=== PATIENT | female | born 1945 | race Two or more races ===

== ENCOUNTER 2024-02-01 03:30 | Inpatient (IN) | payer OTHER, MEDICARE ==
[~2024-02-01] VITALS: Ht 147.3 cm; Wt 84.2 kg
[~2024-02-01 03:30] MED LIST: ALBU108A5 INH; ALLO300T2 PO; AMLO1TAB22 PO; APIX5TAB PO; ASPI-543 PO; ATOR40TA52 PO; CALC750C98 PO; CEPH250C PO; CETI-195 PO; CHOL20007 PO; ERY05OO OP; FURO40TA4 PO; FUROPOW8 XX; LISI10TA34 PO; LISI20TA56 PO; METO25TA93 PO; MOME1AER3 INH; MOME1AER8 INH; MORP15TA PO; ONDA-155 PO; OXYC325T14 PO; PERCOT PO; POTA-228 PO; POTA-264 PO
[2024-02-01 03:45] VITALS: PULSE 91; RESP 22; O2SAT 97
[2024-02-01 04:12] LABS: Basophils # (auto) 0 10 ^3/uL (0-0.2); Basophils % (auto) 0.3 % (0.0-2.0); Eosinophils # (auto) 0.1 10 ^3/uL (0-0.8); Hematocrit 40.1 % (36.0-46.0); Hemoglobin 13.3 g/dL (12.2-16.2); Lymphocytes # (auto) 0.7 10 ^3/uL (0.4-5.4); Lymphocytes % (auto) 6.7 % (10.0-50.0); Mean Corpuscular Hgb Conc. 33.2 g/dL (32.0-36.0); Mean Corpuscular Volume 93.5 fL (80.0-100.0); Monocytes # (auto) 0.4 10 ^3/uL (0-1.3); Monocytes % (auto) 3.8 % (0.0-12.0); Neutrophils # (auto) 8.9 10 ^3/uL (1.6-8.6); Neutrophils % (auto) 88.2 % (37.0-80.0); Platelet Count (auto) 225 10^3/uL (140-450); Red Blood Cells 4.29 10^6/uL (4.0-5.20); Red Cell Distribution Width 21.2 % (11.8-14.3); White Blood Cell 10.1 10^3/uL (4.4-10.8)
[2024-02-01 04:48] LABS: Chloride 110 mmol/L (98-107); Potassium 4.2 mmol/L (3.5-5.1); Sodium 140 mmol/L (136-145)
[2024-02-01 04:49] LABS: Anion Gap 9 (5-15); Carbon Dioxide 21 mmol/L (20-31)
[2024-02-01 04:50] LABS: Calcium 10.2 mg/dL (8.7-10.4)
[2024-02-01] MEDS: FUROSEMIDE 40 MG/4 ML VIAL IV ONE (04:50)
[2024-02-01 04:55] LABS: BUN/Creatinine Ratio 17.9 (10.0-20.0); Blood Urea Nitrogen 15 mg/dL (9-23); Glucose 129 mg/dL (74-106)
[2024-02-01 04:55] LABS: Urine Bacteria FEW /hpf (None Seen); Urine Blood TRACE /uL (Negative); Urine Clarity Clear (Clear); Urine Color Yellow (Yellow); Urine Mucus FEW (None Seen); Urine Protein, UAD TRACE (Negative); Urine Urobilinogen Normal (Negative); Urine WBC <1 /hpf (0 - 5)
[2024-02-01] MEDS ORDERED: NITROGLYCERIN 0.4 MG SL TAB SL PRN (05:30)
[2024-02-01] MEDS: MORPHINE SULFATE 4 MG/ML SYR/VIAL IV ONE (06:11)
[2024-02-01] MEDS: ONDANSETRON HCL 4 MG/2 ML VIAL IV ONE (06:12)
[2024-02-01] MEDS: FUROSEMIDE 20 MG/2 ML VIAL IV SCH (06:21)
[2024-02-01 07:25] VITALS: PULSE 91; RESP 22; O2SAT 97
[2024-02-01 08:08] LABS: COVID19 ANTIGEN SOFIA FIA NEGATIVE (NEGATIVE); Rapid Influenza A Negative (Negative); Rapid Influenza B Negative (Negative)
[2024-02-01] MEDS: HYDROcodone-ACET 10/325MG TAB PO PRN (08:44)
[2024-02-01] MEDS: LISINOPRIL 20 MG TAB PO SCH (10:34)
[2024-02-01] MEDS: ASPirin 81 mg TAB PO SCH (10:34)
[2024-02-01] MEDS: ALLOPURINOL 100 MG TAB PO SCH (10:34)
[2024-02-01] MEDS: APIXABAN 5 MG TAB PO SCH (10:34)
[2024-02-01] MEDS: amLODIPine BESYLATE 5 MG TAB PO SCH (10:35)
[2024-02-01] MEDS: MORPHINE SULFATE INJ 2 MG/ml SYRG IV PRN (10:37)
[2024-02-01] MEDS: METOPROLOL SUCCINATE XL 50 MG TAB PO SCH (12:57)
[2024-02-01] MEDS: OXYCODONE W/ ACETAMINOPHEN 5/325MG TABLET PO PRN (13:24)
[2024-02-01] MEDS: CLINDAMYCIN HCL 150 MG CAP PO SCH (14:22)
[2024-02-01 15:09] LABS: INR 1.33 (0.9-1.15); Partial Thromboplastin Time 33.1 SEC (24.5-34.5); Prothrombin Time 13.8 sec (9.3-11.8)
[2024-02-01 15:27] VITALS: BP 115/72; PULSE 94; RESP 19; TEMP 98.4; O2SAT 96
[2024-02-01 15:54] VITALS: PULSE 94; RESP 19
[2024-02-01 16:35] LABS: Magnesium 1.6 mg/dL (1.6-2.6)
[2024-02-01 20:30] VITALS: PULSE 86; RESP 16; O2SAT 93
[2024-02-01 21:00] VITALS: BP 106/54; PULSE 101; RESP 16; TEMP 98; O2SAT 93
[2024-02-01] MEDS: ATORVASTATIN 20 MG TAB PO SCH (22:35)
[2024-02-02] VITALS (8 sets, daily range): BP systolic 101–113; BP diastolic 50–70; PULSE 76–86; RESP 16–18; TEMP 98–98.7; O2SAT 92–97
[2024-02-02 06:51] LABS: Chloride 104 mmol/L (98-107); Potassium 3.3 mmol/L (3.5-5.1); Sodium 140 mmol/L (136-145)
[2024-02-02 06:52] LABS: Anion Gap 6 (5-15); Calcium 9.2 mg/dL (8.7-10.4); Carbon Dioxide 30 mmol/L (20-31)
[2024-02-02 06:57] LABS: BUN/Creatinine Ratio 11.9 (10.0-20.0); Blood Urea Nitrogen 10 mg/dL (9-23); Glucose 134 mg/dL (74-106)
[2024-02-02 06:58] LABS: Magnesium 1.2 mg/dL (1.6-2.6)
[2024-02-02] MEDS: EMPAGLIFLOZIN 10 MG TAB PO SCH (09:06)
[2024-02-02] MEDS: FLORASTOR (S. BOULARDII) 250 MG CAP PO SCH (09:07)
[2024-02-02] MEDS ORDERED: SENN-36 PO (09:27)
[2024-02-02] MEDS ORDERED: MOME1AER3 INH (09:27)
[2024-02-02] MEDS ORDERED: PERCOT PO (09:27)
[2024-02-02] MEDS: MAGNESIUM SULFATE 1GM/100ML 100 ML IV SCH (12:00)
[2024-02-02] MEDS: POTASSIUM CHL 20 Meq TABLET PO ONE (14:02)
[2024-02-02] MEDS: ONDANSETRON HCL 4 MG/2 ML VIAL IV PRN (14:57)
[2024-02-02] MEDS: MORPHINE SULFATE INJ 2 MG/ml SYRG IV PRN (16:01)
[2024-02-03] VITALS (12 sets, daily range): BP systolic 106–144; BP diastolic 53–71; PULSE 17–89; RESP 16–92; TEMP 97.7–98.8; O2SAT 92–97
[2024-02-03 07:57] LABS: Chloride 100 mmol/L (98-107); Potassium 3.5 mmol/L (3.5-5.1); Sodium 140 mmol/L (136-145)
[2024-02-03 07:58] LABS: Anion Gap 6 (5-15); Carbon Dioxide 34 mmol/L (20-31)
[2024-02-03 07:59] LABS: Calcium 9.5 mg/dL (8.7-10.4)
[2024-02-03 08:03] LABS: Glucose 109 mg/dL (74-106)
[2024-02-03 08:04] LABS: BUN/Creatinine Ratio 10.6 (10.0-20.0); Blood Urea Nitrogen 9 mg/dL (9-23); Magnesium 1.6 mg/dL (1.6-2.6)
[2024-02-03] MEDS: SPIRONOLACTONE 25 MG TAB PO SCH (09:53)
[2024-02-03] MEDS: LISINOPRIL 5 MG TAB PO SCH (09:56)
[2024-02-03] MEDS: POTASSIUM CHL 20 Meq TABLET PO ONE (10:06)
[2024-02-03] MEDS: MAGNESIUM SULFATE 1GM/100ML 100 ML IV ONE (10:07)
[2024-02-03] MEDS: BUDESONIDE (INHALATION) 0.5 MG/2 ML NEB NEB SCH (19:54)
[2024-02-03] MEDS: IPRATROPIUM BROM 0.5 MG/2.5ML INH SOL NEB SCH (19:54)
[2024-02-03] MEDS: ALBUTEROL SULF 2.5 MG/0.5ML(0.5%) NEB SOLN NEB SCH (19:54)
[2024-02-04] VITALS (14 sets, daily range): BP systolic 104–128; BP diastolic 62–69; PULSE 60–93; RESP 16–20; TEMP 97.8–98.2; O2SAT 94–97
[2024-02-04 08:06] LABS: Anion Gap 5 (5-15); Carbon Dioxide 34 mmol/L (20-31); Chloride 99 mmol/L (98-107); Potassium 3.9 mmol/L (3.5-5.1); Sodium 138 mmol/L (136-145)
[2024-02-04 08:07] LABS: Calcium 9.8 mg/dL (8.7-10.4)
[2024-02-04 08:12] LABS: BUN/Creatinine Ratio 11.2 (10.0-20.0); Blood Urea Nitrogen 10 mg/dL (9-23); Glucose 113 mg/dL (74-106)
[2024-02-04 08:36] LABS: Magnesium 1.8 mg/dL (1.6-2.6)
[2024-02-04] MEDS: MAGNESIUM OXIDE 400 MG TAB PO SCH (10:03)
[2024-02-04] MEDS: MAGNESIUM SULFATE 1GM/100ML 100 ML IV ONE (13:34)
[2024-02-05] VITALS (14 sets, daily range): BP systolic 115–128; BP diastolic 60–72; PULSE 60–81; RESP 16–20; TEMP 97.7–98.9; O2SAT 93–96
[2024-02-05] MEDS: LISINOPRIL 5 MG TAB PO SCH (10:00)
[2024-02-05] MEDS: PANTOPRAZOLE 40 MG/10 ML VIAL INJ IV SCH (10:24)
[2024-02-05] MEDS: DOXYCYCLINE 100MG/250ML 250 ML IV SCH (12:58)
[2024-02-06] VITALS (17 sets, daily range): BP systolic 106–140; BP diastolic 55–75; PULSE 56–87; RESP 14–20; TEMP 97.4–98.4; O2SAT 91–100
[2024-02-06 12:29] LABS: Chloride 96 mmol/L (98-107); Potassium 4.2 mmol/L (3.5-5.1); Sodium 136 mmol/L (136-145)
[2024-02-06 12:30] LABS: Anion Gap 5 (5-15); Calcium 10.1 mg/dL (8.7-10.4); Carbon Dioxide 35 mmol/L (20-31)
[2024-02-06 12:35] LABS: BUN/Creatinine Ratio 14.4 (10.0-20.0); Blood Urea Nitrogen 15 mg/dL (9-23); Glucose 107 mg/dL (74-106)
[2024-02-06] MEDS: DOXYCYCLINE 100 MG TAB/CAP PO SCH (22:01)
[2024-02-07] VITALS (13 sets, daily range): BP systolic 99–144; BP diastolic 51–77; PULSE 57–95; RESP 16–20; TEMP 97.3–98.3; O2SAT 92–100
[2024-02-07] MEDS: CARISOPRODOL 350 MG TAB PO PRN (02:52)
[2024-02-07 07:35] LABS: Anion Gap 6 (5-15); Carbon Dioxide 34 mmol/L (20-31); Chloride 97 mmol/L (98-107); Sodium 137 mmol/L (136-145)
[2024-02-07 07:36] LABS: Calcium 9.9 mg/dL (8.7-10.4)
[2024-02-07 07:38] LABS: Basophils # (auto) 0.1 10 ^3/uL (0-0.2); Basophils % (auto) 0.8 % (0.0-2.0); Eosinophils # (auto) 0.7 10 ^3/uL (0-0.8); Eosinophils % (auto) 8.2 % (0.0-7.0); Hematocrit 42.6 % (36.0-46.0); Hemoglobin 14.2 g/dL (12.2-16.2); Lymphocytes # (auto) 1.8 10 ^3/uL (0.4-5.4); Lymphocytes % (auto) 20.7 % (10.0-50.0); Mean Corpuscular Hemoglobin 30.8 pg (28.0-32.0); Mean Corpuscular Hgb Conc. 33.3 g/dL (32.0-36.0); Mean Corpuscular Volume 92.7 fL (80.0-100.0); Monocytes # (auto) 0.8 10 ^3/uL (0-1.3); Neutrophils # (auto) 5.4 10 ^3/uL (1.6-8.6); Neutrophils % (auto) 61.3 % (37.0-80.0); Nucleated Red Blood Cells % 0.1 %; Platelet Count (auto) 249 10^3/uL (140-450); Red Blood Cells 4.59 10^6/uL (4.0-5.20); Red Cell Distribution Width 20.8 % (11.8-14.3); White Blood Cell 8.8 10^3/uL (4.4-10.8)
[2024-02-07 07:41] LABS: Blood Urea Nitrogen 23 mg/dL (9-23); Glucose 106 mg/dL (74-106)
[2024-02-07] MEDS: DOCUSATE SOD 100 MG CAP PO SCH (21:54)
[2024-02-08] VITALS (17 sets, daily range): BP systolic 106–145; BP diastolic 53–98; PULSE 63–87; RESP 16–96; TEMP 97.5–98.7; O2SAT 95–100
[2024-02-09] VITALS (14 sets, daily range): BP systolic 104–119; BP diastolic 55–71; PULSE 56–77; RESP 14–20; TEMP 97.6–98.7; O2SAT 92–99
[2024-02-09] MEDS: FUROSEMIDE 20 MG TAB PO SCH (08:50)
[2024-02-09] MEDS: ACETAMINOPHEN 325 MG TAB PO PRN (20:07)
[2024-02-10] VITALS (17 sets, daily range): BP systolic 103–131; BP diastolic 49–82; PULSE 59–89; RESP 16–22; TEMP 97.3–98.2; O2SAT 91–99
[2024-02-10] MEDS ORDERED: DOXY100C79 PO (09:47)
[2024-02-10] MEDS: FUROSEMIDE 20 MG/2 ML VIAL IV SCH (10:47)
[2024-02-11] VITALS (15 sets, daily range): BP systolic 112–132; BP diastolic 66–82; PULSE 70–93; RESP 16–19; TEMP 36.4; O2SAT 71–98
== END 2024-02-11 20:50 | disposition home health service (06) | DRG 602 ==
LOC: EDBD 03:30 → ER 03:30 → TELE 05:45 → TELE-CENTR 15:45 → CENTRAL 02-06 20:21
PROVIDERS: ADMIT Nurse Practitioner; ATTEND Nurse Practitioner Acute Care
DX: L03.115 Cellulitis of right lower limb (principal); I50.43 Acute on chronic combined systolic (congestive) and diastolic (congestive) heart failure; I13.0 Hypertensive heart and chronic kidney disease with heart failure and stage 1 through stage 4 chronic kidney disease, or unspecified chronic kidney disease; D68.9 Coagulation defect, unspecified; I31.39 Other pericardial effusion (noninflammatory); Z20.822 Contact with and (suspected) exposure to COVID-19; L03.116 Cellulitis of left lower limb; I48.91 Unspecified atrial fibrillation; N18.9 Chronic kidney disease, unspecified; E66.01 Morbid (severe) obesity due to excess calories; J44.89 Other specified chronic obstructive pulmonary disease; E78.5 Hyperlipidemia, unspecified; Z99.81 Dependence on supplemental oxygen; M16.11 Unilateral primary osteoarthritis, right hip; M17.11 Unilateral primary osteoarthritis, right knee; F03.90 Unspecified dementia, unspecified severity, without behavioral disturbance, psychotic disturbance, mood disturbance, and anxiety; I45.10 Unspecified right bundle-branch block; I89.0 Lymphedema, not elsewhere classified; K59.00 Constipation, unspecified; R32 Unspecified urinary incontinence; F41.9 Anxiety disorder, unspecified; G89.29 Other chronic pain; Z90.49 Acquired absence of other specified parts of digestive tract; Z87.891 Personal history of nicotine dependence; Z85.3 Personal history of malignant neoplasm of breast; Z90.13 Acquired absence of bilateral breasts and nipples; Z85.840 Personal history of malignant neoplasm of eye; Z88.8 Allergy status to other drugs, medicaments and biological substances; Z91.09 Other allergy status, other than to drugs and biological substances; Z79.899 Other long term (current) drug therapy; Z79.1 Long term (current) use of non-steroidal anti-inflammatories (NSAID); Z90.711 Acquired absence of uterus with remaining cervical stump; Z91.048 Other nonmedicinal substance allergy status; Z80.0 Family history of malignant neoplasm of digestive organs; Z83.3 Family history of diabetes mellitus; Z79.01 Long term (current) use of anticoagulants
CPT/HCPCS: 36415; 71045; 73502; 73562; 80048; 80061; 81001; 83036; 83605; 83735; 83880; 84443; 84484; 85025; 85379; 85610; 85730; 87040; 87426; 87804; 93005; 93306; 93970; 94640; 97110; 97116; 97163; 97530; 99291; G0378; J2405; J2470; J3490

== ENCOUNTER 2024-04-04 17:44 | Inpatient (IN) | payer OTHER, MEDICARE ==
[~2024-04-04] VITALS: Ht 147.3 cm; Wt 79.3 kg
[~2024-04-04 17:44] MED LIST changes: -CEPH250C PO; +DOXY100C79 PO; -ERY05OO OP; +FURO20TA3 PO; -FUROPOW8 XX; -LISI10TA34 PO; -MOME1AER8 INH; -PERCOT PO; -POTA-264 PO; +SENN-36 PO
--- NOTE | 2024-04-04 18:18 | ECG ---
[facility] Test Date: 2024-04-04 Test Time: 18:05:10 Pat Name: SHILA LERNER Department: ER Room: 0277T Gender: F Manager Java: SALLY : 1945 Requested By: MISTY ONEILL Order Number: [id number] Reading MD: Eriberto Julio Measurements Intervals [place] Rate: 97 P: 0 ID: [id number] QRS: -7 QRSD: 154 T: 180 QT: 353 QTc: 449 Interpretive Statements Atrial fibrillation Right bundle branch block Electronically Signed On 04-07-2024 10:24:20 PST by Eriberto Julio Please click the below link to view image of tracing.
--- NOTE | 2024-04-04 18:24 | ED.PDOC ---
SOB-HPI HPI Comments 79 year old female presents to the ED with chief complaint of SOB. Patient reports she was seen in [facility] on 02/01/24 for SOB and leg swelling where she was diagnosed with an infection to her bilateral legs, being given antibiotics until discharged on 02/10/24. Patient relays that her SOB, leg swelling, and discoloration were resolving with the antibiotics, however, a week ago she begun to experience her symptoms yet again. Patient notes that she has been on 5L of O2 for relief, however, her machine is running out of battery now and needs to be placed on O2. Patient denies any cough, fever, chills, chest pain, dizziness, or headache. Chief Complaint: Shortness of Breath Time Seen by MD: 18:09 Primary Care Provider: DR SRAVANTHI OLIVAREZ Reviewed notes: Nurses Notes, Senior Physical Therapist Notes, Medications, Allergies Information Source: Patient, Emergency Med Personnel Mode of Arrival: EMS Severity: Moderate Timing: Weeks Duration: Since onset Context: At Rest PE Risk Factors: None History of: COPD, CHF Prehospital treatment: Oxygen Modifying Factors: Nothing Associated Signs and Symptoms: Leg Swelling Past Medical History PAST MEDICAL HISTORY: AFIB, Asthma, Cancer, CHF, CKF, Dementia, HTN Surgical History: Appendectomy, Cholecystectomy, Hysterectomy, Tonsillectomy 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 Hx Family History Family History: No family hx of Cancer, No family hx of DM, No family hx of HTN, No family hx ofKidney waqas, No family hx of Liver waqas, No family hx of Lung waqas, No family hx of Stroke, Family hx of heart waqas Social History Smoker: Non-Smoker, Quit Greater Than 1 Year Alcohol: Denies ETOH Use Drugs: Denies Drug Use Lives In: Home Constitutional: denies: chills, diaphoresis, fatigue, fever, malaise, sweats, weakness, others EENTM: denies: blurred vision, double vision, ear bleeding, ear discharge, ear drainage, ear pain, ear ringing, eye pain, eye redness, hearing loss, mouth pain, mouth swelling, nasal discharge, nose bleeding, nose congestion, nose pain, photophobia, tearing, throat pain, throat swelling, voice changes, others Respiratory: reports: shortness of breath; denies: cough, hemoptysis, orthopnea, SOB at rest, SOB with excertion, stridor, wheezing, others Cardiovascular: reports: edema; denies: chest pain, dizzy spells, diaphoresis, Dyspnea on exertion, irregular heart beat, left arm pain, lightheadedness, palpitations, PND, syncope, others Gastrointestinal: denies: abdomen distended, abdominal pain, blood streaked bowels, constipated, diarrhea, dysphagia, difficulty swallowing, hematemesis, melena, nausea, poor appetite, poor fluid intake, rectal bleeding, rectal pain, vomiting, others Genitourinary: denies: abnormal vagina bleeding, burning, dyspareunia, dysuria, flank pain, frequency, hematuria, incontinence, pain, , vagina discharge, urgency, others Neurological: denies: dizziness, fainting, headache, left sided numbness, left sided weakness, numbness, paresthesia, pre-existing deficit, right sided numbness, right sided weakness, seizure, speech problems, tingling, tremors, weakness, others Integumetry: reports: others (Redness to legs); denies: bruises, change in color, change in hair/nails, dryness, laceration, lesions, lumps, rash, wounds Allergic/Immunocompromised: denies: Difficulty Healing, Frequent Infections, Hives, Itching, others Hematologic/Lymphatic: denies: anemia, blood clots, easy bleeding, easy bruising, swollen glands, others Endocrine: denies: excessive hunger, excessive sweating, excessive thirst, excessive urination, flushing, intolerance to cold, intolerance to heat, unexplained weight gain, unexplained weight loss, others Psychiatric: denies: anxiety, bipolar disorder, depression, hopeless, panic disorder, schizophrenia, sleepless, suicidal, others All Other Systems: Reviewed and Negative Physical Exam General Appearance: Moderate Distress, Obese HEENT: Normal ENT Inspection, Pharynx Normal, TMs Normal Neck: Full Range of Motion, Non-Tender, Normal, Normal Inspection Respiratory: Chest Non-Tender, Lungs Clear, No Accessory Muscle Use, No Respiratory Distress, Normal Breath Sounds Cardiovascular: No Edema, No JVD, No Murmur, No Gallop, Normal Peripheral Pulses, Regular Rate/Rhythm Breast Exam: Deferred Gastrointestinal: No Organomegaly, Non Tender, No Pulsatile Mass, Normal Bowel Sounds, Soft Genitalia: Deferred Pelvic: Deferred Rectal: Deferred Extremities: No calf tenderness, Normal capillary refill, Pedal edema Musculoskeletal : Apperance: Normal Neurologic: Alert, 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 Was a procedure done?: No Differential Dx Differential Diagnosis: Asthma, Bronchitis, Cardiogenic Shock, CHF, COPD, Myocardial infarction X-Ray, Labs, Meds, VS Vital Signs Date Time Temp Pulse Resp B/P (MAP) Pulse Ox O2 Delivery O2 Flow Rate FiO2 04/04/24 20:32 100 Nasal Cannula* 5 40 04/04/24 20:26 120/61 04/04/24 20:00 76 14 120/61 (80) 100 04/04/24 20:00 76 04/04/24 19:30 14 100 Nasal Cannula* 5 40 04/04/24 19:04 68 04/04/24 18:24 98 04/04/24 18:05 97 04/04/24 17:58 97.3 72 15 116/74 (88) 96 Lab Test 04/04/24 19:44 04/04/24 18:38 Range/Units Troponin I High Sensitivity 6 6 </=34 ng/L White Blood Count 10.3 4.4-10.8 10^3/uL Red Blood Count 4.41 4.0-5.20 10^6/uL Hemoglobin 14.1 12.2-16.2 g/dL Hematocrit 42.6 36.0-46.0 % Mean Corpuscular Volume 96.4 80.0-100.0 fL Mean Corpuscular Hemoglobin 31.9 28.0-32.0 pg Mean Corpuscular Hemoglobin Concent 33.0 32.0-36.0 g/dL Red Cell Distribution Width 19.7 H 11.8-14.3 % Platelet Count 255 140-450 10^3/uL Mean Platelet Volume 8.3 6.9-10.8 fL Neutrophils (%) (Auto) 78.3 37.0-80.0 % Lymphocytes (%) (Auto) 14.4 10.0-50.0 % Monocytes (%) (Auto) 5.3 0.0-12.0 % Eosinophils (%) (Auto) 1.6 0.0-7.0 % Basophils (%) (Auto) 0.4 0.0-2.0 % Neutrophils # (Auto) 8.1 1.6-8.6 10 ^3/uL Lymphocytes # (Auto) 1.5 0.4-5.4 10 ^3/uL Monocytes # (Auto) 0.5 0-1.3 10 ^3/uL Eosinophils # (Auto) 0.2 0-0.8 10 ^3/uL Basophils # (Auto) 0 0-0.2 10 ^3/uL Nucleated Red Blood Cells 0.1 % Sodium Level 143 136-145 mmol/L Potassium Level 4.1 3.5-5.1 mmol/L Chloride Level 111 H 98-107 mmol/L Carbon Dioxide Level 22 20-31 mmol/L Anion Gap 10 5-15 Blood Urea Nitrogen 14 9-23 mg/dL Creatinine 0.85 0.550-1.02 mg/dL Glomerular Filtration Rate Calc 70 >90 mL/min BUN/Creatinine Ratio 16.5 10.0-20.0 Serum Glucose 122 H 74-106 mg/dL Calcium Level 10.5 H 8.7-10.4 mg/dL B-Type Natriuretic Peptide 855.70 0-100 pg/mL Current Medications Medications (Trade) Dose Ordered Sig/Leonard Route Start Time Stop Time Status Last Admin Furosemide (Lasix Injection) 60 mg ONCE ONCE IV 04/04/24 18:30 04/04/24 18:31 DC 04/04/24 20:26 The chest x-ray shows:IMPRESSION: 1. Mild cardiomegaly otherwise no active cardiopulmonary disease. The patient was given Lasix 60 mg IV push The BNP is 855 The patient's CBC is within normal limits The chemistry panel is within normal limits The troponin level x2 is negative At this time, the patient was being admitted to the hospitalist A cardiology consult will be obtained. Images Reviewed?: Images reviewed and evaluated by me Time of 1ST Reevaluation: 21:02 Reevaluation 1ST: Unchanged Patient Education/Counseling: Diagnosis, Treatment, Prognosis Family Education/Counseling: Diagnosis, Treatment, Prognosis Departure 1 Departure Time of Disposition: 21:02 Impression: Primary Impression: Acute on chronic diastolic heart failure Disposition: 09 ADMITTED INPATIENT Admit to: [facility] Condition: Fair Critical Care Note Critical Care Time?: Yes (35 min-critical care time only) Stability Stability form required: Yes Unstable for transfer: Telemetry monitoring (Telemetry monitoring required), ED Physician Assesment (Clinical assesment) Heart Score Heart Score: Heart Score Response (Comments) Value History N/A 0 EKG N/A 0 Age N/A 0 Risk Factors N/A 0 Troponin N/A 0 Total 0 I personally scribed for MISTY ONEILL MD ([email or web address]) on 04/04/24 at 18:24. Electronically submitted by Herminio Wells ([email or web address]). MISTY ONEILL MD Apr 04, 2024 18:24
--- NOTE | 2024-04-04 19:02 | DVH ---
CHEST RADIOGRAPH Indication: sob Technique: Single frontal view of the chest was obtained Comparison: XY CHEST XRAY 1 VIEW on DOS: 02/02/24, XY CHEST PORTABLE on DOS: 02/01/24 Findings/ IMPRESSION: 1. Mild cardiomegaly otherwise no active cardiopulmonary disease.
[2024-04-04 19:07] LABS: Potassium 4.1 mmol/L (3.5-5.1); Sodium 143 mmol/L (136-145)
[2024-04-04 19:08] LABS: Anion Gap 10 (5-15); Carbon Dioxide 22 mmol/L (20-31)
[2024-04-04 19:13] LABS: BUN/Creatinine Ratio 16.5 (10.0-20.0); Blood Urea Nitrogen 14 mg/dL (9-23)
[2024-04-04 19:30] VITALS: RESP 14; O2SAT 100
[2024-04-04 19:45] LABS: Calcium 10.5 mg/dL (8.7-10.4); Chloride 111 mmol/L (98-107); Glucose 122 mg/dL (74-106)
[2024-04-04 19:46] LABS: Basophils # (auto) 0 10 ^3/uL (0-0.2); Basophils % (auto) 0.4 % (0.0-2.0); Eosinophils # (auto) 0.2 10 ^3/uL (0-0.8); Eosinophils % (auto) 1.6 % (0.0-7.0); Hematocrit 42.6 % (36.0-46.0); Hemoglobin 14.1 g/dL (12.2-16.2); Lymphocytes # (auto) 1.5 10 ^3/uL (0.4-5.4); Lymphocytes % (auto) 14.4 % (10.0-50.0); Mean Corpuscular Hemoglobin 31.9 pg (28.0-32.0); Mean Corpuscular Volume 96.4 fL (80.0-100.0); Monocytes # (auto) 0.5 10 ^3/uL (0-1.3); Monocytes % (auto) 5.3 % (0.0-12.0); Neutrophils # (auto) 8.1 10 ^3/uL (1.6-8.6); Neutrophils % (auto) 78.3 % (37.0-80.0); Nucleated Red Blood Cells % 0.1 %; Platelet Count (auto) 255 10^3/uL (140-450); Red Blood Cells 4.41 10^6/uL (4.0-5.20); Red Cell Distribution Width 19.7 % (11.8-14.3); White Blood Cell 10.3 10^3/uL (4.4-10.8)
[2024-04-04] MEDS ORDERED: MORPHINE SULFATE INJ 2 MG/ml SYRG IV PRN (20:00)
[2024-04-04] MEDS ORDERED: NITROGLYCERIN 0.4 MG SL TAB SL PRN (20:00)
[2024-04-04] MEDS: FUROSEMIDE 100 MG/10ML VIAL IV ONE (20:26)
[2024-04-04] MEDS ORDERED: ALBUTEROL SULF 2.5 MG/0.5ML(0.5%) NEB SOLN NEB PRN (20:30)
[2024-04-04] MEDS ORDERED: ONDANSETRON HCL 4 MG/2 ML VIAL IV PRN (20:30)
[2024-04-04] MEDS ORDERED: ACETAMINOPHEN 325 MG TAB PO PRN (20:30)
[2024-04-04] MEDS: APIXABAN 5 MG TAB PO SCH (22:23)
[2024-04-04] MEDS: ATORVASTATIN 20 MG TAB PO SCH (22:25)
[2024-04-04 22:51] VITALS: BP 115/56; PULSE 73; RESP 17; TEMP 97.3; O2SAT 100
[2024-04-04 23:30] VITALS: BP 131/76; PULSE 79; RESP 18; TEMP 97.9; O2SAT 97
[2024-04-04] MEDS: HYDROcodone-ACET 7.5/325MG TAB PO PRN (23:48)
[2024-04-04 23:51] VITALS: BP 131/76; PULSE 79; RESP 17; TEMP 97.9; O2SAT 97
[2024-04-05] VITALS (9 sets, daily range): BP systolic 113–129; BP diastolic 65–76; PULSE 67–95; RESP 17–20; TEMP 97.5–99; O2SAT 94–96
--- NOTE | 2024-04-05 05:00 | DVHHP2 ---
History of Present Illness Reason for Visit: Shortness of breath History of Present Illness 79-year-old female presents for evaluation of shortness for breath. Patient reports a one-week history of worsening shortness for breath with bilateral lower extremity swelling. She reports mild chest pressure. Denies cough or fever. No other acute complaint reported. Past Medical History Cancer, asthma, AFib, chronic kidney disease, CHF, hypertension Past Surgical History Cholecystectomy, appendectomy, hysterectomy and tonsillectomy Family History Noncontributory Smoke: No ALCOHOL: none Drugs: None Lives: with Family Review of Systems Review of Systems Review of systems are currently negative otherwise addressed in HPI. Allergies: Coded Allergies: Diphenhydramine (Verified Allergy, Unknown, 09/21/22) Uncoded Allergies: TAPE (Allergy, Unknown, 09/21/22) Medications Current Medications Medications Dose Ordered Sig/Leonard Route Start Time Stop Time Status Last Admin Dose Admin Nitroglycerin 0.4 mg Q5MINP PRN SL 04/04/24 20:00 Morphine Sulfate 2 mg Q30M PRN IV 04/04/24 20:00 Atorvastatin Calcium 40 mg HS PO 04/04/24 22:00 04/04/24 22:25 40 MG Albuterol 2.5 mg Q6HPRN PRN NEB 04/04/24 20:30 Apixaban 5 mg BID PO 04/04/24 22:00 04/04/24 22:23 5 MG Metoprolol Succinate 25 mg DAILY PO 04/05/24 10:00 Aspirin 81 mg DAILY PO 04/05/24 10:00 Amlodipine Besylate 5 mg DAILY PO 04/05/24 10:00 Lisinopril 20 mg DAILY PO 04/05/24 10:00 Furosemide 20 mg BIDD IV 04/05/24 06:00 Ondansetron HCl 4 mg Q4HP PRN IV 04/04/24 20:30 Acetaminophen 650 mg Q6HP PRN PO 04/04/24 20:30 Acetaminophen/ Hydrocodone Bitart 1 tab Q8HP PRN PO 04/04/24 22:40 04/04/24 23:48 1 TAB Exam Vital Signs Vital Signs Date Time Temp Pulse Resp B/P (MAP) Pulse Ox O2 Delivery O2 Flow Rate FiO2 04/05/24 03:28 97.8 67 17 113/68 (83) 96 97.8 04/04/24 23:51 Nasal Cannula* 5 40 Exam Gen: 79-year-old female in mild distress Skin: Warm, dry, normal color and texture, no rash. HEENT: Normocephalic atraumatic, mucous membranes moist and pink. Neck: Cervical and supraclavicular nodes normal without enlargement, trachea is midline, thyroid gland is normal without masses. Pulmonary: Clear to auscultation and percussion bilaterally. Cardiac: Regular rate and rhythm. No murmur Abdomen: Soft, nontender, nondistended, bowel sounds present all 4 quadrants, no guarding, no rigidity, no organomegaly. Extremities: No cyanosis, clubbing, plus two bilateral pedal edema Neuro: Cranial nerves II through XII grossly intact, normal affect and speech, no focal motor deficits. Labs/Xrays ORDERING PHYSICIAN: ROLANDO DEJESUS PROCEDURE(s): ECIDC - ECHO 2D MODE CARDIAC DOP REASON: ef ORDER NUMBER(s): [id number], ACCESSION NUMBER(s): [id number] APPROVED REPORT EXAM: LIMITED Two-dimensional and M-mode echocardiogram with Doppler and color Doppler. Blood Pressure: 123/83 mmHg INDICATION EF RISK FACTORS Obesity: Height: 4'10", Weight: 300 DIMENSIONS LVDd 5.0 (3.8-5.7cm) LA (2D) (1.9-4.0cm) Aortic Root 3.2 (2.0- 3.7cm) LVDs 3.5 (2.5-4.0cm) LA (MM) (1.9-4.0cm) Aortic Cusp Exc 1.2 (1.5- 2.0cm) EF (%) 55.0 (55-70%) Rt. Atrium (1.9-4.0cm) Asc. Aorta cm IVSd 1.1 (0.7-1.1cm) RV (D) (1.8-2.4cm) PWd 1.3 (0.7-1.1cm) Mitral Valve Mitral Mitral Stenosis E/A ratio 0.0 2D MVA cm2 Aortic Valve Aortic Valve Aortic Stenosis LVOT Diameter 1.9 (1.8-2.4cm) Doppler ZAID cm2 Pulmonic Valve V2 1.12m/s Tricuspid Valve TR Velocity 3.21m/s RVSP 56mmHg Other Information Quality : Technically Limited Rhythm : Technically limited study due to body habitus and patient position. Conclusion Normal left ventricular size and dimension. Mildly reduced left ventricular systolic function in global fashion and 45-50% %. Patient is in atrial fibrillation. Normal right ventricular size and dimension. Normal right ventricular systolic function. Normal biatrial size and dimension. The aortic valve is thickened and sclerotic Normal mitral valve structure and function. Normal tricuspid valve structure and function. Normal tricuspid valve structure and function. There is mild pulmonary valve regurgitation. There is a small pericardial effusion SIGNED BY: THELMA ALLEN MD SIGNED DATE/TIME: 02/01/24 1531ORDERING PHYSICIAN: MISTY ONEILL MD PROCEDURE(s): CXRP - CHEST PORTABLE REASON: sob ORDER NUMBER(s): [id number], ACCESSION NUMBER(s): [id number] CHEST RADIOGRAPH Indication: sob Technique: Single frontal view of the chest was obtained Comparison: XY CHEST XRAY 1 VIEW on DOS: 02/02/24, XY CHEST PORTABLE on DOS: 02/01/24 Findings/ IMPRESSION: 1. Mild cardiomegaly otherwise no active cardiopulmonary disease. Labs Test 04/04/24 19:44 04/04/24 18:38 Range/Units Troponin I High Sensitivity 6 </=34 ng/L White Blood Count 10.3 4.4-10.8 10^3/uL Red Blood Count 4.41 4.0-5.20 10^6/uL Hemoglobin 14.1 12.2-16.2 g/dL Hematocrit 42.6 36.0-46.0 % Mean Corpuscular Volume 96.4 80.0-100.0 fL Mean Corpuscular Hemoglobin 31.9 28.0-32.0 pg Mean Corpuscular Hemoglobin Concent 33.0 32.0-36.0 g/dL Red Cell Distribution Width 19.7 H 11.8-14.3 % Platelet Count 255 140-450 10^3/uL Mean Platelet Volume 8.3 6.9-10.8 fL Neutrophils (%) (Auto) 78.3 37.0-80.0 % Lymphocytes (%) (Auto) 14.4 10.0-50.0 % Monocytes (%) (Auto) 5.3 0.0-12.0 % Eosinophils (%) (Auto) 1.6 0.0-7.0 % Basophils (%) (Auto) 0.4 0.0-2.0 % Neutrophils # (Auto) 8.1 1.6-8.6 10 ^3/uL Lymphocytes # (Auto) 1.5 0.4-5.4 10 ^3/uL Monocytes # (Auto) 0.5 0-1.3 10 ^3/uL Eosinophils # (Auto) 0.2 0-0.8 10 ^3/uL Basophils # (Auto) 0 0-0.2 10 ^3/uL Nucleated Red Blood Cells 0.1 % Sodium Level 143 136-145 mmol/L Potassium Level 4.1 3.5-5.1 mmol/L Chloride Level 111 H 98-107 mmol/L Carbon Dioxide Level 22 20-31 mmol/L Anion Gap 10 5-15 Blood Urea Nitrogen 14 9-23 mg/dL Creatinine 0.85 0.550-1.02 mg/dL Glomerular Filtration Rate Calc 70 >90 mL/min BUN/Creatinine Ratio 16.5 10.0-20.0 Serum Glucose 122 H 74-106 mg/dL Calcium Level 10.5 H 8.7-10.4 mg/dL B-Type Natriuretic Peptide 855.70 0-100 pg/mL Assessment/Plan Assessment/Plan Assessment Acute on chronic congestive heart failure Hypertension Asthma Plan Admit the patient to telemetry to the hospitalist MANUEL Bailey Resume home medications Med nebs Continue treatment per orders. Plan discussed with: Patient My Orders Orders - ROLANDO DEJESUS AGACN Procedure Category Date Status Time Admit ADMIT 04/04/24 Transmitted 20:00 Nitroglycerin PHA 04/04/24 In Process Sublingual (Ntrostat 20:00 Morphine Sulfate PHA 04/04/24 In Process Injection 20:00 Stat Ekg For Chest DEBRA 04/04/24 In Process Pain 20:00 Notify Of Changes DEBRA 04/04/24 In Process From Base 20:00 Inspector [place] For DEBRA 04/04/24 In Process 24 Hours 20:00 Emergency Dysrhythmia DEBRA 04/04/24 In Process Protocol 20:00 Rhythm Strips Once DEBRA 04/04/24 In Process Every Shift 20:00 Oxygen By Nasal RT 04/04/24 Transmitted Cannula 20:00 Atorvastatin (Lipitor) PHA 04/04/24 In Process 22:00 Albuterol Medneb PHA 04/04/24 In Process (Ventolin Medneb) 20:30 Apixaban (Eliquis) PHA 04/04/24 In Process 22:00 Metoprolol Xl PHA 04/05/24 In Process Succinate (Toprol Xl) 10:00 Aspirin Tablet PHA 04/05/24 In Process 10:00 Amlodipine Tablet PHA 04/05/24 In Process (Norvasc Tablet) 10:00 Lisinopril Tablet PHA 04/05/24 In Process (Zestril Tablet) 10:00 Furosemide Injection PHA 04/05/24 In Process (Lasix Injection) 06:00 Basic Metabolic Panel LAB 04/05/24 Logged 04:00 Ondansetron Hcl PHA 04/04/24 In Process (Zofran) 20:30 Cardiac DIET 04/05/24 Transmitted Diet-2gna,Lofat,Lochol Breakfast Condition: Fair DEBRA 04/04/24 In Process 20:25 Acetaminophen Tablet PHA 04/04/24 In Process (Tylenol Tablet) 20:30 Bedrest With Bathroom DEBRA 04/04/24 In Process Privileg 20:25 Hydrocodone-Acet PHA 04/04/24 In Process 7.5/325mg Tab ([place] 22:40 Date of Service: Apr 04, 2024 Billing Provider: ROLANDO DEJESUS Common Visit Codes: [id number] INP/OBS CARE (HIGH) ROLANDO DEJESUS Apr 05, 2024 05:00
[2024-04-05] MEDS: FUROSEMIDE 20 MG/2 ML VIAL IV SCH (05:47)
[2024-04-05 08:50] LABS: Chloride 106 mmol/L (98-107); Potassium 3.9 mmol/L (3.5-5.1); Sodium 140 mmol/L (136-145)
[2024-04-05 08:51] LABS: Anion Gap 9 (5-15); Carbon Dioxide 25 mmol/L (20-31)
[2024-04-05 08:56] LABS: Blood Urea Nitrogen 12 mg/dL (9-23)
[2024-04-05 09:06] LABS: Calcium 10.4 mg/dL (8.7-10.4); Glucose 118 mg/dL (74-106)
[2024-04-05] MEDS: ASPirin 81 mg TAB PO SCH (11:31)
[2024-04-05] MEDS: METOPROLOL SUCCINATE XL 50 MG TAB PO SCH (11:31)
[2024-04-05] MEDS: amLODIPine BESYLATE 5 MG TAB PO SCH (11:32)
[2024-04-05] MEDS: LISINOPRIL 20 MG TAB PO SCH (11:32)
[2024-04-05] MEDS: OXYCODONE W/ ACETAMINOPHEN 5/325MG TABLET PO PRN (14:47)
--- NOTE | 2024-04-05 16:22 | DVHPN2 ---
Subjective Patient continues to report having chronic pain to her lower extremities and lower back. Also reports that her swelling to her lower extremities has slightly improved since yesterday. Reviewed: Care Plan, H&P, Labs, Medications Changes from previous H/P or p: No Changes General: Per HPI Objective Vitals Vital Signs Date Time Temp Pulse Resp B/P (MAP) Pulse Ox O2 Delivery O2 Flow Rate FiO2 04/05/24 13:00 98.6 68 20 129/76 (93) 94 98.6 04/05/24 10:00 Nasal Cannula 4.0 04/05/24 10:00 36 Intake/Output Intake and Output 04/05/24 07:00 Intake Total 100 ml Output Total 3800 ml Balance -3700 ml Intake Oral 100 ml Output Urine Total 3800 ml General Appearance: Alert, Oriented X3, Cooperative, No acute distress, mild distress HEENT: Atraumatic, PERRLA Lungs: Clear to auscultation, Normal air movement Cardiovascular: Normal S1, Normal S2, Other (Atrial fibrillation) Genitourinary: No Apparent Abnormalities (H[place] catheterization) Musculoskeletal: Normal sensory function, Normal motor function Extremities: Other (Plus three pitting edema to lower extremity) Psych/Mental Status: Mental status NL, Mood NL Medications Current Medications Medications Dose Ordered Sig/Leonard Route Start Time Stop Time Status Last Admin Dose Admin Nitroglycerin 0.4 mg Q5MINP PRN SL 04/04/24 20:00 Morphine Sulfate 2 mg Q30M PRN IV 04/04/24 20:00 Atorvastatin Calcium 40 mg HS PO 04/04/24 22:00 04/04/24 22:25 40 MG Albuterol 2.5 mg Q6HPRN PRN NEB 04/04/24 20:30 Apixaban 5 mg BID PO 04/04/24 22:00 04/05/24 11:33 5 MG Metoprolol Succinate 25 mg DAILY PO 04/05/24 10:00 04/05/24 11:31 25 MG Aspirin 81 mg DAILY PO 04/05/24 10:00 04/05/24 11:31 81 MG Amlodipine Besylate 5 mg DAILY PO 04/05/24 10:00 04/05/24 11:32 5 MG Lisinopril 20 mg DAILY PO 04/05/24 10:00 04/05/24 11:32 20 MG Furosemide 20 mg BIDD IV 04/05/24 06:00 04/05/24 05:47 20 MG Ondansetron HCl 4 mg Q4HP PRN IV 04/04/24 20:30 Acetaminophen 650 mg Q6HP PRN PO 04/04/24 20:30 Oxycodone/ Acetaminophen 2 tab Q6HP PRN PO 04/05/24 14:15 04/05/24 14:47 2 TAB Empaglifozin 10 mg DAILY PO 04/06/24 10:00 Laboratory Results Laboratory Tests 04/04/24 18:38 04/05/24 07:59 Chemistry Test 04/04/24 18:38 04/05/24 07:59 Calcium Level 10.5 mg/dL (8.7-10.4) H 10.4 mg/dL (8.7-10.4) Cardiac Markers Test 04/04/24 18:38 B-Type Natriuretic Peptide 855.70 pg/mL (0-100) Labs and/or images reviewed: Labs reviewed by me, Image(s) reviewed by me Assessment/Plan Assessment/Plan Impression: -acute on chronic systolic heart failure -acute hypoxic respiratory failure secondary to pulmonary vascular congestion -atrial fibrillation -morbid obesity -chronic pain management -primary hypertension -COPD -asthma -deconditioning -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 Change Nice to Percocet -bronchodilators p.r.n. -repeat labs in a.m. Total time spent with patient discussing and formulating plan of care: 35 minutes. This medical document was created using an electronic medical record system with [employer] dictation system. Although this document has been carefully reviewed, there may still be some phonetic and typographical errors. These areas are purely typographical due to imperfections of the software programs, and do not reflect any compromise in the patient's medical care. Plan discussed with: Patient, Spouse, Other (RN) My Orders Orders - KLAUS ZAMORANO NP Procedure Category Date Status Time Oxycodone W/ Acet PHA 04/05/24 In Process 5/325mg Tab (Percocet 14:15 Empagliflozin PHA 04/06/24 In Process (Jardiance) 10:00 Date of Service: Apr 05, 2024 Billing Provider: KLAUS ZAMORANO NP Common Visit Codes: [id number] INP/OBS CARE(HIGH) KLAUS ZAMORANO NP Apr 05, 2024 16:22
[2024-04-06] VITALS (7 sets, daily range): BP systolic 108–131; BP diastolic 59–69; PULSE 59–95; RESP 18; TEMP 97.5–99; O2SAT 94–97
[2024-04-06] MEDS: EMPAGLIFLOZIN 10 MG TAB PO SCH (10:13)
--- NOTE | 2024-04-06 15:02 | DVHPN2 ---
Subjective Reports that her swelling has improved with her legs. Reviewed: Care Plan, H&P, Labs, Medications Changes from previous H/P or p: No Changes General: Per HPI Objective Vitals Vital Signs Date Time Temp Pulse Resp B/P (MAP) Pulse Ox O2 Delivery O2 Flow Rate FiO2 04/06/24 10:15 95 122/62 04/06/24 08:15 18 97 Nasal Cannula* 5 40 04/05/24 17:00 99.0 99.0 Intake/Output Intake and Output 04/06/24 07:00 Intake Total 1150 ml Output Total 3150 ml Balance -2000 ml Intake Oral 1150 ml Output Urine Total 3150 ml General Appearance: Alert, Oriented X3, Cooperative, No acute distress, mild distress HEENT: Atraumatic, PERRLA Lungs: Clear to auscultation, Normal air movement Cardiovascular: Normal S1, Normal S2, Other (Atrial fibrillation) Genitourinary: No Apparent Abnormalities (Hutchinson catheterization) Musculoskeletal: Normal sensory function, Normal motor function Extremities: Other (Plus three pitting edema to lower extremity) Psych/Mental Status: Mental status NL, Mood NL Medications Current Medications Medications Dose Ordered Sig/Leonard Route Start Time Stop Time Status Last Admin Dose Admin Nitroglycerin 0.4 mg Q5MINP PRN SL 04/04/24 20:00 Morphine Sulfate 2 mg Q30M PRN IV 04/04/24 20:00 Atorvastatin Calcium 40 mg HS PO 04/04/24 22:00 04/05/24 20:54 40 MG Albuterol 2.5 mg Q6HPRN PRN NEB 04/04/24 20:30 Cancel Apixaban 5 mg BID PO 04/04/24 22:00 04/06/24 10:13 5 MG Metoprolol Succinate 25 mg DAILY PO 04/05/24 10:00 04/06/24 10:15 25 MG Aspirin 81 mg DAILY PO 04/05/24 10:00 04/06/24 10:13 81 MG Amlodipine Besylate 5 mg DAILY PO 04/05/24 10:00 04/06/24 10:13 5 MG Lisinopril 20 mg DAILY PO 04/05/24 10:00 04/06/24 10:12 20 MG Furosemide 20 mg BIDD IV 04/05/24 06:00 04/06/24 05:41 20 MG Ondansetron HCl 4 mg Q4HP PRN IV 04/04/24 20:30 Acetaminophen 650 mg Q6HP PRN PO 04/04/24 20:30 Oxycodone/ Acetaminophen 2 tab Q6HP PRN PO 04/05/24 14:15 04/06/24 10:12 2 TAB Empaglifozin 10 mg DAILY PO 04/06/24 10:00 04/06/24 10:13 10 MG Laboratory Results Laboratory Tests 04/04/24 18:38 04/05/24 07:59 Labs and/or images reviewed: Labs reviewed by me, Image(s) reviewed by me Assessment/Plan Assessment/Plan Impression: -acute on chronic systolic heart failure -acute hypoxic respiratory failure secondary to pulmonary vascular congestion -atrial fibrillation -morbid obesity -chronic pain management -primary hypertension -COPD -asthma -deconditioning -degenerative joint disease of right hip and knee Plan: Events: Patient reports that her respiratory status improved. Patient also has improved bilateral lower extremity swelling biliary -continue IV diuresis -continue goal-directed medical therapy for heart failure -continue anticoagulation with Eliquis -pain management. Change [place] to Percocet -bronchodilators p.r.n. -repeat labs and chest x-ray in a.m. Total time spent with patient discussing and formulating plan of care: 35 minutes. This medical document was created using an electronic medical record system with [email or web address] dictation system. Although this document has been carefully reviewed, there may still be some phonetic and typographical errors. These areas are purely typographical due to imperfections of the software programs, and do not reflect any compromise in the patient's medical care. Plan discussed with: Patient, Other (RN) My Orders Orders - KLAUS ZAMORANO NP Procedure Category Date Status Time Empagliflozin PHA 04/06/24 In Process (Jardiance) 10:00 Basic Metabolic Panel LAB 04/07/24 Verified 04:00 Magnesium LAB 04/07/24 Verified 04:00 Chest Portable XY 04/07/24 Verified 04:00 Pt Request For Service PT 04/06/24 Verified 14:59 Date of Service: Apr 06, 2024 Billing Provider: KLAUS ZAMORANO NP Common Visit Codes: [id number] INP/OBS CARE(HIGH) KLAUS ZAMORANO NP Apr 06, 2024 15:02
[2024-04-07] VITALS (9 sets, daily range): BP systolic 103–135; BP diastolic 56–69; PULSE 56–74; RESP 14–19; TEMP 97.5–98.4; O2SAT 94–97
--- NOTE | 2024-04-07 06:44 | DVH ---
CHEST RADIOGRAPH Indication: chf Technique: Single frontal view of the chest was obtained Comparison: XY CHEST PORTABLE on DOS: 04/04/24 FINDINGS: Lines and Tubes: None Lungs: No focal consolidation. Pleura: No effusion. No pneumothorax. Cardiomediastinal contours: Cardiomegaly. Bones: No acute osseous abnormality. IMPRESSION: 1. Cardiomegaly. No focal airspace disease.
[2024-04-07 06:47] LABS: Anion Gap 8 (5-15); Chloride 100 mmol/L (98-107); Sodium 140 mmol/L (136-145)
[2024-04-07 06:48] LABS: Calcium 9.7 mg/dL (8.7-10.4)
[2024-04-07 06:53] LABS: BUN/Creatinine Ratio 17.6 (10.0-20.0); Blood Urea Nitrogen 15 mg/dL (9-23); Carbon Dioxide 32 mmol/L (20-31); Glucose 100 mg/dL (74-106); Magnesium 1.2 mg/dL (1.6-2.6); Potassium 3.1 mmol/L (3.5-5.1)
--- NOTE | 2024-04-07 11:24 | DVHPN2 ---
Subjective Reports that her swelling has improved with her legs. Reviewed: Care Plan, H&P, Labs, Medications Changes from previous H/P or p: No Changes General: Per HPI Objective Vitals Vital Signs Date Time Temp Pulse Resp B/P (MAP) Pulse Ox O2 Delivery O2 Flow Rate FiO2 04/07/24 09:00 97.5 63 14 118/60 (79) 97 97.5 04/06/24 20:00 Nasal Cannula* 5 40 Intake/Output Intake and Output 04/07/24 07:00 Intake Total 1840 ml Output Total 3675 ml Balance -1835 ml Intake Oral 1840 ml Output Urine Total 3675 ml # Bowel Movements 1 General Appearance: Alert, Oriented X3, Cooperative, No acute distress, mild distress HEENT: Atraumatic, PERRLA Lungs: Clear to auscultation, Normal air movement Cardiovascular: Normal S1, Normal S2, Other (Atrial fibrillation) Genitourinary: No Apparent Abnormalities (Hutchinson catheterization) Musculoskeletal: Normal sensory function, Normal motor function Extremities: Other (Plus three pitting edema to lower extremity) Psych/Mental Status: Mental status NL, Mood NL Medications Current Medications Medications Dose Ordered Sig/Leonard Route Start Time Stop Time Status Last Admin Dose Admin Nitroglycerin 0.4 mg Q5MINP PRN SL 04/04/24 20:00 Morphine Sulfate 2 mg Q30M PRN IV 04/04/24 20:00 Atorvastatin Calcium 40 mg HS PO 04/04/24 22:00 04/06/24 21:27 40 MG Albuterol 2.5 mg Q6HPRN PRN NEB 04/04/24 20:30 Cancel Apixaban 5 mg BID PO 04/04/24 22:00 04/06/24 21:27 5 MG Metoprolol Succinate 25 mg DAILY PO 04/05/24 10:00 04/06/24 10:15 25 MG Aspirin 81 mg DAILY PO 04/05/24 10:00 04/06/24 10:13 81 MG Amlodipine Besylate 5 mg DAILY PO 04/05/24 10:00 04/06/24 10:13 5 MG Lisinopril 20 mg DAILY PO 04/05/24 10:00 04/06/24 10:12 20 MG Furosemide 20 mg BIDD IV 04/05/24 06:00 04/07/24 06:11 20 MG Ondansetron HCl 4 mg Q4HP PRN IV 04/04/24 20:30 Acetaminophen 650 mg Q6HP PRN PO 04/04/24 20:30 Oxycodone/ Acetaminophen 2 tab Q6HP PRN PO 04/05/24 14:15 04/07/24 06:06 2 TAB Empaglifozin 10 mg DAILY PO 04/06/24 10:00 04/06/24 10:13 10 MG Magnesium Sulfate/ Dextrose 100 ml @ 100 mls/hr Q1HR IV 04/07/24 10:00 04/07/24 11:59 Laboratory Results Laboratory Tests 04/04/24 18:38 04/07/24 06:05 Chemistry Test 04/07/24 06:05 Calcium Level 9.7 mg/dL (8.7-10.4) Magnesium Level 1.2 mg/dL (1.6-2.6) L Labs and/or images reviewed: Labs reviewed by me, Image(s) reviewed by me Assessment/Plan Assessment/Plan Impression: -acute on chronic systolic heart failure -acute hypoxic respiratory failure secondary to pulmonary vascular congestion -atrial fibrillation -morbid obesity -chronic pain management -primary hypertension -COPD -asthma -deconditioning -degenerative joint disease of right hip and knee -hypomagnesemia -hypokalemia Plan: Events: Electrolyte replacement -PT consultation -continue IV diuresis -continue goal-directed medical therapy for heart failure -continue anticoagulation with Eliquis -pain management. Change [place] to Percocet -bronchodilators p.r.n. -assess for discharge planning in am with home health services and physical therapy Total time spent with patient discussing and formulating plan of care: 35 minutes. This medical document was created using an electronic medical record system with [employer] dictation system. Although this document has been carefully reviewed, there may still be some phonetic and typographical errors. These areas are purely typographical due to imperfections of the software programs, and do not reflect any compromise in the patient's medical care. 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
[2024-04-07] MEDS: POTASSIUM EFFERVESENT TAB 25 MEQ PO ONE (11:31)
[2024-04-07] MEDS: MAGNESIUM SULFATE 1GM/100ML 100 ML IV SCH (12:12)
[2024-04-08] VITALS (7 sets, daily range): BP systolic 107–132; BP diastolic 53–78; PULSE 18–131; RESP 14–18; TEMP 97.8–98.3; O2SAT 95–98
--- NOTE | 2024-04-08 12:52 | DVHPN2 ---
Reviewed: Care Plan, H&P, Labs, Medications Changes from previous H/P or p: No Changes General: Per HPI Objective Vitals Vital Signs Date Time Temp Pulse Resp B/P (MAP) Pulse Ox O2 Delivery O2 Flow Rate FiO2 04/08/24 08:59 25 132/78 04/08/24 08:32 97.8 18 98 97.8 04/08/24 08:00 Nasal Cannula* 5 40 Intake/Output Intake and Output 04/08/24 07:00 Intake Total 1287 ml Output Total 2250 ml Balance -963 ml Intake Oral 1087 ml IV Total 200 ml Output Urine Total 2250 ml # Bowel Movements 2 General Appearance: Alert, Oriented X3, Cooperative, No acute distress, mild distress HEENT: Atraumatic, PERRLA Lungs: Clear to auscultation, Normal air movement Cardiovascular: Normal S1, Normal S2, Other (Atrial fibrillation) Genitourinary: No Apparent Abnormalities (Hutchinson catheterization) Musculoskeletal: Normal sensory function, Normal motor function Extremities: Other (Plus three pitting edema to lower extremity) Psych/Mental Status: Mental status NL, Mood NL Medications Current Medications Medications Dose Ordered Sig/Leonard Route Start Time Stop Time Status Last Admin Dose Admin Nitroglycerin 0.4 mg Q5MINP PRN SL 04/04/24 20:00 Morphine Sulfate 2 mg Q30M PRN IV 04/04/24 20:00 Atorvastatin Calcium 40 mg HS PO 04/04/24 22:00 04/07/24 22:26 40 MG Albuterol 2.5 mg Q6HPRN PRN NEB 04/04/24 20:30 Cancel Apixaban 5 mg BID PO 04/04/24 22:00 04/08/24 08:57 5 MG Metoprolol Succinate 25 mg DAILY PO 04/05/24 10:00 04/08/24 08:59 25 MG Aspirin 81 mg DAILY PO 04/05/24 10:00 04/08/24 08:58 81 MG Amlodipine Besylate 5 mg DAILY PO 04/05/24 10:00 04/08/24 08:58 5 MG Lisinopril 20 mg DAILY PO 04/05/24 10:00 04/08/24 08:57 20 MG Furosemide 20 mg BIDD IV 04/05/24 06:00 04/07/24 18:23 20 MG Ondansetron HCl 4 mg Q4HP PRN IV 04/04/24 20:30 Acetaminophen 650 mg Q6HP PRN PO 04/04/24 20:30 Oxycodone/ Acetaminophen 2 tab Q6HP PRN PO 04/05/24 14:15 04/08/24 08:57 2 TAB Empaglifozin 10 mg DAILY PO 04/06/24 10:00 04/08/24 08:58 10 MG Laboratory Results Laboratory Tests 04/04/24 18:38 04/07/24 06:05 Labs and/or images reviewed: Labs reviewed by me, Image(s) reviewed by me Assessment/Plan Assessment/Plan 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
[2024-04-08] MEDS: POTASSIUM CHL 20 Meq TABLET PO ONE (13:45)
[2024-04-09] VITALS (10 sets, daily range): BP systolic 102–132; BP diastolic 52–89; PULSE 58–81; RESP 17–18; TEMP 97.4–98; O2SAT 95–99
[2024-04-09 09:48] LABS: Basophils # (auto) 0.1 10 ^3/uL (0-0.2); Basophils % (auto) 0.6 % (0.0-2.0); Eosinophils # (auto) 0.5 10 ^3/uL (0-0.8); Eosinophils % (auto) 5.9 % (0.0-7.0); Hematocrit 47.9 % (36.0-46.0); Hemoglobin 15.6 g/dL (12.2-16.2); Lymphocytes # (auto) 1.5 10 ^3/uL (0.4-5.4); Lymphocytes % (auto) 16.3 % (10.0-50.0); Mean Corpuscular Hemoglobin 32.1 pg (28.0-32.0); Mean Corpuscular Hgb Conc. 32.5 g/dL (32.0-36.0); Mean Corpuscular Volume 98.6 fL (80.0-100.0); Monocytes # (auto) 0.5 10 ^3/uL (0-1.3); Monocytes % (auto) 4.9 % (0.0-12.0); Neutrophils # (auto) 6.6 10 ^3/uL (1.6-8.6); Neutrophils % (auto) 72.3 % (37.0-80.0); Nucleated Red Blood Cells % 0.1 %; Platelet Count (auto) 213 10^3/uL (140-450); Red Blood Cells 4.85 10^6/uL (4.0-5.20); Red Cell Distribution Width 19.8 % (11.8-14.3); White Blood Cell 9.2 10^3/uL (4.4-10.8)
[2024-04-09 09:59] LABS: Alanine Aminotransferase 15 U/L (7-40); Alkaline Phosphatase 93 U/L (46-116); Anion Gap 9 (5-15); Aspartate Aminotransferase 29 U/L (13-40); Blood Urea Nitrogen 15 mg/dL (9-23); Calcium 10.1 mg/dL (8.7-10.4); Carbon Dioxide 30 mmol/L (20-31); Chloride 100 mmol/L (98-107); Potassium 3.8 mmol/L (3.5-5.1); Sodium 139 mmol/L (136-145)
[2024-04-09 10:00] LABS: BUN/Creatinine Ratio 16.1 (10.0-20.0); Bilirubin, Total 0.9 mg/dL (0.2-1.0); Total Protein 7.2 g/dL (5.7-8.2)
[2024-04-09 10:09] LABS: Glucose 156 mg/dL (74-106)
--- NOTE | 2024-04-09 12:53 | DVHPN2 ---
Reviewed: Care Plan, H&P, Labs, Medications Changes from previous H/P or p: No Changes General: Per HPI Objective Vitals Vital Signs Date Time Temp Pulse Resp B/P (MAP) Pulse Ox O2 Delivery O2 Flow Rate FiO2 04/09/24 09:00 116/81 04/09/24 08:59 66 04/09/24 08:57 97.9 18 96 97.9 04/09/24 07:36 Nasal Cannula* 5 40 Intake/Output Intake and Output 04/09/24 07:00 Intake Total 854 ml Output Total 400 ml Balance 454 ml Intake Oral 854 ml Output Urine Total 400 ml # Voids 1 General Appearance: Alert, Oriented X3, Cooperative, No acute distress, mild distress HEENT: Atraumatic, PERRLA Lungs: Clear to auscultation, Normal air movement Cardiovascular: Normal S1, Normal S2, Other (Atrial fibrillation) Genitourinary: No Apparent Abnormalities (Hutchinson catheterization) Musculoskeletal: Normal sensory function, Normal motor function Extremities: Other (Plus three pitting edema to lower extremity) Psych/Mental Status: Mental status NL, Mood NL Medications Current Medications Medications Dose Ordered Sig/Leonard Route Start Time Stop Time Status Last Admin Dose Admin Nitroglycerin 0.4 mg Q5MINP PRN SL 04/04/24 20:00 Morphine Sulfate 2 mg Q30M PRN IV 04/04/24 20:00 Atorvastatin Calcium 40 mg HS PO 04/04/24 22:00 04/08/24 21:19 40 MG Albuterol 2.5 mg Q6HPRN PRN NEB 04/04/24 20:30 Cancel Apixaban 5 mg BID PO 04/04/24 22:00 04/09/24 09:00 5 MG Metoprolol Succinate 25 mg DAILY PO 04/05/24 10:00 04/09/24 08:59 25 MG Aspirin 81 mg DAILY PO 04/05/24 10:00 04/09/24 08:59 81 MG Amlodipine Besylate 5 mg DAILY PO 04/05/24 10:00 04/09/24 08:59 5 MG Lisinopril 20 mg DAILY PO 04/05/24 10:00 04/09/24 09:00 20 MG Furosemide 20 mg BIDD IV 04/05/24 06:00 04/08/24 17:18 20 MG Ondansetron HCl 4 mg Q4HP PRN IV 04/04/24 20:30 Acetaminophen 650 mg Q6HP PRN PO 04/04/24 20:30 Oxycodone/ Acetaminophen 2 tab Q6HP PRN PO 04/05/24 14:15 04/09/24 10:41 2 TAB Empaglifozin 10 mg DAILY PO 04/06/24 10:00 04/09/24 09:00 10 MG Laboratory Results Laboratory Tests 04/09/24 08:40 Chemistry Test 04/09/24 08:40 Albumin 4.0 g/dL (3.2-4.8) Calcium Level 10.1 mg/dL (8.7-10.4) Total Protein 7.2 g/dL (5.7-8.2) LFT Test 04/09/24 08:40 Alanine Aminotransferase (ALT) 15 U/L (7-40) Alkaline Phosphatase 93 U/L (46-116) Aspartate Amino Transferase (AST) 29 U/L (13-40) Total Bilirubin 0.9 mg/dL (0.2-1.0) Labs and/or images reviewed: Labs reviewed by me, Image(s) reviewed by me Assessment/Plan Assessment/Plan 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
[2024-04-09] MEDS: SODIUM CHLORIDE 0.9% 1,000 ML IV SCH (13:00)
[2024-04-10 01:00] VITALS: BP 113/70; PULSE 63; RESP 18; TEMP 97.5; O2SAT 97
[2024-04-10 05:00] VITALS: BP 111/61; PULSE 58; RESP 17; TEMP 98.3; O2SAT 98
[2024-04-10 08:00] VITALS: PULSE 68
[2024-04-10 09:00] VITALS: BP 116/71; PULSE 61; RESP 22; TEMP 98.1; O2SAT 97
[2024-04-10] MEDS ORDERED: EMPA1TAB PO (10:27)
[2024-04-10] MEDS ORDERED: OXYC325T14 PO (10:27)
--- NOTE | 2024-04-10 10:34 | DVHDS2 ---
Discharge Summary Date of Admission Apr 04, 2024 at 20:00 Date of Discharge: Apr 10, 2024 Admitting Diagnosis Acute on chronic decompensated diastolic heart failure Labs/Diagnostic Data: Laboratory Results Test 04/09/24 08:40 04/07/24 06:05 04/04/24 19:44 04/04/24 18:38 White Blood Count 9.2 10^3/uL (4.4-10.8) Red Blood Count 4.85 10^6/uL (4.0-5.20) Hemoglobin 15.6 g/dL (12.2-16.2) Hematocrit 47.9 % (36.0-46.0) Mean Corpuscular Volume 98.6 fL (80.0-100.0) Mean Corpuscular Hemoglobin 32.1 pg (28.0-32.0) Mean Corpuscular Hemoglobin Concent 32.5 g/dL (32.0-36.0) Red Cell Distribution Width 19.8 % (11.8-14.3) Platelet Count 213 10^3/uL (140-450) Mean Platelet Volume 8.7 fL (6.9-10.8) Neutrophils (%) (Auto) 72.3 % (37.0-80.0) Lymphocytes (%) (Auto) 16.3 % (10.0-50.0) Monocytes (%) (Auto) 4.9 % (0.0-12.0) Eosinophils (%) (Auto) 5.9 % (0.0-7.0) Basophils (%) (Auto) 0.6 % (0.0-2.0) Neutrophils # (Auto) 6.6 10 ^3/uL (1.6-8.6) Lymphocytes # (Auto) 1.5 10 ^3/uL (0.4-5.4) Monocytes # (Auto) 0.5 10 ^3/uL (0-1.3) Eosinophils # (Auto) 0.5 10 ^3/uL (0-0.8) Basophils # (Auto) 0.1 10 ^3/uL (0-0.2) Nucleated Red Blood Cells 0.1 % Sodium Level 139 mmol/L (136-145) Potassium Level 3.8 mmol/L (3.5-5.1) Chloride Level 100 mmol/L (98-107) Carbon Dioxide Level 30 mmol/L (20-31) Anion Gap 9 (5-15) Blood Urea Nitrogen 15 mg/dL (9-23) Creatinine 0.93 mg/dL (0.550-1.02) Glomerular Filtration Rate Calc 63 mL/min (>90) BUN/Creatinine Ratio 16.1 (10.0-20.0) Serum Glucose 156 mg/dL (74-106) Calcium Level 10.1 mg/dL (8.7-10.4) Total Bilirubin 0.9 mg/dL (0.2-1.0) Aspartate Amino Transferase (AST) 29 U/L (13-40) Alanine Aminotransferase (ALT) 15 U/L (7-40) Alkaline Phosphatase 93 U/L (46-116) Total Protein 7.2 g/dL (5.7-8.2) Albumin 4.0 g/dL (3.2-4.8) Magnesium Level 1.2 mg/dL (1.6-2.6) Troponin I High Sensitivity 6 ng/L (</=34) B-Type Natriuretic Peptide 855.70 pg/mL (0-100) Other Laboratory Tests 04/09/24 08:40 Brief Hx & Hospital Course: History of Present Illness 79-year-old female presents for evaluation of shortness for breath. Patient reports a one-week history of worsening shortness for breath with bilateral lower extremity swelling. She reports mild chest pressure. Denies cough or fever. No other acute complaint reported. Course of hospitalization: Patient was given IV Lasix with improvement with her lower extremities. Reviewing the patient's goal-directed medical therapy for heart failure, patient had Jardiance 10 mg p.o. daily added to her regimen. The patient's swelling has improved. She has been ambulating with physical therapy. Patient will have her Hutchinson catheter removed today and we will be discharged home back with home health services. Patient did have physical therapy evaluation which will be referred to home health services to be continued as an outpatient. The patient was agreeable with discharge plan. All questions answered. Physical examination General: Alert and Oriented x3. No acute distress. Well-nourished. Obese Eyes: EOMI. Anicteric. HENT: Moist mucous membranes. Lungs: Clear to auscultation bilaterally. No accessory muscle use. Cardiovascular: Regular rate and rhythm. No murmur. No JVD. Abdomen: Soft, non-tender and non-distended. No palpable masses. Extremities: No edema. Non-tender. Skin: No rashes or lesions. Warm. Neurologic: No focal neurological deficits. CN II-XII grossly intact, but not individually tested. Psychiatric: Cooperative. Appropriate mood and affect. Total time spent with patient discussing and formulating plan of care: 35 minutes. This medical document was created using an electronic medical record system with [employer] dictation system. Although this document has been carefully reviewed, there may still be some phonetic and typographical errors. These areas are purely typographical due to imperfections of the software programs, and do not reflect any compromise in the patient's medical care. Condition at Discharge: Poor Final Diagnosis/Problems List Acute on chronic decompensated diastolic HF Secondary Diagnosis: -acute on chronic systolic heart failure -acute hypoxic respiratory failure secondary to pulmonary vascular congestion -atrial fibrillation -morbid obesity -chronic pain management -primary hypertension -COPD -asthma -deconditioning -degenerative joint disease of right hip and knee -hypomagnesemia -hypokalemia Discharge Disposition: Home with Health Services Discharge Instruct/Medications Diet: Consistent carbohydrate, Cardiac 2g Na,low cholest Activity: No Restrictions, As Tolerated Follow Up/Referral: PCP in 1-2 weeks Medications: Lasix 40mg po daily Jardiace 10mg po daily Continue pain management per outpatient referral 36 Discharge Statement: "Patient was advised to return to the ER or call 911 if any headaches, dizziness, shortness of breath, chest pain, abdominal pain, bleeding, fevers, or worsening of medical condition. Patient was counseled about treatment plan, medications, possible side effects, patientverbalized understanding. All questions were answered to the best of my ability. This discharge took greater then 30 minutes in planning, reviewing documentation, counseling the patient, and discussing with other team members." ASSESSMENT ASSESSMENT Assessment Acute on chronic decompensated diastolic HF Date of Service: Apr 10, 2024 Billing Provider: KLAUS ZAMORANO NP Common Visit Codes: [id number] DISCH DAY >30min KLAUS ZAMORANO NP Apr 10, 2024 10:34
[2024-04-10 13:00] VITALS: BP 115/64; PULSE 71; RESP 18; TEMP 97.8; O2SAT 95
== END 2024-04-10 19:34 | disposition home health service (06) | DRG 291 ==
LOC: ER 17:44 → TELE 20:00 → TELE-WESTW 22:57
PROVIDERS: ADMIT Nurse Practitioner; ATTEND Nurse Practitioner Acute Care
DX: I13.0 Hypertensive heart and chronic kidney disease with heart failure and stage 1 through stage 4 chronic kidney disease, or unspecified chronic kidney disease (principal); I50.43 Acute on chronic combined systolic (congestive) and diastolic (congestive) heart failure; J96.01 Acute respiratory failure with hypoxia; F03.90 Unspecified dementia, unspecified severity, without behavioral disturbance, psychotic disturbance, mood disturbance, and anxiety; E66.01 Morbid (severe) obesity due to excess calories; M16.11 Unilateral primary osteoarthritis, right hip; M17.11 Unilateral primary osteoarthritis, right knee; E83.42 Hypomagnesemia; E87.6 Hypokalemia; N18.9 Chronic kidney disease, unspecified; J44.89 Other specified chronic obstructive pulmonary disease; I48.91 Unspecified atrial fibrillation; Z90.710 Acquired absence of both cervix and uterus; Z90.49 Acquired absence of other specified parts of digestive tract; Z91.048 Other nonmedicinal substance allergy status; Z79.84 Long term (current) use of oral hypoglycemic drugs; Z68.38 Body mass index [BMI] 38.0-38.9, adult
CPT/HCPCS: 36415; 71045; 80048; 80053; 83735; 83880; 84484; 85025; 93005; 97110; 97116; 97163; 97530; 99291; G0378

== ENCOUNTER 2024-05-09 16:20 | Inpatient (IN) | payer OTHER, MEDICARE ==
[~2024-05-09] VITALS: Ht 149.9 cm; Wt 80.2 kg
[~2024-05-09 16:20] MED LIST changes: -DOXY100C79 PO; +EMPA1TAB PO; -FURO40TA4 PO
--- NOTE | 2024-05-09 16:26 | ED.PDOC ---
SOB-HPI HPI Comments 79 year old female BECKY presents to the ED with chief complaint of SOB. Patient reports that she has been experiencing SOB with associated cough, body aches, chills, and bilateral leg swelling for the past few weeks. Patient relays that she was admitted to the ED last year in March, however, 4-5 days after her discharge on 04/10/24, she started to experience her symptoms. EMS states patient is normally on 4L of O2 via NC due to COPD and has history of CHF and A- Fib. Patient denies any chest pain, fever, dizziness, headache, N/V, or nasal congestion. Time Seen by MD: 16:22 Primary Care Provider: RICCO Reviewed notes: Nurses Notes, Box Office Agent Notes, Medications, Allergies Information Source: Patient, Emergency Med Personnel Mode of Arrival: EMS Severity: Moderate Timing: Weeks Duration: Since onset Context: At Rest PE Risk Factors: None History of: COPD, CHF Prehospital treatment: Oxygen Modifying Factors: Nothing Associated Signs and Symptoms: Cough If cough with SOB: Non-Productive Past Medical History PAST MEDICAL HISTORY: AFIB, Asthma, Cancer, CHF, CKF, Dementia, HTN Surgical History: Appendectomy, Cholecystectomy, Hysterectomy, Tonsillectomy OFFBEARER SEWER PIPE History: Denies all OFFBEARER SEWER PIPE Hx Family History Family History: No family hx of Cancer, No family hx of DM, No family hx of HTN, No family hx ofKidney waqas, No family hx of Liver waqas, No family hx of Lung waqas, No family hx of Stroke, Family hx of heart waqas Social History Smoker: Non-Smoker, Quit Greater Than 1 Year Alcohol: Denies ETOH Use Drugs: Denies Drug Use Lives In: Home Constitutional: reports: chills, others (Body aches); denies: diaphoresis, fatigue, fever, malaise, sweats, weakness EENTM: denies: blurred vision, double vision, ear bleeding, ear discharge, ear drainage, ear pain, ear ringing, eye pain, eye redness, hearing loss, mouth pain, mouth swelling, nasal discharge, nose bleeding, nose congestion, nose j carlos n, photophobia, tearing, throat pain, throat swelling, voice changes, others Respiratory: reports: cough, shortness of breath; denies: hemoptysis, orthopnea, SOB at rest, SOB with excertion, stridor, wheezing, others Cardiovascular: reports: edema; denies: chest pain, dizzy spells, diaphoresis, Dyspnea on exertion, irregular heart beat, left arm pain, lightheadedness, palpitations, PND, syncope, others Gastrointestinal: denies: abdomen distended, abdominal pain, blood streaked bowels, constipated, diarrhea, dysphagia, difficulty swallowing, hematemesis, melena, nausea, poor appetite, poor fluid intake, rectal bleeding, rectal pain, vomiting, others Genitourinary: denies: abnormal vagina bleeding, burning, dyspareunia, dysuria, flank pain, frequency, hematuria, incontinence, pain, , vagina discharge, urgency, others Neurological: denies: dizziness, fainting, headache, left sided numbness, left sided weakness, numbness, paresthesia, pre-existing deficit, right sided numbness, right sided weakness, seizure, speech problems, tingling, tremors, weakness, others Musculoskeletal: denies: back pain, gout, joint pain, joint swelling, muscle pain, muscle stiffness, neck pain, others Integumetry: denies: bruises, change in color, change in hair/nails, dryness, laceration, lesions, lumps, rash, wounds, others Allergic/Immunocompromised: denies: Difficulty Healing, Frequent Infections, Hives, Itching, others Hematologic/Lymphatic: denies: anemia, blood clots, easy bleeding, easy bruising, swollen glands, others Endocrine: denies: excessive hunger, excessive sweating, excessive thirst, excessive urination, flushing, intolerance to cold, intolerance to heat, unexplained weight gain, unexplained weight loss, others Psychiatric: denies: anxiety, bipolar disorder, depression, hopeless, panic disorder, schizophrenia, sleepless, suicidal, others All Other Systems: Reviewed and Negative Physical Exam General Appearance: Moderate Distress, Normal HEENT: Normal ENT Inspection, PERRL/EOMI Neck: Full Range of Motion, Non-Tender, Normal, Normal Inspection Respiratory: Accessory Muscle Use, Chest Non-Tender, Wheezing Cardiovascular: No Edema, No JVD, No Murmur, No Gallop, Normal Peripheral Pulses, Regular Rate/Rhythm Breast Exam: Deferred Gastrointestinal: No Organomegaly, Non Tender, No Pulsatile Mass, Normal Bowel Sounds, Soft Genitalia: Deferred Pelvic: Deferred Rectal: Deferred Extremities: No calf tenderness, Normal capillary refill, Normal inspection, Normal range of motion, Non-tender, No pedal edema Musculoskeletal : Apperance: Normal Neurologic: Alert, memorial adviser II-XII nml as Tested, No Motor Deficits, Normal Affect, Normal Mood, No Sensory Deficits Cerebellar Function: NOT DONE Reflexes: NOT DONE Skin: Dry, Normal Color, Warm Peripheral Pulses: 3+ Radial (R), 3+ Radial (L) Lymphatic: No Adenopathy Was a procedure done? Was a procedure done?: No Differential Dx Differential Diagnosis: Anxiety, Asthma, Bronchitis, CHF, COPD, Pneumonia X-Ray, Labs, Meds, VS Patient alert. Complaining of shortness a breath. She does not have leg swelling per se. Vitals stable. Answering questions. Using accessory muscles. Possible pneumonia. Was given Rocephin. Was given azithromycin. Was given Lasix. Reviewed her previous visit. Explained to the patient. Continue cardiac monitoring. EKG reviewed does show premature ventricular contraction. Time of 1ST Reevaluation: 17:22 Reevaluation 1ST: Unchanged Patient Education/Counseling: Diagnosis, Treatment Family Education/Counseling: No Family Present Additional Information I reviewed the following notes from patient's past medical encounters: 04/04/24 for CHF exacerbation The following tests were ordered, and results were reviewed by me: Chest XR Additional Information was gathered from interviewing the following independent historians: EMS I reviewed and agreed with the following test results read by other providers: Chest XR I discussed treatment and results with medical personnel. Departure 1 Departure Time of Disposition: 16:29 Impression: Primary Impression: CHF (congestive heart failure) Qualified Codes: I50.43 - Acute on chronic combined systolic (congestive) and diastolic (congestive) heart failure Additional Impression: Atrial fibrillation Qualified Codes: I48.0 - Paroxysmal atrial fibrillation Disposition: ADMITTED INPATIENT Admit to: Med Surg Condition: Guarded Critical Care Note Critical Care Time?: Yes (45 min-critical care time only) Stability Stability form required: No Heart Score Heart Score: Heart Score Response (Comments) Value History N/A 0 EKG N/A 0 Age N/A 0 Risk Factors N/A 0 Troponin N/A 0 Total 0 I personally scribed for JONAH AREVALO MD ([email or web address]) on 05/09/24 at 16:26. Electronically submitted by Herminio Wells ([email or web address]). JONAH AREVALO MD May 09, 2024 16:26
[2024-05-09] MEDS: AZITHROMYCIN 500MG/ 250ML 250 ML IV ONE (16:30)
--- NOTE | 2024-05-09 16:46 | DVH ---
CHEST RADIOGRAPH Indication: sob Technique: Single frontal view of the chest was obtained Comparison: XY CHEST PORTABLE on DOS: 04/07/24, XY CHEST PORTABLE on DOS: 04/04/24, XY CHEST XRAY 1 V IEW on DOS: 02/02/24 FINDINGS: Lines and Tubes: None Lungs: No focal consolidation. Pleura: No effusion. No pneumothorax. Cardiomediastinal contours: Stable cardiomegaly Bones: No acute osseous abnormality. IMPRESSION: 1. Stable cardiomegaly. 2. No acute cardiopulmonary disease.
--- NOTE | 2024-05-09 17:08 | ECG ---
[facility] Test Date: 2024-05-09 Test Time: 16:31:43 Pat Name: SHILA LERNER Department: ER Room: 0292 Gender: F Senior Controller: VENTURA : 1945 Requested By: JONAH AREVALO Order Number: [id number] Reading MD: Eriberto Julio Measurements Intervals Cotton Rate: 98 P: 0 AZ: 0 QRS: -23 QRSD: 162 T: -73 QT: 385 QTc: 492 Interpretive Statements Atrial fibrillation Multiple ventricular premature complexes Right bundle branch block Abnormal T, consider ischemia, lateral leads Electronically Signed On 05-11-2024 16:39:58 PST by Eriberto Julio Please click the below link to view image of tracing.
[2024-05-09] MEDS: cefTRIAXone 1GM/50ML D5W 50 ML IV ONE (17:18)
[2024-05-09] MEDS: methylPREDNISolone SOD SUCC 125 MG/2 ML VL IV ONE (17:18)
[2024-05-09] MEDS: FUROSEMIDE 40 MG/4 ML VIAL IV ONE (17:24)
[2024-05-09 17:29] LABS: Basophils # (auto) 0 10 ^3/uL (0-0.2); Basophils % (auto) 0.3 % (0.0-2.0); Eosinophils # (auto) 0.4 10 ^3/uL (0-0.8); Eosinophils % (auto) 4.8 % (0.0-7.0); Hemoglobin 13.6 g/dL (12.2-16.2); Lymphocytes # (auto) 1.2 10 ^3/uL (0.4-5.4); Lymphocytes % (auto) 16.1 % (10.0-50.0); Mean Corpuscular Hgb Conc. 33.2 g/dL (32.0-36.0); Mean Corpuscular Volume 99.4 fL (80.0-100.0); Monocytes # (auto) 0.4 10 ^3/uL (0-1.3); Neutrophils # (auto) 5.4 10 ^3/uL (1.6-8.6); Neutrophils % (auto) 72.8 % (37.0-80.0); Platelet Count (auto) 235 10^3/uL (140-450); Red Blood Cells 4.13 10^6/uL (4.0-5.20); Red Cell Distribution Width 18.9 % (11.8-14.3); White Blood Cell 7.4 10^3/uL (4.4-10.8)
[2024-05-09 17:44] LABS: Potassium 3.6 mmol/L (3.5-5.1)
[2024-05-09 17:45] LABS: Anion Gap 8 (5-15); Calcium 10.3 mg/dL (8.7-10.4); Carbon Dioxide 29 mmol/L (20-31)
[2024-05-09 17:50] LABS: BUN/Creatinine Ratio 16.3 (10.0-20.0); Blood Urea Nitrogen 13 mg/dL (9-23); Glucose 99 mg/dL (74-106)
[2024-05-09 18:31] LABS: Chloride 108 mmol/L (98-107); Sodium 145 mmol/L (136-145)
[2024-05-09] MEDS: OXYCODONE W/ ACETAMINOPHEN 5/325MG TABLET PO ONE ×2 (20:28→21:43)
[2024-05-09] MEDS ORDERED: ACETAMINOPHEN 325 MG TAB PO PRN (21:15)
[2024-05-09 21:21] LABS: Urine Bacteria None Seen /hpf (None Seen)
[2024-05-09] MEDS: APIXABAN 5 MG TAB PO SCH (21:46)
[2024-05-09] MEDS: ATORVASTATIN 20 MG TAB PO SCH (21:46)
[2024-05-09 21:58] LABS: Urine Blood Negative /uL (Negative); Urine Clarity Clear (Clear); Urine Color Colorless (Yellow); Urine Hyaline Cast FEW /lpf (0 - 2); Urine Protein, UAD Negative (Negative); Urine Specific Gravity 1.006 (1.001-1.035); Urine Squamous Epithelial Cell None Seen /hpf (<5); Urine Urobilinogen Normal (Negative); Urine WBC < 1 /HPF (0-5)
--- NOTE | 2024-05-09 22:18 | DVHHP2 ---
History of Present Illness Reason for Visit: Shortness of breath History of Present Illness 79-year-old female with a history of COPD and congestive heart failure presents with worsening shortness for breath. Patient is currently using 4 L of nasal cannula oxygen at home. She reports chest pressure with bilateral lower extrem ity edema. Denies cough or fever. Denies any other acute complaints at the moment. Past Medical History Asthma, AFib, congestive heart failure, chronic kidney disease and hypertension Past Surgical History Cholecystectomy, hysterectomy, tonsillectomy and appendectomy Family History Noncontributory Smoke: No ALCOHOL: none Drugs: None Lives: with Family Review of Systems Review of Systems Review of systems are currently negative otherwise addressed in HPI. Allergies: Coded Allergies: Diphenhydramine (Verified Allergy, Unknown, 09/21/22) Uncoded Allergies: TAPE (Allergy, Unknown, 09/21/22) Medications Current Medications Medications Dose Ordered Sig/Leonard Route Start Time Stop Time Status Last Admin Dose Admin Apixaban 5 mg BID PO 05/09/24 22:00 05/09/24 21:46 5 MG Allopurinol 300 mg DAILY PO 05/10/24 10:00 Aspirin 81 mg DAILY PO 05/10/24 10:00 Atorvastatin Calcium 40 mg HS PO 05/09/24 22:00 05/09/24 21:46 40 MG Furosemide 20 mg DAILY IV 05/10/24 10:00 Empaglifozin 10 mg DAILY PO 05/10/24 10:00 Lisinopril 20 mg DAILY PO 05/10/24 10:00 Metoprolol Succinate 25 mg DAILY PO 05/10/24 10:00 Ondansetron HCl 4 mg Q4HP PRN IV 05/09/24 21:15 Acetaminophen 650 mg Q6HP PRN PO 05/09/24 21:15 Oxycodone/ Acetaminophen 2 tab Q6HP PRN PO 05/10/24 04:00 UNV Exam Vital Signs Vital Signs Date Time Temp Pulse Resp B/P (MAP) Pulse Ox O2 Delivery O2 Flow Rate FiO2 05/09/24 22:11 97 18 132/83 (99) 96 05/09/24 19:30 98.7 98.7 05/09/24 19:25 Nasal Cannula* 4 36 Exam Gen: 79-year-old female in mild distress Skin: Warm, dry, normal color and texture, no rash. HEENT: Normocephalic atraumatic, mucous membranes moist and pink. Neck: Cervical and supraclavicular nodes normal without enlargement, trachea is midline, thyroid gland is normal without masses. Pulmonary: Clear to auscultation and percussion bilaterally. Cardiac: Regular rate and rhythm. No murmur Abdomen: Soft, nontender, nondistended, bowel sounds present all 4 quadrants, no guarding, no rigidity, no organomegaly. Extremities: No cyanosis, clubbing, bilateral lower extremity edema Neuro: Cranial nerves II through XII grossly intact, normal affect and speech, no focal motor deficits. Labs/Xrays ORDERING PHYSICIAN: ROLANDO DEJESUS PROCEDURE(s): ECIDC - ECHO 2D MODE CARDIAC DOP REASON: ef ORDER NUMBER(s): [id number], ACCESSION NUMBER(s): [id number] APPROVED REPORT EXAM: LIMITED Two-dimensional and M-mode echocardiogram with Doppler and color Doppler. Blood Pressure: 123/83 mmHg INDICATION EF RISK FACTORS Obesity: Height: 4'10", Weight: 300 DIMENSIONS LVDd 5.0 (3.8-5.7cm) LA (2D) (1.9-4.0cm) Aortic Root 3.2 (2.0- 3.7cm) LVDs 3.5 (2.5-4.0cm) LA (MM) (1.9-4.0cm) Aortic Cusp Exc 1.2 (1.5- 2.0cm) EF (%) 55.0 (55-70%) Rt. Atrium (1.9-4.0cm) Asc. Aorta cm IVSd 1.1 (0.7-1.1cm) RV (D) (1.8-2.4cm) PWd 1.3 (0.7-1.1cm) Mitral Valve Mitral Mitral Stenosis E/A ratio 0.0 2D MVA cm2 Aortic Valve Aortic Valve Aortic Stenosis LVOT Diameter 1.9 (1.8-2.4cm) Doppler ZAID cm2 Pulmonic Valve V2 1.12m/s Tricuspid Valve TR Velocity 3.21m/s RVSP 56mmHg Other Information Quality : Technically Limited Rhythm : Technically limited study due to body habitus and patient position. Conclusion Normal left ventricular size and dimension. Mildly reduced left ventricular systolic function in global fashion and 45-50% %. Patient is in atrial fibrillation. Normal right ventricular size and dimension. Normal right ventricular systolic function. Normal biatrial size and dimension. The aortic valve is thickened and sclerotic Normal mitral valve structure and function. Normal tricuspid valve structure and function. Normal tricuspid valve structure and function. There is mild pulmonary valve regurgitation. There is a small pericardial effusion SIGNED BY: THELMA ALLEN MD SIGNED DATE/TIME: 02/01/24 1531 ORDERING PHYSICIAN: JONAH AREVALO MD PROCEDURE(s): CXRP - CHEST PORTABLE REASON: sob ORDER NUMBER(s): [id number], ACCESSION NUMBER(s): [id number] CHEST RADIOGRAPH Indication: sob Technique: Single frontal view of the chest was obtained Comparison: XY CHEST PORTABLE on DOS: 04/07/24, XY CHEST PORTABLE on DOS: 04/04/24, XY CHEST XRAY 1 VIEW on DOS: 02/02/24 FINDINGS: Lines and Tubes: None Lungs: No focal consolidation. Pleura: No effusion. No pneumothorax. Cardiomediastinal contours: Stable cardiomegaly Bones: No acute osseous abnormality. IMPRESSION: 1. Stable cardiomegaly. 2. No acute cardiopulmonary disease. Labs Test 05/09/24 21:01 05/09/24 17:05 Range/Units Urine Color Colorless Yellow Urine Clarity Clear Clear Urine pH 5.0 5.0-9.0 Urine Specific [place] 1.006 1.001-1.035 Urine Protein Negative Negative Urine Ketones Negative Negative Urine Blood Negative Negative /uL Urine Nitrite Negative Negative Urine Bilirubin Negative Negative Urine Urobilinogen Normal Negative mg/dL Urine Leukocyte Esterase Negative Negative /uL Urine RBC 1 0 - 4 /hpf Urine Microscopic WBC < 1 0-5 /HPF Urine Squamous Epithelial Cells None seen <5 /hpf Urine Bacteria None seen None Seen /hpf Urine Hyaline Casts Few 0 - 2 /lpf Urine Glucose 2+ H Normal mg/dL White Blood Count 7.4 4.4-10.8 10^3/uL Red Blood Count 4.13 4.0-5.20 10^6/uL Hemoglobin 13.6 12.2-16.2 g/dL Hematocrit 41.0 36.0-46.0 % Mean Corpuscular Volume 99.4 80.0-100.0 fL Mean Corpuscular Hemoglobin 33.0 H 28.0-32.0 pg Mean Corpuscular Hemoglobin Concent 33.2 32.0-36.0 g/dL Red Cell Distribution Width 18.9 H 11.8-14.3 % Platelet Count 235 140-450 10^3/uL Mean Platelet Volume 7.8 6.9-10.8 fL Neutrophils (%) (Auto) 72.8 37.0-80.0 % Lymphocytes (%) (Auto) 16.1 10.0-50.0 % Monocytes (%) (Auto) 6.0 0.0-12.0 % Eosinophils (%) (Auto) 4.8 0.0-7.0 % Basophils (%) (Auto) 0.3 0.0-2.0 % Neutrophils # (Auto) 5.4 1.6-8.6 10 ^3/uL Lymphocytes # (Auto) 1.2 0.4-5.4 10 ^3/uL Monocytes # (Auto) 0.4 0-1.3 10 ^3/uL Eosinophils # (Auto) 0.4 0-0.8 10 ^3/uL Basophils # (Auto) 0 0-0.2 10 ^3/uL Nucleated Red Blood Cells 0.0 % Sodium Level 145 136-145 mmol/L Potassium Level 3.6 3.5-5.1 mmol/L Chloride Level 108 H 98-107 mmol/L Carbon Dioxide Level 29 20-31 mmol/L Anion Gap 8 5-15 Blood Urea Nitrogen 13 9-23 mg/dL Creatinine 0.80 0.550-1.02 mg/dL Glomerular Filtration Rate Calc 75 >90 mL/min BUN/Creatinine Ratio 16.3 10.0-20.0 Serum Glucose 99 74-106 mg/dL Calcium Level 10.3 8.7-10.4 mg/dL Troponin I High Sensitivity 9 </=34 ng/L B-Type Natriuretic Peptide 1029.49 0-100 pg/mL Assessment/Plan Assessment/Plan Assessment Acute on chronic respiratory failure Acute on chronic congestive heart failure Chronic kidney disease COPD Morbid obesity Plan Admit the patient to [facility] to the hospitalist IV Lasix Resume home medications Physical therapy eval Social service consult Continue treatment per orders. Plan discussed with: Patient My Orders Orders - ROLANDO DEJESUS Procedure Category Date Status Time Apixaban (Eliquis) PHA 05/09/24 In Process 22:00 Allopurinol Tablet PHA 05/10/24 In Process (Zyloprim Tablet) 10:00 Aspirin Tablet PHA 05/10/24 In Process 10:00 Atorvastatin (Lipitor) PHA 05/09/24 In Process 22:00 Furosemide Injection PHA 05/10/24 In Process (Lasix Injection) 10:00 Empagliflozin PHA 05/10/24 In Process (Jardiance) 10:00 Lisinopril Tablet PHA 05/10/24 In Process (Zestril Tablet) 10:00 Metoprolol Xl PHA 05/10/24 In Process Succinate (Toprol Xl) 10:00 Basic Metabolic Panel LAB 05/10/24 Verified 04:00 Admit ADMIT 05/09/24 Transmitted 21:15 Ondansetron Hcl PHA 05/09/24 In Process (Zofran) 21:15 Cardiac DIET 05/10/24 Transmitted Diet-2gna,Lofat,Lochol Breakfast Condition: Stable DEBRA 05/09/24 In Process 21:15 Acetaminophen Tablet PHA 05/09/24 In Process (Tylenol Tablet) 21:15 Bedrest With Bathroom DEBRA 05/09/24 In Process Privileg 21:15 Oxycodone W/ Acet PHA 05/10/24 Logged 5/325mg Tab (Percocet 04:00 Pt Request For Service PT 05/09/24 Verified 22:12 * Vault Service Mechanic CONS 05/09/24 Verified Consult Date of Service: May 09, 2024 Billing Provider: ROLANDO DEJESUS Common Visit Codes: [id number] INP/OBS CARE (HIGH) ROLANDO DEJESUS May 09, 2024 22:18
[2024-05-10] VITALS (10 sets, daily range): BP systolic 119–141; BP diastolic 61–89; PULSE 64–113; RESP 17–20; TEMP 97.8–98.8; O2SAT 95–99
[2024-05-10] MEDS: OXYCODONE W/ ACETAMINOPHEN 5/325MG TABLET PO PRN ×2 (04:16→20:51)
[2024-05-10 07:50] LABS: Anion Gap 9 (5-15); Carbon Dioxide 29 mmol/L (20-31); Chloride 105 mmol/L (98-107); Sodium 143 mmol/L (136-145)
[2024-05-10 07:51] LABS: Calcium 10.2 mg/dL (8.7-10.4)
[2024-05-10 07:56] LABS: BUN/Creatinine Ratio 14.4 (10.0-20.0); Blood Urea Nitrogen 14 mg/dL (9-23); Glucose 183 mg/dL (74-106); Potassium 3.3 mmol/L (3.5-5.1)
[2024-05-10] MEDS: METOPROLOL SUCCINATE XL 50 MG TAB PO SCH (09:10)
[2024-05-10] MEDS: FUROSEMIDE 20 MG/2 ML VIAL IV SCH (09:10)
[2024-05-10] MEDS: ASPirin 81 mg TAB PO SCH (09:11)
[2024-05-10] MEDS: EMPAGLIFLOZIN 10 MG TAB PO SCH (09:11)
[2024-05-10] MEDS: LISINOPRIL 20 MG TAB PO SCH (09:11)
[2024-05-10] MEDS: ALLOPURINOL 100 MG TAB PO SCH (09:11)
[2024-05-10] MEDS: POTASSIUM CHL 20 Meq TABLET PO ONE ×2 (10:23→16:04)
[2024-05-10] MEDS: methylPREDNISolone SOD SUCC 40 MG/ML VL IV ONE (13:47)
[2024-05-10 15:42] LABS: Free T3 3.07 pg/mL (2.3-4.2); Free T4 (Free Thyroxine) 1.18 ng/dL (0.89-1.76)
[2024-05-10] MEDS: MAGNESIUM SULFATE 1GM/100ML 100 ML IV SCH (16:05)
[2024-05-10] MEDS ORDERED: VANCOMYCIN PER PHARMACY 0 MG IV SCH (16:15)
[2024-05-10 16:51] LABS: Base Excess 2.9 mmol/L (-2.0-3.0)
--- NOTE | 2024-05-10 16:53 | DVHPNRES ---
Progress Note Date Seen: May 10, 2024 Resident Creating Document: JHCHEN SOLANO RESIDENT Medical Necessity Reason Pt with a Central, PICC or Fol: Yes The following are medically ne: Hutchinson Catheter Subjective Review of Systems Patient is a 79-year-old female with a past medical history as described below came to the ED with a chief complaint of worsening shortness of breath and cough. Patient reports that around [place] she had diarrhea and flu-like symptoms cough, congestion, malaise following which she started to have shortness of breath and worsening cough. The cough was associated with yellowish white expectoration but the patient denied fever or chills. Patient reported to be using home oxygen at 4 liter/minute. Past medical history: Cancer, asthma, AFib, chronic kidney disease, CHF, hypertension Past Surgical History:Cholecystectomy, appendectomy, hysterectomy and tonsillectomy Social history patient lives with the denies smoking, alcohol, drug use Medications: Apixaban 5 mg b.i.d., atorvastatin 40 mg, metoprolol succinate 25 mg, Jardiance 10 mg, furosemide 20 mg, lisinopril 20 mg Review of systems Patient reports mild shortness of breath while on oxygen at 4 liters/minute reports nose is dry. Reports pain in her right hip. Patient has a Hutchinson's catheter Objective vital signs Vital Sign Date Time Temp Pulse Resp B/P (MAP) Pulse Ox O2 Delivery O2 Flow Rate FiO2 05/10/24 09:11 121/61 05/10/24 09:10 75 05/10/24 09:00 97.8 17 96 97.8 05/10/24 08:15 Nasal Cannula* 4 36 Total Intake and Output 05/09/24 05/09/24 05/10/24 15:00 23:00 07:00 Intake Total 100 ml Output Total 1600 ml 601 ml Balance -1600 ml -501 ml medications Current Medications Medications Dose Ordered Sig/Leonard Route Start Time Stop Time Status Last Admin Dose Admin Apixaban 5 mg BID PO 05/09/24 22:00 05/10/24 09:11 5 MG Allopurinol 300 mg DAILY PO 05/10/24 10:00 05/10/24 09:11 300 MG Aspirin 81 mg DAILY PO 05/10/24 10:00 05/10/24 09:11 81 MG Atorvastatin Calcium 40 mg HS PO 05/09/24 22:00 05/09/24 21:46 40 MG Furosemide 20 mg DAILY IV 05/10/24 10:00 05/10/24 09:10 20 MG Empaglifozin 10 mg DAILY PO 05/10/24 10:00 05/10/24 09:11 10 MG Lisinopril 20 mg DAILY PO 05/10/24 10:00 05/10/24 09:11 20 MG Metoprolol Succinate 25 mg DAILY PO 05/10/24 10:00 05/10/24 09:10 25 MG Ondansetron HCl 4 mg Q4HP PRN IV 05/09/24 21:15 Acetaminophen 650 mg Q6HP PRN PO 05/09/24 21:15 Oxycodone/ Acetaminophen 2 tab Q6HP PRN PO 05/10/24 04:00 05/10/24 10:23 2 TAB Methylprednisolone Sodium Succinate 40 mg BID IV 05/10/24 22:00 Examination Physical Examination Constitutional: Patient is alert and oriented to time, place and person and his breathing comfortably with a respiratory rate less than 22 per minute. Gen - no pallor, no icterus, no cyanosis, no clubbing, no LAD, no putting edema . Skin - Patients skin is warm and dry.. HEENT - normocephalic, atraumatic, moist mucous membranes. Neck - full ROM, no LAD, no JVD Pulmonary - B/L decreased breath sounds but no wheezing or crackles cardiovascular - normal S1,S2 heard. no murmurs heard. GI - soft abdomen without tenderness to palpation. no hepatospleenomegaly. Bowel sounds normoactive Neurological - Bilateral upper extremity strength 5/5, right lower extremity strength 3/5, left lower extremity strength 4/5, no facial droop, normal speech, no tremor, no sensory deficiets. laboratory and microbiology Laboratory Tests 05/10/24 06:38 05/09/24 17:05 Test 05/10/24 06:38 Range/Units Serum Glucose 183 H 74-106 mg/dL Microbiology Date/Time Source Procedure Growth Status 05/09/24 17:05 Blood Blood Culture - Preliminary Resulted Problem List/Assessment/Plan Problem List/Assessment/Plan Assessment Acute on chronic hypoxic respiratory failure Acute Respiratory alkalosis Acute COPD exacerbation with suspected pneumonia ?Pneumonia likely due to ?Gram+/- ?Atypical bacteria Bacteremia with preliminary blood cultures showing gram positive cocci in clusters Hypertensive heart disease with heart failure Heart failure with mildly reduced ejection fraction Chronic pain ?Right Hip osteoarthritis Plan - Covid and influenza negative - On 4L O2 via nasal cannula - IV steroids - Duonebs q8hr - IV ceftriaxone - IV vancomycin for bacteremia - continued on home medications for HTN and HF - continue on home dose of percoset DVT prophylaxis: enoxaparin PUD prophylaxis: protonix Goals of care discusses with the patient for over 29 mins. Full code Plan discussed with Plan discussed with: Patient My Orders My Orders Orders - CHEN MANCERA Procedure Category Date Status Time Methylprednisolone PHA 05/10/24 In Process Sod Succ (Solu Medrol 22:00 Date of Service: May 10, 2024 Billing Provider: DEN HUNTER MD Common Visit Codes: [id number] INP/OBS CARE(HIGH) CHEN MANCERA RESIDENT May 10, 2024 16:53 DEN HUNTER MD May 10, 2024 23:11
[2024-05-10] MEDS: MAGNESIUM SULFATE 1GM/100ML 100 ML IV ONE (17:55)
[2024-05-10] MEDS: VANCOMYCIN 1GM/250ML KIT 250 ML IV ONE (18:36)
[2024-05-10 18:48] LABS: COVID19 ANTIGEN SOFIA FIA NEGATIVE (NEGATIVE); Rapid Influenza A Negative (Negative); Rapid Influenza B Negative (Negative)
[2024-05-10] MEDS: methylPREDNISolone SOD SUCC 40 MG/ML VL IV SCH (20:50)
[2024-05-10] MEDS: IPRATROPIUM BROM 0.5 MG/2.5ML INH SOL NEB SCH (23:07)
[2024-05-10] MEDS: LEVALBUTEROL HCL 1.25 MG/3 ML NEB NEB SCH (23:08)
[2024-05-11] VITALS (14 sets, daily range): BP systolic 120–149; BP diastolic 66–92; PULSE 61–98; RESP 18–20; TEMP 97.9–98.4; O2SAT 94–99
[2024-05-11] MEDS: PANTOPRAZOLE 40 MG TAB PO SCH (06:10)
[2024-05-11 06:57] LABS: Basophils # (auto) 0 10 ^3/uL (0-0.2); Basophils % (auto) 0.1 % (0.0-2.0); Eosinophils # (auto) 0 10 ^3/uL (0-0.8); Hemoglobin 13.8 g/dL (12.2-16.2); Lymphocytes # (auto) 0.5 10 ^3/uL (0.4-5.4); Lymphocytes % (auto) 5.8 % (10.0-50.0); Mean Corpuscular Hemoglobin 33.3 pg (28.0-32.0); Mean Corpuscular Hgb Conc. 33.7 g/dL (32.0-36.0); Monocytes # (auto) 0.2 10 ^3/uL (0-1.3); Monocytes % (auto) 2.7 % (0.0-12.0); Neutrophils # (auto) 8.2 10 ^3/uL (1.6-8.6); Neutrophils % (auto) 91.4 % (37.0-80.0); Nucleated Red Blood Cells % 0.1 %; Platelet Count (auto) 240 10^3/uL (140-450); Red Blood Cells 4.14 10^6/uL (4.0-5.20); Red Cell Distribution Width 18.6 % (11.8-14.3)
[2024-05-11 07:15] LABS: Alanine Aminotransferase 15 U/L (7-40); Albumin 4.3 g/dL (3.2-4.8); Alkaline Phosphatase 88 U/L (46-116); Anion Gap 10 (5-15); Aspartate Aminotransferase 19 U/L (13-40); Bilirubin, Total 0.8 mg/dL (0.2-1.0); Blood Urea Nitrogen 20 mg/dL (9-23); Carbon Dioxide 26 mmol/L (20-31); Chloride 106 mmol/L (98-107); Potassium 4.1 mmol/L (3.5-5.1); Sodium 142 mmol/L (136-145); Total Protein 6.7 g/dL (5.7-8.2)
[2024-05-11 07:18] LABS: Glucose 179 mg/dL (74-106)
[2024-05-11] MEDS: cefTRIAXone 1GM/50ML D5W 50 ML IV SCH (09:15)
[2024-05-11] MEDS ORDERED: ENOXAPARIN SOD 40 MG/0.4 ML SYRINGE SC SCH (10:00)
[2024-05-11] MEDS: VANCOMYCIN 1GM/250ML KIT 250 ML IV SCH (16:01)
--- NOTE | 2024-05-11 18:45 | DVHPNRES ---
Progress Note Date Seen: May 11, 2024 Resident Creating Document: JHCHEN SOLANO RESIDENT Medical Necessity Reason Pt with a Central, PICC or Fol: Yes The following are medically ne: Hutchinson Catheter Subjective Review of Systems Patient reports that her respiratory distress has improved since yesterday. Reports that her right hip pain has also improved Objective vital signs Vital Sign Date Time Temp Pulse Resp B/P (MAP) Pulse Ox O2 Delivery O2 Flow Rate FiO2 05/11/24 16:39 98.3 84 20 149/81 (103) 96 98.3 05/11/24 15:00 Nasal Cannula 4.0 05/11/24 15:00 36 Total Intake and Output 05/10/24 05/10/24 05/11/24 15:00 23:00 07:00 Intake Total 420 ml 800 ml Output Total 1251 ml 650 ml Balance -831 ml 150 ml medications Current Medications Medications Dose Ordered Sig/Leonard Route Start Time Stop Time Status Last Admin Dose Admin Apixaban 5 mg BID PO 05/09/24 22:00 05/11/24 10:04 5 MG Allopurinol 300 mg DAILY PO 05/10/24 10:00 05/11/24 10:03 300 MG Aspirin 81 mg DAILY PO 05/10/24 10:00 05/11/24 10:03 81 MG Atorvastatin Calcium 40 mg HS PO 05/09/24 22:00 05/10/24 20:51 40 MG Furosemide 20 mg DAILY IV 05/10/24 10:00 05/11/24 10:04 20 MG Empaglifozin 10 mg DAILY PO 05/10/24 10:00 05/11/24 10:05 10 MG Lisinopril 20 mg DAILY PO 05/10/24 10:00 05/11/24 10:04 20 MG Metoprolol Succinate 25 mg DAILY PO 05/10/24 10:00 05/11/24 10:03 25 MG Ondansetron HCl 4 mg Q4HP PRN IV 05/09/24 21:15 Acetaminophen 650 mg Q6HP PRN PO 05/09/24 21:15 Methylprednisolone Sodium Succinate 40 mg BID IV 05/10/24 22:00 05/11/24 10:05 40 MG Vancomycin HCl 0 ml @ 0 mls/hr UD IV 05/10/24 16:15 Oxycodone/ Acetaminophen 2 tab Q4HP PRN PO 05/10/24 16:45 05/11/24 18:24 2 TAB Amlodipine Besylate 5 mg DAILY PO 05/11/24 22:00 Ceftriaxone Sodium 50 ml @ 100 mls/hr DAILY@09 IV 05/11/24 09:00 05/11/24 09:59 100 MLS/HR Levalbuterol HCl 1.25 mg Q8HR NEB 05/10/24 22:00 05/11/24 15:00 1.25 MG Ipratropium [place] 0.5 mg Q8HR NEB 05/10/24 22:00 05/11/24 15:00 0.5 MG Pantoprazole Sodium 40 mg DAILY@0600 PO 05/11/24 06:00 05/11/24 06:10 40 MG Vancomycin HCl 250 ml @ 250 mls/hr Q18H IV 05/11/24 15:00 05/11/24 16:01 250 MLS/HR Examination Constitutional: Patient is alert and oriented to time, place and person and his breathing comfortably with a respiratory rate less than 20 per minute. Gen - no pallor, no icterus, no cyanosis, no clubbing, no LAD, no pitting edema . Skin - Patients skin is warm and dry.. HEENT - normocephalic, atraumatic, moist mucous membranes. Neck - full ROM, no LAD, no JVD Pulmonary - B/L equal air entry with a improved breath sounds since yesterday, no crackles or wheezing cardiovascular - normal S1,S2 heard. no murmurs heard. GI - soft abdomen without tenderness to palpation. no hepatospleenomegaly. Bowel sounds normoactive Neurological - Bilateral upper extremity strength 5/5, right lower extremity strength 3/5, left lower extremity strength 4/5, no facial droop, normal speech, no tremor, no sensory deficiets. laboratory and microbiology Laboratory Tests 05/11/24 06:06 Test 05/11/24 06:06 Range/Units Serum Glucose 179 H 74-106 mg/dL Microbiology Date/Time Source Procedure Growth Status 05/10/24 16:42 Nose MRSA Screen - Final Complete 05/09/24 17:05 Blood Blood Culture - Preliminary Resulted Problem List/Assessment/Plan Problem List/Assessment/Plan Assessment Acute on chronic hypoxic respiratory failure Acute Respiratory alkalosis Acute COPD exacerbation with suspected pneumonia ?Pneumonia likely due to ?Gram+/- ?Atypical bacteria Bacteremia with preliminary blood cultures showing gram positive cocci in clusters Hypertensive heart disease with heart failure Heart failure with mildly reduced ejection fraction Chronic pain ?Right Hip osteoarthritis Paroxysmal atrial fibrillation H/o gout Plan - Covid and influenza negative - On 4L O2 via nasal cannula - IV steroids - Duonebs q8hr - IV ceftriaxone - IV vancomycin for bacteremia - continued on home medications for HTN and HF - continue on home dose of percoset - on Eliquis 5 mg b.i.d. DVT prophylaxis: enoxaparin PUD prophylaxis: protonix Goals of care discusses with the patient for over 23 mins. Full code Plan discussed with Plan discussed with: Patient My Orders My Orders Orders - CHEN MANCERA Procedure Category Date Status Time Amlodipine Tablet PHA 05/11/24 In Process (Norvasc Tablet) 22:00 Ceftriaxone 1gm/50ml PHA 05/11/24 In Process D5w (Rocephin) 09:00 Levalbuterol Hcl PHA 05/10/24 In Process (Xopenex Medneb) 22:00 Ipratropium Medneb PHA 05/10/24 In Process (Atrovent Medneb) 22:00 Pantoprazole Tablet PHA 05/11/24 In Process (Protonix Tablet) 06:00 Vancomycin Per DEBRA 05/13/24 In Process Pharmacy Protoc 03:00 Vancomycin,Trough LAB 05/13/24 Verified 02:00 Creatinine LAB 05/12/24 Verified 05:00 Vancomycin 1gm/250ml PHA 05/11/24 In Process Kit 15:00 Date of Service: May 11, 2024 Billing Provider: DEN HUNTER MD Common Visit Codes: [id number] INP/OBS CARE(HIGH) CHEN MANCERA RESIDENT May 11, 2024 18:45 DEN HUNTER MD May 12, 2024 07:27
[2024-05-11] MEDS: amLODIPine BESYLATE 5 MG TAB PO SCH (22:41)
[2024-05-12] VITALS (13 sets, daily range): BP systolic 113–137; BP diastolic 70–83; PULSE 56–91; RESP 16–18; TEMP 97.9–98.8; O2SAT 92–98
[2024-05-12 07:29] LABS: Basophils # (auto) 0 10 ^3/uL (0-0.2); Basophils % (auto) 0.1 % (0.0-2.0); Eosinophils # (auto) 0 10 ^3/uL (0-0.8); Eosinophils % (auto) 0.1 % (0.0-7.0); Hematocrit 41.2 % (36.0-46.0); Hemoglobin 13.6 g/dL (12.2-16.2); Lymphocytes # (auto) 0.5 10 ^3/uL (0.4-5.4); Lymphocytes % (auto) 5.2 % (10.0-50.0); Mean Corpuscular Hgb Conc. 32.9 g/dL (32.0-36.0); Mean Corpuscular Volume 100.2 fL (80.0-100.0); Monocytes # (auto) 0.3 10 ^3/uL (0-1.3); Monocytes % (auto) 2.5 % (0.0-12.0); Neutrophils # (auto) 9.4 10 ^3/uL (1.6-8.6); Neutrophils % (auto) 92.1 % (37.0-80.0); Platelet Count (auto) 232 10^3/uL (140-450); Red Blood Cells 4.11 10^6/uL (4.0-5.20); White Blood Cell 10.2 10^3/uL (4.4-10.8)
[2024-05-12 07:44] LABS: Anion Gap 9 (5-15); Calcium 9.7 mg/dL (8.7-10.4); Carbon Dioxide 27 mmol/L (20-31); Chloride 103 mmol/L (98-107); Potassium 3.6 mmol/L (3.5-5.1); Sodium 139 mmol/L (136-145)
[2024-05-12 07:51] LABS: BUN/Creatinine Ratio 22.4 (10.0-20.0); Blood Urea Nitrogen 19 mg/dL (9-23); Glucose 172 mg/dL (74-106)
--- NOTE | 2024-05-12 14:14 | DVHPNRES ---
Progress Note Date Seen: May 12, 2024 Resident Creating Document: CHEN MANCERA RESIDENT Medical Necessity Reason Pt with a Central, PICC or Fol: Yes The following are medically ne: Hutchinson Catheter Subjective Review of Systems Patient reports that her respiratory distress has improved since yesterday. Reports that her right hip pain has also improved Objective vital signs Vital Sign Date Time Temp Pulse Resp B/P (MAP) Pulse Ox O2 Delivery O2 Flow Rate FiO2 05/12/24 12:05 98.3 90 17 113/80 (91) 92 98.3 05/12/24 10:00 Nasal Cannula 4.0 05/12/24 10:00 36 Total Intake and Output 05/11/24 05/11/24 05/12/24 15:00 23:00 07:00 Intake Total 50 ml 1010 ml 920 ml Output Total 1100 ml 1000 ml Balance 50 ml -90 ml -80 ml medications Current Medications Medications Dose Ordered Sig/Leonard Route Start Time Stop Time Status Last Admin Dose Admin Apixaban 5 mg BID PO 05/09/24 22:00 05/12/24 09:24 5 MG Allopurinol 300 mg DAILY PO 05/10/24 10:00 05/12/24 09:24 300 MG Aspirin 81 mg DAILY PO 05/10/24 10:00 05/12/24 09:24 81 MG Atorvastatin Calcium 40 mg HS PO 05/09/24 22:00 05/11/24 22:40 40 MG Furosemide 20 mg DAILY IV 05/10/24 10:00 05/12/24 09:47 20 MG Empaglifozin 10 mg DAILY PO 05/10/24 10:00 05/12/24 09:25 10 MG Lisinopril 20 mg DAILY PO 05/10/24 10:00 05/12/24 09:28 20 MG Metoprolol Succinate 25 mg DAILY PO 05/10/24 10:00 05/12/24 09:27 25 MG Ondansetron HCl 4 mg Q4HP PRN IV 05/09/24 21:15 Acetaminophen 650 mg Q6HP PRN PO 05/09/24 21:15 Methylprednisolone Sodium Succinate 40 mg BID IV 05/10/24 22:00 05/12/24 09:47 40 MG Vancomycin HCl 0 ml @ 0 mls/hr UD IV 05/10/24 16:15 Amlodipine Besylate 5 mg DAILY PO 05/11/24 22:00 05/12/24 09:25 5 MG Ceftriaxone Sodium 50 ml @ 100 mls/hr DAILY@09 IV 05/11/24 09:00 05/11/24 09:59 100 MLS/HR Levalbuterol HCl 1.25 mg Q8HR NEB 05/10/24 22:00 05/11/24 15:00 1.25 MG Ipratropium [place] 0.5 mg Q8HR NEB 05/10/24 22:00 05/11/24 15:00 0.5 MG Pantoprazole Sodium 40 mg DAILY@0600 PO 05/11/24 06:00 05/12/24 06:04 40 MG Vancomycin HCl 250 ml @ 250 mls/hr Q18H IV 05/11/24 15:00 05/12/24 09:23 250 MLS/HR Oxycodone/ Acetaminophen 2 tab Q4HR PO 05/12/24 14:00 Examination Constitutional: Patient is alert and oriented to time, place and person and his breathing comfortably with a respiratory rate less than 20 per minute. Gen - no pallor, no icterus, no cyanosis, no clubbing, no LAD, no pitting edema . Skin - Patients skin is warm and dry.. HEENT - normocephalic, atraumatic, moist mucous membranes. Neck - full ROM, no LAD, no JVD Pulmonary - B/L equal air entry with a improved breath sounds since yesterday, no crackles or wheezing cardiovascular - normal S1,S2 heard. no murmurs heard. GI - soft abdomen without tenderness to palpation. no hepatospleenomegaly. Bowel sounds normoactive Neurological - Bilateral upper extremity strength 5/5, right lower extremity strength 3/5, left lower extremity strength 4/5, no facial droop, normal speech, no tremor, no sensory deficiets. laboratory and microbiology Laboratory Tests 05/12/24 06:03 Test 05/12/24 06:03 Range/Units Serum Glucose 172 H 74-106 mg/dL Microbiology Date/Time Source Procedure Growth Status 05/10/24 16:42 Nose MRSA Screen - Final Complete 05/09/24 17:05 Blood Blood Culture - Preliminary Resulted Problem List/Assessment/Plan Problem List/Assessment/Plan Assessment Acute on chronic hypoxic respiratory failure Acute Respiratory alkalosis Acute COPD exacerbation with suspected pneumonia ?Pneumonia likely due to ?Gram+/- ?Atypical bacteria Bacteremia with preliminary blood cultures showing gram positive cocci in clusters Hypertensive heart disease with heart failure Heart failure with mildly reduced ejection fraction Chronic pain ?Right Hip osteoarthritis Paroxysmal atrial fibrillation H/o gout Plan - Covid and influenza negative - On 3L O2 via nasal cannula - IV steroids - Duonebs q8hr - IV ceftriaxone - IV vancomycin for bacteremia - continued on home medications for HTN and HF - continue on home dose of percoset - on Eliquis 5 mg b.i.d. DVT prophylaxis: enoxaparin PUD prophylaxis: protonix Goals of care discusses with the patient for over 23 mins. Full code Plan discussed with Plan discussed with: Patient My Orders My Orders Orders - CHEN MANCERA Procedure Category Date Status Time Vancomycin Per DEBRA 05/13/24 In Process Pharmacy Protoc 03:00 Vancomycin,Trough LAB 05/13/24 Verified 02:00 Vancomycin 1gm/250ml PHA 05/11/24 In Process Kit 15:00 Oxycodone W/ Acet PHA 05/12/24 In Process 5/325mg Tab (Percocet 14:00 Date of Service: May 12, 2024 Billing Provider: DEN HUNTER MD Common Visit Codes: [id number] INP/OBS CARE(HIGH) CHEN MANCERA RESIDENT May 12, 2024 14:14 DEN HUNTER MD May 12, 2024 23:53
[2024-05-12] MEDS: OXYCODONE W/ ACETAMINOPHEN 5/325MG TABLET PO SCH (14:22)
[2024-05-12] MEDS: cefTRIAXone 1GM/50ML D5W 50 ML IV ONE (15:37)
[2024-05-13] VITALS (13 sets, daily range): BP systolic 122–140; BP diastolic 68–86; PULSE 59–93; RESP 16–20; TEMP 97.6–98.8; O2SAT 93–100
[2024-05-13 02:24] LABS: Basophils # (auto) 0 10 ^3/uL (0-0.2); Eosinophils # (auto) 0 10 ^3/uL (0-0.8); Hematocrit 44.3 % (36.0-46.0); Hemoglobin 14.5 g/dL (12.2-16.2); Lymphocytes # (auto) 0.4 10 ^3/uL (0.4-5.4); Lymphocytes % (auto) 3.9 % (10.0-50.0); Mean Corpuscular Hemoglobin 32.2 pg (28.0-32.0); Mean Corpuscular Hgb Conc. 32.8 g/dL (32.0-36.0); Mean Corpuscular Volume 98.3 fL (80.0-100.0); Monocytes # (auto) 0.3 10 ^3/uL (0-1.3); Monocytes % (auto) 3.2 % (0.0-12.0); Neutrophils # (auto) 8.7 10 ^3/uL (1.6-8.6); Neutrophils % (auto) 92.9 % (37.0-80.0); Platelet Count (auto) 242 10^3/uL (140-450); Red Blood Cells 4.51 10^6/uL (4.0-5.20); Red Cell Distribution Width 18.1 % (11.8-14.3); White Blood Cell 9.3 10^3/uL (4.4-10.8)
[2024-05-13 02:31] LABS: Chloride 100 mmol/L (98-107); Sodium 138 mmol/L (136-145)
[2024-05-13 02:32] LABS: Anion Gap 6 (5-15)
[2024-05-13 02:33] LABS: Calcium 10.1 mg/dL (8.7-10.4)
[2024-05-13 02:34] LABS: Carbon Dioxide 32 mmol/L (20-31); Potassium 3.3 mmol/L (3.5-5.1)
[2024-05-13 02:37] LABS: BUN/Creatinine Ratio 27.5 (10.0-20.0); Blood Urea Nitrogen 22 mg/dL (9-23)
[2024-05-13 02:42] LABS: Glucose 125 mg/dL (74-106)
[2024-05-13] MEDS: OXYCODONE W/ ACETAMINOPHEN 5/325MG TABLET PO PRN (20:24)
[2024-05-13] MEDS: oxyCODONE ER 20 MG TAB PO SCH (21:43)
--- NOTE | 2024-05-13 23:20 | DVHPN2 ---
Subjective The patient seen and examined at bedside. The patient said she is not feeling well. She is very tired. Reviewed: Care Plan, H&P, Labs, Medications, Previous Orders, Radiology Changes from previous H/P or p: No Changes Objective Vitals Vital Signs Date Time Temp Pulse Resp B/P (MAP) Pulse Ox O2 Delivery O2 Flow Rate FiO2 05/13/24 22:17 62 16 100 05/13/24 17:09 98.1 122/74 (90) 98.1 05/13/24 10:07 Nasal Cannula* 4 36 Intake/Output Intake and Output 05/13/24 07:00 Intake Total 2143 ml Output Total 3150 ml Balance -1007 ml Intake Oral 1893 ml IV Total 250 ml Output Urine Total 3150 ml General Appearance: Alert, No acute distress HEENT: Atraumatic, PERRLA, EOMI, Mucous membr. moist/pink Neck: Supple Lungs: Clear to auscultation, Normal air movement Cardiovascular: Regular rate, Normal S1, Normal S2, No murmurs, Gallops, Rubs Abdomen: Normal bowel sounds, Soft, No tenderness Neuro: Cranial nerves 3-12 NL Psych/Mental Status: Mental status NL Medications Current Medications Medications Dose Ordered Sig/Leonard Route Start Time Stop Time Status Last Admin Dose Admin Apixaban 5 mg BID PO 05/09/24 22:00 05/13/24 21:40 5 MG Allopurinol 300 mg DAILY PO 05/10/24 10:00 05/13/24 10:24 300 MG Aspirin 81 mg DAILY PO 05/10/24 10:00 05/13/24 10:23 81 MG Atorvastatin Calcium 40 mg HS PO 05/09/24 22:00 05/13/24 21:40 40 MG Furosemide 20 mg DAILY IV 05/10/24 10:00 05/13/24 10:23 20 MG Empaglifozin 10 mg DAILY PO 05/10/24 10:00 05/13/24 10:24 10 MG Lisinopril 20 mg DAILY PO 05/10/24 10:00 05/13/24 10:25 20 MG Metoprolol Succinate 25 mg DAILY PO 05/10/24 10:00 05/13/24 10:26 25 MG Ondansetron HCl 4 mg Q4HP PRN IV 05/09/24 21:15 Acetaminophen 650 mg Q6HP PRN PO 05/09/24 21:15 Methylprednisolone Sodium Succinate 40 mg BID IV 05/10/24 22:00 05/13/24 10:23 40 MG Vancomycin HCl 0 ml @ 0 mls/hr UD IV 05/10/24 16:15 Amlodipine Besylate 5 mg DAILY PO 05/11/24 22:00 05/13/24 10:25 5 MG Ceftriaxone Sodium 50 ml @ 100 mls/hr DAILY@09 IV 05/11/24 09:00 05/13/24 10:17 100 MLS/HR Levalbuterol HCl 1.25 mg Q8HR NEB 05/10/24 22:00 05/13/24 22:07 1.25 MG Ipratropium [place] 0.5 mg Q8HR NEB 05/10/24 22:00 05/13/24 22:07 0.5 MG Pantoprazole Sodium 40 mg DAILY@0600 PO 05/11/24 06:00 05/13/24 06:46 40 MG Vancomycin HCl 250 ml @ 250 mls/hr Q18H IV 05/11/24 15:00 05/13/24 21:53 250 MLS/HR Oxycodone/ Acetaminophen 1 tab Q4HP PRN PO 05/13/24 23:00 05/13/24 20:24 1 TAB Oxycodone HCl 20 mg Q12HR PO 05/13/24 22:00 05/13/24 21:43 20 MG Laboratory Results Laboratory Tests 05/13/24 02:05 Chemistry Test 05/13/24 02:05 Calcium Level 10.1 mg/dL (8.7-10.4) Urinalysis Test 05/09/24 21:01 Urine Color Colorless (Yellow) Urine Clarity Clear (Clear) Urine pH 5.0 (5.0-9.0) Urine Specific [place] 1.006 (1.001-1.035) Urine Protein Negative (Negative) Urine Ketones Negative (Negative) Urine Blood Negative /uL (Negative) Urine Nitrite Negative (Negative) Urine Bilirubin Negative (Negative) Urine Urobilinogen Normal mg/dL (Negative) Urine Leukocyte Esterase Negative /uL (Negative) Urine RBC 1 /hpf (0 - 4) Urine Microscopic WBC < 1 /HPF (0-5) Urine Squamous Epithelial Cells None seen /hpf (<5) Urine Bacteria None seen /hpf (None Seen) Urine Hyaline Casts Few /lpf (0 - 2) Urine Glucose 2+ mg/dL (Normal) H Microbiology Microbiology Date/Time Source Procedure Growth Status 05/10/24 16:42 Nose MRSA Screen - Final Complete 05/09/24 17:05 Blood Blood Culture - Final Staphylococcus epidermidis Complete Labs and/or images reviewed: Labs reviewed by me Assessment/Plan Assessment/Plan Acute on chronic hypoxic respiratory failure Acute Respiratory alkalosis Acute COPD exacerbation with suspected pneumonia ?Pneumonia likely due to ?Gram+/- ?Atypical bacteria Bacteremia with Staph. epidermitis Hypertensive heart disease with heart failure Heart failure with mildly reduced ejection fraction Chronic pain ?Right Hip osteoarthritis Paroxysmal atrial fibrillation H/o gout Plan - Covid and influenza negative - On 3L O2 via nasal cannula, will try to wean off - Continue IV steroids solu-medrol - Duonebs q8hr - Continue IV ceftriaxone - Continue IV vancomycin for bacteremia - continued on home medications for HTN and HF - continue on home dose of percoset - on Eliquis 5 mg b.i.d. -Discharge planning. DVT prophylaxis: enoxaparin PUD prophylaxis: protonix Plan discussed with: Patient My Orders Orders - DEN HUNTER MD Procedure Category Date Status Time Oxycodone W/ Acet PHA 05/13/24 In Process 5/325mg Tab (Percocet 23:00 Oxycodone Er Tablet PHA 05/13/24 In Process (Oxycontin Er Tablet 22:00 Date of Service: May 13, 2024 Billing Provider: DEN HUNTER MD Common Visit Codes: [id number] INP/OBS CARE(HIGH) DEN HUNTER MD May 13, 2024 23:20
[2024-05-14] VITALS (15 sets, daily range): BP systolic 111–141; BP diastolic 72–89; PULSE 60–104; RESP 15–20; TEMP 97.6–98; O2SAT 91–98
[2024-05-14 08:36] LABS: Basophils # (auto) 0 10 ^3/uL (0-0.2); Eosinophils # (auto) 0 10 ^3/uL (0-0.8); Hematocrit 45.3 % (36.0-46.0); Lymphocytes # (auto) 0.7 10 ^3/uL (0.4-5.4); Lymphocytes % (auto) 5.5 % (10.0-50.0); Mean Corpuscular Hemoglobin 32.4 pg (28.0-32.0); Mean Corpuscular Hgb Conc. 33.1 g/dL (32.0-36.0); Mean Corpuscular Volume 97.8 fL (80.0-100.0); Monocytes # (auto) 0.9 10 ^3/uL (0-1.3); Neutrophils # (auto) 11.3 10 ^3/uL (1.6-8.6); Neutrophils % (auto) 87.5 % (37.0-80.0); Nucleated Red Blood Cells % 0.1 %; Platelet Count (auto) 242 10^3/uL (140-450); Red Blood Cells 4.63 10^6/uL (4.0-5.20); Red Cell Distribution Width 17.1 % (11.8-14.3); White Blood Cell 12.9 10^3/uL (4.4-10.8)
[2024-05-14 08:38] LABS: Sodium 138 mmol/L (136-145)
[2024-05-14 08:39] LABS: Anion Gap 9 (5-15); Calcium 9.9 mg/dL (8.7-10.4)
[2024-05-14 08:43] LABS: Carbon Dioxide 32 mmol/L (20-31); Chloride 97 mmol/L (98-107); Potassium 3.5 mmol/L (3.5-5.1)
[2024-05-14 08:44] LABS: BUN/Creatinine Ratio 31.4 (10.0-20.0)
[2024-05-14 08:45] LABS: Magnesium 2.1 mg/dL (1.6-2.6)
[2024-05-14 08:46] LABS: Blood Urea Nitrogen 27 mg/dL (9-23); Glucose 132 mg/dL (74-106)
[2024-05-14] MEDS: POTASSIUM CHL 20 Meq TABLET PO ONE (10:08)
[2024-05-14] MEDS ORDERED: OXYCODONE W/ ACETAMINOPHEN 5/325MG TABLET PO PRN (12:45)
--- NOTE | 2024-05-14 16:05 | DVHPNRES ---
Progress Note Date Seen: May 14, 2024 Resident Creating Document: JHCHEN SOLANO RESIDENT Medical Necessity Reason Pt with a Central, PICC or Fol: Yes The following are medically ne: Hutchinson Catheter Subjective Review of Systems Patient seen and examined at bedside Reports that she had a episode of difficulty breathing in the night following which she was given a breathing treatment which helped her. Pain in the right hip has improved significantly Objective vital signs Vital Sign Date Time Temp Pulse Resp B/P (MAP) Pulse Ox O2 Delivery O2 Flow Rate FiO2 05/14/24 14:25 104 18 98 05/14/24 13:00 98.0 134/84 (101) 98.0 05/14/24 10:00 Nasal Cannula 4.0 05/14/24 10:00 36 Total Intake and Output 05/13/24 05/13/24 05/14/24 15:00 23:00 07:00 Intake Total 900 ml 600 ml Output Total 1000 ml 1851 ml Balance -100 ml -1251 ml medications Current Medications Medications Dose Ordered Sig/Leonard Route Start Time Stop Time Status Last Admin Dose Admin Apixaban 5 mg BID PO 05/09/24 22:00 05/14/24 10:09 5 MG Allopurinol 300 mg DAILY PO 05/10/24 10:00 05/14/24 10:11 300 MG Aspirin 81 mg DAILY PO 05/10/24 10:00 05/14/24 10:08 81 MG Atorvastatin Calcium 40 mg HS PO 05/09/24 22:00 05/13/24 21:40 40 MG Furosemide 20 mg DAILY IV 05/10/24 10:00 05/14/24 10:14 20 MG Empaglifozin 10 mg DAILY PO 05/10/24 10:00 05/14/24 10:33 10 MG Lisinopril 20 mg DAILY PO 05/10/24 10:00 05/14/24 10:11 20 MG Metoprolol Succinate 25 mg DAILY PO 05/10/24 10:00 05/14/24 10:10 25 MG Ondansetron HCl 4 mg Q4HP PRN IV 05/09/24 21:15 Acetaminophen 650 mg Q6HP PRN PO 05/09/24 21:15 Methylprednisolone Sodium Succinate 40 mg BID IV 05/10/24 22:00 05/14/24 10:13 40 MG Vancomycin HCl 0 ml @ 0 mls/hr UD IV 05/10/24 16:15 Amlodipine Besylate 5 mg DAILY PO 05/11/24 22:00 05/14/24 10:09 5 MG Ceftriaxone Sodium 50 ml @ 100 mls/hr DAILY@09 IV 05/11/24 09:00 05/14/24 10:09 100 MLS/HR Levalbuterol HCl 1.25 mg Q8HR NEB 05/10/24 22:00 05/14/24 14:15 1.25 MG Ipratropium [place] 0.5 mg Q8HR NEB 05/10/24 22:00 05/14/24 14:15 0.5 MG Pantoprazole Sodium 40 mg DAILY@0600 PO 05/11/24 06:00 05/14/24 05:54 40 MG Vancomycin HCl 250 ml @ 250 mls/hr Q18H IV 05/11/24 15:00 05/13/24 21:53 250 MLS/HR Oxycodone/ Acetaminophen 1 tab Q4HP PRN PO 05/13/24 23:00 05/14/24 07:30 1 TAB Oxycodone HCl 20 mg Q12HR PO 05/13/24 22:00 05/14/24 10:13 20 MG Potassium Chloride 20 meq DAILY PO 05/15/24 10:00 Examination Constitutional: Patient is alert and oriented to time, place and person and his breathing comfortably with a respiratory rate less than 20 per minute. Gen - no pallor, no icterus, no cyanosis, no clubbing, no LAD, no pitting edema . Skin - Patients skin is warm and dry.. HEENT - normocephalic, atraumatic, moist mucous membranes. Neck - full ROM, no LAD, no JVD Pulmonary - B/L equal air entry with a improved breath sounds since yesterday, no crackles or wheezing cardiovascular - normal S1,S2 heard. no murmurs heard. GI - soft abdomen without tenderness to palpation. no hepatospleenomegaly. Bowel sounds normoactive Neurological - Bilateral upper extremity strength 5/5, right lower extremity strength 3/5, left lower extremity strength 4/5, no facial droop, normal speech, no tremor, no sensory deficiets. laboratory and microbiology Laboratory Tests 05/14/24 06:16 Test 05/14/24 06:16 Range/Units Serum Glucose 132 H 74-106 mg/dL Microbiology Date/Time Source Procedure Growth Status 05/10/24 16:42 Nose MRSA Screen - Final Complete 05/09/24 17:05 Blood Blood Culture - Final Staphylococcus epidermidis Complete Problem List/Assessment/Plan Problem List/Assessment/Plan Assessment Acute on chronic hypoxic respiratory failure Acute Respiratory alkalosis Acute COPD exacerbation with suspected pneumonia ?Pneumonia likely due to ?Gram+/- ?Atypical bacteria Bacteremia with preliminary blood cultures showing gram positive cocci in clusters Hypertensive heart disease with heart failure Heart failure with mildly reduced ejection fraction Chronic pain ?Right Hip osteoarthritis Paroxysmal atrial fibrillation H/o gout Plan - Covid and influenza negative - On 3L O2 via nasal cannula - IV steroids - Duonebs q8hr - IV ceftriaxone - IV vancomycin for bacteremia - continued on home medications for HTN and HF - continue on home dose of percoset - on Eliquis 5 mg b.i.d. Patient's blood culture grew Staph epidermidis with sensitivities to multiple drugs. Repeat blood cultures ordered. On discharge patient can be sent with oral antibiotics as she does not have history of any prosthetic devices. DVT prophylaxis: enoxaparin PUD prophylaxis: protonix Goals of care discusses with the patient for over 23 mins. Full code Plan discussed with Plan discussed with: Patient My Orders My Orders Orders - CHEN MANCERA Procedure Category Date Status Time Potassium Er Tablet PHA 05/15/24 In Process (Klor-Con Tablet) 10:00 Date of Service: May 14, 2024 Billing Provider: DEN HUNTER MD Common Visit Codes: [id number] INP/OBS CARE(HIGH) CHEN MANCERA RESIDENT May 14, 2024 16:05 DEN HUNTER MD May 14, 2024 20:02
[2024-05-14] MEDS: ONDANSETRON HCL 4 MG/2 ML VIAL IV PRN (17:41)
[2024-05-15] VITALS (18 sets, daily range): BP systolic 122–143; BP diastolic 58–77; PULSE 57–82; RESP 1–20; TEMP 97.3–98.4; O2SAT 92–100
[2024-05-15 07:23] LABS: Basophils # (auto) 0 10 ^3/uL (0-0.2); Eosinophils # (auto) 0 10 ^3/uL (0-0.8); Hematocrit 42.1 % (36.0-46.0); Hemoglobin 14.1 g/dL (12.2-16.2); Lymphocytes # (auto) 0.4 10 ^3/uL (0.4-5.4); Lymphocytes % (auto) 3.4 % (10.0-50.0); Mean Corpuscular Hemoglobin 32.7 pg (28.0-32.0); Mean Corpuscular Hgb Conc. 33.5 g/dL (32.0-36.0); Mean Corpuscular Volume 97.5 fL (80.0-100.0); Monocytes # (auto) 0.6 10 ^3/uL (0-1.3); Monocytes % (auto) 4.6 % (0.0-12.0); Neutrophils # (auto) 11.9 10 ^3/uL (1.6-8.6); Nucleated Red Blood Cells % 0.1 %; Platelet Count (auto) 230 10^3/uL (140-450); Red Blood Cells 4.31 10^6/uL (4.0-5.20); Red Cell Distribution Width 16.9 % (11.8-14.3)
[2024-05-15 07:28] LABS: Calcium 9.5 mg/dL (8.7-10.4); Potassium 3.7 mmol/L (3.5-5.1); Sodium 138 mmol/L (136-145)
[2024-05-15 07:29] LABS: Anion Gap 6 (5-15); Carbon Dioxide 34 mmol/L (20-31); Chloride 98 mmol/L (98-107)
[2024-05-15 07:35] LABS: BUN/Creatinine Ratio 30.7 (10.0-20.0)
[2024-05-15 07:43] LABS: Blood Urea Nitrogen 27 mg/dL (9-23); Glucose 158 mg/dL (74-106)
[2024-05-15] MEDS: POTASSIUM CHL 20 Meq TABLET PO SCH (09:16)
[2024-05-15] MEDS ORDERED: IPRATROPIUM BROM 0.5 MG/2.5ML INH SOL ONE (13:01)
[2024-05-15] MEDS ORDERED: LEVALBUTEROL HCL 1.25 MG/3 ML NEB ONE (13:01)
--- NOTE | 2024-05-15 15:02 | DVHSR ---
APPROVED REPORT EXAM: LIMITED Two-dimensional and M-mode echocardiogram with Doppler and color Doppler. Blood Pressure: 122/60 mmHg INDICATION staph epi in blood, ? murmur RISK FACTORS Height: 50, Weight: 176 DIMENSIONS LVDd4.9 (3.8-5.7cm)LA (2D)5.6 (1.9-4.0cm)Aortic Root3.4 (2.0-3.7cm) LVDs3.5 (2.5-4.0cm)LA (MM) (1.9-4.0cm)Aortic Cusp Exc1.3 (1.5-2.0cm) EF (%) 55.0 (55-70%)Rt. Atrium5.6 (1.9-4.0cm)Asc. Aorta cm IVSd1.3 (0.7-1.1cm)RV (D) (1.8-2.4cm) PWd1.4 (0.7-1.1cm) Mitral Valve MitralMitral Stenosis E/A ratio0.02D MVAcm2 Aortic Valve Aortic ValveAortic Stenosis LVOT Diameter1.8 (1.8-2.4cm)Doppler AVAcm2 Tricuspid Valve TR Velocity2.46m/s [id number] LEFT VENTRICLE The left ventricle is of normal size. There is [id number] concentric left ventricular hypertro phy. Ejection fraction is estimated at 55%. There is no gross wall motion abnormalities but endocar dial definition is suboptimal. Diastolic function is not assessed. RIGHT VENTRICLE Not well visualized. ATRIA There is [id number] biatrial enlargement. Intra-atrial septum is not well visualized. MITRAL VALVE Not well visualized. There is no significant mitral regurgitation. PULMONIC VALVE Likely normal. TRICUSPID VALVE There is mild tricuspid regurgitation. PA systolic pressure is estimated at 40-45 mm Hg. AORTIC VALVE Trileaflet in morphology. Leaflets are mildly calcified. No evidence of significant stenosis or reg urgitation. GREAT VESSELS The aortic root is of normal size. Ascending aorta isn't visualized. PERICARDIAL EFFUSION There is avzt-[id number] pericardial effusion. IVC is of normal size and collapses normally with in spiration. Other Information Technically limited study due to body habitus and patient position. Conclusion The study is very technically limited. Normal left ventricular size and systolic function. Ejection fraction is estimated at 55%. The right ventricle is not well visualized. No evidence of hemodynamically significant valvular disease. Euybnquf-cx-pwfzrl biatrial enlargement. PA systolic pressure is estimated at 40-45 mm Hg. Small to moderate-sized pericardial effusion.
--- NOTE | 2024-05-15 15:21 | DVH ---
CHEST RADIOGRAPH Indication: COPD, pneumonia Technique: Single frontal view of the chest was obtained Comparison: XY CHEST PORTABLE on DOS: 05/09/24, XY CHEST PORTABLE on DOS: 04/07/24, XY CHEST PORTABLE on DOS: 04/04/24, XY CHEST XRAY 1 VIEW on DOS: 02/02/24, XY CHEST PORTABLE on DOS: 02/01/24 FINDINGS: Lines and Tubes: None Lungs: No focal consolidation. Pleura: No effusion. No pneumothorax. Cardiomediastinal contours: Cardiomegaly Bones: No acute osseous abnormality. IMPRESSION: No acute cardiopulmonary disease.
--- NOTE | 2024-05-15 19:52 | DVHPNRES ---
Progress Note Date Seen: May 15, 2024 Resident Creating Document: CHEN MANCERA RESIDENT Medical Necessity Reason Pt with a Central, PICC or Fol: Yes The following are medically ne: Hutchinson Catheter Subjective Review of Systems Patient seen and examined at bedside Reports that she is feeling better no difficulty breathing No chest pain, dizziness, palpitations. Objective vital signs Vital Sign Date Time Temp Pulse Resp B/P (MAP) Pulse Ox O2 Delivery O2 Flow Rate FiO2 05/15/24 17:00 98.4 60 18 122/75 (91) 95 98.4 05/15/24 14:38 Nasal Cannula* 3 32 Total Intake and Output 05/14/24 05/14/24 05/15/24 15:00 23:00 07:00 Intake Total 1150 ml 50 ml Output Total 1101 ml 750 ml Balance 49 ml -700 ml medications Current Medications Medications Dose Ordered Sig/Leonard Route Start Time Stop Time Status Last Admin Dose Admin Apixaban 5 mg BID PO 05/09/24 22:00 05/15/24 09:16 5 MG Allopurinol 300 mg DAILY PO 05/10/24 10:00 05/15/24 09:15 300 MG Aspirin 81 mg DAILY PO 05/10/24 10:00 05/15/24 09:14 81 MG Atorvastatin Calcium 40 mg HS PO 05/09/24 22:00 05/14/24 22:13 40 MG Empaglifozin 10 mg DAILY PO 05/10/24 10:00 05/15/24 09:17 10 MG Lisinopril 20 mg DAILY PO 05/10/24 10:00 05/15/24 09:17 20 MG Metoprolol Succinate 25 mg DAILY PO 05/10/24 10:00 05/15/24 09:18 25 MG Ondansetron HCl 4 mg Q4HP PRN IV 05/09/24 21:15 05/14/24 17:41 4 MG Acetaminophen 650 mg Q6HP PRN PO 05/09/24 21:15 Vancomycin HCl 0 ml @ 0 mls/hr UD IV 05/10/24 16:15 Amlodipine Besylate 5 mg DAILY PO 05/11/24 22:00 05/15/24 09:17 5 MG Ceftriaxone Sodium 50 ml @ 100 mls/hr DAILY@09 IV 05/11/24 09:00 05/15/24 09:14 100 MLS/HR Levalbuterol HCl 1.25 mg Q8HR NEB 05/10/24 22:00 05/15/24 14:31 1.25 MG Ipratropium [place] 0.5 mg Q8HR NEB 05/10/24 22:00 05/15/24 14:31 0.5 MG Pantoprazole Sodium 40 mg DAILY@0600 PO 05/11/24 06:00 05/15/24 06:05 40 MG Vancomycin HCl 250 ml @ 250 mls/hr Q18H IV 05/11/24 15:00 05/15/24 09:36 250 MLS/HR Oxycodone/ Acetaminophen 1 tab Q4HP PRN PO 05/13/24 23:00 05/15/24 09:19 1 TAB Oxycodone HCl 20 mg Q12HR PO 05/13/24 22:00 05/15/24 11:36 20 MG Potassium Chloride 20 meq DAILY PO 05/15/24 10:00 05/15/24 09:16 20 MEQ Furosemide 40 mg DAILY PO 05/16/24 10:00 Prednisone 40 mg DAILY PO 05/16/24 10:00 Examination Constitutional: Patient is alert and oriented to time, place and person and his breathing comfortably with a respiratory rate less than 20 per minute. Gen - no pallor, no icterus, no cyanosis, no clubbing, no LAD, no pitting edema . Skin - Patients skin is warm and dry.. HEENT - normocephalic, atraumatic, moist mucous membranes. Neck - full ROM, no LAD, no JVD Pulmonary - B/L equal air entry with a improved breath sounds since yesterday, no crackles or wheezing cardiovascular - normal S1,S2 heard. no murmurs heard. GI - soft abdomen without tenderness to palpation. no hepatospleenomegaly. Bowel sounds normoactive Neurological - Bilateral upper extremity strength 5/5, right lower extremity strength 3/5, left lower extremity strength 4/5, no facial droop, normal speech, no tremor, no sensory deficiets. laboratory and microbiology Laboratory Tests 05/15/24 06:34 Test 05/15/24 06:34 Range/Units Serum Glucose 158 H 74-106 mg/dL Microbiology Date/Time Source Procedure Growth Status 05/10/24 16:42 Nose MRSA Screen - Final Complete 05/09/24 17:05 Blood Blood Culture - Final Staphylococcus epidermidis Complete Problem List/Assessment/Plan Problem List/Assessment/Plan Assessment Acute on chronic hypoxic respiratory failure Acute Respiratory alkalosis Acute COPD exacerbation with suspected pneumonia ?Pneumonia likely due to ?Gram+/- ?Atypical bacteria Bacteremia with preliminary blood cultures showing gram positive cocci in clusters Hypertensive heart disease with heart failure Heart failure with mildly reduced ejection fraction Chronic pain ?Right Hip osteoarthritis Paroxysmal atrial fibrillation H/o gout Plan - Covid and influenza negative - On 3L O2 via nasal cannula - IV steroids - Duonebs q8hr - IV ceftriaxone - IV vancomycin for bacteremia - continued on home medications for HTN and HF - continue on home dose of percoset - on Eliquis 5 mg b.i.d. Patient's blood culture grew Staph epidermidis with sensitivities to multiple drugs. Repeat blood cultures pending Echo done which shows no hemodynamically significant valvular disease. DVT prophylaxis: enoxaparin PUD prophylaxis: protonix Goals of care discusses with the patient for over 21 mins. Full code Plan discussed with Plan discussed with: Patient My Orders My Orders Orders - CHEN MANCERA RESIDENT Procedure Category Date Status Time Echo 2d Mode Cardiac US 05/15/24 Resulted DOP 12:58 Chest Xray 1 View XY 05/15/24 Resulted 13:26 Furosemide Tablet PHA 05/16/24 In Process (Lasix Tablet) 10:00 Prednisone Tablet PHA 05/16/24 In Process 10:00 Complete Blood Count LAB 05/16/24 Verified 04:00 Creatinine LAB 05/16/24 Verified 04:00 Date of Service: May 15, 2024 Billing Provider: DEONDRE GLEZ MD Common Visit Codes: [id number] INP/OBS CARE(HIGH) CHEN MANCERA RESIDENT May 15, 2024 19:52 DEONDRE GLEZ MD May 16, 2024 08:59
[2024-05-16] VITALS (15 sets, daily range): BP systolic 113–141; BP diastolic 65–91; PULSE 66–95; RESP 12–18; TEMP 97.5–98.3; O2SAT 92–99
[2024-05-16 07:12] LABS: Anion Gap 7 (5-15); Basophils # (auto) 0 10 ^3/uL (0-0.2); Basophils % (auto) 0.1 % (0.0-2.0); Chloride 98 mmol/L (98-107); Eosinophils # (auto) 0 10 ^3/uL (0-0.8); Hematocrit 46.3 % (36.0-46.0); Hemoglobin 15.1 g/dL (12.2-16.2); Lymphocytes # (auto) 0.6 10 ^3/uL (0.4-5.4); Lymphocytes % (auto) 3.7 % (10.0-50.0); Mean Corpuscular Hgb Conc. 32.6 g/dL (32.0-36.0); Mean Corpuscular Volume 98.3 fL (80.0-100.0); Monocytes % (auto) 6.2 % (0.0-12.0); Neutrophils # (auto) 14.3 10 ^3/uL (1.6-8.6); Nucleated Red Blood Cells % 0.1 %; Platelet Count (auto) 262 10^3/uL (140-450); Potassium 4.1 mmol/L (3.5-5.1); Red Blood Cells 4.71 10^6/uL (4.0-5.20); White Blood Cell 15.9 10^3/uL (4.4-10.8)
[2024-05-16 07:13] LABS: Calcium 9.6 mg/dL (8.7-10.4)
[2024-05-16 07:16] LABS: Carbon Dioxide 31 mmol/L (20-31); Sodium 136 mmol/L (136-145)
[2024-05-16 07:18] LABS: BUN/Creatinine Ratio 29.6 (10.0-20.0)
[2024-05-16 07:20] LABS: Blood Urea Nitrogen 24 mg/dL (9-23); Glucose 136 mg/dL (74-106)
[2024-05-16] MEDS: predniSONE 20 MG TAB PO SCH (09:33)
[2024-05-16] MEDS: FUROSEMIDE 40 MG TAB PO SCH (09:35)
[2024-05-16] MEDS ORDERED: ONDA-155 PO (14:09)
[2024-05-16] MEDS ORDERED: AMLO1TAB22 PO (14:09)
[2024-05-16] MEDS ORDERED: EMPA1TAB PO (14:09)
[2024-05-16] MEDS ORDERED: PRED20TA2 PO ×2 (14:09→14:14)
[2024-05-16] MEDS ORDERED: CALC750C98 PO (14:09)
[2024-05-16] MEDS ORDERED: AUG875T PO (14:09)
[2024-05-16] MEDS ORDERED: ATOR40TA52 PO (14:09)
[2024-05-16] MEDS ORDERED: LISI20TA56 PO (14:09)
[2024-05-16] MEDS ORDERED: ASPI-543 PO (14:09)
[2024-05-16] MEDS ORDERED: METO25TA93 PO (14:09)
[2024-05-16] MEDS ORDERED: APIX5TAB PO (14:09)
[2024-05-16] MEDS ORDERED: UMEC1INH IN (14:13)
[2024-05-16] MEDS ORDERED: ALBU108A5 IN (14:13)
[2024-05-16] MEDS ORDERED: OXY20CRT PO (14:50)
--- NOTE | 2024-05-16 17:39 | DVHDSRES ---
Discharge Summary Date of Admission Resident Creating Document: CHEN MANCERA RESIDENT May 09, 2024 at 21:15 Date of Discharge: May 16, 2024 Admitting Diagnosis Acute on chronic respiratory failure Acute on chronic congestive heart failure Chronic kidney disease COPD Morbid obesity Wounds: none Labs/Diagnostic Data: Laboratory Results Test 05/16/24 06:33 05/14/24 06:16 05/13/24 02:05 05/12/24 06:03 White Blood Count 15.9 10^3/uL (4.4-10.8) Red Blood Count 4.71 10^6/uL (4.0-5.20) Hemoglobin 15.1 g/dL (12.2-16.2) Hematocrit 46.3 % (36.0-46.0) Mean Corpuscular Volume 98.3 fL (80.0-100.0) Mean Corpuscular Hemoglobin 32.0 pg (28.0-32.0) Mean Corpuscular Hemoglobin Concent 32.6 g/dL (32.0-36.0) Red Cell Distribution Width 17.0 % (11.8-14.3) Platelet Count 262 10^3/uL (140-450) Mean Platelet Volume 8.1 fL (6.9-10.8) Neutrophils (%) (Auto) 90.0 % (37.0-80.0) Lymphocytes (%) (Auto) 3.7 % (10.0-50.0) Monocytes (%) (Auto) 6.2 % (0.0-12.0) Eosinophils (%) (Auto) 0.0 % (0.0-7.0) Basophils (%) (Auto) 0.1 % (0.0-2.0) Neutrophils # (Auto) 14.3 10 ^3/uL (1.6-8.6) Lymphocytes # (Auto) 0.6 10 ^3/uL (0.4-5.4) Monocytes # (Auto) 1.0 10 ^3/uL (0-1.3) Eosinophils # (Auto) 0 10 ^3/uL (0-0.8) Basophils # (Auto) 0 10 ^3/uL (0-0.2) Nucleated Red Blood Cells 0.1 % Sodium Level 136 mmol/L (136-145) Potassium Level 4.1 mmol/L (3.5-5.1) Chloride Level 98 mmol/L (98-107) Carbon Dioxide Level 31 mmol/L (20-31) Anion Gap 7 (5-15) Blood Urea Nitrogen 24 mg/dL (9-23) Creatinine 0.81 mg/dL (0.550-1.02) Glomerular Filtration Rate Calc 74 mL/min (>90) BUN/Creatinine Ratio 29.6 (10.0-20.0) Serum Glucose 136 mg/dL (74-106) Calcium Level 9.6 mg/dL (8.7-10.4) Magnesium Level 2.1 mg/dL (1.6-2.6) Vancomycin Level Trough 14.6 ug/mL (5-10) Hemoglobin A1c 5.8 % A1C (<5.7) Test 05/11/24 06:06 05/10/24 16:43 05/10/24 16:42 05/10/24 06:38 Total Bilirubin 0.8 mg/dL (0.2-1.0) Aspartate Amino Transferase (AST) 19 U/L (13-40) Alanine Aminotransferase (ALT) 15 U/L (7-40) Alkaline Phosphatase 88 U/L (46-116) Total Protein 6.7 g/dL (5.7-8.2) Albumin 4.3 g/dL (3.2-4.8) Random Vancomycin Level 9.6 ug/mL (5-10) Blood Gas Specimen Type Arterial Blood Gas Sample Site Right radial Blood Gas Patient Temperature 37.0 Arterial Blood Date Drawn [id number] Arterial Blood pH 7.549 (7.350-7.450) Arterial Blood Partial Pressure CO2 28.4 mmHg (32.0-45.0) Arterial Blood Partial Pressure O2 88.1 mmHg (83.0-108.0) Arterial Blood HCO3 24.2 mmol/L (21.0-28.0) Arterial Blood Oxygen Saturation 96.9 % (94.0-98.0) Arterial Blood Base Excess 2.9 mmol/L (-2.0-3.0) Arterial Blood Oxyhemoglobin 95.5 % (94.0-98.0) Arterial Blood Carboxyhemoglobin 1.2 % (0.5-1.5) Arterial Blood Methemoglobin 0.2 % (0.0-1.5) [place] Test Yes Blood Gas Total Hemoglobin 14.30 g/dL (12.0-16.0) Blood Gas Liter Flow 4.00 Blood Gas Modality Nasal cannula FiO2 % 36.0 Blood Gas Critical Value Read Back Yes Influenza Type A Antigen Negative (Negative) Influenza Type B Antigen Negative (Negative) SARS-CoV-2 Antigen (Rapid) Negative (NEGATIVE) Vitamin B12 Level 414 pg/mL (211-911) Thyroid Stimulating Hormone (TSH) 0.18 uIU/mL (0.55-4.78) Free Thyroxine (T4) Calculated 1.18 ng/dL (0.89-1.76) Free Triiodothyronine (T3) pg/mL 3.07 pg/mL (2.3-4.2) Test 05/09/24 21:01 05/09/24 17:05 Urine Color Colorless (Yellow) Urine Clarity Clear (Clear) Urine pH 5.0 (5.0-9.0) Urine Specific [place] 1.006 (1.001-1.035) Urine Protein Negative (Negative) Urine Ketones Negative (Negative) Urine Blood Negative /uL (Negative) Urine Nitrite Negative (Negative) Urine Bilirubin Negative (Negative) Urine Urobilinogen Normal mg/dL (Negative) Urine Leukocyte Esterase Negative /uL (Negative) Urine RBC 1 /hpf (0 - 4) Urine Microscopic WBC < 1 /HPF (0-5) Urine Squamous Epithelial Cells None seen /hpf (<5) Urine Bacteria None seen /hpf (None Seen) Urine Hyaline Casts Few /lpf (0 - 2) Urine Glucose 2+ mg/dL (Normal) Troponin I High Sensitivity 9 ng/L (</=34) B-Type Natriuretic Peptide 1029.49 pg/mL (0-100) Other Laboratory Tests 05/16/24 06:33 Brief Hx & Hospital Course: Patient is a 79-year-old female with a past medical history as described below came to the ED with a chief complaint of worsening shortness of breath and cough. Patient reports that around [place] she had diarrhea and flu-like symptoms cough, congestion, malaise following which she started to have shortness of breath and worsening cough. The cough was associated with yellowish white expectoration but the patient denied fever or chills. Patient reported to be using home oxygen at 4 liter/minute. Past medical history: Cancer, asthma, AFib, chronic kidney disease, CHF, hypertension Past Surgical History:Cholecystectomy, appendectomy, hysterectomy and tonsillectomy Social history patient lives with the denies smoking, alcohol, drug use Medications: Apixaban 5 mg b.i.d., atorvastatin 40 mg, metoprolol succinate 25 mg, Jardiance 10 mg, furosemide 20 mg, lisinopril 20 mg Brief hospital course Patient with a history of COPD on home oxygen 3-4 liter/minute , was admitted to the hospital with a acute on chronic hypoxic respiratory failure with increased oxygen requirement up to 6 liters/minute. Patient was suspected to have COPD exacerbation due to pneumonia and was started on IV antibiotics. Blood cultures grew Staph epidermidis which was sensitive to multiple drugs and was started on vancomycin IV. Echocardiogram was done which did not show any evidence of hemodynamically significant valvular disease. Blood cultures were repeated which at 24 hours showed no growth. Patient's oxygen requirement decreased and she was saturating more than 90% at 3 L oxygen per minute. Patient has chronic pain due to the right hip osteoarthritis and she goes to pain management where she was being prescribed Percocet 10 mg Q 4 hours, last prescribed on 04/14 by pain management. Patient was started on a regimen of oxycodone 20 mg extended release b.i.d. in the hospital which helped her and the patient did not have episodes of increased pain. Patient was discharged to home in stable condition. Discharge plan Discharged to home and continued on health services for oxygen and physical therapy Medications: Augmentin 875 mg b.i.d. for 7 days, oxycodone 20 mg ER for 7 days, prednisone 40 mg p.o. daily, Incruse Ellipta 62.5 mcg inhaler Continued on home medications Follow up: Patient advised to follow up in the discharge clinic in 1 week Consults/Reason for consult None Operations or Procedures Echocardiogram Conclusion The study is very technically limited. Normal left ventricular size and systolic function. Ejection fraction is estimated at 55%. The right ventricle is not well visualized. No evidence of hemodynamically significant valvular disease. [id number] biatrial enlargement. PA systolic pressure is estimated at 40-45 mm Hg. Small to moderate-sized pericardial effusion. Condition at Discharge: Good Final Diagnosis/Problems List Acute on chronic hypoxic respiratory failure Acute Respiratory alkalosis Acute COPD exacerbation with suspected pneumonia ?Pneumonia likely due to ?Gram+/- ?Atypical bacteria Bacteremia with preliminary blood cultures showing gram positive cocci in clusters Hypertensive heart disease with heart failure Heart failure with mildly reduced ejection fraction Chronic pain ?Right Hip osteoarthritis Paroxysmal atrial fibrillation H/o gout Discharge Disposition: Home with Health Services Discharge Instruct/Medications Diet: Regular Activity: No Restrictions, As Tolerated Follow Up/Referral: Follow up in the discharge clinic in one week Medications: as per EMR Discharge Statement: "Patient was advised to return to the ER or call 911 if any headaches, dizziness, shortness of breath, chest pain, abdominal pain, bleeding, fevers, or worsening of medical condition. Patient was counseled about treatment plan, medications, possible side effects, patientverbalized understanding. All questions were answered to the best of my ability. This discharge took greater then 30 minutes in planning, reviewing documentation, counseling the patient, and discussing with other team members." ASSESSMENT ASSESSMENT Assessment Acute on chronic hypoxic respiratory failure Acute Respiratory alkalosis Acute COPD exacerbation with suspected pneumonia ?Pneumonia likely due to ?Gram+/- ?Atypical bacteria Bacteremia with preliminary blood cultures showing gram positive cocci in clusters Hypertensive heart disease with heart failure Heart failure with mildly reduced ejection fraction Chronic pain ?Right Hip osteoarthritis Paroxysmal atrial fibrillation H/o gout Date of Service: May 16, 2024 Billing Provider: DEONDRE GLEZ MD Common Visit Codes: [id number] DISCH DAY >30min CHEN MANCERA RESIDENT May 16, 2024 17:39 DEONDRE GLEZ MD May 17, 2024 16:42
[2024-05-17] VITALS (15 sets, daily range): BP systolic 120–134; BP diastolic 66–85; PULSE 58–88; RESP 16–20; TEMP 97.9–98.1; O2SAT 91–100
[2024-05-17 07:47] LABS: Basophils # (auto) 0 10 ^3/uL (0-0.2); Basophils % (auto) 0.1 % (0.0-2.0); Eosinophils # (auto) 0 10 ^3/uL (0-0.8); Eosinophils % (auto) 0.1 % (0.0-7.0); Hematocrit 44.6 % (36.0-46.0); Hemoglobin 14.8 g/dL (12.2-16.2); Lymphocytes # (auto) 1.2 10 ^3/uL (0.4-5.4); Lymphocytes % (auto) 7.5 % (10.0-50.0); Mean Corpuscular Hemoglobin 32.3 pg (28.0-32.0); Mean Corpuscular Hgb Conc. 33.1 g/dL (32.0-36.0); Mean Corpuscular Volume 97.6 fL (80.0-100.0); Monocytes # (auto) 1.3 10 ^3/uL (0-1.3); Monocytes % (auto) 8.1 % (0.0-12.0); Neutrophils # (auto) 13.3 10 ^3/uL (1.6-8.6); Neutrophils % (auto) 84.2 % (37.0-80.0); Platelet Count (auto) 256 10^3/uL (140-450); Red Blood Cells 4.57 10^6/uL (4.0-5.20); Red Cell Distribution Width 17.4 % (11.8-14.3); White Blood Cell 15.9 10^3/uL (4.4-10.8)
[2024-05-17] MEDS ORDERED: OXY20CRT PO (17:08)
[2024-05-17] MEDS ORDERED: NALO4SPR2 (18:40)
--- NOTE | 2024-05-17 23:26 | DVHPNRES ---
Progress Note Date Seen: May 17, 2024 Resident Creating Document: CHEN MANCERA RESIDENT Medical Necessity Reason Pt with a Central, PICC or Fol: Yes The following are medically ne: Hutchinson Catheter Subjective Review of Systems Patient seen and examined at bedside Reports that she is feeling better no difficulty breathing No chest pain, dizziness, palpitations. Objective vital signs Vital Sign Date Time Temp Pulse Resp B/P (MAP) Pulse Ox O2 Delivery O2 Flow Rate FiO2 05/17/24 22:41 88 20 99 05/17/24 22:33 Nasal Cannula* 3 32 05/17/24 21:00 98.1 120/84 (96) 98.1 Total Intake and Output 05/16/24 05/16/24 05/17/24 15:00 23:00 07:00 Intake Total 50 ml 400 ml 400 ml Output Total 2450 ml 1300 ml Balance 50 ml -2050 ml -900 ml medications Current Medications Medications Dose Ordered Sig/Leonard Route Start Time Stop Time Status Last Admin Dose Admin Apixaban 5 mg BID PO 05/09/24 22:00 05/17/24 21:47 5 MG Allopurinol 300 mg DAILY PO 05/10/24 10:00 05/17/24 10:22 300 MG Aspirin 81 mg DAILY PO 05/10/24 10:00 05/17/24 10:25 81 MG Atorvastatin Calcium 40 mg HS PO 05/09/24 22:00 05/17/24 21:47 40 MG Empaglifozin 10 mg DAILY PO 05/10/24 10:00 05/17/24 10:25 10 MG Lisinopril 20 mg DAILY PO 05/10/24 10:00 05/17/24 10:24 20 MG Metoprolol Succinate 25 mg DAILY PO 05/10/24 10:00 05/17/24 10:24 25 MG Ondansetron HCl 4 mg Q4HP PRN IV 05/09/24 21:15 05/16/24 21:29 4 MG Acetaminophen 650 mg Q6HP PRN PO 05/09/24 21:15 Amlodipine Besylate 5 mg DAILY PO 05/11/24 22:00 05/17/24 10:23 5 MG Levalbuterol HCl 1.25 mg Q8HR NEB 05/10/24 22:00 05/17/24 22:33 1.25 MG Ipratropium [place] 0.5 mg Q8HR NEB 05/10/24 22:00 05/17/24 22:33 0.5 MG Pantoprazole Sodium 40 mg DAILY@0600 PO 05/11/24 06:00 05/17/24 05:24 40 MG Oxycodone/ Acetaminophen 1 tab Q4HP PRN PO 05/13/24 23:00 05/17/24 18:40 1 TAB Oxycodone HCl 20 mg Q12HR PO 05/13/24 22:00 05/17/24 21:48 20 MG Furosemide 40 mg DAILY PO 05/16/24 10:00 05/17/24 10:23 40 MG Prednisone 40 mg DAILY PO 05/16/24 10:00 05/17/24 10:25 40 MG Examination Constitutional: Patient is alert and oriented to time, place and person and his breathing comfortably with a respiratory rate less than 20 per minute. Gen - no pallor, no icterus, no cyanosis, no clubbing, no LAD, no pitting edema . Skin - Patients skin is warm and dry.. HEENT - normocephalic, atraumatic, moist mucous membranes. Neck - full ROM, no LAD, no JVD Pulmonary - B/L equal air entry with a improved breath sounds since yesterday, no crackles or wheezing cardiovascular - normal S1,S2 heard. no murmurs heard. GI - soft abdomen without tenderness to palpation. no hepatospleenomegaly. Bowel sounds normoactive Neurological - Bilateral upper extremity strength 5/5, right lower extremity strength 3/5, left lower extremity strength 4/5, no facial droop, normal speech, no tremor, no sensory deficiets. laboratory and microbiology Laboratory Tests 05/17/24 07:00 05/16/24 06:33 Test 05/16/24 06:33 Range/Units Serum Glucose 136 H 74-106 mg/dL Microbiology Date/Time Source Procedure Growth Status 05/14/24 20:51 Blood Blood Culture - Preliminary NO GROWTH AFTER 72 HOURS OF INCUBATION. Resulted 05/10/24 16:42 Nose MRSA Screen - Final Complete Problem List/Assessment/Plan Problem List/Assessment/Plan Assessment Acute on chronic hypoxic respiratory failure Acute Respiratory alkalosis Acute COPD exacerbation with suspected pneumonia ?Pneumonia likely due to ?Gram+/- ?Atypical bacteria Bacteremia with preliminary blood cultures showing gram positive cocci in clusters Hypertensive heart disease with heart failure Heart failure with mildly reduced ejection fraction Chronic pain ?Right Hip osteoarthritis Paroxysmal atrial fibrillation H/o gout Plan - Covid and influenza negative - On 3L O2 via nasal cannula - IV steroids - Duonebs q8hr - IV ceftriaxone - IV vancomycin for bacteremia - continued on home medications for HTN and HF - continue on home dose of percoset - on Eliquis 5 mg b.i.d. Patient's blood culture grew Staph epidermidis with sensitivities to multiple drugs. Repeat blood cultures pending Echo done which shows no hemodynamically significant valvular disease. Patient was discharged yesterday but refused to go home as her pain medications were not delivered. Today pain medications delivered to bedside. IV medications discontinued. DVT prophylaxis: enoxaparin PUD prophylaxis: protonix Goals of care discusses with the patient for over 21 mins. Full code Plan discussed with Plan discussed with: Patient Date of Service: May 17, 2024 Billing Provider: DEONDRE GLEZ MD Common Visit Codes: [id number] INP/OBS CARE(HIGH) CHEN MANCERA RESIDENT May 17, 2024 23:26 DEONDRE GLEZ MD May 22, 2024 08:46
== END 2024-05-17 23:52 | disposition home health service (06) | DRG 177 ==
LOC: EDBD 16:20 → ER 16:22 → OVERFLOW 21:15 → WEST WING 05-10 00:52
PROVIDERS: ADMIT Student in an Organized Health Care Education/Training Program; ATTEND Student in an Organized Health Care Education/Training Program
DX: J15.69 Pneumonia due to other Gram-negative bacteria (principal); I50.43 Acute on chronic combined systolic (congestive) and diastolic (congestive) heart failure; J96.21 Acute and chronic respiratory failure with hypoxia; I13.0 Hypertensive heart and chronic kidney disease with heart failure and stage 1 through stage 4 chronic kidney disease, or unspecified chronic kidney disease; J44.1 Chronic obstructive pulmonary disease with (acute) exacerbation; J44.0 Chronic obstructive pulmonary disease with (acute) lower respiratory infection; E87.3 Alkalosis; R78.81 Bacteremia; E66.01 Morbid (severe) obesity due to excess calories; M16.11 Unilateral primary osteoarthritis, right hip; N18.9 Chronic kidney disease, unspecified; F03.90 Unspecified dementia, unspecified severity, without behavioral disturbance, psychotic disturbance, mood disturbance, and anxiety; I48.0 Paroxysmal atrial fibrillation; M10.9 Gout, unspecified; Z20.822 Contact with and (suspected) exposure to COVID-19; J15.9 Unspecified bacterial pneumonia; G89.29 Other chronic pain; Z90.49 Acquired absence of other specified parts of digestive tract; Z91.048 Other nonmedicinal substance allergy status; Z90.710 Acquired absence of both cervix and uterus; Z68.35 Body mass index [BMI] 35.0-35.9, adult; Z79.899 Other long term (current) drug therapy
CPT/HCPCS: 36415; 36600; 71045; 80048; 80053; 80202; 81001; 82565; 82607; 82805; 83036; 83735; 83880; 84439; 84443; 84481; 84484; 85025; 87040; 87077; 87081; 87186; 87426; 87804; 93005; 93306; 94640; 96365; 96375; 97110; 97116; 97163; 97530; 99291; G0378; J2405

== ENCOUNTER 2024-07-08 15:05 | Inpatient (IN) | payer MEDICARE, OTHER ==
[~2024-07-08] VITALS: Ht 147.3 cm; Wt 82.0 kg
[2024-07-08] MEDS: OXYCODONE W/ ACETAMINOPHEN 5/325MG TABLET PO PRN (00:05)
[~2024-07-08 15:05] MED LIST changes: +ALBU108A5 IN; -ALBU108A5 INH; -ALLO300T2 PO; +AUG875T PO; -CETI-195 PO; -FURO20TA3 PO; +NALO4SPR2; +OXY20CRT PO; +PRED20TA2 PO; +UMEC1INH IN
[2024-07-08 15:38] VITALS: PULSE 80; RESP 20; O2SAT 96
--- NOTE | 2024-07-08 15:39 | ED.PDOC ---
SOB-HPI HPI Comments 79-year-old female brought in my EMS presents with a chief complaint of SOB x worsening over the last 5 days with associated bilateral lower leg swelling and pain. Patient reports that she has been feeling increasingly SOB over the last 5 days. Patient is normally on 5L of home oxygen, but was placed on 6L/NC by EMS and is sating at 98%. Patient mentions that her legs have been swelling and has also been giving her "excruciating pain". Patient mentions that she has been complaint with her Lasix 20mg and Eliquis for her A-Fib. PMHx: CHF, A-Fib, HTN, Asthma, Breast Cancer, CKF, Dementia, chronic pain syndrome on oxycodone. PSHx: Splenectomy, Cholecystectomy, Appendectomy, Mastectomy, Hysterectomy, Ton sillectomy HPI: Poor Historian. REVIEW OF SYSTEMS: CONSTITUTIONAL: Denies acute: fever, diaphoresis, chills, generalized weakness. HEAD: Denies acute: headache, photophobia Eyes: Denies acute: Double vision, vision loss, eye pain, eye discharge. EARS: Denies acute: tinnitus, hearing loss, ear discharge, ear pain, THROAT: Denies acute: sore throat, swelling, difficulty swallowing , pain with swallowing, change in voice. NECK: Denies acute: neck pain, neck swelling, stiff neck. HEART: Denies acute : chest pain, palpitations, LUNGS: Denies acute: wheezing, cough, hemoptysis ABDOMEN: Denies acute: abdominal pain, Nausea, Vomiting, diarrhea, melena , hematemesis, hematochezia SKIN: Denies acute: rash, redness, lesions, itchiness. EXTREMITIES: Denies acute: calf pain, numbness, tingling, weakness, denies pain in extremity. Denies acute: Low back pain. Neuro: Denies acute: focal neurological deficit, motor or sensory focal neurological deficit, tremors, seizure like activity, confusion, dizziness, change in mental status, loss of bowel or bladder function, cauda equina like symptoms. : Denies acute: dysuria, hematuria, flank pain, increase in urinary frequency. PSYCH: Denies acute: hallucination, suicidal ideation, homicidal ideation. FEMALE: Denies acute: abnormal vaginal bleeding, foul odor, unusual discharge. PHYSICAL EXAM: General: no acute distress, awake and alert. Head: normocephalic, atraumatic. Neck: supple, trachea is midline, no swelling. Throat: Normal phonation. Eyes:, no erythema, no purulent discharge, no proptosis, no icterus. Heart: regular rate, regular rhythm, no significant murmur appreciated. Lungs: no apparent respiratory distress, Able to speak in full sentences. No wheezing, no rhonchi, no crackles. No stridors Clear to auscultation bilaterally. Abdomen: non tender to palpation, non distended, soft, no guarding, no rebound, + bowel sounds. obese Neuro: Awake, Alert, oriented to name, self, situation, follows commands GCS=15. Speech is normal. Skin: no petechia, no purpura, no cyanosis, non-pale, not jaundice. Lower extremities: --2/4 b/l - Pitting edema no deformity, no focal swelling, no calf TTP. Makes eye contact. moves all four extremities. Face: no apparent facial droop. ED COURSE: Chief Complaint: Shortness of Breath Time Seen by MD: 15:30 Primary Care Provider: RICCO Reviewed notes: Nurses Notes, Medications, Allergies Information Source: Patient, Emergency Med Personnel Mode of Arrival: EMS Past Medical History PAST MEDICAL HISTORY: AFIB, Asthma, Cancer, CHF, CKF, Dementia, HTN Surgical History: Appendectomy, Cholecystectomy, Hysterectomy, Tonsillectomy Surgical History (Other): Splenectomy, Mastectomy HOSE WRAPPER History: Denies all HOSE WRAPPER Hx Family History Family History: No family hx of Cancer, No family hx of DM, No family hx of HTN, No family hx ofKidney waqas, No family hx of Liver waqas, No family hx of Lung waqas, No family hx of Stroke, Family hx of heart waqas Social History Smoker: Quit Greater Than 1 Year Alcohol: Denies ETOH Use Drugs: Denies Drug Use Lives In: Home Was a procedure done? Was a procedure done?: No Differential Dx Differential Diagnosis: Other (DDx include ACS, unstable angina, anxiety, PE, pneumothroax, neoplasm, cardiac ischemia, COPD, asthma, CHF, pleural effusion, tobacco abuse, pneumonia, hypoxia, hypercapnia, anemia., infection/sepsis., pulmonary edema. Asthma, Cardiac tamponade, infection.) X-Ray, Labs, Meds, VS Vital Signs Date Time Temp Pulse Resp B/P (MAP) Pulse Ox O2 Delivery O2 Flow Rate FiO2 07/08/24 19:30 97.6 114 19 175/110 (131) 96 97.6 07/08/24 19:30 114 19 96 Nasal Cannula* 4 36 07/08/24 18:00 103 20 122/96 (105) 96 07/08/24 16:09 122/89 07/08/24 16:00 87 07/08/24 15:38 80 20 96 Nasal Cannula* 4 36 07/08/24 15:38 97.6 80 20 129/83 (98) 96 97.6 07/08/24 15:18 90 07/08/24 15:17 22 98 Nasal Cannula* 6 44 07/08/24 15:17 98 Nasal Cannula* 6 44 07/08/24 15:13 97.7 88 22 144/81 (102) 98 97.7 Lab Test 07/08/24 17:30 07/08/24 16:01 07/08/24 15:43 Range/Units Troponin I High Sensitivity 12 12 </=34 ng/L Urine Color Light-yellow Yellow Urine Clarity Clear Clear Urine pH 5.0 5.0-9.0 Urine Specific [place] 1.014 1.001-1.035 Urine Protein Negative Negative Urine Ketones Negative Negative Urine Blood Negative Negative /uL Urine Nitrite 1+ H Negative Urine Bilirubin Negative Negative Urine Urobilinogen Normal Negative mg/dL Urine Leukocyte Esterase Negative Negative /uL Urine RBC 2 0 - 4 /hpf Urine Microscopic WBC 1 0-5 /HPF Urine Squamous Epithelial Cells None seen <5 /hpf Urine Bacteria None seen None Seen /hpf Urine Yeast (Budding) Moderate None Seen /hpf Urine Glucose 4+ H Normal mg/dL White Blood Count 7.3 4.4-10.8 10^3/uL Red Blood Count 4.38 4.0-5.20 10^6/uL Hemoglobin 14.0 12.2-16.2 g/dL Hematocrit 43.1 36.0-46.0 % Mean Corpuscular Volume 98.3 80.0-100.0 fL Mean Corpuscular Hemoglobin 31.9 28.0-32.0 pg Mean Corpuscular Hemoglobin Concent 32.4 32.0-36.0 g/dL Red Cell Distribution Width 16.5 H 11.8-14.3 % Platelet Count 305 140-450 10^3/uL Mean Platelet Volume 7.9 6.9-10.8 fL Neutrophils (%) (Auto) 77.3 37.0-80.0 % Lymphocytes (%) (Auto) 13.6 10.0-50.0 % Monocytes (%) (Auto) 6.1 0.0-12.0 % Eosinophils (%) (Auto) 2.2 0.0-7.0 % Basophils (%) (Auto) 0.8 0.0-2.0 % Neutrophils # (Auto) 5.6 1.6-8.6 10 ^3/uL Lymphocytes # (Auto) 1.0 0.4-5.4 10 ^3/uL Monocytes # (Auto) 0.4 0-1.3 10 ^3/uL Eosinophils # (Auto) 0.2 0-0.8 10 ^3/uL Basophils # (Auto) 0.1 0-0.2 10 ^3/uL Nucleated Red Blood Cells 0.1 % Sodium Level 142 136-145 mmol/L Potassium Level 4.2 3.5-5.1 mmol/L Chloride Level 108 H 98-107 mmol/L Carbon Dioxide Level 24 20-31 mmol/L Anion Gap 10 5-15 Blood Urea Nitrogen 12 9-23 mg/dL Creatinine 0.78 0.550-1.02 mg/dL Glomerular Filtration Rate Calc 78 >90 mL/min BUN/Creatinine Ratio 15.4 10.0-20.0 Serum Glucose 115 H 74-106 mg/dL Lactic Acid Level 1.9 0.4-2.0 mmol/L Calcium Level 10.1 8.7-10.4 mg/dL Total Bilirubin 0.8 0.2-1.0 mg/dL Aspartate Amino Transferase (AST) 19 13-40 U/L Alanine Aminotransferase (ALT) 15 7-40 U/L Alkaline Phosphatase 97 46-116 U/L B-Type Natriuretic Peptide 948.91 0-100 pg/mL Total Protein 6.8 5.7-8.2 g/dL Albumin 4.3 3.2-4.8 g/dL Current Medications Medications (Trade) Dose Ordered Sig/Leonard Route Start Time Stop Time Status Last Admin Furosemide (Lasix Injection) 60 mg ONCE ONCE IV 07/08/24 16:00 07/08/24 16:01 DC 07/08/24 16:09 Acetaminophen/ Hydrocodone Bitart ([place]yl[place] 5/325MG Tab) 1 tab ONCE ONCE PO 07/08/24 16:15 07/08/24 16:16 DC 07/08/24 16:30 Fluconazole (Diflucan Tablet) 200 mg ONCE ONCE PO 07/08/24 17:45 07/08/24 17:49 DC 07/08/24 18:12 Ceftriaxone Sodium 50 ml @ 100 mls/hr ONCE ONCE IV 07/08/24 17:45 07/08/24 18:14 DC 07/08/24 18:12 Acetaminophen/ Hydrocodone Bitart (Bylas 5/325MG Tab) 1 tab ONCE ONCE PO 07/08/24 18:45 07/08/24 18:46 DC 07/08/24 18:43 PATIENT: SHILA LERNER LACCT: [id number]: [id number] : 1945 LOC: ER ROOM / BED: / AGE / SEX: 79 / F ADM STATUS: REG ER SERVICE 1534 ORDERING PHYSICIAN: ALEXX DAVILA DO PROCEDURE(s): CXRP - CHEST PORTABLE REASON: sob ORDER NUMBER(s): [id number], ACCESSION NUMBER(s): [id number] CHEST RADIOGRAPH Indication: sob Technique: Single frontal view of the chest was obtained COMPARISON: XY CHEST XRAY 1 VIEW on DOS: 05/15/24, XY CHEST PORTABLE on DOS: 05/09/24, XY CHEST PORTABLE on DOS: 04/07/24, XY CHEST PORTABLE on DOS: 04/04/24, XY CHEST XRAY 1 VIEW on DOS: 02/02/24 FINDINGS: Lines and Tubes: None Lungs: Congestion Pleura: No effusion. No pneumothorax. Cardiomediastinal contours: Cardiomegaly Bones: Unremarkable IMPRESSION: Vascular congestion ATED BY: MANINDER DIXON MD DICTATED DATE/TIME: 07/08/24 161 SIGNED BY: MANINDER DIXON MD SIGNED DATE/TIME: 07/08/24 161 PATIENT: SHILA LERNER ACCT: [id number]: [id number] : 1945 LOC: ER ROOM / BED: / AGE / SEX: 79 / F ADM STATUS: REG ER SERVICE 1534 ORDERING PHYSICIAN: ALEXX DAVILA DO PROCEDURE(s): BLDVT - BiLat Lower DVT REASON: swelling ORDER NUMBER(s): [id number], ACCESSION NUMBER(s): [id number] Bilateral lower extremity venous duplex Clinical History: swelling Comparison: US BILAT LOWER DVT on DOS: 02/01/24 Technique: Duplex Doppler evaluation of the deep venous systems of both lower extremities from the common femoral veins to the popliteal veins including color Doppler and spectral/pulsed waveform analysis was performed. Findings: RIGHT SIDE: The common femoral vein demonstrates appropriate compressibility and waveform variability. There is compressibility/patency of the great saphenous vein at the proximal thigh. The femoral vein demonstrates appropriate compressibility and waveform variability. The deep femoral vein demonstrates appropriate compressibility and waveform variability. The popliteal vein demonstrates appropriate compressibility and waveform variability. There is normal compressibility at the tibioperoneal trunk. LEFT SIDE: The common femoral vein demonstrates appropriate compressibility and waveform variability. There is compressibility/patency of the great saphenous vein at the proximal thigh. The femoral vein demonstrates appropriate compressibility and waveform variability. The deep femoral vein demonstrates appropriate compressibility and waveform variability. The popliteal vein demonstrates appropriate compressibility and waveform variability. There is normal compressibility at the tibioperoneal trunk. Impression: 1. No right or left femoropopliteal venous thrombosis. ATED BY: KENZIE MINAYA MD DICTATED DATE/TIME: 07/08/241908 SIGNED BY: KENZIE MINAYA MD SIGNED DATE/TIME: 07/08/241908 Time of 1ST Reevaluation: 16:00 Reevaluation 1ST: Unchanged Time of 2ND Reevaluation: 21:30 Reevaluation 2ND: Improved Patient Education/Counseling: Diagnosis, Treatment Family Education/Counseling: No Family Present Comments Patient presented with the above HPI.--respiratory----workup was initiated. patient was found with the above mentioned diagnosis. the following medications were ordered: please refer to order lists of meds and tests obtained by myself Dr. Davila. Patient ED course and VS have been stabilized. Patient has been reassessed in the ED and remained in a stable condition. Pertinent incidental findings were discussed with the patient and/or family. Patient/family voices understanding and is agreeable with plan. Patient has been observed in the ED adequate length of time to insure improvement/stability. Escalation of care considered: Consideration of escalation to observation or admission Patient was ADMITTED to the medicine team for further evaluation and treatment of their presentation. All the reports of any imaging studies that were ordered by myself were reviewed by myself. Departure 1 Departure Time of Disposition: 17:44 Impression: Primary Impression: Acute on chronic diastolic heart failure Additional Impression: Yeast UTI Disposition: ADMITTED INPATIENT Admit to: Tele Condition: Guarded Discharged With: Self Critical Care Note Critical Care Time?: Yes (35 min-critical care time only) I personally scribed for ALEXX DAVILA DO ([email or web address]) on 07/08/24 at 15:39. Electronically submitted by Yan Michael ([email or web address]). I personally scribed for ALEXX DAVILA DO ([email or web address]) on 07/08/24 at 21:23. Electronically submitted by Yan Michael ([email or web address]). ALEXX DAVILA DO Jul 08, 2024 15:39
[2024-07-08 16:04] LABS: Urine Bacteria None Seen /hpf (None Seen)
[2024-07-08 16:09] LABS: Basophils # (auto) 0.1 10 ^3/uL (0-0.2); Basophils % (auto) 0.8 % (0.0-2.0); Eosinophils # (auto) 0.2 10 ^3/uL (0-0.8); Eosinophils % (auto) 2.2 % (0.0-7.0); Hematocrit 43.1 % (36.0-46.0); Lymphocytes % (auto) 13.6 % (10.0-50.0); Mean Corpuscular Hemoglobin 31.9 pg (28.0-32.0); Mean Corpuscular Hgb Conc. 32.4 g/dL (32.0-36.0); Mean Corpuscular Volume 98.3 fL (80.0-100.0); Monocytes # (auto) 0.4 10 ^3/uL (0-1.3); Monocytes % (auto) 6.1 % (0.0-12.0); Neutrophils # (auto) 5.6 10 ^3/uL (1.6-8.6); Neutrophils % (auto) 77.3 % (37.0-80.0); Nucleated Red Blood Cells % 0.1 %; Platelet Count (auto) 305 10^3/uL (140-450); Red Blood Cells 4.38 10^6/uL (4.0-5.20); Red Cell Distribution Width 16.5 % (11.8-14.3); White Blood Cell 7.3 10^3/uL (4.4-10.8)
[2024-07-08] MEDS: FUROSEMIDE 100 MG/10ML VIAL IV ONE (16:09)
[2024-07-08 16:10] LABS: Urine Blood Negative /uL (Negative); Urine Budding Yeast MODERATE /hpf (None Seen); Urine Clarity Clear (Clear); Urine Color Light-Yellow (Yellow); Urine Protein, UAD Negative (Negative); Urine Specific Gravity 1.014 (1.001-1.035); Urine Squamous Epithelial Cell None Seen /hpf (<5); Urine Urobilinogen Normal (Negative); Urine WBC 1 /HPF (0-5)
--- NOTE | 2024-07-08 16:15 | DVH ---
CHEST RADIOGRAPH Indication: sob Technique: Single frontal view of the chest was obtained COMPARISON: XY CHEST XRAY 1 VIEW on DOS: 05/15/24, XY CHEST PORTABLE on DOS: 05/09/24, XY CHEST PORTABL E on DOS: 04/07/24, XY CHEST PORTABLE on DOS: 04/04/24, XY CHEST XRAY 1 VIEW on DOS: 02/02/24 FINDINGS: Lines and Tubes: None Lungs: Congestion Pleura: No effusion. No pneumothorax. Cardiomediastinal contours: Cardiomegaly Bones: Unremarkable IMPRESSION: Vascular congestion
[2024-07-08 16:27] LABS: Alanine Aminotransferase 15 U/L (7-40); Albumin 4.3 g/dL (3.2-4.8); Alkaline Phosphatase 97 U/L (46-116); Anion Gap 10 (5-15); Aspartate Aminotransferase 19 U/L (13-40); BUN/Creatinine Ratio 15.4 (10.0-20.0); Bilirubin, Total 0.8 mg/dL (0.2-1.0); Blood Urea Nitrogen 12 mg/dL (9-23); Calcium 10.1 mg/dL (8.7-10.4); Carbon Dioxide 24 mmol/L (20-31); Potassium 4.2 mmol/L (3.5-5.1); Sodium 142 mmol/L (136-145); Total Protein 6.8 g/dL (5.7-8.2)
[2024-07-08] MEDS: HYDROcodone-ACET 5/325MG TAB PO ONE ×2 (16:30→18:43)
[2024-07-08 16:38] LABS: Chloride 108 mmol/L (98-107); Glucose 115 mg/dL (74-106)
[2024-07-08] MEDS: cefTRIAXone 1GM/50ML D5W 50 ML IV ONE (18:12)
[2024-07-08] MEDS: FLUCONAZOLE 100 MG TAB PO ONE (18:12)
--- NOTE | 2024-07-08 19:11 | DVH ---
Bilateral lower extremity venous duplex Clinical History: swelling Comparison: US BILAT LOWER DVT on DOS: 02/01/24 Technique: Duplex Doppler evaluation of the deep venous systems of both lower extremities from the common femora l veins to the popliteal veins including color Doppler and spectral/pulsed waveform analysis was perf ormed. Findings: RIGHT SIDE: The common femoral vein demonstrates appropriate compressibility and waveform variability. There is compressibility/patency of the great saphenous vein at the proximal thigh. The femoral vein demonstrates appropriate compressibility and waveform variability. The deep femoral vein demonstrates appropriate compressibility and waveform variability. The popliteal vein demonstrates appropriate compressibility and waveform variability. There is normal compressibility at the tibioperoneal trunk. LEFT SIDE: The common femoral vein demonstrates appropriate compressibility and waveform variability. There is compressibility/patency of the great saphenous vein at the proximal thigh. The femoral vein demonstrates appropriate compressibility and waveform variability. The deep femoral vein demonstrates appropriate compressibility and waveform variability. The popliteal vein demonstrates appropriate compressibility and waveform variability. There is normal compressibility at the tibioperoneal trunk. Impression: 1. No right or left femoropopliteal venous thrombosis.
--- NOTE | 2024-07-08 19:14 | ECG ---
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
[2024-07-08 19:30] VITALS: PULSE 114; RESP 19; O2SAT 96
[2024-07-08] MEDS ORDERED: ALBUTEROL SULF 2.5 MG/0.5ML(0.5%) NEB SOLN NEB PRN (19:30)
[2024-07-08] MEDS ORDERED: ACETAMINOPHEN 325 MG TAB PO PRN (19:45)
[2024-07-08] MEDS ORDERED: MORPHINE SULFATE INJ 2 MG/ml SYRG IV PRN (19:45)
[2024-07-08] MEDS ORDERED: NITROGLYCERIN 0.4 MG SL TAB SL PRN (19:45)
--- NOTE | 2024-07-08 19:51 | DVHHP2 ---
History of Present Illness Reason for Visit: CHF exacerbation History of Present Illness This is a 79-year-old female with history of hypertension, CHF, AFib, CK F, asthma, chronic pain syndrome on oxycodone presents to ED via EMS with chief complaint of progressive shortness of breath associated with bilateral lower extremity swelling and pain x5 days. The patient is normally on 5 L home oxygen but was placed on 6 L nasal cannula by EMS as her SpO2 was less than 92%. Upon evaluation of patient, she states recent hospitalization at this facility. She states that she is compliant on taking her Lasix and Eliquis as ordered. The patient is concerned about her symptoms and would like to be further evaluated and treated. The patient will be admitted under hospitalist care to the telemetry unit for continuous monitoring. The patient denies fever, chills, headache, dizziness, palpitation, chest pain, nausea, vomiting, abdominal pain, diarrhea, constipation and other associated symptoms. The plan has been discussed with the patient and primary RN in which all questions concerns have been addressed. Cardiovascular: AFIB, CHF, HTN Pulmonary: Asthma [employer] SCRE[employer]ER: Dementia Past Medical History Chronic pain syndrome on oxycodone Past Surgical History: Appendectomy, Cholecystectomy, Hysterectomy, Tonsillectomy Past Surgical History Mastectomy Splenectomy Family History: None Smoke: No ALCOHOL: none Drugs: None Lives: with Family Domestic Violence: Neg Review of Systems Respiratory: Shortness of breath Cardiovascular: Edema (Bilateral lower extremity) Allergies: Coded Allergies: Diphenhydramine (Verified Allergy, Unknown, 09/21/22) Uncoded Allergies: TAPE (Allergy, Unknown, 09/21/22) Medications Current Medications Medications Dose Ordered Sig/Leonard Route Start Time Stop Time Status Last Admin Dose Admin Fluconazole 200 mg DAILY PO 07/09/24 10:00 Albuterol 2.5 mg Q2HPRN PRN NEB 07/08/24 19:30 Albuterol 2.5 mg Q4HR NEB 07/08/24 22:00 Ipratropium [place] 0.5 mg Q4HR NEB 07/08/24 22:00 Furosemide 20 mg DAILY IV 07/09/24 10:00 Ceftriaxone Sodium 50 ml @ 100 mls/hr DAILY@09 IV 07/09/24 09:00 Exam Vital Signs Vital Signs Date Time Temp Pulse Resp B/P (MAP) Pulse Ox O2 Delivery O2 Flow Rate FiO2 07/08/24 18:00 103 20 122/96 (105) 96 07/08/24 15:38 Nasal Cannula* 4 36 07/08/24 15:38 97.6 97.6 General Appearance: Alert, Oriented X3, Cooperative, mild distress HEENT: Atraumatic, PERRLA, Mucous membr. moist/pink Respiratory: Other (Crackles to bilateral lower lung [place]) Cardiovascular: Normal S1, Normal S2, No murmurs, Other (Atrial fibrillation) Abdominal: Normal bowel sounds, Soft, No tenderness, No hepatospenomegaly, No masses Extremities: No clubbing, No cyanosis, Normal pulses, No tenderness/swelling Neuro: Normal speech, Sensation intact, Cranial nerves 3-12 NL, Reflexes 2+ Psych/Mental Status: Mental status NL Labs/Xrays Labs Test 07/08/24 17:30 07/08/24 16:01 07/08/24 15:43 Range/Units Troponin I High Sensitivity 12 </=34 ng/L Urine Color Light-yellow Yellow Urine Clarity Clear Clear Urine pH 5.0 5.0-9.0 Urine Specific [place] 1.014 1.001-1.035 Urine Protein Negative Negative Urine Ketones Negative Negative Urine Blood Negative Negative /uL Urine Nitrite 1+ H Negative Urine Bilirubin Negative Negative Urine Urobilinogen Normal Negative mg/dL Urine Leukocyte Esterase Negative Negative /uL Urine RBC 2 0 - 4 /hpf Urine Microscopic WBC 1 0-5 /HPF Urine Squamous Epithelial Cells None seen <5 /hpf Urine Bacteria None seen None Seen /hpf Urine Yeast (Budding) Moderate None Seen /hpf Urine Glucose 4+ H Normal mg/dL White Blood Count 7.3 4.4-10.8 10^3/uL Red Blood Count 4.38 4.0-5.20 10^6/uL Hemoglobin 14.0 12.2-16.2 g/dL Hematocrit 43.1 36.0-46.0 % Mean Corpuscular Volume 98.3 80.0-100.0 fL Mean Corpuscular Hemoglobin 31.9 28.0-32.0 pg Mean Corpuscular Hemoglobin Concent 32.4 32.0-36.0 g/dL Red Cell Distribution Width 16.5 H 11.8-14.3 % Platelet Count 305 140-450 10^3/uL Mean Platelet Volume 7.9 6.9-10.8 fL Neutrophils (%) (Auto) 77.3 37.0-80.0 % Lymphocytes (%) (Auto) 13.6 10.0-50.0 % Monocytes (%) (Auto) 6.1 0.0-12.0 % Eosinophils (%) (Auto) 2.2 0.0-7.0 % Basophils (%) (Auto) 0.8 0.0-2.0 % Neutrophils # (Auto) 5.6 1.6-8.6 10 ^3/uL Lymphocytes # (Auto) 1.0 0.4-5.4 10 ^3/uL Monocytes # (Auto) 0.4 0-1.3 10 ^3/uL Eosinophils # (Auto) 0.2 0-0.8 10 ^3/uL Basophils # (Auto) 0.1 0-0.2 10 ^3/uL Nucleated Red Blood Cells 0.1 % Sodium Level 142 136-145 mmol/L Potassium Level 4.2 3.5-5.1 mmol/L Chloride Level 108 H 98-107 mmol/L Carbon Dioxide Level 24 20-31 mmol/L Anion Gap 10 5-15 Blood Urea Nitrogen 12 9-23 mg/dL Creatinine 0.78 0.550-1.02 mg/dL Glomerular Filtration Rate Calc 78 >90 mL/min BUN/Creatinine Ratio 15.4 10.0-20.0 Serum Glucose 115 H 74-106 mg/dL Lactic Acid Level 1.9 0.4-2.0 mmol/L Calcium Level 10.1 8.7-10.4 mg/dL Total Bilirubin 0.8 0.2-1.0 mg/dL Aspartate Amino Transferase (AST) 19 13-40 U/L Alanine Aminotransferase (ALT) 15 7-40 U/L Alkaline Phosphatase 97 46-116 U/L B-Type Natriuretic Peptide 948.91 0-100 pg/mL Total Protein 6.8 5.7-8.2 g/dL Albumin 4.3 3.2-4.8 g/dL ORDERING PHYSICIAN: ALEXX ADVILA DO PROCEDURE(s): BLDVT - BiLat Lower DVT REASON: swelling ORDER NUMBER(s): [id number], ACCESSION NUMBER(s): [id number] Bilateral lower extremity venous duplex Clinical History: swelling Comparison: US BILAT LOWER DVT on DOS: 02/01/24 Technique: Duplex Doppler evaluation of the deep venous systems of both lower extremities from the common femoral veins to the popliteal veins including color Doppler and spectral/pulsed waveform analysis was performed. Findings: RIGHT SIDE: The common femoral vein demonstrates appropriate compressibility and waveform variability. There is compressibility/patency of the great saphenous vein at the proximal thigh. The femoral vein demonstrates appropriate compressibility and waveform tang iability. The deep femoral vein demonstrates appropriate compressibility and waveform variability. The popliteal vein demonstrates appropriate compressibility and waveform variability. There is normal compressibility at the tibioperoneal trunk. LEFT SIDE: The common femoral vein demonstrates appropriate compressibility and waveform variability. There is compressibility/patency of the great saphenous vein at the proximal thigh. The femoral vein demonstrates appropriate compressibility and waveform va riability. The deep femoral vein demonstrates appropriate compressibility and waveform variability. The popliteal vein demonstrates appropriate compressibility and waveform variability. There is normal compressibility at the tibioperoneal trunk. Impression: 1. No right or left femoropopliteal venous thrombosis. ATED BY: KENZIE MINAYA MD DICTATED DATE/TIME: 07/08/241908 SIGNED BY: KENZIE MINAYA MD SIGNED DATE/TIME: 07/08/241908 CC: ORDERING PHYSICIAN: ALEXX DAVILA DO PROCEDURE(s): CXRP - CHEST PORTABLE REASON: sob ORDER NUMBER(s): [id number], ACCESSION NUMBER(s): [id number] CHEST RADIOGRAPH Indication: sob Technique: Single frontal view of the chest was obtained COMPARISON: XY CHEST XRAY 1 VIEW on DOS: 05/15/24, XY CHEST PORTABLE on DOS: 05/09/24, XY CHEST PORTABLE on DOS: 04/07/24, XY CHEST PORTABLE on DOS: 04/04/24, XY CHEST XRAY 1 VIEW on DOS: 02/02/24 FINDINGS: Lines and Tubes: None Lungs: Congestion Pleura: No effusion. No pneumothorax. Cardiomediastinal contours: Cardiomegaly Bones: Unremarkable IMPRESSION: Vascular congestion ATED BY: MANINDER DIXON MD DICTATED DATE/TIME: 07/08/24 1613 SIGNED BY: MANINDER DIXON MD SIGNED DATE/TIME: 07/08/24 4163 Assessment/Plan Assessment/Plan CHF exacerbation---patient presents to ED via EMS with chief complaint of shortness of breaths associated with bilateral lower extremity edema and pain x5 days Patient normally on 5 L home oxygen currently on 6 L nasal cannula Admit patient to telemetry unit for continuous monitor Reviewed CBC which is normal Troponin x2 is negative BNP 948.91 Lactic acid 1.9 Reviewed BMP which is normal Reviewed chest x-ray shows congestion Reviewed bilateral lower extremity Doppler study which is negative IV Lasix now and daily IV ceftriaxone now and daily BNP in a.m. Echocardiogram--pending We will consider to consult customs consultant if evaluation and recommendation are needed AFib Continue prescribed anti arrhythmics Continue to monitor Asthma Albuterol q.2h p.r.n. shortness of breath ABG as needed Chest x-ray in a.m. Yeast infection--urinalysis with moderate amount Fluconazole 200 mg now and daily Chronic pain syndrome Patient currently has pain management Hypertension Hydralazine 10 mg IV push q.6 p.r.n. SBP greater than 160 Continue to monitor Reconcile home meds Social consult: Please assist with home care needs as patient is unable to perform ADLs DVT prophylaxis PUD prophylaxis not indicated no history of GERD Labs in a.m. Discussed plan of care with the patient and spouse in which all questions concerns have been addressed Plan discussed with: Patient, Spouse My Orders Orders - BAHMAN GARZA [employer] LIAISON AND SPECIAL STAFF Procedure Category Date Status Time Fluconazole Tablet PHA 07/09/24 In Process (Diflucan Tablet) 10:00 Albuterol Medneb PHA 07/08/24 In Process (Ventolin Medneb) 19:30 Albuterol Medneb PHA 07/08/24 In Process (Ventolin Medneb) 22:00 Ipratropium Medneb PHA 07/08/24 In Process (Atrovent Medneb) 22:00 Furosemide Injection PHA 07/09/24 In Process (Lasix Injection) 10:00 Ceftriaxone 1gm/50ml PHA 07/09/24 In Process D5w (Rocephin) 09:00 * Accounting Administrative Assistant CONS 07/08/24 Verified Consult Admit ADMIT 07/08/24 Verified 19:39 2 Gm Sodium Diet DIET 07/09/24 Verified Breakfast Hydrocodone-Acet PHA 07/08/24 Verified 5/325mg Tab ([place] 19:45 Enoxaparin Sodium PHA 07/09/24 Verified (Lovenox) 10:00 Complete Blood Count LAB 07/09/24 Verified 04:00 Comprehensive LAB 07/09/24 Verified Metabolic Panel 04:00 Pt Request For Service PT 07/08/24 Verified 19:39 Echo 2d Mode Cardiac US 07/08/24 Verified DOP 19:39 Condition: Fair [facility] 07/08/24 Verified 19:39 Acetaminophen Tablet [facility] 07/08/24 Verified (Tylenol Tablet) 19:45 Bedrest With Bathroom [facility] 07/08/24 Verified Privileg 19:39 Morphine Sulfate [facility] 07/08/24 Verified Injection 19:45 Nitroglycerin [facility] 07/08/24 Verified Sublingual (Ntrostat 19:45 Morphine Sulfate [facility] 07/08/24 Verified Injection 19:45 Stat Ekg For Chest [facility] 07/08/24 Verified Pain 19:39 Notify Md Of Changes [facility] 07/08/24 Verified From Base 19:39 Retail Shift Supervisor For [facility] 07/08/24 Verified 24 Hours 19:39 Emergency Dysrhythmia [facility] 07/08/24 Verified Protocol 19:39 Rhythm Strips Once [facility] 07/08/24 Verified Every Shift 19:39 Oxygen By Nasal RT 07/08/24 Verified Cannula 19:39 Date of Service: Jul 08, 2024 Billing Provider: BAHMAN GARZA Common Visit Codes: [id number] INP/OBS CARE (HIGH) BAHMAN GARZA Jul 08, 2024 19:51
[2024-07-08] MEDS: MORPHINE SULFATE INJ 2 MG/ml SYRG IV PRN (20:05)
[2024-07-08] MEDS: ONDANSETRON HCL 4 MG/2 ML VIAL IV PRN (20:05)
[2024-07-08] MEDS ORDERED: APIXABAN 5 MG TAB PO SCH (22:00)
[2024-07-08] MEDS: oxyCODONE ER 20 MG TAB PO SCH (22:03)
[2024-07-08] MEDS: ALBUTEROL SULF 2.5 MG/0.5ML(0.5%) NEB SOLN NEB SCH (22:25)
[2024-07-08] MEDS: IPRATROPIUM BROM 0.5 MG/2.5ML INH SOL NEB SCH (22:25)
[2024-07-08 23:04] VITALS: BP 124/77; PULSE 114; RESP 16; TEMP 97.6; O2SAT 95
[2024-07-08] MEDS: HYDROcodone-ACET 5/325MG TAB PO PRN (23:26)
[2024-07-09] VITALS (17 sets, daily range): BP systolic 99–142; BP diastolic 51–80; PULSE 62–105; RESP 16–20; TEMP 97.4–98.3; O2SAT 93–97
[2024-07-09] MEDS ORDERED: MOME1AER8 INH (00:09)
[2024-07-09] MEDS ORDERED: FURO20TA4 PO (00:09)
[2024-07-09] MEDS ORDERED: CETI-195 PO (00:09)
[2024-07-09] MEDS ORDERED: ALLO300T2 PO (00:09)
[2024-07-09 07:18] LABS: Basophils # (auto) 0.1 10 ^3/uL (0-0.2); Basophils % (auto) 0.9 % (0.0-2.0); Eosinophils # (auto) 0.3 10 ^3/uL (0-0.8); Eosinophils % (auto) 3.9 % (0.0-7.0); Hematocrit 39.8 % (36.0-46.0); Hemoglobin 12.9 g/dL (12.2-16.2); Lymphocytes # (auto) 1.6 10 ^3/uL (0.4-5.4); Lymphocytes % (auto) 20.9 % (10.0-50.0); Mean Corpuscular Hgb Conc. 32.5 g/dL (32.0-36.0); Mean Corpuscular Volume 98.3 fL (80.0-100.0); Monocytes # (auto) 0.6 10 ^3/uL (0-1.3); Monocytes % (auto) 8.1 % (0.0-12.0); Neutrophils # (auto) 5.1 10 ^3/uL (1.6-8.6); Neutrophils % (auto) 66.2 % (37.0-80.0); Nucleated Red Blood Cells % 0.1 %; Platelet Count (auto) 280 10^3/uL (140-450); Red Blood Cells 4.05 10^6/uL (4.0-5.20); Red Cell Distribution Width 16.3 % (11.8-14.3); White Blood Cell 7.7 10^3/uL (4.4-10.8)
[2024-07-09 07:40] LABS: Alanine Aminotransferase 14 U/L (7-40); Alkaline Phosphatase 85 U/L (46-116); Anion Gap 12 (5-15); BUN/Creatinine Ratio 11.8 (10.0-20.0); Blood Urea Nitrogen 10 mg/dL (9-23); Calcium 9.6 mg/dL (8.7-10.4); Carbon Dioxide 28 mmol/L (20-31); Chloride 103 mmol/L (98-107); Sodium 143 mmol/L (136-145); Total Protein 6.4 g/dL (5.7-8.2)
[2024-07-09 07:42] LABS: Bilirubin, Total 0.6 mg/dL (0.2-1.0)
[2024-07-09 07:48] LABS: Aspartate Aminotransferase < 8 U/L (13-40); Glucose 114 mg/dL (74-106); Potassium 3.2 mmol/L (3.5-5.1)
[2024-07-09] MEDS ORDERED: POTASSIUM CHL 20MEQ/100ML 100 ML IV SCH (09:15)
[2024-07-09] MEDS: cefTRIAXone 1GM/50ML D5W 50 ML IV SCH (09:18)
[2024-07-09 09:38] LABS: Albumin 3.9 g/dL (3.2-4.8); Bilirubin, Direct 0.3 mg/dL (<0.3); Bilirubin, Total 0.6 mg/dL (0.2-1.0); Total Protein 6.4 g/dL (5.7-8.2)
[2024-07-09 09:49] LABS: INR 1.26 (0.9-1.15); Partial Thromboplastin Time 29.1 SEC (24.5-34.5); Prothrombin Time 13.1 sec (9.3-11.8)
[2024-07-09 09:51] LABS: Magnesium 1.5 mg/dL (1.6-2.6)
[2024-07-09] MEDS: ENOXAPARIN SOD 40 MG/0.4 ML SYRINGE SC SCH (10:00)
[2024-07-09] MEDS ORDERED: FUROSEMIDE 20 MG/2 ML VIAL IV SCH (10:00)
[2024-07-09] MEDS: CHOLECALCIFEROL (VITD3) 1,000UNIT=25mCg TAB PO SCH (10:11)
[2024-07-09] MEDS: EMPAGLIFLOZIN 10 MG TAB PO SCH (10:11)
[2024-07-09] MEDS: ATORVASTATIN 20 MG TAB PO SCH (10:12)
[2024-07-09] MEDS: ASPirin-EC 81 mg tab PO SCH (10:13)
[2024-07-09] MEDS: amLODIPine BESYLATE 5 MG TAB PO SCH (10:13)
[2024-07-09] MEDS: LISINOPRIL 20 MG TAB PO SCH (10:13)
[2024-07-09] MEDS: METOPROLOL SUCCINATE XL 50 MG TAB PO SCH (10:14)
[2024-07-09] MEDS: FUROSEMIDE 40 MG/4 ML VIAL IV SCH (10:14)
[2024-07-09] MEDS: FLUCONAZOLE 100 MG TAB PO SCH (10:14)
--- NOTE | 2024-07-09 10:15 | DVH ---
US CHEST ULTRASOUND, HISTORY: L effusion COMPARISON(S): None TECHNICAL DATA: Transverse and longitudinal images are obtained of the chest. FINDING: IMPRESSION(S): There is a no pleural effusion seen.
[2024-07-09] MEDS: POTASSIUM CHL 20MEQ/50ML 50 ML IV SCH (10:49)
[2024-07-09] MEDS: SODIUM CHL 0.9% 100 ML IV SCH (10:58)
--- NOTE | 2024-07-09 12:07 | DVHPNRES ---
Progress Note Date Seen: Jul 09, 2024 Resident Creating Document: DEQUAN RANDHAWA RESIDENT Medical Necessity Reason Pt with a Central, PICC or Fol: No Subjective Review of Systems Roel is 79-year-old female with past medical history of systolic congestive heart failure, now ejection fraction 55% 04/2024 , atrial fibrillation paroxysmal, COPD and asthma on 3 L home oxygen, CKD, right hip osteoarthritis on oxycodone, obesity who presented to the ER with a chief complaint of bilateral lower swelling and shortness of breaths starting 06/06. Patient reports that went out to a clinic appointment and had to sit on the chair for long hours, she does not take Lasix when she goes out of home. Later she felt like saw the and she felt short of breath, she increased her home oxygen to 5 L which did not help her and therefore she decided to come into the ER. She also reports chest pain which has been going on for the past many years, comes intermittently in his pressure-like, located in the left side but does not radiate. On arrival, patient was hypotensive, saturating 94 on 6 L oxygen, respiratory rate was 22. BNP elevated at 948. Troponins 12, 13. EKG shows sinus rhythm. Telemetry unremarkable. Chest x-ray shows bilateral congestion with cardiomegaly and possible left-sided infiltrate. Lower extremity Doppler was negative. Patient was started on IV Lasix 40 mg b.i.d. along with home medications. Last echocardiogram was 05/13 showed EF 55% with biatrial enlargement. Pulmonary artery systolic pressure 40-45. Moderate pericardial effusion. She was hospitalized at this facility on 05/16/2024 with pneumonia with a strep epi and was given IV vanc during hospital stay and p.o. Augmentin for [address]. PCP Dr. Deleon Past medical/surgical history: See above Social history: Quit smoking 30 years back, denies drinking or illicit drug use. Patient seen and examined at the bedside. Started Lasix 40 mg IV b.i.d. Objective vital signs Vital Sign Date Time Temp Pulse Resp B/P (MAP) Pulse Ox O2 Delivery O2 Flow Rate FiO2 07/09/24 11:28 74 16 122/65 07/09/24 08:58 97.4 94 97.4 07/09/24 06:08 Nasal Cannula* 4 36 Total Intake and Output 07/08/24 07/08/24 07/09/24 15:00 23:00 07:00 Intake Total 50 ml 100 ml Output Total 2100 ml 2050 ml Balance -2050 ml -1950 ml medications Current Medications Medications Dose Ordered Sig/Leonard Route Start Time Stop Time Status Last Admin Dose Admin Fluconazole 200 mg DAILY PO 07/09/24 10:00 07/09/24 10:14 200 MG Albuterol 2.5 mg Q2HPRN PRN NEB 07/08/24 19:30 Albuterol 2.5 mg Q4HR NEB 07/08/24 22:00 07/09/24 06:08 2.5 MG Ipratropium [place] 0.5 mg Q4HR NEB 07/08/24 22:00 07/09/24 06:08 0.5 MG Ceftriaxone Sodium 50 ml @ 100 mls/hr DAILY@09 IV 07/09/24 09:00 07/09/24 09:18 100 MLS/HR Acetaminophen/ Hydrocodone Bitart 1 tab Q4HP PRN PO 07/08/24 19:45 07/08/24 23:26 1 TAB Ondansetron HCl 4 mg Q4HP PRN IV 07/08/24 19:45 07/09/24 01:07 4 MG Acetaminophen 650 mg Q6HP PRN PO 07/08/24 19:45 Morphine Sulfate 2 mg Q4HPRN PRN IV 07/08/24 19:45 07/09/24 11:28 2 MG Nitroglycerin 0.4 mg Q5MINP PRN SL 07/08/24 19:45 Morphine Sulfate 2 mg Q30M PRN IV 07/08/24 19:45 Amlodipine Besylate 5 mg DAILY PO 07/09/24 10:00 07/09/24 10:13 5 MG Apixaban 5 mg BID PO 07/08/24 22:00 Hold Aspirin 81 mg DAILY PO 07/09/24 10:00 07/09/24 10:13 81 MG Empaglifozin 10 mg DAILY PO 07/09/24 10:00 07/09/24 10:11 10 MG Lisinopril 20 mg DAILY PO 07/09/24 10:00 07/09/24 10:13 20 MG Oxycodone HCl 20 mg BID PO 07/08/24 22:00 07/09/24 10:12 20 MG Atorvastatin Calcium 40 mg DAILY PO 07/09/24 10:00 07/09/24 10:12 40 MG Cholecalciferol 2,000 unit DAILY PO 07/09/24 10:00 07/09/24 10:11 2,000 UNIT Metoprolol Succinate 25 mg DAILY PO 07/09/24 10:00 07/09/24 10:14 25 MG Potassium Chloride 10 meq DAILY PO 07/09/24 13:14 Furosemide 40 mg BIDD IV 07/09/24 09:15 07/09/24 10:14 40 MG Potassium Chloride 50 ml @ 25 mls/hr Q2H IV 07/09/24 09:15 07/09/24 13:14 07/09/24 10:49 25 MLS/HR Sodium Chloride 100 ml @ 50 mls/hr Q2H IV 07/09/24 09:15 07/09/24 13:14 07/09/24 10:58 50 MLS/HR Allopurinol 300 mg DAILY PO 07/10/24 10:00 UNV Sennosides 8.6 mg HS PO 07/09/24 22:00 UNV Apixaban 5 mg BID PO 07/09/24 22:00 UNV Examination Patient lying in bed, in no acute distress General: Well-built, afebrile, palor, mucosae are moist Cardiovascular: Regular S1 and S2. No murmurs, gallops or rubs. No JVD elevation. 2+ pitting edema Respiratory: Saturating 94 on 4 L NC. Bibasilar crackles heard on auscultation. Abdomen: Soft, nontender, nondistended, normoactive bowel sounds, no rebound tenderness, no organomegaly, no masses Genitourinary: Deferred MSK/skin: Mobilizes 4 limbs. Skin is dry and warm. Patient has bilateral chronic status dermatitis changes along with bilateral 2+ pitting edema. Neurological: No motor, no sensitive deficits, normal speech. Pupils are isocoric and reactive. Psych/Mental Status: A/Ox3 laboratory and microbiology Laboratory Tests 07/09/24 06:41 Test 07/09/24 06:41 Range/Units Serum Glucose 114 H 74-106 mg/dL Labs and/or images reviewed: Labs reviewed by me, Image(s) reviewed by me Problem List/Assessment/Plan Problem List/Assessment/Plan Acute on chronic hypoxic respiratory failure Acute on chronic heart failure with preserved ejection fraction exacerbation- NYHA class 3 Paroxysmal atrial fibrillation Hypertensive heart disease without failure BNP elevated at 948 Chest x-ray shows pulmonary vascular congestion Continue Lasix 40 mg IV b.i.d. Continue aspirin 81 mg daily, amlodipine 5 mg daily, lisinopril 20 mg daily, metoprolol 25 mg daily, Jardiance 10 mg daily Continue apixaban 5 mg b.i.d. COPD-no exacerbation Continue nebulized treatments Acute cystitis UA showed 4+ glucose, 1+ nitrite and moderate yeast Continue IV ceftriaxone and fluconazole 200 mg starting 07/09 Urine bacterial culture ordered Chronic right hip pain secondary to osteoarthritis Continue home medication oxycodone Ruled out DVT lower extremity Lower extremity Doppler is unremarkable History of gout Continue allopurinol 300 mg daily Hypokalemia secondary to diuresis Hypomagnesemia Supplemented Morbid obesity Recommended physical therapy and lifestyle measures Plan discussed with patient in which all questions have been answered Goals of care discussed with patient for more than 27 minute, full code status Case discussed with Dr. Nair Plan discussed with: Patient My Orders My Orders Orders - DEQUAN RANDHAWA RESIDENT Procedure Category Date Status Time Furosemide Injection PHA 07/09/24 In Process (Lasix Injection) 09:15 Drug Screen LAB 07/09/24 Logged 09:02 Vitamin D, 25-Hydroxy LAB 07/09/24 In Process 09:02 Vitamin B12 LAB 07/09/24 In Process 09:02 Chest Ultrasound US 07/09/24 Resulted 09:04 Potassium Chl PHA 07/09/24 In Process 20meq/50ml (Potassium 09:15 Sodium Chl 0.9% PHA 07/09/24 In Process (Sodium Chloride) 09:15 Allopurinol Tablet PHA 07/09/24 Logged (Zyloprim Tablet) 11:45 Allopurinol Tablet PHA 07/10/24 Logged (Zyloprim Tablet) 10:00 Senna Pod Tablet PHA 07/09/24 Logged (Senokot Tablet) 22:00 Apixaban (Eliquis) PHA 07/09/24 Logged 22:00 Cardiac DIET 07/09/24 Transmitted Diet-2gna,Lofat,Lochol Lunch Strict I & O DEBRA 07/09/24 In Process 11:37 Pt Request For Service PT 07/09/24 Logged 11:37 Date of Service: Jul 09, 2024 Billing Provider: NAIR,PANCHO T DO Common Visit Codes: [id number] INP/OBS CARE(HIGH) DEQUAN RANDHAWA RESIDENT Jul 09, 2024 12:07 PANCHO NAIR DO Jul 10, 2024 07:03
[2024-07-09] MEDS: POTASSIUM CHL 10 Meq TABLET PO SCH (12:51)
[2024-07-09] MEDS: ALLOPURINOL 100 MG TAB PO ONE (13:12)
[2024-07-09] MEDS: APIXABAN 5 MG TAB PO ONE (13:13)
[2024-07-09] MEDS: MAGNESIUM SULFATE 1GM/100ML 100 ML IV SCH (17:56)
[2024-07-09] MEDS: IPRATROPIUM BROM 0.5 MG/2.5ML INH SOL NEB SCH (19:45)
[2024-07-09] MEDS: ALBUTEROL SULF 2.5 MG/0.5ML(0.5%) NEB SOLN NEB SCH (19:45)
[2024-07-09] MEDS: SENNA 8.6 MG TAB PO SCH (21:08)
[2024-07-09] MEDS: APIXABAN 5 MG TAB PO SCH (21:08)
[2024-07-10] VITALS (14 sets, daily range): BP systolic 103–125; BP diastolic 63–78; PULSE 66–94; RESP 14–19; TEMP 97.2–98.9; O2SAT 93–98
[2024-07-10 06:09] LABS: Basophils # (auto) 0.1 10 ^3/uL (0-0.2); Basophils % (auto) 0.7 % (0.0-2.0); Eosinophils # (auto) 0.5 10 ^3/uL (0-0.8); Eosinophils % (auto) 5.8 % (0.0-7.0); Hematocrit 41.8 % (36.0-46.0); Hemoglobin 13.9 g/dL (12.2-16.2); Lymphocytes # (auto) 1.8 10 ^3/uL (0.4-5.4); Lymphocytes % (auto) 22.6 % (10.0-50.0); Mean Corpuscular Hemoglobin 32.7 pg (28.0-32.0); Mean Corpuscular Hgb Conc. 33.3 g/dL (32.0-36.0); Mean Corpuscular Volume 98.1 fL (80.0-100.0); Monocytes # (auto) 0.7 10 ^3/uL (0-1.3); Monocytes % (auto) 8.3 % (0.0-12.0); Neutrophils % (auto) 62.6 % (37.0-80.0); Platelet Count (auto) 281 10^3/uL (140-450); Red Blood Cells 4.26 10^6/uL (4.0-5.20); White Blood Cell 7.9 10^3/uL (4.4-10.8)
[2024-07-10 06:14] LABS: Calcium 9.6 mg/dL (8.7-10.4); Chloride 99 mmol/L (98-107); Potassium 3.8 mmol/L (3.5-5.1); Sodium 142 mmol/L (136-145)
[2024-07-10 06:15] LABS: Anion Gap 8 (5-15)
[2024-07-10 06:20] LABS: BUN/Creatinine Ratio 12.8 (10.0-20.0); Blood Urea Nitrogen 12 mg/dL (9-23); Glucose 103 mg/dL (74-106); Magnesium 2.1 mg/dL (1.6-2.6)
[2024-07-10 06:40] LABS: Carbon Dioxide 35 mmol/L (20-31)
[2024-07-10] MEDS: ALLOPURINOL 100 MG TAB PO SCH (09:35)
[2024-07-10 10:45] LABS: T3 Total 1.1 ng/mL (0.60-1.81)
[2024-07-10 10:47] LABS: Free T4 (Free Thyroxine) 1.34 ng/dL (0.89-1.76)
[2024-07-10] MEDS: oxyCODONE ER 20 MG TAB PO SCH (11:52)
--- NOTE | 2024-07-10 13:59 | DVHPNRES ---
Progress Note Date Seen: Jul 10, 2024 Resident Creating Document: DEQUAN RANDHAWA RESIDENT Medical Necessity Reason Pt with a Central, PICC or Fol: No Subjective Review of Systems A 79-year-old female with past medical history of systolic congestive heart failure, now ejection fraction 55% 04/2024 , atrial fibrillation paroxysmal, COPD and asthma on 3 L home oxygen, CKD, right hip osteoarthritis on oxycodone, obesity who presented to the ER with a chief complaint of bilateral lower swelling and shortness of breaths starting 06/06. Patient reports that went out to a clinic appointment and had to sit on the chair for long hours, she does not take Lasix when she goes out of home. Later she felt like saw the and she felt short of breath, she increased her home oxygen to 5 L which did not help her and therefore she decided to come into the ER. She also reports chest pain which has been going on for the past many years, comes intermittently in his pressure- like, located in the left side but does not radiate. On arrival, patient was hypotensive, saturating 94 on 6 L oxygen, respiratory rate was 22. BNP elevated at 948. Troponins 12, 13. EKG shows sinus rhythm. Telemetry unremarkable. Chest x-ray shows bilateral congestion with cardiomegaly and possible left-sided infiltrate. Lower extremity Doppler was negative. Patient was started on IV Lasix 40 mg b.i.d. along with home medications. Last echocardiogram was 05/13 showed EF 55% with biatrial enlargement. Pulmonary artery systolic pressure 40-45. Moderate pericardial effusion. She was hospitalized at this facility on 05/16/2024 with pneumonia with a strep epi and was given IV vanc during hospital stay and p.o. Augmentin for [address]. PCP Dr. Deleon Past medical/surgical history: See above Social history: Quit smoking 30 years back, denies drinking or illicit drug use. 07/09 - Patient seen and examined at the bedside. Started Lasix 40 mg IV b.i.d. 07/10 - patient seen and examined at the bedside. Continue Lasix 40 mg IV b.i.d.. Objective vital signs Vital Sign Date Time Temp Pulse Resp B/P (MAP) Pulse Ox O2 Delivery O2 Flow Rate FiO2 07/10/24 12:55 98.7 66 18 103/68 (80) 95 98.7 07/10/24 10:07 Nasal Cannula* 4 36 Total Intake and Output 07/09/24 07/09/24 07/10/24 15:00 23:00 07:00 Intake Total 100 ml 1000 ml 300 ml Output Total 2000 ml 1350 ml Balance 100 ml -1000 ml -1050 ml medications Current Medications Medications Dose Ordered Sig/Leonard Route Start Time Stop Time Status Last Admin Dose Admin Fluconazole 200 mg DAILY PO 07/09/24 10:00 07/10/24 09:29 200 MG Albuterol 2.5 mg Q2HPRN PRN NEB 07/08/24 19:30 Ceftriaxone Sodium 50 ml @ 100 mls/hr DAILY@09 IV 07/09/24 09:00 07/10/24 09:28 100 MLS/HR Ondansetron HCl 4 mg Q4HP PRN IV 07/08/24 19:45 07/09/24 01:07 4 MG Acetaminophen 650 mg Q6HP PRN PO 07/08/24 19:45 Morphine Sulfate 2 mg Q4HPRN PRN IV 07/08/24 19:45 07/10/24 10:32 2 MG Nitroglycerin 0.4 mg Q5MINP PRN SL 07/08/24 19:45 Morphine Sulfate 2 mg Q30M PRN IV 07/08/24 19:45 Amlodipine Besylate 5 mg DAILY PO 07/09/24 10:00 07/10/24 09:31 5 MG Aspirin 81 mg DAILY PO 07/09/24 10:00 07/10/24 09:29 81 MG Empaglifozin 10 mg DAILY PO 07/09/24 10:00 07/10/24 09:30 10 MG Lisinopril 20 mg DAILY PO 07/09/24 10:00 07/10/24 09:33 20 MG Atorvastatin Calcium 40 mg DAILY PO 07/09/24 10:00 07/10/24 09:30 40 MG Cholecalciferol 2,000 unit DAILY PO 07/09/24 10:00 07/10/24 09:32 2,000 UNIT Metoprolol Succinate 25 mg DAILY PO 07/09/24 10:00 07/10/24 10:28 25 MG Potassium Chloride 10 meq DAILY PO 07/09/24 13:14 07/10/24 09:30 10 MEQ Furosemide 40 mg BIDD IV 07/09/24 09:15 07/10/24 09:38 40 MG Allopurinol 300 mg DAILY PO 07/10/24 10:00 07/10/24 09:35 300 MG Sennosides 8.6 mg HS PO 07/09/24 22:00 07/09/24 21:08 8.6 MG Apixaban 5 mg BID PO 07/09/24 22:00 07/10/24 09:29 5 MG Albuterol 2.5 mg BID NEB 07/09/24 22:00 07/10/24 10:05 2.5 MG Ipratropium [place] 0.5 mg BID NEB 07/09/24 22:00 07/10/24 10:05 0.5 MG Oxycodone HCl 20 mg Q12HR PO 07/10/24 10:00 07/10/24 11:52 20 MG Examination Patient lying in bed, in no acute distress General: Well-built, afebrile, mucosae are moist Cardiovascular: Regular S1 and S2. No murmurs, gallops or rubs. No JVD elevation. 2+ pitting edema Respiratory: Saturating 94 on 4 L NC. Bibasilar crackles heard on auscultation. Abdomen: Soft, nontender, nondistended, normoactive bowel sounds, no rebound tenderness, no organomegaly, no masses Genitourinary: Deferred MSK/skin: Mobilizes 4 limbs. Skin is dry and warm. Patient has bilateral chronic stasis dermatitis changes along with bilateral 2+ pitting edema. Neurological: No motor, no sensitive deficits, normal speech. Pupils are isocoric and reactive. Psych/Mental Status: A/Ox3 laboratory and microbiology Laboratory Tests 07/10/24 05:34 Test 07/10/24 05:34 Range/Units Serum Glucose 103 74-106 mg/dL Microbiology Date/Time Source Procedure Growth Status 07/09/24 03:20 Nose MRSA Screen - Final Complete Labs and/or images reviewed: Labs reviewed by me, Image(s) reviewed by me Problem List/Assessment/Plan Problem List/Assessment/Plan Acute on chronic hypoxic respiratory failure Acute on chronic heart failure with preserved ejection fraction exacerbation- NYHA class 3 Paroxysmal atrial fibrillation Hypertensive heart disease without failure BNP elevated at 948 Chest x-ray shows pulmonary vascular congestion Continue Lasix 40 mg IV b.i.d. Continue aspirin 81 mg daily, amlodipine 5 mg daily, lisinopril 20 mg daily, metoprolol 25 mg daily, Jardiance 10 mg daily Continue apixaban 5 mg b.i.d. COPD-no exacerbation Continue nebulized treatments Acute cystitis UA showed 4+ glucose, 1+ nitrite and moderate yeast Continue IV ceftriaxone and fluconazole 200 mg starting 07/09 Urine bacterial culture ordered Chronic right hip pain secondary to osteoarthritis Continue home medication oxycodone Ruled out DVT lower extremity Lower extremity Doppler is unremarkable History of gout Continue allopurinol 300 mg daily Hypokalemia secondary to diuresis Hypomagnesemia Supplemented Morbid obesity Recommended physical therapy and lifestyle measures Plan discussed with patient in which all questions have been answered Goals of care discussed with patient for 20 minutes, full code status Case discussed with Dr. Tejeda Plan discussed with: Patient, Other (Nurse) My Orders My Orders Orders - DEQUAN RANDHAWA Procedure Category Date Status Time Albuterol Medneb PHA 07/09/24 In Process (Ventolin Medneb) 22:00 Ipratropium Medneb PHA 07/09/24 In Process (Atrovent Medneb) 22:00 Urine Bacterial ANILA 07/09/24 Uncollected Culture 16:09 Oxycodone Er Tablet PHA 07/10/24 In Process (Oxycontin Er Tablet 10:00 * Cold Storage Worker CONS 07/10/24 Transmitted Consult Addendum Addendum Addendum I was physically present for the haywrad portions of the service provided to patient by THE RESIDENT. I have reviewed the documentation, discussed the case with resident and agree with the resident's documentation except as noted. Also the patient's clinical case was discussed with the patient's nurse. This medical document was created using an electronic medical record system with computerized dictation system. Although this document has been carefully reviewed, there might still be some phonetic and typographical errors. These areas are purely typographical due to imperfections of the software programs, and do not reflect any compromise in the patient's medical care. Late signature. Date of Service: Jul 10, 2024 Billing Provider: AGUILAR TEJEDA MD Common Visit Codes: [id number] INP/OBS CARE(HIGH) Secondary Visit Codes: [id number] CARE PLAN 30 MINUTES (20 minutes) DEQUAN RANDHAWA Jul 10, 2024 13:59 AGUILAR TEJEDA MD Jul 10, 2024 23:24
[2024-07-11] VITALS (12 sets, daily range): BP systolic 109–137; BP diastolic 61–91; PULSE 70–96; RESP 18–20; TEMP 97.7–99.5; O2SAT 92–97
[2024-07-11] MEDS: MORPHINE SULFATE 4 MG/ML SYR/VIAL IV ONE (01:40)
[2024-07-11 08:05] LABS: Anion Gap 10 (5-15); Potassium 3.5 mmol/L (3.5-5.1); Sodium 141 mmol/L (136-145)
[2024-07-11 08:07] LABS: Carbon Dioxide 37 mmol/L (20-31); Chloride 94 mmol/L (98-107)
[2024-07-11 08:11] LABS: BUN/Creatinine Ratio 14.3 (10.0-20.0); Blood Urea Nitrogen 13 mg/dL (9-23)
[2024-07-11 08:13] LABS: Glucose 111 mg/dL (74-106)
--- NOTE | 2024-07-11 18:13 | DVHPNRES ---
Progress Note Date Seen: Jul 11, 2024 Resident Creating Document: DEQUAN RANDHAWA RESIDENT Medical Necessity Reason Pt with a Central, PICC or Fol: No Subjective Review of Systems A 79-year-old female with past medical history of systolic congestive heart failure, now ejection fraction 55% 04/2024 , atrial fibrillation paroxysmal, COPD and asthma on 3 L home oxygen, CKD, right hip osteoarthritis on oxycodone, obesity who presented to the ER with a chief complaint of bilateral lower swelling and shortness of breaths starting 06/06. Patient reports that went out to a clinic appointment and had to sit on the chair for long hours, she does not take Lasix when she goes out of home. Later she felt like saw the and she felt short of breath, she increased her home oxygen to 5 L which did not help her and therefore she decided to come into the ER. She also reports chest pain which has been going on for the past many years, comes intermittently in his pressure- like, located in the left side but does not radiate. On arrival, patient was hypotensive, saturating 94 on 6 L oxygen, respiratory rate was 22. BNP elevated at 948. Troponins 12, 13. EKG shows sinus rhythm. Telemetry unremarkable. Chest x-ray shows bilateral congestion with cardiomegaly and possible left-sided infiltrate. Lower extremity Doppler was negative. Patient was started on IV Lasix 40 mg b.i.d. along with home medications. Last echocardiogram was 05/13 showed EF 55% with biatrial enlargement. Pulmonary artery systolic pressure 40-45. Moderate pericardial effusion. She was hospitalized at this facility on 05/16/2024 with pneumonia with a strep epi and was given IV vanc during hospital stay and p.o. Augmentin for [address] discharge. PCP Dr. Deleon Past medical/surgical history: See above Social history: Quit smoking 30 years back, denies drinking or illicit drug use. 07/09 - Patient seen and examined at the bedside. Started Lasix 40 mg IV b.i.d. 07/10 - patient seen and examined at the bedside. Continue Lasix 40 mg IV b.i.d.. 07/11 - patient reports feeling improved, lower extremity swelling is resolving. Objective vital signs Vital Sign Date Time Temp Pulse Resp B/P (MAP) Pulse Ox O2 Delivery O2 Flow Rate FiO2 07/11/24 17:37 111/72 07/11/24 16:26 98.6 75 18 93 98.6 07/11/24 10:00 Nasal Cannula 4.0 07/11/24 10:00 36 Total Intake and Output 07/10/24 07/10/24 07/11/24 15:00 23:00 07:00 Intake Total 50 ml 600 ml 400 ml Output Total 2800 ml 950 ml Balance 50 ml -2200 ml -550 ml medications Current Medications Medications Dose Ordered Sig/Leonard Route Start Time Stop Time Status Last Admin Dose Admin Fluconazole 200 mg DAILY PO 07/09/24 10:00 07/11/24 09:40 200 MG Albuterol 2.5 mg Q2HPRN PRN NEB 07/08/24 19:30 Ceftriaxone Sodium 50 ml @ 100 mls/hr DAILY@09 IV 07/09/24 09:00 07/11/24 09:42 100 MLS/HR Ondansetron HCl 4 mg Q4HP PRN IV 07/08/24 19:45 07/09/24 01:07 4 MG Acetaminophen 650 mg Q6HP PRN PO 07/08/24 19:45 Morphine Sulfate 2 mg Q4HPRN PRN IV 07/08/24 19:45 07/11/24 14:28 2 MG Nitroglycerin 0.4 mg Q5MINP PRN SL 07/08/24 19:45 Morphine Sulfate 2 mg Q30M PRN IV 07/08/24 19:45 Amlodipine Besylate 5 mg DAILY PO 07/09/24 10:00 07/11/24 09:41 5 MG Aspirin 81 mg DAILY PO 07/09/24 10:00 07/11/24 09:41 81 MG Empaglifozin 10 mg DAILY PO 07/09/24 10:00 07/11/24 09:42 10 MG Lisinopril 20 mg DAILY PO 07/09/24 10:00 07/11/24 09:41 20 MG Atorvastatin Calcium 40 mg DAILY PO 07/09/24 10:00 07/11/24 09:41 40 MG Cholecalciferol 2,000 unit DAILY PO 07/09/24 10:00 07/11/24 09:41 2,000 UNIT Metoprolol Succinate 25 mg DAILY PO 07/09/24 10:00 07/11/24 09:39 25 MG Potassium Chloride 10 meq DAILY PO 07/09/24 13:14 07/11/24 09:39 10 MEQ Furosemide 40 mg BIDD IV 07/09/24 09:15 07/11/24 17:37 40 MG Allopurinol 300 mg DAILY PO 07/10/24 10:00 07/11/24 09:40 300 MG Sennosides 8.6 mg HS PO 07/09/24 22:00 07/10/24 23:07 8.6 MG Apixaban 5 mg BID PO 07/09/24 22:00 07/11/24 09:40 5 MG Albuterol 2.5 mg BID NEB 07/09/24 22:00 07/11/24 06:30 2.5 MG Ipratropium [place] 0.5 mg BID NEB 07/09/24 22:00 07/11/24 06:30 0.5 MG Oxycodone HCl 20 mg Q12HR PO 07/10/24 10:00 07/11/24 09:42 20 MG Examination Patient lying in bed, in no acute distress General: Well-built, afebrile, mucosae are moist Cardiovascular: Regular S1 and S2. No murmurs, gallops or rubs. No JVD elevation. Resolving 2+ pitting edema Respiratory: Saturating 96 on 4 L NC. Bibasilar crackles heard on auscultation. Abdomen: Soft, nontender, nondistended, normoactive bowel sounds, no rebound tenderness, no organomegaly, no masses Genitourinary: Deferred MSK/skin: Mobilizes 4 limbs. Skin is dry and warm. Patient has bilateral chronic stasis dermatitis changes along with bilateral 2+ pitting edema. Neurological: No motor, no sensitive deficits, normal speech. Pupils are isocoric and reactive. Psych/Mental Status: A/Ox3 laboratory and microbiology Laboratory Tests 07/11/24 07:02 07/10/24 05:34 Test 07/11/24 07:02 Range/Units Serum Glucose 111 H 74-106 mg/dL Microbiology Date/Time Source Procedure Growth Status 07/09/24 03:20 Nose MRSA Screen - Final Complete Labs and/or images reviewed: Labs reviewed by me, Image(s) reviewed by me Problem List/Assessment/Plan Problem List/Assessment/Plan Acute on chronic hypoxic respiratory failure Acute on chronic heart failure with preserved ejection fraction exacerbation- NYHA class 3 Paroxysmal atrial fibrillation Hypertensive heart disease with failure BNP elevated at 948 Chest x-ray shows pulmonary vascular congestion Continue Lasix 40 mg IV b.i.d. Continue aspirin 81 mg daily, amlodipine 5 mg daily, lisinopril 20 mg daily, metoprolol 25 mg daily, Jardiance 10 mg daily Continue apixaban 5 mg b.i.d. COPD-not in exacerbation Continue nebulized treatments Acute cystitis UA showed 4+ glucose, 1+ nitrite and moderate yeast Continue IV ceftriaxone and fluconazole 200 mg starting 07/09 Urine bacterial culture ordered Chronic right hip pain secondary to osteoarthritis Continue home medication oxycodone Ruled out DVT lower extremity Lower extremity Doppler is unremarkable History of gout Continue allopurinol 300 mg daily Hypokalemia secondary to diuresis Hypomagnesemia Supplemented Morbid obesity Recommended physical therapy and lifestyle measures client services analyst consulted for home health for physical therapy. Plan discussed with patient in which all questions have been answered Goals of care discussed with patient, full code status Case discussed with Dr. Tejeda Plan discussed with: Patient, Other (Nurse) My Orders My Orders Orders - DEQUAN RANDHAWA RESIDENT Procedure Category Date Status Time Mrsa Screen ANILA 07/11/24 In Process 17:48 Dietary Evaluation Review Comments: Continue current plan of care Expected Outcomes/Goals: Pt will meet >75% estimated needs Fu 3-5 days Addendum Addendum Addendum I was physically present for the hayward portions of the service provided to patient by THE RESIDENT. I have reviewed the documentation, discussed the case with resident and agree with the resident's documentation except as noted. Also the patient's clinical case was discussed with the patient's nurse. This medical document was created using an electronic medical record system with computerized dictation system. Although this document has been carefully reviewed, there might still be some phonetic and typographical errors. These areas are purely typographical due to imperfections of the software programs, and do not reflect any compromise in the patient's medical care. Late signature. Date of Service: Jul 11, 2024 Billing Provider: AGUILAR TEJEDA MD Common Visit Codes: [id number] INP/OBS CARE(HIGH) DEQUAN RANDHAWA Jul 11, 2024 18:13 AGUILAR TEJEDA MD Jul 12, 2024 05:22
[2024-07-11 18:17] LABS: Amphetamine Screen, Urine Neg (NEGATIVE); Barbiturate Scree,Urine Neg (NEGATIVE); Benzodiazephine Screen, Urine Neg (NEGATIVE); Cannabinoid Screen, Urine Neg (NEGATIVE); Cocaine Screen, Urine Neg (NEGATIVE); Opiate Scree,Urine Pos (NEGATIVE); Phencyclidine Screen, Urine Neg (NEGATIVE)
[2024-07-11] MEDS: MORPHINE SULFATE 4 MG/ML SYR/VIAL IV PRN (18:44)
[2024-07-12] VITALS (11 sets, daily range): BP systolic 96–119; BP diastolic 43–67; PULSE 62–118; RESP 16–20; TEMP 98–99.9; O2SAT 92–98
[2024-07-12 06:28] LABS: Anion Gap 5 (5-15); Calcium 9.6 mg/dL (8.7-10.4); Potassium 4.2 mmol/L (3.5-5.1); Sodium 136 mmol/L (136-145)
[2024-07-12 06:34] LABS: BUN/Creatinine Ratio 18.9 (10.0-20.0); Blood Urea Nitrogen 20 mg/dL (9-23)
[2024-07-12 06:36] LABS: Carbon Dioxide 37 mmol/L (20-31); Chloride 94 mmol/L (98-107); Glucose 122 mg/dL (74-106)
[2024-07-12] MEDS: MORPHINE SULFATE INJ 2 MG/ml SYRG IV PRN (09:17)
--- NOTE | 2024-07-12 15:41 | DVHPNRES ---
Progress Note Date Seen: Jul 12, 2024 Resident Creating Document: CESAR HAYES RESIDENT Medical Necessity Reason Pt with a Central, PICC or Fol: No Subjective Review of Systems A 79-year-old female with past medical history of systolic congestive heart failure, now ejection fraction 55% 04/2024 , atrial fibrillation paroxysmal, COPD and asthma on 3 L home oxygen, CKD, right hip osteoarthritis on oxycodone, obesity who presented to the ER with a chief complaint of bilateral lower swelling and shortness of breaths starting 06/06. Patient reports that went out to a clinic appointment and had to sit on the chair for long hours, she does not take Lasix when she goes out of home. Later she felt like saw the and she felt short of breath, she increased her home oxygen to 5 L which did not help her and therefore she decided to come into the ER. She also reports chest pain which has been going on for the past many years, comes intermittently in his pressure- like, located in the left side but does not radiate. On arrival, patient was hypotensive, saturating 94 on 6 L oxygen, respiratory rate was 22. BNP elevated at 948. Troponin levels WNL 12, 13. EKG shows sinus rhythm. Telemetry unremarkable. Chest x-ray shows bilateral congestion with cardiomegaly and possible left-sided infiltrate. Lower extremity Doppler was negative. Patient was started on IV Lasix 40 mg b.i.d. along with home medications. Last echocardiogram was 05/13 showed EF 55% with biatrial enlargement. Pulmonary artery systolic pressure 40-45. Moderate pericardial effusion. She was hospitalized at this facility on 05/16/2024 with pneumonia with a strep epi and was given IV vancomycin during hospital stay and p.o. Augmentin for 7 does not discharge. PCP Dr. Deleno Past medical/surgical history: See above Social history: Quit smoking 30 years back, denies drinking or illicit drug use. 07/09 - Patient seen and examined at the bedside. Started Lasix 40 mg IV b.i.d. 07/10 - patient seen and examined at the bedside. Continue Lasix 40 mg IV b.i.d.. 07/11 - patient reports feeling improved, lower extremity swelling is resolving. : swelling is improving, but still O2 4L/min (baseline 3 L/min), continue diuresis Objective vital signs Vital Sign Date Time Temp Pulse Resp B/P (MAP) Pulse Ox O2 Delivery O2 Flow Rate FiO2 07/12/24 14:07 101 18 118/67 07/12/24 13:00 98.0 98 98.0 07/12/24 09:37 Nasal Cannula 4.0 07/12/24 09:37 36 Total Intake and Output 07/11/24 07/11/24 07/12/24 15:00 23:00 07:00 Intake Total 50 ml 820 ml 840 ml Output Total 1450 ml 850 ml Balance 50 ml -630 ml -10 ml medications Current Medications Medications Dose Ordered Sig/Leonard Route Start Time Stop Time Status Last Admin Dose Admin Fluconazole 200 mg DAILY PO 07/09/24 10:00 07/12/24 09:23 200 MG Albuterol 2.5 mg Q2HPRN PRN NEB 07/08/24 19:30 Ceftriaxone Sodium 50 ml @ 100 mls/hr DAILY@09 IV 07/09/24 09:00 07/12/24 09:27 100 MLS/HR Ondansetron HCl 4 mg Q4HP PRN IV 07/08/24 19:45 07/09/24 01:07 4 MG Acetaminophen 650 mg Q6HP PRN PO 07/08/24 19:45 Nitroglycerin 0.4 mg Q5MINP PRN SL 07/08/24 19:45 Amlodipine Besylate 5 mg DAILY PO 07/09/24 10:00 07/11/24 09:41 5 MG Aspirin 81 mg DAILY PO 07/09/24 10:00 07/12/24 09:18 81 MG Empaglifozin 10 mg DAILY PO 07/09/24 10:00 07/12/24 09:22 10 MG Lisinopril 20 mg DAILY PO 07/09/24 10:00 07/11/24 09:41 20 MG Atorvastatin Calcium 40 mg DAILY PO 07/09/24 10:00 07/12/24 09:17 40 MG Cholecalciferol 2,000 unit DAILY PO 07/09/24 10:00 07/12/24 09:21 2,000 UNIT Metoprolol Succinate 25 mg DAILY PO 07/09/24 10:00 07/11/24 09:39 25 MG Potassium Chloride 10 meq DAILY PO 07/09/24 13:14 07/12/24 09:20 10 MEQ Furosemide 40 mg BIDD IV 07/09/24 09:15 07/12/24 05:57 40 MG Allopurinol 300 mg DAILY PO 07/10/24 10:00 07/12/24 09:25 300 MG Sennosides 8.6 mg HS PO 07/09/24 22:00 07/11/24 21:35 8.6 MG Apixaban 5 mg BID PO 07/09/24 22:00 07/12/24 09:24 5 MG Albuterol 2.5 mg BID NEB 07/09/24 22:00 07/12/24 09:37 2.5 MG Ipratropium [place] 0.5 mg BID NEB 07/09/24 22:00 07/12/24 09:37 0.5 MG Oxycodone HCl 20 mg Q12HR PO 07/10/24 10:00 07/12/24 10:59 20 MG Morphine Sulfate 4 mg HSPRN PRN IV 07/11/24 18:15 07/11/24 18:44 4 MG Morphine Sulfate 2 mg Q4HPRN PRN IV 07/11/24 19:30 07/12/24 14:07 2 MG Examination Patient lying in bed, in no acute distress General: Well-built, afebrile, mucosae are moist Cardiovascular: Regular S1 and S2. No murmurs, gallops or rubs. No JVD elevation. Resolving 2+ pitting edema Respiratory: Saturating 92 on 4 L NC. Bibasilar crackles heard on auscultation. Abdomen: Soft, nontender, nondistended, normoactive bowel sounds, no rebound tenderness, no organomegaly, no masses Genitourinary: Deferred MSK/skin: Mobilizes 4 limbs. Skin is dry and warm. Patient has bilateral chronic stasis dermatitis changes along with bilateral 2+ pitting edema. Neurological: No motor, no sensitive deficits, normal speech. Pupils are isocoric and reactive. Psych/Mental Status: A/Ox3 laboratory and microbiology Laboratory Tests 07/12/24 05:10 07/10/24 05:34 Test 07/12/24 05:10 Range/Units Serum Glucose 122 H 74-106 mg/dL Microbiology Date/Time Source Procedure Growth Status 07/09/24 03:20 Nose MRSA Screen - Final Complete Labs and/or images reviewed: Labs reviewed by me, Image(s) reviewed by me Problem List/Assessment/Plan Problem List/Assessment/Plan Acute on chronic hypoxic respiratory failure Acute on chronic heart failure with preserved ejection fraction exacerbation- NYHA class 3 Paroxysmal atrial fibrillation Hypertensive heart disease with failure BNP elevated at 948 Chest x-ray shows pulmonary vascular congestion Continue Lasix 40 mg IV b.i.d. Continue aspirin 81 mg daily, amlodipine 5 mg daily, lisinopril 20 mg daily, metoprolol 25 mg daily, Jardiance 10 mg daily Continue apixaban 5 mg b.i.d. COPD-not in exacerbation Continue nebulized treatments Acute cystitis UA showed 4+ glucose, 1+ nitrite and moderate yeast Continue IV ceftriaxone and fluconazole 200 mg starting 07/09 Urine bacterial culture ordered Chronic right hip pain secondary to osteoarthritis Continue home medication oxycodone Ruled out DVT lower extremity Lower extremity Doppler is unremarkable History of gout Continue allopurinol 300 mg daily Hypokalemia secondary to diuresis Hypomagnesemia Supplemented Morbid obesity Recommended physical therapy and lifestyle measures special services coordinator consulted for physical therapy and home hospice Plan discussed with patient in which all questions have been answered Goals of care discussed with patient, full code status Case discussed with Dr. Tejeda Plan discussed with: Patient, Other (rn) My Orders My Orders Orders - CESAR HAYES RESIDENT Procedure Category Date Status Time Morphine Sulfate PHA 07/11/24 In Process Injection 19:30 * Dental Technician CONS 07/12/24 Transmitted Consult Dietary Evaluation Review Comments: Continue current plan of care Expected Outcomes/Goals: Pt will meet >75% estimated needs Fu 3-5 days Addendum Addendum Addendum I was physically present for the hayward portions of the service provided to patient by THE RESIDENT. I have reviewed the documentation, discussed the case with resident and agree with the resident's documentation except as noted. Also the patient's clinical case was discussed with the patient's nurse. This medical document was created using an electronic medical record system with computerized dictation system. Although this document has been carefully reviewed, there might still be some phonetic and typographical errors. These areas are purely typographical due to imperfections of the software programs, and do not reflect any compromise in the patient's medical care. Late signature. Date of Service: Jul 12, 2024 Billing Provider: AGUILAR TEJEDA MD Common Visit Codes: [id number] INP/OBS CARE(HIGH) CESAR HAYES Jul 12, 2024 15:41 AGUILAR TEJEDA MD Jul 13, 2024 06:43
[2024-07-12] MEDS: oxyCODONE ER 10 MG TAB PO SCH (18:00)
[2024-07-13] VITALS (10 sets, daily range): BP systolic 96–122; BP diastolic 46–71; PULSE 61–136; RESP 16–20; TEMP 97.9–99.2; O2SAT 91–95
[2024-07-13 07:30] LABS: Basophils # (auto) 0 10 ^3/uL (0-0.2); Basophils % (auto) 0.2 % (0.0-2.0); Eosinophils # (auto) 0 10 ^3/uL (0-0.8); Eosinophils % (auto) 0.1 % (0.0-7.0); Hematocrit 40.6 % (36.0-46.0); Hemoglobin 13.8 g/dL (12.2-16.2); Lymphocytes # (auto) 1.2 10 ^3/uL (0.4-5.4); Lymphocytes % (auto) 7.3 % (10.0-50.0); Mean Corpuscular Hemoglobin 32.8 pg (28.0-32.0); Mean Corpuscular Hgb Conc. 33.9 g/dL (32.0-36.0); Mean Corpuscular Volume 96.8 fL (80.0-100.0); Monocytes # (auto) 1.2 10 ^3/uL (0-1.3); Monocytes % (auto) 7.3 % (0.0-12.0); Neutrophils # (auto) 14.4 10 ^3/uL (1.6-8.6); Neutrophils % (auto) 85.1 % (37.0-80.0); Nucleated Red Blood Cells % 0.1 %; Platelet Count (auto) 258 10^3/uL (140-450); Red Blood Cells 4.19 10^6/uL (4.0-5.20); Red Cell Distribution Width 15.9 % (11.8-14.3); White Blood Cell 16.9 10^3/uL (4.4-10.8)
[2024-07-13 07:42] LABS: Albumin 3.9 g/dL (3.2-4.8); Alkaline Phosphatase 80 U/L (46-116); Anion Gap 8 (5-15); Aspartate Aminotransferase 19 U/L (13-40); BUN/Creatinine Ratio 29.6 (10.0-20.0); Calcium 9.7 mg/dL (8.7-10.4); Potassium 3.8 mmol/L (3.5-5.1); Total Protein 6.6 g/dL (5.7-8.2)
[2024-07-13 07:45] LABS: Alanine Aminotransferase < 9 U/L (7-40); Blood Urea Nitrogen 29 mg/dL (9-23); Carbon Dioxide 34 mmol/L (20-31); Chloride 93 mmol/L (98-107); Glucose 126 mg/dL (74-106); Sodium 135 mmol/L (136-145)
--- NOTE | 2024-07-13 10:33 | DVHPNRES ---
Progress Note Date Seen: Jul 13, 2024 Resident Creating Document: CESAR HAYES RESIDENT Medical Necessity Reason Pt with a Central, PICC or Fol: No Subjective Review of Systems A 79-year-old female with past medical history of systolic congestive heart failure, now ejection fraction 55% 04/2024 , atrial fibrillation paroxysmal, COPD and asthma on 3 L home oxygen, CKD, right hip osteoarthritis on oxycodone, obesity who presented to the ER with a chief complaint of bilateral lower swelling and shortness of breaths starting 06/06. Patient reports that went out to a clinic appointment and had to sit on the chair for long hours, she does not take Lasix when she goes out of home. Later she felt like saw the and she felt short of breath, she increased her home oxygen to 5 L which did not help her and therefore she decided to come into the ER. She also reports chest pain which has been going on for the past many years, comes intermittently in his pressure- like, located in the left side but does not radiate. On arrival, patient was hypotensive, saturating 94 on 6 L oxygen, respiratory rate was 22. BNP elevated at 948. Troponin levels WNL 12, 13. EKG shows sinus rhythm. Telemetry unremarkable. Chest x-ray shows bilateral congestion with cardiomegaly and possible left-sided infiltrate. Lower extremity Doppler was negative. Patient was started on IV Lasix 40 mg b.i.d. along with home medications. Last echocardiogram was 05/13 showed EF 55% with biatrial enlargement. Pulmonary artery systolic pressure 40-45. Moderate pericardial effusion. She was hospitalized at this facility on 05/16/2024 with pneumonia with a strep epi and was given IV vancomycin during hospital stay and p.o. Augmentin for [address] discharge. PCP Dr. Deleon Past medical/surgical history: See above Social history: Quit smoking 30 years back, denies drinking or illicit drug use. 07/09 - Patient seen and examined at the bedside. Started Lasix 40 mg IV b.i.d. 07/10 - patient seen and examined at the bedside. Continue Lasix 40 mg IV b.i.d.. 07/11 - patient reports feeling improved, lower extremity swelling is resolving. : swelling is improving, but still O2 4L/min (baseline 3 L/min), continue diuresis 07/13: WBC trending up; UA now with LE+ more WBC, stop ceftriaxone, start Zosyn, furosemide daily no BID Objective vital signs Vital Sign Date Time Temp Pulse Resp B/P (MAP) Pulse Ox O2 Delivery O2 Flow Rate FiO2 07/13/24 10:17 74 108/57 07/13/24 09:17 16 07/13/24 08:09 98.3 92 98.3 07/12/24 22:11 Nasal Cannula 4.0 07/12/24 22:11 36 Total Intake and Output 07/12/24 07/12/24 07/13/24 15:00 23:00 07:00 Intake Total 50 ml 200 ml 360 ml Output Total 375 ml 400 ml Balance 50 ml -175 ml -40 ml medications Current Medications Medications Dose Ordered Sig/Leonard Route Start Time Stop Time Status Last Admin Dose Admin Fluconazole 200 mg DAILY PO 07/09/24 10:00 07/13/24 10:15 200 MG Albuterol 2.5 mg Q2HPRN PRN NEB 07/08/24 19:30 Ceftriaxone Sodium 50 ml @ 100 mls/hr DAILY@09 IV 07/09/24 09:00 07/13/24 09:17 100 MLS/HR Ondansetron HCl 4 mg Q4HP PRN IV 07/08/24 19:45 07/09/24 01:07 4 MG Acetaminophen 650 mg Q6HP PRN PO 07/08/24 19:45 Nitroglycerin 0.4 mg Q5MINP PRN SL 07/08/24 19:45 Amlodipine Besylate 5 mg DAILY PO 07/09/24 10:00 07/13/24 10:16 5 MG Aspirin 81 mg DAILY PO 07/09/24 10:00 07/13/24 10:16 81 MG Empaglifozin 10 mg DAILY PO 07/09/24 10:00 07/13/24 10:17 10 MG Lisinopril 20 mg DAILY PO 07/09/24 10:00 07/13/24 10:17 20 MG Atorvastatin Calcium 40 mg DAILY PO 07/09/24 10:00 07/13/24 10:17 40 MG Cholecalciferol 2,000 unit DAILY PO 07/09/24 10:00 07/13/24 10:16 2,000 UNIT Metoprolol Succinate 25 mg DAILY PO 07/09/24 10:00 07/13/24 10:17 25 MG Potassium Chloride 10 meq DAILY PO 07/09/24 13:14 07/13/24 10:16 10 MEQ Allopurinol 300 mg DAILY PO 07/10/24 10:00 07/13/24 10:16 300 MG Sennosides 8.6 mg HS PO 07/09/24 22:00 07/12/24 21:19 8.6 MG Apixaban 5 mg BID PO 07/09/24 22:00 07/13/24 10:17 5 MG Albuterol 2.5 mg BID NEB 07/09/24 22:00 07/12/24 22:11 2.5 MG Ipratropium [place] 0.5 mg BID NEB 07/09/24 22:00 07/12/24 22:11 0.5 MG Morphine Sulfate 4 mg HSPRN PRN IV 07/11/24 18:15 07/11/24 18:44 4 MG Morphine Sulfate 2 mg Q4HPRN PRN IV 07/11/24 19:30 07/13/24 09:17 2 MG Oxycodone HCl 10 mg Q6HR PO 07/12/24 18:00 07/13/24 00:36 10 MG Furosemide 40 mg DAILY IV 07/13/24 22:00 Examination Patient lying in bed, in no acute distress General: Well-built, afebrile, mucosae are moist Cardiovascular: Regular S1 and S2. No murmurs, gallops or rubs. No JVD elevation. Respiratory: Saturating 92 on 4 L NC. Bibasilar crackles heard on auscultation. (less than yesterday) Abdomen: Soft, nontender, nondistended, normoactive bowel sounds, no rebound tenderness, no organomegaly, no masses Genitourinary: Deferred MSK/skin: Mobilizes 4 limbs. Skin is dry and warm. Patient has bilateral chronic stasis dermatitis changes along with bilateral 1+ pitting edema (improving). Neurological: No motor, no sensitive deficits, normal speech. Pupils are isocoric and reactive. Psych/Mental Status: A/Ox3 laboratory and microbiology Laboratory Tests 07/13/24 05:49 Test 07/13/24 05:49 Range/Units Serum Glucose 126 H 74-106 mg/dL Microbiology Date/Time Source Procedure Growth Status 07/11/24 17:48 Nose MRSA Screen - Final Complete Labs and/or images reviewed: Labs reviewed by me, Image(s) reviewed by me Problem List/Assessment/Plan Problem List/Assessment/Plan Acute on chronic hypoxic respiratory failure Acute on chronic heart failure with preserved ejection fraction exacerbation- NYHA class 3 Paroxysmal atrial fibrillation Hypertensive heart disease with failure BNP elevated at 948 Chest x-ray shows pulmonary vascular congestion Continue Lasix 40 mg IV daily: x ray today still showing congestion but BP are soft.hold on in BP meds Continue aspirin 81 mg daily, amlodipine 5 mg daily, lisinopril 20 mg daily, metoprolol 25 mg daily, Jardiance 10 mg daily Continue apixaban 5 mg b.i.d. COPD possible exacerbation New leukocytosis; possible pneumonia? Continue nebulized treatments Start azithromycin Start Zosyn Possible sepsis Acute cystitis UA showed LE+ and elevated white blood cells count Started Zosyn and fluconazole 200 mg starting 07/09 Urine bacterial culture reordered Chronic right hip pain secondary to osteoarthritis Continue home medication oxycodone Ruled out DVT lower extremity Lower extremity Doppler is unremarkable History of gout Continue allopurinol 300 mg daily Hypokalemia secondary to diuresis Hypomagnesemia Supplemented Morbid obesity Recommended physical therapy and lifestyle measures services delivery driver consulted for physical therapy and home hospice Plan discussed with patient in which all questions have been answered Case discussed with Dr. Tejeda Plan discussed with: Patient, Other (RN) My Orders My Orders Orders - CESAR HAYES RESIDENT Procedure Category Date Status Time * Mechanical Engineering Advisor CONS 07/12/24 Transmitted Consult Oxycodone Er Tablet PHA 07/12/24 In Process (Oxycontin Er Tablet 18:00 C-Reactive Protein LAB 07/13/24 In Process 08:21 Furosemide Injection PHA 07/13/24 In Process (Lasix Injection) 22:00 Chest Xray 1 View XY 07/13/24 Logged 08:58 Blood Culture ANILA 07/13/24 In Process 08:58 Urinalysis LAB 07/13/24 Logged 09:00 Urine Bacterial ANILA 07/13/24 Uncollected Culture 09:00 Dietary Evaluation Review Comments: Continue current plan of care Expected Outcomes/Goals: Pt will meet >75% estimated needs Fu 3-5 days Addendum Addendum Addendum I was physically present for the hayward portions of the service provided to patient by THE RESIDENT. I have reviewed the documentation, discussed the case with resident and agree with the resident's documentation except as noted. Also the patient's clinical case was discussed with the patient's nurse. This medical document was created using an electronic medical record system with computerized dictation system. Although this document has been carefully reviewed, there might still be some phonetic and typographical errors. These areas are purely typographical due to imperfections of the software programs, and do not reflect any compromise in the patient's medical care. Late signature. Date of Service: Jul 13, 2024 Billing Provider: AGUILAR TEJEDA MD Common Visit Codes: [id number] INP/OBS CARE(HIGH) CESAR HAYES Jul 13, 2024 10:33 AGUILAR TEJEDA MD Jul 14, 2024 05:08
[2024-07-13 10:42] LABS: Urine Bacteria None Seen /hpf (None Seen)
[2024-07-13 11:06] LABS: Urine Blood 2+ /uL (Negative); Urine Budding Yeast MANY /hpf (None Seen); Urine Clarity Turbid (Clear); Urine Color Light-Orange (Yellow); Urine Hyaline Cast FEW /lpf (0 - 2); Urine Mucus FEW (None Seen); Urine Protein, UAD 1+ (Negative); Urine Specific Gravity 1.022 (1.001-1.035); Urine Squamous Epithelial Cell FEW /hpf (<5); Urine Urobilinogen Normal (Negative); Urine WBC 29 /HPF (0-5); Urine pH 5.5 (5.0-9.0)
--- NOTE | 2024-07-13 12:07 | DVH ---
CHEST RADIOGRAPH Indication: dyspnea Technique: Single frontal view of the chest was obtained COMPARISON: XY CHEST PORTABLE on DOS: 07/08/24, XY CHEST XRAY 1 VIEW on DOS: 05/15/24, XY CHEST PORTABL E on DOS: 05/09/24, XY CHEST PORTABLE on DOS: 04/07/24, XY CHEST PORTABLE on DOS: 04/04/24 FINDINGS: Lines and Tubes: None Lungs: Congestion Pleura: No effusion. No pneumothorax. Cardiomediastinal contours: Cardiomegaly Bones: Unremarkable IMPRESSION: Cardiomegaly and mild congestion.
[2024-07-13] MEDS: PIPERACILLIN-TAZOB 3.375GM 100 ML IV SCH (18:22)
[2024-07-13] MEDS: FUROSEMIDE 40 MG/4 ML VIAL IV SCH (22:00)
[2024-07-13] MEDS: AZITHROMYCIN 500MG/ 250ML 250 ML IV ONE (22:50)
[2024-07-14] VITALS (13 sets, daily range): BP systolic 95–105; BP diastolic 51–63; PULSE 20–108; RESP 16–20; TEMP 83–98.3; O2SAT 92–96
[2024-07-14 07:07] LABS: Alanine Aminotransferase 32 U/L (7-40); Albumin 3.8 g/dL (3.2-4.8); Anion Gap 10 (5-15); BUN/Creatinine Ratio 31.5 (10.0-20.0); Calcium 9.7 mg/dL (8.7-10.4); Total Protein 6.5 g/dL (5.7-8.2)
[2024-07-14 07:08] LABS: Alkaline Phosphatase 131 U/L (46-116); Aspartate Aminotransferase 72 U/L (13-40); Blood Urea Nitrogen 34 mg/dL (9-23); Carbon Dioxide 33 mmol/L (20-31); Chloride 92 mmol/L (98-107); Glucose 114 mg/dL (74-106); Potassium 3.3 mmol/L (3.5-5.1); Sodium 135 mmol/L (136-145)
[2024-07-14 07:23] LABS: Basophils # (auto) 0.1 10 ^3/uL (0-0.2); Basophils % (auto) 0.5 % (0.0-2.0); Eosinophils # (auto) 0.3 10 ^3/uL (0-0.8); Hematocrit 40.2 % (36.0-46.0); Lymphocytes # (auto) 1.5 10 ^3/uL (0.4-5.4); Lymphocytes % (auto) 10.1 % (10.0-50.0); Mean Corpuscular Hemoglobin 32.2 pg (28.0-32.0); Mean Corpuscular Hgb Conc. 32.5 g/dL (32.0-36.0); Mean Corpuscular Volume 99.2 fL (80.0-100.0); Monocytes # (auto) 1.1 10 ^3/uL (0-1.3); Monocytes % (auto) 7.5 % (0.0-12.0); Neutrophils # (auto) 11.8 10 ^3/uL (1.6-8.6); Neutrophils % (auto) 79.9 % (37.0-80.0); Platelet Count (auto) 261 10^3/uL (140-450); Red Blood Cells 4.05 10^6/uL (4.0-5.20); White Blood Cell 14.8 10^3/uL (4.4-10.8)
[2024-07-14] MEDS: POTASSIUM CHLORIDE 40 MEQ, LIDOCAINE 1% (LOCAL ANESTH.) 4 ML in SODIUM CHL 0.9% 250 ML IV ONE (14:00)
--- NOTE | 2024-07-14 16:11 | DVH ---
RIGHT Upper Extremity Venous Duplex Clinical History: RUE PAIN Comparison: None Findings: Duplex Doppler evaluation of the venous system of the RIGHT lower neck and upper extremity including color Doppler and spectral/pulsed waveform analysis was performed. The internal jugular vein demonstrates appropriate compressibility and waveform variability. The subclavian vein is patent on color Doppler evaluation without intraluminal thrombus and demonstra karina waveform variability. The visualized portion of the brachiocephalic vein is patent on color Doppler evaluation without intr aluminal thrombus and demonstrates waveform variability. The axillary vein demonstrates appropriate compressibility and waveform variability. The brachial veins demonstrate appropriate compressibility and patency on Doppler evaluation. The basilic vein demonstrates appropriate compressibility and patency on Doppler evaluation. The cephalic vein demonstrates appropriate compressibility and patency on Doppler evaluation. Impression: No venous thrombus identified in the RIGHT upper extremity vessels evaluated above. If clinical concern/symptoms persist or worsen, short-interval follow-up study is suggested.
--- NOTE | 2024-07-14 16:49 | DVH ---
EXAM: CT HEAD WITHOUT CONTRAST HISTORY: arm weakness COMPARISON: CT HEAD WITHOUT CONTRAST on DOS: 09/21/22 TECHNIQUE: Axial images of the head were obtained and reformatted in coronal and sagittal planes. All CT scans at this medical facility are performed using dose modulation techniques as appropriate t o a performed exam including the following: Automated exposure control was utilized; adjustment of th e MA and/or KV according to patient size; and use of iterative reconstruction technique. CT Dose: CTDI volume is 66.93 mGy. Dose-length product is 1184.49 mGy*cm FINDINGS: There is no evidence of acute intracranial hemorrhage, mass, mass effect midline shift. There is no h ydrocephalus or extra-axial fluid collection. Joshua-white matter differentiation is maintained. The visualized paranasal sinuses and mastoid air cells are clear. The calvarium is intact. IMPRESSION: 1. No acute intracranial process. HS:Y
--- NOTE | 2024-07-14 22:05 | DVHPNRES ---
Progress Note Date Seen: Jul 14, 2024 Resident Creating Document: CESAR HAYES RESIDENT Medical Necessity Reason Pt with a Central, PICC or Fol: No Subjective Review of Systems A 79-year-old female with past medical history of systolic congestive heart failure, now ejection fraction 55% 04/2024 , atrial fibrillation paroxysmal, COPD and asthma on 3 L home oxygen, CKD, right hip osteoarthritis on oxycodone, obesity who presented to the ER with a chief complaint of bilateral lower swelling and shortness of breaths starting 06/06. Patient reports that went out to a clinic appointment and had to sit on the chair for long hours, she does not take Lasix when she goes out of home. Later she felt like saw the and she felt short of breath, she increased her home oxygen to 5 L which did not help her and therefore she decided to come into the ER. She also reports chest pain which has been going on for the past many years, comes intermittently in his pressure- like, located in the left side but does not radiate. /On arrival, patient was hypotensive, saturating 94 on 6 L oxygen, respiratory rate was 22. BNP elevated at 948. Troponin levels WNL 12, 13. EKG shows sinus rhythm. Telemetry unremarkable. Chest x-ray shows bilateral congestion with cardiomegaly and possible left-sided infiltrate. Lower extremity Doppler was negative. Patient was started on IV Lasix 40 mg b.i.d. along with home medications. Last echocardiogram was 05/13 showed EF 55% with biatrial enlargement. Pulmonary artery systolic pressure 40-45. Moderate pericardial effusion. She was hospitalized at this facility on 05/16/2024 with pneumonia with a staph epi and was given IV vancomycin during hospital stay and p.o. Augmentin for [address] Deleon Past medical/surgical history: See above Social history: Quit smoking 30 years back, denies drinking or illicit drug use. 07/09 - Patient seen and examined at the bedside. Started Lasix 40 mg IV b.i.d. 07/10 - patient seen and examined at the bedside. Continue Lasix 40 mg IV b.i.d.. 07/11 - patient reports feeling improved, lower extremity swelling is resolving. : swelling is improving, but still O2 4L/min (baseline 3 L/min), continue diuresis 07/13: WBC trending up; UA now with LE+ more WBC, stop ceftriaxone, start Zosyn and azithromycin, furosemide daily not BID 07/14: WBC trending down, today the patient complained about weakness in her right hand Objective vital signs Vital Sign Date Time Temp Pulse Resp B/P (MAP) Pulse Ox O2 Delivery O2 Flow Rate FiO2 07/14/24 16:42 97.9 85 16 102/58 (73) 92 97.9 07/14/24 10:00 Nasal Cannula 4.0 07/14/24 10:00 36 Total Intake and Output 07/13/24 07/13/24 07/14/24 15:00 23:00 07:00 Intake Total 300 ml 950 ml Output Total 175 ml 1175 ml Balance 125 ml -225 ml medications Current Medications Medications Dose Ordered Sig/Leonard Route Start Time Stop Time Status Last Admin Dose Admin Fluconazole 200 mg DAILY PO 07/09/24 10:00 07/14/24 09:57 200 MG Albuterol 2.5 mg Q2HPRN PRN NEB 07/08/24 19:30 Ondansetron HCl 4 mg Q4HP PRN IV 07/08/24 19:45 07/09/24 01:07 4 MG Acetaminophen 650 mg Q6HP PRN PO 07/08/24 19:45 Nitroglycerin 0.4 mg Q5MINP PRN SL 07/08/24 19:45 Amlodipine Besylate 5 mg DAILY PO 07/09/24 10:00 07/14/24 09:58 5 MG Aspirin 81 mg DAILY PO 07/09/24 10:00 07/14/24 09:56 81 MG Empaglifozin 10 mg DAILY PO 07/09/24 10:00 07/14/24 10:03 10 MG Lisinopril 20 mg DAILY PO 07/09/24 10:00 07/14/24 09:57 20 MG Atorvastatin Calcium 40 mg DAILY PO 07/09/24 10:00 07/14/24 09:56 40 MG Cholecalciferol 2,000 unit DAILY PO 07/09/24 10:00 07/14/24 09:57 2,000 UNIT Metoprolol Succinate 25 mg DAILY PO 07/09/24 10:00 07/14/24 09:56 25 MG Potassium Chloride 10 meq DAILY PO 07/09/24 13:14 07/14/24 09:57 10 MEQ Allopurinol 300 mg DAILY PO 07/10/24 10:00 07/14/24 09:56 300 MG Sennosides 8.6 mg HS PO 07/09/24 22:00 07/13/24 21:09 8.6 MG Apixaban 5 mg BID PO 07/09/24 22:00 07/14/24 09:57 5 MG Albuterol 2.5 mg BID NEB 07/09/24 22:00 07/13/24 22:03 2.5 MG Ipratropium [place] 0.5 mg BID NEB 07/09/24 22:00 07/13/24 22:03 0.5 MG Morphine Sulfate 2 mg Q4HPRN PRN IV 07/11/24 19:30 07/14/24 16:05 2 MG Oxycodone HCl 10 mg Q6HR PO 07/12/24 18:00 07/14/24 18:15 10 MG Furosemide 40 mg DAILY IV 07/13/24 22:00 07/14/24 11:19 40 MG Piperacillin Sod/ Tazobactam Sod 100 ml @ 25 mls/hr Q8H IV 07/13/24 18:00 07/14/24 18:56 25 MLS/HR Azithromycin 250 ml @ 125 mls/hr DAILY@2200 IV 07/14/24 22:00 Examination Patient lying in bed, in no acute distress General: Well-built, afebrile, mucosae are moist Cardiovascular: Regular S1 and S2. No murmurs, gallops or rubs. No JVD elevation. Respiratory: Saturating 92 on 4 L NC. Bibasilar crackles heard on auscultation. (less than yesterday) Abdomen: Soft, nontender, nondistended, normoactive bowel sounds, no rebound tenderness, no organomegaly, no masses Genitourinary: Deferred MSK/skin: Mobilizes 4 limbs. Skin is dry and warm. Patient has bilateral chronic stasis dermatitis changes along with bilateral 1+ pitting edema (improving). Neurological: weakness 2/5 right hand, normal speech. Pupils are isocoric and reactive. Psych/Mental Status: A/Ox3 laboratory and microbiology Laboratory Tests 07/14/24 05:47 Test 07/14/24 05:47 Range/Units Serum Glucose 114 H 74-106 mg/dL Microbiology Date/Time Source Procedure Growth Status 07/13/24 09:45 Voided Urine Urine Culture - Preliminary Resulted 07/13/24 09:30 Blood Blood Culture - Preliminary NO GROWTH AFTER 24 HOURS OF INCUBATION. Resulted 07/11/24 17:48 Nose MRSA Screen - Final Complete Labs and/or images reviewed: Labs reviewed by me, Image(s) reviewed by me Problem List/Assessment/Plan Problem List/Assessment/Plan Acute on chronic hypoxic respiratory failure Acute on chronic heart failure with preserved ejection fraction exacerbation- NYHA class 3 Paroxysmal atrial fibrillation Hypertensive heart disease with failure BNP elevated at 948 Chest x-ray shows pulmonary vascular congestion Continue Lasix 40 mg IV daily: x ray today still showing congestion but BP are soft.hold on in BP meds Continue aspirin 81 mg daily, amlodipine 5 mg daily, lisinopril 20 mg daily, metoprolol 25 mg daily, Jardiance 10 mg daily Continue apixaban 5 mg b.i.d. COPD possible exacerbation possible pneumonia? Continue nebulized treatments Start azithromycin Start Zosyn Possible sepsis Acute cystitis UA showed LE+ and elevated white blood cells count Start Zosyn and fluconazole 200 mg starting 07/09 Urine bacterial culture reordered Ruled out stroke Right arm weakness Head Ct scan neg Arm ultrasound negative PT Chronic right hip pain secondary to osteoarthritis Continue home medication oxycodone Ruled out DVT lower extremity Lower extremity Doppler is unremarkable History of gout Continue allopurinol 300 mg daily Hypokalemia secondary to diuresis Hypomagnesemia Supplemented Morbid obesity Recommended physical therapy and lifestyle measures guest services attendant consulted for physical therapy and home hospice Plan discussed with patient in which all questions have been answered Goals of care discussed with patient, full code status Case discussed with Dr. Tejeda Plan discussed with: Patient, Other (Nurse) My Orders My Orders Orders - CESAR HAYES RESIDENT Procedure Category Date Status Time Head Without Contrast CT 07/14/24 Resulted 12:54 Rt Upper Dvt US 07/14/24 Resulted 12:54 Dietary Evaluation Review Comments: Continue current plan of care Expected Outcomes/Goals: Pt will meet >75% estimated needs Fu 3-5 days Addendum Addendum Addendum I was physically present for the hayward portions of the service provided to patient by THE RESIDENT. I have reviewed the documentation, discussed the case with resident and agree with the resident's documentation except as noted. Also the patient's clinical case was discussed with the patient's nurse. This medical document was created using an electronic medical record system with computerized dictation system. Although this document has been carefully reviewed, there might still be some phonetic and typographical errors. These areas are purely typographical due to imperfections of the software programs, and do not reflect any compromise in the patient's medical care. Late signature. Date of Service: Jul 14, 2024 Billing Provider: AGUILAR TEJEDA MD Common Visit Codes: [id number] INP/OBS CARE(HIGH) CESAR HAYES RESIDENT Jul 14, 2024 22:05 AGUILAR TEJEDA MD Jul 15, 2024 07:05
[2024-07-14] MEDS: AZITHROMYCIN 500MG/ 250ML 250 ML IV SCH (22:10)
[2024-07-15] VITALS (11 sets, daily range): BP systolic 90–109; BP diastolic 59–80; PULSE 68–95; RESP 16–18; TEMP 97.5–98.4; O2SAT 91–95
[2024-07-15] MEDS ORDERED: DOXY50CA PO (12:10)
[2024-07-15] MEDS ORDERED: BACDST PO (12:10)
[2024-07-15] MEDS ORDERED: IBUPROFEN 800 MG TAB PO ONE (12:15)
--- NOTE | 2024-07-15 16:13 | DVHDSRES ---
Discharge Summary Date of Admission Resident Creating Document: CESAR HAYES RESIDENT Jul 08, 2024 at 19:39 Date of Discharge: Jul 15, 2024 Admitting Diagnosis Acute on chronic hypoxic respiratory failure Labs/Diagnostic Data: Laboratory Results Test 07/14/24 05:47 07/13/24 09:45 07/10/24 05:34 07/09/24 15:45 White Blood Count 14.8 10^3/uL (4.4-10.8) Red Blood Count 4.05 10^6/uL (4.0-5.20) Hemoglobin 13.0 g/dL (12.2-16.2) Hematocrit 40.2 % (36.0-46.0) Mean Corpuscular Volume 99.2 fL (80.0-100.0) Mean Corpuscular Hemoglobin 32.2 pg (28.0-32.0) Mean Corpuscular Hemoglobin Concent 32.5 g/dL (32.0-36.0) Red Cell Distribution Width 16.0 % (11.8-14.3) Platelet Count 261 10^3/uL (140-450) Mean Platelet Volume 9.0 fL (6.9-10.8) Neutrophils (%) (Auto) 79.9 % (37.0-80.0) Lymphocytes (%) (Auto) 10.1 % (10.0-50.0) Monocytes (%) (Auto) 7.5 % (0.0-12.0) Eosinophils (%) (Auto) 2.0 % (0.0-7.0) Basophils (%) (Auto) 0.5 % (0.0-2.0) Neutrophils # (Auto) 11.8 10 ^3/uL (1.6-8.6) Lymphocytes # (Auto) 1.5 10 ^3/uL (0.4-5.4) Monocytes # (Auto) 1.1 10 ^3/uL (0-1.3) Eosinophils # (Auto) 0.3 10 ^3/uL (0-0.8) Basophils # (Auto) 0.1 10 ^3/uL (0-0.2) Nucleated Red Blood Cells 0.0 % Sodium Level 135 mmol/L (136-145) Potassium Level 3.3 mmol/L (3.5-5.1) Chloride Level 92 mmol/L (98-107) Carbon Dioxide Level 33 mmol/L (20-31) Anion Gap 10 (5-15) Blood Urea Nitrogen 34 mg/dL (9-23) Creatinine 1.08 mg/dL (0.550-1.02) Glomerular Filtration Rate Calc 53 mL/min (>90) BUN/Creatinine Ratio 31.5 (10.0-20.0) Serum Glucose 114 mg/dL (74-106) Calcium Level 9.7 mg/dL (8.7-10.4) Total Bilirubin 1.0 mg/dL (0.2-1.0) Aspartate Amino Transferase (AST) 72 U/L (13-40) Alanine Aminotransferase (ALT) 32 U/L (7-40) Alkaline Phosphatase 131 U/L (46-116) C-Reactive Protein High Sensitivity > 20.00 mg/dL (<1.0) Total Protein 6.5 g/dL (5.7-8.2) Albumin 3.8 g/dL (3.2-4.8) Urine Color Light-orange (Yellow) Urine Clarity Turbid (Clear) Urine pH 5.5 (5.0-9.0) Urine Specific Kendrick 1.022 (1.001-1.035) Urine Protein 1+ (Negative) Urine Ketones Negative (Negative) Urine Blood 2+ /uL (Negative) Urine Nitrite Negative (Negative) Urine Bilirubin Negative (Negative) Urine Urobilinogen Normal mg/dL (Negative) Urine Leukocyte Esterase 1+ /uL (Negative) Urine RBC 69 /hpf (0 - 4) Urine Microscopic WBC 29 /HPF (0-5) Urine Squamous Epithelial Cells Few /hpf (<5) Urine Bacteria None seen /hpf (None Seen) Urine Hyaline Casts Few /lpf (0 - 2) Urine Mucus Few (None Seen) Urine Yeast (Budding) Many /hpf (None Seen) Urine Glucose 3+ mg/dL (Normal) Magnesium Level 2.1 mg/dL (1.6-2.6) Free Thyroxine (T4) Calculated 1.34 ng/dL (0.89-1.76) Total Triiodothyronine (TT3) 1.10 ng/mL (0.60-1.81) Urine Opiates Screen Pos (NEGATIVE) Urine Fentanyl Screen Neg (NEGATIVE) Urine Barbiturates Screen Neg (NEGATIVE) Urine Phencyclidine Screen Neg (NEGATIVE) Urine Amphetamines Screen Neg (NEGATIVE) Urine Benzodiazepines Screen Neg (NEGATIVE) Urine Cocaine Screen Neg (NEGATIVE) Urine Cannabinoids Screen Neg (NEGATIVE) Test 07/09/24 06:41 07/08/24 20:22 07/08/24 15:43 Prothrombin Time 13.1 sec (9.3-11.8) Prothrombin Time INR 1.26 (0.9-1.15) Activated Partial Thromboplast Time 29.1 SEC (24.5-34.5) Hemoglobin A1c 5.5 % A1C (<5.7) Direct Bilirubin 0.3 mg/dL (<0.3) B-Type Natriuretic Peptide 979.69 pg/mL (0-100) Vitamin B12 Level 314 pg/mL (211-911) Vitamin D 25-Hydroxy 59.4 ng/mL (30.0-100) Thyroid Stimulating Hormone (TSH) 0.49 uIU/mL (0.55-4.78) Troponin I High Sensitivity 13 ng/L (</=34) Lactic Acid Level 1.9 mmol/L (0.4-2.0) Other Laboratory Tests 07/14/24 05:47 Brief Hx & Hospital Course: 79F with PMHx of HFpEF, paroxysmal AFib, COPD on 3L O2, CKD, right hip OA on chronic oxycodone, obesity, and gout was admitted with progressive dyspnea and LE edema. CXR showed pulmonary congestion, BNP was 948, troponins WNL. Started on IV Lasix, which led to clinical improvement. She developed increasing WBC, UA with LE+ and WBCs, and was treated for presumed acute cystitis with Zosyn and fluconazole. Also started on azithromycin for possible pneumonia given history of staph pneumonia on prior admission (05/16/2024). Head CT and arm U/S were unremarkable. Her weakness resolved. Diuresis was continued with furosemide. Serum K was repleted. Patient was deemed not a candidate for escalation of care and opted for comfort care; home hospice arranged. On discharge, right upper extremity mild erythema and tenderness noted, possible phlebitis vs cellulitis. General: Well-built, afebrile, mucosae are moist Cardiovascular: Regular S1 and S2. No murmurs, gallops or rubs. No JVD elevation. Respiratory: Saturating 92 on 4 L NC. Bibasilar crackles heard on auscultation. (less than yesterday) Abdomen: Soft, nontender, nondistended, normoactive bowel sounds, no rebound tenderness, no organomegaly, no masses Genitourinary: Deferred MSK/skin: Mobilizes 4 limbs. Skin is dry and warm. Patient has bilateral chronic stasis dermatitis changes along with bilateral 1+ pitting edema (improving). right upper extremity mild erythema and tenderness noted Neurological: weakness 2/5 right hand, normal speech. Pupils are isocoric and reactive. Psych/Mental Status: A/Ox3 Discharge Medications: Apixaban 5 mg BID Aspirin 81 mg daily Amlodipine 5 mg daily Lisinopril 20 mg daily Metoprolol 25 mg daily Jardiance 10 mg daily Allopurinol 300 mg daily Oxycodone as needed Doxycycline 100 mg BID for 7 days (possible cellulitis) Bactrim DS BID for 7 days (UTI coverage) Furosemide PO Follow-Up: Home hospice services Condition at Discharge: Stable, comfortable, on 23L O2 via NC, ambulating with assistance. Weakness resolved. Alert and oriented. Pain controlled. Case discussed with Dr Doran Operations or Procedures EXAM: CT HEAD WITHOUT CONTRAST HISTORY: arm weakness COMPARISON: CT HEAD WITHOUT CONTRAST on DOS: 09/21/22 TECHNIQUE: Axial images of the head were obtained and reformatted in coronal and sagittal planes. All CT scans at this medical facility are performed using dose modulation techniques as appropriate to a performed exam including the following: Automated exposure control was utilized; adjustment of the MA and/or KV according to patient size; and use of iterative reconstruction technique. CT Dose: CTDI volume is 66.93 mGy. Dose-length product is 1184.49 mGy*cm FINDINGS: There is no evidence of acute intracranial hemorrhage, mass, mass effect midline shift. There is no hydrocephalus or extra-axial fluid collection. Joshua-white matter differentiation is maintained. The visualized paranasal sinuses and mastoid air cells are clear. The calvarium is intact. IMPRESSION: 1. No acute intracranial process. RIGHT Upper Extremity Venous Duplex Clinical History: RUE PAIN Comparison: None Findings: Duplex Doppler evaluation of the venous system of the RIGHT lower neck and upper extremity including color Doppler and spectral/pulsed waveform analysis was performed. The internal jugular vein demonstrates appropriate compressibility and waveform variability. The subclavian vein is patent on color Doppler evaluation without intraluminal thrombus and demonstrates waveform variability. The visualized portion of the brachiocephalic vein is patent on color Doppler evaluation without intraluminal thrombus and demonstrates waveform variability. The axillary vein demonstrates appropriate compressibility and waveform variability. The brachial veins demonstrate appropriate compressibility and patency on Doppler evaluation. The basilic vein demonstrates appropriate compressibility and patency on Doppler evaluation. The cephalic vein demonstrates appropriate compressibility and patency on Doppler evaluation. Impression: No venous thrombus identified in the RIGHT upper extremity vessels evaluated above. If clinical concern/symptoms persist or worsen, short-interval follow-up study is suggested. Condition at Discharge: Stable Final Diagnosis/Problems List Acute on chronic hypoxic respiratory failure Acute on chronic heart failure with preserved ejection fraction exacerbation-NYHA class 3 Paroxysmal atrial fibrillation Hypertensive heart disease with failure COPD possible exacerbation possible pneumonia gram +/ gram neg Possible sepsis Acute cystitis Ruled out stroke Right arm cellulitis Chronic right hip pain secondary to osteoarthritis Ruled out DVT lower extremity History of gout Hypokalemia Hypomagnesemia Morbid obesity Discharge Disposition: Hospice - Home Discharge Instruct/Medications Diet: Consistent carbohydrate, Cardiac 2g Na,low cholest Diet comment: cardiac and consistent carb diet Activity: Light activity Follow Up/Referral: home hospice Medications: see prescription Discharge Statement: "Patient was advised to return to the ER or call 911 if any headaches, dizziness, shortness of breath, chest pain, abdominal pain, bleeding, fevers, or worsening of medical condition. Patient was counseled about treatment plan, medications, possible side effects, patientverbalized understanding. All questions were answered to the best of my ability. This discharge took greater then 30 minutes in planning, reviewing documentation, counseling the patient, and discussing with other team members." ASSESSMENT ASSESSMENT Assessment PNA celullitis Date of Service: Jul 15, 2024 Billing Provider: CURT DORAN MD Common Visit Codes: 96500-AAU/OBS DISCH DAY >30min CESAR HAYES RESIDENT Jul 15, 2024 16:13 CURT DORAN MD Jul 15, 2024 22:33
== END 2024-07-15 18:53 | disposition hospice, home (50) | DRG 871 ==
LOC: ER 15:05 → EDBD 15:05 → OVERFLOW 19:39 → TELE-WESTW 23:47
PROVIDERS: ADMIT Internal Medicine; ATTEND Emergency Medicine
DX: A41.9 Sepsis, unspecified organism (principal); I50.33 Acute on chronic diastolic (congestive) heart failure; J15.69 Pneumonia due to other Gram-negative bacteria; J96.21 Acute and chronic respiratory failure with hypoxia; J15.9 Unspecified bacterial pneumonia; I13.0 Hypertensive heart and chronic kidney disease with heart failure and stage 1 through stage 4 chronic kidney disease, or unspecified chronic kidney disease; I31.39 Other pericardial effusion (noninflammatory); B37.49 Other urogenital candidiasis; N30.00 Acute cystitis without hematuria; L03.113 Cellulitis of right upper limb; J44.1 Chronic obstructive pulmonary disease with (acute) exacerbation; J44.0 Chronic obstructive pulmonary disease with (acute) lower respiratory infection; I95.9 Hypotension, unspecified; N18.9 Chronic kidney disease, unspecified; E66.01 Morbid (severe) obesity due to excess calories; Z68.39 Body mass index [BMI] 39.0-39.9, adult; I48.91 Unspecified atrial fibrillation; G89.4 Chronic pain syndrome; M16.11 Unilateral primary osteoarthritis, right hip; E87.6 Hypokalemia; E83.42 Hypomagnesemia; Z91.048 Other nonmedicinal substance allergy status; Z90.81 Acquired absence of spleen; Z90.710 Acquired absence of both cervix and uterus; Z87.891 Personal history of nicotine dependence; Z85.3 Personal history of malignant neoplasm of breast; Z90.10 Acquired absence of unspecified breast and nipple; Z79.891 Long term (current) use of opiate analgesic; Z79.82 Long term (current) use of aspirin
CPT/HCPCS: 36415; 70450; 71045; 76604; 80048; 80053; 80076; 80307; 81001; 82306; 82607; 83036; 83605; 83735; 83880; 84439; 84443; 84480; 84484; 85025; 85610; 85730; 86141; 87040; 87081; 87086; 87088; 93005; 93970; 93971; 94640; 96365; 96375; 97110; 97163; 99291; G0378; J2003; J2405; J2543; J3480

== ENCOUNTER 2024-09-26 20:43 | Inpatient (IN) | payer OTHER, MEDICARE ==
[~2024-09-26] VITALS: Ht 147.3 cm; Wt 99.0 kg
[~2024-09-26 20:43] MED LIST changes: +ALLO300T2 PO; -AUG875T PO; +BACDST PO; +DOXY50CA PO; +FURO20TA4 PO; +MOME1AER8 INH; -MORP15TA PO; -OXYC325T14 PO; -PRED20TA2 PO
[2024-09-26] MEDS: FUROSEMIDE 40 MG/4 ML VIAL IV ONE (21:15)
--- NOTE | 2024-09-26 21:23 | ED.PDOC ---
History of Present Illness HPI Comments 79 year old female was BIBA and has a Hx of CHF, HTN, A-FIb, and Asthma associated to the c/c of SOB and Bilateral Leg Edema. Pt states that she has had Bilateral Leg Edema for the past "few weeks" and have worsened to the point where they are "3 times her normal size". Pt also notes that her SOB has been on set for the past few days with no alleviating factors at this time. Pt notes that Breathing treatment does not help at this time. Pt is noted to take Lasix for her CHF. Pt is A&Ox4 at this time. No other associated symptoms, modifiers, recent injuries or sick contacts present at this time. 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, Medications, Allergies Allergies: Coded Allergies: Diphenhydramine (Verified Allergy, Unknown, 09/21/22) Uncoded Allergies: TAPE (Allergy, Unknown, 09/21/22) Home Meds Active Scripts Sulfamethoxazole W/Trimethopri (Bactrim Ds Tablet) 1 Tab Tb, 1 TAB PO BID for 10 Days, #20 TAB Prov:CESAR HAYES RESIDENT 07/15/24 Doxycycline Hyclate (Doxycycline Hyclate) 50 Mg Cap, 100 MG PO BID for 10 Days, #20 CAP Prov:CESAR HAYES RESIDENT 07/15/24 Naloxone HCl (Narcan) 4 Mg/0.1 Ml Spr, 4 MG NA PRN PRN for 1 Day, #1 SPRAY 1 Refill Prov:DEONDRE GLEZ MD 05/17/24 Oxycodone Hcl (OxyCONTIN ER Tablet) 20 Mg Tb, 1 TAB PO BID for 7 Days, #14 TAB Prov:DEONDRE GLEZ MD 05/17/24 Albuterol Sulfate (Albuterol Sulfate Hfa) 108 Mcg/Act Aer, 108 MCG IN BID for 30 Days, #1 AER 0 Refills Prov:CHEN MANCERA RESIDENT 05/16/24 Umeclidinium [place] (Incruse Ellipta) 62.5 Mcg/Inh Inh, 62.5 MCG IN DAILY for 30 Days, #1 INHALER 0 Refills Prov:CHEN MANCERA RESIDENT 05/16/24 Empagliflozin (Jardiance) 10 Mg Tab, 10 MG PO DAILY for 30 Days, #30 TAB 1 [facility]/16/24 Apixaban Base (ELIQUIS) 5 Mg Tab, 1 TAB PO BID for 30 Days, #60 TAB Prov:[facility] 05/16/24 Lisinopril (Lisinopril) 20 Mg Tab, 1 TAB PO DAILY for 30 Days, #30 TAB 5 Refills Prov:[facility] 05/16/24 Calcium Carbonate (Antacid) (Antacid) 750 Mg Chw, 750 MG PO DAILYPRN PRN for 30 Days, #30 TAB.CHEW Prov:[facility] 05/16/24 Aspirin (Aspir-Low) 81 Mg Tab, 81 MG PO DAILY for 30 Days, #30 MG Prov:[facility] 05/16/24 Ondansetron HCl (Ondansetron) 4 Mg Tab, 4 MG PO PRN PRN for NAUSEA / VOMITING for 30 Days, #30 TAB Prov:[facility] 05/16/24 Atorvastatin Calcium (ATORVASTATIN CALCIUM) 40 Mg Tab, 1 TAB PO DAILY for 30 Days, #30 TAB Prov:[facility] 05/16/24 Amlodipine Besylate (Amlodipine Besylate) 5 Mg Tab, 1 TAB PO DAILY for 30 Days, #30 TAB Prov:[facility] 05/16/24 Metoprolol Succinate (Metoprolol Succinate Er) 25 Mg Tab, 1 TAB PO DAILY for 30 Days, #30 TAB Prov:[facility] 05/16/24 Reported Medications Mometasone Furoate-Formoterol (Dulera) 1 Aer Aer, 2 PUFF INH BID 07/09/24 Allopurinol (Allopurinol) 300 Mg Tab, 1 TAB PO DAILY 07/09/24 Furosemide (Furosemide) 20 Mg Tab, 1 TAB PO BID 07/09/24 Mometasone Furoate-Formoterol (Dulera) 1 Aer Aer, INH UD for 30 Days, #13 02/02/24 Potassium Chloride (Potassium Chloride ER) 10 Meq Tab, 1 TAB PO DAILY for 30 Days, #30 02/02/24 Senna (Sennosides) 8.6 Mg Tab, 8.6 MG PO, TAB 02/02/24 Cholecalciferol (VITAMIN D3) 2,000 Unit Tab, 1 TAB PO DAILY for 30 Days 02/02/24 Information Source: Patient, Emergency Med Personnel Mode of Arrival: EMS Severity: Moderate Timing: Weeks Duration: Since onset Prehospital treatment: Oxygen Vital Signs Vital Signs Date Time Temp Pulse Resp B/P (MAP) Pulse Ox O2 Delivery O2 Flow Rate FiO2 09/26/24 22:24 98.2 72 18 105/56 (72) 98 98.2 09/26/24 22:24 Nasal Cannula* 6 44 Physical Exam General: Awake, alert and oriented. No acute distress. Chronic ill appearing Skin: Skin in warm, dry and intact. Appropriate color for ethnicity. HEENT: The head is normocephalic and atraumatic. Conjunctivae are clear without exudates or hemorrhage. Sclera is non-icteric. EOM are intact. No signs of nystagmus. Eyelids are normal in appearance without swelling or lesions. Oral mucosa is pink and moist Neck: The neck is supple with normal range of motion. No JVD. Cardiac: Heart rate and rhythm are normal. Diastolic murmur over the Left sternal border Respiratory: No signs of respiratory distress. Lung sounds are clear in all lobes bilaterally without rales, rhonchi, or wheezes. Abdominal: Abdomen is soft, non-tender without distention, guarding or rigidity. Bowel sounds are present and normoactive in all four quadrants. Extremities: Bilateral non-pitting leg edema Neurological: The patient is awake, alert and oriented to person, place, and time with normal speech. Speech is clear. There is no facial asymmetry. Psychiatric: Appropriate mood and affect. Good judgement and insight. Review of Systems: REVIEW OF SYSTEMS: No fever, no chills, or fatigue HEENT: No sore throat, no earache, no congestion, no neck pain. Cardiac: No chest pain. No palpitations. Lungs: + shortness of breath, no cough. GI: No nausea, no vomiting, no diarrhea, no constipation, no abdominal pain : No dysuria, frequency, or urgency. No hematuria. Musculoskeletal: No joint pain , no joint swelling, bilateral leg edema. Skin: No rash, no itching. 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 Was a procedure done?: No Differential Dx Considerations may include: Differential diagnoses considered includebut arenot limited to acute Bronchitis, Asthma, COPD, Pneumothorax, PE, CHF, Pulmonary HTN, Anemia, CO Poisoning, Methemoglobinemia, Hyperventilation, Metabolic Acidosis, Pulmonary Edema, Pneumonia, ACS, Pericardial Tamponade, Anxiety, other X-Ray, Labs, Meds, VS Vital Signs Date Time Temp Pulse Resp B/P (MAP) Pulse Ox O2 Delivery O2 Flow Rate FiO2 09/26/24 22:24 98.2 72 18 105/56 (72) 98 98.2 09/26/24 22:24 62 20 98 Nasal Cannula* 6 44 09/26/24 21:15 110/78 09/26/24 20:53 97.8 88 16 91/57 (68) 94 97.8 09/26/24 20:49 92 Lab Test 09/26/24 22:30 09/26/24 21:25 Range/Units Troponin I High Sensitivity 9 9 </=34 ng/L White Blood Count 7.1 4.4-10.8 10^3/uL Red Blood Count 4.62 4.0-5.20 10^6/uL Hemoglobin 13.3 12.2-16.2 g/dL Hematocrit 41.4 36.0-46.0 % Mean Corpuscular Volume 89.6 80.0-100.0 fL Mean Corpuscular Hemoglobin 28.8 28.0-32.0 pg Mean Corpuscular Hemoglobin Concent 32.2 32.0-36.0 g/dL Red Cell Distribution Width 17.4 H 11.8-14.3 % Platelet Count 229 140-450 10^3/uL Mean Platelet Volume 8.3 6.9-10.8 fL Neutrophils (%) (Auto) 77.3 37.0-80.0 % Lymphocytes (%) (Auto) 13.4 10.0-50.0 % Monocytes (%) (Auto) 6.6 0.0-12.0 % Eosinophils (%) (Auto) 2.1 0.0-7.0 % Basophils (%) (Auto) 0.6 0.0-2.0 % Neutrophils # (Auto) 5.5 1.6-8.6 10 ^3/uL Lymphocytes # (Auto) 1.0 0.4-5.4 10 ^3/uL Monocytes # (Auto) 0.5 0-1.3 10 ^3/uL Eosinophils # (Auto) 0.2 0-0.8 10 ^3/uL Basophils # (Auto) 0 0-0.2 10 ^3/uL Nucleated Red Blood Cells 0.1 % Sodium Level 142 136-145 mmol/L Potassium Level 4.5 3.5-5.1 mmol/L Chloride Level 106 98-107 mmol/L Carbon Dioxide Level 27 20-31 mmol/L Anion Gap 9 5-15 Blood Urea Nitrogen 36 H 9-23 mg/dL Creatinine 1.70 H 0.550-1.02 mg/dL Glomerular Filtration Rate Calc 31 >90 mL/min BUN/Creatinine Ratio 21.2 H 10.0-20.0 Serum Glucose 116 H 74-106 mg/dL Calcium Level 10.1 8.7-10.4 mg/dL Total Bilirubin 0.6 0.2-1.0 mg/dL Aspartate Amino Transferase (AST) 24 13-40 U/L Alanine Aminotransferase (ALT) 9 7-40 U/L Alkaline Phosphatase 112 46-116 U/L B-Type Natriuretic Peptide 841.62 0-100 pg/mL Total Protein 6.9 5.7-8.2 g/dL Albumin 4.2 3.2-4.8 g/dL Current Medications Medications (Trade) Dose Ordered Sig/Leonard Route Start Time Stop Time Status Last Admin Furosemide (Lasix Injection) 40 mg ONCE ONCE IV 09/26/24 21:15 09/26/24 21:16 DC 09/26/24 21:15 [facility] [id number] [place] [id number] Ph: [phone] DIAGNOSTIC IMAGING Diagnostic Imaging Report : [id number] Signed PATIENT: SHILA LERNER ACCT: [id number] UNIT: [id number] : 1945 LOC: ER ROOM / BED: / AGE / SEX: 79 / F ADM STATUS: REG ER SERVICE 12 ORDERING PHYSICIAN: ALEXA PLATA MD PROCEDURE(s): CXR1 - CHEST XRAY 1 VIEW REASON: cp ORDER NUMBER(s): [id number], ACCESSION NUMBER(s): [id number] CHEST RADIOGRAPH Indication: cp Technique: Single frontal view of the chest was obtained Comparison: XY CHEST XRAY 1 VIEW on DOS: 07/13/24, XY CHEST PORTABLE on DOS: 07/08/24, XY CHEST XRAY 1 VIEW on DOS: 05/15/24 FINDINGS: Lines and Tubes: None Lungs: No focal consolidation. Pleura: No effusion. No pneumothorax. Cardiomediastinal contours: Cardiomegaly Bones: No acute osseous abnormality. IMPRESSION: 1. Cardiomegaly. No findings of congestive failure. Consider cardiomyopathy or pericardial effusion. ATED BY: AR GREGG Jr., DO DICTATED DATE/TIME: 09/26/242237 SIGNED BY: AR GREGG Jr., DO SIGNED DATE/TIME: 09/26/242237 CC: Time of 1ST Reevaluation: 21:47 Reevaluation 1ST: Unchanged Patient Education/Counseling: Need For Follow Up Family Education/Counseling: No Family Present Departure 1 Departure Time of Disposition: 21:57 Impression: Primary Impression: CHF exacerbation Disposition: ADMITTED INPATIENT Condition: Stable Comments Patient admitted to hospitalist service for further treatment, evaluation and monitoring. Critical Care Note Critical Care Time?: No Stability Stability form required: No Heart Score Heart Score: Heart Score Response (Comments) Value History Moderate Suspicious 1 EKG Normal 0 Age >65 2 Risk Factors >3 or Hx ASHD 2 Troponin >3 x's Normal limit 2 Total 7 I personally scribed for ALEXA PLATA MD ([email or web address]) on 09/26/24 at 21:23. Electronically submitted by Richard Martinez ([email or web address]). ALEXA PLATA MD Sep 26, 2024 21:23
[2024-09-26 21:42] LABS: Basophils # (auto) 0 10 ^3/uL (0-0.2); Basophils % (auto) 0.6 % (0.0-2.0); Eosinophils # (auto) 0.2 10 ^3/uL (0-0.8); Eosinophils % (auto) 2.1 % (0.0-7.0); Hematocrit 41.4 % (36.0-46.0); Hemoglobin 13.3 g/dL (12.2-16.2); Lymphocytes % (auto) 13.4 % (10.0-50.0); Mean Corpuscular Hemoglobin 28.8 pg (28.0-32.0); Mean Corpuscular Hgb Conc. 32.2 g/dL (32.0-36.0); Mean Corpuscular Volume 89.6 fL (80.0-100.0); Monocytes # (auto) 0.5 10 ^3/uL (0-1.3); Monocytes % (auto) 6.6 % (0.0-12.0); Neutrophils # (auto) 5.5 10 ^3/uL (1.6-8.6); Neutrophils % (auto) 77.3 % (37.0-80.0); Nucleated Red Blood Cells % 0.1 %; Platelet Count (auto) 229 10^3/uL (140-450); Red Blood Cells 4.62 10^6/uL (4.0-5.20); Red Cell Distribution Width 17.4 % (11.8-14.3); White Blood Cell 7.1 10^3/uL (4.4-10.8)
[2024-09-26 22:05] LABS: Albumin 4.2 g/dL (3.2-4.8); Alkaline Phosphatase 112 U/L (46-116); Anion Gap 9 (5-15); Aspartate Aminotransferase 24 U/L (13-40); BUN/Creatinine Ratio 21.2 (10.0-20.0); Calcium 10.1 mg/dL (8.7-10.4); Carbon Dioxide 27 mmol/L (20-31); Chloride 106 mmol/L (98-107); Potassium 4.5 mmol/L (3.5-5.1); Sodium 142 mmol/L (136-145); Total Protein 6.9 g/dL (5.7-8.2)
[2024-09-26 22:06] LABS: Alanine Aminotransferase 9 U/L (7-40); Bilirubin, Total 0.6 mg/dL (0.2-1.0); Blood Urea Nitrogen 36 mg/dL (9-23); Glucose 116 mg/dL (74-106)
[2024-09-26 22:24] VITALS: PULSE 62; RESP 20; O2SAT 98
--- NOTE | 2024-09-26 22:41 | DVH ---
CHEST RADIOGRAPH Indication: cp Technique: Single frontal view of the chest was obtained Comparison: XY CHEST XRAY 1 VIEW on DOS: 07/13/24, XY CHEST PORTABLE on DOS: 07/08/24, XY CHEST XRAY 1 VIEW on DOS: 05/15/24 FINDINGS: Lines and Tubes: None Lungs: No focal consolidation. Pleura: No effusion. No pneumothorax. Cardiomediastinal contours: Cardiomegaly Bones: No acute osseous abnormality. IMPRESSION: 1. Cardiomegaly. No findings of congestive failure. Consider cardiomyopathy or pericardial effusion.
[2024-09-26] MEDS ORDERED: ACETAMINOPHEN 325 MG TAB PO PRN (22:45)
[2024-09-26 23:31] VITALS: O2SAT 95
[2024-09-26 23:43] VITALS: BP 105/56; PULSE 72; RESP 18; TEMP 98.2; O2SAT 98
[2024-09-27] VITALS (13 sets, daily range): BP systolic 92–133; BP diastolic 51–58; PULSE 55–68; RESP 17–20; TEMP 97.3–97.9; O2SAT 95–100
--- NOTE | 2024-09-27 01:40 | ECG ---
[facility] Test Date: 2024-09-26 Test Time: 20:49:08 Pat Name: SHILA LERNER Department: ED Room: 0280 Gender: F [employer] Dean: SUHAIL : 1945 Requested By: ALEXA PLATA Order Number: [id number] Reading MD: Eriberto Julio Measurements Intervals [place] Rate: 92 P: 37 MS: 162 QRS: 40 QRSD: 167 T: -19 QT: 408 QTc: 505 Interpretive Statements Sinus rhythm Multiple premature complexes, vent & supraven Right bundle branch block Electronically Signed On 09-27-2024 21:13:15 PDT by Eriberto Julio Please click the below link to view image of tracing.
[2024-09-27] MEDS: HYDROcodone-ACET 5/325MG TAB PO PRN (02:00)
--- NOTE | 2024-09-27 02:53 | DVHHP2 ---
History of Present Illness Reason for Visit: Shortness for breath History of Present Illness 79-year-old female presents for evaluation of shortness for breath. Patient reports worsening shortness for breath over the past one-week with associated leg swelling. She also reports mild chest pressure. She states using 6 L of nasal cannula at home currently. She normally uses 4 L. denies cough or fever. No other acute complaints. Past Medical History Asthma, CHF, chronic kidney disease, atrial fibrillation, hypertension Past Surgical History Appendectomy, tonsillectomy, cholecystectomy, hysterectomy Family History Noncontributory Smoke: No ALCOHOL: none Drugs: None Lives: with Family Review of Systems Review of Systems Review of systems are currently negative otherwise addressed in HPI. Allergies: Coded Allergies: Diphenhydramine (Verified Allergy, Unknown, 09/21/22) Uncoded Allergies: TAPE (Allergy, Unknown, 09/21/22) Medications Current Medications Medications Dose Ordered Sig/Leonard Route Start Time Stop Time Status Last Admin Dose Admin Furosemide 20 mg BIDD IV 09/27/24 06:00 Apixaban 5 mg BID PO 09/27/24 10:00 Albuterol 2.5 mg Q6HPRN PRN NEB 09/26/24 22:45 Allopurinol 300 mg DAILY PO 09/27/24 10:00 Atorvastatin Calcium 40 mg HS PO 09/27/24 22:00 Acetaminophen/ Hydrocodone Bitart 1 tab Q4HP PRN PO 09/26/24 22:45 09/27/24 02:00 1 TAB Ondansetron HCl 4 mg Q4HP PRN IV 09/26/24 22:45 Acetaminophen 650 mg Q6HP PRN PO 09/26/24 22:45 Exam Vital Signs Vital Signs Date Time Temp Pulse Resp B/P (MAP) Pulse Ox O2 Delivery O2 Flow Rate FiO2 09/27/24 02:08 98.3 65 18 117/78 (91) 96 98.3 09/26/24 23:43 6.0 44 09/26/24 23:31 Nasal Cannula* Exam Gen: 79-year-old female in mild distress, morbidly obese Skin: Warm, dry, normal color and texture, no rash. HEENT: Normocephalic atraumatic, mucous membranes moist and pink. Neck: Cervical and supraclavicular nodes normal without enlargement, trachea is midline, thyroid gland is normal without masses. Pulmonary: Clear to auscultation and percussion bilaterally. Cardiac: Regular rate and rhythm. No murmur Abdomen: Soft, nontender, nondistended, bowel sounds present all 4 quadrants, no guarding, no rigidity, no organomegaly. Extremities: No cyanosis, clubbing, bilateral lower extremity plus two edema Neuro: Cranial nerves II through XII grossly intact, normal affect and speech, no focal motor deficits. Labs/Xrays ORDERING PHYSICIAN: CHEN MANCERA RESIDENT PROCEDURE(s): ECIDC - ECHO 2D MODE CARDIAC DOP REASON: staph epi in blood, ?murmur ORDER NUMBER(s): [id number], ACCESSION NUMBER(s): [id number] APPROVED REPORT EXAM: LIMITED Two-dimensional and M-mode echocardiogram with Doppler and color Doppler. Blood Pressure: 122/60 mmHg INDICATION staph epi in blood, ? murmur RISK FACTORS Height: 50, Weight: 176 DIMENSIONS LVDd 4.9 (3.8-5.7cm) LA (2D) 5.6 (1.9-4.0cm) Aortic Root 3.4 (2.0- 3.7cm) LVDs 3.5 (2.5-4.0cm) LA (MM) (1.9-4.0cm) Aortic Cusp Exc 1.3 (1.5- 2.0cm) EF (%) 55.0 (55-70%) Rt. Atrium 5.6 (1.9-4.0cm) Asc. Aorta cm IVSd 1.3 (0.7-1.1cm) RV (D) (1.8-2.4cm) PWd 1.4 (0.7-1.1cm) Mitral Valve Mitral Mitral Stenosis E/A ratio 0.0 2D MVA cm2 Aortic Valve Aortic Valve Aortic Stenosis LVOT Diameter 1.8 (1.8-2.4cm) Doppler ZAID cm2 Tricuspid Valve TR Velocity 2.46m/s RVSP 37mmHg LEFT VENTRICLE The left ventricle is of normal size. There is tvoz-dw-vuygiyiv concentric left ventricular hypertrophy. Ejection fraction is estimated at 55%. There is no gross wall motion abnormalities but endocardial definition is suboptimal. Diastolic function is not assessed. RIGHT VENTRICLE Not well visualized. ATRIA There is owbywbji-mm-newwwn biatrial enlargement. Intra-atrial septum is not well visualized. MITRAL VALVE Not well visualized. There is no significant mitral regurgitation. PULMONIC VALVE Likely normal. TRICUSPID VALVE There is mild tricuspid regurgitation. PA systolic pressure is estimated at 40- 45 mm Hg. AORTIC VALVE Trileaflet in morphology. Leaflets are mildly calcified. No evidence of sign ificant stenosis or regurgitation. GREAT VESSELS The aortic root is of normal size. Ascending aorta isn't visualized. PERICARDIAL EFFUSION There is sbmj-sq-ogxlbjpg pericardial effusion. IVC is of normal size and collapses normally with inspiration. Other Information Technically limited study due to body habitus and patient position. Conclusion The study is very technically limited. Normal left ventricular size and systolic function. Ejection fraction is estimated at 55%. The right ventricle is not well visualized. No evidence of hemodynamically significant valvular disease. Ehkwlpix-nz-xlgkpe biatrial enlargement. PA systolic pressure is estimated at 40-45 mm Hg. Small to moderate-sized pericardial effusion. SIGNED BY: CHILO GRIFFITH MD SIGNED DATE/TIME: 05/15/24 1502 CC: ORDERING PHYSICIAN: ALEXA PLATA MD PROCEDURE(s): CXR1 - CHEST XRAY 1 VIEW REASON: cp ORDER NUMBER(s): [id number], ACCESSION NUMBER(s): [id number] CHEST RADIOGRAPH Indication: cp Technique: Single frontal view of the chest was obtained Comparison: XY CHEST XRAY 1 VIEW on DOS: 07/13/24, XY CHEST PORTABLE on DOS: 07/08/24, XY CHEST XRAY 1 VIEW on DOS: 05/15/24 FINDINGS: Lines and Tubes: None Lungs: No focal consolidation. Pleura: No effusion. No pneumothorax. Cardiomediastinal contours: Cardiomegaly Bones: No acute osseous abnormality. IMPRESSION: 1. Cardiomegaly. No findings of congestive failure. Consider cardiomyopathy or pericardial effusion. Labs Test 09/27/24 00:07 09/26/24 21:25 Range/Units Troponin I High Sensitivity 11 </=34 ng/L White Blood Count 7.1 4.4-10.8 10^3/uL Red Blood Count 4.62 4.0-5.20 10^6/uL Hemoglobin 13.3 12.2-16.2 g/dL Hematocrit 41.4 36.0-46.0 % Mean Corpuscular Volume 89.6 80.0-100.0 fL Mean Corpuscular Hemoglobin 28.8 28.0-32.0 pg Mean Corpuscular Hemoglobin Concent 32.2 32.0-36.0 g/dL Red Cell Distribution Width 17.4 H 11.8-14.3 % Platelet Count 229 140-450 10^3/uL Mean Platelet Volume 8.3 6.9-10.8 fL Neutrophils (%) (Auto) 77.3 37.0-80.0 % Lymphocytes (%) (Auto) 13.4 10.0-50.0 % Monocytes (%) (Auto) 6.6 0.0-12.0 % Eosinophils (%) (Auto) 2.1 0.0-7.0 % Basophils (%) (Auto) 0.6 0.0-2.0 % Neutrophils # (Auto) 5.5 1.6-8.6 10 ^3/uL Lymphocytes # (Auto) 1.0 0.4-5.4 10 ^3/uL Monocytes # (Auto) 0.5 0-1.3 10 ^3/uL Eosinophils # (Auto) 0.2 0-0.8 10 ^3/uL Basophils # (Auto) 0 0-0.2 10 ^3/uL Nucleated Red Blood Cells 0.1 % Sodium Level 142 136-145 mmol/L Potassium Level 4.5 3.5-5.1 mmol/L Chloride Level 106 98-107 mmol/L Carbon Dioxide Level 27 20-31 mmol/L Anion Gap 9 5-15 Blood Urea Nitrogen 36 H 9-23 mg/dL Creatinine 1.70 H 0.550-1.02 mg/dL Glomerular Filtration Rate Calc 31 >90 mL/min BUN/Creatinine Ratio 21.2 H 10.0-20.0 Serum Glucose 116 H 74-106 mg/dL Calcium Level 10.1 8.7-10.4 mg/dL Total Bilirubin 0.6 0.2-1.0 mg/dL Aspartate Amino Transferase (AST) 24 13-40 U/L Alanine Aminotransferase (ALT) 9 7-40 U/L Alkaline Phosphatase 112 46-116 U/L B-Type Natriuretic Peptide 841.62 0-100 pg/mL Total Protein 6.9 5.7-8.2 g/dL Albumin 4.2 3.2-4.8 g/dL Assessment/Plan Assessment/Plan Assessment Acute on chronic respiratory failure Acute on chronic congestive heart failure Acute kidney injury Hypertension Morbid obesity Secondary coagulopathy Plan Admit the patient to Med surge to the hospitalist IV Lasix Resume home medications Med nebs Continue treatment per orders. Plan discussed with: Patient My Orders Orders - ROLANDO DEJESUS Procedure Category Date Status Time Furosemide Injection PHA 09/27/24 In Process (Lasix Injection) 06:00 Apixaban (Eliquis) PHA 09/27/24 In Process 10:00 Albuterol Medneb PHA 09/26/24 In Process (Ventolin Medneb) 22:45 Allopurinol Tablet PHA 09/27/24 In Process (Zyloprim Tablet) 10:00 Atorvastatin (Lipitor) PHA 09/27/24 In Process 22:00 Basic Metabolic Panel LAB 09/27/24 Logged 04:00 Admit ADMIT 09/26/24 Transmitted 22:32 Renal DIET 09/27/24 Transmitted Standard(2gna,3gk,Lopho) Breakfast Hydrocodone-Acet PHA 09/26/24 In Process 5/325mg Tab ([place] 22:45 Ondansetron Hcl PHA 09/26/24 In Process (Zofran) 22:45 Condition: Stable DEBRA 09/26/24 In Process 22:32 Acetaminophen Tablet PHA 09/26/24 In Process (Tylenol Tablet) 22:45 Maintain Bed Rest DEBRA 09/26/24 In Process 22:32 Sequential DEBRA 09/26/24 In Process Compression Device Urinalysis LAB 09/26/24 Logged 22:32 Insert Hutchinson Catheter DEBRA 09/26/24 In Process 23:04 Urinalysis LAB 09/27/24 Verified 02:40 Date of Service: Sep 26, 2024 Billing Provider: ROLANDO DEJESUS Common Visit Codes: [id number] INP/OBS CARE (HIGH) ROLANDO DEJESUS Sep 27, 2024 02:53
[2024-09-27 04:17] LABS: Urine Bacteria FEW /hpf (None Seen); Urine Blood Negative /uL (Negative); Urine Budding Yeast LOADED /hpf (None Seen); Urine Clarity Clear (Clear); Urine Color Light-Yellow (Yellow); Urine Hyaline Cast MANY /lpf (0 - 2); Urine Mucus FEW (None Seen); Urine Protein, UAD Negative (Negative); Urine Specific Gravity 1.014 (1.001-1.035); Urine Squamous Epithelial Cell None Seen /hpf (<5); Urine Urobilinogen Normal (Negative); Urine WBC 2 /HPF (0-5)
[2024-09-27 05:49] LABS: Chloride 104 mmol/L (98-107); Sodium 142 mmol/L (136-145)
[2024-09-27 05:50] LABS: Anion Gap 10 (5-15); Calcium 9.4 mg/dL (8.7-10.4); Carbon Dioxide 28 mmol/L (20-31)
[2024-09-27 05:55] LABS: BUN/Creatinine Ratio 22.5 (10.0-20.0); Glucose 95 mg/dL (74-106)
[2024-09-27 05:59] LABS: Blood Urea Nitrogen 36 mg/dL (9-23)
[2024-09-27] MEDS: FUROSEMIDE 20 MG/2 ML VIAL IV SCH (06:31)
[2024-09-27] MEDS: APIXABAN 5 MG TAB PO SCH (11:04)
[2024-09-27] MEDS: ALLOPURINOL 100 MG TAB PO SCH (11:04)
--- NOTE | 2024-09-27 11:37 | DVHPN2 ---
Reviewed: Care Plan, H&P, Labs, Medications, Previous Orders, Radiology Changes from previous H/P or p: No Changes Objective Vitals Vital Signs Date Time Temp Pulse Resp B/P (MAP) Pulse Ox O2 Delivery O2 Flow Rate FiO2 09/27/24 09:00 97.8 62 18 133/55 (81) 97 97.8 09/27/24 06:53 Nasal Cannula* 3 32 Intake/Output Intake and Output 09/27/24 07:00 Intake Total 0 ml Output Total 400 ml Balance -400 ml Intake Oral 0 ml Output Urine Total 400 ml Medications Current Medications Medications Dose Ordered Sig/Leonard Route Start Time Stop Time Status Last Admin Dose Admin Furosemide 20 mg BIDD IV 09/27/24 06:00 09/27/24 06:31 20 MG Apixaban 5 mg BID PO 09/27/24 10:00 09/27/24 11:04 5 MG Albuterol 2.5 mg Q6HPRN PRN NEB 09/26/24 22:45 Allopurinol 300 mg DAILY PO 09/27/24 10:00 09/27/24 11:04 300 MG Atorvastatin Calcium 40 mg HS PO 09/27/24 22:00 Acetaminophen/ Hydrocodone Bitart 1 tab Q4HP PRN PO 09/26/24 22:45 09/27/24 06:47 1 TAB Ondansetron HCl 4 mg Q4HP PRN IV 09/26/24 22:45 Acetaminophen 650 mg Q6HP PRN PO 09/26/24 22:45 Laboratory Results Laboratory Tests 09/26/24 21:25 09/27/24 04:44 Chemistry Test 09/26/24 21:25 09/27/24 04:44 Albumin 4.2 g/dL (3.2-4.8) Calcium Level 10.1 mg/dL (8.7-10.4) 9.4 mg/dL (8.7-10.4) Total Protein 6.9 g/dL (5.7-8.2) Cardiac Markers Test 09/26/24: B-Type Natriuretic Peptide 841.62 pg/mL (0-100) LFT Test 09/26/24:25 Alanine Aminotransferase (ALT) 9 U/L (7-40) Alkaline Phosphatase 112 U/L (46-116) Aspartate Amino Transferase (AST) 24 U/L (13-40) Total Bilirubin 0.6 mg/dL (0.2-1.0) Urinalysis Test 09/27/24 03:30 Urine Color Light-yellow (Yellow) Urine Clarity Clear (Clear) Urine pH 5.0 (5.0-9.0) Urine Specific [place] 1.014 (1.001-1.035) Urine Protein Negative (Negative) Urine Ketones Negative (Negative) Urine Blood Negative /uL (Negative) Urine Nitrite Negative (Negative) Urine Bilirubin Negative (Negative) Urine Urobilinogen Normal mg/dL (Negative) Urine Leukocyte Esterase Negative /uL (Negative) Urine RBC 1 /hpf (0 - 4) Urine Microscopic WBC 2 /HPF (0-5) Urine Squamous Epithelial Cells None seen /hpf (<5) Urine Bacteria Few /hpf (None Seen) H Urine Hyaline Casts Many /lpf (0 - 2) Urine Mucus Few (None Seen) Urine Yeast (Budding) Loaded /hpf (None Seen) Urine Glucose Trace mg/dL (Normal) Labs and/or images reviewed: Labs reviewed by me, Image(s) reviewed by me Assessment/Plan Assessment/Plan Acute on chronic hypoxic respiratory failure: Acute on chronic heart failure with preserved ejection fraction: Lasix Paroxysmal atrial fibrillation: Continue Eliquis Hypertensive heart disease with failure COPD possible exacerbation Acute cystitis Chronic right hip pain secondary to osteoarthritis History of gout Hypokalemia Hypomagnesemia Morbid obesity Patient is hospice revoked Time spent 70 minutes Advanced care planning time 20 minutes Patient is full code Robbi Pinzon [phone] at bedside Patient was on [place] hosp[facility] Plan discussed with: Patient Date of Service: Sep 27, 2024 Billing Provider: NICOL ROMAN MD Common Visit Codes: [id number] CARE 30-74 MIN NICOL ROMAN MD Sep 27, 2024 11:37
--- NOTE | 2024-09-27 14:17 | DVHCONRES ---
Date Seen: Sep 27, 2024 Resident Creating Document: MAX BETTS RESIDENT Referring Physician Dr. Denton Reason for Consultation CHF exacerbation History of Present Illness Patient is a 79-year-old female with past medical history of heart failure with moderately reduced ejection fraction, hypertension, dyslipidemia, atrial fibrillation s/p DC cardioversion x2, COPD on home oxygen 4-5 L baseline, asthma, CKD, breast cancer s/p bilateral mastectomy, osteoarthritis, anxiety, morbid obesity, who comes in due to increasing bilateral lower extremity swelling and shortness of breaths. According to the patient, at baseline she utilizes 3-5 L of home oxygen and has dyspnea Functional Class III, however, over the last 2 weeks she notes her dyspnea has progressed to Functional Class IV and her legs have swollen "3 times the normal" which is what prompted this visit to the hospital. Per patient this is her 7th hospitalization for similar symptoms in the last 12 months, and this is patient's [facility]th hospitalization to the [facility] for similar symptoms of CHF exacerbation. Per patient, previously she was following with a typewriter tester in [place], however has not seen the typewriter tester for a while, stress test was done 5 years ago which was unremarkable at the time, denies ever having undergone angiography. Patient reports good adherence to her home medications and denies any missed doses, however, does endorses dietary indiscretions as she does not prepare her own meals and her niece feeds her prepackaged meals. On review of systems patient is complaining of fatigue, shortness of breaths and orthopnea. Initial 12 lead EKG was not on file, EKG was ordered. Serum BNP 841, CXR showed cardiomegaly, no findings of congestive failure. Consider cardiomyopathy pericardial effusion. Repeat echocardiogram was ordered. Past Medical History moderately reduced ejection fraction, hypertension, dyslipidemia, atrial fibrillation s/p DC cardioversion x2, COPD on home oxygen 4-5 L baseline, asthma, CKD, breast cancer s/p bilateral mastectomy, osteoarthritis, anxiety, morbid obesity Past Surgical History Bilateral mastectomy, subsequent flap graft surgery,? Squamous cell carcinoma excision/Mohs micrographic surgery? Near the eyebrows Family History: Colon cancer G8 MOTHER Diabetes mellitus G8 MOTHER Social History Smoking: Quit 20 years ago, prior to that patient was smoking 4-5 packs per day for 35 years (approximately 150 pack years) Alcohol: Denies Drugs: Denies Social: Patient lives in her property with her niece and niece's , niece is her caregiver Allergies: Coded Allergies: Diphenhydramine (Verified Allergy, Unknown, 09/21/22) Uncoded Allergies: TAPE (Allergy, Unknown, 09/21/22) Home Meds Active Scripts Sulfamethoxazole W/Trimethopri (Bactrim Ds Tablet) 1 Tab Tb, 1 TAB PO BID for 10 Days, #20 TAB Prov:CESAR HAYES RESIDENT 07/15/24 Doxycycline Hyclate (Doxycycline Hyclate) 50 Mg Cap, 100 MG PO BID for 10 Days, #20 CAP Prov:CESAR HAYES RESIDENT 07/15/24 Naloxone HCl (Narcan) 4 Mg/0.1 Ml Spr, 4 MG NA PRN PRN for 1 Day, #1 SPRAY 1 Re fill Prov:DEONDRE GLEZ MD 05/17/24 Oxycodone Hcl (OxyCONTIN ER Tablet) 20 Mg Tb, 1 TAB PO BID for 7 Days, #14 TAB Prov:DEONDRE GLEZ MD 05/17/24 Albuterol Sulfate (Albuterol Sulfate Hfa) 108 Mcg/Act Aer, 108 MCG IN BID for 30 Days, #1 AER 0 Refills Prov:CHEN MANCERA 05/16/24 Umeclidinium [place] (Incruse Ellipta) 62.5 Mcg/Inh Inh, 62.5 MCG IN DAILY for 30 Days, #1 INHALER 0 Refills Prov:CHEN MANCERA 05/16/24 Empagliflozin (Jardiance) 10 Mg Tab, 10 MG PO DAILY for 30 Days, #30 TAB 1 Refill Prov:CHEN MANCERA [facility] 05/16/24 Apixaban Base (ELIQUIS) 5 Mg Tab, 1 TAB PO BID for 30 Days, #60 TAB Prov:CHEN MANCERA 05/16/24 Lisinopril (Lisinopril) 20 Mg Tab, 1 TAB PO DAILY for 30 Days, #30 TAB 5 Refills Prov:CHEN MANCERA 05/16/24 Calcium Carbonate (Antacid) (Antacid) 750 Mg Chw, 750 MG PO DAILYPRN PRN for 30 Days, #30 TAB.CHEW [facility]/16/24 Aspirin (Aspir-Low) 81 Mg Tab, 81 MG PO DAILY for 30 Days, #30 MG Prov:[facility] 05/16/24 Ondansetron HCl (Ondansetron) 4 Mg Tab, 4 MG PO PRN PRN for NAUSEA / VOMITING for 30 Days, #30 TAB Prov:[facility] 05/16/24 Atorvastatin Calcium (ATORVASTATIN CALCIUM) 40 Mg Tab, 1 TAB PO DAILY for 30 Days, #30 TAB Prov:[facility] 05/16/24 Amlodipine Besylate (Amlodipine Besylate) 5 Mg Tab, 1 TAB PO DAILY for 30 Days, #30 TAB Prov:[facility] 05/16/24 Metoprolol Succinate (Metoprolol Succinate Er) 25 Mg Tab, 1 TAB PO DAILY for 30 Days, #30 TAB Prov:[facility] 05/16/24 Reported Medications Mometasone Furoate-Formoterol (Dulera) 1 Aer Aer, 2 PUFF INH BID 07/09/24 Allopurinol (Allopurinol) 300 Mg Tab, 1 TAB PO DAILY 07/09/24 Furosemide (Furosemide) 20 Mg Tab, 1 TAB PO BID 07/09/24 Mometasone Furoate-Formoterol (Dulera) 1 Aer Aer, INH UD for 30 Days, #13 02/02/24 Potassium Chloride (Potassium Chloride ER) 10 Meq Tab, 1 TAB PO DAILY for 30 Days, #30 02/02/24 Senna (Sennosides) 8.6 Mg Tab, 8.6 MG PO, TAB 02/02/24 Cholecalciferol (VITAMIN D3) 2,000 Unit Tab, 1 TAB PO DAILY for 30 Days 02/02/24 Current Medications Current Medications Medications (Trade) Dose Ordered Sig/Leonard Route PRN Reason Start Time Stop Time Status Last Admin Furosemide (Lasix Injection) 20 mg BIDD IV 09/27/24 06:00 09/27/24 06:31 Apixaban (Eliquis) 5 mg BID PO 09/27/24 10:00 09/27/24 11:04 Albuterol (Ventolin Medneb) 2.5 mg Q6HPRN PRN NEB SHORTNESS OF BREATH 09/26/24 22:45 Allopurinol (Zyloprim Tablet) 300 mg DAILY PO 09/27/24 10:00 09/27/24 11:04 Atorvastatin Calcium (Lipitor) 40 mg HS PO 09/27/24 22:00 Acetaminophen/ Hydrocodone Bitart ([place] 5/325MG Tab) 1 tab Q4HP PRN PO MODERATE PAIN (4-6 PAIN SCALE) 09/26/24 22:45 09/27/24 06:47 Ondansetron HCl (Zofran) 4 mg Q4HP PRN IV NAUSEA / VOMITING 09/26/24 22:45 Acetaminophen (Tylenol Tablet) 650 mg Q6HP PRN PO PAIN SCALE 1-3 OR TEMP>100.4 09/26/24 22:45 Ceftriaxone Sodium 50 ml @ 100 mls/hr DAILY@09 IV 09/28/24 09:00 Clindamycin Phosphate 50 ml @ 50 mls/hr Q8HR IV 09/27/24 14:00 Oxycodone HCl (OxyCONTIN ER Tablet) 10 mg TID PO 09/27/24 14:00 Review of Systems Patient seen and examined at bedside. Patient is alert and oriented to time, place person and responding to all questions. General: Fatigue Eyes: No Pain, No Vision change, No Conjunctivae inflammation, No Eyelid inflammation, No Other, No Redness ENT: No Ear pain, No Ear discharge, No Nose pain, No Nose discharge, No Nose congestion, No Mouth pain, No Mouth swelling, No Throat pain, No Throat swelling, No Other Cardiovascular: No Chest Pain, No Palpitations, Orthopnea, No Paroxysmal No Dyspnea, Edema, No Lt Headedness, No Other Respiratory: No Cough, No Dry, Shortness of breath, SOB with exertion, No Wheezing, No Hemoptysis, No Pleuritic Pain, No Sputum, No Other Gastrointestinal: No Nausea, No Vomiting, No Abdominal Pain, No Diarrhea, No Constipation, No Melena, No Hematochezia, No Other Genitourinary: No Dysuria, No Frequency, No Incontinence, No Hematuria, No Retention, No Other Musculoskeletal: No other, No neck pain, No shoulder pain, No arm pain, No back pain, No hand pain, No leg pain, No foot pain Skin: No Rash, No Lesions, No Jaundice, No Bruising, No Other Psych: Sad affect, notes anxiety Vital Signs Vital Signs Date Time Temp Pulse Resp B/P (MAP) Pulse Ox O2 Delivery O2 Flow Rate FiO2 09/27/24 10:00 97 Nasal Cannula* 5 40 09/27/24 09:00 97.8 62 18 133/55 (81) 97.8 Physical Exam General Appearance: Cooperative. Well developed. Well nourished. In [id number] distress, titrated O2 from 5 L to 6 L per patient's request Head Exam: Normal inspection Neck Exam: Normal inspection. Non-tender. Normal alignment Pulmonary/Respiratory: Chest non-tender. Decreased bilateral breath sounds L>R, no crackles, trace wheezing. Cardiovascular/Chest: Regular rate and rhythm. murmur. No JVD. Abdominal Exam: Normal bowel sounds. Soft. normal abdomen, no visible veins, Nontender. No hepatospenomegaly. No masses Ankle Exam: Trace pitting ankle edema Lower extremities: 3+ bilateral lower extremity nonpitting edema Neuro/Mental Status: A&O x4. Coherent. Thoughts/Psych: Normal thought pattern. Appropriate mood and affect. Good judgement and insight Skin Exam: Stasis dermatitis noted on bilateral lower extremities Labs/Diagnostic Data Labs Test 09/27/24 04:44 09/27/24 03:30 09/27/24 00:07 09/26/24 21:25 Range/Units Sodium Level 142 136-145 mmol/L Potassium Level 4.0 3.5-5.1 mmol/L Chloride Level 104 98-107 mmol/L Carbon Dioxide Level 28 20-31 mmol/L Anion Gap 10 5-15 Blood Urea Nitrogen 36 H 9-23 mg/dL Creatinine 1.60 H 0.550-1.02 mg/dL Glomerular Filtration Rate Calc 33 >90 mL/min BUN/Creatinine Ratio 22.5 H 10.0-20.0 Serum Glucose 95 74-106 mg/dL Calcium Level 9.4 8.7-10.4 mg/dL Urine Color Light-yellow Yellow Urine Clarity Clear Clear Urine pH 5.0 5.0-9.0 Urine Specific [place] 1.014 1.001-1.035 Urine Protein Negative Negative Urine Ketones Negative Negative Urine Blood Negative Negative /uL Urine Nitrite Negative Negative Urine Bilirubin Negative Negative Urine Urobilinogen Normal Negative mg/dL Urine Leukocyte Esterase Negative Negative /uL Urine RBC 1 0 - 4 /hpf Urine Microscopic WBC 2 0-5 /HPF Urine Squamous Epithelial Cells None seen <5 /hpf Urine Bacteria Few H None Seen /hpf Urine Hyaline Casts Many 0 - 2 /lpf Urine Mucus Few None Seen Urine Yeast (Budding) Loaded None Seen /hpf Urine Glucose Trace Normal mg/dL Troponin I High Sensitivity 11 </=34 ng/L White Blood Count 7.1 4.4-10.8 10^3/uL Red Blood Count 4.62 4.0-5.20 10^6/uL Hemoglobin 13.3 12.2-16.2 g/dL Hematocrit 41.4 36.0-46.0 % Mean Corpuscular Volume 89.6 80.0-100.0 fL Mean Corpuscular Hemoglobin 28.8 28.0-32.0 pg Mean Corpuscular Hemoglobin Concent 32.2 32.0-36.0 g/dL Red Cell Distribution Width 17.4 H 11.8-14.3 % Platelet Count 229 140-450 10^3/uL Mean Platelet Volume 8.3 6.9-10.8 fL Neutrophils (%) (Auto) 77.3 37.0-80.0 % Lymphocytes (%) (Auto) 13.4 10.0-50.0 % Monocytes (%) (Auto) 6.6 0.0-12.0 % Eosinophils (%) (Auto) 2.1 0.0-7.0 % Basophils (%) (Auto) 0.6 0.0-2.0 % Neutrophils # (Auto) 5.5 1.6-8.6 10 ^3/uL Lymphocytes # (Auto) 1.0 0.4-5.4 10 ^3/uL Monocytes # (Auto) 0.5 0-1.3 10 ^3/uL Eosinophils # (Auto) 0.2 0-0.8 10 ^3/uL Basophils # (Auto) 0 0-0.2 10 ^3/uL Nucleated Red Blood Cells 0.1 % Total Bilirubin 0.6 0.2-1.0 mg/dL Aspartate Amino Transferase (AST) 24 13-40 U/L Alanine Aminotransferase (ALT) 9 7-40 U/L Alkaline Phosphatase 112 46-116 U/L B-Type Natriuretic Peptide 841.62 0-100 pg/mL Total Protein 6.9 5.7-8.2 g/dL Albumin 4.2 3.2-4.8 g/dL Assessment Chronic systolic heart failure with low-now improved ejection fraction, NYHA class 4 Atrial fibrillation, likely persistent. Chads Vasc 5 points, has bled 3 point Possible pulmonary hypertension with PA pressure 40-45mmHg Acute on chronic hypoxic respiratory failure likely due to above COPD on home oxygen 3-5 L Bilateral lower extremity cellulitis versus stasis dermatitis Morbid obesity, class 3 Plan: Serum BNP 841 Echocardiogram from April 2024 EF 55% (improved from 30% in 2022). Biatrial enlargement. PA 40-45 mmHg. Small-moderate pericardial effusion. Holding off beta-keyon and BEBO inhibitors V/Q scan to evaluate for CTEPH Scheduled for right and left heart catheterization on Wednesday Ordered repeat echocardiogram; preliminary shows severe tricuspid insufficiency, enlarged right ventricular outflow tract, severe mitral regurgitation and a moderate pericardial effusion Continue IV Lasix Continue anticoagulation Daily weights Strict I&Os Antibiotics as per hospitalist Thank you so much for the opportunity to consult on your patient. Cardiology team will follow the patient. In case of any questions or concerns please feel free to reach out. Plan discussed with Dr. Garces Plan discussed with: Patient, Other (RN) Visit Coding Cardiology RES Date of Service: Sep 27, 2024 Billing Provider: LILIYA GARCES Sr., MD Cardiology Common Codes: [id number] INP/OBS CARE (High) MAX BETTS RESIDENT Sep 27, 2024 14:17
[2024-09-27] MEDS: oxyCODONE ER 10 MG TAB PO SCH (14:22)
[2024-09-27] MEDS: cefTRIAXone 1GM/50ML D5W 50 ML IV ONE (14:22)
--- NOTE | 2024-09-27 16:05 | DVH ---
EXAM: US Duplex Bilateral Lower Extremities Veins CLINICAL INDICATION: R leg tenderness, asymmetry, prolonged immobilization TECHNIQUE: Real-time duplex ultrasound scan of the bilateral lower extremity veins integrating B-mod e two-dimensional vascular structure, Doppler spectral analysis, color flow Doppler imaging and compr ession. COMPARISON: US BILAT LOWER DVT on DOS: 07/08/24, US BILAT LOWER DVT on DOS: 02/01/24 FINDINGS: RIGHT DEEP VEINS: Unremarkable. No DVT in the right common femoral, femoral, proximal deep femoral or popliteal veins. The veins demonstrate normal color flow, are normally compressible, with normal phasic flow and/or augmentation response. RIGHT SUPERFICIAL VEINS: Unremarkable. No thrombus in the visualized right great saphenous vein. LEFT DEEP VEINS: Unremarkable. No DVT in the left common femoral, femoral, proximal deep femoral o r popliteal veins. The veins demonstrate normal color flow, are normally compressible, with normal p hasic flow and/or augmentation response. LEFT SUPERFICIAL VEINS: Unremarkable. No thrombus in the visualized left great saphenous vein. SOFT TISSUES: No acute findings. No popliteal cyst. OTHER FINDINGS: . IMPRESSION: No DVT.
[2024-09-27] MEDS: CLINDAMYCIN 300MG IV 50 ML IV SCH (16:13)
--- NOTE | 2024-09-27 17:24 | DVHSR ---
APPROVED REPORT EXAM: Two-dimensional and M-mode echocardiogram with Doppler and color Doppler. Blood Pressure: 133/55 mmHg INDICATION Heart Failure RISK FACTORS Obesity: Height: 4'10", Weight: 205 DIMENSIONS LVDd4.7 (3.8-5.7cm)LA (2D)4.4 (1.9-4.0cm)Aortic Root2.8 (2.0-3.7cm) LVDs3.0 (2.5-4.0cm)LA (MM) (1.9-4.0cm)Aortic Cusp Exc2.0 (1.5-2.0cm) EF (%) 60.0 (55-70%)Rt. Atrium7.4 (1.9-4.0cm)Asc. Aorta cm IVSd0.8 (0.7-1.1cm)RV (D)6.3 (1.8-2.4cm) Mitral Valve MitralMitral Stenosis E/A ratio0.02D MVAcm2 Aortic Valve Aortic ValveAortic Stenosis V10.92m/Loni Mean GR.3mmHg V21.12m/Loni Peak GR.5mmHg LVOT Diameter2.0 (1.8-2.4cm)Doppler AVA2.58cm2 Tricuspid Valve TR Velocity2.45m/s [id number] Other Information Quality : Technically LimitedRhythm : Technically limited study due to body habitus and patient position. Conclusion Technically difficult study. Underlying atrial fibrillation. Notable right ventricular and right atrial enlargement. Left atrial enlargement. The aortic root is within normal limits. The mitral and tricuspid are structurally normal. The aortic valve is mildly calcified at the left a nd right coronary cusps however good mobility of the aortic leaflets. Left ventricular systolic function is preserved at 60%. There is a volume/pressure overload of the r ight ventricle with doming of the interventricular septum in systole and diastole. The right ventric ular free is mobile yet hypokinetic. There is [id number] mitral and tricuspid regurgitation. There is a small pericardial effusion not hemodynamically significant. No intracardiac masses or vegetations discernible.
[2024-09-27] MEDS: ATORVASTATIN 20 MG TAB PO SCH (22:40)
[2024-09-28] VITALS (13 sets, daily range): BP systolic 94–126; BP diastolic 44–70; PULSE 51–91; RESP 17–20; TEMP 96.5–97.7; O2SAT 92–98
--- NOTE | 2024-09-28 07:12 | ECG ---
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
--- NOTE | 2024-09-28 08:05 | DVHPNRES ---
Progress Note Date Seen: Sep 28, 2024 Resident Creating Document: MAX BETTS RESIDENT Medical Necessity Reason Pt with a Central, PICC or Fol: Yes The following are medically ne: Swartz Catheter Reason for swartz catheter: Total Immobilization Subjective Review of Systems Patient seen and examined at bedside, patient notes increasing shortness of breath and dyspnea from yesterday. In moderate distress. Reports excessive anxiety. Objective vital signs Vital Sign Date Time Temp Pulse Resp B/P (MAP) Pulse Ox O2 Delivery O2 Flow Rate FiO2 09/28/24 06:51 94 Nasal Cannula* 4 36 09/28/24 05:16 92/51 09/28/24 05:00 97.3 51 17 97.3 Total Intake and Output 09/27/24 09/27/24 09/28/24 15:00 23:00 07:00 Intake Total 960 ml 740 ml Output Total 1000 ml 700 ml Balance -40 ml 40 ml medications Current Medications Medications Dose Ordered Sig/Leonard Route Start Time Stop Time Status Last Admin Dose Admin Furosemide 20 mg BIDD IV 09/27/24 06:00 09/28/24 05:16 20 MG Apixaban 5 mg BID PO 09/27/24 10:00 09/27/24 22:40 5 MG Albuterol 2.5 mg Q6HPRN PRN NEB 09/26/24 22:45 Allopurinol 300 mg DAILY PO 09/27/24 10:00 09/27/24 11:04 300 MG Atorvastatin Calcium 40 mg HS PO 09/27/24 22:00 09/27/24 22:40 40 MG Acetaminophen/ Hydrocodone Bitart 1 tab Q4HP PRN PO 09/26/24 22:45 09/27/24 06:47 1 TAB Ondansetron HCl 4 mg Q4HP PRN IV 09/26/24 22:45 Acetaminophen 650 mg Q6HP PRN PO 09/26/24 22:45 Ceftriaxone Sodium 50 ml @ 100 mls/hr DAILY@09 IV 09/28/24 09:00 Clindamycin Phosphate 50 ml @ 50 mls/hr Q8HR IV 09/27/24 14:00 09/28/24 05:15 50 MLS/HR Oxycodone HCl 10 mg TID PO 09/27/24 14:00 09/28/24 05:17 10 MG Empaglifozin 10 mg DAILY PO 09/28/24 10:00 Patient Own Medication 1 tab DAILY PO 09/28/24 10:00 UNV Examination General Appearance: Cooperative. Well developed. Well nourished. In [id number] distress, titrated O2 from 5 L to 6 L per patient's request Head Exam: Normal inspection Neck Exam: Normal inspection. Non-tender. Normal alignment Pulmonary/Respiratory: Chest non-tender. Decreased bilateral breath sounds L>R, no crackles, trace wheezing. Cardiovascular/Chest: Regular rate and rhythm. murmur. No JVD. Abdominal Exam: Normal bowel sounds. Soft. normal abdomen, no visible veins, Nontender. No hepatospenomegaly. No masses Ankle Exam: Trace pitting ankle edema Lower extremities: 3+ bilateral lower extremity nonpitting edema Neuro/Mental Status: A&O x4. Coherent. Thoughts/Psych: Normal thought pattern. Appropriate mood and affect. Good judgement and insight Skin Exam: Stasis dermatitis noted on bilateral lower extremities laboratory and microbiology Laboratory Tests 09/27/24 04:44 09/26/24 21:25 Test 09/27/24 04:44 Range/Units Serum Glucose 95 74-106 mg/dL Labs and/or images reviewed: Labs reviewed by me, Image(s) reviewed by me Problem List/Assessment/Plan Problem List/Assessment/Plan Chronic systolic heart failure with low-now improved ejection fraction, NYHA class 4 Atrial fibrillation, likely persistent. Chads Vasc 5 points, has bled 3 point Possible pulmonary hypertension with PA pressure 40-45mmHg in May 13, 39mmHg October 11 Acute on chronic hypoxic respiratory failure likely due to above COPD on home oxygen 3-5 L To severe tricuspid regurgitation Moderate to severe mitral regurgitation Bilateral lower extremity cellulitis versus stasis dermatitis Morbid obesity, class 3 Plan: * Serum BNP 841 * Echocardiogram from April 2024 EF 55% (improved from 30% in 2022). Biatrial enlargement. PA 40-45 mmHg. Small-moderate pericardial effusion. * Holding off beta-keyon and BEBO inhibitors * V/Q scan to evaluate for CTEPH * Scheduled for right and left heart catheterization tomorrow; details of the procedure were explained to patient, patient's at bedside, and patient's daughter on telephone, risks and benefits of the procedure were explained in great detail were all questions were answered and concerns were addressed, patient and family exhibited understanding. * Ordered repeat echocardiogram; Technically difficult study. Underlying atrial fibrillation. Notable right ventricular and right atrial enlargement. Left atrial enlargement. The aortic root is within normal limits. The mitral and tricuspid are structurally normal. The aortic valve is mildly calcified at the left and right coronary cusps however good mobility of the aortic leaflets. Left ventricular systolic function is preserved at 60%. There is a volume/pressure overload of the right ventricle with doming of the interventricular septum in systole and diastole. The right ventricular free is mobile yet hypokinetic. There is [id number]-tettex mitral and tricuspid regurgitation. There is a small pericardial effusion not hemodynamically significant. No intracardiac masses or vegetations discernible. * Continue IV Lasix * Held anticoagulation * Daily weights * Strict I&Os * Antibiotics as per hospitalist Thank you so much for the opportunity to consult on your patient. Cardiology team will follow the patient. In case of any questions or concerns please feel free to reach out. Plan discussed with Dr. Garces Plan discussed with: Patient, Daughter, Other (RN) My Orders My Orders Orders - MAX BETTS Procedure Category Date Status Time Echo 2d Mode Cardiac US 09/27/24 Resulted DOP 14:17 Empagliflozin PHA 09/28/24 In Process (Jardiance) 10:00 Bilat Lower Dvt US 09/27/24 Resulted 14:24 Nm Vq Scan NM 09/27/24 Logged 17:18 Daily Weight DEBRA 09/27/24 In Process 17:18 Strict I & O DEBRA 09/27/24 In Process 17:18 Visit Coding Cardiology RES Date of Service: Sep 28, 2024 Billing Provider: LILIYA GARCES Sr., MD Cardiology Common Codes: [id number] HOSP CARE(MAX Hyde Sep 28, 2024 08:05
[2024-09-28] MEDS: cefTRIAXone 1GM/50ML D5W 50 ML IV SCH (08:46)
[2024-09-28] MEDS: EMPAGLIFLOZIN 10 MG TAB PO SCH (08:53)
[2024-09-28] MEDS ORDERED: PATIENTS OWN MEDICATION (Atorvastatin Calcium 1 TAB) PO SCH (10:00)
[2024-09-28 11:07] LABS: Chloride 104 mmol/L (98-107); Potassium 3.9 mmol/L (3.5-5.1); Sodium 142 mmol/L (136-145)
[2024-09-28 11:08] LABS: Anion Gap 8 (5-15); Calcium 9.2 mg/dL (8.7-10.4); Carbon Dioxide 30 mmol/L (20-31)
[2024-09-28 11:13] LABS: Glucose 86 mg/dL (74-106)
[2024-09-28 11:14] LABS: BUN/Creatinine Ratio 25.2 (10.0-20.0)
[2024-09-28 11:16] LABS: Blood Urea Nitrogen 32 mg/dL (9-23)
--- NOTE | 2024-09-28 12:08 | DVHPN2 ---
Reviewed: Care Plan, H&P, Labs, Medications, Previous Orders, Radiology Changes from previous H/P or p: No Changes Objective Vitals Vital Signs Date Time Temp Pulse Resp B/P (MAP) Pulse Ox O2 Delivery O2 Flow Rate FiO2 09/28/24 10:00 98 Nasal Cannula 4.0 09/28/24 10:00 36 09/28/24 09:00 96.5 60 20 94/44 (61) 96.5 Intake/Output Intake and Output 09/28/24 07:00 Intake Total 1700 ml Output Total 1700 ml Balance 0 ml Intake Oral 1700 ml Output Urine Total 1700 ml # Bowel Movements 1 Medications Current Medications Medications Dose Ordered Sig/Leonard Route Start Time Stop Time Status Last Admin Dose Admin Furosemide 20 mg BIDD IV 09/27/24 06:00 09/28/24 05:16 20 MG Apixaban 5 mg BID PO 09/27/24 10:00 09/28/24 08:46 5 MG Albuterol 2.5 mg Q6HPRN PRN NEB 09/26/24 22:45 Allopurinol 300 mg DAILY PO 09/27/24 10:00 09/28/24 08:46 300 MG Atorvastatin Calcium 40 mg HS PO 09/27/24 22:00 09/27/24 22:40 40 MG Acetaminophen/ Hydrocodone Bitart 1 tab Q4HP PRN PO 09/26/24 22:45 09/27/24 06:47 1 TAB Ondansetron HCl 4 mg Q4HP PRN IV 09/26/24 22:45 Acetaminophen 650 mg Q6HP PRN PO 09/26/24 22:45 Ceftriaxone Sodium 50 ml @ 100 mls/hr DAILY@09 IV 09/28/24 09:00 09/28/24 08:46 100 MLS/HR Clindamycin Phosphate 50 ml @ 50 mls/hr Q8HR IV 09/27/24 14:00 09/28/24 05:15 50 MLS/HR Oxycodone HCl 10 mg TID PO 09/27/24 14:00 09/28/24 05:17 10 MG Empaglifozin 10 mg DAILY PO 09/28/24 10:00 Patient Own Medication 1 tab DAILY PO 09/28/24 10:00 UNV Laboratory Results Laboratory Tests 09/26/24 21:25 09/28/24 08:50 Chemistry Test 09/28/24 08:50 Calcium Level 9.2 mg/dL (8.7-10.4) Urinalysis Test 09/27/24 03:30 Urine Color Light-yellow (Yellow) Urine Clarity Clear (Clear) Urine pH 5.0 (5.0-9.0) Urine Specific [place] 1.014 (1.001-1.035) Urine Protein Negative (Negative) Urine Ketones Negative (Negative) Urine Blood Negative /uL (Negative) Urine Nitrite Negative (Negative) Urine Bilirubin Negative (Negative) Urine Urobilinogen Normal mg/dL (Negative) Urine Leukocyte Esterase Negative /uL (Negative) Urine RBC 1 /hpf (0 - 4) Urine Microscopic WBC 2 /HPF (0-5) Urine Squamous Epithelial Cells None seen /hpf (<5) Urine Bacteria Few /hpf (None Seen) H Urine Hyaline Casts Many /lpf (0 - 2) Urine Mucus Few (None Seen) Urine Yeast (Budding) Loaded /hpf (None Seen) Urine Glucose Trace mg/dL (Normal) Labs and/or images reviewed: Labs reviewed by me, Image(s) reviewed by me Assessment/Plan Assessment/Plan Acute on chronic hypoxic respiratory failure: Acute on chronic diastolic congestive heart failure with ejection fraction 60 percent: Lasmaria m cardiology consult appreciated, planning for left heart catheterization on 09/29/2024 Paroxysmal atrial fibrillation: Continue Eliquis Hypertensive heart disease COPD possible exacerbation Acute cystitis Chronic right hip pain secondary to osteoarthritis History of gout Hypokalemia Hypomagnesemia Morbid obesity Time spent 55 minutes Patient is hospice revoked Robbi Pinzon [phone] at bedside Patient was on [facility] Kun [phone] at bedside Plan discussed with: Patient Date of Service: Sep 28, 2024 Billing Provider: NICOL ROMAN MD Common Visit Codes: [id number] INP/OBS CARE(HIGH) NICOL ROMAN MD Sep 28, 2024 12:08
[2024-09-29] VITALS (19 sets, daily range): BP systolic 90–131; BP diastolic 50–89; PULSE 60–120; RESP 16–19; TEMP 97.3–97.7; O2SAT 92–97
--- NOTE | 2024-09-29 07:24 | ECG ---
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
[2024-09-29 07:26] LABS: INR 1.24 (0.9-1.15); Prothrombin Time 12.9 sec (9.3-11.8)
--- NOTE | 2024-09-29 11:35 | DVHPN2 ---
Reviewed: Care Plan, H&P, Labs, Medications, Previous Orders, Radiology Changes from previous H/P or p: No Changes Objective Vitals Vital Signs Date Time Temp Pulse Resp B/P (MAP) Pulse Ox O2 Delivery O2 Flow Rate FiO2 09/29/24 09:53 97.6 76 17 114/57 (76) 95 97.6 09/29/24 06:16 Nasal Cannula 5.0 09/29/24 06:16 40 Intake/Output Intake and Output 09/29/24 07:00 Intake Total 1940 ml Output Total 3100 ml Balance -1160 ml Intake Oral 1840 ml IV Total 100 ml Output Urine Total 3100 ml Medications Current Medications Medications Dose Ordered Sig/Leonard Route Start Time Stop Time Status Last Admin Dose Admin Furosemide 20 mg BIDD IV 09/27/24 06:00 09/29/24 06:24 20 MG Albuterol 2.5 mg Q6HPRN PRN NEB 09/26/24 22:45 Allopurinol 300 mg DAILY PO 09/27/24 10:00 09/29/24 09:21 300 MG Atorvastatin Calcium 40 mg HS PO 09/27/24 22:00 09/28/24 21:31 40 MG Acetaminophen/ Hydrocodone Bitart 1 tab Q4HP PRN PO 09/26/24 22:45 09/29/24 00:08 1 TAB Ondansetron HCl 4 mg Q4HP PRN IV 09/26/24 22:45 Acetaminophen 650 mg Q6HP PRN PO 09/26/24 22:45 Ceftriaxone Sodium 50 ml @ 100 mls/hr DAILY@09 IV 09/28/24 09:00 09/29/24 09:20 100 MLS/HR Clindamycin Phosphate 50 ml @ 50 mls/hr Q8HR IV 09/27/24 14:00 09/29/24 06:23 50 MLS/HR Oxycodone HCl 10 mg TID PO 09/27/24 14:00 09/29/24 06:24 10 MG Empaglifozin 10 mg DAILY PO 09/28/24 10:00 09/29/24 09:21 10 MG Patient Own Medication 1 tab DAILY PO 09/28/24 10:00 UNV Laboratory Results Laboratory Tests 09/26/24 21:25 09/28/24 08:50 Coagulation Test 09/29/24 04:45 Prothrombin Time 12.9 sec (9.3-11.8) H Prothrombin Time INR 1.24 (0.9-1.15) H Activated Partial Thromboplast Time 31.0 SEC (24.5-34.5) Urinalysis Test 09/27/24 03:30 Urine Color Light-yellow (Yellow) Urine Clarity Clear (Clear) Urine pH 5.0 (5.0-9.0) Urine Specific [place] 1.014 (1.001-1.035) Urine Protein Negative (Negative) Urine Ketones Negative (Negative) Urine Blood Negative /uL (Negative) Urine Nitrite Negative (Negative) Urine Bilirubin Negative (Negative) Urine Urobilinogen Normal mg/dL (Negative) Urine Leukocyte Esterase Negative /uL (Negative) Urine RBC 1 /hpf (0 - 4) Urine Microscopic WBC 2 /HPF (0-5) Urine Squamous Epithelial Cells None seen /hpf (<5) Urine Bacteria Few /hpf (None Seen) H Urine Hyaline Casts Many /lpf (0 - 2) Urine Mucus Few (None Seen) Urine Yeast (Budding) Loaded /hpf (None Seen) Urine Glucose Trace mg/dL (Normal) Labs and/or images reviewed: Labs reviewed by me, Image(s) reviewed by me Assessment/Plan Assessment/Plan Acute on chronic hypoxic respiratory failure: Acute on chronic diastolic congestive heart failure with ejection fraction 60 percent: Leo cardiology consult appreciated, planning for left heart catheterization on 09/29/2024 Paroxysmal atrial fibrillation: History of cardioversion; Continue Eliquis Hypertensive heart disease COPD possible exacerbation Acute cystitis Chronic right hip pain secondary to osteoarthritis History of gout Hypokalemia Hypomagnesemia Morbid obesity Time spent 55 minutes Patient is hospice revoked Robbi Pinzon [phone] at bedside Patient was on [place] [facility] Kun [phone] at bedside Patient does not want to go back on hospice Plan discussed with: Patient Date of Service: Sep 29, 2024 Billing Provider: NICOL ROMAN MD Common Visit Codes: [id number] INP/OBS CARE(HIGH) NICOL ROMAN MD Sep 29, 2024 11:35
[2024-09-29] MEDS: IODIXANOL 320MG/ML 100ML BTL IV ONE ×2 (12:52→14:40)
[2024-09-29] MEDS: VERAPAMIL 2.5MG/ML INJ 2ML VIAL IV ONE (14:09)
[2024-09-29] MEDS: HEPARIN SODIUM (PORCINE) 5000 UNITS/ML 1ML VIAL ONE (14:09)
[2024-09-29] MEDS: ANGIOMAX 250 MG VIAL IV ONE (14:09)
[2024-09-29] MEDS: SODIUM CHL 0.9% 0 ML ONE (14:10)
[2024-09-29] MEDS: fentaNYL CITRATE 100 MCG/2 ML VL ONE (14:10)
[2024-09-29] MEDS: MIDAZOLAM HCL 2MG/2ML 2ml VIAL (1mg/ml) ONE ×2 (14:10→15:03)
[2024-09-29] MEDS: LIDOCAINE 2%HCL (LOCAL ANESTH.) INJ 20ML MDV ONE (14:10)
--- NOTE | 2024-09-29 16:05 | DVHOP2 ---
Operative Report - 2 Report Details Date: 09/29/24 Preop Diagnosis: Pulmonary hypertension Postop Diagnosis: Mild pulmonary hypertension. Cardiomyopathy. Surgeon: Liliya Julio MD Anesthesiologist: Conscious sedation Anesthesia: Mac, Local Consent: The patient was informed of the risks and benefits of the procedure. These inclu de but are not limited to complications of anesthesia, postoperative infection, incomplete relief of symptoms, recurrence of symptoms, damage to blood vessels, nerves and tendons, deep venous thrombosis, pulmonary embolism and possible need for repeat surgery in the future. Complications: No complications Findings: Mild pulmonary hypertension Indications for Surgery: Cardiomyopathy Name of Procedure Performed Right and left heart catheterization. Bilateral cine coronary angiography. Left ventriculography. Procedure Details Procedure Details: Prior local anesthesia with 2% lidocaine to the right wrist and antecubital area we placed a six Hebrew sheath into the antecubital vein and placed a Ethan-Yuly catheter into the right atrium right ventricle pulmonary artery and capillary wedge pressure positions where pressures were obtained and recorded. Cardiac outputs were determined by the thermodilution technique in triplicate. Pullback was also performed. Through the radial artery placed a six Hebrew sheath and placed a multipurpose catheter to evaluate both right and left coronary ostia and ventriculography without complications Hemodynamics: Right atrium was 10 with a right ventricular pressure of 43/10. A pulmonary artery pressure of 52 over 24. He capillary wedge pressure of 10 a proximally. Mean pulmonary artery pressure 24. Cardiac output is 3.6 by the thermodilution technique. Coronary anatomy the RCA is a large vessel it is codominant. It gives rise to the PDA and posterolateral branches which are normal. The mid RCA has a 50-60% stenosis at its mid section. No critical lesions present Left main is large and normal. Left anterior descending is large and normal with diagonals free of significant disease The intermediate artery is large and normal The circumflex is large with the obtuse marginal branches and posterolateral branches that are normal Ventriculography in the MAC projection shows an EF of 40% with global hypokinesis Impression: Normal left ventricular end-diastolic pressure was with pulmonary hypertension. Decreased left ventricular ejection fraction. Mild CAD involving the RCA Recommendations medical therapy is warranted. Continue with the risk factor modification. Condition Fair Disposition Still a Patient Date of Service: Sep 29, 2024 Billing Provider: LILIYA JULIO Sr., MD Cardiology Common Codes: PROCEDURE ONLY Cardiology Procedure Codes: 62560-[id number] HEART CATH W/INTRA INJ, 60220-S/R & L HEART CATH FOR LVG, 48626-LLF & PLCMT OF FLOW DIR CATH LILIYA JULIO Sr., MD Sep 29, 2024 16:05
[2024-09-29] MEDS: OXYCODONE W/ ACETAMINOPHEN 5/325MG TABLET PO ONE (16:29)
[2024-09-29] MEDS: SACUBITRIL-VALSARTAN 24mg/26mg TAB PO SCH (21:37)
[2024-09-29] MEDS: SILDENAFIL CITRATE 20 MG TAB PO SCH (21:38)
[2024-09-30] VITALS (13 sets, daily range): BP systolic 92–123; BP diastolic 50–81; PULSE 60–100; RESP 14–20; TEMP 97–98; O2SAT 90–99
[2024-09-30] MEDS: ALBUTEROL SULF 2.5 MG/0.5ML(0.5%) NEB SOLN NEB PRN (08:39)
--- NOTE | 2024-09-30 11:44 | DVHPN2 ---
Reviewed: Care Plan, H&P, Labs, Medications, Previous Orders, Radiology Changes from previous H/P or p: No Changes Objective Vitals Vital Signs Date Time Temp Pulse Resp B/P (MAP) Pulse Ox O2 Delivery O2 Flow Rate FiO2 09/30/24 10:29 95 Nasal Cannula* 4 36 09/30/24 08:53 97.8 60 16 123/81 (95) 97.8 Intake/Output Intake and Output 09/30/24 07:00 Intake Total 1660 ml Output Total 1700 ml Balance -40 ml Intake Oral 1560 ml IV Total 100 ml Output Urine Total 1700 ml # Bowel Movements 1 Medications Current Medications Medications Dose Ordered Sig/Leonard Route Start Time Stop Time Status Last Admin Dose Admin Furosemide 20 mg BIDD IV 09/27/24 06:00 09/30/24 06:44 20 MG Albuterol 2.5 mg Q6HPRN PRN NEB 09/26/24 22:45 09/30/24 08:39 2.5 MG Allopurinol 300 mg DAILY PO 09/27/24 10:00 09/30/24 09:41 300 MG Atorvastatin Calcium 40 mg HS PO 09/27/24 22:00 09/29/24 21:39 40 MG Acetaminophen/ Hydrocodone Bitart 1 tab Q4HP PRN PO 09/26/24 22:45 09/30/24 09:44 1 TAB Ondansetron HCl 4 mg Q4HP PRN IV 09/26/24 22:45 Acetaminophen 650 mg Q6HP PRN PO 09/26/24 22:45 Ceftriaxone Sodium 50 ml @ 100 mls/hr DAILY@09 IV 09/28/24 09:00 09/30/24 09:40 100 MLS/HR Clindamycin Phosphate 50 ml @ 50 mls/hr Q8HR IV 09/27/24 14:00 09/30/24 06:40 50 MLS/HR Oxycodone HCl 10 mg TID PO 09/27/24 14:00 09/30/24 06:39 10 MG Empaglifozin 10 mg DAILY PO 09/28/24 10:00 09/30/24 09:41 10 MG Patient Own Medication 1 tab DAILY PO 09/28/24 10:00 UNV Sacubitril/ Valsartan 0.5 tab BID PO 09/29/24 22:00 09/30/24 09:41 0.5 TAB Sildenafil Citrate 20 mg TID@08,14,20 PO 09/29/24 20:00 09/30/24 09:40 20 MG Laboratory Results Laboratory Tests 09/26/24 21:25 09/28/24 08:50 Urinalysis Test 09/27/24 03:30 Urine Color Light-yellow (Yellow) Urine Clarity Clear (Clear) Urine pH 5.0 (5.0-9.0) Urine Specific [place] 1.014 (1.001-1.035) Urine Protein Negative (Negative) Urine Ketones Negative (Negative) Urine Blood Negative /uL (Negative) Urine Nitrite Negative (Negative) Urine Bilirubin Negative (Negative) Urine Urobilinogen Normal mg/dL (Negative) Urine Leukocyte Esterase Negative /uL (Negative) Urine RBC 1 /hpf (0 - 4) Urine Microscopic WBC 2 /HPF (0-5) Urine Squamous Epithelial Cells None seen /hpf (<5) Urine Bacteria Few /hpf (None Seen) H Urine Hyaline Casts Many /lpf (0 - 2) Urine Mucus Few (None Seen) Urine Yeast (Budding) Loaded /hpf (None Seen) Urine Glucose Trace mg/dL (Normal) Labs and/or images reviewed: Labs reviewed by me, Image(s) reviewed by me Assessment/Plan Assessment/Plan Acute on chronic hypoxic respiratory failure: Acute on chronic diastolic congestive heart failure with ejection fraction 60 percent: Lasix Status post left heart catheterization by Dr. Julio on 09/29/2024 with the findings of mild right coronary artery CAD, advised aggressive risk factor management Paroxysmal atrial fibrillation: History of cardioversion; Continue Eliquis Hypertensive heart disease COPD possible exacerbation Acute cystitis Chronic right hip pain secondary to osteoarthritis History of gout Hypokalemia Hypomagnesemia Morbid obesity V/Q scan pending for Wednesday TAMICA Gibbons at bedside Plan discussed with: Patient, Other (TAMICA Gibbons) My Orders Orders - NICOL ROMAN MD Procedure Category Date Status Time * [employer] Program Director CONS 09/29/24 Transmitted Consult Transfer Orders XFER 09/29/24 Transmitted 11:56 * Wound Consult CONS 09/29/24 Transmitted Date of Service: Sep 30, 2024 Billing Provider: NICOL ROMAN MD Common Visit Codes: [id number] INP/OBS CARE(HIGH) NICOL ROMAN MD Sep 30, 2024 11:44
[2024-10-01] VITALS (13 sets, daily range): BP systolic 97–132; BP diastolic 54–78; PULSE 64–123; RESP 14–20; TEMP 96.4–98; O2SAT 93–98
[2024-10-01 06:13] LABS: Alanine Aminotransferase < 9 U/L (7-40); Albumin 3.8 g/dL (3.2-4.8); Alkaline Phosphatase 109 U/L (46-116); Anion Gap 13 (5-15); Aspartate Aminotransferase 19 U/L (<34); BUN/Creatinine Ratio 13.8 (10.0-20.0); Blood Urea Nitrogen 13 mg/dL (9-23); Calcium 9.2 mg/dL (8.7-10.4); Carbon Dioxide 28 mmol/L (20-31); Chloride 101 mmol/L (98-107); Glucose 121 mg/dL (74-106); Potassium 3.5 mmol/L (3.5-5.1); Sodium 142 mmol/L (136-145); Total Protein 6.6 g/dL (5.7-8.2)
--- NOTE | 2024-10-01 11:11 | DVHPN2 ---
Reviewed: Care Plan, H&P, Labs, Medications, Previous Orders, Radiology Changes from previous H/P or p: No Changes Objective Vitals Vital Signs Date Time Temp Pulse Resp B/P (MAP) Pulse Ox O2 Delivery O2 Flow Rate FiO2 10/01/24 08:58 97.6 64 18 120/78 (92) 97 97.6 10/01/24 06:54 Nasal Cannula* 6 44 Intake/Output Intake and Output 10/01/24 07:00 Intake Total 990 ml Output Total 2200 ml Balance -1210 ml Intake Oral 940 ml IV Total 50 ml Output Urine Total 2200 ml Medications Current Medications Medications Dose Ordered Sig/Leonard Route Start Time Stop Time Status Last Admin Dose Admin Furosemide 20 mg BIDD IV 09/27/24 06:00 10/01/24 05:44 20 MG Albuterol 2.5 mg Q6HPRN PRN NEB 09/26/24 22:45 10/01/24 06:54 2.5 MG Allopurinol 300 mg DAILY PO 09/27/24 10:00 10/01/24 10:02 300 MG Atorvastatin Calcium 40 mg HS PO 09/27/24 22:00 09/30/24 21:58 40 MG Acetaminophen/ Hydrocodone Bitart 1 tab Q4HP PRN PO 09/26/24 22:45 10/01/24 10:11 1 TAB Ondansetron HCl 4 mg Q4HP PRN IV 09/26/24 22:45 Acetaminophen 650 mg Q6HP PRN PO 09/26/24 22:45 Ceftriaxone Sodium 50 ml @ 100 mls/hr DAILY@09 IV 09/28/24 09:00 10/01/24 10:02 100 MLS/HR Clindamycin Phosphate 50 ml @ 50 mls/hr Q8HR IV 09/27/24 14:00 10/01/24 05:45 50 MLS/HR Oxycodone HCl 10 mg TID PO 09/27/24 14:00 10/01/24 05:45 10 MG Empaglifozin 10 mg DAILY PO 09/28/24 10:00 10/01/24 10:02 10 MG Patient Own Medication 1 tab DAILY PO 09/28/24 10:00 UNV Sacubitril/ Valsartan 0.5 tab BID PO 09/29/24 22:00 10/01/24 10:02 0.5 TAB Sildenafil Citrate 20 mg TID@08,14,20 PO 09/29/24 20:00 10/01/24 10:02 20 MG Laboratory Results Laboratory Tests 09/26/24 21:25 10/01/24 04:47 Chemistry Test 10/01/24 04:47 Albumin 3.8 g/dL (3.2-4.8) Calcium Level 9.2 mg/dL (8.7-10.4) Total Protein 6.6 g/dL (5.7-8.2) LFT Test 10/01/24 04:47 Alanine Aminotransferase (ALT) < 9 U/L (7-40) Alkaline Phosphatase 109 U/L (46-116) Aspartate Amino Transferase (AST) 19 U/L (<34) Total Bilirubin 1.0 mg/dL (0.2-1.0) Urinalysis Test 09/27/24 03:30 Urine Color Light-yellow (Yellow) Urine Clarity Clear (Clear) Urine pH 5.0 (5.0-9.0) Urine Specific [place] 1.014 (1.001-1.035) Urine Protein Negative (Negative) Urine Ketones Negative (Negative) Urine Blood Negative /uL (Negative) Urine Nitrite Negative (Negative) Urine Bilirubin Negative (Negative) Urine Urobilinogen Normal mg/dL (Negative) Urine Leukocyte Esterase Negative /uL (Negative) Urine RBC 1 /hpf (0 - 4) Urine Microscopic WBC 2 /HPF (0-5) Urine Squamous Epithelial Cells None seen /hpf (<5) Urine Bacteria Few /hpf (None Seen) H Urine Hyaline Casts Many /lpf (0 - 2) Urine Mucus Few (None Seen) Urine Yeast (Budding) Loaded /hpf (None Seen) Urine Glucose Trace mg/dL (Normal) Labs and/or images reviewed: Labs reviewed by me, Image(s) reviewed by me Assessment/Plan Assessment/Plan Acute on chronic hypoxic respiratory failure: Acute on chronic diastolic congestive heart failure with ejection fraction 60 percent: Lasix Status post left heart catheterization by Dr. Julio on 09/29/2024 with the findings of mild right coronary artery disease, advised aggressive risk factor management Paroxysmal atrial fibrillation: History of cardioversion; Continue Eliquis Hypertensive heart disease COPD possible exacerbation Acute cystitis Chronic right hip pain secondary to osteoarthritis History of gout Hypokalemia Hypomagnesemia Morbid obesity V/Q scan pending for Wednesday TAMICA Gibbons at bedside Plan discussed with: Patient My Orders Orders - NICOL ROMAN MD Procedure Category Date Status Time Cover Wound With Dry DEBRA 09/30/24 In Process Dressing 10:50 * Cafeteria Aide CONS 09/30/24 Transmitted Consult Date of Service: Oct 01, 2024 Billing Provider: NICOL ROMAN MD Common Visit Codes: [id number] INP/OBS CARE(HIGH) NICOL ROMAN MD Oct 01, 2024 11:11
[2024-10-01] MEDS: ONDANSETRON HCL 4 MG/2 ML VIAL IV PRN (16:15)
[2024-10-02] VITALS (13 sets, daily range): BP systolic 90–118; BP diastolic 39–80; PULSE 63–99; RESP 17–21; TEMP 96.4–97.9; O2SAT 83–95
--- NOTE | 2024-10-02 09:00 | DVHPNRES ---
Progress Note Date Seen: Oct 02, 2024 Resident Creating Document: MAX BETTS RESIDENT Medical Necessity Reason Pt with a Central, PICC or Fol: Yes The following are medically ne: Swartz Catheter Reason for swartz catheter: Total Immobilization Subjective Review of Systems Patient seen and examined at bedside, patient notes significant improvement in shortness of breath and dyspnea, however, remains on 6 L of O2 via NC. Objective vital signs Vital Sign Date Time Temp Pulse Resp B/P (MAP) Pulse Ox O2 Delivery O2 Flow Rate FiO2 10/02/24 06:44 92 Nasal Cannula 6.0 10/02/24 06:44 44 10/02/24 05:18 112/72 10/02/24 05:00 97.5 84 19 97.5 Total Intake and Output 10/01/24 10/01/24 10/02/24 14:59 22:59 06:59 Intake Total 50 ml 530 ml 260 ml Output Total 550 ml 150 ml Balance 50 ml -20 ml 110 ml medications Current Medications Medications Dose Ordered Sig/Leonard Route Start Time Stop Time Status Last Admin Dose Admin Furosemide 20 mg BIDD IV 09/27/24 06:00 10/02/24 05:18 20 MG Albuterol 2.5 mg Q6HPRN PRN NEB 09/26/24 22:45 10/01/24 06:54 2.5 MG Allopurinol 300 mg DAILY PO 09/27/24 10:00 10/02/24 08:40 300 MG Atorvastatin Calcium 40 mg HS PO 09/27/24 22:00 10/01/24 21:16 40 MG Acetaminophen/ Hydrocodone Bitart 1 tab Q4HP PRN PO 09/26/24 22:45 10/02/24 08:52 1 TAB Ondansetron HCl 4 mg Q4HP PRN IV 09/26/24 22:45 10/01/24 16:15 4 MG Acetaminophen 650 mg Q6HP PRN PO 09/26/24 22:45 Ceftriaxone Sodium 50 ml @ 100 mls/hr DAILY@09 IV 09/28/24 09:00 10/02/24 08:39 100 MLS/HR Clindamycin Phosphate 50 ml @ 50 mls/hr Q8HR IV 09/27/24 14:00 10/02/24 05:19 50 MLS/HR Oxycodone HCl 10 mg TID PO 09/27/24 14:00 10/02/24 05:19 10 MG Empaglifozin 10 mg DAILY PO 09/28/24 10:00 10/02/24 08:40 10 MG Patient Own Medication 1 tab DAILY PO 09/28/24 10:00 UNV Sacubitril/ Valsartan 0.5 tab BID PO 09/29/24 22:00 10/02/24 08:39 0.5 TAB Sildenafil Citrate 20 mg TID@08,14,20 PO 09/29/24 20:00 10/02/24 08:39 20 MG Examination General Appearance: Cooperative. Well developed. Well nourished. In [id number] distress, titrated O2 from 5 L to 6 L per patient's request Head Exam: Normal inspection Neck Exam: Normal inspection. Non-tender. Normal alignment Pulmonary/Respiratory: Chest non-tender. Decreased bilateral breath sounds L>R, no crackles, trace wheezing. Cardiovascular/Chest: Regular rate and rhythm. murmur. No JVD. Abdominal Exam: Normal bowel sounds. Soft. normal abdomen, no visible veins, Nontender. No hepatospenomegaly. No masses Ankle Exam: Trace pitting ankle edema Lower extremities: 3+ bilateral lower extremity nonpitting edema Neuro/Mental Status: A&O x4. Coherent. Thoughts/Psych: Normal thought pattern. Appropriate mood and affect. Good judgement and insight Skin Exam: Stasis dermatitis noted on bilateral lower extremities laboratory and microbiology Laboratory Tests 10/01/24 04:47 09/26/24 21:25 Test 10/01/24 04:47 Range/Units Serum Glucose 121 H 74-106 mg/dL Labs and/or images reviewed: Labs reviewed by me, Image(s) reviewed by me Problem List/Assessment/Plan Problem List/Assessment/Plan Chronic systolic heart failure with low-now improved ejection fraction, NYHA class 4 Atrial fibrillation, likely persistent. Chads Vasc 5 points, has bled 3 point Possible pulmonary hypertension with PA pressure 40-45mmHg in May 13, 39mmHg October 11 Acute on chronic hypoxic respiratory failure likely due to pulmonary hypertension, normal left filling pressures Rule out obstructive sleep apnea COPD on home oxygen 3-5 L Moderate To severe tricuspid regurgitation Moderate to severe mitral regurgitation Bilateral lower extremity cellulitis versus stasis dermatitis Morbid obesity, class 3 Plan: * Serum BNP 841 * Echocardiogram from April 2024 EF 55% (improved from 30% in 2022). Biatrial enlargement. PA 40-45 mmHg. Small-moderate pericardial effusion. * Holding off beta-keyon and BEBO inhibitors * V/Q scan to evaluate for CTEPH * Patient completed right and left heart catheterization which showed right ventricular pressure 43/10, pulmonary artery pressure 52/24, mean pulmonary artery pressure 24 * Ordered repeat echocardiogram; Technically difficult study. Underlying atrial fibrillation. Notable right ventricular and right atrial enlargement. Left atrial enlargement. The aortic root is within normal limits. The mitral and tricuspid are structurally normal. The aortic valve is mildly calcified at the left and right coronary cusps however good mobility of the aortic leaflets. Left ventricular systolic function is preserved at 60%. There is a volume/pressure overload of the right ventricle with doming of the interventricular septum in systole and diastole. The right ventricular free is mobile yet hypokinetic. There is [id number] mitral and tricuspid regurgitation. There is a small pericardial effusion not hemodynamically significant. No intracardiac masses or vegetations discernible. * Continue IV Lasix * Resume anticoagulation * Sildenafil 20 mg t.i.d. * Entresto as blood pressure allows * Daily weights * Strict I&Os * Antibiotics as per hospitalist Thank you so much for the opportunity to consult on your patient. Cardiology team will sign off. In case of any questions or concerns please feel free to reach out. Plan discussed with Dr. Reddy Plan discussed with: Patient, Other (RN) Dietary Evaluation Review Recommendations by RD: Dietary education by RD Comments: 1) Encourage optimal PO intake 2) Refer to outpatient RD for weight management 3) Follow-up with cardiology, pulmonology, and nephrology 4) Continue to monitor I&O, labs, and skin integrity Expected Outcomes/Goals: 1) appetite and labs to improve 2) wounds to improve 3) f/u in 3-5 days Visit Coding Cardiology RES Date of Service: Oct 02, 2024 Billing Provider: KVNG REDDY MD Cardiology Common Codes: [id number] [facility] C[facility] RESIDENT Oct 02, 2024 09:00
--- NOTE | 2024-10-02 12:35 | DVHPN2 ---
Reviewed: Care Plan, H&P, Labs, Medications, Previous Orders, Radiology Changes from previous H/P or p: No Changes Objective Vitals Vital Signs Date Time Temp Pulse Resp B/P (MAP) Pulse Ox O2 Delivery O2 Flow Rate FiO2 10/02/24 10:00 94 Nasal Cannula 6.0 10/02/24 10:00 44 10/02/24 08:30 97.4 69 17 96/55 (69) 97.4 Intake/Output Intake and Output 10/02/24 07:00 Intake Total 840 ml Output Total 700 ml Balance 140 ml Intake Oral 740 ml IV Total 100 ml Output Urine Total 700 ml # Bowel Movements 2 Medications Current Medications Medications Dose Ordered Sig/Leonard Route Start Time Stop Time Status Last Admin Dose Admin Furosemide 20 mg BIDD IV 09/27/24 06:00 10/02/24 05:18 20 MG Albuterol 2.5 mg Q6HPRN PRN NEB 09/26/24 22:45 10/01/24 06:54 2.5 MG Allopurinol 300 mg DAILY PO 09/27/24 10:00 10/02/24 08:40 300 MG Atorvastatin Calcium 40 mg HS PO 09/27/24 22:00 10/01/24 21:16 40 MG Acetaminophen/ Hydrocodone Bitart 1 tab Q4HP PRN PO 09/26/24 22:45 10/02/24 08:52 1 TAB Ondansetron HCl 4 mg Q4HP PRN IV 09/26/24 22:45 10/01/24 16:15 4 MG Acetaminophen 650 mg Q6HP PRN PO 09/26/24 22:45 Ceftriaxone Sodium 50 ml @ 100 mls/hr DAILY@09 IV 09/28/24 09:00 10/02/24 08:39 100 MLS/HR Clindamycin Phosphate 50 ml @ 50 mls/hr Q8HR IV 09/27/24 14:00 10/02/24 05:19 50 MLS/HR Oxycodone HCl 10 mg TID PO 09/27/24 14:00 10/02/24 05:19 10 MG Empaglifozin 10 mg DAILY PO 09/28/24 10:00 10/02/24 08:40 10 MG Patient Own Medication 1 tab DAILY PO 09/28/24 10:00 UNV Sacubitril/ Valsartan 0.5 tab BID PO 09/29/24 22:00 10/02/24 08:39 0.5 TAB Sildenafil Citrate 20 mg TID@08,14,20 PO 09/29/24 20:00 10/02/24 08:39 20 MG Laboratory Results Laboratory Tests 09/26/24 21:25 10/01/24 04:47 Urinalysis Test 09/27/24 03:30 Urine Color Light-yellow (Yellow) Urine Clarity Clear (Clear) Urine pH 5.0 (5.0-9.0) Urine Specific [place] 1.014 (1.001-1.035) Urine Protein Negative (Negative) Urine Ketones Negative (Negative) Urine Blood Negative /uL (Negative) Urine Nitrite Negative (Negative) Urine Bilirubin Negative (Negative) Urine Urobilinogen Normal mg/dL (Negative) Urine Leukocyte Esterase Negative /uL (Negative) Urine RBC 1 /hpf (0 - 4) Urine Microscopic WBC 2 /HPF (0-5) Urine Squamous Epithelial Cells None seen /hpf (<5) Urine Bacteria Few /hpf (None Seen) H Urine Hyaline Casts Many /lpf (0 - 2) Urine Mucus Few (None Seen) Urine Yeast (Budding) Loaded /hpf (None Seen) Urine Glucose Trace mg/dL (Normal) Labs and/or images reviewed: Labs reviewed by me, Image(s) reviewed by me Assessment/Plan Assessment/Plan Acute on chronic hypoxic respiratory failure: Acute on chronic diastolic congestive heart failure with ejection fraction 60 percent: Lasix Status post left heart catheterization by Dr. Julio on 09/29/2024 with the findings of mild right coronary artery disease, advised aggressive risk factor management Paroxysmal atrial fibrillation: History of cardioversion; Continue Eliquis Hypertensive heart disease COPD possible exacerbation Acute cystitis Chronic right hip pain secondary to osteoarthritis History of gout Hypokalemia Hypomagnesemia Morbid obesity V/Q scan canceled by chemical tank worker Savanah at bedside Plan discussed with: Patient Date of Service: Oct 02, 2024 Billing Provider: NICOL ROMAN MD Common Visit Codes: [id number] INP/OBS CARE(HIGH) NICOL ROMAN MD Oct 02, 2024 12:35
[2024-10-02] MEDS ORDERED: HYDR-4902 PO (12:37)
--- NOTE | 2024-10-02 12:48 | DVHDS2 ---
Discharge Summary Date of Admission Sep 26, 2024 at 22:32 Date of Discharge: Oct 02, 2024 Admitting Diagnosis Shortness of breath Wounds: Left heart catheterization Labs/Diagnostic Data: Laboratory Results Test 10/01/24 04:47 09/29/24 04:45 09/27/24 04:44 09/27/24 03:30 Sodium Level 142 mmol/L (136-145) Potassium Level 3.5 mmol/L (3.5-5.1) Chloride Level 101 mmol/L (98-107) Carbon Dioxide Level 28 mmol/L (20-31) Anion Gap 13 (5-15) Blood Urea Nitrogen 13 mg/dL (9-23) Creatinine 0.94 mg/dL (0.550-1.02) Glomerular Filtration Rate Calc 62 mL/min (>90) BUN/Creatinine Ratio 13.8 (10.0-20.0) Serum Glucose 121 mg/dL (74-106) Calcium Level 9.2 mg/dL (8.7-10.4) Total Bilirubin 1.0 mg/dL (0.2-1.0) Aspartate Amino Transferase (AST) 19 U/L (<34) Alanine Aminotransferase (ALT) < 9 U/L (7-40) Alkaline Phosphatase 109 U/L (46-116) Total Protein 6.6 g/dL (5.7-8.2) Albumin 3.8 g/dL (3.2-4.8) Prothrombin Time 12.9 sec (9.3-11.8) Prothrombin Time INR 1.24 (0.9-1.15) Activated Partial Thromboplast Time 31.0 SEC (24.5-34.5) Thyroid Stimulating Hormone (TSH) 1.31 uIU/mL (0.55-4.78) Urine Color Light-yellow (Yellow) Urine Clarity Clear (Clear) Urine pH 5.0 (5.0-9.0) Urine Specific [place] 1.014 (1.001-1.035) Urine Protein Negative (Negative) Urine Ketones Negative (Negative) Urine Blood Negative /uL (Negative) Urine Nitrite Negative (Negative) Urine Bilirubin Negative (Negative) Urine Urobilinogen Normal mg/dL (Negative) Urine Leukocyte Esterase Negative /uL (Negative) Urine RBC 1 /hpf (0 - 4) Urine Microscopic WBC 2 /HPF (0-5) Urine Squamous Epithelial Cells None seen /hpf (<5) Urine Bacteria Few /hpf (None Seen) Urine Hyaline Casts Many /lpf (0 - 2) Urine Mucus Few (None Seen) Urine Yeast (Budding) Loaded /hpf (None Seen) Urine Glucose Trace mg/dL (Normal) Test 09/27/24 00:07 09/26/24 21:25 Troponin I High Sensitivity 11 ng/L (</=34) White Blood Count 7.1 10^3/uL (4.4-10.8) Red Blood Count 4.62 10^6/uL (4.0-5.20) Hemoglobin 13.3 g/dL (12.2-16.2) Hematocrit 41.4 % (36.0-46.0) Mean Corpuscular Volume 89.6 fL (80.0-100.0) Mean Corpuscular Hemoglobin 28.8 pg (28.0-32.0) Mean Corpuscular Hemoglobin Concent 32.2 g/dL (32.0-36.0) Red Cell Distribution Width 17.4 % (11.8-14.3) Platelet Count 229 10^3/uL (140-450) Mean Platelet Volume 8.3 fL (6.9-10.8) Neutrophils (%) (Auto) 77.3 % (37.0-80.0) Lymphocytes (%) (Auto) 13.4 % (10.0-50.0) Monocytes (%) (Auto) 6.6 % (0.0-12.0) Eosinophils (%) (Auto) 2.1 % (0.0-7.0) Basophils (%) (Auto) 0.6 % (0.0-2.0) Neutrophils # (Auto) 5.5 10 ^3/uL (1.6-8.6) Lymphocytes # (Auto) 1.0 10 ^3/uL (0.4-5.4) Monocytes # (Auto) 0.5 10 ^3/uL (0-1.3) Eosinophils # (Auto) 0.2 10 ^3/uL (0-0.8) Basophils # (Auto) 0 10 ^3/uL (0-0.2) Nucleated Red Blood Cells 0.1 % B-Type Natriuretic Peptide 841.62 pg/mL (0-100) Other Laboratory Tests 10/01/24 04:47 09/26/24 21:25 Brief Hx & Hospital Course: 79-year-old female with a history of congestive heart failure chronic respiratory failure on home oxygen hypertension COPD chronic right hip pain secondary to osteoarthritis gout morbidly obese on hospice got admitted and revoked hospice. Patient came in for shortness of breaths found to have acute exacerbation of chronic diastolic congestive heart failure ejection fraction 60 percent treated with the Lasix left heart catheterization by Dr. Julio 09/29/2024 showed mild right coronary artery disease and pulmonary arterial hypertension. V/Q scan was ordered by Cardiology but later was canceled. Her home medications for comorbid conditions continued. Patient has marginally improved. She does not want to go back on hospice. Per patient's request discharged home on home health for physical therapy medication management and safety evaluation Consults/Reason for consult Cardiology Dr. Julio Operations or Procedures Left heart catheterization Condition at Discharge: Fair Final Diagnosis/Problems List Acute on chronic hypoxic respiratory failure: Acute on chronic diastolic congestive heart failure with ejection fraction 60 percent: Lasix Status post left heart catheterization by Dr. Julio on 09/29/2024 with the findings of mild right coronary artery disease, advised aggressive risk factor management Paroxysmal atrial fibrillation: History of cardioversion; Continue Eliquis Hypertensive heart disease COPD possible exacerbation Acute cystitis Chronic right hip pain secondary to osteoarthritis History of gout Hypokalemia Hypomagnesemia Morbid obesity V/Q scan canceled by safety risk lead Mae at bedside. Discharge Disposition: Home with Health Services Discharge Instruct/Medications Diet: Cardiac 2g Na,low cholest Activity: No Restrictions, As Tolerated Follow Up/Referral: Resume all previous home medications Follow up with your primary Dr Follow up with the Cardiology Dr. Julio two weeks Medications: Transmitted to pharmacy 35 (Time taken for discharge summary 35 mts) Discharge Statement: "Patient was advised to return to the ER or call 911 if any headaches, dizziness, shortness of breath, chest pain, abdominal pain, bleeding, fevers, or worsening of medical condition. Patient was counseled about treatment plan, medications, possible side effects, patientverbalized understanding. All questions were answered to the best of my ability. This discharge took greater then 30 minutes in planning, reviewing documentation, counseling the patient, and discussing with other team members." ASSESSMENT ASSESSMENT Hospital Course Marginally improved Assessment Acute on chronic hypoxic respiratory failure: Acute on chronic diastolic congestive heart failure with ejection fraction 60 percent: Lasix Status post left heart catheterization by Dr. Julio on 09/29/2024 with the findings of mild right coronary artery disease, advised aggressive risk factor management Paroxysmal atrial fibrillation: History of cardioversion; Continue Eliquis Hypertensive heart disease COPD possible exacerbation Acute cystitis Chronic right hip pain secondary to osteoarthritis History of gout Hypokalemia Hypomagnesemia Morbid obesity V/Q scan canceled by safety risk lead Savanah at bedside. Date of Service: Oct 02, 2024 Billing Provider: NICOL ROMAN MD Common Visit Codes: [id number] DISCH DAY >30min NICOL ROMAN MD Oct 02, 2024 12:48
[2024-10-03] VITALS (12 sets, daily range): BP systolic 90–120; BP diastolic 50–84; PULSE 63–110; RESP 16–21; TEMP 95.9–98; O2SAT 93–100
[2024-10-04] VITALS (12 sets, daily range): BP systolic 100–122; BP diastolic 58–75; PULSE 60–120; RESP 16–18; TEMP 97.8–98.7; O2SAT 93–98
--- NOTE | 2024-10-04 11:09 | DVHPN2 ---
Reviewed: Care Plan, H&P, Labs, Medications, Previous Orders, Radiology Changes from previous H/P or p: No Changes Objective Vitals Vital Signs Date Time Temp Pulse Resp B/P (MAP) Pulse Ox O2 Delivery O2 Flow Rate FiO2 10/04/24 08:57 113 18 94 10/04/24 08:51 97.8 106/72 (83) 97.8 10/04/24 08:49 Nasal Cannula 5.0 10/04/24 08:49 40 Intake/Output Intake and Output 10/04/24 07:00 Intake Total 1430 ml Output Total 1850 ml Balance -420 ml Intake Oral 1280 ml IV Total 150 ml Output Urine Total 1850 ml Medications Current Medications Medications Dose Ordered Sig/Leonard Route Start Time Stop Time Status Last Admin Dose Admin Furosemide 20 mg BIDD IV 09/27/24 06:00 10/04/24 05:27 20 MG Albuterol 2.5 mg Q6HPRN PRN NEB 09/26/24 22:45 10/04/24 08:49 2.5 MG Allopurinol 300 mg DAILY PO 09/27/24 10:00 10/04/24 09:32 300 MG Atorvastatin Calcium 40 mg HS PO 09/27/24 22:00 10/03/24 21:13 40 MG Acetaminophen/ Hydrocodone Bitart 1 tab Q4HP PRN PO 09/26/24 22:45 10/04/24 09:38 1 TAB Ondansetron HCl 4 mg Q4HP PRN IV 09/26/24 22:45 10/04/24 09:37 4 MG Acetaminophen 650 mg Q6HP PRN PO 09/26/24 22:45 Ceftriaxone Sodium 50 ml @ 100 mls/hr DAILY@09 IV 09/28/24 09:00 10/04/24 09:33 100 MLS/HR Clindamycin Phosphate 50 ml @ 50 mls/hr Q8HR IV 09/27/24 14:00 10/04/24 05:27 50 MLS/HR Oxycodone HCl 10 mg TID PO 09/27/24 14:00 10/04/24 05:27 10 MG Empaglifozin 10 mg DAILY PO 09/28/24 10:00 10/04/24 09:38 10 MG Patient Own Medication 1 tab DAILY PO 09/28/24 10:00 UNV Sacubitril/ Valsartan 0.5 tab BID PO 09/29/24 22:00 10/04/24 09:32 0.5 TAB Sildenafil Citrate 20 mg TID@08,14,20 PO 09/29/24 20:00 10/04/24 09:33 20 MG Laboratory Results Laboratory Tests 09/26/24 21:25 10/01/24 04:47 Urinalysis Test 09/27/24 03:30 Urine Color Light-yellow (Yellow) Urine Clarity Clear (Clear) Urine pH 5.0 (5.0-9.0) Urine Specific [place] 1.014 (1.001-1.035) Urine Protein Negative (Negative) Urine Ketones Negative (Negative) Urine Blood Negative /uL (Negative) Urine Nitrite Negative (Negative) Urine Bilirubin Negative (Negative) Urine Urobilinogen Normal mg/dL (Negative) Urine Leukocyte Esterase Negative /uL (Negative) Urine RBC 1 /hpf (0 - 4) Urine Microscopic WBC 2 /HPF (0-5) Urine Squamous Epithelial Cells None seen /hpf (<5) Urine Bacteria Few /hpf (None Seen) H Urine Hyaline Casts Many /lpf (0 - 2) Urine Mucus Few (None Seen) Urine Yeast (Budding) Loaded /hpf (None Seen) Urine Glucose Trace mg/dL (Normal) Labs and/or images reviewed: Labs reviewed by me, Image(s) reviewed by me Assessment/Plan Assessment/Plan Acute on chronic hypoxic respiratory failure: Acute on chronic diastolic congestive heart failure with ejection fraction 60 percent: Lasix Status post left heart catheterization by Dr. Julio on 09/29/2024 with the findings of mild right coronary artery disease, advised aggressive risk factor management Paroxysmal atrial fibrillation: History of cardioversion; Continue Eliquis Hypertensive heart disease COPD possible exacerbation Acute cystitis Chronic right hip pain secondary to osteoarthritis History of gout Hypokalemia Hypomagnesemia Morbid obesity V/Q scan canceled by staging technician Darian at bedside Plan discussed with: Patient Date of Service: Oct 04, 2024 Billing Provider: NICOL ROMAN MD Common Visit Codes: [id number] INP/OBS CARE(HIGH) NICOL ROMAN MD Oct 04, 2024 11:09
[2024-10-04] MEDS: METOPROLOL SUCCINATE XL 50 MG TAB PO SCH (13:36)
== END 2024-10-04 19:09 | disposition home health service (06) | DRG 286 ==
LOC: ER 20:43 → EDBD 20:43 → OVERFLOW 22:32 → WEST WING 09-27 04:57 → TELE-WESTW 09-30 01:23
PROVIDERS: ADMIT Family Medicine; ATTEND Family Medicine
PROC: 4A023N8 Measurement of Cardiac Sampling and Pressure, Bilateral, Percutaneous Approach (ICD-10-PCS; principal; 2024-09-29)
PROC: B2111ZZ Fluoroscopy of Multiple Coronary Arteries using Low Osmolar Contrast (ICD-10-PCS; 2024-09-29)
PROC: B2161ZZ Fluoroscopy of Right and Left Heart using Low Osmolar Contrast (ICD-10-PCS; 2024-09-29)
DX: I13.0 Hypertensive heart and chronic kidney disease with heart failure and stage 1 through stage 4 chronic kidney disease, or unspecified chronic kidney disease (principal); I50.33 Acute on chronic diastolic (congestive) heart failure; J96.21 Acute and chronic respiratory failure with hypoxia; J44.1 Chronic obstructive pulmonary disease with (acute) exacerbation; N17.9 Acute kidney failure, unspecified; D68.9 Coagulation defect, unspecified; L03.116 Cellulitis of left lower limb; L03.115 Cellulitis of right lower limb; N30.00 Acute cystitis without hematuria; Z68.41 Body mass index [BMI] 40.0-44.9, adult; E66.01 Morbid (severe) obesity due to excess calories; E87.6 Hypokalemia; E83.42 Hypomagnesemia; I48.0 Paroxysmal atrial fibrillation; M16.11 Unilateral primary osteoarthritis, right hip; I07.1 Rheumatic tricuspid insufficiency; L30.9 Dermatitis, unspecified; I25.10 Atherosclerotic heart disease of native coronary artery without angina pectoris; G89.29 Other chronic pain; N18.9 Chronic kidney disease, unspecified; J45.909 Unspecified asthma, uncomplicated; Z79.899 Other long term (current) drug therapy; Z99.81 Dependence on supplemental oxygen; Z91.048 Other nonmedicinal substance allergy status; Z90.710 Acquired absence of both cervix and uterus; Z87.891 Personal history of nicotine dependence; Z79.01 Long term (current) use of anticoagulants; Z80.0 Family history of malignant neoplasm of digestive organs; Z83.3 Family history of diabetes mellitus
CPT/HCPCS: 36415; 71045; 80048; 80053; 81001; 83880; 84443; 84484; 85025; 85610; 85730; 93005; 93306; 93460; 93566; 93970; 94640; 96374; 99152; G0378; J2250; J2405; J3490; Q9967

== ENCOUNTER 2024-10-20 19:36 | Inpatient (IN) | payer OTHER, MEDICARE ==
[~2024-10-20] VITALS: Ht 152.4 cm; Wt 78.5 kg
[~2024-10-20 19:36] MED LIST changes: +HYDR-4902 PO
--- NOTE | 2024-10-20 19:53 | ED.PDOC ---
General HPI Comments This is a 79 year old female BIBA presenting to the ED with chief complaint of urinary concerns. EMS reports that the patient's daughter had called 911 due to the patient having dark colored urine and being worried for a UTI. Patient relays that she has no complaints except for the dark urine. EMS states that the patient is a hospice patient. Patient denies any N/V/D, abdominal pain, dysuria, or hematuria. Patient was mildly hypotensive on arrival. Chief Complaint: Urinary Time Seen by MD: 19:51 Primary Care Provider: RICCO Reviewed notes: Nurses Notes, Speech Correction Assistant Notes, Medications, Allergies Allergies: Coded Allergies: Diphenhydramine (Verified Allergy, Unknown, 09/21/22) Uncoded Allergies: TAPE (Allergy, Unknown, 09/21/22) Home Meds Active Scripts Hydrocodone-Acetaminophen (Hydrocodone Bitartrate/AC 5-325 mg) 1 Tab Tab, 1 TAB PO QID PRN, #30 TAB Prov:NICOL ROMAN MD 10/02/24 Sulfamethoxazole W/Trimethopri (Bactrim Ds Tablet) 1 Tab Tb, 1 TAB PO BID for 10 Days, #20 TAB Prov:CESAR HAYES RESIDENT 07/15/24 Doxycycline Hyclate (Doxycycline Hyclate) 50 Mg Cap, 100 MG PO BID for 10 Days, #20 CAP Prov:CESAR HAYES RESIDENT 07/15/24 Naloxone HCl (Narcan) 4 Mg/0.1 Ml Spr, 4 MG NA PRN PRN for 1 Day, #1 SPRAY 1 Refill Prov:DEONDRE GLEZ MD 05/17/24 Oxycodone Hcl (OxyCONTIN ER Tablet) 20 Mg Tb, 1 TAB PO BID for 7 Days, #14 TAB Prov:DEONDRE GLEZ MD 05/17/24 Albuterol Sulfate (Albuterol Sulfate Hfa) 108 Mcg/Act Aer, 108 MCG IN BID for 30 Days, #1 AER 0 Refills Prov:CHEN MANCERA 05/16/24 Umeclidinium Egan (Incruse Ellipta) 62.5 Mcg/Inh Inh, 62.5 MCG IN DAILY for 30 Days, #1 INHALER 0 Refills Prov:CHEN MANCERA RESIDENT 05/16/24 Empagliflozin (Jardiance) 10 Mg Tab, 10 MG PO DAILY for 30 Days, #30 TAB 1 [facility]/16/24 Apixaban Base (ELIQUIS) 5 Mg Tab, 1 TAB PO BID for 30 Days, #60 TAB Prov:[facility] 05/16/24 Lisinopril (Lisinopril) 20 Mg Tab, 1 TAB PO DAILY for 30 Days, #30 TAB 5 Refills Prov:[facility] 05/16/24 Calcium Carbonate (Antacid) (Antacid) 750 Mg Chw, 750 MG PO DAILYPRN PRN for 30 Days, #30 TAB.CHEW Prov:[facility] 05/16/24 Aspirin (Aspir-Low) 81 Mg Tab, 81 MG PO DAILY for 30 Days, #30 MG Prov:[facility] 05/16/24 Ondansetron HCl (Ondansetron) 4 Mg Tab, 4 MG PO PRN PRN for NAUSEA / VOMITING for 30 Days, #30 TAB Prov:[facility] 05/16/24 Atorvastatin Calcium (ATORVASTATIN CALCIUM) 40 Mg Tab, 1 TAB PO DAILY for 30 Days, #30 TAB Prov:[facility] 05/16/24 Amlodipine Besylate (Amlodipine Besylate) 5 Mg Tab, 1 TAB PO DAILY for 30 Days, #30 TAB Prov:[facility] 05/16/24 Metoprolol Succinate (Metoprolol Succinate Er) 25 Mg Tab, 1 TAB PO DAILY for 30 Days, #30 TAB Prov:[facility] 05/16/24 Reported Medications Mometasone Furoate-Formoterol (Dulera) 1 Aer Aer, 2 PUFF INH BID 07/09/24 Allopurinol (Allopurinol) 300 Mg Tab, 1 TAB PO DAILY 07/09/24 Furosemide (Furosemide) 20 Mg Tab, 1 TAB PO BID 07/09/24 Mometasone Furoate-Formoterol (Dulera) 1 Aer Aer, INH UD for 30 Days, #13 02/02/24 Potassium Chloride (Potassium Chloride ER) 10 Meq Tab, 1 TAB PO DAILY for 30 Da ys, #30 02/02/24 Senna (Sennosides) 8.6 Mg Tab, 8.6 MG PO, TAB 02/02/24 Cholecalciferol (VITAMIN D3) 2,000 Unit Tab, 1 TAB PO DAILY for 30 Days 02/02/24 Information Source: Patient, Emergency Med Personnel Mode of Arrival: EMS Severity: Moderate Timing: Hours Duration: Since onset Prehospital treatment: None Symptoms: Other (Dark colored urine) History of: None Location: None Past Medical History PAST MEDICAL HISTORY: AFIB, Asthma, Cancer, CHF, CKF, Dementia, HTN Past Medical History (Other): Patient states a history of kidney concerns, but has not had any treatment or management in years Surgical History: Appendectomy, Cholecystectomy, Hysterectomy, Tonsillectomy SPEEDBOAT DRIVER History: Denies all SPEEDBOAT DRIVER Hx Family History Family History: No family hx of Cancer, No family hx of DM, No family hx of HTN, No family hx ofKidney waqas, No family hx of Liver waqas, No family hx of Lung waqas, No family hx of Stroke, Family hx of heart waqas Social History Smoker: Quit Greater Than 1 Year Alcohol: Denies ETOH Use Drugs: Denies Drug Use Lives In: Home Constitutional: denies: chills, diaphoresis, fatigue, fever, malaise, sweats, weakness, others EENTM: denies: blurred vision, double vision, ear bleeding, ear discharge, ear drainage, ear pain, ear ringing, eye pain, eye redness, hearing loss, mouth pain, mouth swelling, nasal discharge, nose bleeding, nose congestion, nose pain, photophobia, tearing, throat pain, throat swelling, voice changes, others Respiratory: denies: cough, hemoptysis, orthopnea, SOB at rest, shortness of breath, SOB with excertion, stridor, wheezing, others Cardiovascular: denies: chest pain, dizzy spells, diaphoresis, Dyspnea on exertion, edema, irregular heart beat, left arm pain, lightheadedness, palpitations, PND, syncope, others Gastrointestinal: denies: abdomen distended, abdominal pain, blood streaked bowels, constipated, diarrhea, dysphagia, difficulty swallowing, hematemesis, melena, nausea, poor appetite, poor fluid intake, rectal bleeding, rectal pain, vomiting, others Genitourinary: reports: dysuria, hematuria, others (Dark colored urine); denies: abnormal vagina bleeding, burning, dyspareunia, flank pain, frequency, incontinence, pain, , vagina discharge, urgency Neurological: denies: dizziness, fainting, headache, left sided numbness, left sided weakness, numbness, paresthesia, pre-existing deficit, right sided numbness, right sided weakness, seizure, speech problems, tingling, tremors, weakness, others Musculoskeletal: denies: back pain, gout, joint pain, joint swelling, muscle pain, muscle stiffness, neck pain, others Integumetry: denies: bruises, change in color, change in hair/nails, dryness, laceration, lesions, lumps, rash, wounds, others Allergic/Immunocompromised: denies: Difficulty Healing, Frequent Infections, Hives, Itching, others Hematologic/Lymphatic: denies: anemia, blood clots, easy bleeding, easy bruising, swollen glands, others Endocrine: denies: excessive hunger, excessive sweating, excessive thirst, excessive urination, flushing, intolerance to cold, intolerance to heat, unexplained weight gain, unexplained weight loss, others Psychiatric: denies: anxiety, bipolar disorder, depression, hopeless, panic disorder, schizophrenia, sleepless, suicidal, others All Other Systems: Reviewed and Negative Physical Exam General Appearance: Moderate Distress (Patient is in moderate distress due to anxiety related to her condition as well as being in poor overall health.), Obese HEENT: Normal ENT Inspection, Pharynx Normal, TMs Normal Neck: Full Range of Motion, Non-Tender, Normal, Normal Inspection Respiratory: Chest Non-Tender, Lungs Clear, No Accessory Muscle Use, No Res piratory Distress, Normal Breath Sounds Cardiovascular: No Edema, No JVD, No Murmur, No Gallop, Normal Peripheral Pulses, Regular Rate/Rhythm Breast Exam: Deferred Gastrointestinal: No Organomegaly, Non Tender, No Pulsatile Mass, Normal Bowel Sounds, Soft Genitalia: Deferred Pelvic: Deferred Rectal: Deferred Extremities: Decreased range of motion, Normal capillary refill Neurologic: Alert, Normal Affect, Normal Mood Cerebellar Function: NOT DONE Reflexes: NOT DONE Skin: Dry, Normal Color, Warm Lymphatic: No Adenopathy Was a procedure done? Was a procedure done?: No Differential Diagnosis Kidney stone (Female): Other (End-stage renal disease, pyelonephritis, UTI, sepsis, electrolyte abnormality, congestive heart failure), N/A X-Ray, Labs, Meds, VS Vital Signs Date Time Temp Pulse Resp B/P (MAP) Pulse Ox O2 Delivery O2 Flow Rate FiO2 10/20/24 22:25 69 12 96 Nasal Cannula* 2 28 10/20/24 22:09 64 13 85/58 (67) 96 10/20/24 21:18 13 96 53/ 87 10/20/24 19:55 97.3 82 16 102/59 (73) 98 97.3 Lab Test 10/20/24 21:00 10/20/24 20:08 Range/Units Troponin I High Sensitivity 9 10 </=34 ng/L White Blood Count 5.6 4.4-10.8 10^3/uL Red Blood Count 4.67 4.0-5.20 10^6/uL Hemoglobin 13.2 12.2-16.2 g/dL Hematocrit 41.2 36.0-46.0 % Mean Corpuscular Volume 88.3 80.0-100.0 fL Mean Corpuscular Hemoglobin 28.4 28.0-32.0 pg Mean Corpuscular Hemoglobin Concent 32.1 32.0-36.0 g/dL Red Cell Distribution Width 19.5 H 11.8-14.3 % Platelet Count 261 140-450 10^3/uL Mean Platelet Volume 8.8 6.9-10.8 fL Neutrophils (%) (Auto) 77.8 37.0-80.0 % Lymphocytes (%) (Auto) 12.8 10.0-50.0 % Monocytes (%) (Auto) 6.7 0.0-12.0 % Eosinophils (%) (Auto) 2.0 0.0-7.0 % Basophils (%) (Auto) 0.7 0.0-2.0 % Neutrophils # (Auto) 4.4 1.6-8.6 10 ^3/uL Lymphocytes # (Auto) 0.7 0.4-5.4 10 ^3/uL Monocytes # (Auto) 0.4 0-1.3 10 ^3/uL Eosinophils # (Auto) 0.1 0-0.8 10 ^3/uL Basophils # (Auto) 0 0-0.2 10 ^3/uL Nucleated Red Blood Cells 0.1 % Sodium Level 134 L 136-145 mmol/L Potassium Level 6.5 *H 3.5-5.1 mmol/L Chloride Level 101 98-107 mmol/L Carbon Dioxide Level 21 20-31 mmol/L Anion Gap 12 5-15 Blood Urea Nitrogen 115 *H 9-23 mg/dL Creatinine 3.96 H 0.550-1.02 mg/dL Glomerular Filtration Rate Calc 11 >90 mL/min BUN/Creatinine Ratio 29.0 H 10.0-20.0 Serum Glucose 136 H 74-106 mg/dL Lactic Acid Level 1.6 0.4-2.0 mmol/L Calcium Level 9.4 8.7-10.4 mg/dL Total Bilirubin 0.7 0.2-1.0 mg/dL Aspartate Amino Transferase (AST) 26 13-40 U/L Alanine Aminotransferase (ALT) 13 7-40 U/L Alkaline Phosphatase 123 H 46-116 U/L B-Type Natriuretic Peptide 755.19 0-100 pg/mL Total Protein 7.1 5.7-8.2 g/dL Albumin 4.4 3.2-4.8 g/dL Lipase 70 H 12-53 U/L Current Medications Medications (Trade) Dose Ordered Sig/Leonard Route Start Time Stop Time Status Last Admin Zirconium Oxide (Lokelma) 10 gm ONCE ONCE PO 10/20/24 21:00 10/20/24 21:01 DC 10/20/24 21:23 Calcium Gluconate/ Sodium Chloride 50 ml @ 100 mls/hr ONCE ONCE IV 10/20/24 21:00 10/20/24 21:29 DC 10/20/24 21:00 Sodium Chloride 1,000 ml @ 200 mls/hr Q5H ONCE IV 10/20/24 22:30 10/21/24 03:29 10/20/24 22:47 X-Ray, Labs, Meds, VS Comment All studies performed the ED were evaluated by me personally. Urine was pending at time of this note. Serum laboratories revealed a hypokalemic state, what appears to be confirmation of end-stage renal disease, acute CHF exacerbation as well as pancreatitis due to an elevated lipase. Patient will be admitted for a multitude of concerns including renal and cardiac related issues. Patient's blood pressure slowly dipped while in the facility and fluids happens running to help rectify pressure concerns. Time of 1ST Reevaluation: 22:54 Reevaluation 1ST: Improved Consultation: PCP Patient Education/Counseling: Diagnosis, Treatment Family Education/Counseling: Diagnosis, Treatment, No Family Present SEPSIS Sepsis Screen Recent Procedure: No On Antibiotic Therapy: No Respiratory Rate >20: No Heart Rate >90: No Temp<36 C (96.8 F) or >38.3 C: No SBP <90 or MAP <65 mmHG: No New Acute Mental Status Change: No Is the patient on CPAP, BIPAP,: No IV fluid challenge completed?: No Physician Orders Sodium Chloride 0.9% (10/20/24 20:00) Heplock Iv (10/20/24 ) Urinalysis (10/20/24 19:54) Straightcath If Unable To Void (10/20/24 19:54) Electrocardigram (10/20/24 19:54) Continuous Ekg Monitoring 08,12,16,20,00,04 (10/20/24 19:54) Sodium Chloride 0.9% (10/20/24 22:30) Vital Signs Date Time Temp Pulse Resp B/P (MAP) Pulse Ox O2 Delivery O2 Flow Rate FiO2 10/20/24 22:25 69 12 96 Nasal Cannula* 2 28 10/20/24 22:09 64 13 85/58 (67) 96 10/20/24 21:18 13 96 53/ 87 10/20/24 19:55 97.3 82 16 102/59 (73) 98 97.3 Laboratory Tests Test 10/20/24 20:08 Lactic Acid Level 1.6 mmol/L (0.4-2.0) White Blood Count 5.6 10^3/uL (4.4-10.8) Medications Medications Dose Ordered Sig/Leonard Route Start Time Stop Time Status Last Admin Dose Admin Calcium Gluconate/ Sodium Chloride 50 ml @ 100 mls/hr ONCE ONCE IV 10/20/24 21:00 10/20/24 21:29 DC 10/20/24 21:00 Sodium Chloride 1,000 ml @ 200 mls/hr Q5H ONCE IV 10/20/24 22:30 10/21/24 03:29 10/20/24 22:47 Zirconium Oxide 10 gm ONCE ONCE PO 10/20/24 21:00 10/20/24 21:01 DC 10/20/24 21:23 Departure 1 Departure Time of Disposition: 22:56 Impression: Primary Impression: End stage renal disease Additional Impressions: Acute exacerbation of CHF (congestive heart failure) Hyperkalemia Pancreatitis Hypotension Disposition: 09 ADMITTED INPATIENT Condition: Fair Discharged With: Self, Relative Critical Care Note Critical Care Time?: No Stability Stability form required: No Heart Score Heart Score: Heart Score Response (Comments) Value History Slightly Suspicious 0 EKG Repolarization Disturb 1 Age >65 2 Risk Factors >3 or Hx ASHD 2 Troponin Normal limit 0 Total 5 I personally scribed for GRACIELA TUCKER PAC ([email or web address]) on 10/20/24 at 19:53. Electronically submitted by Herminio Wells ([email or web address]). GRACIELA TUCKER PAC Oct 20, 2024 19:53
[2024-10-20] MEDS: SODIUM CHLORIDE 0.9% 1,000 ML IV ONE ×2 (20:18→22:47)
[2024-10-20 20:20] LABS: Hematocrit 41.2 % (36.0-46.0); Hemoglobin 13.2 g/dL (12.2-16.2); Mean Corpuscular Hemoglobin 28.4 pg (28.0-32.0); Mean Corpuscular Volume 88.3 fL (80.0-100.0); Nucleated Red Blood Cells % 0.1 %
[2024-10-20 20:53] LABS: Alanine Aminotransferase 13 U/L (7-40); Albumin 4.4 g/dL (3.2-4.8); Anion Gap 12 (5-15); BUN/Creatinine Ratio 29.0 (10.0-20.0); Bilirubin, Total 0.7 mg/dL (0.2-1.0); Calcium 9.4 mg/dL (8.7-10.4); Carbon Dioxide 21 mmol/L (20-31); Chloride 101 mmol/L (98-107); Total Protein 7.1 g/dL (5.7-8.2)
[2024-10-20 20:56] LABS: Alkaline Phosphatase 123 U/L (46-116); Glucose 136 mg/dL (74-106); Lipase 70 U/L (12-53); Sodium 134 mmol/L (136-145)
[2024-10-20 20:59] LABS: Blood Urea Nitrogen 115 mg/dL (9-23); Potassium 6.5 mmol/L (3.5-5.1)
[2024-10-20] MEDS: CALCIUM GLUC 1,000mg/50ml-NS 50 ML IV ONE (21:00)
[2024-10-20] MEDS: SODIUM ZIRCONIUM CYCL 10 GM PAK PO ONE (21:23)
[2024-10-20 22:25] VITALS: PULSE 69; RESP 12; O2SAT 96
[2024-10-20] MEDS: HYDROmorphone HCL 2 MG/ML VL/or syr IV ONE (22:58)
[2024-10-20] MEDS: FUROSEMIDE 40 MG/4 ML VIAL IV ONE (22:58)
--- NOTE | 2024-10-20 23:29 | DVHHP2 ---
History of Present Illness Reason for Visit: End-stage renal disease History of Present Illness The patient is a 79-year-old female with past medical history of AFib, asthma, cancer, CHF, chronic kidney failure, dementia, and hypertension who presented to [facility] ED with complaint of urinary problem. Daughter reports patient has been having dark-colored urine and being worried for a UTI, so EMS were called. Patient states a history of kidney failure, but has not had any treatment or management in years. Patient was seen and evaluated in the ED, laboratory data shows WBC 5.6, platelets 261, sodium 134, potassium 6.5, BUN 115, creatinine 3.96, glucose 136, calcium 9.4, BNP 755.19, troponin 10, lipase 70, blood pressure 85/41 trending up to 90/70, heart rate 70, temperature 97.6 F, O2 saturation 96% on oxygen. Please see medication orders section in the computer. On my assessment, patient denied chest pain, no headache, no dizziness, no diaphoresis, currently on oxygen, no nausea, no vomiting, no fever, no chills. Patient was admitted for further evaluation and medical management. Past Medical History AFIB, Asthma, Cancer, CHF, CKF, Dementia, HTN Past Surgical History Appendectomy, Cholecystectomy, Hysterectomy, Tonsillectomy Family History Reviewed, noncontributory to the management of this case. Past Social History The patient lives at home, denies smoking, alcohol or illicit drugs abuse. Review of Systems Constitutional: Yes: Weakness; No: Fever, Chills, Sweats, Malaise, Other Eyes: No: Pain, Vision change, Conjunctivae inflammation, Eyelid inflammation, Other, Redness ENT: No: Ear pain, Ear discharge, Nose pain, Nose discharge, Nose congestion, Mouth pain, Mouth swelling, Throat pain, Throat swelling, Other Respiratory: No: Cough, Dry, Shortness of breath, SOB with excertion, Wheezing, Hemoptysis, Pleuritic Pain, Sputum, Wheezing, Other Cardiovascular: No: Chest Pain, Palpitations, Orthopnea, Paroxysmal Noc. Dyspnea, Edema, Lt Headedness, Other Gastrointestinal: No: Nausea, Vomiting, Abdominal Pain, Diarrhea, Constipation, Melena, Hematochezia, Other Genitourinary: No Dysuria, No Frequency, No Incontinence; Hematuria; No Retention; Other (Dark colored urine, Hutchinson catheter in place.) Musculoskeletal: No: other, neck pain, shoulder pain, arm pain, back pain, hand pain, leg pain, foot pain Skin: No: Rash, Lesions, Jaundice, Bruising, Other Neurological: No: Weakness, Numbness, Incoordination, Change in speech, Confusion, Seizures, Other Allergies: Coded Allergies: Diphenhydramine (Verified Allergy, Unknown, 09/21/22) Uncoded Allergies: TAPE (Allergy, Unknown, 09/21/22) Exam Vital Signs Vital Signs Date Time Temp Pulse Resp B/P (MAP) Pulse Ox O2 Delivery O2 Flow Rate FiO2 10/20/24 22:58 70 14 92/48 10/20/24 22:25 96 Nasal Cannula* 2 28 10/20/24 19:55 97.3 97.3 General Appearance: Alert, Cooperative, No acute distress, Other (Oriented x2) HEENT: Atraumatic, PERRLA, EOMI, Mucous membr. moist/pink Respiratory: Normal air movement Cardiovascular: Regular rate, Normal S1, Normal S2, No murmurs Abdominal: Normal bowel sounds, Soft, No tenderness, No hepatospenomegaly, No masses Extremities: No clubbing, No cyanosis, No edema, Normal pulses, No tenderness/swelling Skin: No rashes, No significant lesion Neuro: Normal speech, Normal tone, Sensation intact, Cranial nerves 3-12 NL, Reflexes 2+, Other (Generalized weakness) Psych/Mental Status: Mental status NL, Mood NL Labs/Xrays Labs Test 10/20/24 21:00 10/20/24 20:08 Range/Units Troponin I High Sensitivity 9 </=34 ng/L White Blood Count 5.6 4.4-10.8 10^3/uL Red Blood Count 4.67 4.0-5.20 10^6/uL Hemoglobin 13.2 12.2-16.2 g/dL Hematocrit 41.2 36.0-46.0 % Mean Corpuscular Volume 88.3 80.0-100.0 fL Mean Corpuscular Hemoglobin 28.4 28.0-32.0 pg Mean Corpuscular Hemoglobin Concent 32.1 32.0-36.0 g/dL Red Cell Distribution Width 19.5 H 11.8-14.3 % Platelet Count 261 140-450 10^3/uL Mean Platelet Volume 8.8 6.9-10.8 fL Neutrophils (%) (Auto) 77.8 37.0-80.0 % Lymphocytes (%) (Auto) 12.8 10.0-50.0 % Monocytes (%) (Auto) 6.7 0.0-12.0 % Eosinophils (%) (Auto) 2.0 0.0-7.0 % Basophils (%) (Auto) 0.7 0.0-2.0 % Neutrophils # (Auto) 4.4 1.6-8.6 10 ^3/uL Lymphocytes # (Auto) 0.7 0.4-5.4 10 ^3/uL Monocytes # (Auto) 0.4 0-1.3 10 ^3/uL Eosinophils # (Auto) 0.1 0-0.8 10 ^3/uL Basophils # (Auto) 0 0-0.2 10 ^3/uL Nucleated Red Blood Cells 0.1 % Sodium Level 134 L 136-145 mmol/L Potassium Level 6.5 *H 3.5-5.1 mmol/L Chloride Level 101 98-107 mmol/L Carbon Dioxide Level 21 20-31 mmol/L Anion Gap 12 5-15 Blood Urea Nitrogen 115 *H 9-23 mg/dL Creatinine 3.96 H 0.550-1.02 mg/dL Glomerular Filtration Rate Calc 11 >90 mL/min BUN/Creatinine Ratio 29.0 H 10.0-20.0 Serum Glucose 136 H 74-106 mg/dL Lactic Acid Level 1.6 0.4-2.0 mmol/L Calcium Level 9.4 8.7-10.4 mg/dL Total Bilirubin 0.7 0.2-1.0 mg/dL Aspartate Amino Transferase (AST) 26 13-40 U/L Alanine Aminotransferase (ALT) 13 7-40 U/L Alkaline Phosphatase 123 H 46-116 U/L B-Type Natriuretic Peptide 755.19 0-100 pg/mL Total Protein 7.1 5.7-8.2 g/dL Albumin 4.4 3.2-4.8 g/dL Lipase 70 H 12-53 U/L Assessment/Plan Assessment/Plan End stage renal disease Hyperkalemia Pancreatitis Hypotension, unspecified Generalized weakness Acute exacerbation of CHF (congestive heart failure) Plan 1. Admit to telemetry unit 2. Breathing treatment 3. Pain control management 4. Management of fluids and electrolytes 5. Consultation for Nephrology 6. Diagnostic tests chest x-ray 7. DVT prophylaxis-on SCDs 8. Repeat labs CBC, CMP in a.m. 9. Continue with current medical management 10. Treatment plan discussed with patient and RN. Patient verbalized understanding. Plan discussed with: Patient, Other (RN) Problem List: (1) End stage renal disease (2) Hypotension, unspecified (3) Pancreatitis (4) Hyperkalemia (5) Generalized weakness (6) Acute exacerbation of CHF (congestive heart failure) Date of Service: Oct 20, 2024 Billing Provider: MEREDITH CRENSHAW DNP Common Visit Codes: [id number] INP/OBS CARE (HIGH) MEREDITH CRENSHAW DNP Oct 20, 2024 23:29
[2024-10-20] MEDS ORDERED: NITROGLYCERIN 0.4 MG SL TAB SL PRN (23:30)
[2024-10-20] MEDS ORDERED: MORPHINE SULFATE INJ 2 MG/ml SYRG IV PRN (23:30)
[2024-10-20] MEDS ORDERED: HYDROcodone-ACET 5/325MG TAB PO PRN (23:30)
[2024-10-20 23:57] VITALS: BP 85/41; PULSE 70; RESP 19; O2SAT 96
[2024-10-21] VITALS (75 sets, daily range): BP systolic 73–157; BP diastolic 30–82; PULSE 56–106; RESP 9–22; TEMP 96–98.1; O2SAT 92–99
[2024-10-21] MEDS: InsuLIN REG 1unit/0.01ml Soln (100units/ml) IV ONE ×2 (00:25→08:44)
[2024-10-21 02:47] LABS: Urine Budding Yeast FEW /hpf (None Seen); Urine Protein, UAD Negative (Negative)
[2024-10-21] MEDS: MIDODRINE HCL 10 MG TAB PO ONE (04:08)
[2024-10-21 04:35] LABS: Alanine Aminotransferase 11 U/L (7-40); Albumin 3.7 g/dL (3.2-4.8); Alkaline Phosphatase 106 U/L (46-116); Anion Gap 12 (5-15); BUN/Creatinine Ratio 28.5 (10.0-20.0); Calcium 9.3 mg/dL (8.7-10.4); Chloride 103 mmol/L (98-107); Glucose 81 mg/dL (74-106); Total Protein 6.7 g/dL (5.7-8.2)
[2024-10-21 04:36] LABS: Bilirubin, Total 0.7 mg/dL (0.2-1.0); Sodium 135 mmol/L (136-145)
[2024-10-21 04:37] LABS: Carbon Dioxide 20 mmol/L (20-31); Potassium 6.0 mmol/L (3.5-5.1)
[2024-10-21 04:38] LABS: Blood Urea Nitrogen 103 mg/dL (9-23)
[2024-10-21] MEDS: NOREPINEPHRINE 8 MG/250ML KIT 250 ML IV SCH (04:48)
[2024-10-21 04:50] LABS: Hematocrit 37.7 % (36.0-46.0); Hemoglobin 12.4 g/dL (12.2-16.2); Mean Corpuscular Hemoglobin 29.2 pg (28.0-32.0); Mean Corpuscular Volume 88.5 fL (80.0-100.0); Nucleated Red Blood Cells % 0.0 %
[2024-10-21] MEDS: SODIUM CHLOR 0.9% PF (SALINE LOCK) 10ML VIAL/SYR IV SCH ×2 (06:00→21:58)
[2024-10-21] MEDS: ALBUTEROL SULF 2.5 MG/0.5ML(0.5%) NEB SOLN NEB ONE (06:31)
[2024-10-21] MEDS: SODIUM ZIRCONIUM CYCL 10 GM PAK PO ONE ×2 (06:48→13:04)
[2024-10-21] MEDS: MIDODRINE HCL 10 MG TAB PO SCH (06:48)
[2024-10-21] MEDS: APIXABAN 5 MG TAB PO SCH (07:31)
[2024-10-21] MEDS: FAMOTIDINE (10MG/ML) 2ML VL IV SCH (07:31)
[2024-10-21] MEDS: B-COMPLEX W/ C & FOLIC ACID(NEPHROVITE TAB) PO SCH (07:31)
[2024-10-21] MEDS: CALCIUM GLUC 1,000mg/50ml-NS 50 ML IV ONE ×2 (08:15→08:17)
[2024-10-21] MEDS: DEXTROSE (50%) 50ML SYRG IV ONE (08:24)
[2024-10-21] MEDS: FUROSEMIDE 40 MG/4 ML VIAL IV ONE (08:25)
[2024-10-21] MEDS: SODIUM CHLORIDE 0.9% 1,000 ML IV ONE ×2 (09:15→13:00)
--- NOTE | 2024-10-21 10:38 | DVHINCON2 ---
Date of service: Oct 21, 2024 Referring Physician John Paul Joseph NP Reason for Consultation JULIANNA History of Present Illness Mrs. Sevilla is a 79-year-old female with medical history notable for chronic pain, obesity, diabetes who presented for further evaluation and management of reported "urinary problem". She was found to have a markedly elevated BUN and creatinine and also to be hyperkalemic and that is the reason for this consultation. She was seen in the emergency department patient's is at the bedside. Mrs. Sevilla has been treated medically for her hyperkalemia, she has been treated with IV fluids, she has required vasopressor support for hypotension. Review of electronic health records reveal serum creatinine that was normal earlier this year. Patient denies use of NSAIDs recently. Past Medical History Hypertension CKD stage 2 Hyperlipidemia, chronic heart failure, Chronic pain syndrome Allergies: Coded Allergies: Diphenhydramine (Verified Allergy, Unknown, 09/21/22) Uncoded Allergies: TAPE (Allergy, Unknown, 09/21/22) Home Meds Active Scripts Hydrocodone-Acetaminophen (Hydrocodone Bitartrate/AC 5-325 mg) 1 Tab Tab, 1 TAB PO QID PRN, #30 TAB Prov:NICOL ROMAN MD 10/02/24 Sulfamethoxazole W/Trimethopri (Bactrim Ds Tablet) 1 Tab Tb, 1 TAB PO BID for 10 Days, #20 TAB Prov:CESAR HAYES RESIDENT 07/15/24 Doxycycline Hyclate (Doxycycline Hyclate) 50 Mg Cap, 100 MG PO BID for 10 Days, #20 CAP Prov:CESAR HAYES RESIDENT 07/15/24 Naloxone HCl (Narcan) 4 Mg/0.1 Ml Spr, 4 MG NA PRN PRN for 1 Day, #1 SPRAY 1 Refill Prov:DEONDRE GLEZ MD 05/17/24 Oxycodone Hcl (OxyCONTIN ER Tablet) 20 Mg Tb, 1 TAB PO BID for 7 Days, #14 TAB Prov:DEONDRE GLEZ MD 05/17/24 Albuterol Sulfate (Albuterol Sulfate Hfa) 108 Mcg/Act Aer, 108 MCG IN BID for 30 Days, #1 AER 0 Refills Prov:CHEN MANCERA RESIDENT 05/16/24 Umeclidinium [place] (Incruse Ellipta) 62.5 Mcg/Inh Inh, 62.5 MCG IN DAILY for 30 Days, #1 INHALER 0 [facility] 05/16/24 Empagliflozin (Jardiance) 10 Mg Tab, 10 MG PO DAILY for 30 Days, #30 TAB 1 [facility] 05/16/24 Apixaban Base (ELIQUIS) 5 Mg Tab, 1 TAB PO BID for 30 Days, #60 TAB [facility] 05/16/24 Lisinopril (Lisinopril) 20 Mg Tab, 1 TAB PO DAILY for 30 Days, #30 TAB 5 [facility] 05/16/24 Calcium Carbonate (Antacid) (Antacid) 750 Mg Chw, 750 MG PO DAILYPRN PRN for 30 Days, #30 TAB.CHEW [facility] 05/16/24 Aspirin (Aspir-Low) 81 Mg Tab, 81 MG PO DAILY for 30 Days, #30 MG [facility] 05/16/24 Ondansetron HCl (Ondansetron) 4 Mg Tab, 4 MG PO PRN PRN for NAUSEA / VOMITING for 30 Days, #30 TAB [facility] 05/16/24 Atorvastatin Calcium (ATORVASTATIN CALCIUM) 40 Mg Tab, 1 TAB PO DAILY for 30 Days, #30 TAB [facility] 05/16/24 Amlodipine Besylate (Amlodipine Besylate) 5 Mg Tab, 1 TAB PO DAILY for 30 Days, #30 TAB [facility] 05/16/24 Metoprolol Succinate (Metoprolol Succinate Er) 25 Mg Tab, 1 TAB PO DAILY for 30 Days, #30 TAB [facility] 05/16/24 Reported Medications Mometasone Furoate-Formoterol (Dulera) 1 Aer Aer, 2 PUFF INH BID 07/09/24 Allopurinol (Allopurinol) 300 Mg Tab, 1 TAB PO DAILY 07/09/24 Furosemide (Furosemide) 20 Mg Tab, 1 TAB PO BID 07/09/24 Mometasone Furoate-Formoterol (Dulera) 1 Aer Aer, INH UD for 30 Days, #13 02/02/24 Potassium Chloride (Potassium Chloride ER) 10 Meq Tab, 1 TAB PO DAILY for 30 Days, #30 02/02/24 Senna (Sennosides) 8.6 Mg Tab, 8.6 MG PO, TAB 02/02/24 Cholecalciferol (VITAMIN D3) 2,000 Unit Tab, 1 TAB PO DAILY for 30 Days 02/02/24 Current Medications Current Medications Medications (Trade) Dose Ordered Sig/Leonard Route PRN Reason Start Time Stop Time Status Last Admin Atorvastatin Calcium (Lipitor) 20 mg HS PO 10/21/24 22:00 Multivit/Ca Carb/ B Cmplx/FA/Prenat (Nephro-Isak Tablet) 1 tab DAILY PO 10/21/24 10:00 10/21/24 07:31 Famotidine (Pepcid Injection) 20 mg DAILY IV 10/21/24 10:00 10/21/24 07:31 Albuterol (Ventolin Medneb) 2.5 mg Q4HPRN PRN NEB SHORTNESS OF BREATH 10/20/24 23:30 Sodium Chloride (Saline Lock Ns) 10 ml Q8HR IV 10/21/24 06:00 10/21/24 06:00 Acetaminophen/ Hydrocodone Bitart ([place] 5/325MG Tab) 1 tab Q4HP PRN PO MODERATE PAIN (4-6 PAIN SCALE) 10/20/24 23:30 Ondansetron HCl (Zofran) 4 mg Q4HP PRN IV NAUSEA / VOMITING 10/20/24 23:30 Docusate Sodium (Colace Capsule) 100 mg BIDPRN PRN PO FOR CONSTIPATION 10/20/24 23:30 Acetaminophen (Tylenol Tablet) 650 mg Q6HP PRN PO PAIN SCALE 1-3 OR TEMP>100.4 10/20/24 23:30 Nitroglycerin (Ntrostat Sublingual) 0.4 mg Q5MINP PRN SL FOR CHEST PAIN 10/20/24 23:30 Morphine Sulfate 2 mg Q30M PRN IV FOR CHEST PAIN 10/20/24 23:30 Apixaban (Eliquis) 5 mg BID PO 10/21/24 10:00 10/21/24 07:31 Midodrine (Proamatine Tablet) 10 mg TID@0600,1200,1800 PO 10/21/24 06:00 10/21/24 06:48 Norepinephrine Bitartrate 250 ml @ 3.75 mls/hr Q24H IV 10/21/24 04:15 10/21/24 04:48 Family History: Colon cancer G8 MOTHER Diabetes mellitus G8 MOTHER Review of Systems Full Review of systems unable to be obtained due to patient's lethargy. H&P Exam Vital Signs/I&O Vital Sign Date Time Temp Pulse Resp B/P (MAP) Pulse Ox O2 Delivery O2 Flow Rate FiO2 10/21/24 10:00 96.5 69 15 97/50 (66) 96 96.5 10/21/24 09:38 Nasal Cannula* 2 28 Intake and Output 10/20/24 10/21/24 19:00 07:00 Intake Total 307.5 ml Output Total 1000 ml Balance -692.5 ml Intake IV Total 307.5 ml Output Urine Total 1000 ml Physical Exam Gen: nad, obese, awake transiently. heent: nc/at, mmm lungs: cta anteriorly cvs: no rub abd: soft, bowel sounds audible ext: + edema, bilateral lower extremities wrapped in gauze. skin: no rash neuro: Lethargic but communicative intermittently Labs/Diagnostic Data Labs/Diagnostic Data Laboratory Tests Test 10/21/24 08:42 10/21/24 03:56 10/21/24 03:47 10/21/24 00:21 Range/Units POC Glucose 232 H 91 104 70-106 mg/dl White Blood Count 8.1 # 4.4-10.8 10^3/uL Red Blood Count 4.26 4.0-5.20 10^6/uL Hemoglobin 12.4 12.2-16.2 g/dL Hematocrit 37.7 36.0-46.0 % Mean Corpuscular Volume 88.5 80.0-100.0 fL Mean Corpuscular Hemoglobin 29.2 28.0-32.0 pg Mean Corpuscular Hemoglobin Concent 32.9 32.0-36.0 g/dL Red Cell Distribution Width 19.4 H 11.8-14.3 % Platelet Count 229 140-450 10^3/uL Mean Platelet Volume 8.7 6.9-10.8 fL Neutrophils (%) (Auto) 83.6 H 37.0-80.0 % Lymphocytes (%) (Auto) 6.6 L 10.0-50.0 % Monocytes (%) (Auto) 7.2 0.0-12.0 % Eosinophils (%) (Auto) 2.0 0.0-7.0 % Basophils (%) (Auto) 0.6 0.0-2.0 % Neutrophils # (Auto) 6.8 1.6-8.6 10 ^3/uL Lymphocytes # (Auto) 0.5 0.4-5.4 10 ^3/uL Monocytes # (Auto) 0.6 0-1.3 10 ^3/uL Eosinophils # (Auto) 0.2 0-0.8 10 ^3/uL Basophils # (Auto) 0 0-0.2 10 ^3/uL Nucleated Red Blood Cells 0.0 % Sodium Level 135 L 136-145 mmol/L Potassium Level 6.1 *H 3.5-5.1 mmol/L Chloride Level 103 98-107 mmol/L Carbon Dioxide Level 20 20-31 mmol/L Anion Gap 12 5-15 Blood Urea Nitrogen 103 #*H 9-23 mg/dL Creatinine 3.61 H 0.550-1.02 mg/dL Glomerular Filtration Rate Calc 12 >90 mL/min BUN/Creatinine Ratio 28.5 H 10.0-20.0 Serum Glucose 81 74-106 mg/dL Calcium Level 9.3 8.7-10.4 mg/dL Total Bilirubin 0.7 0.2-1.0 mg/dL Aspartate Amino Transferase (AST) 22 13-40 U/L Alanine Aminotransferase (ALT) 11 7-40 U/L Alkaline Phosphatase 106 46-116 U/L Total Protein 6.7 5.7-8.2 g/dL Albumin 3.7 3.2-4.8 g/dL Test 10/20/24 23:30 10/20/24 21:00 10/20/24 20:08 Range/Units Urine Color Colorless Yellow Urine Clarity Clear Clear Urine pH 5.0 5.0-9.0 Urine Specific [place] 1.009 1.001-1.035 Urine Protein Negative Negative Urine Ketones Negative Negative Urine Blood 3+ H Negative /uL Urine Nitrite Negative Negative Urine Bilirubin Negative Negative Urine Urobilinogen Normal Negative mg/dL Urine Leukocyte Esterase Trace Negative /uL Urine RBC 91 0 - 4 /hpf Urine Microscopic WBC 16 H 0-5 /HPF Urine Squamous Epithelial Cells None seen <5 /hpf Urine Bacteria Few H None Seen /hpf Urine Yeast (Budding) Few None Seen /hpf Urine Glucose Normal Normal mg/dL Troponin I High Sensitivity 9 10 </=34 ng/L White Blood Count 5.6 4.4-10.8 10^3/uL Red Blood Count 4.67 4.0-5.20 10^6/uL Hemoglobin 13.2 12.2-16.2 g/dL Hematocrit 41.2 36.0-46.0 % Mean Corpuscular Volume 88.3 80.0-100.0 fL Mean Corpuscular Hemoglobin 28.4 28.0-32.0 pg Mean Corpuscular Hemoglobin Concent 32.1 32.0-36.0 g/dL Red Cell Distribution Width 19.5 H 11.8-14.3 % Platelet Count 261 140-450 10^3/uL Mean Platelet Volume 8.8 6.9-10.8 fL Neutrophils (%) (Auto) 77.8 37.0-80.0 % Lymphocytes (%) (Auto) 12.8 10.0-50.0 % Monocytes (%) (Auto) 6.7 0.0-12.0 % Eosinophils (%) (Auto) 2.0 0.0-7.0 % Basophils (%) (Auto) 0.7 0.0-2.0 % Neutrophils # (Auto) 4.4 1.6-8.6 10 ^3/uL Lymphocytes # (Auto) 0.7 0.4-5.4 10 ^3/uL Monocytes # (Auto) 0.4 0-1.3 10 ^3/uL Eosinophils # (Auto) 0.1 0-0.8 10 ^3/uL Basophils # (Auto) 0 0-0.2 10 ^3/uL Nucleated Red Blood Cells 0.1 % Sodium Level 134 L 136-145 mmol/L Potassium Level 6.5 *H 3.5-5.1 mmol/L Chloride Level 101 98-107 mmol/L Carbon Dioxide Level 21 20-31 mmol/L Anion Gap 12 5-15 Blood Urea Nitrogen 115 *H 9-23 mg/dL Creatinine 3.96 H 0.550-1.02 mg/dL Glomerular Filtration Rate Calc 11 >90 mL/min BUN/Creatinine Ratio 29.0 H 10.0-20.0 Serum Glucose 136 H 74-106 mg/dL Lactic Acid Level 1.6 0.4-2.0 mmol/L Calcium Level 9.4 8.7-10.4 mg/dL Total Bilirubin 0.7 0.2-1.0 mg/dL Aspartate Amino Transferase (AST) 26 13-40 U/L Alanine Aminotransferase (ALT) 13 7-40 U/L Alkaline Phosphatase 123 H 46-116 U/L B-Type Natriuretic Peptide 755.19 0-100 pg/mL Total Protein 7.1 5.7-8.2 g/dL Albumin 4.4 3.2-4.8 g/dL Lipase 70 H 12-53 U/L Assessment IMP: 1) Hemodynamically mediated JULIANNA/VMN, prerenal state 2) CKD stage II 3) hyperkalemia possibly in setting of acute kidney injury, concurrent therapy with BEBO inhibition as outpatient with resultant hypo renin, hypoaldo state 4) toxic metabolic encephalopathy 5) history of hypertension REC: - volume expansion - Lokelma - this racebook writer ordered again with IV calcium, insulin dextrose earlier this morning. - repeat basic chemistry panel this evening - anticipate improvement in kidney function with conservative means. - plan of care discussed with patient, patient's at bedside. Thank you for the consultation. Plan discussed with: Patient, Spouse SEAMUS MCDONALD MD Oct 21, 2024 10:38
[2024-10-21 12:18] LABS: Base Excess -8.4 mmol/L (-2.0-3.0)
[2024-10-21] MEDS: PIPERACILLIN-TAZOB 2.25GM 50 ML IV ONE (13:15)
--- NOTE | 2024-10-21 13:30 | DVHPN2 ---
Subjective The patient is seen and examined at bedside. Severe shortness for breath and become more confused. Reviewed: Care Plan, H&P, Labs, Medications, Previous Orders, Radiology Changes from previous H/P or p: No Changes Eyes: No Pain, No Vision change, No Conjunctivae inflammation, No Eyelid inflammation, No Other, No Redness ENT: No Ear pain, No Ear discharge, No Nose pain, No Nose discharge, No Nose congestion, No Mouth pain, No Mouth swelling, No Throat pain, No Throat swelling, No Other Cardiovascular: No Chest Pain, No Palpitations, No Orthopnea, No Paroxysmal Noc. Dyspnea, No Edema, No Lt Headedness, No Other Respiratory: No Cough, No Dry, No Shortness of breath, No SOB with excertion, No Wheezing, No Hemoptysis, No Pleuritic Pain, No Sputum, No Other Gastrointestinal: No Nausea, No Vomiting, No Abdominal Pain, No Diarrhea, No Constipation, No Melena, No Hematochezia, No Other Genitourinary: No Dysuria, No Frequency, No Incontinence; Hematuria; No Retention; Other (Dark colored urine, Hutchinson catheter in place.) Musculoskeletal: No other, No neck pain, No shoulder pain, No arm pain, No back pain, No hand pain, No leg pain, No foot pain Skin: No Rash, No Lesions, No Jaundice, No Bruising, No Other Objective Vitals Vital Signs Date Time Temp Pulse Resp B/P (MAP) Pulse Ox O2 Delivery O2 Flow Rate FiO2 10/21/24 12:00 62 10/21/24 11:56 18 95 Nasal Cannula* 4 36 10/21/24 11:45 94/40 (58) 10/21/24 10:00 96.5 96.5 Intake/Output Intake and Output 10/21/24 07:00 Intake Total 307.5 ml Output Total 1000 ml Balance -692.5 ml Intake IV Total 307.5 ml Output Urine Total 1000 ml General Appearance: Other (Confused and lethargic) HEENT: Atraumatic, PERRLA, EOMI, Mucous membr. moist/pink Neck: Supple Lungs: Clear to auscultation, Normal air movement Cardiovascular: Regular rate, Normal S1, Normal S2, No murmurs, Gallops, Rubs Abdomen: Normal bowel sounds, Soft, No tenderness Neuro: Other (Unable to exam patient not follow command) Psych/Mental Status: Other (Lethargic) Medications Current Medications Medications Dose Ordered Sig/Leonard Route Start Time Stop Time Status Last Admin Dose Admin Atorvastatin Calcium 20 mg HS PO 10/21/24 22:00 Multivit/Ca Carb/ B Cmplx/FA/Prenat 1 tab DAILY PO 10/21/24 10:00 10/21/24 07:31 1 TAB Famotidine 20 mg DAILY IV 10/21/24 10:00 10/21/24 07:31 20 MG Albuterol 2.5 mg Q4HPRN PRN NEB 10/20/24 23:30 Sodium Chloride 10 ml Q8HR IV 10/21/24 06:00 10/21/24 13:04 10 ML Acetaminophen/ Hydrocodone Bitart 1 tab Q4HP PRN PO 10/20/24 23:30 Ondansetron HCl 4 mg Q4HP PRN IV 10/20/24 23:30 Docusate Sodium 100 mg BIDPRN PRN PO 10/20/24 23:30 Acetaminophen 650 mg Q6HP PRN PO 10/20/24 23:30 Nitroglycerin 0.4 mg Q5MINP PRN SL 10/20/24 23:30 Morphine Sulfate 2 mg Q30M PRN IV 10/20/24 23:30 Apixaban 5 mg BID PO 10/21/24 10:00 10/21/24 07:31 5 MG Midodrine 10 mg TID@0600,1200,1800 PO 10/21/24 06:00 10/21/24 06:48 10 MG Norepinephrine Bitartrate 250 ml @ 3.75 mls/hr Q24H IV 10/21/24 04:15 10/21/24 04:48 3.75 MLS/HR Ceftriaxone Sodium 50 ml @ 100 mls/hr DAILY@09 IV 10/22/24 09:00 Piperacillin Sod/ Tazobactam Sod 50 ml @ 12.5 mls/hr Q12HR IV 10/21/24 22:00 UNV Laboratory Results Laboratory Tests 10/21/24 03:47 Chemistry Test 10/20/24 20:08 10/21/24 03:47 10/21/24 12:58 Albumin 4.4 g/dL (3.2-4.8) 3.7 g/dL (3.2-4.8) Pending Calcium Level 9.4 mg/dL (8.7-10.4) 9.3 mg/dL (8.7-10.4) Pending Total Protein 7.1 g/dL (5.7-8.2) 6.7 g/dL (5.7-8.2) Pending Magnesium Level Pending Phosphorus Level Pending Lipid panel Test 10/20/24 20:08 Lipase 70 U/L (12-53) H Cardiac Markers Test 10/20/24 20:08 B-Type Natriuretic Peptide 755.19 pg/mL (0-100) LFT Test 10/20/24 20:08 10/21/24 03:47 10/21/24 12:58 Alanine Aminotransferase (ALT) 13 U/L (7-40) 11 U/L (7-40) Pending Alkaline Phosphatase 123 U/L (46-116) H 106 U/L (46-116) Pending Aspartate Amino Transferase (AST) 26 U/L (13-40) 22 U/L (13-40) Pending Total Bilirubin 0.7 mg/dL (0.2-1.0) 0.7 mg/dL (0.2-1.0) Pending Urinalysis Test 10/20/24 23:30 Urine Color Colorless (Yellow) Urine Clarity Clear (Clear) Urine pH 5.0 (5.0-9.0) Urine Specific [place] 1.009 (1.001-1.035) Urine Protein Negative (Negative) Urine Ketones Negative (Negative) Urine Blood 3+ /uL (Negative) H Urine Nitrite Negative (Negative) Urine Bilirubin Negative (Negative) Urine Urobilinogen Normal mg/dL (Negative) Urine Leukocyte Esterase Trace /uL (Negative) Urine RBC 91 /hpf (0 - 4) Urine Microscopic WBC 16 /HPF (0-5) H Urine Squamous Epithelial Cells None seen /hpf (<5) Urine Bacteria Few /hpf (None Seen) H Urine Yeast (Budding) Few /hpf (None Seen) Urine Glucose Normal mg/dL (Normal) Blood Gas Results Test 10/21/24 12:12 Arterial Blood pH 7.315 (7.350-7.450) FiO2 % 36.0 Labs and/or images reviewed: Labs reviewed by me Assessment/Plan Assessment/Plan Sepsis Hypotension Acute respiratory failure End stage renal disease Hyperkalemia Pancreatitis Generalized weakness Acute exacerbation of CHF (congestive heart failure) Continuing current management. Continuing with vasopressor, Levophed. Appreciate Nephrology input. Patient received leukemia. I will consulted pulmonology We will get a stat chest x-ray and also stat ABG Continuing to keep NPO We will monitor lipase Hemodialysis per schedule We will start the patient on IV antibiotic with cefepime. We will follow up with culture. Critical care spent for this case is 37 minute excluding procedure This medical document was created using an electronic medical record system with M*M L2 direct computerized dictation system. Although this document has been carefully reviewed, there may still be some phonetic and typographical errors. These areas are purely typographical due to imperfections of the software programs, and do not reflect any compromise in the patient's medical care. Plan discussed with: Patient, Spouse, Other (RN) My Orders Orders - DEN HUNTER MD Procedure Category Date Status Time Electrocardigram EKG 10/21/24 Logged 11:44 Comprehensive LAB 10/21/24 In Process Metabolic Panel 11:45 Magnesium LAB 10/21/24 In Process 11:45 Phosphorus LAB 10/21/24 In Process 11:45 Abg W/ Co-Ox RT 10/21/24 Logged 11:46 Ceftriaxone 1gm/50ml PHA 10/22/ In Process D5w (Rocephin) 09:00 Ceftriaxone 1gm/50ml PHA 25 In Process D5w (Rocephin) 13:15 Piperacillin-Tazob PHA 10/21/24 Logged 2.25gm (Zosyn 2.25gm) 22:00 Piperacillin-Tazob PHA 25 In Process 2.25gm (Zosyn 2.25gm) 13:15 Date of Service: Oct 21, 2024 Billing Provider: DEN HUNTER MD Common Visit Codes: [id number] CARE 30-74 MIN DEN HUNTER MD Oct 21, 2024 13:30
[2024-10-21] MEDS: cefTRIAXone 1GM/50ML D5W 50 ML IV ONE (13:42)
[2024-10-21 13:53] LABS: Alanine Aminotransferase 12 U/L (7-40); Albumin 4.0 g/dL (3.2-4.8); Anion Gap 13 (5-15); Calcium 10.1 mg/dL (8.7-10.4); Chloride 105 mmol/L (98-107); Sodium 138 mmol/L (136-145)
[2024-10-21 13:54] LABS: BUN/Creatinine Ratio 32.3 (10.0-20.0)
[2024-10-21 13:55] LABS: Magnesium 1.9 mg/dL (1.6-2.6); Total Protein 6.5 g/dL (5.7-8.2)
[2024-10-21 13:56] LABS: Bilirubin, Total 0.9 mg/dL (0.2-1.0)
[2024-10-21 14:02] LABS: Alkaline Phosphatase 118 U/L (46-116); Carbon Dioxide 20 mmol/L (20-31); Glucose 113 mg/dL (74-106)
[2024-10-21 14:07] LABS: Blood Urea Nitrogen 105 mg/dL (9-23); Potassium 5.6 mmol/L (3.5-5.1)
[2024-10-21 14:45] LABS: Base Excess -6.6 mmol/L (-2.0-3.0)
[2024-10-21 15:13] LABS: INR 1.34 (0.9-1.15); Partial Thromboplastin Time 37.6 SEC (24.5-34.5); Prothrombin Time 13.8 sec (9.3-11.8)
--- NOTE | 2024-10-21 15:38 | DVH ---
CLINICAL INFORMATION: Increased acute loss of consciousness. TECHNIQUE: Axial imaging was obtained through the brain without contrast. Coronal and sagittal reform atted images were obtained, reviewed, and stored. Images were reviewed in brain and bone windows. Al l CT scans at this medical facility are performed using dose modulation techniques as appropriate to a performed exam including the following: Automated exposure control was utilized; adjustment of the MA and/or KV according to patient size; and use of iterative reconstruction technique. CTDIvol = 48.4 6 mGy DLP = 960.37 mGy-cm COMPARISON: CT HEAD WITHOUT CONTRAST on DOS: 07/14/24, CT HEAD WITHOUT CONTRAST on DOS: 09/21/22 FINDINGS: There is motion artifact, limiting evaluation. No evidence of acute intracranial hemorrhage given the limitations of the examination. The ventricles and sulci are within normal limits in size for age. Basal cisterns are patent. The calvarium is unremarkable. Paranasal sinuses and mastoid air cells are clear. IMPRESSION: 1. Motion limited study. 2. No evidence of acute intracranial hemorrhage given the limitations of the examination.
--- NOTE | 2024-10-21 17:14 | DVHINCON2 ---
Date Seen: Oct 21, 2024 Referring Physician MD Brandy Reason for Consultation Hypotension History of Present Illness This is a 79-year-old female patient who presents to the emergency room with chief complaint of urinary problems. At the time of assessment, the patient is confused and only alert to self and place. History obtained from medical records and bedside RN. According to the bedside RN, the patient's family was concerned about patient having dark-colored urine and becoming altered. She was brought to the emergency room for further evaluation. Initial twelve lead electrocardiogram reveals atrial fibrillation with right bundle branch block. Troponin levels have been negative. Patient denies all cardiac symptoms. Significant past medical history includes congestive heart failure, hypertension, hyperlipidemia, atrial fibrillation (on Eliquis), COPD on home O2, asthma, chronic kidney disease, breast cancer status post bilateral mastectomy, arthritis, anxiety, and morbid obesity. Past Medical History Past medical history reviewed. No other significant than mentioned above. Past Surgical History Bilateral mastectomy Tonsillectomy Cholecystectomy Appendectomy Family History: Colon cancer G8 MOTHER Diabetes mellitus G8 MOTHER Family History Family history reviewed. Social History Patient has a 145 pack years history (5 PPD X 29 years), quit smoking approximately 20 years ago The patient denies any drug use Patient denies any alcohol use Allergies: Coded Allergies: Diphenhydramine (Verified Allergy, Unknown, 09/21/22) Uncoded Allergies: TAPE (Allergy, Unknown, 09/21/22) Home Meds Active Scripts Hydrocodone-Acetaminophen (Hydrocodone Bitartrate/AC 5-325 mg) 1 Tab Tab, 1 TAB PO QID PRN, #30 TAB Prov:NICOL ROMAN MD 10/02/24 Sulfamethoxazole W/Trimethopri (Bactrim Ds Tablet) 1 Tab Tb, 1 TAB PO BID for 10 Days, #20 TAB Prov:CESAR HAYES RESIDENT 07/15/24 Doxycycline Hyclate (Doxycycline Hyclate) 50 Mg Cap, 100 MG PO BID for 10 Days, #20 CAP Prov:CESAR HAYES RESIDENT 07/15/24 Naloxone HCl (Narcan) 4 Mg/0.1 Ml Spr, 4 MG NA PRN PRN for 1 Day, #1 SPRAY 1 Refill Prov:DEONDRE GLEZ MD 05/17/24 Oxycodone Hcl (OxyCONTIN ER Tablet) 20 Mg Tb, 1 TAB PO BID for 7 Days, #14 TAB Prov:DEONDRE GLEZ MD 05/17/24 Albuterol Sulfate (Albuterol Sulfate Hfa) 108 Mcg/Act Aer, 108 MCG IN BID for 30 Days, #1 AER 0 [facility]/16/24 Umeclidinium [place] (Incruse Ellipta) 62.5 Mcg/Inh Inh, 62.5 MCG IN DAILY for 30 Days, #1 INHALER 0 Refills Prov[facility] 05/16/24 Empagliflozin (Jardiance) 10 Mg Tab, 10 MG PO DAILY for 30 Days, #30 TAB 1 Refill Prov:[facility] 05/[facility]/24 Apixaban Base (ELIQUIS) 5 Mg Tab, 1 TAB PO BID for 30 Days, #60 TAB Prov[facility] 05/16/24 Lisinopril (Lisinopril) 20 Mg Tab, 1 TAB PO DAILY for 30 Days, #30 TAB 5 Refills Prov[facility] 05/16/24 Calcium Carbonate (Antacid) (Antacid) 750 Mg Chw, 750 MG PO DAILYPRN PRN for 30 Days, #30 TAB.CHEW Prov:[facility] 05/16/24 Aspirin (Aspir-Low) 81 Mg Tab, 81 MG PO DAILY for 30 Days, #30 MG Prov:[facility] 05/16/24 Ondansetron HCl (Ondansetron) 4 Mg Tab, 4 MG PO PRN PRN for NAUSEA / VOMITING for 30 Days, #30 TAB Prov:[facility] 05/16/24 Atorvastatin Calcium (ATORVASTATIN CALCIUM) 40 Mg Tab, 1 TAB PO DAILY for 30 Days, #30 TAB Prov:[facility] 05/16/24 Amlodipine Besylate (Amlodipine Besylate) 5 Mg Tab, 1 TAB PO DAILY for 30 Days, #30 TAB Prov:[facility] 05/16/24 Metoprolol Succinate (Metoprolol Succinate Er) 25 Mg Tab, 1 TAB PO DAILY for 30 Days, #30 TAB Prov:AJJ[facility] 05/16/24 Reported Medications Mometasone Furoate-Formoterol (Dulera) 1 Aer Aer, 2 PUFF INH BID 07/09/24 Allopurinol (Allopurinol) 300 Mg Tab, 1 TAB PO DAILY 07/09/24 Furosemide (Furosemide) 20 Mg Tab, 1 TAB PO BID 07/09/24 Mometasone Furoate-Formoterol (Dulera) 1 Aer Aer, INH UD for 30 Days, #13 02/02/24 Potassium Chloride (Potassium Chloride ER) 10 Meq Tab, 1 TAB PO DAILY for 30 Days, #30 02/02/24 Senna (Sennosides) 8.6 Mg Tab, 8.6 MG PO, TAB 02/02/24 Cholecalciferol (VITAMIN D3) 2,000 Unit Tab, 1 TAB PO DAILY for 30 Days 02/02/24 Home Meds Home medications reviewed. Current Medications Current Medications Medications (Trade) Dose Ordered Sig/Leonard Route PRN Reason Start Time Stop Time Status Last Admin Atorvastatin Calcium (Lipitor) 20 mg HS PO 10/21/24 22:00 Multivit/Ca Carb/ B Cmplx/FA/Prenat (Nephro-Isak Tablet) 1 tab DAILY PO 10/21/24 10:00 10/21/24 07:31 Famotidine (Pepcid Injection) 20 mg DAILY IV 10/21/24 10:00 10/21/24 07:31 Albuterol (Ventolin Medneb) 2.5 mg Q4HPRN PRN NEB SHORTNESS OF BREATH 10/20/24 23:30 Sodium Chloride (Saline Lock Ns) 10 ml Q8HR IV 10/21/24 06:00 10/21/24 13:04 Acetaminophen/ Hydrocodone Bitart ([place] 5/325MG Tab) 1 tab Q4HP PRN PO MODERATE PAIN (4-6 PAIN SCALE) 10/20/24 23:30 Ondansetron HCl (Zofran) 4 mg Q4HP PRN IV NAUSEA / VOMITING 10/20/24 23:30 Docusate Sodium (Colace Capsule) 100 mg BIDPRN PRN PO FOR CONSTIPATION 10/20/24 23:30 Acetaminophen (Tylenol Tablet) 650 mg Q6HP PRN PO PAIN SCALE 1-3 OR TEMP>100.4 10/20/24 23:30 Nitroglycerin (Ntrostat Sublingual) 0.4 mg Q5MINP PRN SL FOR CHEST PAIN 10/20/24 23:30 Morphine Sulfate 2 mg Q30M PRN IV FOR CHEST PAIN 10/20/24 23:30 Apixaban (Eliquis) 5 mg BID PO 10/21/24 10:00 10/21/24 07:31 Midodrine (Proamatine Tablet) 10 mg TID@0600,1200,1800 PO 10/21/24 06:00 10/21/24 13:42 Norepinephrine Bitartrate 250 ml @ 3.75 mls/hr Q24H IV 10/21/24 04:15 10/21/24 04:48 Ceftriaxone Sodium 50 ml @ 100 mls/hr DAILY@09 IV 10/22/24 09:00 10/21/24 15:38 DC Piperacillin Sod/ Tazobactam Sod 100 ml @ 25 mls/hr Q12HR IV 10/21/24 22:00 Review of Systems Constitutional: No symptom reported Ears, Nose, & Throat: No symptom reported Eyes: No symptom reported Neurological: Altered level of mentation Pulmonary/Respiratory: No symptoms reported Cardiovascular: No symptom reported Gastrointestinal: No symptom reported Genitourinary: Dark urine Musculoskeletal: No symptom reported Skin: No symptom reported Psychiatric: No symptom reported Endocrine: No symptom reported Hematologic/Lymphatic: No symptom reported Vital Signs Vital Signs Date Time Temp Pulse Resp B/P (MAP) Pulse Ox O2 Delivery O2 Flow Rate FiO2 10/21/24 16:00 154/71 10/21/24 15:52 16 94 Nasal Cannula* 4 36 10/21/24 15:52 101 10/21/24 15:45 98.0 98.0 Physical Exam General Appearance: Cooperative. Morbidly obese Pulmonary/Respiratory: Clear, bilateral breaths sounds. Cardiovascular/Chest: Irregularly irregular rate and rhythm Peripheral Pulses: 2+ Radial (R). 2+ Radial (L). 1+ Pedal (R). 1+ Pedal (L) Abdominal Exam: Normal bowel sounds. Soft, non-tender. Ankle Exam: 4+ pitting edema Lower extremities: 4+ pitting edema Neuro/Mental Status: A/OX2, confused Thoughts/Psych: Deferred Appearance: No acute distress. Skin Exam: Multiple scabs and bruises noted to bilateral feet. Purplish discoloration to right 2nd toe. Skin warm and dry to feet. Weeping to bilateral legs Labs/Diagnostic Data Labs Test 10/21/24 15:47 10/21/24 14:40 10/21/24 12:58 10/21/24 12:37 Range/Units Lactic Acid Level 1.4 0.4-2.0 mmol/L Blood Gas Specimen Type Arterial Blood Gas Sample Site Right radial Blood Gas Patient Temperature 37.0 Arterial Blood Date Drawn [id number] Arterial Blood pH 7.338 L 7.350-7.450 Arterial Blood Partial Pressure CO2 35.0 32.0-45.0 mmHg Arterial Blood Partial Pressure O2 75.6 L 83.0-108.0 mmHg Arterial Blood HCO3 18.4 L 21.0-28.0 mmol/L Arterial Blood Oxygen Saturation 94.6 94.0-98.0 % Arterial Blood Base Excess -6.6 L -2.0-3.0 mmol/L Arterial Blood Oxyhemoglobin 92.9 L 94.0-98.0 % Arterial Blood Carboxyhemoglobin 1.3 0.5-1.5 % Arterial Blood Methemoglobin 0.5 0.0-1.5 % [place] Test Yes Blood Gas Total Hemoglobin 13.50 12.0-16.0 g/dL Blood Gas Liter Flow 4.00 Blood Gas Modality Nasal cannula FiO2 % 36.0 Prothrombin Time 13.8 H 9.3-11.8 sec Prothrombin Time INR 1.34 H 0.9-1.15 Activated Partial Thromboplast Time 37.6 H 24.5-34.5 SEC Sodium Level 138 136-145 mmol/L Potassium Level 5.6 *H 3.5-5.1 mmol/L Chloride Level 105 98-107 mmol/L Carbon Dioxide Level 20 20-31 mmol/L Anion Gap 13 5-15 Blood Urea Nitrogen 105 *H 9-23 mg/dL Creatinine 3.25 H 0.550-1.02 mg/dL Glomerular Filtration Rate Calc 14 >90 mL/min BUN/Creatinine Ratio 32.3 H 10.0-20.0 Serum Glucose 113 H 74-106 mg/dL Calcium Level 10.1 8.7-10.4 mg/dL Phosphorus Level 5.6 H 2.4-5.1 mg/dL Magnesium Level 1.9 1.6-2.6 mg/dL Total Bilirubin 0.9 0.2-1.0 mg/dL Aspartate Amino Transferase (AST) 27 13-40 U/L Alanine Aminotransferase (ALT) 12 7-40 U/L Alkaline Phosphatase 118 H 46-116 U/L Total Protein 6.5 5.7-8.2 g/dL Albumin 4.0 3.2-4.8 g/dL Urine Creatinine 25.46 L 30.0-125.0 mg/dL Urine Sodium 84 40-220 mmol/L Test 10/21/24 10:59 10/21/24 03:47 10/20/24 23:30 10/20/24 21:00 Range/Units POC Glucose 92 70-106 mg/dl White Blood Count 8.1 # 4.4-10.8 10^3/uL Red Blood Count 4.26 4.0-5.20 10^6/uL Hemoglobin 12.4 12.2-16.2 g/dL Hematocrit 37.7 36.0-46.0 % Mean Corpuscular Volume 88.5 80.0-100.0 fL Mean Corpuscular Hemoglobin 29.2 28.0-32.0 pg Mean Corpuscular Hemoglobin Concent 32.9 32.0-36.0 g/dL Red Cell Distribution Width 19.4 H 11.8-14.3 % Platelet Count 229 140-450 10^3/uL Mean Platelet Volume 8.7 6.9-10.8 fL Neutrophils (%) (Auto) 83.6 H 37.0-80.0 % Lymphocytes (%) (Auto) 6.6 L 10.0-50.0 % Monocytes (%) (Auto) 7.2 0.0-12.0 % Eosinophils (%) (Auto) 2.0 0.0-7.0 % Basophils (%) (Auto) 0.6 0.0-2.0 % Neutrophils # (Auto) 6.8 1.6-8.6 10 ^3/uL Lymphocytes # (Auto) 0.5 0.4-5.4 10 ^3/uL Monocytes # (Auto) 0.6 0-1.3 10 ^3/uL Eosinophils # (Auto) 0.2 0-0.8 10 ^3/uL Basophils # (Auto) 0 0-0.2 10 ^3/uL Nucleated Red Blood Cells 0.0 % Urine Color Colorless Yellow Urine Clarity Clear Clear Urine pH 5.0 5.0-9.0 Urine Specific [place] 1.009 1.001-1.035 Urine Protein Negative Negative Urine Ketones Negative Negative Urine Blood 3+ H Negative /uL Urine Nitrite Negative Negative Urine Bilirubin Negative Negative Urine Urobilinogen Normal Negative mg/dL Urine Leukocyte Esterase Trace Negative /uL Urine RBC 91 0 - 4 /hpf Urine Microscopic WBC 16 H 0-5 /HPF Urine Squamous Epithelial Cells None seen <5 /hpf Urine Bacteria Few H None Seen /hpf Urine Yeast (Budding) Few None Seen /hpf Urine Glucose Normal Normal mg/dL Troponin I High Sensitivity 9 </=34 ng/L Test 10/20/24 20:08 Range/Units B-Type Natriuretic Peptide 755.19 0-100 pg/mL Lipase 70 H 12-53 U/L Assessment Hypotension Acute on chronic decompensated, HFrEF, NYHA class III (EF 40% per ventriculography on recent angiogram) History of hypertension Hyperlipidemia Atrial fibrillation status post two direct current cardioversions, likely persistent (on Eliquis) Moderate to severe tricuspid regurgitation Moderate to severe mitral regurgitation Chronic kidney disease Hyperkalemia ? Bilateral lower extremity cellulitis Pulmonary hypertension COPD on home O2 Asthma History of tobacco use Morbidly obese, Class 3 Plan/Recommendation We will continue with the following plan/recommendations (): Case discussed with Dr. Amador. Patient was recently seen and discharged from this facility on 10/04/2024. She now returns with urinary issues. Cardiology has now been consulted for hypotension. Patient noted to be severely hyperkalemic at time arrival. Recent coronary angiogram reveals an EF of approximately 40% via ventriculography. Unable to initiate guideline directed medical therapy for CHF given poor renal function. Continue vasopressor therapy for hemodynamic support. [id number] VASc score: 5 points, HAS-BLED: 3 points. Continue NOAC therapy. Unable to initiate beta-keyon given current vasopressor therapy. Avoid antiarrhythmic agents given atrial fibrillation likely persistent at this point.Of note, the patient recently underwent a right and left heart catheterization on 09/29/2024 which revealed normal left ventricular end-diastolic pressure with pulmonary hypertension, decreased left ventricular ejection fraction of 40%, and mild CAD involving the RCA. Patient denies any cardiac symptoms. Continue with close cardiac surveillance and notify cardiology team for any ECG changes. Repeat 12 lead electrocardiogram tomorrow morning. Thank you for allowing us to care for this patient. Please call with any questions or concerns. Critical care time spent: 44 minutes This medical document was created using an electronic medical record system with voice recognition software and computerized dictation system. Although this document has been carefully reviewed, there might still be some phonetic and typographical errors. Occasional wrong-word or ``sound-alike substitutions may have occurred due to the inherent limitations of voice recognition software. These areas are purely typographical due to imperfections of the software programs and do not reflect any compromise in the patient's medical care. Please read the chart carefully and recognize, using context, where these substitutions have occurred. Plan discussed with: Patient NYHA Physical activity limitations: Class3(Marked) ordinary (activity causes symtoms) Date of Service: Oct 21, 2024 Billing Provider: SUNIL OROURKE Cardiology Common Codes: 79995-ONUGDOH INP/OBS CARE (High) Cardiology Consultation Codes: 58091-ENCYIKNAF CONSULT <45MIN SUNIL OROURKE Oct 21, 2024 17:14
[2024-10-21] MEDS: LIDOCAINE 1% (LOCAL ANESTH.) PF 5ml SDV ID ONE (18:06)
[2024-10-21 18:42] LABS: Chloride 105 mmol/L (98-107); Sodium 137 mmol/L (136-145)
[2024-10-21 18:43] LABS: Anion Gap 12 (5-15); Calcium 10.2 mg/dL (8.7-10.4)
--- NOTE | 2024-10-21 18:45 | DVH ---
CHEST RADIOGRAPH Indication: S/P PICC LINE PLACEMENT. Technique: Single frontal view of the chest was obtained COMPARISON: XY CHEST XRAY 1 VIEW on DOS: 09/26/24, XY CHEST XRAY 1 VIEW on DOS: 07/13/24, XY CHEST PORT ABLE on DOS: 07/08/24, XY CHEST XRAY 1 VIEW on DOS: 05/15/24, XY CHEST PORTABLE on DOS: 05/09/24 FINDINGS: Lines and Tubes: Left PICC in satisfactory position. Lungs: Increased interstitial prominence Pleura: No effusion. No pneumothorax. Cardiomediastinal contours: Cardiomegaly Bones: Unremarkable IMPRESSION: Pulmonary vascular congestion. Left PICC in satisfactory position.
[2024-10-21 18:48] LABS: BUN/Creatinine Ratio 32.4 (10.0-20.0)
--- NOTE | 2024-10-21 18:53 | ECG ---
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
[2024-10-21 18:57] LABS: Blood Urea Nitrogen 93 mg/dL (9-23); Carbon Dioxide 20 mmol/L (20-31); Glucose 115 mg/dL (74-106); Potassium 5.9 mmol/L (3.5-5.1)
[2024-10-21] MEDS: ATORVASTATIN 20 MG TAB PO SCH (21:57)
[2024-10-21] MEDS: PIPERACILLIN-TAZOB 3.375GM 100 ML IV SCH (21:57)
--- NOTE | 2024-10-21 23:20 | DVHINCON2 ---
Date of service: Oct 21, [address] Nava [facility] Reason for Consultation Acute hypoxic respiratory failure History of Present Illness The patient is a 79-year-old woman with past medical history of asthma, AFib, cancer, CHF, chronic kidney failure, hypertension and dementia who presented to ED on 10/20/24 with complaint of urinary problem. Daughter reported patient had been having dark-colored urine and was concerned for a UTI, so EMS were called. Denied fever, chills, chest pain, GI symptoms or other acute complaints. Of note, patient reports history of kidney failure, but has not had any treatment or management in years. She was seen and evaluated in the ED. Laboratory data shows WBC 5.6, platelets 261, sodium 134, potassium 6.5, BUN 115, creatinine 3.96, glucose 136, calcium 9.4, BNP 755.19, troponin 10, lipase 70. Blood pressure was 85/41 trending up to 90/70, heart rate 70, temperature 97.6 F, O2 saturation 96% on oxygen. Patient was admitted for further care, and pulmonary consultation is requested for evaluation and management of acute hypoxic respiratory failure. Review of Systems: 14-point review of systems negative unless otherwise noted above. Past Medical History AFIB, Asthma, Cancer, CHF, CKF, Dementia, HTN Past Surgical History Appendectomy, Cholecystectomy, Hysterectomy, Tonsillectomy Medications: Reviewed. Allergies: Diphenhydramine Tape. Family History: No family history of premature CAD. No family history of lung disorders. Social History: Nonsmoker. No alcohol or illicit drug use. Family History: Colon cancer G8 MOTHER Diabetes mellitus G8 MOTHER Allergies: Coded Allergies: Diphenhydramine (Verified Allergy, Unknown, 09/21/22) Uncoded Allergies: TAPE (Allergy, Unknown, 09/21/22) Home Meds Active Scripts Hydrocodone-Acetaminophen (Hydrocodone Bitartrate/AC 5-325 mg) 1 Tab Tab, 1 TAB PO QID PRN, #30 TAB Prov:NICOL ROMAN MD 10/02/24 Sulfamethoxazole W/Trimethopri (Bactrim Ds Tablet) 1 Tab Tb, 1 TAB PO BID for 10 Days, #20 TAB Prov:CESAR HAYES 07/15/24 Doxycycline Hyclate (Doxycycline Hyclate) 50 Mg Cap, 100 MG PO BID for 10 Days, #20 CAP Prov:WEBB RadhaCESAR [facility] 07/15/24 Naloxone HCl (Narcan) 4 Mg/0.1 Ml Spr, 4 MG NA PRN PRN for 1 Day, #1 SPRAY 1 Refill Prov:DEONDRE GLEZ MD 05/17/24 Oxycodone Hcl (OxyCONTIN ER Tablet) 20 Mg Tb, 1 TAB PO BID for 7 Days, #14 TAB Prov:DEONDRE GLEZ MD 05/17/24 Albuterol Sulfate (Albuterol Sulfate Hfa) 108 Mcg/Act Aer, 108 MCG IN BID for 30 Days, #1 AER 0 [facility] VallesGUNDERSEN [facility] 05/16/24 Umeclidinium [place] (Incruse Ellipta) 62.5 Mcg/Inh Inh, 62.5 MCG IN DAILY for 30 Days, #1 INHALER 0 Refills Prov[facility] 05/16/24 Empagliflozin (Jardiance) 10 Mg Tab, 10 MG PO DAILY for 30 Days, #30 TAB 1 Ref[facility] Prov[facility] 05/16/24 Apixaban Base (ELIQUIS) 5 Mg Tab, 1 TAB PO BID for 30 Days, #60 TAB Prov[facility] 05/16/24 Lisinopril (Lisinopril) 20 Mg Tab, 1 TAB PO DAILY for 30 Days, #30 TAB 5 Refills Prov:CHEN SOLANO [facility] 05/16/24 Calcium Carbonate (Antacid) (Antacid) 750 Mg Chw, 750 MG PO DAILYPRN PRN for 30 Days, #30 TAB.CHEW Prov:ESTELA [facility]OGUNDERSEN [facility] 05/16/24 Aspirin (Aspir-Low) 81 Mg Tab, 81 MG PO DAILY for 30 Days, #30 MG Prov[facility] 05/16/24 Ondansetron HCl (Ondansetron) 4 Mg Tab, 4 MG PO PRN PRN for NAUSEA / VOMITING for 30 Days, #30 TAB Prov:CHEN SOLANO [facility] 05/16/24 Atorvastatin Calcium (ATORVASTATIN CALCIUM) 40 Mg Tab, 1 TAB PO DAILY for 30 Days, #30 TAB Prov:[facility] 05/16/24 Amlodipine Besylate (Amlodipine Besylate) 5 Mg Tab, 1 TAB PO DAILY for 30 Days, #30 TAB [facility] 05/16/24 Metoprolol Succinate (Metoprolol Succinate Er) 25 Mg Tab, 1 TAB PO DAILY for 30 Days, #30 TAB Prov:[facility] 05/16/24 Reported Medications Mometasone Furoate-Formoterol (Dulera) 1 Aer Aer, 2 PUFF INH BID 07/09/24 Allopurinol (Allopurinol) 300 Mg Tab, 1 TAB PO DAILY 07/09/24 Furosemide (Furosemide) 20 Mg Tab, 1 TAB PO BID 07/09/24 Mometasone Furoate-Formoterol (Dulera) 1 Aer Aer, INH UD for 30 Days, #13 02/02/24 Potassium Chloride (Potassium Chloride ER) 10 Meq Tab, 1 TAB PO DAILY for 30 Days, #30 02/02/24 Senna (Sennosides) 8.6 Mg Tab, 8.6 MG PO, TAB 02/02/24 Cholecalciferol (VITAMIN D3) 2,000 Unit Tab, 1 TAB PO DAILY for 30 Days 02/02/24 Current Medications Current Medications Medications (Trade) Dose Ordered Sig/Leonard Route PRN Reason Start Time Stop Time Status Last Admin Atorvastatin Calcium (Lipitor) 20 mg HS PO 10/21/24 22:00 10/21/24 21:57 Multivit/Ca Carb/ B Cmplx/FA/Prenat (Nephro-Isak Tablet) 1 tab DAILY PO 10/21/24 10:00 10/21/24 07:31 Famotidine (Pepcid Injection) 20 mg DAILY IV 10/21/24 10:00 10/21/24 07:31 Albuterol (Ventolin Medneb) 2.5 mg Q4HPRN PRN NEB SHORTNESS OF BREATH 10/20/24 23:30 Sodium Chloride (Saline Lock Ns) 10 ml Q8HR IV 10/21/24 06:00 10/21/24 21:57 Acetaminophen/ Hydrocodone Bitart ([place] 5/325MG Tab) 1 tab Q4HP PRN PO MODERATE PAIN (4-6 PAIN SCALE) 10/20/24 23:30 Ondansetron HCl (Zofran) 4 mg Q4HP PRN IV NAUSEA / VOMITING 10/20/24 23:30 Docusate Sodium (Colace Capsule) 100 mg BIDPRN PRN PO FOR CONSTIPATION 10/20/24 23:30 Acetaminophen (Tylenol Tablet) 650 mg Q6HP PRN PO PAIN SCALE 1-3 OR TEMP>100.4 10/20/24 23:30 Nitroglycerin (Ntrostat Sublingual) 0.4 mg Q5MINP PRN SL FOR CHEST PAIN 10/20/24 23:30 Morphine Sulfate 2 mg Q30M PRN IV FOR CHEST PAIN 10/20/24 23:30 Apixaban (Eliquis) 5 mg BID PO 10/21/24 10:00 10/21/24 21:57 Midodrine (Proamatine Tablet) 10 mg TID@0600,1200,1800 PO 10/21/24 06:00 10/21/24 13:42 Norepinephrine Bitartrate 250 ml @ 3.75 mls/hr Q24H IV 10/21/24 04:15 10/21/24 19:47 Ceftriaxone Sodium 50 ml @ 100 mls/hr DAILY@09 IV 10/22/24 09:00 10/21/24 15:38 DC Piperacillin Sod/ Tazobactam Sod 100 ml @ 25 mls/hr Q12HR IV 10/21/24 22:00 10/21/24 21:57 Sodium Chloride (Saline Lock Ns) 10 ml QSHIFT@10,22 IV 10/21/24 22:00 10/21/24 21:58 Vital Signs Vital Signs Date Time Temp Pulse Resp B/P (MAP) Pulse Ox O2 Delivery O2 Flow Rate FiO2 10/21/24 19:47 94/40 10/21/24 18:30 81 13 96 10/21/24 17:43 Nasal Cannula* 4 36 10/21/24 15:45 98.0 98.0 Physical Exam Gen.: Patient lying in bed in no apparent distress. On supplemental oxygen. Head: Normocephalic, atraumatic. Eyes: EOMI/PERRLA. Ears: Normal hearing. Normal anatomy. Neck/trachea: Trachea midline, supple. Nose: Normal external anatomy. Mouth: Moist mucous membranes. Chest: Decreased air entry bilaterally. No wheezing or rhonchi. Cardiovascular: Positive S1, positive S2. Regular rate and rhythm. Abdomen: Positive bowel sounds in all 4 quadrants. Soft, non-tender, non- distended. : Deferred. Rectal: Deferred. Skin: Warm, dry. Intact. Extremities: 2+ radial pulses bilaterally. No lower extremity edema. Neuro: Awake, alert, oriented x3. No gross motor or sensory deficits. Cranial nerves II through XII intact. Gait not assessed. Labs/Diagnostic Data Labs Test 10/21/24 18:05 10/21/24 15:47 10/21/24 14:40 10/21/24 12:58 Range/Units Sodium Level 137 136-145 mmol/L Potassium Level 5.9 *H 3.5-5.1 mmol/L Chloride Level 105 98-107 mmol/L Carbon Dioxide Level 20 20-31 mmol/L Anion Gap 12 5-15 Blood Urea Nitrogen 93 #*H 9-23 mg/dL Creatinine 2.87 H 0.550-1.02 mg/dL Glomerular Filtration Rate Calc 16 >90 mL/min BUN/Creatinine Ratio 32.4 H 10.0-20.0 Serum Glucose 115 H 74-106 mg/dL Calcium Level 10.2 8.7-10.4 mg/dL Lactic Acid Level 1.4 0.4-2.0 mmol/L Blood Gas Specimen Type Arterial Blood Gas Sample Site Right radial Blood Gas Patient Temperature 37.0 Arterial Blood Date Drawn [id number] Arterial Blood pH 7.338 L 7.350-7.450 Arterial Blood Partial Pressure CO2 35.0 32.0-45.0 mmHg Arterial Blood Partial Pressure O2 75.6 L 83.0-108.0 mmHg Arterial Blood HCO3 18.4 L 21.0-28.0 mmol/L Arterial Blood Oxygen Saturation 94.6 94.0-98.0 % Arterial Blood Base Excess -6.6 L -2.0-3.0 mmol/L Arterial Blood Oxyhemoglobin 92.9 L 94.0-98.0 % Arterial Blood Carboxyhemoglobin 1.3 0.5-1.5 % Arterial Blood Methemoglobin 0.5 0.0-1.5 % [place] Test Yes Blood Gas Total Hemoglobin 13.50 12.0-16.0 g/dL Blood Gas Liter Flow 4.00 Blood Gas Modality Nasal cannula FiO2 % 36.0 Prothrombin Time 13.8 H 9.3-11.8 sec Prothrombin Time INR 1.34 H 0.9-1.15 Activated Partial Thromboplast Time 37.6 H 24.5-34.5 SEC Phosphorus Level 5.6 H 2.4-5.1 mg/dL Magnesium Level 1.9 1.6-2.6 mg/dL Total Bilirubin 0.9 0.2-1.0 mg/dL Aspartate Amino Transferase (AST) 27 13-40 U/L Alanine Aminotransferase (ALT) 12 7-40 U/L Alkaline Phosphatase 118 H 46-116 U/L Total Protein 6.5 5.7-8.2 g/dL Albumin 4.0 3.2-4.8 g/dL Test 10/21/24 12:37 10/21/24 10:59 10/21/24 03:47 10/20/24 23:30 Range/Units Urine Creatinine 25.46 L 30.0-125.0 mg/dL Urine Sodium 84 40-220 mmol/L POC Glucose 92 70-106 mg/dl White Blood Count 8.1 # 4.4-10.8 10^3/uL Red Blood Count 4.26 4.0-5.20 10^6/uL Hemoglobin 12.4 12.2-16.2 g/dL Hematocrit 37.7 36.0-46.0 % Mean Corpuscular Volume 88.5 80.0-100.0 fL Mean Corpuscular Hemoglobin 29.2 28.0-32.0 pg Mean Corpuscular Hemoglobin Concent 32.9 32.0-36.0 g/dL Red Cell Distribution Width 19.4 H 11.8-14.3 % Platelet Count 229 140-450 10^3/uL Mean Platelet Volume 8.7 6.9-10.8 fL Neutrophils (%) (Auto) 83.6 H 37.0-80.0 % Lymphocytes (%) (Auto) 6.6 L 10.0-50.0 % Monocytes (%) (Auto) 7.2 0.0-12.0 % Eosinophils (%) (Auto) 2.0 0.0-7.0 % Basophils (%) (Auto) 0.6 0.0-2.0 % Neutrophils # (Auto) 6.8 1.6-8.6 10 ^3/uL Lymphocytes # (Auto) 0.5 0.4-5.4 10 ^3/uL Monocytes # (Auto) 0.6 0-1.3 10 ^3/uL Eosinophils # (Auto) 0.2 0-0.8 10 ^3/uL Basophils # (Auto) 0 0-0.2 10 ^3/uL Nucleated Red Blood Cells 0.0 % Urine Color Colorless Yellow Urine Clarity Clear Clear Urine pH 5.0 5.0-9.0 Urine Specific [place] 1.009 1.001-1.035 Urine Protein Negative Negative Urine Ketones Negative Negative Urine Blood 3+ H Negative /uL Urine Nitrite Negative Negative Urine Bilirubin Negative Negative Urine Urobilinogen Normal Negative mg/dL Urine Leukocyte Esterase Trace Negative /uL Urine RBC 91 0 - 4 /hpf Urine Microscopic WBC 16 H 0-5 /HPF Urine Squamous Epithelial Cells None seen <5 /hpf Urine Bacteria Few H None Seen /hpf Urine Yeast (Budding) Few None Seen /hpf Urine Glucose Normal Normal mg/dL Test 10/20/24 21:00 10/20/24 20:08 Range/Units Troponin I High Sensitivity 9 </=34 ng/L B-Type Natriuretic Peptide 755.19 0-100 pg/mL Lipase 70 H 12-53 U/L Assessment Impression: Acute hypoxic respiratory failure Dependence on supplemental oxygen Urinary tract infection Septic shock Cellulitis Acute metabolic encephalopathy Super morbid obesity, BMI 54.7 Plan: Supplemental oxygen Titrate to keep O2 sats above 92%. Taper O2 as tolerated. Mentation improving. Monitor closely. On pressors for hemodynamic support Levophed 10 mcg/min Titrate to keep mean arterial pressure greater than 65 mmHg. Continue antibiotics Follow up cultures Eliquis BID Accu-Cheks, ISS. Diurese with Lasix Monitor renal function. Monitor electrolytes. Supplement as necessary. Monitor ins and outs. Diet and lifestyle modifications for weight reduction Obesity complicates all care DVT prophylaxis. Prognosis: Poor given patient's multiple co-morbidities. Condition: Critical Rest of plan per hospitalist and other consultants. A total of 35 minutes of critical care time was spent reviewing the patient record, examining the patient, making a diagnostic and therapeutic plan, discussing this plan with the medical personnel, following up on diagnostic studies and following the patient for clinical stability excluding any and all procedures. At least 50% of this time was spent in direct, [id number] contact. Thank you Dr. Nava for allowing me to participate in this patient's care. Further recommendations will depend on the patient's clinical course. Please do not hesitate to contact me if you have any questions or concerns. This medical document was created using an electronic medical record system with [employer]ave dictation system. Although these documentations are being carefully reviewed, there may still be some phonetic and typographical changes. The errors are purely typographical, due to imperfection on the software program, and do not reflect any compromise in the patient's medical care. Plan discussed with: Other (TAMICA Dubon/Dr. Nava) CALEB FLOR MD Oct 21, 2024 23:20
[2024-10-22] VITALS (98 sets, daily range): BP systolic 80–125; BP diastolic 40–105; PULSE 62–126; RESP 10–33; TEMP 96.8–98.1; O2SAT 85–100
[2024-10-22 00:21] LABS: Potassium 5.1 mmol/L (3.5-5.1); Sodium 140 mmol/L (136-145)
[2024-10-22 00:22] LABS: Anion Gap 11 (5-15); Carbon Dioxide 22 mmol/L (20-31)
[2024-10-22 00:23] LABS: Calcium 9.1 mg/dL (8.7-10.4)
[2024-10-22 00:27] LABS: BUN/Creatinine Ratio 35.6 (10.0-20.0); Chloride 107 mmol/L (98-107)
[2024-10-22 00:37] LABS: Blood Urea Nitrogen 85 mg/dL (9-23); Glucose 112 mg/dL (74-106)
[2024-10-22 03:28] LABS: Hematocrit 40.4 % (36.0-46.0); Hemoglobin 12.9 g/dL (12.2-16.2); Mean Corpuscular Hemoglobin 28.3 pg (28.0-32.0); Mean Corpuscular Volume 88.9 fL (80.0-100.0); Nucleated Red Blood Cells % 0.1 %
[2024-10-22 03:40] LABS: Alanine Aminotransferase 10 U/L (7-40); Albumin 3.8 g/dL (3.2-4.8); Alkaline Phosphatase 106 U/L (46-116); Anion Gap 14 (5-15); BUN/Creatinine Ratio 34.1 (10.0-20.0); Calcium 9.2 mg/dL (8.7-10.4); Chloride 107 mmol/L (98-107); Magnesium 1.8 mg/dL (1.6-2.6); Sodium 140 mmol/L (136-145); Total Protein 6.7 g/dL (5.7-8.2)
[2024-10-22 03:41] LABS: Bilirubin, Total 1.0 mg/dL (0.2-1.0)
[2024-10-22 03:46] LABS: Blood Urea Nitrogen 77 mg/dL (9-23); Carbon Dioxide 19 mmol/L (20-31); Glucose 131 mg/dL (74-106); Potassium 5.2 mmol/L (3.5-5.1)
--- NOTE | 2024-10-22 05:48 | DVH ---
CHEST RADIOGRAPH Indication: Respiratory, chf Technique: Single frontal view of the chest was obtained Comparison: XY CHEST PORTABLE on DOS: 10/21/24, XY CHEST XRAY 1 VIEW on DOS: 09/26/24, XY CHEST XRAY 1 V IEW on DOS: 07/13/24, XY CHEST PORTABLE on DOS: 07/08/24, XY CHEST XRAY 1 VIEW on DOS: 05/15/24, XY CHES T PORTABLE on DOS: 10/21/24 FINDINGS: Lines and Tubes: Left PICC in satisfactory position. Lungs: Increased interstitial prominence Pleura: No effusion. No pneumothorax. Cardiomediastinal contours: Cardiomegaly Bones: Unremarkable IMPRESSION: Pulmonary vascular congestion. Left PICC in satisfactory position.
[2024-10-22 07:39] LABS: Bilirubin, Direct 0.5 mg/dL (<0.3)
[2024-10-22] MEDS: ALBUTEROL SULF 2.5 MG/0.5ML(0.5%) NEB SOLN NEB PRN (08:30)
[2024-10-22] MEDS ORDERED: cefTRIAXone 1GM/50ML D5W 50 ML IV SCH (09:00)
--- NOTE | 2024-10-22 10:49 | DVHPN2 ---
Progress Note - Dictate Date Seen: Oct 22, 2024 Medical Necessity Reason Pt with a Central, PICC or Fol: Yes The following are medically ne: Swartz Catheter Reason for swartz catheter: Strict I&O Subjective More awake and alert this morning vital signs Vital Sign Date Time Temp Pulse Resp B/P (MAP) Pulse Ox O2 Delivery O2 Flow Rate FiO2 10/22/24 08:38 101 18 98 10/22/24 08:30 90/66 (74) 10/22/24 08:30 Nasal Cannula* 5 40 10/22/24 08:15 96.8 96.8 Total Intake and Output 10/21/24 10/21/24 10/22/24 15:00 23:00 07:00 Intake Total 522.50 ml 665.00 ml 250.00 ml Output Total 2800 ml 2850 ml Balance 522.50 ml -2135.00 ml -2600.00 ml medications Current Medications Medications Dose Ordered Sig/Leonard Route Start Time Stop Time Status Last Admin Dose Admin Atorvastatin Calcium 20 mg HS PO 10/21/24 22:00 10/21/24 21:57 20 MG Multivit/Ca Carb/ B Cmplx/FA/Prenat 1 tab DAILY PO 10/21/24 10:00 10/22/24 08:02 1 TAB Famotidine 20 mg DAILY IV 10/21/24 10:00 10/22/24 08:02 20 MG Albuterol 2.5 mg Q4HPRN PRN NEB 10/20/24 23:30 10/22/24 08:30 2.5 MG Sodium Chloride 10 ml Q8HR IV 10/21/24 06:00 10/22/24 06:08 10 ML Acetaminophen/ Hydrocodone Bitart 1 tab Q4HP PRN PO 10/20/24 23:30 Ondansetron HCl 4 mg Q4HP PRN IV 10/20/24 23:30 Docusate Sodium 100 mg BIDPRN PRN PO 10/20/24 23:30 Acetaminophen 650 mg Q6HP PRN PO 10/20/24 23:30 Nitroglycerin 0.4 mg Q5MINP PRN SL 10/20/24 23:30 Morphine Sulfate 2 mg Q30M PRN IV 10/20/24 23:30 Apixaban 5 mg BID PO 10/21/24 10:00 10/22/24 08:02 5 MG Midodrine 10 mg TID@0600,1200,1800 PO 10/21/24 06:00 10/22/24 06:08 10 MG Norepinephrine Bitartrate 250 ml @ 3.75 mls/hr Q24H IV 10/21/24 04:15 10/22/24 06:08 18.75 MLS/HR Piperacillin Sod/ Tazobactam Sod 100 ml @ 25 mls/hr Q12HR IV 10/21/24 22:00 10/22/24 08:02 25 MLS/HR Sodium Chloride 10 ml QSHIFT@10,22 IV 10/21/24 22:00 10/22/24 08:02 10 ML objective Gen: nad heent: nc/at, mmm lungs: cta anteriorly cvs: no rub abd: soft, bowel sounds audible ext: + edema laboratory and microbiology Laboratory Tests 10/22/24 03:00 Test 10/22/24 03:00 Range/Units Serum Glucose 131 H 74-106 mg/dL Assessment/Plan IMP: 1) Hemodynamically mediated JULIANNA/VMN, prerenal state 2) CKD stage II 3) hyperkalemia possibly in setting of acute kidney injury, concurrent therapy with BEBO inhibition as outpatient with resultant hypo renin, hypoaldo state 4) toxic metabolic encephalopathy 5) history of hypertension REC: - IV fluids at maintenance until patient demonstrates adequate p.o. - hyperkalemia, acute kidney injury improving Plan discussed with: Patient SEAMUS MCDONALD MD Oct 22, 2024 10:49
--- NOTE | 2024-10-22 13:34 | DVHPN2 ---
Subjective The patient is seen and examined at bedside. More alert awake today. Reviewed: Care Plan, H&P, Labs, Medications, Previous Orders, Radiology Changes from previous H/P or p: No Changes Eyes: No Pain, No Vision change, No Conjunctivae inflammation, No Eyelid inflammation, No Other, No Redness ENT: No Ear pain, No Ear discharge, No Nose pain, No Nose discharge, No Nose congestion, No Mouth pain, No Mouth swelling, No Throat pain, No Throat swelling, No Other Cardiovascular: No Chest Pain, No Palpitations, No Orthopnea, No Paroxysmal Noc. Dyspnea, No Edema, No Lt Headedness, No Other Respiratory: No Cough, No Dry, No Shortness of breath, No SOB with excertion, No Wheezing, No Hemoptysis, No Pleuritic Pain, No Sputum, No Other Gastrointestinal: No Nausea, No Vomiting, No Abdominal Pain, No Diarrhea, No Constipation, No Melena, No Hematochezia, No Other Genitourinary: No Dysuria, No Frequency, No Incontinence; Hematuria; No Retention; Other (Dark colored urine, Hutchinson catheter in place.) Musculoskeletal: No other, No neck pain, No shoulder pain, No arm pain, No back pain, No hand pain, No leg pain, No foot pain Skin: No Rash, No Lesions, No Jaundice, No Bruising, No Other Objective Vitals Vital Signs Date Time Temp Pulse Resp B/P (MAP) Pulse Ox O2 Delivery O2 Flow Rate FiO2 10/22/24 13:32 90 10/22/24 13:32 15 98 Nasal Cannula* 4 36 10/22/24 13:00 111/60 10/22/24 11:45 97.6 97.6 Intake/Output Intake and Output 10/22/24 07:00 Intake Total 1437.50 ml Output Total 5650 ml Balance -4212.50 ml Intake Oral 100 ml IV Total 1337.50 ml Output Urine Total 5650 ml General Appearance: Alert, Cooperative HEENT: Atraumatic, PERRLA, EOMI, Mucous membr. moist/pink Neck: Supple Lungs: Clear to auscultation, Normal air movement Cardiovascular: Regular rate, Normal S1, Normal S2, No murmurs, Gallops, Rubs Abdomen: Normal bowel sounds, Soft, No tenderness Neuro: Cranial nerves 3-12 NL Psych/Mental Status: Other (Alert awake) Medications Current Medications Medications Dose Ordered Sig/Leonard Route Start Time Stop Time Status Last Admin Dose Admin Atorvastatin Calcium 20 mg HS PO 10/21/24 22:00 10/21/24 21:57 20 MG Multivit/Ca Carb/ B Cmplx/FA/Prenat 1 tab DAILY PO 10/21/24 10:00 10/22/24 08:02 1 TAB Famotidine 20 mg DAILY IV 10/21/24 10:00 10/22/24 08:02 20 MG Albuterol 2.5 mg Q4HPRN PRN NEB 10/20/24 23:30 10/22/24 08:30 2.5 MG Sodium Chloride 10 ml Q8HR IV 10/21/24 06:00 10/22/24 11:50 10 ML Ondansetron HCl 4 mg Q4HP PRN IV 10/20/24 23:30 Docusate Sodium 100 mg BIDPRN PRN PO 10/20/24 23:30 Acetaminophen 650 mg Q6HP PRN PO 10/20/24 23:30 Nitroglycerin 0.4 mg Q5MINP PRN SL 10/20/24 23:30 Morphine Sulfate 2 mg Q30M PRN IV 10/20/24 23:30 Apixaban 5 mg BID PO 10/21/24 10:00 10/22/24 08:02 5 MG Midodrine 10 mg TID@0600,1200,1800 PO 10/21/24 06:00 10/22/24 12:02 10 MG Norepinephrine Bitartrate 250 ml @ 3.75 mls/hr Q24H IV 10/21/24 04:15 10/22/24 06:08 18.75 MLS/HR Piperacillin Sod/ Tazobactam Sod 100 ml @ 25 mls/hr Q12HR IV 10/21/24 22:00 10/22/24 08:02 25 MLS/HR Sodium Chloride 10 ml QSHIFT@10,22 IV 10/21/24 22:00 10/22/24 08:02 10 ML Oxycodone HCl 20 mg TIDPRN PRN PO 10/22/24 13:30 UNV Laboratory Results Laboratory Tests 10/22/24 03:00 Chemistry Test 10/21/24 18:05 10/21/24 23:35 10/22/24 03:00 Calcium Level 10.2 mg/dL (8.7-10.4) 9.1 mg/dL (8.7-10.4) 9.2 mg/dL (8.7-10.4) Albumin 3.8 g/dL (3.2-4.8) Magnesium Level 1.8 mg/dL (1.6-2.6) Total Protein 6.7 g/dL (5.7-8.2) LFT Test 10/22/24 03:00 Alanine Aminotransferase (ALT) 10 U/L (7-40) Alkaline Phosphatase 106 U/L (46-116) Aspartate Amino Transferase (AST) 27 U/L (13-40) Direct Bilirubin 0.5 mg/dL (<0.3) H Total Bilirubin 1.0 mg/dL (0.2-1.0) HgA1c, TSH Test 10/22/24 03:00 Hemoglobin A1c 6.0 % A1C (<5.7) H Urinalysis Test 10/20/24 23:30 10/21/24 12:37 Urine Color Colorless (Yellow) Urine Clarity Clear (Clear) Urine pH 5.0 (5.0-9.0) Urine Specific [place] 1.009 (1.001-1.035) Urine Protein Negative (Negative) Urine Ketones Negative (Negative) Urine Blood 3+ /uL (Negative) H Urine Nitrite Negative (Negative) Urine Bilirubin Negative (Negative) Urine Urobilinogen Normal mg/dL (Negative) Urine Leukocyte Esterase Trace /uL (Negative) Urine RBC 91 /hpf (0 - 4) Urine Microscopic WBC 16 /HPF (0-5) H Urine Squamous Epithelial Cells None seen /hpf (<5) Urine Bacteria Few /hpf (None Seen) H Urine Yeast (Budding) Few /hpf (None Seen) Urine Glucose Normal mg/dL (Normal) Urine Creatinine 25.46 mg/dL (30.0-125.0) L Urine Sodium 84 mmol/L (40-220) Blood Gas Results Test 10/21/24 14:40 Arterial Blood pH 7.338 (7.350-7.450) FiO2 % 36.0 Microbiology Microbiology Date/Time Source Procedure Growth Status 10/21/24 12:37 Urine - [place] Urine Culture - Preliminary Resulted Labs and/or images reviewed: Labs reviewed by me, Image(s) reviewed by me Assessment/Plan Assessment/Plan Sepsis Hypotension Acute respiratory failure End stage renal disease Hyperkalemia Pancreatitis Generalized weakness Acute exacerbation of CHF (congestive heart failure) Continuing current management. Continuing with vasopressor, Levophed. Appreciate Nephrology input. Patient received leukemia. I will consulted pulmonology We will get a stat chest x-ray and also stat ABG Continuing to keep NPO We will monitor lipase Hemodialysis per schedule We will start the patient on IV antibiotic with cefepime. We will follow up with culture. Head CT without contrast to rule out CVA Critical care spent for this case is 37 minute excluding procedure This medical document was created using an electronic medical record system with [employer] dictation system. Although this document has been carefully reviewed, there may still be some phonetic and typographical errors. These areas are purely typographical due to imperfections of the software programs, and do not reflect any compromise in the patient's medical care. Plan discussed with: Patient, Other (RN) My Orders Orders - DEN HUNTER MD Procedure Category Date Status Time Head Without Contrast CT 10/21/24 Resulted 14:20 Abg W/ Co-Ox RT 10/21/24 Logged 14:22 Blood Culture ANILA 10/21/24 In Process 14:39 * Cardiology Consult CONS 10/21/24 Transmitted 14:39 Urine Bacterial ANILA 10/21/24 In Process Culture 15:42 *Consult CONS 10/21/24 Transmitted / 14:39 * Picc Line Consult CONS 10/21/24 Transmitted 14:39 Mrsa Screen ANILA 10/21/24 In Process 15:40 Nursing Protocol Picc DEBRA 10/21/24 In Process 17:46 Change Dressing Prn DEBRA 10/21/24 In Process 17:46 PICC BD 10/21/24 Transmitted 17:46 Sodium Chloride Lock PHA 10/21/24 In Process (Saline Lock Ns) 22:00 Do Not Use Picc For DEBRA 10/21/24 In Process Blood Cult 17:46 May Draw Blood From DEBRA 10/21/24 In Process Picc 17:46 Chest Portable XY 10/21/24 Resulted 17:46 Ok To Use Picc DEBRA 10/21/24 In Process 17:46 Change Picc Dressing DEBRA 10/21/24 In Process Q7 Days 17:46 Chest Portable XY 10/22/24 Resulted 04:00 Apply Barrier Cream DEBRA 10/21/24 In Process 10:00 * Dietary Consult CONS 10/21/24 Transmitted 20:03 * Wound Consult CONS 10/21/24 Transmitted Date of Service: Oct 22, 2024 Billing Provider: DEN HUNTER MD Common Visit Codes: [id number] CARE 30-74 MIN DEN HUNTER MD Oct 22, 2024 13:34
--- NOTE | 2024-10-22 14:12 | DVHPN2 ---
Consult Progress Note Subjective Other Systems: Denies any cardiac symptoms. Remains in atrial fibrillation with controlled rate Objective vital signs Vital Sign Date Time Temp Pulse Resp B/P (MAP) Pulse Ox O2 Delivery O2 Flow Rate FiO2 10/22/24 13:32 90 10/22/24 13:32 15 98 Nasal Cannula* 4 36 10/22/24 13:00 111/60 10/22/24 11:45 97.6 97.6 Total Intake and Output 10/21/24 10/21/24 10/22/24 15:00 23:00 07:00 Intake Total 522.50 ml 665.00 ml 250.00 ml Output Total 2800 ml 2850 ml Balance 522.50 ml -2135.00 ml -2600.00 ml medications Current Medications Medications Dose Ordered Sig/Leonard Route Start Time Stop Time Status Last Admin Dose Admin Atorvastatin Calcium 20 mg HS PO 10/21/24 22:00 10/21/24 21:57 20 MG Multivit/Ca Carb/ B Cmplx/FA/Prenat 1 tab DAILY PO 10/21/24 10:00 10/22/24 08:02 1 TAB Famotidine 20 mg DAILY IV 10/21/24 10:00 10/22/24 08:02 20 MG Albuterol 2.5 mg Q4HPRN PRN NEB 10/20/24 23:30 10/22/24 08:30 2.5 MG Sodium Chloride 10 ml Q8HR IV 10/21/24 06:00 10/22/24 11:50 10 ML Ondansetron HCl 4 mg Q4HP PRN IV 10/20/24 23:30 Docusate Sodium 100 mg BIDPRN PRN PO 10/20/24 23:30 Acetaminophen 650 mg Q6HP PRN PO 10/20/24 23:30 Nitroglycerin 0.4 mg Q5MINP PRN SL 10/20/24 23:30 Morphine Sulfate 2 mg Q30M PRN IV 10/20/24 23:30 Apixaban 5 mg BID PO 10/21/24 10:00 10/22/24 08:02 5 MG Midodrine 10 mg TID@0600,1200,1800 PO 10/21/24 06:00 10/22/24 12:02 10 MG Norepinephrine Bitartrate 250 ml @ 3.75 mls/hr Q24H IV 10/21/24 04:15 10/22/24 06:08 18.75 MLS/HR Piperacillin Sod/ Tazobactam Sod 100 ml @ 25 mls/hr Q12HR IV 10/21/24 22:00 10/22/24 08:02 25 MLS/HR Sodium Chloride 10 ml QSHIFT@10,22 IV 10/21/24 22:00 10/22/24 08:02 10 ML Oxycodone HCl 20 mg TIDPRN PRN PO 10/22/24 13:30 Examination: LUNGS:Normal, CVS:Normal, NEURO:Normal laboratory and microbiology Laboratory Tests 10/22/24 03:00 Test 10/22/24 03:00 Range/Units Serum Glucose 131 H 74-106 mg/dL Problem List/Assessment/Plan Problem List/Assessment/Plan Hypotension in the setting of septic shock Acute on chronic decompensated, HFrEF, NYHA class III (EF 40% per ventriculography on recent angiogram) History of hypertension Hyperlipidemia Atrial fibrillation status post two direct current cardioversions, likely persistent (on Eliquis) Moderate to severe tricuspid regurgitation Moderate to severe mitral regurgitation Chronic kidney disease Hyperkalemia ? Bilateral lower extremity cellulitis Pulmonary hypertension COPD on home O2 Asthma History of tobacco use Morbidly obese, Class 3 Plan/Recommendations (): Case discussed with Dr. Amador. Recent coronary angiogram reveals an EF of approximately 40% via ventriculography. Unable to initiate guideline directed medical therapy for CHF given poor renal function. Vasopressors recently stopped by primary RN for stable blood pressures. SAQ0EX2 VASc score: 5 points, HAS-BLED: 3 points. Continue NOAC therapy. Restart beta-keyon with stable BP. Avoid antiarrhythmic agents given atrial fibrillation likely persistent at this point. A repeat 12 lead electrocardiogram was obtained earlier this morning, and reveals atrial fibrillation with PVCs and right bundle branch block. Of note, the patient recently underwent a right and left heart catheterization on 09/29/2024 which revealed normal left ventricular end- diastolic pressure with pulmonary hypertension, decreased left ventricular ejection fraction of 40%, and mild CAD involving the RCA. Patient denies any cardiac symptoms. There is no further inpatient cardiac workup indicated at this time. Cardiology will sign off. Thank you for allowing us to care for this patient. Please call with any questions or concerns. Critical care time spent: 38 minutes. This medical document was created using an electronic medical record system with voice recognition software and computerized dictation system. Although this document has been carefully reviewed, there might still be some phonetic and typographical errors. Occasional wrong-word or ``sound-alike substitutions may have occurred due to the inherent limitations of voice recognition software. These areas are purely typographical due to imperfections of the software programs and do not reflect any compromise in the patient's medical care. Please read the chart carefully and recognize, using context, where these substitutions have occurred. Plan discussed with: Other (Bedside RN) Date of Service: Oct 22, 2024 Billing Provider: SUNIL OROURKE Common Visit Codes: [id number] CARE 30-74 MIN SUNIL OROURKE Oct 22, 2024 14:11
--- NOTE | 2024-10-22 23:57 | DVHPN2 ---
Progress Note - Dictate Date Seen: Oct 22, 2024 Medical Necessity Reason Pt with a Central, PICC or Fol: Yes The following are medically ne: Swartz Catheter Reason for swartz catheter: Strict I&O Subjective Patient seen and examined at bedside. Remains on supplemental oxygen Overnight events reviewed. [facility] vital signs Vital Sign Date Time Temp Pulse Resp B/P (MAP) Pulse Ox O2 Delivery O2 Flow Rate FiO2 10/22/24 18:30 90 15 102/60 (74) 98 10/22/24 17:55 Nasal Cannula* 4 36 10/22/24 16:30 97.8 97.8 Total Intake and Output 10/21/24 10/21/24 10/22/24 15:00 23:00 07:00 Intake Total 522.50 ml 665.00 ml 250.00 ml Output Total 2800 ml 2850 ml Balance 522.50 ml -2135.00 ml -2600.00 ml medications Current Medications Medications Dose Ordered Sig/Leonard Route Start Time Stop Time Status Last Admin Dose Admin Atorvastatin Calcium 20 mg HS PO 10/21/24 22:00 10/22/24 22:49 20 MG Multivit/Ca Carb/ B Cmplx/FA/Prenat 1 tab DAILY PO 10/21/24 10:00 10/22/24 08:02 1 TAB Famotidine 20 mg DAILY IV 10/21/24 10:00 10/22/24 08:02 20 MG Albuterol 2.5 mg Q4HPRN PRN NEB 10/20/24 23:30 10/22/24 08:30 2.5 MG Sodium Chloride 10 ml Q8HR IV 10/21/24 06:00 10/22/24 22:49 10 ML Ondansetron HCl 4 mg Q4HP PRN IV 10/20/24 23:30 Docusate Sodium 100 mg BIDPRN PRN PO 10/20/24 23:30 Acetaminophen 650 mg Q6HP PRN PO 10/20/24 23:30 Nitroglycerin 0.4 mg Q5MINP PRN SL 10/20/24 23:30 Morphine Sulfate 2 mg Q30M PRN IV 10/20/24 23:30 Apixaban 5 mg BID PO 10/21/24 10:00 10/22/24 22:49 5 MG Midodrine 10 mg TID@0600,1200,1800 PO 10/21/24 06:00 10/22/24 17:21 10 MG Norepinephrine Bitartrate 250 ml @ 3.75 mls/hr Q24H IV 10/21/24 04:15 10/22/24 06:08 18.75 MLS/HR Piperacillin Sod/ Tazobactam Sod 100 ml @ 25 mls/hr Q12HR IV 10/21/24 22:00 10/22/24 22:50 25 MLS/HR Sodium Chloride 10 ml QSHIFT@10,22 IV 10/21/24 22:00 10/22/24 22:50 10 ML Oxycodone HCl 20 mg TIDPRN PRN PO 10/22/24 13:30 10/22/24 22:49 20 MG objective Gen.: Patient lying in bed in no apparent distress. On supplemental oxygen. Head: Normocephalic, atraumatic. Eyes: EOMI/PERRLA. Ears: Normal hearing. Normal anatomy. Neck/trachea: Trachea midline, supple. Nose: Normal external anatomy. Mouth: Moist mucous membranes. Chest: Decreased air entry bilaterally. No wheezing or rhonchi. Cardiovascular: Positive S1, positive S2. Regular rate and rhythm. Abdomen: Positive bowel sounds in all 4 quadrants. Soft, non-tender, non- distended. : Deferred. Rectal: Deferred. Skin: Warm, dry. Intact. Extremities: 2+ radial pulses bilaterally. No lower extremity edema. Neuro: Awake, alert, oriented x3. No gross motor or sensory deficits. Cranial nerves II through XII intact. Gait not assessed. laboratory and microbiology Laboratory Tests 10/22/24 03:00 Test 10/22/24 03:00 Range/Units Serum Glucose 131 H 74-106 mg/dL Assessment/Plan Impression: Acute hypoxic respiratory failure Dependence on supplemental oxygen Urinary tract infection Septic shock Cellulitis Acute metabolic encephalopathy Super morbid obesity, BMI 54.7 Events: Remains on supplemental oxygen, 4 LPM NC Taper O2 as tolerated Improved O2 requirements On pressors for hemodynamic support Levophed 10 mcg/min Titrate to keep MAP above 65 mmHg/SBP above 90 mmHg. Taper pressors as tolerated Continue antibiotics - Zosyn On sildenafil for pulmonary hypertension - on hold due to hypotension. On Eliquis, metoprolol Monitor blood pressure Resume home pain medication regimen Restart oxycodone q.8 hours Avoid oversedation Note, pt requests ondansetron for nausea. Monitor renal function. Monitor electrolytes. Supplement as necessary. Potassium currently 5.2 Labs and imaging reviewed. Rest of plan as noted below. Plan: Supplemental oxygen Titrate to keep O2 sats above 92%. Taper O2 as tolerated. Mentation improving. Monitor closely. On pressors for hemodynamic support Titrate to keep MAP above 65 mmHg/SBP above 90 mmHg. Continue antibiotics Follow up cultures Eliquis BID Monitor renal function. Monitor electrolytes. Supplement as necessary. Monitor ins and outs. Diet and lifestyle modifications for weight reduction Obesity complicates all care DVT prophylaxis. Prognosis: Poor given patient's multiple co-morbidities. Condition: Critical Rest of plan per hospitalist and other consultants. A total of 35 minutes of critical care time was spent reviewing the patient record, examining the patient, making a diagnostic and therapeutic plan, discussing this plan with the medical personnel, following up on diagnostic studies and following the patient for clinical stability excluding any and all procedures. At least 50% of this time was spent in direct, [id number] contact. Thank you Dr. Nava for allowing me to participate in this patient's care. Further recommendations will depend on the patient's clinical course. Please do not hesitate to contact me if you have any questions or concerns. This medical document was created using an electronic medical record system with [employer] dictation system. Although these documentations are being carefully reviewed, there may still be some phonetic and typographical changes. The errors are purely typographical, due to imperfection on the software program, and do not reflect any compromise in the patient's medical care. Dietary Evaluation Review Comments: 1) Initiate Nepro bid 2) If PO intake < 50%, consider EN/TPN to meet at least 75% of estimated needs 3) Refer to outpatient RD for weight management 4) Follow-up with cardiology, pulmonology, and nephrology 5) Continue to monitor I&O, labs, and skin integrity Expected Outcomes/Goals: 1) appetite and labs to improve 2) wounds to improve 3) f/u in 2-3 days Plan discussed with: Other (TAMICA Dubon) Critical Care Time(min): 35 CALEB LFOR MD Oct 22, 2024 23:57
[2024-10-23] VITALS (99 sets, daily range): BP systolic 74–121; BP diastolic 38–77; PULSE 57–112; RESP 11–31; TEMP 97–98.5; O2SAT 93–100
[2024-10-23 04:04] LABS: Hematocrit 36.5 % (36.0-46.0); Hemoglobin 11.9 g/dL (12.2-16.2); Mean Corpuscular Hemoglobin 28.5 pg (28.0-32.0); Mean Corpuscular Volume 87.4 fL (80.0-100.0); Nucleated Red Blood Cells % 0.0 %
[2024-10-23 04:16] LABS: Potassium 4.0 mmol/L (3.5-5.1); Sodium 145 mmol/L (136-145)
[2024-10-23 04:17] LABS: Anion Gap 11 (5-15); Calcium 9.4 mg/dL (8.7-10.4); Carbon Dioxide 25 mmol/L (20-31)
[2024-10-23 04:22] LABS: Glucose 83 mg/dL (74-106)
[2024-10-23 04:23] LABS: BUN/Creatinine Ratio 33.3 (10.0-20.0)
[2024-10-23 04:40] LABS: Blood Urea Nitrogen 54 mg/dL (9-23); Chloride 109 mmol/L (98-107); Magnesium 1.6 mg/dL (1.6-2.6)
--- NOTE | 2024-10-23 07:19 | ECG ---
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
--- NOTE | 2024-10-23 12:48 | DVHPN2 ---
Subjective Patient denies any symptoms at this time Reviewed: Care Plan, H&P, Labs, Medications, Previous Orders, Radiology Changes from previous H/P or p: No Changes Eyes: No Pain, No Vision change, No Conjunctivae inflammation, No Eyelid inflammation, No Other, No Redness ENT: No Ear pain, No Ear discharge, No Nose pain, No Nose discharge, No Nose congestion, No Mouth pain, No Mouth swelling, No Throat pain, No Throat swelling, No Other Cardiovascular: No Chest Pain, No Palpitations, No Orthopnea, No Paroxysmal Noc. Dyspnea, No Edema, No Lt Headedness, No Other Respiratory: No Cough, No Dry, No Shortness of breath, No SOB with excertion, No Wheezing, No Hemoptysis, No Pleuritic Pain, No Sputum, No Other Gastrointestinal: No Nausea, No Vomiting, No Abdominal Pain, No Diarrhea, No Constipation, No Melena, No Hematochezia, No Other Genitourinary: No Dysuria, No Frequency, No Incontinence; Hematuria; No Retention; Other (Dark colored urine, Hutchinson catheter in place.) Musculoskeletal: No other, No neck pain, No shoulder pain, No arm pain, No back pain, No hand pain, No leg pain, No foot pain Skin: No Rash, No Lesions, No Jaundice, No Bruising, No Other Objective Vitals Vital Signs Date Time Temp Pulse Resp B/P (MAP) Pulse Ox O2 Delivery O2 Flow Rate FiO2 10/23/24 11:31 16 97 Nasal Cannula* 4 36 10/23/24 11:31 82 10/23/24 10:30 96/55 (69) 10/23/24 08:00 97.0 97.0 Intake/Output Intake and Output 10/23/24 07:00 Intake Total 431.25 ml Output Total 3001 ml Balance -2569.75 ml Intake Oral 300 ml IV Total 131.25 ml Output Urine Total 3000 ml Stool Total 1 ml # Bowel Movements 2 General Appearance: Alert, Oriented X3, Cooperative HEENT: Atraumatic, PERRLA, EOMI, Mucous membr. moist/pink Neck: Supple Lungs: Clear to auscultation, Normal air movement Cardiovascular: Regular rate, Normal S1, Normal S2, No murmurs, Gallops, Rubs Abdomen: Normal bowel sounds, Soft, No tenderness Neuro: Cranial nerves 3-12 NL Skin: Dry, Intact Psych/Mental Status: Other (Alert awake) Medications Current Medications Medications Dose Ordered Sig/Leonard Route Start Time Stop Time Status Last Admin Dose Admin Atorvastatin Calcium 20 mg HS PO 10/21/24 22:00 10/22/24 22:49 20 MG Multivit/Ca Carb/ B Cmplx/FA/Prenat 1 tab DAILY PO 10/21/24 10:00 10/23/24 07:58 1 TAB Famotidine 20 mg DAILY IV 10/21/24 10:00 10/23/24 07:58 20 MG Albuterol 2.5 mg Q4HPRN PRN NEB 10/20/24 23:30 10/22/24 08:30 2.5 MG Sodium Chloride 10 ml Q8HR IV 10/21/24 06:00 10/23/24 10:52 10 ML Ondansetron HCl 4 mg Q4HP PRN IV 10/20/24 23:30 Docusate Sodium 100 mg BIDPRN PRN PO 10/20/24 23:30 Acetaminophen 650 mg Q6HP PRN PO 10/20/24 23:30 Nitroglycerin 0.4 mg Q5MINP PRN SL 10/20/24 23:30 Morphine Sulfate 2 mg Q30M PRN IV 10/20/24 23:30 Apixaban 5 mg BID PO 10/21/24 10:00 10/23/24 07:58 5 MG Midodrine 10 mg TID@0600,1200,1800 PO 10/21/24 06:00 10/23/24 10:51 10 MG Norepinephrine Bitartrate 250 ml @ 3.75 mls/hr Q24H IV 10/21/24 04:15 10/22/24 06:08 18.75 MLS/HR Piperacillin Sod/ Tazobactam Sod 100 ml @ 25 mls/hr Q12HR IV 10/21/24 22:00 10/23/24 07:58 25 MLS/HR Sodium Chloride 10 ml QSHIFT@10,22 IV 10/21/24 22:00 10/23/24 07:58 10 ML Oxycodone HCl 20 mg TIDPRN PRN PO 10/22/24 13:30 10/23/24 06:25 20 MG Laboratory Results Laboratory Tests 10/23/24 03:00 Chemistry Test 10/23/24 03:00 Calcium Level 9.4 mg/dL (8.7-10.4) Magnesium Level 1.6 mg/dL (1.6-2.6) Phosphorus Level 2.5 mg/dL (2.4-5.1) Urinalysis Test 10/20/24 23:30 10/21/24 12:37 Urine Color Colorless (Yellow) Urine Clarity Clear (Clear) Urine pH 5.0 (5.0-9.0) Urine Specific [place] 1.009 (1.001-1.035) Urine Protein Negative (Negative) Urine Ketones Negative (Negative) Urine Blood 3+ /uL (Negative) H Urine Nitrite Negative (Negative) Urine Bilirubin Negative (Negative) Urine Urobilinogen Normal mg/dL (Negative) Urine Leukocyte Esterase Trace /uL (Negative) Urine RBC 91 /hpf (0 - 4) Urine Microscopic WBC 16 /HPF (0-5) H Urine Squamous Epithelial Cells None seen /hpf (<5) Urine Bacteria Few /hpf (None Seen) H Urine Yeast (Budding) Few /hpf (None Seen) Urine Glucose Normal mg/dL (Normal) Urine Creatinine 25.46 mg/dL (30.0-125.0) L Urine Sodium 84 mmol/L (40-220) Microbiology Microbiology Date/Time Source Procedure Growth Status 10/22/24 02:45 Urine - [place] Urine Culture - Preliminary Resulted 10/21/24 15:47 Blood Blood Culture - Preliminary NO GROWTH AFTER 24 HOURS OF INCUBATION. Resulted 10/21/24 15:44 Nose MRSA Screen - Final Complete Labs and/or images reviewed: Labs reviewed by me, Image(s) reviewed by me Assessment/Plan Assessment/Plan Impression: -probable hypovolemic shock -acute kidney injury, vasomotor nephropathy -complicated cystitis -ER metabolic encephalopathy -acute on chronic diastolic heart failure, half Azul -obesity -deconditioning with bed-bound status -dyslipidemia Plan: -patient weaned off norepinephrine. Transferred to telemetry floor -nephrology consultation: Recommendations reviewed continue IV hydration -deescalate antibiotics: Rocephin, add Diflucan for noted yeast in repeat urine culture -pain management -PUD prophylaxis -continue anticoagulation -repeat labs in a.m. -long discussion made with the patient and has been who was bedside regarding discharge planning. Critical care time spent with patient discussing and formulating plan of care: 90 minutes. This does not include time spent performing procedures. This medical document was created using an electronic medical record system with [employer] computerized dictation system. Although this document has been carefully reviewed, there may still be some phonetic and typographical errors. These areas are purely typographical due to imperfections of the software programs, and do not reflect any compromise in the patient's medical care. Plan discussed with: Patient, Other (RN) Date of Service: Oct 23, 2024 Billing Provider: KLAUS ZAMORANO NP Common Visit Codes: [id number] CARE-EACH +30MIN KLAUS ZAMORANO NP Oct 23, 2024 12:48
[2024-10-23] MEDS: FLUCONAZOLE 100 MG TAB PO SCH (13:02)
[2024-10-23] MEDS: cefTRIAXone 1GM/50ML D5W 50 ML IV SCH (13:02)
--- NOTE | 2024-10-23 18:28 | DVHPN2 ---
Progress Note Date Seen: Oct 23, 2024 Medical Necessity Reason Pt with a Central, PICC or Fol: Yes The following are medically ne: Swartz Catheter Reason for swartz catheter: Strict I&O Subjective Patient reports: No new complaints, Feels better Review of Systems: Deferred Objective vital signs Vital Sign Date Time Temp Pulse Resp B/P (MAP) Pulse Ox O2 Delivery O2 Flow Rate FiO2 10/23/24 18:00 88 17 90/63 (72) 98 10/23/24 17:36 Nasal Cannula* 4 36 10/23/24 16:15 97.4 97.4 Total Intake and Output 10/22/24 10/22/24 10/23/24 15:00 23:00 07:00 Intake Total 123.75 ml 200 ml 107.50 ml Output Total 1751 ml 1250 ml Balance 123.75 ml -1551 ml -1142.50 ml medications Current Medications Medications Dose Ordered Sig/Leonard Route Start Time Stop Time Status Last Admin Dose Admin Atorvastatin Calcium 20 mg HS PO 10/21/24 22:00 10/22/24 22:49 20 MG Multivit/Ca Carb/ B Cmplx/FA/Prenat 1 tab DAILY PO 10/21/24 10:00 10/23/24 07:58 1 TAB Famotidine 20 mg DAILY IV 10/21/24 10:00 10/23/24 07:58 20 MG Albuterol 2.5 mg Q4HPRN PRN NEB 10/20/24 23:30 10/22/24 08:30 2.5 MG Sodium Chloride 10 ml Q8HR IV 10/21/24 06:00 10/23/24 10:52 10 ML Ondansetron HCl 4 mg Q4HP PRN IV 10/20/24 23:30 Docusate Sodium 100 mg BIDPRN PRN PO 10/20/24 23:30 Acetaminophen 650 mg Q6HP PRN PO 10/20/24 23:30 Nitroglycerin 0.4 mg Q5MINP PRN SL 10/20/24 23:30 Morphine Sulfate 2 mg Q30M PRN IV 10/20/24 23:30 Apixaban 5 mg BID PO 10/21/24 10:00 10/23/24 07:58 5 MG Midodrine 10 mg TID@0600,1200,1800 PO 10/21/24 06:00 10/23/24 17:23 10 MG Norepinephrine Bitartrate 250 ml @ 3.75 mls/hr Q24H IV 10/21/24 04:15 10/22/24 06:08 18.75 MLS/HR Sodium Chloride 10 ml QSHIFT@10,22 IV 10/21/24 22:00 10/23/24 07:58 10 ML Oxycodone HCl 20 mg TIDPRN PRN PO 10/22/24 13:30 10/23/24 14:55 20 MG Fluconazole 100 mg DAILY PO 10/23/24 12:55 10/23/24 13:02 100 MG Ceftriaxone Sodium 50 ml @ 100 mls/hr DAILY@09 IV 10/23/24 12:55 10/23/24 13:02 100 MLS/HR Examination: GENERAL:Normal, HEENT:Normal, NECK:Normal, LUNGS:Abnormal, CVS:Normal, ABDOMEN:Normal, MSK:Abnormal, SKIN:Abnormal, NEURO:Normal, :Normal laboratory and microbiology Laboratory Tests 10/23/24 03:00 Test 10/23/24 03:00 Range/Units Serum Glucose 83 74-106 mg/dL Microbiology Date/Time Source Procedure Growth Status 10/22/24 02:45 Urine - [place] Urine Culture - Preliminary Resulted 10/21/24 15:47 Blood Blood Culture - Preliminary NO GROWTH AFTER 48 HOURS OF INCUBATION. Resulted 10/21/24 15:44 Nose MRSA Screen - Final Complete Problem List/Assessment/Plan Problem List/Assessment/Plan 1) Hemodynamically mediated JULIANNA/VMN, prerenal state 2) CKD stage 3A 3) hyperkalemia possibly in setting of acute kidney injury, concurrent therapy with BEBO inhibition as outpatient with resultant hypo renin, hypoaldo state 4) toxic metabolic encephalopathy 5) history of hypertension recs slightly better renal function uop better Plan discussed with: Patient, Spouse Dietary Evaluation Review Comments: 1) Initiate Nepro bid 2) If PO intake < 50%, consider EN/TPN to meet at least 75% of estimated needs 3) Refer to outpatient RD for weight management 4) Follow-up with cardiology, pulmonology, and nephrology 5) Continue to monitor I&O, labs, and skin integrity Expected Outcomes/Goals: 1) appetite and labs to improve 2) wounds to improve 3) f/u in 2-3 days CHIQUIS HUTCHINS MD 7, 2025 18:28
--- NOTE | 2024-10-23 20:22 | DVHPN2 ---
Subjective The patient is seen and examined at bedside. More alert awake today. Reviewed: Care Plan, H&P, Labs, Medications, Previous Orders, Radiology Changes from previous H/P or p: No Changes Eyes: No Pain, No Vision change, No Conjunctivae inflammation, No Eyelid inflammation, No Other, No Redness ENT: No Ear pain, No Ear discharge, No Nose pain, No Nose discharge, No Nose congestion, No Mouth pain, No Mouth swelling, No Throat pain, No Throat swelling, No Other Cardiovascular: No Chest Pain, No Palpitations, No Orthopnea, No Paroxysmal Noc. Dyspnea, No Edema, No Lt Headedness, No Other Respiratory: No Cough, No Dry, No Shortness of breath, No SOB with excertion, No Wheezing, No Hemoptysis, No Pleuritic Pain, No Sputum, No Other Gastrointestinal: No Nausea, No Vomiting, No Abdominal Pain, No Diarrhea, No Constipation, No Melena, No Hematochezia, No Other Genitourinary: No Dysuria, No Frequency, No Incontinence; Hematuria; No Retention; Other (Dark colored urine, Hutchinson catheter in place.) Musculoskeletal: No other, No neck pain, No shoulder pain, No arm pain, No back pain, No hand pain, No leg pain, No foot pain Skin: No Rash, No Lesions, No Jaundice, No Bruising, No Other Objective Vitals Vital Signs Date Time Temp Pulse Resp B/P (MAP) Pulse Ox O2 Delivery O2 Flow Rate FiO2 10/23/24 18:45 100 17 88/68 (75) 96 10/23/24 17:36 Nasal Cannula* 4 36 10/23/24 16:15 97.4 97.4 Intake/Output Intake and Output 10/23/24 07:00 Intake Total 431.25 ml Output Total 3001 ml Balance -2569.75 ml Intake Oral 300 ml IV Total 131.25 ml Output Urine Total 3000 ml Stool Total 1 ml # Bowel Movements 2 General Appearance: Alert, Oriented X3, Cooperative HEENT: Atraumatic, PERRLA, EOMI, Mucous membr. moist/pink Neck: Supple Lungs: Clear to auscultation, Normal air movement Cardiovascular: Regular rate, Normal S1, Normal S2, No murmurs, Gallops, Rubs Abdomen: Normal bowel sounds, Soft, No tenderness Neuro: Cranial nerves 3-12 NL Skin: Dry, Intact Psych/Mental Status: Other (Alert awake) Medications Current Medications Medications Dose Ordered Sig/Leonard Route Start Time Stop Time Status Last Admin Dose Admin Atorvastatin Calcium 20 mg HS PO 10/21/24 22:00 10/22/24 22:49 20 MG Multivit/Ca Carb/ B Cmplx/FA/Prenat 1 tab DAILY PO 10/21/24 10:00 10/23/24 07:58 1 TAB Famotidine 20 mg DAILY IV 10/21/24 10:00 10/23/24 07:58 20 MG Albuterol 2.5 mg Q4HPRN PRN NEB 10/20/24 23:30 10/22/24 08:30 2.5 MG Sodium Chloride 10 ml Q8HR IV 10/21/24 06:00 10/23/24 10:52 10 ML Ondansetron HCl 4 mg Q4HP PRN IV 10/20/24 23:30 Docusate Sodium 100 mg BIDPRN PRN PO 10/20/24 23:30 Acetaminophen 650 mg Q6HP PRN PO 10/20/24 23:30 Nitroglycerin 0.4 mg Q5MINP PRN SL 10/20/24 23:30 Morphine Sulfate 2 mg Q30M PRN IV 10/20/24 23:30 Apixaban 5 mg BID PO 10/21/24 10:00 10/23/24 07:58 5 MG Midodrine 10 mg TID@0600,1200,1800 PO 10/21/24 06:00 10/23/24 17:23 10 MG Norepinephrine Bitartrate 250 ml @ 3.75 mls/hr Q24H IV 10/21/24 04:15 10/22/24 06:08 18.75 MLS/HR Sodium Chloride 10 ml QSHIFT@10,22 IV 10/21/24 22:00 10/23/24 07:58 10 ML Oxycodone HCl 20 mg TIDPRN PRN PO 10/22/24 13:30 10/23/24 14:55 20 MG Fluconazole 100 mg DAILY PO 10/23/24 12:55 10/23/24 13:02 100 MG Ceftriaxone Sodium 50 ml @ 100 mls/hr DAILY@09 IV 10/23/24 12:55 10/23/24 13:02 100 MLS/HR Laboratory Results Laboratory Tests 10/23/24 03:00 Chemistry Test 10/23/24 03:00 Calcium Level 9.4 mg/dL (8.7-10.4) Magnesium Level 1.6 mg/dL (1.6-2.6) Phosphorus Level 2.5 mg/dL (2.4-5.1) Urinalysis Test 10/20/24 23:30 10/21/24 12:37 Urine Color Colorless (Yellow) Urine Clarity Clear (Clear) Urine pH 5.0 (5.0-9.0) Urine Specific [place] 1.009 (1.001-1.035) Urine Protein Negative (Negative) Urine Ketones Negative (Negative) Urine Blood 3+ /uL (Negative) H Urine Nitrite Negative (Negative) Urine Bilirubin Negative (Negative) Urine Urobilinogen Normal mg/dL (Negative) Urine Leukocyte Esterase Trace /uL (Negative) Urine RBC 91 /hpf (0 - 4) Urine Microscopic WBC 16 /HPF (0-5) H Urine Squamous Epithelial Cells None seen /hpf (<5) Urine Bacteria Few /hpf (None Seen) H Urine Yeast (Budding) Few /hpf (None Seen) Urine Glucose Normal mg/dL (Normal) Urine Creatinine 25.46 mg/dL (30.0-125.0) L Urine Sodium 84 mmol/L (40-220) Microbiology Microbiology Date/Time Source Procedure Growth Status 10/22/24 02:45 Urine - [place] Urine Culture - Preliminary Resulted 10/21/24 15:47 Blood Blood Culture - Preliminary NO GROWTH AFTER 48 HOURS OF INCUBATION. Resulted 10/21/24 15:44 Nose MRSA Screen - Final Complete Labs and/or images reviewed: Labs reviewed by me Assessment/Plan Assessment/Plan Sepsis Hypotension Acute respiratory failure End stage renal disease Hyperkalemia Pancreatitis Generalized weakness Acute exacerbation of CHF (congestive heart failure) Continuing current management. Continuing with vasopressor, Levophed. Appreciate Nephrology input. Patient received leukemia. I will consulted pulmonology We will get a stat chest x-ray and also stat ABG Continuing to keep NPO We will monitor lipase Hemodialysis per schedule We will start the patient on IV antibiotic with cefepime. We will follow up with culture. Head CT without contrast to rule out CVA Critical care spent for this case is 37 minute excluding procedure This medical document was created using an electronic medical record system with [employer] direct computerized dictation system. Although this document has been carefully reviewed, there may still be some phonetic and typographical errors. These areas are purely typographical due to imperfections of the software programs, and do not reflect any compromise in the patient's medical care. Plan discussed with: Patient Date of Service: Oct 23, 2024 Billing Provider: DEN HUNTER MD Common Visit Codes: [id number] CARE 30-74 MIN DEN HUNTER MD Oct 23, 2024 20:21
--- NOTE | 2024-10-23 23:47 | DVHPN2 ---
Progress Note - Dictate Date Seen: Oct 23, 2024 Medical Necessity Reason Pt with a Central, PICC or Fol: Yes The following are medically ne: Swartz Catheter Reason for sawrtz catheter: Strict I&O Subjective Patient seen and examined at bedside. Remains on supplemental oxygen Overnight events reviewed. [facility] vital signs Vital Sign Date Time Temp Pulse Resp B/P (MAP) Pulse Ox O2 Delivery O2 Flow Rate FiO2 10/23/24 22:05 76 10/23/24 22:05 16 96 Nasal Cannula* 4 36 10/23/24 21:16 74/50 (58) 10/23/24 20:00 98.5 98.5 Total Intake and Output 10/22/24 10/22/24 10/23/24 15:00 23:00 07:00 Intake Total 123.75 ml 200 ml 107.50 ml Output Total 1751 ml 1250 ml Balance 123.75 ml -1551 ml -1142.50 ml medications Current Medications Medications Dose Ordered Sig/Leonard Route Start Time Stop Time Status Last Admin Dose Admin Atorvastatin Calcium 20 mg HS PO 10/21/24 22:00 10/23/24 22:53 20 MG Multivit/Ca Carb/ B Cmplx/FA/Prenat 1 tab DAILY PO 10/21/24 10:00 10/23/24 07:58 1 TAB Famotidine 20 mg DAILY IV 10/21/24 10:00 10/23/24 07:58 20 MG Albuterol 2.5 mg Q4HPRN PRN NEB 10/20/24 23:30 10/22/24 08:30 2.5 MG Sodium Chloride 10 ml Q8HR IV 10/21/24 06:00 10/23/24 22:53 10 ML Ondansetron HCl 4 mg Q4HP PRN IV 10/20/24 23:30 Docusate Sodium 100 mg BIDPRN PRN PO 10/20/24 23:30 Acetaminophen 650 mg Q6HP PRN PO 10/20/24 23:30 Nitroglycerin 0.4 mg Q5MINP PRN SL 10/20/24 23:30 Morphine Sulfate 2 mg Q30M PRN IV 10/20/24 23:30 Apixaban 5 mg BID PO 10/21/24 10:00 10/23/24 22:52 5 MG Midodrine 10 mg TID@0600,1200,1800 PO 10/21/24 06:00 10/23/24 17:23 10 MG Norepinephrine Bitartrate 250 ml @ 3.75 mls/hr Q24H IV 10/21/24 04:15 10/22/24 06:08 18.75 MLS/HR Sodium Chloride 10 ml QSHIFT@10,22 IV 10/21/24 22:00 10/23/24 22:00 10 ML Oxycodone HCl 20 mg TIDPRN PRN PO 10/22/24 13:30 10/23/24 22:52 20 MG Fluconazole 100 mg DAILY PO 10/23/24 12:55 10/23/24 13:02 100 MG Ceftriaxone Sodium 50 ml @ 100 mls/hr DAILY@09 IV 10/23/24 12:55 10/23/24 13:02 100 MLS/HR objective Gen.: Patient lying in bed in no apparent distress. On supplemental oxygen. Head: Normocephalic, atraumatic. Eyes: EOMI/PERRLA. Ears: Normal hearing. Normal anatomy. Neck/trachea: Trachea midline, supple. Nose: Normal external anatomy. Mouth: Moist mucous membranes. Chest: Decreased air entry bilaterally. No wheezing or rhonchi. Cardiovascular: Positive S1, positive S2. Regular rate and rhythm. Abdomen: Positive bowel sounds in all 4 quadrants. Soft, non-tender, non- distended. : Deferred. Rectal: Deferred. Skin: Warm, dry. Intact. Extremities: 2+ radial pulses bilaterally. No lower extremity edema. Neuro: Awake, alert, oriented x3. No gross motor or sensory deficits. Cranial nerves II through XII intact. Gait not assessed. laboratory and microbiology Laboratory Tests 10/23/24 03:00 Test 10/23/24 03:00 Range/Units Serum Glucose 83 74-106 mg/dL Assessment/Plan Impression: Acute hypoxic respiratory failure Dependence on supplemental oxygen Urinary tract infection Septic shock Cellulitis Acute metabolic encephalopathy Super morbid obesity, BMI 54.7 Events: Remains on supplemental oxygen, 4 LPM NC Taper O2 as tolerated Off Levophed, monitor hemodynamics. Continue antibiotics - Zosyn, ceftriaxone Continue antifungal Incentive spirometry Sildenafil for pulmonary hypertension - on hold due to hypotension. On Eliquis Midodrine for blood pressure support Pain control - on home pain medication regimen Oxycodone q.8 hours PRN Avoid oversedation Monitor renal function. Monitor electrolytes. Supplement as necessary. Potassium at goal Patient is stable for downgrade from the pulmonary standpoint. Labs and imaging reviewed. Rest of plan as noted below. Plan: Supplemental oxygen Titrate to keep O2 sats above 92%. Mentation improving. Monitor closely. Pressors if necessary for hemodynamic support Titrate to keep MAP above 65 mmHg/SBP above 90 mmHg. Continue antibiotics Follow up cultures Eliquis BID Monitor renal function. Monitor electrolytes. Supplement as necessary. Monitor ins and outs. Diet and lifestyle modifications for weight reduction Obesity complicates all care DVT prophylaxis. Prognosis: Poor given patient's multiple co-morbidities. Rest of plan per hospitalist and other consultants. Thank you Dr. Nava for allowing me to participate in this patient's care. Further recommendations will depend on the patient's clinical course. Please do not hesitate to contact me if you have any questions or concerns. This medical document was created using an electronic medical record system with [employer] dictation system. Although these documentations are being carefully reviewed, there may still be some phonetic and typographical changes. The errors are purely typographical, due to imperfection on the software program, and do not reflect any compromise in the patient's medical care. Dietary Evaluation Review Comments: 1) Initiate Nepro bid 2) If PO intake < 50%, consider EN/TPN to meet at least 75% of estimated needs 3) Refer to outpatient RD for weight management 4) Follow-up with cardiology, pulmonology, and nephrology 5) Continue to monitor I&O, labs, and skin integrity Expected Outcomes/Goals: 1) appetite and labs to improve 2) wounds to improve 3) f/u in 2-3 days Plan discussed with: Patient, Other (TAMICA Dubon) CALEB FLOR MD Oct 23, 2024 23:47
[2024-10-24] VITALS (58 sets, daily range): BP systolic 52–122; BP diastolic 20–80; PULSE 65–118; RESP 10–29; TEMP 97.8–98.6; O2SAT 90–100
--- NOTE | 2024-10-24 10:06 | DVHPN2 ---
Subjective Patient denies any symptoms at this time Reviewed: Care Plan, H&P, Labs, Medications, Previous Orders, Radiology Changes from previous H/P or p: No Changes Eyes: No Pain, No Vision change, No Conjunctivae inflammation, No Eyelid inflammation, No Other, No Redness ENT: No Ear pain, No Ear discharge, No Nose pain, No Nose discharge, No Nose congestion, No Mouth pain, No Mouth swelling, No Throat pain, No Throat swelling, No Other Cardiovascular: No Chest Pain, No Palpitations, No Orthopnea, No Paroxysmal Noc. Dyspnea, No Edema, No Lt Headedness, No Other Respiratory: No Cough, No Dry, No Shortness of breath, No SOB with excertion, No Wheezing, No Hemoptysis, No Pleuritic Pain, No Sputum, No Other Gastrointestinal: No Nausea, No Vomiting, No Abdominal Pain, No Diarrhea, No Constipation, No Melena, No Hematochezia, No Other Genitourinary: No Dysuria, No Frequency, No Incontinence; Hematuria; No Retention; Other (Dark colored urine, Hutchinson catheter in place.) Musculoskeletal: No other, No neck pain, No shoulder pain, No arm pain, No back pain, No hand pain, No leg pain, No foot pain Skin: No Rash, No Lesions, No Jaundice, No Bruising, No Other Objective Vitals Vital Signs Date Time Temp Pulse Resp B/P (MAP) Pulse Ox O2 Delivery O2 Flow Rate FiO2 10/24/24 08:00 77 10/24/24 08:00 13 97 Nasal Cannula* 4 36 10/24/24 06:45 112/58 (76) 10/24/24 04:00 97.9 97.9 Intake/Output Intake and Output 10/24/24 07:00 Intake Total 750 ml Output Total 1650 ml Balance -900 ml Intake Oral 750 ml Output Urine Total 1650 ml # Bowel Movements 1 General Appearance: Alert, Oriented X3, Cooperative, No acute distress HEENT: Atraumatic, PERRLA, EOMI, Mucous membr. moist/pink Neck: Supple Lungs: Clear to auscultation, Normal air movement Cardiovascular: Regular rate, Normal S1, Normal S2, No murmurs, Gallops, Rubs Abdomen: Normal bowel sounds, Soft, No tenderness Neuro: Normal gait, Normal speech, Cranial nerves 3-12 NL Skin: Dry, Intact Psych/Mental Status: Other (Alert awake) Medications Current Medications Medications Dose Ordered Sig/Leonard Route Start Time Stop Time Status Last Admin Dose Admin Atorvastatin Calcium 20 mg HS PO 10/21/24 22:00 10/23/24 22:53 20 MG Multivit/Ca Carb/ B Cmplx/FA/Prenat 1 tab DAILY PO 10/21/24 10:00 10/24/24 09:43 1 TAB Famotidine 20 mg DAILY IV 10/21/24 10:00 10/24/24 09:43 20 MG Albuterol 2.5 mg Q4HPRN PRN NEB 10/20/24 23:30 10/22/24 08:30 2.5 MG Sodium Chloride 10 ml Q8HR IV 10/21/24 06:00 10/24/24 06:33 10 ML Ondansetron HCl 4 mg Q4HP PRN IV 10/20/24 23:30 Docusate Sodium 100 mg BIDPRN PRN PO 10/20/24 23:30 Acetaminophen 650 mg Q6HP PRN PO 10/20/24 23:30 Nitroglycerin 0.4 mg Q5MINP PRN SL 10/20/24 23:30 Morphine Sulfate 2 mg Q30M PRN IV 10/20/24 23:30 Apixaban 5 mg BID PO 10/21/24 10:00 10/24/24 09:44 5 MG Midodrine 10 mg TID@0600,1200,1800 PO 10/21/24 06:00 10/24/24 06:29 10 MG Norepinephrine Bitartrate 250 ml @ 3.75 mls/hr Q24H IV 10/21/24 04:15 10/22/24 06:08 18.75 MLS/HR Sodium Chloride 10 ml QSHIFT@10,22 IV 10/21/24 22:00 10/24/24 09:43 10 ML Oxycodone HCl 20 mg TIDPRN PRN PO 10/22/24 13:30 10/24/24 06:30 20 MG Fluconazole 100 mg DAILY PO 10/23/24 12:55 10/24/24 09:44 100 MG Ceftriaxone Sodium 50 ml @ 100 mls/hr DAILY@09 IV 10/23/24 12:55 10/24/24 09:37 100 MLS/HR Laboratory Results Laboratory Tests 10/23/24 03:00 Urinalysis Test 10/20/24 23:30 10/21/24 12:37 Urine Color Colorless (Yellow) Urine Clarity Clear (Clear) Urine pH 5.0 (5.0-9.0) Urine Specific [place] 1.009 (1.001-1.035) Urine Protein Negative (Negative) Urine Ketones Negative (Negative) Urine Blood 3+ /uL (Negative) H Urine Nitrite Negative (Negative) Urine Bilirubin Negative (Negative) Urine Urobilinogen Normal mg/dL (Negative) Urine Leukocyte Esterase Trace /uL (Negative) Urine RBC 91 /hpf (0 - 4) Urine Microscopic WBC 16 /HPF (0-5) H Urine Squamous Epithelial Cells None seen /hpf (<5) Urine Bacteria Few /hpf (None Seen) H Urine Yeast (Budding) Few /hpf (None Seen) Urine Glucose Normal mg/dL (Normal) Urine Creatinine 25.46 mg/dL (30.0-125.0) L Urine Sodium 84 mmol/L (40-220) Microbiology Microbiology Date/Time Source Procedure Growth Status 10/22/24 02:45 Urine - [place] Urine Culture - Preliminary Resulted 10/21/24 15:47 Blood Blood Culture - Preliminary NO GROWTH AFTER 48 HOURS OF INCUBATION. Resulted 10/21/24 15:44 Nose MRSA Screen - Final Complete Labs and/or images reviewed: Labs reviewed by me, Image(s) reviewed by me Assessment/Plan Assessment/Plan Impression: -probable hypovolemic shock -acute kidney injury, vasomotor nephropathy -complicated cystitis -ER metabolic encephalopathy -acute on chronic diastolic heart failure, half Azul -obesity -deconditioning with bed-bound status -dyslipidemia Plan: Events: Events overnight. -continue Diflucan and Rocephin -physical therapy -pain management -PUD prophylaxis -continue anticoagulation -repeat labs in a.m. -long discussion made with the patient and has been who was bedside regarding discharge planning. Total time spent with patient discussing and formulating plan of care: 35 minutes. This medical document was created using an electronic medical record system with [employer] system. Although this document has been carefully reviewed, there may still be some phonetic and typographical errors. These areas are purely typographical due to imperfections of the software programs, and do not reflect any compromise in the patient's medical care. Plan discussed with: Patient, Other (RN) My Orders Orders - KLAUS ZAMORANO NP Procedure Category Date Status Time Transfer Orders XFER 10/23/24 Transmitted 12:41 Pt Request For Service PT 10/23/24 Logged 12:41 Ceftriaxone 1gm/50ml PHA 10/23/24 In Process D5w (Rocephin) 12:55 Fluconazole Tablet PHA 10/23/24 In Process (Diflucan Tablet) 12:55 Basic Metabolic Panel LAB 10/24/24 Logged 08:27 Date of Service: Oct 24, 2024 Billing Provider: KLAUS ZAMORANO NP Common Visit Codes: [id number] INP/OBS CARE(HIGH) KLAUS ZAMORANO NP Oct 24, 2024 10:06
[2024-10-24 10:41] LABS: Potassium 3.7 mmol/L (3.5-5.1); Sodium 143 mmol/L (136-145)
[2024-10-24 10:42] LABS: Anion Gap 9 (5-15); Carbon Dioxide 26 mmol/L (20-31)
[2024-10-24 10:43] LABS: Calcium 9.7 mg/dL (8.7-10.4)
[2024-10-24 10:46] LABS: Chloride 108 mmol/L (98-107)
[2024-10-24 10:47] LABS: BUN/Creatinine Ratio 24.3 (10.0-20.0); Glucose 97 mg/dL (74-106)
[2024-10-24 10:49] LABS: Blood Urea Nitrogen 28 mg/dL (9-23)
--- NOTE | 2024-10-24 19:27 | DVHPN2 ---
Progress Note Date Seen: Oct 24, 2024 Medical Necessity Reason Pt with a Central, PICC or Fol: Yes The following are medically ne: Swartz Catheter Reason for swartz catheter: Strict I&O Subjective Patient reports: No new complaints, Feels better (worried as her fell) Review of Systems: Deferred Objective vital signs Vital Sign Date Time Temp Pulse Resp B/P (MAP) Pulse Ox O2 Delivery O2 Flow Rate FiO2 10/24/24 18:00 85 13 93/74 (80) 96 10/24/24 18:00 Nasal Cannula* 4 36 10/24/24 16:00 98.3 98.3 Total Intake and Output 10/23/24 10/23/24 10/24/24 15:00 23:00 07:00 Intake Total 500 ml 250 ml Output Total 850 ml 800 ml Balance -350 ml -550 ml medications Current Medications Medications Dose Ordered Sig/Leonard Route Start Time Stop Time Status Last Admin Dose Admin Atorvastatin Calcium 20 mg HS PO 10/21/24 22:00 10/23/24 22:53 20 MG Multivit/Ca Carb/ B Cmplx/FA/Prenat 1 tab DAILY PO 10/21/24 10:00 10/24/24 09:43 1 TAB Famotidine 20 mg DAILY IV 10/21/24 10:00 10/24/24 09:43 20 MG Albuterol 2.5 mg Q4HPRN PRN NEB 10/20/24 23:30 10/22/24 08:30 2.5 MG Ondansetron HCl 4 mg Q4HP PRN IV 10/20/24 23:30 Docusate Sodium 100 mg BIDPRN PRN PO 10/20/24 23:30 Acetaminophen 650 mg Q6HP PRN PO 10/20/24 23:30 Nitroglycerin 0.4 mg Q5MINP PRN SL 10/20/24 23:30 Morphine Sulfate 2 mg Q30M PRN IV 10/20/24 23:30 Apixaban 5 mg BID PO 10/21/24 10:00 10/24/24 09:44 5 MG Midodrine 10 mg TID@0600,1200,1800 PO 10/21/24 06:00 10/24/24 18:12 10 MG Norepinephrine Bitartrate 250 ml @ 3.75 mls/hr Q24H IV 10/21/24 04:15 10/22/24 06:08 18.75 MLS/HR Sodium Chloride 10 ml QSHIFT@10,22 IV 10/21/24 22:00 10/24/24 09:43 10 ML Oxycodone HCl 20 mg TIDPRN PRN PO 10/22/24 13:30 10/24/24 18:17 20 MG Fluconazole 100 mg DAILY PO 10/23/24 12:55 10/24/24 09:44 100 MG Ceftriaxone Sodium 50 ml @ 100 mls/hr DAILY@09 IV 10/23/24 12:55 10/24/24 09:37 100 MLS/HR Examination: GENERAL:Normal, LUNGS:Abnormal, ABDOMEN:Normal, MSK:Normal, NEURO:Normal, :Normal laboratory and microbiology Laboratory Tests 10/24/24 09:55 10/23/24 03:00 Test 10/24/24 09:55 Range/Units Serum Glucose 97 74-106 mg/dL Microbiology Date/Time Source Procedure Growth Status 10/22/24 02:45 Urine - [place] Urine Culture - Final Enterococcus faecalis Complete 10/21/24 15:47 Blood Blood Culture - Preliminary NO GROWTH AFTER 72 HOURS OF INCUBATION. Resulted 10/21/24 15:44 Nose MRSA Screen - Final Complete Problem List/Assessment/Plan Problem List/Assessment/Plan 1) Hemodynamically mediated JULIANNA/VMN, prerenal state 2) CKD stage 3A 3) hyperkalemia possibly in setting of acute kidney injury, concurrent therapy with BEBO inhibition as outpatient with resultant hypo renin, hypoaldo state 4) toxic metabolic encephalopathy 5) history of hypertension recs better renal function uop better off pressors Plan discussed with: Patient, Other Dietary Evaluation Review Comments: 1) Initiate Nepro bid 2) If PO intake < 50%, consider EN/TPN to meet at least 75% of estimated needs 3) Refer to outpatient RD for weight management 4) Follow-up with cardiology, pulmonology, and nephrology 5) Continue to monitor I&O, labs, and skin integrity Expected Outcomes/Goals: 1) appetite and labs to improve 2) wounds to improve 3) f/u in 2-3 days CHIQUIS HUTCHINS MD Oct 24, 2024 19:27
[2024-10-24] MEDS: ACETAMINOPHEN 325 MG TAB PO PRN (21:06)
[2024-10-24] MEDS ORDERED: ALBUTEROL SULF HFA 90MCG INH 200DOSE IN SCH (22:00)
[2024-10-24] MEDS ORDERED: APIXABAN 5 MG TAB PO SCH (22:00)
--- NOTE | 2024-10-24 23:00 | DVHPN2 ---
Progress Note - Dictate Date Seen: Oct 24, 2024 Medical Necessity Reason Pt with a Central, PICC or Fol: Yes The following are medically ne: Swartz Catheter Reason for swartz catheter: Strict I&O Subjective Patient seen and examined at bedside. Remains on supplemental oxygen Overnight events reviewed. [facility] vital signs Vital Sign Date Time Temp Pulse Resp B/P (MAP) Pulse Ox O2 Delivery O2 Flow Rate FiO2 10/24/24 22:25 95 Nasal Cannula* 5 40 10/24/24 21:00 113 23 91/61 (71) 10/24/24 20:00 98.6 98.6 Total Intake and Output 10/23/24 10/23/24 10/24/24 15:00 23:00 07:00 Intake Total 500 ml 250 ml Output Total 850 ml 800 ml Balance -350 ml -550 ml medications Current Medications Medications Dose Ordered Sig/Leonard Route Start Time Stop Time Status Last Admin Dose Admin Atorvastatin Calcium 20 mg HS PO 10/21/24 22:00 10/23/24 22:53 20 MG Multivit/Ca Carb/ B Cmplx/FA/Prenat 1 tab DAILY PO 10/21/24 10:00 10/24/24 09:43 1 TAB Famotidine 20 mg DAILY IV 10/21/24 10:00 10/24/24 09:43 20 MG Albuterol 2.5 mg Q4HPRN PRN NEB 10/20/24 23:30 10/22/24 08:30 2.5 MG Ondansetron HCl 4 mg Q4HP PRN IV 10/20/24 23:30 Docusate Sodium 100 mg BIDPRN PRN PO 10/20/24 23:30 Acetaminophen 650 mg Q6HP PRN PO 10/20/24 23:30 10/24/24 21:06 650 MG Nitroglycerin 0.4 mg Q5MINP PRN SL 10/20/24 23:30 Morphine Sulfate 2 mg Q30M PRN IV 10/20/24 23:30 Apixaban 5 mg BID PO 10/21/24 10:00 10/24/24 09:44 5 MG Midodrine 10 mg TID@0600,1200,1800 PO 10/21/24 06:00 10/24/24 18:12 10 MG Sodium Chloride 10 ml QSHIFT@,22 IV 10/21/24 22:00 10/24/24 09:43 10 ML Oxycodone HCl 20 mg TIDPRN PRN PO 10/22/24 13:30 10/24/24 18:17 20 MG Fluconazole 100 mg DAILY PO 10/23/24 12:55 10/24/24 09:44 100 MG Ceftriaxone Sodium 50 ml @ 100 mls/hr DAILY@09 IV 10/23/24 12:55 10/24/24 09:37 100 MLS/HR Amlodipine Besylate 5 mg DAILY PO 10/25/24 10:00 Aspirin 81 mg DAILY PO 10/25/24 10:00 Empaglifozin 10 mg DAILY PO 10/25/24 10:00 Furosemide 20 mg BID PO 10/24/24 22:00 Lisinopril 20 mg DAILY PO 10/25/24 10:00 Oxycodone HCl 20 mg BID PO 10/24/24 22:00 Trimethoprim/ Sulfamethoxazole 1 tab BID PO 10/24/24 22:00 objective Gen.: Patient lying in bed in no apparent distress. On supplemental oxygen. Head: Normocephalic, atraumatic. Eyes: EOMI/PERRLA. Ears: Normal hearing. Normal anatomy. Neck/trachea: Trachea midline, supple. Nose: Normal external anatomy. Mouth: Moist mucous membranes. Chest: Decreased air entry bilaterally. No wheezing or rhonchi. Cardiovascular: Positive S1, positive S2. Regular rate and rhythm. Abdomen: Positive bowel sounds in all 4 quadrants. Soft, non-tender, non- distended. : Deferred. Rectal: Deferred. Skin: Warm, dry. Intact. Extremities: 2+ radial pulses bilaterally. No lower extremity edema. Neuro: Awake, alert, oriented x3. No gross motor or sensory deficits. Cranial nerves II through XII intact. Gait not assessed. laboratory and microbiology Laboratory Tests 10/24/24 09:55 10/23/24 03:00 Test 10/24/24 09:55 Range/Units Serum Glucose 97 74-106 mg/dL Assessment/Plan Impression: Acute hypoxic respiratory failure Dependence on supplemental oxygen Urinary tract infection Septic shock Cellulitis Acute metabolic encephalopathy Super morbid obesity, BMI 54.7 Events: Remains on supplemental oxygen, 3 LPM NC Taper O2 as tolerated Improving O2 requirements Off pressors since 5 AM, hemodynamically stable. Continue antibiotics - ceftriaxone Continue bronchodilators Continue antifungal Incentive spirometry Sildenafil for pulmonary hypertension - on hold due to hypotension. On Eliquis Midodrine for blood pressure support Pain control - on home pain medication regimen Oxycodone q.8 hours PRN Avoid oversedation Patient is stable for downgrade from the pulmonary standpoint. Labs and imaging reviewed. Rest of plan as noted below. Plan: Supplemental oxygen Titrate to keep O2 sats above 92%. Mentation improving. Monitor closely. Pressors if necessary for hemodynamic support Titrate to keep MAP above 65 mmHg/SBP above 90 mmHg. Continue antibiotics Follow up cultures Continue bronchodilators Eliquis BID Monitor renal function. Monitor electrolytes. Supplement as necessary. Monitor ins and outs. Diet and lifestyle modifications for weight reduction Obesity complicates all care DVT prophylaxis. Prognosis: Guarded given patient's multiple co-morbidities. Rest of plan per hospitalist and other consultants. Thank you Dr. Nava for allowing me to participate in this patient's care. Further recommendations will depend on the patient's clinical course. Please do not hesitate to contact me if you have any questions or concerns. This medical document was created using an electronic medical record system with [employer] dictation system. Although these documentations are being carefully reviewed, there may still be some phonetic and typographical changes. The errors are purely typographical, due to imperfection on the software program, and do not reflect any compromise in the patient's medical care. Dietary Evaluation Review Comments: 1) Initiate Nepro bid 2) If PO intake < 50%, consider EN/TPN to meet at least 75% of estimated needs 3) Refer to outpatient RD for weight management 4) Follow-up with cardiology, pulmonology, and nephrology 5) Continue to monitor I&O, labs, and skin integrity Expected Outcomes/Goals: 1) appetite and labs to improve 2) wounds to improve 3) f/u in 2-3 days Plan discussed with: Patient, Other (TAMICA Zapata) CALEB FLOR MD Oct 24, 2024 23:00
[2024-10-24] MEDS: FUROSEMIDE 20 MG TAB PO SCH (23:12)
[2024-10-24] MEDS: SULFAMETHOX W/TRIMETH(800/160MG) DS TAB PO SCH (23:13)
[2024-10-25] VITALS (9 sets, daily range): BP systolic 107–130; BP diastolic 69–92; PULSE 67–100; RESP 13–20; TEMP 97.2–98; O2SAT 95–98
[2024-10-25] MEDS: ASPirin-EC 81 mg tab PO SCH (09:09)
[2024-10-25] MEDS: EMPAGLIFLOZIN 10 MG TAB PO SCH (09:10)
[2024-10-25] MEDS: LISINOPRIL 20 MG TAB PO SCH (09:11)
--- NOTE | 2024-10-25 14:55 | DVHPN2 ---
Subjective Patient denies any symptoms at this time Reviewed: Care Plan, H&P, Labs, Medications, Previous Orders, Radiology Changes from previous H/P or p: No Changes General: Per HPI Eyes: No Pain, No Vision change, No Conjunctivae inflammation, No Eyelid inflammation, No Other, No Redness ENT: No Ear pain, No Ear discharge, No Nose pain, No Nose discharge, No Nose congestion, No Mouth pain, No Mouth swelling, No Throat pain, No Throat swelling, No Other Cardiovascular: No Chest Pain, No Palpitations, No Orthopnea, No Paroxysmal Noc. Dyspnea, No Edema, No Lt Headedness, No Other Respiratory: No Cough, No Dry, No Shortness of breath, No SOB with excertion, No Wheezing, No Hemoptysis, No Pleuritic Pain, No Sputum, No Other Gastrointestinal: No Nausea, No Vomiting, No Abdominal Pain, No Diarrhea, No Constipation, No Melena, No Hematochezia, No Other Genitourinary: No Dysuria, No Frequency, No Incontinence; Hematuria; No Retention; Other (Dark colored urine, Hutchinson catheter in place.) Musculoskeletal: No other, No neck pain, No shoulder pain, No arm pain, No back pain, No hand pain, No leg pain, No foot pain Skin: No Rash, No Lesions, No Jaundice, No Bruising, No Other Objective Vitals Vital Signs Date Time Temp Pulse Resp B/P (MAP) Pulse Ox O2 Delivery O2 Flow Rate FiO2 10/25/24 13:06 97.5 67 20 115/69 (84) 95 97.5 10/25/24 08:20 Nasal Cannula* 5 40 Intake/Output Intake and Output 10/25/24 07:00 Intake Total 780.0 ml Output Total 1400 ml Balance -620.0 ml Intake Oral 730 ml IV Total 50.0 ml Output Urine Total 1400 ml General Appearance: Alert, Oriented X3, Cooperative, No acute distress HEENT: Atraumatic, PERRLA, EOMI, Mucous membr. moist/pink Neck: Supple Lungs: Clear to auscultation, Normal air movement Cardiovascular: Regular rate, Normal S1, Normal S2, No murmurs, Gallops, Rubs Abdomen: Normal bowel sounds, Soft, No tenderness Neuro: Normal gait, Normal speech, Cranial nerves 3-12 NL Skin: Dry, Intact Psych/Mental Status: Other (Alert awake) Medications Current Medications Medications Dose Ordered Sig/Leonard Route Start Time Stop Time Status Last Admin Dose Admin Atorvastatin Calcium 20 mg HS PO 10/21/24 22:00 10/24/24 23:12 20 MG Multivit/Ca Carb/ B Cmplx/FA/Prenat 1 tab DAILY PO 10/21/24 10:00 10/25/24 09:09 1 TAB Famotidine 20 mg DAILY IV 10/21/24 10:00 10/25/24 09:09 20 MG Albuterol 2.5 mg Q4HPRN PRN NEB 10/20/24 23:30 10/22/24 08:30 2.5 MG Ondansetron HCl 4 mg Q4HP PRN IV 10/20/24 23:30 Docusate Sodium 100 mg BIDPRN PRN PO 10/20/24 23:30 Acetaminophen 650 mg Q6HP PRN PO 10/20/24 23:30 10/24/24 21:06 650 MG Nitroglycerin 0.4 mg Q5MINP PRN SL 10/20/24 23:30 Morphine Sulfate 2 mg Q30M PRN IV 10/20/24 23:30 Apixaban 5 mg BID PO 10/21/24 10:00 10/25/24 09:09 5 MG Midodrine 10 mg TID@0600,1200,1800 PO 10/21/24 06:00 10/25/24 12:15 10 MG Sodium Chloride 10 ml QSHIFT@10,22 IV 10/21/24 22:00 10/25/24 09:09 10 ML Oxycodone HCl 20 mg TIDPRN PRN PO 10/22/24 13:30 10/25/24 12:15 20 MG Fluconazole 100 mg DAILY PO 10/23/24 12:55 10/25/24 09:10 100 MG Ceftriaxone Sodium 50 ml @ 100 mls/hr DAILY@09 IV 10/23/24 12:55 10/25/24 09:08 100 MLS/HR Amlodipine Besylate 5 mg DAILY PO 10/25/24 10:00 10/25/24 09:10 5 MG Aspirin 81 mg DAILY PO 10/25/24 10:00 10/25/24 09:09 81 MG Empaglifozin 10 mg DAILY PO 10/25/24 10:00 10/25/24 09:10 10 MG Furosemide 20 mg BID PO 10/24/24 22:00 10/25/24 09:10 20 MG Lisinopril 20 mg DAILY PO 10/25/24 10:00 10/25/24 09:11 20 MG Oxycodone HCl 20 mg BID PO 10/24/24 22:00 10/24/24 23:13 20 MG Trimethoprim/ Sulfamethoxazole 1 tab BID PO 10/24/24 22:00 10/25/24 09:11 1 TAB Laboratory Results Laboratory Tests 10/23/24 03:00 10/24/24 09:55 Urinalysis Test 10/20/24 23:30 10/21/24 12:37 Urine Color Colorless (Yellow) Urine Clarity Clear (Clear) Urine pH 5.0 (5.0-9.0) Urine Specific [place] 1.009 (1.001-1.035) Urine Protein Negative (Negative) Urine Ketones Negative (Negative) Urine Blood 3+ /uL (Negative) H Urine Nitrite Negative (Negative) Urine Bilirubin Negative (Negative) Urine Urobilinogen Normal mg/dL (Negative) Urine Leukocyte Esterase Trace /uL (Negative) Urine RBC 91 /hpf (0 - 4) Urine Microscopic WBC 16 /HPF (0-5) H Urine Squamous Epithelial Cells None seen /hpf (<5) Urine Bacteria Few /hpf (None Seen) H Urine Yeast (Budding) Few /hpf (None Seen) Urine Glucose Normal mg/dL (Normal) Urine Creatinine 25.46 mg/dL (30.0-125.0) L Urine Sodium 84 mmol/L (40-220) Microbiology Microbiology Date/Time Source Procedure Growth Status 10/22/24 02:45 Urine - [place] Urine Culture - Final Enterococcus faecalis Complete 10/21/24 15:47 Blood Blood Culture - Preliminary NO GROWTH AFTER 72 HOURS OF INCUBATION. Resulted 10/21/24 15:44 Nose MRSA Screen - Final Complete Labs and/or images reviewed: Labs reviewed by me, Image(s) reviewed by me Assessment/Plan Assessment/Plan Impression: -probable hypovolemic shock -acute kidney injury, vasomotor nephropathy -complicated cystitis -ER metabolic encephalopathy -acute on chronic diastolic heart failure, half Azul -obesity -deconditioning with bed-bound status -dyslipidemia Plan: Events: Events overnight. Renal function improving. Discussed with the patient discharge planning. Social service consultation to give the patient and daughter options for jail facility. -continue Diflucan and Rocephin -physical therapy -pain management -PUD prophylaxis -continue anticoagulation -repeat labs in a.m. Total time spent with patient discussing and formulating plan of care: 35 minutes. This medical document was created using an electronic medical record system with [employer] dictation system. Although this document has been carefully reviewed, there may still be some phonetic and typographical errors. These areas are purely typographical due to imperfections of the software programs, and do not reflect any compromise in the patient's medical care. Plan discussed with: Patient, Other (RN) My Orders Orders - KLAUS ZAMORANO NP Procedure Category Date Status Time Amlodipine Tablet PHA 10/25/24 In Process (Norvasc Tablet) 10:00 Aspirin Enteric PHA 10/25/24 In Process Coated Tablet 10:00 Empagliflozin PHA 10/25/24 In Process (Jardiance) 10:00 Furosemide Tablet PHA 10/24/24 In Process (Lasix Tablet) 22:00 Lisinopril Tablet PHA 10/25/24 In Process (Zestril Tablet) 10:00 Oxycodone Er Tablet PHA 10/24/24 In Process (Oxycontin Er Tablet 22:00 Sulfamethoxazole PHA 10/24/24 In Process W/Trimeth Tab (Bactrim 22:00 * Advertising Vice President CONS 10/25/24 Transmitted Consult Basic Metabolic Panel LAB 10/26/24 Verified 04:00 Magnesium LAB 10/26/24 Verified 04:00 Chest Portable XY 10/25/24 Transmitted 14:51 Date of Service: Oct 25, 2024 Billing Provider: KLAUS ZAMORANO NP Common Visit Codes: [id number] INP/OBS CARE(HIGH) KLAUS ZAMORANO NP Oct 25, 2024 14:55
--- NOTE | 2024-10-25 15:31 | DVH ---
EXAM: XY CHEST PORTABLE TECHNIQUE: Single frontal chest radiograph CLINICAL HISTORY: chf COMPARISON: XY CHEST PORTABLE on DOS: 10/22/24, XY CHEST PORTABLE on DOS: 10/21/24, XY CHEST XRAY 1 VIEW on DOS: 09/26/24 Findings/Impression: Frontal chest radiograph demonstrates no acute osseous or superficial soft tissue abnormalities. Left upper extremity PICC terminates near the superior cavoatrial junction The trachea is midline. Cardiomegaly with pulmonary vascular congestion, improved from prior. Small left pleural effusion with compressive atelectasis. A superimposed infectious process is not ex cluded No pneumothorax.
--- NOTE | 2024-10-25 19:01 | DVHPN2 ---
Progress Note Date Seen: Oct 25, 2024 Medical Necessity Reason Pt with a Central, PICC or Fol: Yes The following are medically ne: Swartz Catheter Reason for swartz catheter: Strict I&O Subjective Patient reports: No new complaints Review of Systems: Deferred Objective vital signs Vital Sign Date Time Temp Pulse Resp B/P (MAP) Pulse Ox O2 Delivery O2 Flow Rate FiO2 10/25/24 17:30 97.2 100 17 107/69 (82) 98 97.2 10/25/24 08:20 Nasal Cannula* 5 40 Total Intake and Output 10/24/24 10/24/24 10/25/24 15:00 23:00 07:00 Intake Total 290.0 ml 250 ml 240 ml Output Total 600 ml 800 ml Balance 290.0 ml -350 ml -560 ml medications Current Medications Medications Dose Ordered Sig/Leonard Route Start Time Stop Time Status Last Admin Dose Admin Atorvastatin Calcium 20 mg HS PO 10/21/24 22:00 10/24/24 23:12 20 MG Multivit/Ca Carb/ B Cmplx/FA/Prenat 1 tab DAILY PO 10/21/24 10:00 10/25/24 09:09 1 TAB Famotidine 20 mg DAILY IV 10/21/24 10:00 10/25/24 09:09 20 MG Albuterol 2.5 mg Q4HPRN PRN NEB 10/20/24 23:30 10/22/24 08:30 2.5 MG Ondansetron HCl 4 mg Q4HP PRN IV 10/20/24 23:30 Docusate Sodium 100 mg BIDPRN PRN PO 10/20/24 23:30 Acetaminophen 650 mg Q6HP PRN PO 10/20/24 23:30 10/24/24 21:06 650 MG Nitroglycerin 0.4 mg Q5MINP PRN SL 10/20/24 23:30 Morphine Sulfate 2 mg Q30M PRN IV 10/20/24 23:30 Apixaban 5 mg BID PO 10/21/24 10:00 10/25/24 09:09 5 MG Midodrine 10 mg TID@0600,1200,1800 PO 10/21/24 06:00 10/25/24 17:36 10 MG Sodium Chloride 10 ml QSHIFT@ IV 10/21/24 22:00 10/25/24 09:09 10 ML Oxycodone HCl 20 mg TIDPRN PRN PO 10/22/24 13:30 10/25/24 17:36 20 MG Fluconazole 100 mg DAILY PO 10/23/24 12:55 10/25/24 09:10 100 MG Ceftriaxone Sodium 50 ml @ 100 mls/hr DAILY@09 IV 10/23/24 12:55 10/25/24 09:08 100 MLS/HR Amlodipine Besylate 5 mg DAILY PO 10/25/24 10:00 10/25/24 09:10 5 MG Aspirin 81 mg DAILY PO 10/25/24 10:00 10/25/24 09:09 81 MG Empaglifozin 10 mg DAILY PO 10/25/24 10:00 10/25/24 09:10 10 MG Furosemide 20 mg BID PO 10/24/24 22:00 10/25/24 09:10 20 MG Lisinopril 20 mg DAILY PO 10/25/24 10:00 10/25/24 09:11 20 MG Oxycodone HCl 20 mg BID PO 10/24/24 22:00 10/24/24 23:13 20 MG Trimethoprim/ Sulfamethoxazole 1 tab BID PO 10/24/24 22:00 10/25/24 09:11 1 TAB Examination: GENERAL:Normal, LUNGS:Abnormal, MSK:Abnormal, SKIN:Abnormal, NEURO:Normal laboratory and microbiology Laboratory Tests 10/24/24 09:55 10/23/24 03:00 Test 10/24/24 09:55 Range/Units Serum Glucose 97 74-106 mg/dL Microbiology Date/Time Source Procedure Growth Status 10/22/24 02:45 Urine - [place] Urine Culture - Final Enterococcus faecalis Complete 10/21/24 15:47 Blood Blood Culture - Preliminary NO GROWTH AFTER 72 HOURS OF INCUBATION. Resulted 10/21/24 15:44 Nose MRSA Screen - Final Complete Problem List/Assessment/Plan Problem List/Assessment/Plan 1) Hemodynamically mediated JULIANNA/VMN, prerenal state 2) CKD stage 3A 3) hyperkalemia possibly in setting of acute kidney injury, concurrent therapy with BEBO inhibition as outpatient with resultant hypo renin, hypoaldo state 4) toxic metabolic encephalopathy 5) history of hypertension s/p shock recs DC Bactrim given recent Acute kidney injury----consider alternatives if cultures warrant Downgraded from ICU better renal function uop better off pressors Plan discussed with: Patient Dietary Evaluation Review Comments: 1) Initiate Nepro bid 2) If PO intake < 50%, consider EN/TPN to meet at least 75% of estimated needs 3) Refer to outpatient RD for weight management 4) Follow-up with cardiology, pulmonology, and nephrology 5) Continue to monitor I&O, labs, and skin integrity Expected Outcomes/Goals: 1) appetite and labs to improve 2) wounds to improve 3) f/u in 2-3 days CHIQUIS HUTCHINS MD Oct 25, 2024 19:01
[2024-10-25] MEDS: ONDANSETRON HCL 4 MG/2 ML VIAL IV PRN (20:21)
--- NOTE | 2024-10-25 21:45 | DVHPN2 ---
Progress Note - Dictate Date Seen: Oct 25, 2024 Medical Necessity Reason Pt with a Central, PICC or Fol: Yes The following are medically ne: Swartz Catheter Reason for swartz catheter: Strict I&O Subjective Patient seen and examined at bedside. Remains on supplemental oxygen Overnight events reviewed. [facility] vital signs Vital Sign Date Time Temp Pulse Resp B/P (MAP) Pulse Ox O2 Delivery O2 Flow Rate FiO2 10/25/24 21:00 97.4 75 18 113/76 (88) 96 97.4 10/25/24 20:00 Nasal Cannula* 4 36 Total Intake and Output 10/24/24 10/24/24 10/25/24 15:00 23:00 07:00 Intake Total 290.0 ml 250 ml 240 ml Output Total 600 ml 800 ml Balance 290.0 ml -350 ml -560 ml medications Current Medications Medications Dose Ordered Sig/Leonard Route Start Time Stop Time Status Last Admin Dose Admin Atorvastatin Calcium 20 mg HS PO 10/21/24 22:00 10/24/24 23:12 20 MG Multivit/Ca Carb/ B Cmplx/FA/Prenat 1 tab DAILY PO 10/21/24 10:00 10/25/24 09:09 1 TAB Famotidine 20 mg DAILY IV 10/21/24 10:00 10/25/24 09:09 20 MG Albuterol 2.5 mg Q4HPRN PRN NEB 10/20/24 23:30 10/22/24 08:30 2.5 MG Ondansetron HCl 4 mg Q4HP PRN IV 10/20/24 23:30 10/25/24 20:21 4 MG Docusate Sodium 100 mg BIDPRN PRN PO 10/20/24 23:30 Acetaminophen 650 mg Q6HP PRN PO 10/20/24 23:30 10/24/24 21:06 650 MG Nitroglycerin 0.4 mg Q5MINP PRN SL 10/20/24 23:30 Morphine Sulfate 2 mg Q30M PRN IV 10/20/24 23:30 Apixaban 5 mg BID PO 10/21/24 10:00 10/25/24 09:09 5 MG Midodrine 10 mg TID@0600,1200,1800 PO 10/21/24 06:00 10/25/24 17:36 10 MG Sodium Chloride 10 ml QSHIFT@10,22 IV 10/21/24 22:00 10/25/24 09:09 10 ML Oxycodone HCl 20 mg TIDPRN PRN PO 10/22/24 13:30 10/25/24 17:36 20 MG Fluconazole 100 mg DAILY PO 10/23/24 12:55 10/25/24 09:10 100 MG Ceftriaxone Sodium 50 ml @ 100 mls/hr DAILY@09 IV 10/23/24 12:55 10/25/24 09:08 100 MLS/HR Amlodipine Besylate 5 mg DAILY PO 10/25/24 10:00 10/25/24 09:10 5 MG Aspirin 81 mg DAILY PO 10/25/24 10:00 10/25/24 09:09 81 MG Empaglifozin 10 mg DAILY PO 10/25/24 10:00 10/25/24 09:10 10 MG Furosemide 20 mg BID PO 10/24/24 22:00 10/25/24 09:10 20 MG Lisinopril 20 mg DAILY PO 10/25/24 10:00 10/25/24 09:11 20 MG Oxycodone HCl 20 mg BID PO 10/24/24 22:00 10/24/24 23:13 20 MG objective Gen.: Patient lying in bed in no apparent distress. On supplemental oxygen. Head: Normocephalic, atraumatic. Eyes: EOMI/PERRLA. Ears: Normal hearing. Normal anatomy. Neck/trachea: Trachea midline, supple. Nose: Normal external anatomy. Mouth: Moist mucous membranes. Chest: Decreased air entry bilaterally. No wheezing or rhonchi. Cardiovascular: Positive S1, positive S2. Regular rate and rhythm. Abdomen: Positive bowel sounds in all 4 quadrants. Soft, non-tender, non- distended. : Deferred. Rectal: Deferred. Skin: Warm, dry. Intact. Extremities: 2+ radial pulses bilaterally. No lower extremity edema. Neuro: Awake, alert, oriented x3. No gross motor or sensory deficits. Cranial nerves II through XII intact. Gait not assessed. laboratory and microbiology Laboratory Tests 10/24/24 09:55 10/23/24 03:00 Test 10/24/24 09:55 Range/Units Serum Glucose 97 74-106 mg/dL Assessment/Plan Impression: Acute hypoxic respiratory failure Dependence on supplemental oxygen Urinary tract infection Septic shock Cellulitis Acute metabolic encephalopathy Super morbid obesity, BMI 54.7 Events: Remains on supplemental oxygen, 4 LPM NC Taper O2 as tolerated Off pressors since yesterday (10/24/24), hemodynamically stable. Continue antibiotics Continue bronchodilators Continue antifungal Incentive spirometry Sildenafil for pulmonary hypertension - on hold due to hypotension. On Eliquis Midodrine for blood pressure support Pain control - on home pain medication regimen Oxycodone q.8 hours PRN Avoid oversedation Pepcid for GI ppx Labs and imaging reviewed. Rest of plan as noted below. Plan: Supplemental oxygen Titrate to keep O2 sats above 92%. Pressors if necessary for hemodynamic support Titrate to keep MAP above 65 mmHg/SBP above 90 mmHg. Antibiotics Follow up cultures Continue antifungal Continue bronchodilators Eliquis BID Pain control Avoid oversedation Monitor renal function. Monitor electrolytes. Supplement as necessary. Monitor ins and outs. Diet and lifestyle modifications for weight reduction Obesity complicates all care DVT prophylaxis. Prognosis: Guarded given patient's multiple co-morbidities. Rest of plan per hospitalist and other consultants. Thank you Dr. Nava for allowing me to participate in this patient's care. Further recommendations will depend on the patient's clinical course. Please do not hesitate to contact me if you have any questions or concerns. This medical document was created using an electronic medical record system with [employer] dictation system. Although these documentations are being carefully reviewed, there may still be some phonetic and typographical changes. The errors are purely typographical, due to imperfection on the software program, and do not reflect any compromise in the patient's medical care. Dietary Evaluation Review Comments: 1) Initiate Nepro bid 2) If PO intake < 50%, consider EN/TPN to meet at least 75% of estimated needs 3) Refer to outpatient RD for weight management 4) Follow-up with cardiology, pulmonology, and nephrology 5) Continue to monitor I&O, labs, and skin integrity Expected Outcomes/Goals: 1) appetite and labs to improve 2) wounds to improve 3) f/u in 2-3 days Plan discussed with: Patient, Other (TAMICA Harris) CALEB FLOR MD Oct 25, 2024 21:45
[2024-10-25] MEDS: KETOROLAC TROMETH 30 MG/ML 1ML VIAL IV ONE (23:48)
[2024-10-26] VITALS (12 sets, daily range): BP systolic 104–128; BP diastolic 69–89; PULSE 58–114; RESP 13–20; TEMP 97.4–98.2; O2SAT 91–98
[2024-10-26 06:59] LABS: Anion Gap 12 (5-15); Carbon Dioxide 26 mmol/L (20-31); Chloride 104 mmol/L (98-107); Sodium 142 mmol/L (136-145)
[2024-10-26 07:00] LABS: Calcium 9.1 mg/dL (8.7-10.4)
[2024-10-26 07:05] LABS: BUN/Creatinine Ratio 15.0 (10.0-20.0); Blood Urea Nitrogen 18 mg/dL (9-23)
[2024-10-26 07:06] LABS: Glucose 117 mg/dL (74-106); Magnesium 1.3 mg/dL (1.6-2.6); Potassium 3.3 mmol/L (3.5-5.1)
--- NOTE | 2024-10-26 13:08 | DVHPN2 ---
Progress Note Date Seen: Oct 26, 2024 Medical Necessity Reason Pt with a Central, PICC or Fol: Yes The following are medically ne: Swartz Catheter Reason for swartz catheter: Strict I&O Subjective Patient reports: Other Review of Systems: GI:Abnormal (abd pain ) Objective vital signs Vital Sign Date Time Temp Pulse Resp B/P (MAP) Pulse Ox O2 Delivery O2 Flow Rate FiO2 10/26/24 09:38 108/69 10/26/24 09:00 98.2 68 18 93 98.2 10/26/24 08:24 Nasal Cannula* 4 36 Total Intake and Output 10/25/24 10/25/24 10/26/24 15:00 23:00 07:00 Intake Total 50 ml 1200 ml 300 ml Output Total 750 ml 450 ml Balance 50 ml 450 ml -150 ml medications Current Medications Medications Dose Ordered Sig/Leonard Route Start Time Stop Time Status Last Admin Dose Admin Atorvastatin Calcium 20 mg HS PO 10/21/24 22:00 10/25/24 21:58 20 MG Multivit/Ca Carb/ B Cmplx/FA/Prenat 1 tab DAILY PO 10/21/24 10:00 10/26/24 09:37 1 TAB Famotidine 20 mg DAILY IV 10/21/24 10:00 10/26/24 09:35 20 MG Albuterol 2.5 mg Q4HPRN PRN NEB 10/20/24 23:30 10/22/24 08:30 2.5 MG Ondansetron HCl 4 mg Q4HP PRN IV 10/20/24 23:30 10/25/24 20:21 4 MG Docusate Sodium 100 mg BIDPRN PRN PO 10/20/24 23:30 Acetaminophen 650 mg Q6HP PRN PO 10/20/24 23:30 10/24/24 21:06 650 MG Nitroglycerin 0.4 mg Q5MINP PRN SL 10/20/24 23:30 Morphine Sulfate 2 mg Q30M PRN IV 10/20/24 23:30 Apixaban 5 mg BID PO 10/21/24 10:00 10/26/24 09:36 5 MG Midodrine 10 mg TID@0600,1200,1800 PO 10/21/24 06:00 10/26/24 06:11 10 MG Sodium Chloride 10 ml QSHIFT@10,22 IV 10/21/24 22:00 10/26/24 09:36 10 ML Oxycodone HCl 20 mg TIDPRN PRN PO 10/22/24 13:30 10/26/24 03:57 20 MG Fluconazole 100 mg DAILY PO 10/23/24 12:55 10/26/24 09:36 100 MG Ceftriaxone Sodium 50 ml @ 100 mls/hr DAILY@09 IV 10/23/24 12:55 10/26/24 09:35 100 MLS/HR Amlodipine Besylate 5 mg DAILY PO 10/25/24 10:00 10/25/24 09:10 5 MG Aspirin 81 mg DAILY PO 10/25/24 10:00 10/26/24 09:36 81 MG Empaglifozin 10 mg DAILY PO 10/25/24 10:00 10/26/24 09:36 10 MG Furosemide 20 mg BID PO 10/24/24 22:00 10/25/24 21:58 20 MG Lisinopril 20 mg DAILY PO 10/25/24 10:00 10/25/24 09:11 20 MG Oxycodone HCl 20 mg BID PO 10/24/24 22:00 10/26/24 09:37 20 MG Examination: GENERAL:Normal, LUNGS:Normal, MSK:Normal, SKIN:Normal, NEURO:Normal, :Normal laboratory and microbiology Laboratory Tests 10/26/24 05:55 10/23/24 03:00 Test 10/26/24 05:55 Range/Units Serum Glucose 117 H 74-106 mg/dL Microbiology Date/Time Source Procedure Growth Status 10/22/24 02:45 Urine - Swartz Port Urine Culture - Final Enterococcus faecalis Complete 10/21/24 15:47 Blood Blood Culture - Preliminary NO GROWTH AFTER 72 HOURS OF INCUBATION. Resulted 10/21/24 15:44 Nose MRSA Screen - Final Complete Problem List/Assessment/Plan Problem List/Assessment/Plan 1) Hemodynamically mediated JULIANNA/VMN, prerenal state 2) CKD stage 3A 3) hyperkalemia possibly in setting of acute kidney injury, concurrent therapy with BBEO inhibition as outpatient with resultant hypo renin, hypoaldo state 4) toxic metabolic encephalopathy 5) history of hypertension s/p shock recs DC Bactrim given recent Acute kidney injury----consider alternatives if cultures warrant Downgraded from ICU hold lisinopril better renal function uop better Plan discussed with: Patient Dietary Evaluation Review Comments: 1) Initiate Nepro bid 2) If PO intake < 50%, consider EN/TPN to meet at least 75% of estimated needs 3) Refer to outpatient RD for weight management 4) Follow-up with cardiology, pulmonology, and nephrology 5) Continue to monitor I&O, labs, and skin integrity Expected Outcomes/Goals: 1) appetite and labs to improve 2) wounds to improve 3) f/u in 2-3 days CHIQUIS HUTCHINS MD Oct 26, 2024 13:08
--- NOTE | 2024-10-26 14:14 | DVHPN2 ---
Subjective Patient denies any symptoms at this time Reviewed: Care Plan, H&P, Labs, Medications, Previous Orders, Radiology Changes from previous H/P or p: No Changes General: Per HPI Eyes: No Pain, No Vision change, No Conjunctivae inflammation, No Eyelid inflammation, No Other, No Redness ENT: No Ear pain, No Ear discharge, No Nose pain, No Nose discharge, No Nose congestion, No Mouth pain, No Mouth swelling, No Throat pain, No Throat swelling, No Other Cardiovascular: No Chest Pain, No Palpitations, No Orthopnea, No Paroxysmal Noc. Dyspnea, No Edema, No Lt Headedness, No Other Respiratory: No Cough, No Dry, No Shortness of breath, No SOB with excertion, No Wheezing, No Hemoptysis, No Pleuritic Pain, No Sputum, No Other Gastrointestinal: No Nausea, No Vomiting, No Abdominal Pain, No Diarrhea, No Constipation, No Melena, No Hematochezia, No Other Genitourinary: No Dysuria, No Frequency, No Incontinence; Hematuria; No Retention; Other (Dark colored urine, Hutchinson catheter in place.) Musculoskeletal: No other, No neck pain, No shoulder pain, No arm pain, No back pain, No hand pain, No leg pain, No foot pain Skin: No Rash, No Lesions, No Jaundice, No Bruising, No Other Objective Vitals Vital Signs Date Time Temp Pulse Resp B/P (MAP) Pulse Ox O2 Delivery O2 Flow Rate FiO2 10/26/24 09:38 108/69 10/26/24 09:00 98.2 68 18 93 98.2 10/26/24 08:24 Nasal Cannula* 4 36 Intake/Output Intake and Output 10/26/24 07:00 Intake Total 1550 ml Output Total 1200 ml Balance 350 ml Intake Oral 1500 ml IV Total 50 ml Output Urine Total 1200 ml # Bowel Movements 2 General Appearance: Alert, Oriented X3, Cooperative, No acute distress HEENT: Atraumatic, PERRLA, EOMI, Mucous membr. moist/pink Neck: Supple Lungs: Clear to auscultation, Normal air movement Cardiovascular: Regular rate, Normal S1, Normal S2, No murmurs, Gallops, Rubs Abdomen: Normal bowel sounds, Soft, No tenderness Neuro: Normal gait, Normal speech, Cranial nerves 3-12 NL Skin: Dry, Intact Psych/Mental Status: Other (Alert awake) Medications Current Medications Medications Dose Ordered Sig/Leonard Route Start Time Stop Time Status Last Admin Dose Admin Atorvastatin Calcium 20 mg HS PO 10/21/24 22:00 10/25/24 21:58 20 MG Multivit/Ca Carb/ B Cmplx/FA/Prenat 1 tab DAILY PO 10/21/24 10:00 10/26/24 09:37 1 TAB Famotidine 20 mg DAILY IV 10/21/24 10:00 10/26/24 09:35 20 MG Albuterol 2.5 mg Q4HPRN PRN NEB 10/20/24 23:30 10/22/24 08:30 2.5 MG Ondansetron HCl 4 mg Q4HP PRN IV 10/20/24 23:30 10/25/24 20:21 4 MG Docusate Sodium 100 mg BIDPRN PRN PO 10/20/24 23:30 Acetaminophen 650 mg Q6HP PRN PO 10/20/24 23:30 10/24/24 21:06 650 MG Nitroglycerin 0.4 mg Q5MINP PRN SL 10/20/24 23:30 Morphine Sulfate 2 mg Q30M PRN IV 10/20/24 23:30 Apixaban 5 mg BID PO 10/21/24 10:00 10/26/24 09:36 5 MG Midodrine 10 mg TID@0600,1200,1800 PO 10/21/24 06:00 10/26/24 06:11 10 MG Sodium Chloride 10 ml QSHIFT@10,22 IV 10/21/24 22:00 10/26/24 09:36 10 ML Oxycodone HCl 20 mg TIDPRN PRN PO 10/22/24 13:30 10/26/24 03:57 20 MG Fluconazole 100 mg DAILY PO 10/23/24 12:55 10/26/24 09:36 100 MG Amlodipine Besylate 5 mg DAILY PO 10/25/24 10:00 10/25/24 09:10 5 MG Aspirin 81 mg DAILY PO 10/25/24 10:00 10/26/24 09:36 81 MG Empaglifozin 10 mg DAILY PO 10/25/24 10:00 10/26/24 09:36 10 MG Furosemide 20 mg BID PO 10/24/24 22:00 10/25/24 21:58 20 MG Oxycodone HCl 20 mg BID PO 10/24/24 22:00 10/26/24 09:37 20 MG Artificial Tears 1 drop Q6HP PRN EACHEYE 10/26/24 13:15 Amoxicillin/ Clavulanate Potassium 875 mg Q12HR PO 10/26/24 22:00 Laboratory Results Laboratory Tests 10/23/24 03:00 10/26/24 05:55 Chemistry Test 10/26/24 05:55 Calcium Level 9.1 mg/dL (8.7-10.4) Magnesium Level 1.3 mg/dL (1.6-2.6) L Urinalysis Test 10/20/24 23:30 10/21/24 12:37 Urine Color Colorless (Yellow) Urine Clarity Clear (Clear) Urine pH 5.0 (5.0-9.0) Urine Specific [place] 1.009 (1.001-1.035) Urine Protein Negative (Negative) Urine Ketones Negative (Negative) Urine Blood 3+ /uL (Negative) H Urine Nitrite Negative (Negative) Urine Bilirubin Negative (Negative) Urine Urobilinogen Normal mg/dL (Negative) Urine Leukocyte Esterase Trace /uL (Negative) Urine RBC 91 /hpf (0 - 4) Urine Microscopic WBC 16 /HPF (0-5) H Urine Squamous Epithelial Cells None seen /hpf (<5) Urine Bacteria Few /hpf (None Seen) H Urine Yeast (Budding) Few /hpf (None Seen) Urine Glucose Normal mg/dL (Normal) Urine Creatinine 25.46 mg/dL (30.0-125.0) L Urine Sodium 84 mmol/L (40-220) Microbiology Microbiology Date/Time Source Procedure Growth Status 10/22/24 02:45 Urine - [place] Port Urine Culture - Final Enterococcus faecalis Complete 10/21/24 15:47 Blood Blood Culture - Preliminary NO GROWTH AFTER 72 HOURS OF INCUBATION. Resulted 10/21/24 15:44 Nose MRSA Screen - Final Complete Labs and/or images reviewed: Labs reviewed by me, Image(s) reviewed by me Assessment/Plan Assessment/Plan Impression: -probable hypovolemic shock -acute kidney injury, vasomotor nephropathy -complicated cystitis -ER metabolic encephalopathy -acute on chronic diastolic heart failure, half Azul -obesity -deconditioning with bed-bound status -dyslipidemia Plan: Events: Events overnight. Renal function improving. Discussed with the patient discharge planning. Social service consultation to give the patient and daughter options for retirement facility. -continue Diflucan and Rocephin -physical therapy -pain management -PUD prophylaxis -continue anticoagulation -repeat labs in a.m. Total time spent with patient discussing and formulating plan of care: 35 minutes. This medical document was created using an electronic medical record system with [employer] dictation system. Although this document has been carefully reviewed, there may still be some phonetic and typographical errors. These areas are purely typographical due to imperfections of the software programs, and do not reflect any compromise in the patient's medical care. Plan discussed with: Patient, Other ( RN) My Orders Orders - KLAUS ZAMORANO NP Procedure Category Date Status Time * Administrative Office Assistant CONS 10/25/24 Transmitted Consult Chest Portable XY 10/25/24 Resulted 14:51 Artificial Tear 15ml PHA 10/26/24 In Process Opthalmic (Tears Na 13:15 Amoxicillin/Clavulanate PHA 10/26/24 In Process Tablet (Augmenti 22:00 Date of Service: Oct 26, 2024 Billing Provider: KLAUS ZAMORANO NP Common Visit Codes: [id number] INP/OBS CARE(HIGH) KLAUS ZAMORANO NP Oct 26, 2024 14:14
[2024-10-26] MEDS: ARTIFICIAL TEARS 15ml EACHEYE PRN (18:49)
[2024-10-26] MEDS: AMOXICILLIN/CLAVUL 875 MG TAB PO SCH (22:29)
--- NOTE | 2024-10-26 23:49 | DVHPN2 ---
Progress Note - Dictate Date Seen: Oct 26, 2024 Medical Necessity Reason Pt with a Central, PICC or Fol: Yes The following are medically ne: Swartz Catheter Reason for swartz catheter: Strict I&O Subjective Patient seen and examined at bedside. Remains on supplemental oxygen Overnight events reviewed. [facility] vital signs Vital Sign Date Time Temp Pulse Resp B/P (MAP) Pulse Ox O2 Delivery O2 Flow Rate FiO2 10/26/24 22:00 104/73 10/26/24 21:00 97.9 64 16 91 97.9 10/26/24 20:53 Nasal Cannula* 5 40 Total Intake and Output 10/25/24 10/25/24 10/26/24 15:00 23:00 07:00 Intake Total 50 ml 1200 ml 300 ml Output Total 750 ml 450 ml Balance 50 ml 450 ml -150 ml medications Current Medications Medications Dose Ordered Sig/Leonard Route Start Time Stop Time Status Last Admin Dose Admin Atorvastatin Calcium 20 mg HS PO 10/21/24 22:00 10/26/24 22:25 20 MG Multivit/Ca Carb/ B Cmplx/FA/Prenat 1 tab DAILY PO 10/21/24 10:00 10/26/24 09:37 1 TAB Albuterol 2.5 mg Q4HPRN PRN NEB 10/20/24 23:30 10/22/24 08:30 2.5 MG Ondansetron HCl 4 mg Q4HP PRN IV 10/20/24 23:30 10/26/24 18:50 4 MG Docusate Sodium 100 mg BIDPRN PRN PO 10/20/24 23:30 Acetaminophen 650 mg Q6HP PRN PO 10/20/24 23:30 10/24/24 21:06 650 MG Nitroglycerin 0.4 mg Q5MINP PRN SL 10/20/24 23:30 Morphine Sulfate 2 mg Q30M PRN IV 10/20/24 23:30 Apixaban 5 mg BID PO 10/21/24 10:00 10/26/24 22:25 5 MG Midodrine 10 mg TID@0600,1200,1800 PO 10/21/24 06:00 10/26/24 17:49 10 MG Sodium Chloride 10 ml QSHIFT@ IV 10/21/24 22:00 10/26/24 22:25 10 ML Oxycodone HCl 20 mg TIDPRN PRN PO 10/22/24 13:30 10/26/24 18:50 20 MG Amlodipine Besylate 5 mg DAILY PO 10/25/24 10:00 10/25/24 09:10 5 MG Aspirin 81 mg DAILY PO 10/25/24 10:00 10/26/24 09:36 81 MG Empaglifozin 10 mg DAILY PO 10/25/24 10:00 10/26/24 09:36 10 MG Furosemide 20 mg BID PO 10/24/24 22:00 10/25/24 21:58 20 MG Oxycodone HCl 20 mg BID PO 10/24/24 22:00 10/26/24 09:37 20 MG Artificial Tears 1 drop Q6HP PRN EACHEYE 10/26/24 13:15 10/26/24 18:49 1 DROP Amoxicillin/ Clavulanate Potassium 875 mg Q12HR PO 10/26/24 22:00 10/26/24 22:29 875 MG Famotidine 10 mg DAILY IV 10/27/24 10:00 Fluconazole 50 mg DAILY PO 10/27/24 10:00 objective Gen.: Patient lying in bed in no apparent distress. On supplemental oxygen. Head: Normocephalic, atraumatic. Eyes: EOMI/PERRLA. Ears: Normal hearing. Normal anatomy. Neck/trachea: Trachea midline, supple. Nose: Normal external anatomy. Mouth: Moist mucous membranes. Chest: Decreased air entry bilaterally. No wheezing or rhonchi. Cardiovascular: Positive S1, positive S2. Regular rate and rhythm. Abdomen: Positive bowel sounds in all 4 quadrants. Soft, non-tender, non- distended. : Deferred. Rectal: Deferred. Skin: Warm, dry. Intact. Extremities: 2+ radial pulses bilaterally. No lower extremity edema. Neuro: Awake, alert, oriented x3. No gross motor or sensory deficits. Cranial nerves II through XII intact. Gait not assessed. laboratory and microbiology Laboratory Tests 10/26/24 05:55 10/23/24 03:00 Test 10/26/24 05:55 Range/Units Serum Glucose 117 H 74-106 mg/dL Assessment/Plan Impression: Acute hypoxic respiratory failure Dependence on supplemental oxygen Urinary tract infection Septic shock Cellulitis Acute metabolic encephalopathy Super morbid obesity, BMI 54.7 Events: Remains on supplemental oxygen, 2 LPM NC Taper O2 as tolerated Improving O2 requirements Off pressors since 10/24/24, hemodynamically stable. Continue antibiotics Continue antifungal Incentive spirometry Sildenafil for pulmonary hypertension - on hold due to hypotension. On Eliquis Midodrine for blood pressure support Pain control - on home pain medication regimen Oxycodone q.8 hours PRN Avoid oversedation Pepcid for GI ppx Patient is stable for discharge from the pulmonary standpoint. Labs and imaging reviewed. Rest of plan as noted below. Plan: Supplemental oxygen Titrate to keep O2 sats above 92%. Pressors if necessary for hemodynamic support Titrate to keep MAP above 65 mmHg/SBP above 90 mmHg. Antibiotics Follow up cultures - urine cx grew Enterococcus faecalis. Antifungal medication Bronchodilators PRN. Eliquis BID Pain control Avoid oversedation Monitor renal function. Monitor electrolytes. Supplement as necessary. Monitor ins and outs. Diet and lifestyle modifications for weight reduction Obesity complicates all care DVT prophylaxis. Prognosis: Guarded given patient's multiple co-morbidities. Rest of plan per hospitalist and other consultants. Thank you Dr. Nava for allowing me to participate in this patient's care. Further recommendations will depend on the patient's clinical course. Please do not hesitate to contact me if you have any questions or concerns. This medical document was created using an electronic medical record system with [employer] dictation system. Although these documentations are being carefully reviewed, there may still be some phonetic and typographical changes. The errors are purely typographical, due to imperfection on the software program, and do not reflect any compromise in the patient's medical care. Dietary Evaluation Review Comments: 1) Initiate Nepro bid 2) If PO intake < 50%, consider EN/TPN to meet at least 75% of estimated needs 3) Refer to outpatient RD for weight management 4) Follow-up with cardiology, pulmonology, and nephrology 5) Continue to monitor I&O, labs, and skin integrity Expected Outcomes/Goals: 1) appetite and labs to improve 2) wounds to improve 3) f/u in 2-3 days Plan discussed with: Patient, Other (TAMICA Woo) CALEB FLOR MD Oct 26, 2024 23:49
[2024-10-27] VITALS (11 sets, daily range): BP systolic 98–112; BP diastolic 61–78; PULSE 70–132; RESP 13–18; TEMP 96.6–97.6; O2SAT 93–96
[2024-10-27] MEDS: FLUCONAZOLE 100 MG TAB PO SCH (09:53)
[2024-10-27] MEDS: FAMOTIDINE (10MG/ML) 2ML VL IV SCH (09:53)
--- NOTE | 2024-10-27 13:22 | DVHPN2 ---
Progress Note - Dictate Date Seen: Oct 27, 2024 Medical Necessity Reason Pt with a Central, PICC or Fol: Yes The following are medically ne: Swartz Catheter Reason for swartz catheter: Strict I&O vital signs Vital Sign Date Time Temp Pulse Resp B/P (MAP) Pulse Ox O2 Delivery O2 Flow Rate FiO2 10/27/24 13:00 96.6 71 16 112/72 (85) 94 96.6 10/27/24 08:16 Nasal Cannula 5.0 10/27/24 08:16 40 Total Intake and Output 10/26/24 10/26/24 10/27/24 15:00 23:00 07:00 Intake Total 520 ml 600 ml Output Total 450 ml 175 ml Balance 70 ml 425 ml medications Current Medications Medications Dose Ordered Sig/Leonard Route Start Time Stop Time Status Last Admin Dose Admin Atorvastatin Calcium 20 mg HS PO 10/21/24 22:00 10/26/24 22:25 20 MG Multivit/Ca Carb/ B Cmplx/FA/Prenat 1 tab DAILY PO 10/21/24 10:00 10/27/24 09:54 1 TAB Albuterol 2.5 mg Q4HPRN PRN NEB 10/20/24 23:30 10/22/24 08:30 2.5 MG Ondansetron HCl 4 mg Q4HP PRN IV 10/20/24 23:30 10/27/24 03:04 4 MG Docusate Sodium 100 mg BIDPRN PRN PO 10/20/24 23:30 Acetaminophen 650 mg Q6HP PRN PO 10/20/24 23:30 10/24/24 21:06 650 MG Nitroglycerin 0.4 mg Q5MINP PRN SL 10/20/24 23:30 Morphine Sulfate 2 mg Q30M PRN IV 10/20/24 23:30 Apixaban 5 mg BID PO 10/21/24 10:00 10/27/24 09:53 5 MG Midodrine 10 mg TID@0600,1200,1800 PO 10/21/24 06:00 10/27/24 06:23 10 MG Sodium Chloride 10 ml QSHIFT@10,22 IV 10/21/24 22:00 10/27/24 09:55 10 ML Oxycodone HCl 20 mg TIDPRN PRN PO 10/22/24 13:30 10/27/24 02:47 20 MG Amlodipine Besylate 5 mg DAILY PO 10/25/24 10:00 10/25/24 09:10 5 MG Aspirin 81 mg DAILY PO 10/25/24 10:00 10/27/24 09:53 81 MG Empaglifozin 10 mg DAILY PO 10/25/24 10:00 10/27/24 09:54 10 MG Furosemide 20 mg BID PO 10/24/24 22:00 10/25/24 21:58 20 MG Oxycodone HCl 20 mg BID PO 10/24/24 22:00 10/27/24 09:54 20 MG Artificial Tears 1 drop Q6HP PRN EACHEYE 10/26/24 13:15 10/27/24 06:55 1 DROP Amoxicillin/ Clavulanate Potassium 875 mg Q12HR PO 10/26/24 22:00 10/26/24 22:29 875 MG Famotidine 10 mg DAILY IV 10/27/24 10:00 10/27/24 09:53 10 MG Fluconazole 50 mg DAILY PO 10/27/24 10:00 10/27/24 09:53 50 MG laboratory and microbiology Laboratory Tests 10/26/24 05:55 10/23/24 03:00 Test 10/26/24 05:55 Range/Units Serum Glucose 117 H 74-106 mg/dL Assessment/Plan Acute hypoxic respiratory failure Dependence on supplemental oxygen Urinary tract infection Septic shock Cellulitis Acute metabolic encephalopathy Super morbid obesity, BMI 54.7 Events: Remains on supplemental oxygen, 2 LPM NC Taper O2 as tolerated Improving O2 requirements Off pressors since 10/24/24, hemodynamically stable. Continue antibiotics Continue antifungal Incentive spirometry Sildenafil for pulmonary hypertension - on hold due to hypotension. On Eliquis Midodrine for blood pressure support Pain control - on home pain medication regimen Oxycodone q.8 hours PRN Avoid oversedation Pepcid for GI ppx Patient is stable for discharge from the pulmonary standpoint. Dietary Evaluation Review Comments: 1) Initiate Nepro bid 2) If PO intake < 50%, consider EN/TPN to meet at least 75% of estimated needs 3) Refer to outpatient RD for weight management 4) Follow-up with cardiology, pulmonology, and nephrology 5) Continue to monitor I&O, labs, and skin integrity Expected Outcomes/Goals: 1) appetite and labs to improve 2) wounds to improve 3) f/u in 2-3 days Plan discussed with: Patient SHARLENE COX MD Oct 27, 2024 13:22
--- NOTE | 2024-10-27 15:40 | DVHPN2 ---
Subjective Patient denies any symptoms at this time Reviewed: Care Plan, H&P, Labs, Medications, Previous Orders, Radiology Changes from previous H/P or p: No Changes General: Per HPI Eyes: No Pain, No Vision change, No Conjunctivae inflammation, No Eyelid inflammation, No Other, No Redness ENT: No Ear pain, No Ear discharge, No Nose pain, No Nose discharge, No Nose congestion, No Mouth pain, No Mouth swelling, No Throat pain, No Throat swelling, No Other Cardiovascular: No Chest Pain, No Palpitations, No Orthopnea, No Paroxysmal Noc. Dyspnea, No Edema, No Lt Headedness, No Other Respiratory: No Cough, No Dry, No Shortness of breath, No SOB with excertion, No Wheezing, No Hemoptysis, No Pleuritic Pain, No Sputum, No Other Gastrointestinal: No Nausea, No Vomiting, No Abdominal Pain, No Diarrhea, No Constipation, No Melena, No Hematochezia, No Other Genitourinary: No Dysuria, No Frequency, No Incontinence; Hematuria; No Retention; Other (Dark colored urine, Hutchinson catheter in place.) Musculoskeletal: No other, No neck pain, No shoulder pain, No arm pain, No back pain, No hand pain, No leg pain, No foot pain Skin: No Rash, No Lesions, No Jaundice, No Bruising, No Other Objective Vitals Vital Signs Date Time Temp Pulse Resp B/P (MAP) Pulse Ox O2 Delivery O2 Flow Rate FiO2 10/27/24 13:00 96.6 71 16 112/72 (85) 94 96.6 10/27/24 08:16 Nasal Cannula 5.0 10/27/24 08:16 40 Intake/Output Intake and Output 10/27/24 07:00 Intake Total 1120 ml Output Total 625 ml Balance 495 ml Intake Oral 1120 ml Output Urine Total 625 ml General Appearance: Alert, Oriented X3, Cooperative, No acute distress HEENT: Atraumatic, PERRLA, EOMI, Mucous membr. moist/pink Neck: Supple Lungs: Clear to auscultation, Normal air movement Cardiovascular: Regular rate, Normal S1, Normal S2, No murmurs, Gallops, Rubs Abdomen: Normal bowel sounds, Soft, No tenderness Neuro: Normal gait, Normal speech, Cranial nerves 3-12 NL Skin: Dry, Intact Psych/Mental Status: Other (Alert awake) Medications Current Medications Medications Dose Ordered Sig/Leonard Route Start Time Stop Time Status Last Admin Dose Admin Atorvastatin Calcium 20 mg HS PO 10/21/24 22:00 10/26/24 22:25 20 MG Multivit/Ca Carb/ B Cmplx/FA/Prenat 1 tab DAILY PO 10/21/24 10:00 10/27/24 09:54 1 TAB Albuterol 2.5 mg Q4HPRN PRN NEB 10/20/24 23:30 10/22/24 08:30 2.5 MG Ondansetron HCl 4 mg Q4HP PRN IV 10/20/24 23:30 10/27/24 03:04 4 MG Docusate Sodium 100 mg BIDPRN PRN PO 10/20/24 23:30 Acetaminophen 650 mg Q6HP PRN PO 10/20/24 23:30 10/24/24 21:06 650 MG Nitroglycerin 0.4 mg Q5MINP PRN SL 10/20/24 23:30 Morphine Sulfate 2 mg Q30M PRN IV 10/20/24 23:30 Apixaban 5 mg BID PO 10/21/24 10:00 10/27/24 09:53 5 MG Midodrine 10 mg TID@0600,1200,1800 PO 10/21/24 06:00 10/27/24 13:23 10 MG Sodium Chloride 10 ml QSHIFT@10,22 IV 10/21/24 22:00 10/27/24 09:55 10 ML Oxycodone HCl 20 mg TIDPRN PRN PO 10/22/24 13:30 10/27/24 02:47 20 MG Amlodipine Besylate 5 mg DAILY PO 10/25/24 10:00 10/25/24 09:10 5 MG Aspirin 81 mg DAILY PO 10/25/24 10:00 10/27/24 09:53 81 MG Empaglifozin 10 mg DAILY PO 10/25/24 10:00 10/27/24 09:54 10 MG Furosemide 20 mg BID PO 10/24/24 22:00 10/25/24 21:58 20 MG Oxycodone HCl 20 mg BID PO 10/24/24 22:00 10/27/24 09:54 20 MG Artificial Tears 1 drop Q6HP PRN EACHEYE 10/26/24 13:15 10/27/24 06:55 1 DROP Amoxicillin/ Clavulanate Potassium 875 mg Q12HR PO 10/26/24 22:00 10/27/24 13:23 875 MG Famotidine 10 mg DAILY IV 10/27/24 10:00 10/27/24 09:53 10 MG Fluconazole 50 mg DAILY PO 10/27/24 10:00 10/27/24 09:53 50 MG Laboratory Results Laboratory Tests 10/23/24 03:00 10/26/24 05:55 Urinalysis Test 10/20/24 23:30 10/21/24 12:37 Urine Color Colorless (Yellow) Urine Clarity Clear (Clear) Urine pH 5.0 (5.0-9.0) Urine Specific [place] 1.009 (1.001-1.035) Urine Protein Negative (Negative) Urine Ketones Negative (Negative) Urine Blood 3+ /uL (Negative) H Urine Nitrite Negative (Negative) Urine Bilirubin Negative (Negative) Urine Urobilinogen Normal mg/dL (Negative) Urine Leukocyte Esterase Trace /uL (Negative) Urine RBC 91 /hpf (0 - 4) Urine Microscopic WBC 16 /HPF (0-5) H Urine Squamous Epithelial Cells None seen /hpf (<5) Urine Bacteria Few /hpf (None Seen) H Urine Yeast (Budding) Few /hpf (None Seen) Urine Glucose Normal mg/dL (Normal) Urine Creatinine 25.46 mg/dL (30.0-125.0) L Urine Sodium 84 mmol/L (40-220) Microbiology Microbiology Date/Time Source Procedure Growth Status 10/22/24 02:45 Urine - [place] Urine Culture - Final Enterococcus faecalis Complete 10/21/24 15:47 Blood Blood Culture - Final NO GROWTH AFTER 5 DAYS OF INCUBATION. Complete 10/21/24 15:44 Nose MRSA Screen - Final Complete Labs and/or images reviewed: Labs reviewed by me, Image(s) reviewed by me Assessment/Plan Assessment/Plan Impression: -probable hypovolemic shock -acute kidney injury, vasomotor nephropathy -complicated cystitis -ER metabolic encephalopathy -acute on chronic diastolic heart failure, half Azul -obesity -deconditioning with bed-bound status -dyslipidemia Plan: Events: Events overnight. Continue DC planning to SNF -continue Diflucan and Rocephin -physical therapy -pain management -PUD prophylaxis -continue anticoagulation Total time spent with patient discussing and formulating plan of care: 35 minutes. This medical document was created using an electronic medical record system with [employer] dictation system. Although this document has been carefully reviewed, there may still be some phonetic and typographical errors. These areas are purely typographical due to imperfections of the software programs, and do not reflect any compromise in the patient's medical care. Plan discussed with: Patient, Other (RN) My Orders Orders - KLAUS ZAMORANO NP Procedure Category Date Status Time Fluconazole Tablet PHA 10/27/24 In Process (Diflucan Tablet) 10:00 Date of Service: Oct 27, 2024 Billing Provider: KLAUS ZAMORANO NP Common Visit Codes: [id number] INP/OBS CARE(HIGH) KLAUS ZAMORANO NP Oct 27, 2024 15:40
--- NOTE | 2024-10-27 19:51 | DVHPN2 ---
Progress Note Date Seen: Oct 27, 2024 Medical Necessity Reason Pt with a Central, PICC or Fol: Yes The following are medically ne: Swartz Catheter Reason for swartz catheter: Strict I&O Subjective Patient reports: Other Review of Systems: GI:Abnormal (abd pain), Deferred Objective vital signs Vital Sign Date Time Temp Pulse Resp B/P (MAP) Pulse Ox O2 Delivery O2 Flow Rate FiO2 10/27/24 19:30 94 Nasal Cannula* 5 40 10/27/24 17:00 96.6 76 16 102/68 (79) 96.6 Total Intake and Output 10/26/24 10/26/24 10/27/24 15:00 23:00 07:00 Intake Total 520 ml 600 ml Output Total 450 ml 175 ml Balance 70 ml 425 ml medications Current Medications Medications Dose Ordered Sig/Leonard Route Start Time Stop Time Status Last Admin Dose Admin Atorvastatin Calcium 20 mg HS PO 10/21/24 22:00 10/26/24 22:25 20 MG Multivit/Ca Carb/ B Cmplx/FA/Prenat 1 tab DAILY PO 10/21/24 10:00 10/27/24 09:54 1 TAB Albuterol 2.5 mg Q4HPRN PRN NEB 10/20/24 23:30 10/22/24 08:30 2.5 MG Ondansetron HCl 4 mg Q4HP PRN IV 10/20/24 23:30 10/27/24 03:04 4 MG Docusate Sodium 100 mg BIDPRN PRN PO 10/20/24 23:30 Acetaminophen 650 mg Q6HP PRN PO 10/20/24 23:30 10/24/24 21:06 650 MG Nitroglycerin 0.4 mg Q5MINP PRN SL 10/20/24 23:30 Morphine Sulfate 2 mg Q30M PRN IV 10/20/24 23:30 Apixaban 5 mg BID PO 10/21/24 10:00 10/27/24 09:53 5 MG Midodrine 10 mg TID@0600,1200,1800 PO 10/21/24 06:00 10/27/24 17:51 10 MG Sodium Chloride 10 ml QSHIFT@10,22 IV 10/21/24 22:00 10/27/24 09:55 10 ML Oxycodone HCl 20 mg TIDPRN PRN PO 10/22/24 13:30 10/27/24 16:29 20 MG Amlodipine Besylate 5 mg DAILY PO 10/25/24 10:00 10/25/24 09:10 5 MG Aspirin 81 mg DAILY PO 10/25/24 10:00 10/27/24 09:53 81 MG Empaglifozin 10 mg DAILY PO 10/25/24 10:00 10/27/24 09:54 10 MG Furosemide 20 mg BID PO 10/24/24 22:00 10/25/24 21:58 20 MG Oxycodone HCl 20 mg BID PO 10/24/24 22:00 10/27/24 09:54 20 MG Artificial Tears 1 drop Q6HP PRN EACHEYE 10/26/24 13:15 10/27/24 06:55 1 DROP Amoxicillin/ Clavulanate Potassium 875 mg Q12HR PO 10/26/24 22:00 10/27/24 13:23 875 MG Famotidine 10 mg DAILY IV 10/27/24 10:00 10/27/24 09:53 10 MG Fluconazole 50 mg DAILY PO 10/27/24 10:00 10/27/24 09:53 50 MG Examination: GENERAL:Normal, MSK:Abnormal, NEURO:Normal laboratory and microbiology Laboratory Tests 10/26/24 05:55 10/23/24 03:00 Test 10/26/24 05:55 Range/Units Serum Glucose 117 H 74-106 mg/dL Microbiology Date/Time Source Procedure Growth Status 10/22/24 02:45 Urine - [place] Urine Culture - Final Enterococcus faecalis Complete 10/21/24 15:47 Blood Blood Culture - Final NO GROWTH AFTER 5 DAYS OF INCUBATION. Complete 10/21/24 15:44 Nose MRSA Screen - Final Complete Problem List/Assessment/Plan Problem List/Assessment/Plan 1) Hemodynamically mediated JULIANNA/VMN, prerenal state 2) CKD stage 3A 3) hyperkalemia possibly in setting of acute kidney injury, concurrent therapy with BEBO inhibition as outpatient with resultant hypo renin, hypoaldo state 4) toxic metabolic encephalopathy 5) history of hypertension s/p shock recs DC Bactrim given recent Acute kidney injury----consider alternatives if cultures warrant Downgraded from ICU hold lisinopril better renal function uop better Patient has chronic Swartz for several months outpatient follow-up with Urology for need of Swartz Labs in am Plan discussed with: Patient Dietary Evaluation Review Comments: 1) Initiate Nepro bid 2) If PO intake < 50%, consider EN/TPN to meet at least 75% of estimated needs 3) Refer to outpatient RD for weight management 4) Follow-up with cardiology, pulmonology, and nephrology 5) Continue to monitor I&O, labs, and skin integrity Expected Outcomes/Goals: 1) appetite and labs to improve 2) wounds to improve 3) f/u in 2-3 days CHIQUIS HUTCHINS MD Oct 27, 2024 19:51
[2024-10-28] VITALS (11 sets, daily range): BP systolic 99–115; BP diastolic 59–76; PULSE 58–118; RESP 15–18; TEMP 96.6–97.1; O2SAT 94–98
--- NOTE | 2024-10-28 13:06 | DVHPN2 ---
Progress Note - Dictate Date Seen: Oct 28, 2024 Medical Necessity Reason Pt with a Central, PICC or Fol: Yes The following are medically ne: Swartz Catheter Reason for swartz catheter: Strict I&O vital signs Vital Sign Date Time Temp Pulse Resp B/P (MAP) Pulse Ox O2 Delivery O2 Flow Rate FiO2 10/28/24 12:36 96.6 58 16 99/61 (74) 98 96.6 10/28/24 08:20 Nasal Cannula* 4 36 Total Intake and Output 10/27/24 10/27/24 10/28/24 15:00 23:00 07:00 Intake Total 620 ml 300 ml Output Total 300 ml 350 ml Balance 320 ml -50 ml medications Current Medications Medications Dose Ordered Sig/Leonard Route Start Time Stop Time Status Last Admin Dose Admin Atorvastatin Calcium 20 mg HS PO 10/21/24 22:00 10/27/24 22:00 20 MG Multivit/Ca Carb/ B Cmplx/FA/Prenat 1 tab DAILY PO 10/21/24 10:00 10/28/24 09:25 1 TAB Albuterol 2.5 mg Q4HPRN PRN NEB 10/20/24 23:30 10/22/24 08:30 2.5 MG Ondansetron HCl 4 mg Q4HP PRN IV 10/20/24 23:30 10/28/24 09:23 4 MG Docusate Sodium 100 mg BIDPRN PRN PO 10/20/24 23:30 Acetaminophen 650 mg Q6HP PRN PO 10/20/24 23:30 10/24/24 21:06 650 MG Nitroglycerin 0.4 mg Q5MINP PRN SL 10/20/24 23:30 Morphine Sulfate 2 mg Q30M PRN IV 10/20/24 23:30 Apixaban 5 mg BID PO 10/21/24 10:00 10/28/24 09:24 5 MG Midodrine 10 mg TID@0600,1200,1800 PO 10/21/24 06:00 10/28/24 11:55 10 MG Sodium Chloride 10 ml QSHIFT@10,22 IV 10/21/24 22:00 10/28/24 09:22 10 ML Oxycodone HCl 20 mg TIDPRN PRN PO 10/22/24 13:30 10/28/24 01:45 20 MG Amlodipine Besylate 5 mg DAILY PO 10/25/24 10:00 10/28/24 09:23 5 MG Aspirin 81 mg DAILY PO 10/25/24 10:00 10/28/24 09:24 81 MG Empaglifozin 10 mg DAILY PO 10/25/24 10:00 10/28/24 09:23 10 MG Furosemide 20 mg BID PO 10/24/24 22:00 10/28/24 09:24 20 MG Oxycodone HCl 20 mg BID PO 10/24/24 22:00 10/28/24 09:25 20 MG Artificial Tears 1 drop Q6HP PRN EACHEYE 10/26/24 13:15 10/27/24 20:46 1 DROP Amoxicillin/ Clavulanate Potassium 875 mg Q12HR PO 10/26/24 22:00 10/28/24 09:25 875 MG Famotidine 10 mg DAILY IV 10/27/24 10:00 10/28/24 09:23 10 MG Fluconazole 50 mg DAILY PO 10/27/24 10:00 10/28/24 09:24 50 MG laboratory and microbiology Laboratory Tests 10/26/24 05:55 10/23/24 03:00 Test 10/26/24 05:55 Range/Units Serum Glucose 117 H 74-106 mg/dL Assessment/Plan Acute hypoxic respiratory failure Dependence on supplemental oxygen Urinary tract infection Septic shock Cellulitis Acute metabolic encephalopathy Super morbid obesity, BMI 54.7 Events: Low oxygen requirements On 2 LPM NC No distress Management Continue antibiotics Continue antifungal Incentive spirometry Midodrine for blood pressure support Pain control - on home pain medication regimen Oxycodone q.8 hours PRN Avoid oversedation Pepcid for GI ppx Patient is stable for discharge from the pulmonary standpoint. Dietary Evaluation Review Comments: 1) Initiate Nepro bid 2) If PO intake < 50%, consider EN/TPN to meet at least 75% of estimated needs 3) Refer to outpatient RD for weight management 4) Follow-up with cardiology, pulmonology, and nephrology 5) Continue to monitor I&O, labs, and skin integrity Expected Outcomes/Goals: 1) appetite and labs to improve 2) wounds to improve 3) f/u in 2-3 days Plan discussed with: Patient SHARLENE COX MD Oct 28, 2024 13:06
--- NOTE | 2024-10-28 13:34 | DVHPN2 ---
Progress Note Date Seen: Oct 28, 2024 Medical Necessity Reason Pt with a Central, PICC or Fol: Yes The following are medically ne: Swartz Catheter Reason for swartz catheter: Strict I&O Subjective Patient reports: Other Review of Systems: GI:Abnormal, Deferred Objective vital signs Vital Sign Date Time Temp Pulse Resp B/P (MAP) Pulse Ox O2 Delivery O2 Flow Rate FiO2 10/28/24 12:36 96.6 58 16 99/61 (74) 98 96.6 10/28/24 08:20 Nasal Cannula* 4 36 Total Intake and Output 10/27/24 10/27/24 10/28/24 14:59 22:59 06:59 Intake Total 620 ml 300 ml Output Total 300 ml 350 ml Balance 320 ml -50 ml medications Current Medications Medications Dose Ordered Sig/Leonard Route Start Time Stop Time Status Last Admin Dose Admin Atorvastatin Calcium 20 mg HS PO 10/21/24 22:00 10/27/24 22:00 20 MG Multivit/Ca Carb/ B Cmplx/FA/Prenat 1 tab DAILY PO 10/21/24 10:00 10/28/24 09:25 1 TAB Albuterol 2.5 mg Q4HPRN PRN NEB 10/20/24 23:30 10/22/24 08:30 2.5 MG Ondansetron HCl 4 mg Q4HP PRN IV 10/20/24 23:30 10/28/24 09:23 4 MG Docusate Sodium 100 mg BIDPRN PRN PO 10/20/24 23:30 Acetaminophen 650 mg Q6HP PRN PO 10/20/24 23:30 10/24/24 21:06 650 MG Nitroglycerin 0.4 mg Q5MINP PRN SL 10/20/24 23:30 Morphine Sulfate 2 mg Q30M PRN IV 10/20/24 23:30 Apixaban 5 mg BID PO 10/21/24 10:00 10/28/24 09:24 5 MG Midodrine 10 mg TID@0600,1200,1800 PO 10/21/24 06:00 10/28/24 11:55 10 MG Sodium Chloride 10 ml QSHIFT@10,22 IV 10/21/24 22:00 10/28/24 09:22 10 ML Oxycodone HCl 20 mg TIDPRN PRN PO 10/22/24 13:30 10/28/24 01:45 20 MG Amlodipine Besylate 5 mg DAILY PO 10/25/24 10:00 10/28/24 09:23 5 MG Aspirin 81 mg DAILY PO 10/25/24 10:00 10/28/24 09:24 81 MG Empaglifozin 10 mg DAILY PO 10/25/24 10:00 10/28/24 09:23 10 MG Furosemide 20 mg BID PO 10/24/24 22:00 10/28/24 09:24 20 MG Oxycodone HCl 20 mg BID PO 10/24/24 22:00 10/28/24 09:25 20 MG Artificial Tears 1 drop Q6HP PRN EACHEYE 10/26/24 13:15 10/27/24 20:46 1 DROP Amoxicillin/ Clavulanate Potassium 875 mg Q12HR PO 10/26/24 22:00 10/28/24 09:25 875 MG Famotidine 10 mg DAILY IV 10/27/24 10:00 10/28/24 09:23 10 MG Fluconazole 50 mg DAILY PO 10/27/24 10:00 10/28/24 09:24 50 MG Examination: GENERAL:Normal, LUNGS:Normal, MSK:Abnormal, SKIN:Normal, NEURO:Normal, :Abnormal laboratory and microbiology Laboratory Tests 10/26/24 05:55 10/23/24 03:00 Test 10/26/24 05:55 Range/Units Serum Glucose 117 H 74-106 mg/dL Microbiology Date/Time Source Procedure Growth Status 10/22/24 02:45 Urine - [place] Urine Culture - Final Enterococcus faecalis Complete 10/21/24 15:47 Blood Blood Culture - Final NO GROWTH AFTER 5 DAYS OF INCUBATION. Complete 10/21/24 15:44 Nose MRSA Screen - Final Complete Problem List/Assessment/Plan Problem List/Assessment/Plan 1) Hemodynamically mediated JULIANNA/VMN, prerenal state 2) CKD stage 3A 3) hyperkalemia possibly in setting of acute kidney injury, concurrent therapy with BEBO inhibition as outpatient with resultant hypo renin, hypoaldo state 4) toxic metabolic encephalopathy 5) history of hypertension s/p shock recs DC Bactrim given recent Acute kidney injury----consider alternatives if cultures warrant Downgraded from ICU hold lisinopril better renal function uop better Patient has chronic Swartz for several months outpatient follow-up with Urology for need of Swartz Labs pending Plan discussed with: Other My Orders My Orders Orders - CHIQUIS HUTCHINS MD Procedure Category Date Status Time Basic Metabolic Panel LAB 10/28/24 Verified 13:32 Dietary Evaluation Review Comments: 1) Initiate Nepro bid 2) If PO intake < 50%, consider EN/TPN to meet at least 75% of estimated needs 3) Refer to outpatient RD for weight management 4) Follow-up with cardiology, pulmonology, and nephrology 5) Continue to monitor I&O, labs, and skin integrity Expected Outcomes/Goals: 1) appetite and labs to improve 2) wounds to improve 3) f/u in 2-3 days CHIQUIS HUTCHINS MD Oct 28, 2024 13:34
--- NOTE | 2024-10-28 13:44 | DVHPN2 ---
Subjective Patient denies any symptoms at this time Reviewed: Care Plan, H&P, Labs, Medications, Previous Orders, Radiology Changes from previous H/P or p: No Changes General: Per HPI Eyes: No Pain, No Vision change, No Conjunctivae inflammation, No Eyelid inflammation, No Other, No Redness ENT: No Ear pain, No Ear discharge, No Nose pain, No Nose discharge, No Nose congestion, No Mouth pain, No Mouth swelling, No Throat pain, No Throat swelling, No Other Cardiovascular: No Chest Pain, No Palpitations, No Orthopnea, No Paroxysmal Noc. Dyspnea, No Edema, No Lt Headedness, No Other Respiratory: No Cough, No Dry, No Shortness of breath, No SOB with excertion, No Wheezing, No Hemoptysis, No Pleuritic Pain, No Sputum, No Other Gastrointestinal: No Nausea, No Vomiting, No Abdominal Pain, No Diarrhea, No Constipation, No Melena, No Hematochezia, No Other Genitourinary: No Dysuria, No Frequency, No Incontinence; Hematuria; No Retention; Other (Dark colored urine, Hutchinson catheter in place.) Musculoskeletal: No other, No neck pain, No shoulder pain, No arm pain, No back pain, No hand pain, No leg pain, No foot pain Skin: No Rash, No Lesions, No Jaundice, No Bruising, No Other Objective Vitals Vital Signs Date Time Temp Pulse Resp B/P (MAP) Pulse Ox O2 Delivery O2 Flow Rate FiO2 10/28/24 12:36 96.6 58 16 99/61 (74) 98 96.6 10/28/24 08:20 Nasal Cannula* 4 36 Intake/Output Intake and Output 10/28/24 07:00 Intake Total 920 ml Output Total 650 ml Balance 270 ml Intake Oral 920 ml Output Urine Total 650 ml General Appearance: Alert, Oriented X3, Cooperative, No acute distress HEENT: Atraumatic, PERRLA, EOMI, Mucous membr. moist/pink Neck: Supple Lungs: Clear to auscultation, Normal air movement Cardiovascular: Regular rate, Normal S1, Normal S2, No murmurs, Gallops, Rubs Abdomen: Normal bowel sounds, Soft, No tenderness Neuro: Normal gait, Normal speech, Cranial nerves 3-12 NL Skin: Dry, Intact Psych/Mental Status: Other (Alert awake) Medications Current Medications Medications Dose Ordered Sig/Leonard Route Start Time Stop Time Status Last Admin Dose Admin Atorvastatin Calcium 20 mg HS PO 10/21/24 22:00 10/27/24 22:00 20 MG Multivit/Ca Carb/ B Cmplx/FA/Prenat 1 tab DAILY PO 10/21/24 10:00 10/28/24 09:25 1 TAB Albuterol 2.5 mg Q4HPRN PRN NEB 10/20/24 23:30 10/22/24 08:30 2.5 MG Ondansetron HCl 4 mg Q4HP PRN IV 10/20/24 23:30 10/28/24 09:23 4 MG Docusate Sodium 100 mg BIDPRN PRN PO 10/20/24 23:30 Acetaminophen 650 mg Q6HP PRN PO 10/20/24 23:30 10/24/24 21:06 650 MG Nitroglycerin 0.4 mg Q5MINP PRN SL 10/20/24 23:30 Morphine Sulfate 2 mg Q30M PRN IV 10/20/24 23:30 Apixaban 5 mg BID PO 10/21/24 10:00 10/28/24 09:24 5 MG Midodrine 10 mg TID@0600,1200,1800 PO 10/21/24 06:00 10/28/24 11:55 10 MG Sodium Chloride 10 ml QSHIFT@10,22 IV 10/21/24 22:00 10/28/24 09:22 10 ML Oxycodone HCl 20 mg TIDPRN PRN PO 10/22/24 13:30 10/28/24 01:45 20 MG Amlodipine Besylate 5 mg DAILY PO 10/25/24 10:00 10/28/24 09:23 5 MG Aspirin 81 mg DAILY PO 10/25/24 10:00 10/28/24 09:24 81 MG Empaglifozin 10 mg DAILY PO 10/25/24 10:00 10/28/24 09:23 10 MG Furosemide 20 mg BID PO 10/24/24 22:00 10/28/24 09:24 20 MG Oxycodone HCl 20 mg BID PO 10/24/24 22:00 10/28/24 09:25 20 MG Artificial Tears 1 drop Q6HP PRN EACHEYE 10/26/24 13:15 10/27/24 20:46 1 DROP Amoxicillin/ Clavulanate Potassium 875 mg Q12HR PO 10/26/24 22:00 10/28/24 09:25 875 MG Famotidine 10 mg DAILY IV 10/27/24 10:00 10/28/24 09:23 10 MG Fluconazole 50 mg DAILY PO 10/27/24 10:00 10/28/24 09:24 50 MG Laboratory Results Laboratory Tests 10/23/24 03:00 10/26/24 05:55 Urinalysis Test 10/20/24 23:30 10/21/24 12:37 Urine Color Colorless (Yellow) Urine Clarity Clear (Clear) Urine pH 5.0 (5.0-9.0) Urine Specific [place] 1.009 (1.001-1.035) Urine Protein Negative (Negative) Urine Ketones Negative (Negative) Urine Blood 3+ /uL (Negative) H Urine Nitrite Negative (Negative) Urine Bilirubin Negative (Negative) Urine Urobilinogen Normal mg/dL (Negative) Urine Leukocyte Esterase Trace /uL (Negative) Urine RBC 91 /hpf (0 - 4) Urine Microscopic WBC 16 /HPF (0-5) H Urine Squamous Epithelial Cells None seen /hpf (<5) Urine Bacteria Few /hpf (None Seen) H Urine Yeast (Budding) Few /hpf (None Seen) Urine Glucose Normal mg/dL (Normal) Urine Creatinine 25.46 mg/dL (30.0-125.0) L Urine Sodium 84 mmol/L (40-220) Microbiology Microbiology Date/Time Source Procedure Growth Status 10/22/24 02:45 Urine - [place] Urine Culture - Final Enterococcus faecalis Complete 10/21/24 15:47 Blood Blood Culture - Final NO GROWTH AFTER 5 DAYS OF INCUBATION. Complete 10/21/24 15:44 Nose MRSA Screen - Final Complete Labs and/or images reviewed: Labs reviewed by me, Image(s) reviewed by me Assessment/Plan Assessment/Plan Impression: -probable hypovolemic shock -acute kidney injury, vasomotor nephropathy -complicated cystitis -ER metabolic encephalopathy -acute on chronic diastolic heart failure, half Azul -obesity -deconditioning with bed-bound status -dyslipidemia Plan: Events: Events overnight. Reports to be able to stand with PT and take small steps -Repeat labs, urine culture -continue Diflucan and Rocephin -physical therapy -pain management -PUD prophylaxis -continue anticoagulation Total time spent with patient discussing and formulating plan of care: 35 minutes. This medical document was created using an electronic medical record system with [employer] dictation system. Although this document has been carefully reviewed, there may still be some phonetic and typographical errors. These areas are purely typographical due to imperfections of the software programs, and do not reflect any compromise in the patient's medical care. Plan discussed with: Patient, Other (RN) My Orders Orders - KLAUS ZAMORANO NP Procedure Category Date Status Time Basic Metabolic Panel LAB 10/28/24 Logged 13:12 Magnesium LAB 10/28/24 Logged 13:12 Urine Bacterial ANILA 10/28/24 Logged Culture 13:12 Date of Service: Oct 28, 2024 Billing Provider: KLAUS ZAMORANO NP Common Visit Codes: [id number] INP/OBS CARE(HIGH) KLAUS ZAMORANO NP Oct 28, 2024 13:44
[2024-10-28 15:59] LABS: Anion Gap 9 (5-15); Calcium 8.9 mg/dL (8.7-10.4); Carbon Dioxide 28 mmol/L (20-31); Chloride 103 mmol/L (98-107); Potassium 4.2 mmol/L (3.5-5.1); Sodium 140 mmol/L (136-145)
[2024-10-28 16:05] LABS: BUN/Creatinine Ratio 21.8 (10.0-20.0)
[2024-10-28 16:12] LABS: Blood Urea Nitrogen 26 mg/dL (9-23); Glucose 108 mg/dL (74-106); Magnesium 1.4 mg/dL (1.6-2.6)
[2024-10-29] VITALS (9 sets, daily range): BP systolic 103–130; BP diastolic 56–85; PULSE 58–98; RESP 18; TEMP 96.9–98.3; O2SAT 94–98
--- NOTE | 2024-10-29 08:07 | DVHPN2 ---
Progress Note Date Seen: Oct 29, 2024 Medical Necessity Reason Pt with a Central, PICC or Fol: Yes The following are medically ne: Swartz Catheter Reason for swartz catheter: Strict I&O Subjective Patient reports: No new complaints Review of Systems: Deferred Objective vital signs Vital Sign Date Time Temp Pulse Resp B/P (MAP) Pulse Ox O2 Delivery O2 Flow Rate FiO2 10/29/24 05:00 96.9 58 18 104/71 (82) 97 96.9 10/28/24 20:00 Nasal Cannula* 4 36 Total Intake and Output 10/28/24 10/28/24 10/29/24 15:00 23:00 07:00 Intake Total 620 ml 680 ml Output Total 225 ml 350 ml Balance 395 ml 330 ml medications Current Medications Medications Dose Ordered Sig/Leonard Route Start Time Stop Time Status Last Admin Dose Admin Atorvastatin Calcium 20 mg HS PO 10/21/24 22:00 10/28/24 22:12 20 MG Multivit/Ca Carb/ B Cmplx/FA/Prenat 1 tab DAILY PO 10/21/24 10:00 10/28/24 09:25 1 TAB Albuterol 2.5 mg Q4HPRN PRN NEB 10/20/24 23:30 10/22/24 08:30 2.5 MG Ondansetron HCl 4 mg Q4HP PRN IV 10/20/24 23:30 10/29/24 06:37 4 MG Docusate Sodium 100 mg BIDPRN PRN PO 10/20/24 23:30 Acetaminophen 650 mg Q6HP PRN PO 10/20/24 23:30 10/24/24 21:06 650 MG Nitroglycerin 0.4 mg Q5MINP PRN SL 10/20/24 23:30 Morphine Sulfate 2 mg Q30M PRN IV 10/20/24 23:30 Apixaban 5 mg BID PO 10/21/24 10:00 10/28/24 22:11 5 MG Midodrine 10 mg TID@0600,1200,1800 PO 10/21/24 06:00 10/29/24 06:37 10 MG Sodium Chloride 10 ml QSHIFT@10,22 IV 10/21/24 22:00 10/28/24 22:11 10 ML Oxycodone HCl 20 mg TIDPRN PRN PO 10/22/24 13:30 10/29/24 06:38 20 MG Amlodipine Besylate 5 mg DAILY PO 10/25/24 10:00 10/28/24 09:23 5 MG Aspirin 81 mg DAILY PO 10/25/24 10:00 10/28/24 09:24 81 MG Empaglifozin 10 mg DAILY PO 10/25/24 10:00 10/28/24 09:23 10 MG Furosemide 20 mg BID PO 10/24/24 22:00 10/28/24 22:11 20 MG Oxycodone HCl 20 mg BID PO 10/24/24 22:00 10/28/24 22:13 20 MG Artificial Tears 1 drop Q6HP PRN EACHEYE 10/26/24 13:15 10/28/24 22:13 1 DROP Amoxicillin/ Clavulanate Potassium 875 mg Q12HR PO 10/26/24 22:00 10/28/24 22:11 875 MG Famotidine 10 mg DAILY IV 10/27/24 10:00 10/28/24 09:23 10 MG Fluconazole 50 mg DAILY PO 10/27/24 10:00 10/28/24 09:24 50 MG Examination: GENERAL:Normal, MSK:Abnormal, NEURO:Normal laboratory and microbiology Laboratory Tests 10/28/24 15:33 10/23/24 03:00 Test 10/28/24 15:33 Range/Units Serum Glucose 108 H 74-106 mg/dL Microbiology Date/Time Source Procedure Growth Status 10/22/24 02:45 Urine - [place] Urine Culture - Final Enterococcus faecalis Complete 10/21/24 15:47 Blood Blood Culture - Final NO GROWTH AFTER 5 DAYS OF INCUBATION. Complete 10/21/24 15:44 Nose MRSA Screen - Final Complete Problem List/Assessment/Plan Problem List/Assessment/Plan 1) Hemodynamically mediated JULIANNA/VMN, prerenal state 2) CKD stage 3A 3) hyperkalemia possibly in setting of acute kidney injury, concurrent therapy with BEBO inhibition as outpatient with resultant hypo renin, hypoaldo state 4) toxic metabolic encephalopathy 5) history of hypertension s/p shock recs stable renal function i will sign off this case Plan discussed with: Patient Dietary Evaluation Review Comments: 1) Initiate Nepro bid 2) If PO intake < 50%, consider EN/TPN to meet at least 75% of estimated needs 3) Refer to outpatient RD for weight management 4) Follow-up with cardiology, pulmonology, and nephrology 5) Continue to monitor I&O, labs, and skin integrity Expected Outcomes/Goals: 1) appetite and labs to improve 2) wounds to improve 3) f/u in 2-3 days CHIQUIS HUTCHINS MD Oct 29, 2024 08:07
--- NOTE | 2024-10-29 12:41 | DVHPN2 ---
Progress Note - Dictate Date Seen: Oct 29, 2024 Medical Necessity Reason Pt with a Central, PICC or Fol: Yes The following are medically ne: Swartz Catheter Reason for swartz catheter: Strict I&O vital signs Vital Sign Date Time Temp Pulse Resp B/P (MAP) Pulse Ox O2 Delivery O2 Flow Rate FiO2 10/29/24 10:11 94 Nasal Cannula* 2 28 10/29/24 09:52 106/56 10/29/24 09:30 98.1 90 18 98.1 Total Intake and Output 10/28/24 10/28/24 10/29/24 15:00 23:00 07:00 Intake Total 620 ml 680 ml Output Total 225 ml 350 ml Balance 395 ml 330 ml medications Current Medications Medications Dose Ordered Sig/Leonard Route Start Time Stop Time Status Last Admin Dose Admin Atorvastatin Calcium 20 mg HS PO 10/21/24 22:00 10/28/24 22:12 20 MG Multivit/Ca Carb/ B Cmplx/FA/Prenat 1 tab DAILY PO 10/21/24 10:00 10/29/24 09:51 1 TAB Ondansetron HCl 4 mg Q4HP PRN IV 10/20/24 23:30 10/29/24 06:37 4 MG Docusate Sodium 100 mg BIDPRN PRN PO 10/20/24 23:30 Acetaminophen 650 mg Q6HP PRN PO 10/20/24 23:30 10/24/24 21:06 650 MG Nitroglycerin 0.4 mg Q5MINP PRN SL 10/20/24 23:30 Morphine Sulfate 2 mg Q30M PRN IV 10/20/24 23:30 Apixaban 5 mg BID PO 10/21/24 10:00 10/29/24 09:51 5 MG Midodrine 10 mg TID@0600,1200,1800 PO 10/21/24 06:00 10/29/24 06:37 10 MG Sodium Chloride 10 ml QSHIFT@10,22 IV 10/21/24 22:00 10/29/24 09:51 10 ML Oxycodone HCl 20 mg TIDPRN PRN PO 10/22/24 13:30 10/29/24 06:38 20 MG Amlodipine Besylate 5 mg DAILY PO 10/25/24 10:00 10/29/24 09:52 5 MG Aspirin 81 mg DAILY PO 10/25/24 10:00 10/29/24 09:52 81 MG Empaglifozin 10 mg DAILY PO 10/25/24 10:00 10/29/24 09:52 10 MG Furosemide 20 mg BID PO 10/24/24 22:00 10/29/24 09:52 20 MG Oxycodone HCl 20 mg BID PO 10/24/24 22:00 10/28/24 22:13 20 MG Artificial Tears 1 drop Q6HP PRN EACHEYE 10/26/24 13:15 10/28/24 22:13 1 DROP Amoxicillin/ Clavulanate Potassium 875 mg Q12HR PO 10/26/24 22:00 10/29/24 09:51 875 MG Famotidine 10 mg DAILY IV 10/27/24 10:00 10/29/24 09:51 10 MG Fluconazole 50 mg DAILY PO 10/27/24 10:00 10/29/24 10:06 50 MG Magnesium Sulfate/ Dextrose 100 ml @ 100 mls/hr Q1HR IV 10/29/24 12:00 10/29/24 13:59 UNV Sennosides 8.6 mg QHSP PRN PO 10/29/24 12:00 UNV laboratory and microbiology Laboratory Tests 10/28/24 15:33 10/23/24 03:00 Test 10/28/24 15:33 Range/Units Serum Glucose 108 H 74-106 mg/dL Assessment/Plan Impression Acute hypoxic respiratory failure Dependence on supplemental oxygen Urinary tract infection Septic shock Cellulitis Acute metabolic encephalopathy Super morbid obesity, BMI 54.7 Events: Low oxygen requirements On 2 LPM NC No acute events Management Continue antibiotics Continue antifungal Incentive spirometry Midodrine for blood pressure support Pain control - on home pain medication regimen Oxycodone q.8 hours PRN Avoid oversedation Pepcid for GI ppx Patient is stable for discharge from the pulmonary standpoint. Dietary Evaluation Review Comments: 1) Initiate Nepro bid 2) If PO intake < 50%, consider EN/TPN to meet at least 75% of estimated needs 3) Refer to outpatient RD for weight management 4) Follow-up with cardiology, pulmonology, and nephrology 5) Continue to monitor I&O, labs, and skin integrity Expected Outcomes/Goals: 1) appetite and labs to improve 2) wounds to improve 3) f/u in 2-3 days Plan discussed with: Patient SHARLENE COX MD Oct 29, 2024 12:41
--- NOTE | 2024-10-29 13:20 | DVHPN2 ---
Subjective Patient denies any symptoms at this time Reviewed: Care Plan, H&P, Labs, Medications, Previous Orders, Radiology Changes from previous H/P or p: No Changes General: Per HPI Eyes: No Pain, No Vision change, No Conjunctivae inflammation, No Eyelid inflammation, No Other, No Redness ENT: No Ear pain, No Ear discharge, No Nose pain, No Nose discharge, No Nose congestion, No Mouth pain, No Mouth swelling, No Throat pain, No Throat swelling, No Other Cardiovascular: No Chest Pain, No Palpitations, No Orthopnea, No Paroxysmal Noc. Dyspnea, No Edema, No Lt Headedness, No Other Respiratory: No Cough, No Dry, No Shortness of breath, No SOB with excertion, No Wheezing, No Hemoptysis, No Pleuritic Pain, No Sputum, No Other Gastrointestinal: No Nausea, No Vomiting, No Abdominal Pain, No Diarrhea, No Constipation, No Melena, No Hematochezia, No Other Genitourinary: No Dysuria, No Frequency, No Incontinence; Hematuria; No Retention; Other (Dark colored urine, Hutchinson catheter in place.) Musculoskeletal: No other, No neck pain, No shoulder pain, No arm pain, No back pain, No hand pain, No leg pain, No foot pain Skin: No Rash, No Lesions, No Jaundice, No Bruising, No Other Objective Vitals Vital Signs Date Time Temp Pulse Resp B/P (MAP) Pulse Ox O2 Delivery O2 Flow Rate FiO2 10/29/24 10:11 94 Nasal Cannula* 2 28 10/29/24 09:52 106/56 10/29/24 09:30 98.1 90 18 98.1 Intake/Output Intake and Output 10/29/24 07:00 Intake Total 1300 ml Output Total 575 ml Balance 725 ml Intake Oral 1300 ml Output Urine Total 575 ml General Appearance: Alert, Oriented X3, Cooperative, No acute distress HEENT: Atraumatic, PERRLA, EOMI, Mucous membr. moist/pink Neck: Supple Lungs: Clear to auscultation, Normal air movement Cardiovascular: Regular rate, Normal S1, Normal S2, No murmurs, Gallops, Rubs Abdomen: Normal bowel sounds, Soft, No tenderness Neuro: Normal gait, Normal speech, Cranial nerves 3-12 NL Skin: Dry, Intact Psych/Mental Status: Other (Alert awake) Medications Current Medications Medications Dose Ordered Sig/Leonard Route Start Time Stop Time Status Last Admin Dose Admin Atorvastatin Calcium 20 mg HS PO 10/21/24 22:00 10/28/24 22:12 20 MG Multivit/Ca Carb/ B Cmplx/FA/Prenat 1 tab DAILY PO 10/21/24 10:00 10/29/24 09:51 1 TAB Ondansetron HCl 4 mg Q4HP PRN IV 10/20/24 23:30 10/29/24 06:37 4 MG Docusate Sodium 100 mg BIDPRN PRN PO 10/20/24 23:30 Acetaminophen 650 mg Q6HP PRN PO 10/20/24 23:30 10/24/24 21:06 650 MG Nitroglycerin 0.4 mg Q5MINP PRN SL 10/20/24 23:30 Morphine Sulfate 2 mg Q30M PRN IV 10/20/24 23:30 Apixaban 5 mg BID PO 10/21/24 10:00 10/29/24 09:51 5 MG Midodrine 10 mg TID@0600,1200,1800 PO 10/21/24 06:00 10/29/24 06:37 10 MG Sodium Chloride 10 ml QSHIFT@10,22 IV 10/21/24 22:00 10/29/24 09:51 10 ML Oxycodone HCl 20 mg TIDPRN PRN PO 10/22/24 13:30 10/29/24 06:38 20 MG Amlodipine Besylate 5 mg DAILY PO 10/25/24 10:00 10/29/24 09:52 5 MG Aspirin 81 mg DAILY PO 10/25/24 10:00 10/29/24 09:52 81 MG Empaglifozin 10 mg DAILY PO 10/25/24 10:00 10/29/24 09:52 10 MG Furosemide 20 mg BID PO 10/24/24 22:00 10/29/24 09:52 20 MG Oxycodone HCl 20 mg BID PO 10/24/24 22:00 10/28/24 22:13 20 MG Artificial Tears 1 drop Q6HP PRN EACHEYE 10/26/24 13:15 10/28/24 22:13 1 DROP Amoxicillin/ Clavulanate Potassium 875 mg Q12HR PO 10/26/24 22:00 10/29/24 09:51 875 MG Famotidine 10 mg DAILY IV 10/27/24 10:00 10/29/24 09:51 10 MG Fluconazole 50 mg DAILY PO 10/27/24 10:00 10/29/24 10:06 50 MG Magnesium Sulfate/ Dextrose 100 ml @ 100 mls/hr Q1HR IV 10/29/24 12:00 10/29/24 13:59 Sennosides 8.6 mg QHSP PRN PO 10/29/24 12:00 Laboratory Results Laboratory Tests 10/23/24 03:00 10/28/24 15:33 Chemistry Test 10/28/24 15:33 Calcium Level 8.9 mg/dL (8.7-10.4) Magnesium Level 1.4 mg/dL (1.6-2.6) L Urinalysis Test 10/20/24 23:30 10/21/24 12:37 Urine Color Colorless (Yellow) Urine Clarity Clear (Clear) Urine pH 5.0 (5.0-9.0) Urine Specific [place] 1.009 (1.001-1.035) Urine Protein Negative (Negative) Urine Ketones Negative (Negative) Urine Blood 3+ /uL (Negative) H Urine Nitrite Negative (Negative) Urine Bilirubin Negative (Negative) Urine Urobilinogen Normal mg/dL (Negative) Urine Leukocyte Esterase Trace /uL (Negative) Urine RBC 91 /hpf (0 - 4) Urine Microscopic WBC 16 /HPF (0-5) H Urine Squamous Epithelial Cells None seen /hpf (<5) Urine Bacteria Few /hpf (None Seen) H Urine Yeast (Budding) Few /hpf (None Seen) Urine Glucose Normal mg/dL (Normal) Urine Creatinine 25.46 mg/dL (30.0-125.0) L Urine Sodium 84 mmol/L (40-220) Microbiology Microbiology Date/Time Source Procedure Growth Status 10/28/24 15:26 Urine - [place] Urine Culture - Preliminary Resulted 10/21/24 15:47 Blood Blood Culture - Final NO GROWTH AFTER 5 DAYS OF INCUBATION. Complete 10/21/24 15:44 Nose MRSA Screen - Final Complete Labs and/or images reviewed: Labs reviewed by me, Image(s) reviewed by me Assessment/Plan Assessment/Plan Impression: -probable hypovolemic shock -acute kidney injury, vasomotor nephropathy -complicated cystitis -ER metabolic encephalopathy -acute on chronic diastolic heart failure, half Azul -obesity -deconditioning with bed-bound status -dyslipidemia Plan: Events: Patient now reports having left shoulder pain with decreased range of motion. Also reports having persistent constipation. -bowel regimen with Colace and senna -left shoulder x-ray -Repeat labs, urine culture -continue Diflucan and Rocephin -physical therapy -pain management -PUD prophylaxis -continue anticoagulation -social service consultation for discharge planning to SNF versus returned to hospice services. Total time spent with patient discussing and formulating plan of care: 35 minutes. This medical document was created using an electronic medical record system with [employer] dictation system. Although this document has been carefully reviewed, there may still be some phonetic and typographical errors. These areas are purely typographical due to imperfections of the software programs, and do not reflect any compromise in the patient's medical care. Plan discussed with: Patient, Other (RN) My Orders Orders - KLAUS ZAMORANO NP Procedure Category Date Status Time Magnesium Sulfate PHA 10/29/24 In Process 1gm/100ml 12:00 Senna Pod Tablet PHA 10/29/24 In Process (Senokot Tablet) 12:00 L Shoulder 2+ View XY 10/29/24 Taken Xray 12:00 Date of Service: Oct 29, 2024 Billing Provider: KLAUS ZAMORANO NP Common Visit Codes: [id number] INP/OBS CARE(HIGH) KLAUS ZAMORANO NP Oct 29, 2024 13:20
[2024-10-29] MEDS: MAGNESIUM SULFATE 1GM/100ML 100 ML IV SCH (13:24)
[2024-10-29] MEDS: SENNA 8.6 MG TAB PO ONE (13:25)
--- NOTE | 2024-10-29 14:18 | DVH ---
CLINICAL INDICATION: left shoulder pain TECHNIQUE: 2 radiographic views of the left shoulder were obtained. Comparison: None FINDINGS/IMPRESSION: Fractures or dislocations. PICC line is in place from the left shoulder tip is not visualized. Acromioclavicular joint appears normal Visualized portions of the left clavicle show no fracture.
[2024-10-29] MEDS: SENNA 8.6 MG TAB PO PRN (22:36)
[2024-10-30] VITALS (8 sets, daily range): BP systolic 100–116; BP diastolic 51–88; PULSE 62–105; RESP 15–18; TEMP 96.1–98.4; O2SAT 94–98
--- NOTE | 2024-10-30 13:14 | DVHPN2 ---
Subjective Patient denies any symptoms at this time Reviewed: Care Plan, H&P, Labs, Medications, Previous Orders, Radiology Changes from previous H/P or p: No Changes General: Per HPI Eyes: No Pain, No Vision change, No Conjunctivae inflammation, No Eyelid inflammation, No Other, No Redness ENT: No Ear pain, No Ear discharge, No Nose pain, No Nose discharge, No Nose congestion, No Mouth pain, No Mouth swelling, No Throat pain, No Throat swelling, No Other Cardiovascular: No Chest Pain, No Palpitations, No Orthopnea, No Paroxysmal Noc. Dyspnea, No Edema, No Lt Headedness, No Other Respiratory: No Cough, No Dry, No Shortness of breath, No SOB with excertion, No Wheezing, No Hemoptysis, No Pleuritic Pain, No Sputum, No Other Gastrointestinal: No Nausea, No Vomiting, No Abdominal Pain, No Diarrhea, No Constipation, No Melena, No Hematochezia, No Other Genitourinary: No Dysuria, No Frequency, No Incontinence; Hematuria; No Retention; Other (Dark colored urine, Hutchinson catheter in place.) Musculoskeletal: No other, No neck pain, No shoulder pain, No arm pain, No back pain, No hand pain, No leg pain, No foot pain Skin: No Rash, No Lesions, No Jaundice, No Bruising, No Other Objective Vitals Vital Signs Date Time Temp Pulse Resp B/P (MAP) Pulse Ox O2 Delivery O2 Flow Rate FiO2 10/30/24 09:41 126/63 10/30/24 09:00 98.4 79 16 97 98.4 10/30/24 08:00 Nasal Cannula* 4 36 Intake/Output Intake and Output 10/30/24 07:00 Intake Total 1600 ml Output Total 700 ml Balance 900 ml Intake Oral 1500 ml IV Total 100 ml Output Urine Total 700 ml # Bowel Movements 1 General Appearance: Alert, Oriented X3, Cooperative, No acute distress HEENT: Atraumatic, PERRLA, EOMI, Mucous membr. moist/pink Neck: Supple Lungs: Clear to auscultation, Normal air movement Cardiovascular: Regular rate, Normal S1, Normal S2, No murmurs, Gallops, Rubs Abdomen: Normal bowel sounds, Soft, No tenderness Neuro: Normal gait, Normal speech, Cranial nerves 3-12 NL Skin: Dry, Intact Psych/Mental Status: Other (Alert awake) Medications Current Medications Medications Dose Ordered Sig/Leonard Route Start Time Stop Time Status Last Admin Dose Admin Atorvastatin Calcium 20 mg HS PO 10/21/24 22:00 10/29/24 22:36 20 MG Multivit/Ca Carb/ B Cmplx/FA/Prenat 1 tab DAILY PO 10/21/24 10:00 10/30/24 09:40 1 TAB Ondansetron HCl 4 mg Q4HP PRN IV 10/20/24 23:30 10/30/24 12:02 4 MG Docusate Sodium 100 mg BIDPRN PRN PO 10/20/24 23:30 Acetaminophen 650 mg Q6HP PRN PO 10/20/24 23:30 10/24/24 21:06 650 MG Nitroglycerin 0.4 mg Q5MINP PRN SL 10/20/24 23:30 Morphine Sulfate 2 mg Q30M PRN IV 10/20/24 23:30 Apixaban 5 mg BID PO 10/21/24 10:00 10/30/24 09:41 5 MG Midodrine 10 mg TID@0600,1200,1800 PO 10/21/24 06:00 10/30/24 12:02 10 MG Sodium Chloride 10 ml QSHIFT@10,22 IV 10/21/24 22:00 10/30/24 09:39 10 ML Oxycodone HCl 20 mg TIDPRN PRN PO 10/22/24 13:30 10/30/24 05:59 20 MG Amlodipine Besylate 5 mg DAILY PO 10/25/24 10:00 10/30/24 09:40 5 MG Aspirin 81 mg DAILY PO 10/25/24 10:00 10/30/24 09:41 81 MG Empaglifozin 10 mg DAILY PO 10/25/24 10:00 10/30/24 09:41 10 MG Furosemide 20 mg BID PO 10/24/24 22:00 10/30/24 09:41 20 MG Oxycodone HCl 20 mg BID PO 10/24/24 22:00 10/30/24 12:02 20 MG Artificial Tears 1 drop Q6HP PRN EACHEYE 10/26/24 13:15 10/29/24 22:33 1 DROP Amoxicillin/ Clavulanate Potassium 875 mg Q12HR PO 10/26/24 22:00 10/30/24 09:41 875 MG Famotidine 10 mg DAILY IV 10/27/24 10:00 10/30/24 09:42 10 MG Fluconazole 50 mg DAILY PO 10/27/24 10:00 10/30/24 09:41 50 MG Sennosides 8.6 mg QHSP PRN PO 10/29/24 12:00 10/29/24 22:36 8.6 MG Laboratory Results Laboratory Tests 10/23/24 03:00 10/28/24 15:33 Urinalysis Test 10/20/24 23:30 10/21/24 12:37 Urine Color Colorless (Yellow) Urine Clarity Clear (Clear) Urine pH 5.0 (5.0-9.0) Urine Specific [place] 1.009 (1.001-1.035) Urine Protein Negative (Negative) Urine Ketones Negative (Negative) Urine Blood 3+ /uL (Negative) H Urine Nitrite Negative (Negative) Urine Bilirubin Negative (Negative) Urine Urobilinogen Normal mg/dL (Negative) Urine Leukocyte Esterase Trace /uL (Negative) Urine RBC 91 /hpf (0 - 4) Urine Microscopic WBC 16 /HPF (0-5) H Urine Squamous Epithelial Cells None seen /hpf (<5) Urine Bacteria Few /hpf (None Seen) H Urine Yeast (Budding) Few /hpf (None Seen) Urine Glucose Normal mg/dL (Normal) Urine Creatinine 25.46 mg/dL (30.0-125.0) L Urine Sodium 84 mmol/L (40-220) Microbiology Microbiology Date/Time Source Procedure Growth Status 10/28/24 15:26 Urine - [place] Urine Culture - Preliminary Resulted 10/21/24 15:47 Blood Blood Culture - Final NO GROWTH AFTER 5 DAYS OF INCUBATION. Complete 10/21/24 15:44 Nose MRSA Screen - Final Complete Labs and/or images reviewed: Labs reviewed by me, Image(s) reviewed by me Assessment/Plan Assessment/Plan Impression: -probable hypovolemic shock -acute kidney injury, vasomotor nephropathy -complicated cystitis -ER metabolic encephalopathy -acute on chronic diastolic heart failure, half Azul -obesity -deconditioning with bed-bound status -dyslipidemia Plan: Events: Left shoulder x-ray without any subluxation or fracture. Discussed with the patient. Continue physical therapy. Discussed plan of care with social media editor. Reassess for discharge tomorrow with hospice -bowel regimen with Colace and senna -left shoulder x-ray -Repeat labs, urine culture -continue Diflucan and Rocephin -physical therapy -pain management -PUD prophylaxis -continue anticoagulation Total time spent with patient discussing and formulating plan of care: 35 minutes. This medical document was created using an electronic medical record system with [employer] dictation system. Although this document has been carefully reviewed, there may still be some phonetic and typographical errors. These areas are purely typographical due to imperfections of the software programs, and do not reflect any compromise in the patient's medical care. Plan discussed with: Patient, Other (RN) Date of Service: Oct 30, 2024 Billing Provider: KLAUS ZAMORANO NP Common Visit Codes: [id number] INP/OBS CARE(HIGH) KLAUS ZAMORANO NP Oct 30, 2024 13:14
--- NOTE | 2024-10-30 18:22 | DVHPN2 ---
Progress Note - Dictate Date Seen: Oct 30, 2024 Medical Necessity Reason Pt with a Central, PICC or Fol: Yes The following are medically ne: Swartz Catheter Reason for swartz catheter: Strict I&O vital signs Vital Sign Date Time Temp Pulse Resp B/P (MAP) Pulse Ox O2 Delivery O2 Flow Rate FiO2 10/30/24 17:08 98.0 105 18 102/51 (68) 95 98.0 10/30/24 08:00 Nasal Cannula* 4 36 Total Intake and Output 10/29/24 10/29/24 10/30/24 15:00 23:00 07:00 Intake Total 100 ml 700 ml 800 ml Output Total 400 ml 300 ml Balance 100 ml 300 ml 500 ml medications Current Medications Medications Dose Ordered Sig/Leonard Route Start Time Stop Time Status Last Admin Dose Admin Atorvastatin Calcium 20 mg HS PO 10/21/24 22:00 10/29/24 22:36 20 MG Multivit/Ca Carb/ B Cmplx/FA/Prenat 1 tab DAILY PO 10/21/24 10:00 10/30/24 09:40 1 TAB Ondansetron HCl 4 mg Q4HP PRN IV 10/20/24 23:30 10/30/24 18:06 4 MG Docusate Sodium 100 mg BIDPRN PRN PO 10/20/24 23:30 Acetaminophen 650 mg Q6HP PRN PO 10/20/24 23:30 10/24/24 21:06 650 MG Nitroglycerin 0.4 mg Q5MINP PRN SL 10/20/24 23:30 Morphine Sulfate 2 mg Q30M PRN IV 10/20/24 23:30 Apixaban 5 mg BID PO 10/21/24 10:00 10/30/24 09:41 5 MG Midodrine 10 mg TID@0600,1200,1800 PO 10/21/24 06:00 10/30/24 18:06 10 MG Sodium Chloride 10 ml QSHIFT@10,22 IV 10/21/24 22:00 10/30/24 09:39 10 ML Oxycodone HCl 20 mg TIDPRN PRN PO 10/22/24 13:30 10/30/24 05:59 20 MG Amlodipine Besylate 5 mg DAILY PO 10/25/24 10:00 10/30/24 09:40 5 MG Aspirin 81 mg DAILY PO 10/25/24 10:00 10/30/24 09:41 81 MG Empaglifozin 10 mg DAILY PO 10/25/24 10:00 10/30/24 09:41 10 MG Furosemide 20 mg BID PO 10/24/24 22:00 10/30/24 09:41 20 MG Oxycodone HCl 20 mg BID PO 10/24/24 22:00 10/30/24 18:06 20 MG Artificial Tears 1 drop Q6HP PRN EACHEYE 10/26/24 13:15 10/29/24 22:33 1 DROP Amoxicillin/ Clavulanate Potassium 875 mg Q12HR PO 10/26/24 22:00 10/30/24 09:41 875 MG Famotidine 10 mg DAILY IV 10/27/24 10:00 10/30/24 09:42 10 MG Fluconazole 50 mg DAILY PO 10/27/24 10:00 10/30/24 09:41 50 MG Sennosides 8.6 mg QHSP PRN PO 10/29/24 12:00 10/29/24 22:36 8.6 MG laboratory and microbiology Laboratory Tests 10/28/24 15:33 10/23/24 03:00 Test 10/28/24 15:33 Range/Units Serum Glucose 108 H 74-106 mg/dL Assessment/Plan Impression Acute hypoxic respiratory failure Dependence on supplemental oxygen Urinary tract infection Septic shock Cellulitis Acute metabolic encephalopathy Morbid obesity Events: Low oxygen requirements On 2 LPM NC No distress Management Continue antibiotics Continue antifungal Incentive spirometry Midodrine for blood pressure support Pain control - on home pain medication regimen Oxycodone q.8 hours PRN Avoid oversedation Pepcid for GI ppx Patient is stable for discharge from the pulmonary standpoint. Dietary Evaluation Review Comments: 1) Initiate Nepro bid 2) If PO intake < 50%, consider EN/TPN to meet at least 75% of estimated needs 3) Refer to outpatient RD for weight management 4) Follow-up with cardiology, pulmonology, and nephrology 5) Continue to monitor I&O, labs, and skin integrity Expected Outcomes/Goals: 1) appetite and labs to improve 2) wounds to improve 3) f/u in 2-3 days Plan discussed with: Patient SHARLENE COX MD Oct 30, 2024 18:22
[2024-10-31] VITALS (8 sets, daily range): BP systolic 100–131; BP diastolic 61–87; PULSE 67–126; RESP 14–18; TEMP 95.2–98.2; O2SAT 94–98
--- NOTE | 2024-10-31 14:12 | DVHPN2 ---
Subjective Patient denies any symptoms at this time Reviewed: Care Plan, H&P, Labs, Medications, Previous Orders, Radiology Changes from previous H/P or p: No Changes General: Per HPI Eyes: No Pain, No Vision change, No Conjunctivae inflammation, No Eyelid inflammation, No Other, No Redness ENT: No Ear pain, No Ear discharge, No Nose pain, No Nose discharge, No Nose congestion, No Mouth pain, No Mouth swelling, No Throat pain, No Throat swelling, No Other Cardiovascular: No Chest Pain, No Palpitations, No Orthopnea, No Paroxysmal Noc. Dyspnea, No Edema, No Lt Headedness, No Other Respiratory: No Cough, No Dry, No Shortness of breath, No SOB with excertion, No Wheezing, No Hemoptysis, No Pleuritic Pain, No Sputum, No Other Gastrointestinal: No Nausea, No Vomiting, No Abdominal Pain, No Diarrhea, No Constipation, No Melena, No Hematochezia, No Other Genitourinary: No Dysuria, No Frequency, No Incontinence; Hematuria; No Retention; Other (Dark colored urine, Hutchinson catheter in place.) Musculoskeletal: No other, No neck pain, No shoulder pain, No arm pain, No back pain, No hand pain, No leg pain, No foot pain Skin: No Rash, No Lesions, No Jaundice, No Bruising, No Other Objective Vitals Vital Signs Date Time Temp Pulse Resp B/P (MAP) Pulse Ox O2 Delivery O2 Flow Rate FiO2 10/31/24 12:59 98.2 126 18 125/83 (97) 97 98.2 10/31/24 08:00 Nasal Cannula* 4 36 Intake/Output Intake and Output 10/31/24 07:00 Intake Total 1500 ml Output Total 700 ml Balance 800 ml Intake Oral 1500 ml Output Urine Total 700 ml # Voids 1 # Bowel Movements 1 General Appearance: Alert, Oriented X3, Cooperative, No acute distress HEENT: Atraumatic, PERRLA, EOMI, Mucous membr. moist/pink Neck: Supple Lungs: Clear to auscultation, Normal air movement Cardiovascular: Regular rate, Normal S1, Normal S2, No murmurs, Gallops, Rubs Abdomen: Normal bowel sounds, Soft, No tenderness Neuro: Normal gait, Normal speech, Cranial nerves 3-12 NL Skin: Dry, Intact Psych/Mental Status: Other (Alert awake) Medications Current Medications Medications Dose Ordered Sig/Leonard Route Start Time Stop Time Status Last Admin Dose Admin Atorvastatin Calcium 20 mg HS PO 10/21/24 22:00 10/30/24 21:19 20 MG Multivit/Ca Carb/ B Cmplx/FA/Prenat 1 tab DAILY PO 10/21/24 10:00 10/31/24 09:31 1 TAB Ondansetron HCl 4 mg Q4HP PRN IV 10/20/24 23:30 10/31/24 13:50 4 MG Docusate Sodium 100 mg BIDPRN PRN PO 10/20/24 23:30 Acetaminophen 650 mg Q6HP PRN PO 10/20/24 23:30 10/24/24 21:06 650 MG Nitroglycerin 0.4 mg Q5MINP PRN SL 10/20/24 23:30 Morphine Sulfate 2 mg Q30M PRN IV 10/20/24 23:30 Apixaban 5 mg BID PO 10/21/24 10:00 10/31/24 09:31 5 MG Midodrine 10 mg TID@0600,1200,1800 PO 10/21/24 06:00 10/31/24 11:54 10 MG Sodium Chloride 10 ml QSHIFT@10,22 IV 10/21/24 22:00 10/31/24 09:33 10 ML Oxycodone HCl 20 mg TIDPRN PRN PO 10/22/24 13:30 10/31/24 13:50 20 MG Amlodipine Besylate 5 mg DAILY PO 10/25/24 10:00 10/31/24 09:32 5 MG Aspirin 81 mg DAILY PO 10/25/24 10:00 10/31/24 09:32 81 MG Empaglifozin 10 mg DAILY PO 10/25/24 10:00 10/31/24 09:31 10 MG Furosemide 20 mg BID PO 10/24/24 22:00 10/31/24 09:32 20 MG Oxycodone HCl 20 mg BID PO 10/24/24 22:00 10/31/24 09:30 20 MG Artificial Tears 1 drop Q6HP PRN EACHEYE 10/26/24 13:15 10/29/24 22:33 1 DROP Amoxicillin/ Clavulanate Potassium 875 mg Q12HR PO 10/26/24 22:00 10/31/24 09:30 875 MG Famotidine 10 mg DAILY IV 10/27/24 10:00 10/31/24 09:29 10 MG Fluconazole 50 mg DAILY PO 10/27/24 10:00 10/31/24 09:32 50 MG Sennosides 8.6 mg QHSP PRN PO 10/29/24 12:00 10/29/24 22:36 8.6 MG Laboratory Results Laboratory Tests 10/23/24 03:00 10/28/24 15:33 Urinalysis Test 10/20/24 23:30 10/21/24 12:37 Urine Color Colorless (Yellow) Urine Clarity Clear (Clear) Urine pH 5.0 (5.0-9.0) Urine Specific [place] 1.009 (1.001-1.035) Urine Protein Negative (Negative) Urine Ketones Negative (Negative) Urine Blood 3+ /uL (Negative) H Urine Nitrite Negative (Negative) Urine Bilirubin Negative (Negative) Urine Urobilinogen Normal mg/dL (Negative) Urine Leukocyte Esterase Trace /uL (Negative) Urine RBC 91 /hpf (0 - 4) Urine Microscopic WBC 16 /HPF (0-5) H Urine Squamous Epithelial Cells None seen /hpf (<5) Urine Bacteria Few /hpf (None Seen) H Urine Yeast (Budding) Few /hpf (None Seen) Urine Glucose Normal mg/dL (Normal) Urine Creatinine 25.46 mg/dL (30.0-125.0) L Urine Sodium 84 mmol/L (40-220) Microbiology Microbiology Date/Time Source Procedure Growth Status 10/28/24 15:26 Urine - [place] Urine Culture - Preliminary Resulted 10/21/24 15:47 Blood Blood Culture - Final NO GROWTH AFTER 5 DAYS OF INCUBATION. Complete 10/21/24 15:44 Nose MRSA Screen - Final Complete Labs and/or images reviewed: Labs reviewed by me, Image(s) reviewed by me Assessment/Plan Assessment/Plan Impression: -probable hypovolemic shock -acute kidney injury, vasomotor nephropathy -complicated cystitis -ER metabolic encephalopathy -acute on chronic diastolic heart failure, half Azul -obesity -deconditioning with bed-bound status -dyslipidemia Plan: Events: Patient ambulated 4 ft. Now is hopeful to continue with rehabilitation. Discharge planning again discussed with the patient. -bowel regimen with Colace and senna -left shoulder x-ray -Repeat labs, urine culture -stop antibiotic therapy -physical therapy -pain management -PUD prophylaxis -continue anticoagulation Total time spent with patient discussing and formulating plan of care: 35 minutes. This medical document was created using an electronic medical record system with [employer] dictation system. Although this document has been carefully reviewed, there may still be some phonetic and typographical errors. These areas are purely typographical due to imperfections of the software programs, and do not reflect any compromise in the patient's medical care. Plan discussed with: Patient, Other (RN ) Date of Service: Oct 31, 2024 Billing Provider: KLAUS ZAMORANO NP Common Visit Codes: [id number] INP/OBS CARE(HIGH) KLAUS ZAMORANO NP Oct 31, 2024 14:12
[2024-10-31] MEDS: DOCUSATE SOD 100 MG CAP PO PRN (17:39)
--- NOTE | 2024-10-31 18:12 | DVHPN2 ---
Progress Note - Dictate Date Seen: Oct 31, 2024 Medical Necessity Reason Pt with a Central, PICC or Fol: Yes The following are medically ne: Swartz Catheter Reason for swartz catheter: Strict I&O vital signs Vital Sign Date Time Temp Pulse Resp B/P (MAP) Pulse Ox O2 Delivery O2 Flow Rate FiO2 10/31/24 17:00 97.8 67 14 107/68 (81) 98 97.8 10/31/24 08:00 Nasal Cannula* 4 36 Total Intake and Output 10/30/24 10/30/24 10/31/24 15:00 23:00 07:00 Intake Total 900 ml 600 ml Output Total 700 ml Balance 900 ml -100 ml medications Current Medications Medications Dose Ordered Sig/Leonard Route Start Time Stop Time Status Last Admin Dose Admin Atorvastatin Calcium 20 mg HS PO 10/21/24 22:00 10/30/24 21:19 20 MG Multivit/Ca Carb/ B Cmplx/FA/Prenat 1 tab DAILY PO 10/21/24 10:00 10/31/24 09:31 1 TAB Ondansetron HCl 4 mg Q4HP PRN IV 10/20/24 23:30 10/31/24 13:50 4 MG Docusate Sodium 100 mg BIDPRN PRN PO 10/20/24 23:30 Acetaminophen 650 mg Q6HP PRN PO 10/20/24 23:30 10/24/24 21:06 650 MG Nitroglycerin 0.4 mg Q5MINP PRN SL 10/20/24 23:30 Morphine Sulfate 2 mg Q30M PRN IV 10/20/24 23:30 Apixaban 5 mg BID PO 10/21/24 10:00 10/31/24 09:31 5 MG Midodrine 10 mg TID@0600,1200,1800 PO 10/21/24 06:00 10/31/24 17:39 10 MG Sodium Chloride 10 ml QSHIFT@10,22 IV 10/21/24 22:00 10/31/24 09:33 10 ML Oxycodone HCl 20 mg TIDPRN PRN PO 10/22/24 13:30 10/31/24 13:50 20 MG Amlodipine Besylate 5 mg DAILY PO 10/25/24 10:00 10/31/24 09:32 5 MG Aspirin 81 mg DAILY PO 10/25/24 10:00 10/31/24 09:32 81 MG Empaglifozin 10 mg DAILY PO 10/25/24 10:00 10/31/24 09:31 10 MG Furosemide 20 mg BID PO 10/24/24 22:00 10/31/24 09:32 20 MG Oxycodone HCl 20 mg BID PO 10/24/24 22:00 10/31/24 09:30 20 MG Artificial Tears 1 drop Q6HP PRN EACHEYE 10/26/24 13:15 10/29/24 22:33 1 DROP Famotidine 10 mg DAILY IV 10/27/24 10:00 10/31/24 09:29 10 MG Sennosides 8.6 mg QHSP PRN PO 10/29/24 12:00 10/29/24 22:36 8.6 MG laboratory and microbiology Laboratory Tests 10/28/24 15:33 10/23/24 03:00 Test 10/28/24 15:33 Range/Units Serum Glucose 108 H 74-106 mg/dL Assessment/Plan +-66Impression Acute hypoxic respiratory failure Dependence on supplemental oxygen Urinary tract infection Septic shock Cellulitis Acute metabolic encephalopathy Morbid obesity Events: Low oxygen requirements On 2 LPM NC No acute events Management Continue antibiotics Continue antifungal Incentive spirometry Midodrine for blood pressure support Pain control - on home pain medication regimen Oxycodone q.8 hours PRN Avoid oversedation Pepcid for GI ppx Patient is stable for discharge from the pulmonary standpoint. Dietary Evaluation Review Comments: 1) Initiate Nepro bid 2) If PO intake < 50%, consider EN/TPN to meet at least 75% of estimated needs 3) Refer to outpatient RD for weight management 4) Follow-up with cardiology, pulmonology, and nephrology 5) Continue to monitor I&O, labs, and skin integrity Expected Outcomes/Goals: 1) appetite and labs to improve 2) wounds to improve 3) f/u in 2-3 days Plan discussed with: Patient SHARLENE COX MD Oct 31, 2024 18:12
[2024-11-01] VITALS (7 sets, daily range): BP systolic 95–110; BP diastolic 64–72; PULSE 52–78; RESP 14–20; TEMP 36.7; O2SAT 95–98
--- NOTE | 2024-11-01 10:16 | DVHDS2 ---
Discharge Summary Date of Admission Oct 20, 2024 at 23:21 Date of Discharge: Nov 01, 2024 Admitting Diagnosis End Stage renal disease Labs/Diagnostic Data: Laboratory Results Test 10/28/24 15:33 10/23/24 03:00 10/22/24 03:00 10/21/24 15:47 Sodium Level 140 mmol/L (136-145) Potassium Level 4.2 mmol/L (3.5-5.1) Chloride Level 103 mmol/L (98-107) Carbon Dioxide Level 28 mmol/L (20-31) Anion Gap 9 (5-15) Blood Urea Nitrogen 26 mg/dL (9-23) Creatinine 1.19 mg/dL (0.550-1.02) Glomerular Filtration Rate Calc 47 mL/min (>90) BUN/Creatinine Ratio 21.8 (10.0-20.0) Serum Glucose 108 mg/dL (74-106) Calcium Level 8.9 mg/dL (8.7-10.4) Magnesium Level 1.4 mg/dL (1.6-2.6) White Blood Count 6.0 10^3/uL (4.4-10.8) Red Blood Count 4.18 10^6/uL (4.0-5.20) Hemoglobin 11.9 g/dL (12.2-16.2) Hematocrit 36.5 % (36.0-46.0) Mean Corpuscular Volume 87.4 fL (80.0-100.0) Mean Corpuscular Hemoglobin 28.5 pg (28.0-32.0) Mean Corpuscular Hemoglobin Concent 32.7 g/dL (32.0-36.0) Red Cell Distribution Width 19.4 % (11.8-14.3) Platelet Count 189 10^3/uL (140-450) Mean Platelet Volume 8.3 fL (6.9-10.8) Neutrophils (%) (Auto) 72.0 % (37.0-80.0) Lymphocytes (%) (Auto) 14.0 % (10.0-50.0) Monocytes (%) (Auto) 9.2 % (0.0-12.0) Eosinophils (%) (Auto) 4.2 % (0.0-7.0) Basophils (%) (Auto) 0.6 % (0.0-2.0) Neutrophils # (Auto) 4.3 10 ^3/uL (1.6-8.6) Lymphocytes # (Auto) 0.8 10 ^3/uL (0.4-5.4) Monocytes # (Auto) 0.6 10 ^3/uL (0-1.3) Eosinophils # (Auto) 0.2 10 ^3/uL (0-0.8) Basophils # (Auto) 0 10 ^3/uL (0-0.2) Nucleated Red Blood Cells 0.0 % Phosphorus Level 2.5 mg/dL (2.4-5.1) Hemoglobin A1c 6.0 % A1C (<5.7) Total Bilirubin 1.0 mg/dL (0.2-1.0) Direct Bilirubin 0.5 mg/dL (<0.3) Aspartate Amino Transferase (AST) 27 U/L (13-40) Alanine Aminotransferase (ALT) 10 U/L (7-40) Alkaline Phosphatase 106 U/L (46-116) Total Protein 6.7 g/dL (5.7-8.2) Albumin 3.8 g/dL (3.2-4.8) Lactic Acid Level 1.4 mmol/L (0.4-2.0) Test 10/21/24 14:40 10/21/24 12:58 10/21/24 12:37 10/21/24 10:59 Blood Gas Specimen Type Arterial Blood Gas Sample Site Right radial Blood Gas Patient Temperature 37.0 Arterial Blood Date Drawn [id number] Arterial Blood pH 7.338 (7.350-7.450) Arterial Blood Partial Pressure CO2 35.0 mmHg (32.0-45.0) Arterial Blood Partial Pressure O2 75.6 mmHg (83.0-108.0) Arterial Blood HCO3 18.4 mmol/L (21.0-28.0) Arterial Blood Oxygen Saturation 94.6 % (94.0-98.0) Arterial Blood Base Excess -6.6 mmol/L (-2.0-3.0) Arterial Blood Oxyhemoglobin 92.9 % (94.0-98.0) Arterial Blood Carboxyhemoglobin 1.3 % (0.5-1.5) Arterial Blood Methemoglobin 0.5 % (0.0-1.5) [place] Test Yes Blood Gas Total Hemoglobin 13.50 g/dL (12.0-16.0) Blood Gas Liter Flow 4.00 Blood Gas Modality Nasal cannula FiO2 % 36.0 Prothrombin Time 13.8 sec (9.3-11.8) Prothrombin Time INR 1.34 (0.9-1.15) Activated Partial Thromboplast Time 37.6 SEC (24.5-34.5) Urine Creatinine 25.46 mg/dL (30.0-125.0) Urine Sodium 84 mmol/L (40-220) POC Glucose 92 mg/dl (70-106) Test 10/20/24 23:30 10/20/24 21:00 10/20/24 20:08 Urine Color Colorless (Yellow) Urine Clarity Clear (Clear) Urine pH 5.0 (5.0-9.0) Urine Specific [place] 1.009 (1.001-1.035) Urine Protein Negative (Negative) Urine Ketones Negative (Negative) Urine Blood 3+ /uL (Negative) Urine Nitrite Negative (Negative) Urine Bilirubin Negative (Negative) Urine Urobilinogen Normal mg/dL (Negative) Urine Leukocyte Esterase Trace /uL (Negative) Urine RBC 91 /hpf (0 - 4) Urine Microscopic WBC 16 /HPF (0-5) Urine Squamous Epithelial Cells None seen /hpf (<5) Urine Bacteria Few /hpf (None Seen) Urine Yeast (Budding) Few /hpf (None Seen) Urine Glucose Normal mg/dL (Normal) Troponin I High Sensitivity 9 ng/L (</=34) B-Type Natriuretic Peptide 755.19 pg/mL (0-100) Lipase 70 U/L (12-53) Other Laboratory Tests 10/28/24 15:33 10/23/24 03:00 Brief Hx & Hospital Course: History of Present Illness The patient is a 79-year-old female with past medical history of AFib, asthma, cancer, CHF, chronic kidney failure, dementia, and hypertension who presented to [facility] ED with complaint of urinary problem. Daughter reports patient has been having dark-colored urine and being worried for a UTI, so EMS were called. Patient states a history of kidney failure, but has not had any treatment or management in years. Patient was seen and evaluated in the ED, laboratory data shows WBC 5.6, platelets 261, sodium 134, potassium 6.5, BUN 115, creatinine 3.96, glucose 136, calcium 9.4, BNP 755.19, troponin 10, lipase 70, blood pressure 85/41 trending up to 90/70, heart rate 70, temperature 97.6 F, O2 saturation 96% on oxygen. Please see medication orders section in the computer. On my assessment, patient denied chest pain, no headache, no dizziness, no diaphoresis, currently on oxygen, no nausea, no vomiting, no fever, no chills. Patient was admitted for further evaluation and medical management. Course of hospitalization: Patient was treated with IV hydration, potassium lowering agents, empiric antibiotic therapy. White blood cell count improved. Patient has renal function has now returned to normal. Patient is now alert and oriented X4. Multiple discussions were made with the patient regarding discharge planning. Patient was not happy with being on hospice. Patient was offered fdc facility. Long discussions were also made with the patient's family. Patient had physical therapy with patient becoming and currently that she was able to walk 4 ft, which has not occurred in the past year. Patient again offered fdc facility as they would manage her medications and diet as well as PT more appropriately. At this time patient wishes to go back on hospice at home with continued physical therapy. Physical examination General: Alert and Oriented x3. No acute distress. Well-nourished. Obese Eyes: EOMI. Anicteric. HENT: Moist mucous membranes. Lungs: Clear to auscultation bilaterally. No accessory muscle use. Cardiovascular: Regular rate and rhythm. No murmur. No JVD. Abdomen: Soft, non-tender and non-distended. No palpable masses. Extremities: No edema. Non-tender. Skin: No rashes or lesions. Warm. Neurologic: No focal neurological deficits. CN II-XII grossly intact, but not individually tested. Psychiatric: Cooperative. Appropriate mood and affect. Total time spent with patient discussing and formulating plan of care: 35 minutes. This medical document was created using an electronic medical record system with [employer] dictation system. Although this document has been carefully reviewed, there may still be some phonetic and typographical errors. These areas are purely typographical due to imperfections of the software programs, and do not reflect any compromise in the patient's medical care. Consults/Reason for consult Nephrology: Acute kidney injury Condition at Discharge: Poor Final Diagnosis/Problems List Metabolic Encephalopathy Secondary diagnosis: -hypovolemic and septic shock -acute kidney injury, vasomotor nephropathy -complicated cystitis -ER metabolic encephalopathy -acute on chronic diastolic heart failure, half Azul -obesity -deconditioning with bed-bound status -dyslipidemia -sepsis secondary to Enterococcus faecalis -hyperkalemia Discharge Disposition: Hospice - Home Discharge Instruct/Medications Diet: Consistent carbohydrate, Cardiac 2g Na,low cholest, Renal Activity: No Restrictions, As Tolerated Follow Up/Referral: Per Hospice provider Medications: Per Hospice provider Scheduled Albuterol Sulfate (Albuterol Sulfate Hfa), 108 MCG IN BID Allopurinol (Allopurinol), 1 TAB PO DAILY, (Reported) Amlodipine Besylate (Amlodipine Besylate), 1 TAB PO DAILY Apixaban Base (Eliquis), 1 TAB PO BID Aspirin (Aspir-Low), 81 MG PO DAILY Atorvastatin Calcium (Atorvastatin Calcium), 1 TAB PO DAILY Cholecalciferol (Vitamin D3), 1 TAB PO DAILY, (Reported) Doxycycline Hyclate (Doxycycline Hyclate), 100 MG PO BID Empagliflozin (Jardiance), 10 MG PO DAILY Furosemide (Furosemide), 1 TAB PO BID, (Reported) Lisinopril (Lisinopril), 1 TAB PO DAILY Metoprolol Succinate (Metoprolol Succinate Er), 1 TAB PO DAILY Mometasone Furoate-Formoterol (Dulera), INH UD, (Reported) Mometasone Furoate-Formoterol (Dulera), 2 PUFF INH BID, (Reported) Oxycodone Hcl (OxyCONTIN ER Tablet), 1 TAB PO BID Potassium Chloride (Potassium Chloride ER), 1 TAB PO DAILY, (Reported) Sulfamethoxazole W/Trimethopri (Bactrim Ds Tablet), 1 TAB PO BID Umeclidinium Boyd (Incruse Ellipta), 62.5 MCG IN DAILY Scheduled PRN Calcium Carbonate (Antacid) (Antacid), 750 MG PO DAILYPRN PRN Hydrocodone-Acetaminophen (Hydrocodone Bitartrate/AC 5-325 mg), 1 TAB PO QID PRN Naloxone HCl (Narcan), 4 MG NA PRN PRN Ondansetron HCl (Ondansetron), 4 MG PO PRN PRN for NAUSEA / VOMITING Miscellaneous Medications Senna (Sennosides), 8.6 MG PO, (Reported) 36 Discharge Statement: "Patient was advised to return to the ER or call 911 if any headaches, dizziness, shortness of breath, chest pain, abdominal pain, bleeding, fevers, or worsening of medical condition. Patient was counseled about treatment plan, medications, possible side effects, patientverbalized understanding. All questions were answered to the best of my ability. This discharge took greater then 30 minutes in planning, reviewing documentation, counseling the patient, and discussing with other team members." ASSESSMENT ASSESSMENT Assessment Metabolic Encephalopathy Date of Service: Nov 01, 2024 Billing Provider: KLAUS ZAMORANO NP Common Visit Codes: [id number] DISCH DAY >30min KLAUS ZAMORANO NP Nov 01, 2024 10:16
[2024-11-01] MEDS ORDERED: FUROSEMIDE 20 MG TAB PO SCH (18:00)
--- NOTE | 2024-11-01 21:17 | DVHPN2 ---
Progress Note - Dictate Date Seen: Nov 01, 2024 Medical Necessity Reason Pt with a Central, PICC or Fol: Yes The following are medically ne: Swartz Catheter Reason for swartz catheter: Strict I&O vital signs Vital Sign Date Time Temp Pulse Resp B/P (MAP) Pulse Ox O2 Delivery O2 Flow Rate FiO2 11/01/24 17:00 97.6 61 20 95/64 (74) 96 97.6 11/01/24 08:00 Nasal Cannula* 4 36 Total Intake and Output 10/31/24 10/31/24 11/01/24 15:00 23:00 07:00 Intake Total 800 ml 650 ml Output Total 500 ml 1000 ml Balance 300 ml -350 ml laboratory and microbiology Laboratory Tests 10/28/24 15:33 10/23/24 03:00 Test 10/28/24 15:33 Range/Units Serum Glucose 108 H 74-106 mg/dL Assessment/Plan +-66Impression Acute hypoxic respiratory failure Dependence on supplemental oxygen Urinary tract infection Septic shock Cellulitis Acute metabolic encephalopathy Morbid obesity Events: Low oxygen requirements On 2 LPM NC No acute events Management Continue antibiotics Continue antifungal Incentive spirometry Midodrine for blood pressure support Pain control - on home pain medication regimen Oxycodone q.8 hours PRN Avoid oversedation Pepcid for GI ppx Patient is stable for discharge from the pulmonary standpoint. Dietary Evaluation Review Comments: 1) Initiate Nepro bid 2) If PO intake < 50%, consider EN/TPN to meet at least 75% of estimated needs 3) Refer to outpatient RD for weight management 4) Follow-up with cardiology, pulmonology, and nephrology 5) Continue to monitor I&O, labs, and skin integrity Expected Outcomes/Goals: 1) appetite and labs to improve 2) wounds to improve 3) f/u in 2-3 days Plan discussed with: Patient SHARLENE COX MD Nov 01, 2024 21:17
== END 2024-11-01 18:50 | disposition hospice, home (50) | DRG 871 ==
LOC: EDBD 19:36 → ER 19:41 → OVERFLOW 23:21 → ICU WEST 10-21 15:21 → TELE-EAST 10-24 21:28
PROVIDERS: ADMIT Nurse Practitioner Acute Care; ATTEND Nurse Practitioner Acute Care
PROC: 02HV33Z Insertion of Infusion Device into Superior Vena Cava, Percutaneous Approach (ICD-10-PCS; principal; 2024-10-21)
PROC: B548ZZA Ultrasonography of Superior Vena Cava, Guidance (ICD-10-PCS; 2024-10-21)
PROC: 05HF33Z Insertion of Infusion Device into Left Cephalic Vein, Percutaneous Approach (ICD-10-PCS; 2024-10-21)
PROC: B54NZZA Ultrasonography of Left Upper Extremity Veins, Guidance (ICD-10-PCS; 2024-10-21)
DX: A41.81 Sepsis due to Enterococcus (principal); G92.8 Other toxic encephalopathy; N18.6 End stage renal disease; K85.90 Acute pancreatitis without necrosis or infection, unspecified; R65.21 Severe sepsis with septic shock; J96.01 Acute respiratory failure with hypoxia; N17.0 Acute kidney failure with tubular necrosis; I50.43 Acute on chronic combined systolic (congestive) and diastolic (congestive) heart failure; R57.1 Hypovolemic shock; L03.115 Cellulitis of right lower limb; L03.116 Cellulitis of left lower limb; I13.2 Hypertensive heart and chronic kidney disease with heart failure and with stage 5 chronic kidney disease, or end stage renal disease; Z68.43 Body mass index [BMI] 50.0-59.9, adult; C95.90 Leukemia, unspecified not having achieved remission; Z51.5 Encounter for palliative care; E87.5 Hyperkalemia; I34.0 Nonrheumatic mitral (valve) insufficiency; I27.20 Pulmonary hypertension, unspecified; E66.01 Morbid (severe) obesity due to excess calories; I07.1 Rheumatic tricuspid insufficiency; E11.22 Type 2 diabetes mellitus with diabetic chronic kidney disease; I45.10 Unspecified right bundle-branch block; E78.5 Hyperlipidemia, unspecified; G89.4 Chronic pain syndrome; F03.90 Unspecified dementia, unspecified severity, without behavioral disturbance, psychotic disturbance, mood disturbance, and anxiety; I48.91 Unspecified atrial fibrillation; N30.91 Cystitis, unspecified with hematuria; I25.10 Atherosclerotic heart disease of native coronary artery without angina pectoris; J44.89 Other specified chronic obstructive pulmonary disease; F41.9 Anxiety disorder, unspecified; Z99.81 Dependence on supplemental oxygen; Z91.048 Other nonmedicinal substance allergy status; Z79.84 Long term (current) use of oral hypoglycemic drugs; Z79.82 Long term (current) use of aspirin; Z79.01 Long term (current) use of anticoagulants; Z90.710 Acquired absence of both cervix and uterus; Z90.13 Acquired absence of bilateral breasts and nipples; Z87.891 Personal history of nicotine dependence; Z90.49 Acquired absence of other specified parts of digestive tract; Z83.3 Family history of diabetes mellitus; Z80.0 Family history of malignant neoplasm of digestive organs; Z74.01 Bed confinement status; Z85.3 Personal history of malignant neoplasm of breast
CPT/HCPCS: 36415; 36569; 36600; 70450; 71045; 73030; 76937; 80048; 80053; 80076; 81001; 82570; 82805; 82962; 83036; 83605; 83690; 83735; 83880; 84100; 84132; 84300; 84484; 85025; 85610; 85730; 87040; 87081; 87086; 87088; 87186; 93005; 94640; 96365; 96375; 97110; 97116; 97163; 97530; G0378; J1815; J1885; J2405; J2543; J3490

== ENCOUNTER 2024-12-21 20:20 | Inpatient (IN) | payer OTHER, MEDICARE ==
[~2024-12-21] VITALS: Ht 152.4 cm; Wt 94.1 kg
[2024-12-21] MEDS: AZITHROMYCIN 500MG/ 250ML 250 ML IV ONE
--- NOTE | 2024-12-21 20:40 | ECG ---
[facility] Test Date: 2024-12-21 Test Time: 20:22:59 Pat Name: SHILA LERNER Department: Room: 0220T Gender: F [employer] Supervisor: SUHAIL : [id number] Requested By: ZELALEM ERVIN Order Number: [id number] Reading MD: Eriberto Julio Measurements Intervals [place] Rate: 114 P: 0 TX: 0 QRS: 32 QRSD: 158 T: -58 QT: 334 QTc: 461 Interpretive Statements Atrial fibrillation Ventricular tachycardia, unsustained Right bundle branch block Electronically Signed On 12-25-2024 10:22:26 PDT by Eriberto Julio Please click the below link to view image of tracing.
--- NOTE | 2024-12-21 20:43 | ED.PDOC ---
HPI Comments 79-year-old female came to ER via EMS for shortness a breath. Patient has history of hypertension, AFib, chronic kidney failure, CHF and is on home oxygen. For the past few days she has been experiencing progressively worsening shortness a breath, with the worsening by pedal edema. Denies any acute chest pains. Patient is saturating at 90% at room air on scene Chief Complaint: Shortness of Breath Time Seen by MD: 20:42 Primary Care Provider: RICCO Reviewed Notes: Manager [employer] Notes Allergies: Coded Allergies: Diphenhydramine (Verified Allergy, Unknown, 09/21/22) Uncoded Allergies: TAPE (Allergy, Unknown, 09/21/22) Home Meds Active Scripts Hydrocodone-Acetaminophen (Hydrocodone Bitartrate/AC 5-325 mg) 1 Tab Tab, 1 TAB PO QID PRN, #30 TAB Prov:NICOL ROMAN MD 10/02/24 Sulfamethoxazole W/Trimethopri (Bactrim Ds Tablet) 1 Tab Tb, 1 TAB PO BID for 10 Days, #20 TAB Prov:CESAR HAYES RESIDENT 07/15/24 Doxycycline Hyclate (Doxycycline Hyclate) 50 Mg Cap, 100 MG PO BID for 10 Days, #20 CAP Prov:CESAR HAYES RESIDENT 07/15/24 Naloxone HCl (Narcan) 4 Mg/0.1 Ml Spr, 4 MG NA PRN PRN for 1 Day, #1 SPRAY 1 Refill Prov:DEONDRE GLEZ MD 05/17/24 Oxycodone Hcl (OxyCONTIN ER Tablet) 20 Mg Tb, 1 TAB PO BID for 7 Days, #14 TAB Prov:DEONDRE GLEZ MD 05/17/24 Albuterol Sulfate (Albuterol Sulfate Hfa) 108 Mcg/Act Aer, 108 MCG IN BID for 30 Days, #1 AER 0 Refills Prov:CHEN MANCERA 05/16/24 Umeclidinium [place] (Incruse Ellipta) 62.5 Mcg/Inh Inh, 62.5 MCG IN DAILY for 30 Days, #1 INHALER 0 Refills Prov:CHEN MANCERA 05/16/24 Empagliflozin (Jardiance) 10 Mg Tab, 10 MG PO DAILY for 30 Days, #30 TAB 1 Refill Prov:CHEN MANCERA 05/16/24 Apixaban Base (ELIQUIS) 5 Mg Tab, 1 TAB PO BID for 30 Days, #60 TAB Prov:[facility] 05/16/24 Lisinopril (Lisinopril) 20 Mg Tab, 1 TAB PO DAILY for 30 Days, #30 TAB 5 Refills Prov:[facility] 05/16/24 Calcium Carbonate (Antacid) (Antacid) 750 Mg Chw, 750 MG PO DAILYPRN PRN for 30 Days, #30 TAB.CHEW Prov:[facility] 05/16/24 Aspirin (Aspir-Low) 81 Mg Tab, 81 MG PO DAILY for 30 Days, #30 MG Prov:[facility] 05/16/24 Ondansetron HCl (Ondansetron) 4 Mg Tab, 4 MG PO PRN PRN for NAUSEA / VOMITING for 30 Days, #30 TAB Prov:[facility] 05/16/24 Atorvastatin Calcium (ATORVASTATIN CALCIUM) 40 Mg Tab, 1 TAB PO DAILY for 30 Days, #30 TAB Prov:[facility] 05/16/24 Amlodipine Besylate (Amlodipine Besylate) 5 Mg Tab, 1 TAB PO DAILY for 30 Days, #30 TAB Prov:[facility] 05/16/24 Metoprolol Succinate (Metoprolol Succinate Er) 25 Mg Tab, 1 TAB PO DAILY for 30 Days, #30 TAB Prov:[facility] 05/16/24 Reported Medications Mometasone Furoate-Formoterol (Dulera) 1 Aer Aer, 2 PUFF INH BID 07/09/24 Allopurinol (Allopurinol) 300 Mg Tab, 1 TAB PO DAILY 07/09/24 Furosemide (Furosemide) 20 Mg Tab, 1 TAB PO BID 07/09/24 Mometasone Furoate-Formoterol (Dulera) 1 Aer Aer, INH UD for 30 Days, #13 02/02/24 Potassium Chloride (Potassium Chloride ER) 10 Meq Tab, 1 TAB PO DAILY for 30 Days, #30 02/02/24 Senna (Sennosides) 8.6 Mg Tab, 8.6 MG PO, TAB 02/02/24 Cholecalciferol (VITAMIN D3) 2,000 Unit Tab, 1 TAB PO DAILY for 30 Days 02/02/24 Information Source: Patient, Emergency Med Personnel Mode of Arrival: EMS Severity: Moderate Timing: Days Duration: Since onset Prehospital treatment: Oxygen Onset: With Light Exertion Cardiac Risk Factors: HTN, Other (CHF) History of: Similar pain in past Associated Signs and Symptoms: SOB Past Medical History PAST MEDICAL HISTORY: AFIB, Asthma, Cancer, CHF, CKF, Dementia, HTN Surgical History: Appendectomy, Cholecystectomy, Hysterectomy, Tonsillectomy 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: 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 all COLLECTIVE BARGAINING SPECIALIST Hx Family History Family History: No family hx of Cancer, No family hx of DM, No family hx of HTN, No family hx ofKidney waqas, No family hx of Liver waqas, No family hx of Lung waqas, No family hx of Stroke, Family hx of heart waqas Social History Smoker: Quit Greater Than 1 Year Alcohol: Denies ETOH Use Drugs: Denies Drug Use Lives In: Home Constitutional: reports: weakness; denies: chills, diaphoresis, fatigue, fever, malaise, sweats, others EENTM: denies: blurred vision, double vision, ear bleeding, ear discharge, ear drainage, ear pain, ear ringing, eye pain, eye redness, hearing loss, mouth pain, mouth swelling, nasal discharge, nose bleeding, nose congestion, nose pain, photophobia, tearing, throat pain, throat swelling, voice changes, others Respiratory: reports: shortness of breath, SOB with excertion; denies: cough, hemoptysis, orthopnea, SOB at rest, stridor, wheezing, others Cardiovascular: reports: edema; denies: chest pain, dizzy spells, diaphoresis, Dyspnea on exertion, irregular heart beat, left arm pain, lightheadedness, palpitations, PND, syncope, others Gastrointestinal: denies: abdomen distended, abdominal pain, blood streaked bowels, constipated, diarrhea, dysphagia, difficulty swallowing, hematemesis, melena, nausea, poor appetite, poor fluid intake, rectal bleeding, rectal pain, vomiting, others Genitourinary: denies: abnormal vagina bleeding, burning, dyspareunia, dysuria, flank pain, frequency, hematuria, incontinence, pain, , vagina discharge, urgency, others Neurological: denies: dizziness, fainting, headache, left sided numbness, left sided weakness, numbness, paresthesia, pre-existing deficit, right sided numbness, right sided weakness, seizure, speech problems, tingling, tremors, weakness, others Musculoskeletal: denies: back pain, gout, joint pain, joint swelling, muscle pain, muscle stiffness, neck pain, others Integumetry: denies: bruises, change in color, change in hair/nails, dryness, laceration, lesions, lumps, rash, wounds, others Allergic/Immunocompromised: denies: Difficulty Healing, Frequent Infections, Hives, Itching, others Hematologic/Lymphatic: denies: anemia, blood clots, easy bleeding, easy bruising, swollen glands, others Endocrine: denies: excessive hunger, excessive sweating, excessive thirst, excessive urination, flushing, intolerance to cold, intolerance to heat, unexplained weight gain, unexplained weight loss, others Psychiatric: denies: anxiety, bipolar disorder, depression, hopeless, panic dis order, schizophrenia, sleepless, suicidal, others Physical Exam General Appearance: No Apparent Distress, Normal HEENT: Normal ENT Inspection, Pharynx Normal, TMs Normal Neck: Full Range of Motion, Non-Tender, Normal, Normal Inspection Respiratory: Chest Non-Tender, Lungs Clear, No Accessory Muscle Use, No Respiratory Distress, Normal Breath Sounds Cardiovascular: No Edema, No JVD, No Murmur, No Gallop, Normal Peripheral Pulses, Regular Rate/Rhythm Breast Exam: Deferred Gastrointestinal: No Organomegaly, Non Tender, No Pulsatile Mass, Normal Bowel Sounds, Soft Genitalia: Deferred Pelvic: Deferred Rectal: Deferred Extremities: No calf tenderness, Normal capillary refill, Normal inspection, Normal range of motion, Non-tender, No pedal edema Musculoskeletal : Apperance: Normal Neurologic: Alert, fashion merchandiser II-XII nml as Tested, No Motor Deficits, Normal Affect, Normal Mood, No Sensory Deficits Cerebellar Function: Normal Reflexes: Normal Skin: Dry, Normal Color, Warm Lymphatic: No Adenopathy Was a procedure done? Was a procedure done?: No CP Differential Dx Differential Diagnosis: Angina, Anxiety / Panic Attack, Electrolyte Disorder Differential Diagnosis: CHF Differential Diagnosis: Angina, Chest Wall Pain, Costochondritis, Esophageal reflux/spasm, Gastritis, Myocardial Infarction X-Ray, Labs, Meds, VS Vital Signs Date Time Temp Pulse Resp B/P (MAP) Pulse Ox O2 Delivery O2 Flow Rate FiO2 12/21/24 22:00 Nasal Cannula* 4 36 12/21/24 22:00 98.3 124 17 120/71 (87) 95 98.3 12/21/24 20:22 114 12/21/24 20:20 98.4 118 18 133/74 92 98.4 Lab Test 12/21/24 21:20 Range/Units White Blood Count 10.8 4.4-10.8 10^3/uL Red Blood Count 5.17 4.0-5.20 10^6/uL Hemoglobin 14.2 12.2-16.2 g/dL Hematocrit 43.7 36.0-46.0 % Mean Corpuscular Volume 84.6 80.0-100.0 fL Mean Corpuscular Hemoglobin 27.5 L 28.0-32.0 pg Mean Corpuscular Hemoglobin Concent 32.5 32.0-36.0 g/dL Red Cell Distribution Width 19.2 H 11.8-14.3 % Platelet Count 302 140-450 10^3/uL Mean Platelet Volume 8.0 6.9-10.8 fL Neutrophils (%) (Auto) 80.7 H 37.0-80.0 % Lymphocytes (%) (Auto) 7.2 L 10.0-50.0 % Monocytes (%) (Auto) 5.7 0.0-12.0 % Eosinophils (%) (Auto) 5.8 0.0-7.0 % Basophils (%) (Auto) 0.6 0.0-2.0 % Neutrophils # (Auto) 8.8 H 1.6-8.6 10 ^3/uL Lymphocytes # (Auto) 0.8 0.4-5.4 10 ^3/uL Monocytes # (Auto) 0.6 0-1.3 10 ^3/uL Eosinophils # (Auto) 0.6 0-0.8 10 ^3/uL Basophils # (Auto) 0.1 0-0.2 10 ^3/uL Nucleated Red Blood Cells 0.0 % Prothrombin Time 13.5 H 9.3-11.8 sec Prothrombin Time INR 1.31 H 0.9-1.15 Activated Partial Thromboplast Time 30.5 24.5-34.5 SEC Sodium Level 141 136-145 mmol/L Potassium Level 3.2 L 3.5-5.1 mmol/L Chloride Level 99 98-107 mmol/L Carbon Dioxide Level 31 20-31 mmol/L Anion Gap 11 5-15 Blood Urea Nitrogen 11 9-23 mg/dL Creatinine 0.96 0.550-1.02 mg/dL Glomerular Filtration Rate Calc 61 >90 mL/min BUN/Creatinine Ratio 11.5 10.0-20.0 Serum Glucose 114 H 74-106 mg/dL Lactic Acid Level 2.4 *H 0.4-2.0 mmol/L Calcium Level 9.2 8.7-10.4 mg/dL Magnesium Level 1.7 1.6-2.6 mg/dL Total Bilirubin 1.0 0.2-1.0 mg/dL Aspartate Amino Transferase (AST) 22 13-40 U/L Alanine Aminotransferase (ALT) < 9 7-40 U/L Alkaline Phosphatase 142 H 46-116 U/L B-Type Natriuretic Peptide 922.82 0-100 pg/mL Total Protein 7.3 5.7-8.2 g/dL Albumin 3.9 3.2-4.8 g/dL Time of 1ST Reevaluation: 20:35 Reevaluation 1ST: Unchanged Patient Education/Counseling: Diagnosis, Treatment Family Education/Counseling: No Family Present SEPSIS Sepsis Screen Physician Orders Troponin-I Hs (12/22/24 00:00) Troponin-I Hs (12/22/24 03:00) Troponin-I Hs (12/22/24 06:00) Blood Culture (12/21/24 20:32) Chest Xray 1 View (12/21/24 20:32) Bilat Lower Dvt (12/21/24 20:32) Potassium Er Tablet (Klor-Con Tablet) (12/21/24 22:45) Ceftriaxone Ivpb Rocephin (12/21/24 22:45) Azithromycin 500mg/ 250ml (Zithromax 50 (12/21/24 22:45) Furosemide Injection (Lasix Injection) (12/21/24 22:45) Vital Signs Date Time Temp Pulse Resp B/P (MAP) Pulse Ox O2 Delivery O2 Flow Rate FiO2 12/21/24 22:00 Nasal Cannula* 4 36 12/21/24 22:00 98.3 124 17 120/71 (87) 95 98.3 12/21/24 20:22 114 12/21/24 20:20 98.4 118 18 133/74 92 98.4 Laboratory Tests Test 12/21/24 21:20 Lactic Acid Level 2.4 mmol/L (0.4-2.0) *H White Blood Count 10.8 10^3/uL (4.4-10.8) Departure 1 Departure Time of Disposition: 22:43 Impression: Primary Impression: Diastolic congestive heart failure Additional Impressions: Pneumonitis Hypokalemia Disposition: ADMITTED INPATIENT Admit to: Tele Condition: Guarded Discharged With: Self Comments 79-year-old female with a history of congestive heart failure now complains of bilateral leg swelling and shortness of breath. Chest x-ray shows cardiomegaly. Ultrasound negative for DVT. BNP is elevated. Hypokalemia 3.2. Lactic acid elevated. Patient was given Lasix and Rocephin and azithromycin antibiotics. Patient will need admission for diastolic heart failure and hypokalemia and pneumonitis Critical Care Note Critical Care Time?: Yes (35 min-critical care time only) Critical care comment: Shortness of breath Total critical care time: Approximately 36 minutes Due to a high probability of clinically significant, life threatening deterioration, the patient required my highest level of preparedness to intervene emergently and I personally spent this critical care time directly and personally managing the patient. This critical care time included obtaining a hi story; examining the patient; pulse oximetry; ordering and review of studies; arranging urgent treatment with development of a management plan; evaluation of patient's response to treatment; frequent reassessment; and, discussions with other providers. This critical care time was performed to assess and manage the high probability of imminent, life-threatening deterioration that could result in multi-organ failure. It was exclusive of separately billable procedures and treating other patients. Stability Stability form required: No Heart Score Heart Score: Heart Score Response (Comments) Value History Moderate Suspicious 1 EKG Repolarization Disturb 1 Age >65 2 Risk Factors >3 or Hx ASHD 2 Troponin Normal limit 0 Total 6 I personally scribed for ZELALEM ERVIN MD ([email or web address]) on 12/21/24 at 20:43. Electronically submitted by Tyron Antonio ([email or web address]). ZELALEM ERVIN MD Dec 21, 2024 20:43
--- NOTE | 2024-12-21 21:18 | DVH ---
CLINICAL HISTORY: BLE pain and swelling TECHNIQUE: Color and duplex doppler imaging of the bilateral lower extremity veins was performed. Ves guille compression if possible was also performed. WID: COMPARISON: US BILAT LOWER DVT on DOS: 09/27/24, US RT UPPER DVT on DOS: 07/14/24, US BILAT LOWER DVT o n DOS: 07/08/24 FINDINGS: Subcutaneous edema in the bilateral lower extremities. Right Lower Extremity: Right common femoral vein: Normal compressibility and flow. Right femoral vein: Normal compressibility and flow. Right popliteal vein: Normal compressibility and flow. Proximal calf veins are normally compressible. Left Lower Extremity: Left common femoral vein: Normal compressibility and flow. Left femoral vein: Normal compressibility and flow. Left popliteal vein: Normal compressibility and flow. Proximal calf veins are normally compressible. IMPRESSION: 1. NO SONOGRAPHIC EVIDENCE FOR DEEP VENOUS THROMBOSIS IN THE BILATERAL LOWER EXTREMITY VEINS. 2. Subcutaneous edema in the bilateral lower extremities.
--- NOTE | 2024-12-21 21:29 | DVH ---
CHEST RADIOGRAPH Indication: SOB Technique: Single frontal view of the chest was obtained Comparison: XY CHEST PORTABLE on DOS: 10/25/24, XY CHEST PORTABLE on DOS: 10/22/24, XY CHEST PORTABLE on DOS: 10/21/24 FINDINGS: Lines and Tubes: PICC line has been removed Lungs: No focal consolidation. Pleura: No effusion. No pneumothorax. Cardiomediastinal contours: Cardiomegaly Bones: No acute osseous abnormality. IMPRESSION: 1. Cardiomegaly.
[2024-12-21 21:40] LABS: Hematocrit 43.7 % (36.0-46.0); Hemoglobin 14.2 g/dL (12.2-16.2); Mean Corpuscular Hemoglobin 27.5 pg (28.0-32.0); Mean Corpuscular Volume 84.6 fL (80.0-100.0); Nucleated Red Blood Cells % 0.0 %
[2024-12-21 21:53] LABS: INR 1.31 (0.9-1.15); Partial Thromboplastin Time 30.5 SEC (24.5-34.5); Prothrombin Time 13.5 sec (9.3-11.8)
[2024-12-21 21:56] LABS: Albumin 3.9 g/dL (3.2-4.8); Anion Gap 11 (5-15); BUN/Creatinine Ratio 11.5 (10.0-20.0); Bilirubin, Total 1.0 mg/dL (0.2-1.0); Blood Urea Nitrogen 11 mg/dL (9-23); Calcium 9.2 mg/dL (8.7-10.4); Chloride 99 mmol/L (98-107); Magnesium 1.7 mg/dL (1.6-2.6); Sodium 141 mmol/L (136-145); Total Protein 7.3 g/dL (5.7-8.2)
[2024-12-21 21:59] LABS: Alanine Aminotransferase < 9 U/L (7-40); Alkaline Phosphatase 142 U/L (46-116); Carbon Dioxide 31 mmol/L (20-31); Glucose 114 mg/dL (74-106); Potassium 3.2 mmol/L (3.5-5.1)
[2024-12-21 22:03] LABS: Lactic Acid w/Reflex 2.4 mmol/L (0.4-2.0)
[2024-12-21] MEDS: FUROSEMIDE 20 MG/2 ML VIAL IV ONE (23:01)
[2024-12-21] MEDS: POTASSIUM CHL 20 Meq TABLET PO ONE (23:01)
--- NOTE | 2024-12-21 23:38 | DVHHP2 ---
History of Present Illness Reason for Visit: Acute on chronic diastolic heart failure History of Present Illness The patient is a 79 years old female bed-bound with past medical history of cancer, AFib, asthma, CHF CK F, dementia, and hypertension who presented to [facility] ED with complaint of shortness of breaths. Patient reports she has been experiencing progressive shortness of breaths with worsening pedal edema, increased work of breathing, getting worse that prompted this visit. Patient was seen evaluated in the ED, laboratory data shows WBC 10.8, platelets 302, sodium 141, potassium 3.2, BUN 11, creatinine 0.95, glucose 114, calcium 9.2, BNP 922.82, lactic acid 2.4, blood pressure 116/64, heart rate 124, temperature 98.3 F, O2 saturation 95% oxygen. Extremity venous study shows no sonographic evidence for deep venous thrombosis in the bilateral lower extremity veins; noted subcutaneous edema in the bilateral lower extremities. Please see medication orders section in the computer. On my assessment, patient denied chest pain, no headache, no dizziness, no diaphoresis, currently on oxygen, no abdominal pain, no diarrhea, no nausea, no vomiting, no fever, no chills. Patient was admitted further evaluation and medical management. Past Medical History AFIB, Asthma, Cancer, CHF, CKF, Dementia, HTN Past Surgical History Appendectomy, Cholecystectomy, Hysterectomy, Tonsillectomy Family History Reviewed, noncontributory to the management of this case. Past Social History The patient lives at home, denies smoking, alcohol or illicit drugs abuse. Review of Systems Constitutional: Yes: Weakness; No: Fever, Chills, Sweats, Malaise, Other Eyes: No: Pain, Vision change, Conjunctivae inflammation, Eyelid inflammation, Other, Redness ENT: No: Ear pain, Ear discharge, Nose pain, Nose discharge, Nose congestion, Mouth pain, Mouth swelling, Throat pain, Throat swelling, Other Respiratory: Shortness of breath, SOB with excertion; No: Cough, Dry, Wheezing, Hemoptysis, Pleuritic Pain, Sputum, Wheezing, Other Cardiovascular: Edema; No: Chest Pain, Palpitations, Orthopnea, Paroxysmal Noc. Dyspnea, Lt Headedness, Other Gastrointestinal: No: Nausea, Vomiting, Abdominal Pain, Diarrhea, Constipation, Melena, Hematochezia, Other Genitourinary: No Dysuria, No Frequency, No Incontinence, No Hematuria, No Retention; Other (Hutchinson catheter in place) Musculoskeletal: No: other, neck pain, shoulder pain, arm pain, back pain, hand pain, leg pain, foot pain Skin: No: Rash, Lesions, Jaundice, Bruising, Other Neurological: No: Weakness, Numbness, Incoordination, Change in speech, Confusion, Seizures, Other Allergies: Coded Allergies: Diphenhydramine (Verified Allergy, Unknown, 09/21/22) Uncoded Allergies: TAPE (Allergy, Unknown, 09/21/22) Exam Vital Signs Vital Signs Date Time Temp Pulse Resp B/P (MAP) Pulse Ox O2 Delivery O2 Flow Rate FiO2 12/21/24 23:01 115/64 12/21/24 22:00 Nasal Cannula* 4 36 12/21/24 22:00 98.3 124 17 95 98.3 General Appearance: Alert, Oriented X3, Cooperative, No acute distress HEENT: Atraumatic, PERRLA, EOMI, Mucous membr. moist/pink Respiratory: Normal air movement Cardiovascular: Regular rate, Normal S1, Normal S2, No murmurs Abdominal: Normal bowel sounds, Soft, No tenderness, No hepatospenomegaly, No masses Extremities: No clubbing, No cyanosis, Normal pulses, No tenderness/swelling, Other (Lower extremity edema) Skin: No rashes, No significant lesion Neuro: Normal speech, Normal tone, Sensation intact, Cranial nerves 3-12 NL, Reflexes 2+, Other (Generalized weakness) Psych/Mental Status: Mental status NL, Mood NL Labs/Xrays Labs Test 12/21/24 23:10 12/21/24 21:20 Range/Units White Blood Count 10.8 4.4-10.8 10^3/uL Red Blood Count 5.17 4.0-5.20 10^6/uL Hemoglobin 14.2 12.2-16.2 g/dL Hematocrit 43.7 36.0-46.0 % Mean Corpuscular Volume 84.6 80.0-100.0 fL Mean Corpuscular Hemoglobin 27.5 L 28.0-32.0 pg Mean Corpuscular Hemoglobin Concent 32.5 32.0-36.0 g/dL Red Cell Distribution Width 19.2 H 11.8-14.3 % Platelet Count 302 140-450 10^3/uL Mean Platelet Volume 8.0 6.9-10.8 fL Neutrophils (%) (Auto) 80.7 H 37.0-80.0 % Lymphocytes (%) (Auto) 7.2 L 10.0-50.0 % Monocytes (%) (Auto) 5.7 0.0-12.0 % Eosinophils (%) (Auto) 5.8 0.0-7.0 % Basophils (%) (Auto) 0.6 0.0-2.0 % Neutrophils # (Auto) 8.8 H 1.6-8.6 10 ^3/uL Lymphocytes # (Auto) 0.8 0.4-5.4 10 ^3/uL Monocytes # (Auto) 0.6 0-1.3 10 ^3/uL Eosinophils # (Auto) 0.6 0-0.8 10 ^3/uL Basophils # (Auto) 0.1 0-0.2 10 ^3/uL Nucleated Red Blood Cells 0.0 % Prothrombin Time 13.5 H 9.3-11.8 sec Prothrombin Time INR 1.31 H 0.9-1.15 Activated Partial Thromboplast Time 30.5 24.5-34.5 SEC Sodium Level 141 136-145 mmol/L Potassium Level 3.2 L 3.5-5.1 mmol/L Chloride Level 99 98-107 mmol/L Carbon Dioxide Level 31 20-31 mmol/L Anion Gap 11 5-15 Blood Urea Nitrogen 11 9-23 mg/dL Creatinine 0.96 0.550-1.02 mg/dL Glomerular Filtration Rate Calc 61 >90 mL/min BUN/Creatinine Ratio 11.5 10.0-20.0 Serum Glucose 114 H 74-106 mg/dL Calcium Level 9.2 8.7-10.4 mg/dL Magnesium Level 1.7 1.6-2.6 mg/dL Total Bilirubin 1.0 0.2-1.0 mg/dL Aspartate Amino Transferase (AST) 22 13-40 U/L Alanine Aminotransferase (ALT) < 9 7-40 U/L Alkaline Phosphatase 142 H 46-116 U/L B-Type Natriuretic Peptide 922.82 0-100 pg/mL Total Protein 7.3 5.7-8.2 g/dL Albumin 3.9 3.2-4.8 g/dL PATIENT: SHILA LERNER Jermaine ACCT: [id number] UNIT: [id number] : 1945 LOC: ER ROOM / BED: / AGE / SEX: 79 / F ADM STATUS: REG ER SERVICE 31 ORDERING PHYSICIAN: ZELALEM ERVIN MD PROCEDURE(s): BLDVT - BiLat Lower DVT REASON: BLE pain and swelling ORDER NUMBER(s): [id number], ACCESSION NUMBER(s): [id number] CLINICAL HISTORY: BLE pain and swelling TECHNIQUE: Color and duplex doppler imaging of the bilateral lower extremity veins was performed. Vessel compression if possible was also performed. WID: COMPARISON: US BILAT LOWER DVT on DOS: 09/27/24, US RT UPPER DVT on DOS: 07/14/24, US BILAT LOWER DVT on DOS: 07/08/24 FINDINGS: Subcutaneous edema in the bilateral lower extremities. Right Lower Extremity: Right common femoral vein: Normal compressibility and flow. Right femoral vein: Normal compressibility and flow. Right popliteal vein: Normal compressibility and flow. Proximal calf veins are normally compressible. Left Lower Extremity: Left common femoral vein: Normal compressibility and flow. Left femoral vein: Normal compressibility and flow. Left popliteal vein: Normal compressibility and flow. Proximal calf veins are normally compressible. IMPRESSION: 1. NO SONOGRAPHIC EVIDENCE FOR DEEP VENOUS THROMBOSIS IN THE BILATERAL LOWER EXTREMITY VEINS. 2. Subcutaneous edema in the bilateral lower extremities. ORDERING PHYSICIAN: ZELALEM ERVIN MD PROCEDURE(s): CXR1 - CHEST XRAY 1 VIEW REASON: SOB ORDER NUMBER(s): [id number], ACCESSION NUMBER(s): [id number] CHEST RADIOGRAPH Indication: SOB Technique: Single frontal view of the chest was obtained Comparison: XY CHEST PORTABLE on DOS: 10/25/24, XY CHEST PORTABLE on DOS: 10/22/24, XY CHEST PORTABLE on DOS: 10/21/24 FINDINGS: Lines and Tubes: PICC line has been removed Lungs: No focal consolidation. Pleura: No effusion. No pneumothorax. Cardiomediastinal contours: Cardiomegaly Bones: No acute osseous abnormality. IMPRESSION: 1. Cardiomegaly. SEPSIS Sepsis Screen Date sepsis recognized/suspect: Dec 21, 2024 Time Sepsis recognized/suspect: 2199 Recent Procedure: No On Antibiotic Therapy: No Respiratory Rate >20: No Heart Rate >90: Yes Temp<36 C (96.8 F) or >38.3 C: No SBP <90 or MAP <65 mmHG: No New Acute Mental Status Change: No Is the patient on CPAP, BIPAP,: No Physician Orders Troponin-I Hs (12/22/24 00:00) Troponin-I Hs (12/22/24 03:00) Troponin-I Hs (12/22/24 06:00) Blood Culture (12/21/24 20:32) Chest Xray 1 View (12/21/24 20:32) Bilat Lower Dvt (12/21/24 20:32) Azithromycin 500mg/ 250ml (Zithromax 50 (12/21/24 22:45) Vital Signs Date Time Temp Pulse Resp B/P (MAP) Pulse Ox O2 Delivery O2 Flow Rate FiO2 12/21/24 23:01 115/64 12/21/24 22:00 Nasal Cannula* 4 36 12/21/24 22:00 98.3 124 17 120/71 (87) 95 98.3 12/21/24 20:22 114 12/21/24 20:20 98.4 118 18 133/74 92 98.4 Laboratory Tests Test 12/21/24 21:20 12/21/24 23:10 Lactic Acid Level 2.4 mmol/L (0.4-2.0) *H Pending White Blood Count 10.8 10^3/uL (4.4-10.8) Medications Medications Dose Ordered Sig/Leonard Route Start Time Stop Time Status Last Admin Dose Admin Ceftriaxone Sodium 50 ml @ 100 mls/hr ONCE ONCE IV 12/21/24 22:45 12/21/24 23:14 DC 12/21/24 23:00 100 MLS/HR Furosemide 20 mg ONCE ONCE IV 12/21/24 22:45 12/21/24 22:46 DC 12/21/24 23:01 20 MG Potassium Chloride 20 meq ONCE ONCE PO 12/21/24 22:45 12/21/24 22:46 DC 12/21/24 23:01 20 MEQ Assessment/Plan Assessment/Plan Diastolic congestive heart failure Pneumonitis Hypokalemia Generalized weakness Plan 1. Admit to telemetry unit 2. Breathing treatment 3. Pain control management 4. IV antibiotic management 5. Management of fluids and electrolytes 6. Consultation for Cardiology/wound care 7. Diagnostic test extremity venous study 8. DVT prophylaxis-on Eliquis 9. Repeat labs CBC, CMP in a.m. 10. Home medication reviewed and reconciled 11. Continue with current medical management 12. Treatment plan discussed with patient and RN. Patient verbalized understanding. Plan discussed with: Patient, Other (RN) Problem List: (1) Diastolic congestive heart failure (2) Pneumonitis (3) Hypokalemia (4) Generalized weakness Date of Service: Dec 21, 2024 Billing Provider: MEREDITH CRENSHAW DNP Common Visit Codes: [id number] INP/OBS CARE (HIGH) MEREDITH CRENSHAW DNP Dec 21, 2024 23:38
[2024-12-21] MEDS ORDERED: NITROGLYCERIN 0.4 MG SL TAB SL PRN (23:45)
[2024-12-21] MEDS ORDERED: MORPHINE SULFATE INJ 2 MG/ml SYRG IV PRN (23:45)
[2024-12-21] MEDS ORDERED: DOCUSATE SOD 100 MG CAP PO PRN (23:45)
[2024-12-21] MEDS ORDERED: IPRATROPIUM BROM 0.5 MG/2.5ML INH SOL NEB PRN (23:45)
[2024-12-21] MEDS ORDERED: ACETAMINOPHEN 325 MG TAB PO PRN (23:45)
[2024-12-21] MEDS ORDERED: HYDROcodone-ACET 5/325MG TAB PO PRN (23:45)
[2024-12-21] MEDS ORDERED: ONDANSETRON HCL 4 MG/2 ML VIAL IV PRN (23:45)
[2024-12-22] VITALS (12 sets, daily range): BP systolic 99–142; BP diastolic 71–102; PULSE 95–116; RESP 13–24; TEMP 96.8–98.3; O2SAT 92–99
[2024-12-22] MEDS: FUROSEMIDE 20 MG/2 ML VIAL IV ONE (00:31)
[2024-12-22 04:03] LABS: Hematocrit 41.2 % (36.0-46.0); Hemoglobin 14.0 g/dL (12.2-16.2); Mean Corpuscular Hemoglobin 32.8 pg (28.0-32.0); Mean Corpuscular Volume 96.3 fL (80.0-100.0); Nucleated Red Blood Cells % 0.0 %
[2024-12-22 04:55] LABS: Alanine Aminotransferase 34 U/L (7-40); Anion Gap 12 (5-15); BUN/Creatinine Ratio 15.8 (10.0-20.0); Bilirubin, Total 0.6 mg/dL (0.2-1.0); Blood Urea Nitrogen 15 mg/dL (9-23); Carbon Dioxide 27 mmol/L (20-31); Chloride 102 mmol/L (98-107); Glucose 105 mg/dL (74-106); Sodium 141 mmol/L (136-145); Total Protein 6.1 g/dL (5.7-8.2)
[2024-12-22 04:57] LABS: Albumin 2.8 g/dL (3.2-4.8); Alkaline Phosphatase 143 U/L (46-116); Calcium 7.5 mg/dL (8.7-10.4)
[2024-12-22 04:58] LABS: Potassium 2.4 mmol/L (3.5-5.1)
[2024-12-22] MEDS: SODIUM CHLOR 0.9% PF (SALINE LOCK) 10ML VIAL/SYR IV SCH (05:50)
[2024-12-22] MEDS: POTASSIUM EFFERVESENT TAB 25 MEQ PO ONE (05:51)
[2024-12-22] MEDS: APIXABAN 5 MG TAB PO SCH (10:15)
[2024-12-22] MEDS: CARVEDILOL 3.125 MG TAB PO SCH (10:15)
[2024-12-22] MEDS: FUROSEMIDE 20 MG/2 ML VIAL IV SCH (10:16)
--- NOTE | 2024-12-22 11:03 | DVHINCON2 ---
Date Seen: Dec 22, 2024 Referring Physician JETT Joseph Reason for Consultation CHF exacerbation History of Present Illness This is a 79-year-old female patient who presents to the emergency room with chief complaint of shortness of breath and bilateral lower extremity swelling for one week. Cardiology has been consulted at this time for CHF exacerbation. Initial twelve lead electrocardiogram reveals atrial fibrillation with right bundle branch block and PVC. Initial troponin level of 30ng/L. Initial BNP level of 922.82pg/mL. Significant past medical history includes congestive heart failure, hypertension, hyperlipidemia, atrial fibrillation (on Eliquis), COPD on home O2, asthma, chronic kidney disease, breast cancer status post bilateral mastectomy, arthritis, anxiety, and morbid obesity. The patient denies following up with a digital product manager in the outpatient setting. The patient was on hospice care prior to emergency room arrival. Past Medical History Past medical history reviewed. No other significant than mentioned above. Past Surgical History Bilateral mastectomy Tonsillectomy Cholecystectomy Appendectomy Family History: Colon cancer G8 MOTHER Diabetes mellitus G8 MOTHER Family History Family history reviewed. Social History Patient has a 145 pack years history (5 PPD X 29 years), quit smoking approximately 20 years ago The patient denies any drug use Patient denies any alcohol use Allergies: Coded Allergies: Diphenhydramine (Verified Allergy, Unknown, 09/21/22) Uncoded Allergies: TAPE (Allergy, Unknown, 09/21/22) Home Meds Active Scripts Hydrocodone-Acetaminophen (Hydrocodone Bitartrate/AC 5-325 mg) 1 Tab Tab, 1 TAB PO QID PRN, #30 TAB Prov:NICOL ROMAN MD 10/02/24 Sulfamethoxazole W/Trimethopri (Bactrim Ds Tablet) 1 Tab Tb, 1 TAB PO BID for 10 Days, #20 TAB Prov:CESAR HAYES 07/15/24 Doxycycline Hyclate (Doxycycline Hyclate) 50 Mg Cap, 100 MG PO BID for 10 Days, #20 CAP Prov:CESAR HAYES RESIDENT 07/15/24 Naloxone HCl (Narcan) 4 Mg/0.1 Ml Spr, 4 MG NA PRN PRN for 1 Day, #1 SPRAY 1 Refill Prov:DEONDRE GLEZ MD 05/17/24 Oxycodone Hcl (OxyCONTIN ER Tablet) 20 Mg Tb, 1 TAB PO BID for 7 Days, #14 TAB Prov:DEONDRE GLEZ MD 05/17/24 Albuterol Sulfate (Albuterol Sulfate Hfa) 108 Mcg/Act Aer, 108 MCG IN BID for 30 Days, #1 AER 0 [facility] 05/16/24 Umeclidinium Maramec (Incruse Ellipta) 62.5 Mcg/Inh Inh, 62.5 MCG IN DAILY for 30 Days, #1 INHALER 0 Refills Prov:[facility] 05/16/24 Empagliflozin (Jardiance) 10 Mg Tab, 10 MG PO DAILY for 30 Days, #30 TAB 1 [facility]/16/24 Apixaban Base (ELIQUIS) 5 Mg Tab, 1 TAB PO BID for 30 Days, #60 TAB Prov:[facility] 05/16/24 Lisinopril (Lisinopril) 20 Mg Tab, 1 TAB PO DAILY for 30 Days, #30 TAB 5 Refills Prov:[facility] 05/16/24 Calcium Carbonate (Antacid) (Antacid) 750 Mg Chw, 750 MG PO DAILYPRN PRN for 30 Days, #30 TAB.CHEW Prov:[facility] 05/16/24 Aspirin (Aspir-Low) 81 Mg Tab, 81 MG PO DAILY for 30 Days, #30 MG Prov[facility] 05/16/24 Ondansetron HCl (Ondansetron) 4 Mg Tab, 4 MG PO PRN PRN for NAUSEA / VOMITING for 30 Days, #30 TAB Prov:[facility] 05/16/24 Atorvastatin Calcium (ATORVASTATIN CALCIUM) 40 Mg Tab, 1 TAB PO DAILY for 30 Days, #30 TAB Prov:[facility] 05/16/24 Amlodipine Besylate (Amlodipine Besylate) 5 Mg Tab, 1 TAB PO DAILY for 30 Days, #30 TAB Prov:[facility] 05/16/24 Metoprolol Succinate (Metoprolol Succinate Er) 25 Mg Tab, 1 TAB PO DAILY for 30 Days, #30 TAB Prov:CHEN SOLANO RESIDENT 05/16/24 Reported Medications Mometasone Furoate-Formoterol (Dulera) 1 Aer Aer, 2 PUFF INH BID 07/09/24 Allopurinol (Allopurinol) 300 Mg Tab, 1 TAB PO DAILY 07/09/24 Furosemide (Furosemide) 20 Mg Tab, 1 TAB PO BID 07/09/24 Mometasone Furoate-Formoterol (Dulera) 1 Aer Aer, INH UD for 30 Days, #13 02/02/24 Potassium Chloride (Potassium Chloride ER) 10 Meq Tab, 1 TAB PO DAILY for 30 Days, #30 02/02/24 Senna (Sennosides) 8.6 Mg Tab, 8.6 MG PO, TAB 02/02/24 Cholecalciferol (VITAMIN D3) 2,000 Unit Tab, 1 TAB PO DAILY for 30 Days 02/02/24 Home Meds Home medications reviewed. Current Medications Current Medications Medications (Trade) Dose Ordered Sig/Leonard Route PRN Reason Start Time Stop Time Status Last Admin Albuterol (Ventolin Medneb) 2.5 mg Q4HPRN PRN NEB SHORTNESS OF BREATH 12/21/24 23:45 Ipratropium Maramec (Atrovent Medneb) 0.5 mg Q4HPRN PRN NEB SHORTNESS OF BREATH 12/21/24 23:45 Carvedilol (Coreg Tablet) 3.125 mg Q12HR PO 12/22/24 10:00 12/22/24 10:15 Furosemide (Lasix Injection) 20 mg DAILY IV 12/22/24 10:00 12/22/24 10:16 Apixaban (Eliquis) 5 mg BID PO 12/22/24 10:00 12/22/24 10:15 Sodium Chloride (Saline Lock Ns) 10 ml Q8HR IV 12/22/24 06:00 12/22/24 05:50 Acetaminophen/ Hydrocodone Bitart (Kula 5/325MG Tab) 1 tab Q4HP PRN PO MODERATE PAIN (4-6 PAIN SCALE) 12/21/24 23:45 Ondansetron HCl (Zofran) 4 mg Q4HP PRN IV NAUSEA / VOMITING 12/21/24 23:45 Docusate Sodium (Colace Capsule) 100 mg BIDPRN PRN PO FOR CONSTIPATION 12/21/24 23:45 Acetaminophen (Tylenol Tablet) 650 mg Q6HP PRN PO PAIN SCALE 1-3 OR TEMP>100.4 12/21/24 23:45 Nitroglycerin (Ntrostat Sublingual) 0.4 mg Q5MINP PRN SL FOR CHEST PAIN 12/21/24 23:45 Morphine Sulfate 2 mg Q30M PRN IV FOR CHEST PAIN 12/21/24 23:45 Review of Systems Constitutional: No symptom reported Ears, Nose, & Throat: No symptom reported Eyes: No symptom reported Neurological: No symptoms reported Pulmonary/Respiratory: Shortness of breath Cardiovascular: Bilateral lower extremity edema Gastrointestinal: No symptom reported Genitourinary: No symptom reported Musculoskeletal: No symptom reported Skin: No symptom reported Psychiatric: No symptom reported Endocrine: No symptom reported Hematologic/Lymphatic: No symptom reported Vital Signs Vital Signs Date Time Temp Pulse Resp B/P (MAP) Pulse Ox O2 Delivery O2 Flow Rate FiO2 12/22/24 10:16 109/69 12/22/24 10:15 105 12/22/24 07:35 98.4 13 94 98.4 12/22/24 07:35 Nasal Cannula* 6 44 Physical Exam General Appearance: Cooperative. Well-developed. Well-nourished. No acute di stress. Pulmonary/Respiratory: Clear, bilateral breaths sounds. Cardiovascular/Chest: Irregularly irregular rate and rhythm. Peripheral Pulses: 2+ Radial (R). 2+ Radial (L). 1+ Pedal (R). 1+ Pedal (L) Abdominal Exam: Normal bowel sounds. Ankle Exam: 3+ pitting edema Lower extremities: 3+ pitting edema Neuro/Mental Status: A/OX4, coherent. Thoughts/Psych: Normal thought pattern. Appropriate mood and affect. Good judgment and insight. Appearance: No acute distress. Skin Exam: Multiple blisters to bilateral lower extremities. Weeping wounds to bilateral lower extremities. Bilateral lower extremities wrapped Labs/Diagnostic Data Labs Test 12/22/24 09:22 12/22/24 03:34 12/22/24 00:18 12/21/24 23:10 Range/Units Potassium Level 3.5 3.5-5.1 mmol/L White Blood Count 10.4 4.4-10.8 10^3/uL Red Blood Count 4.28 4.0-5.20 10^6/uL Hemoglobin 14.0 12.2-16.2 g/dL Hematocrit 41.2 36.0-46.0 % Mean Corpuscular Volume 96.3 # 80.0-100.0 fL Mean Corpuscular Hemoglobin 32.8 H 28.0-32.0 pg Mean Corpuscular Hemoglobin Concent 34.0 32.0-36.0 g/dL Red Cell Distribution Width 15.7 H 11.8-14.3 % Platelet Count 149 140-450 10^3/uL Mean Platelet Volume 9.2 6.9-10.8 fL Neutrophils (%) (Auto) 80.4 H 37.0-80.0 % Lymphocytes (%) (Auto) 14.1 10.0-50.0 % Monocytes (%) (Auto) 4.8 0.0-12.0 % Eosinophils (%) (Auto) 0.5 0.0-7.0 % Basophils (%) (Auto) 0.2 0.0-2.0 % Neutrophils # (Auto) 8.3 1.6-8.6 10 ^3/uL Lymphocytes # (Auto) 1.5 0.4-5.4 10 ^3/uL Monocytes # (Auto) 0.5 0-1.3 10 ^3/uL Eosinophils # (Auto) 0.1 0-0.8 10 ^3/uL Basophils # (Auto) 0 0-0.2 10 ^3/uL Nucleated Red Blood Cells 0.0 % Sodium Level 141 136-145 mmol/L Chloride Level 102 98-107 mmol/L Carbon Dioxide Level 27 20-31 mmol/L Anion Gap 12 5-15 Blood Urea Nitrogen 15 9-23 mg/dL Creatinine 0.95 0.550-1.02 mg/dL Glomerular Filtration Rate Calc 61 >90 mL/min BUN/Creatinine Ratio 15.8 10.0-20.0 Serum Glucose 105 74-106 mg/dL Calcium Level 7.5 L 8.7-10.4 mg/dL Total Bilirubin 0.6 0.2-1.0 mg/dL Aspartate Amino Transferase (AST) 70 H 13-40 U/L Alanine Aminotransferase (ALT) 34 7-40 U/L Alkaline Phosphatase 143 H 46-116 U/L Total Protein 6.1 5.7-8.2 g/dL Albumin 2.8 L 3.2-4.8 g/dL Troponin I High Sensitivity 34 </=34 ng/L Lactic Acid Level 1.7 0.4-2.0 mmol/L Test 12/21/24 21:20 Range/Units Prothrombin Time 13.5 H 9.3-11.8 sec Prothrombin Time INR 1.31 H 0.9-1.15 Activated Partial Thromboplast Time 30.5 24.5-34.5 SEC Magnesium Level 1.7 1.6-2.6 mg/dL B-Type Natriuretic Peptide 922.82 0-100 pg/mL Assessment Acute on chronic decompensated, HFrEF, NYHA class III (EF 40% per ventriculography on recent angiogram) Mild CAD involving the RCA Hypertension Hyperlipidemia Atrial fibrillation status post two direct current cardioversions, likely persistent (on Eliquis) Moderate to severe tricuspid regurgitation Moderate to severe mitral regurgitation Chronic kidney disease Hypokalemia ? Bilateral lower extremity cellulitis Pulmonary hypertension COPD on home O2 Asthma History of tobacco use Morbidly obese, Class 3 Plan/Recommendation We will continue with the following plan/recommendations (Dr. Vitale): We will proceed with obtaining a transthoracic echocardiogram to evaluate cardiac function. Recent coronary angiogram on 09/29/24 reveals an EF of approximately 40% via ventriculography, previous echocardiogram on 09/27/24 revealed an EF of 60%. We will initiate guideline medical therapy for CHF as tolerated. Hold SGLT2i (Jardiance) at this time recent history of UTI. Consider adding Jardiance once urinalysis is done and excludes urinary tract infection. Preload and afterload reduction. Continue with strict intake and output, daily weights, and maintaining fluid restriction. [id number] VASc score: 5 points, HAS- BLED: 3 points. Continue NOAC therapy. Continue beta-keyon for rate control. Avoid antiarrhythmic agents given atrial fibrillation likely persistent at this point. Of note, the patient recently underwent a right and left heart catheterization on 09/29/2024 which revealed normal left ventricular end- diastolic pressure with pulmonary hypertension, decreased left ventricular ejection fraction of 40%, and mild CAD involving the RCA. Patient denies any cardiac symptoms. Continue with close cardiac surveillance and notify cardiology team for any ECG changes. Thank you for allowing us to care for this patient. Please call with any questions or concerns. Critical care time spent: 44 minutes This medical document was created using an electronic medical record system with voice recognition software and computerized dictation system. Although this document has been carefully reviewed, there might still be some phonetic and typographical errors. Occasional wrong-word or ``sound-alike substitutions may have occurred due to the inherent limitations of voice recognition software. These areas are purely typographical due to imperfections of the software programs and do not reflect any compromise in the patient's medical care. Please read the chart carefully and recognize, using context, where these substitutions have occurred. Plan discussed with: Patient, Spouse NYHA Physical activity limitations: Class3(Marked) ordinary (activity causes symtoms) Date of Service: Dec 22, 2024 Billing Provider: SUNIL OROURKE Cardiology Common Codes: [id number] INP/OBS CARE (High) Cardiology Consultation Codes: [id number] CONSULT <45MIN SUNIL OROURKE Dec 22, 2024 11:03
--- NOTE | 2024-12-22 11:32 | DVHPN2 ---
Reviewed: Care Plan, H&P, Labs, Medications, Previous Orders, Radiology Changes from previous H/P or p: No Changes Eyes: No Pain, No Vision change, No Conjunctivae inflammation, No Eyelid inflammation, No Other, No Redness ENT: No Ear pain, No Ear discharge, No Nose pain, No Nose discharge, No Nose congestion, No Mouth pain, No Mouth swelling, No Throat pain, No Throat swelling, No Other Cardiovascular: No Chest Pain, No Palpitations, No Orthopnea, No Paroxysmal Noc. Dyspnea; Edema; No Lt Headedness, No Other Respiratory: No Cough, No Dry; Shortness of breath, SOB with excertion; No Wheezing, No Hemoptysis, No Pleuritic Pain, No Sputum, No Other Gastrointestinal: No Nausea, No Vomiting, No Abdominal Pain, No Diarrhea, No Constipation, No Melena, No Hematochezia, No Other Genitourinary: No Dysuria, No Frequency, No Incontinence, No Hematuria, No Retention; Other (Hutchinson catheter in place) Musculoskeletal: No other, No neck pain, No shoulder pain, No arm pain, No back pain, No hand pain, No leg pain, No foot pain Skin: No Rash, No Lesions, No Jaundice, No Bruising, No Other Objective Vitals Vital Signs Date Time Temp Pulse Resp B/P (MAP) Pulse Ox O2 Delivery O2 Flow Rate FiO2 12/22/24 10:16 109/69 12/22/24 10:15 105 12/22/24 07:35 98.4 13 94 98.4 12/22/24 07:35 Nasal Cannula* 6 44 Intake/Output Intake and Output 12/22/24 07:00 Intake Total 300 ml Balance 300 ml Intake IV Total 300 ml Medications Current Medications Medications Dose Ordered Sig/Leonard Route Start Time Stop Time Status Last Admin Dose Admin Albuterol 2.5 mg Q4HPRN PRN NEB 12/21/24 23:45 Ipratropium Hospers 0.5 mg Q4HPRN PRN NEB 12/21/24 23:45 Carvedilol 3.125 mg Q12HR PO 12/22/24 10:00 12/22/24 10:15 3.125 MG Furosemide 20 mg DAILY IV 12/22/24 10:00 12/22/24 10:16 20 MG Apixaban 5 mg BID PO 12/22/24 10:00 12/22/24 10:15 5 MG Sodium Chloride 10 ml Q8HR IV 12/22/24 06:00 12/22/24 05:50 10 ML Acetaminophen/ Hydrocodone Bitart 1 tab Q4HP PRN PO 12/21/24 23:45 Ondansetron HCl 4 mg Q4HP PRN IV 12/21/24 23:45 Docusate Sodium 100 mg BIDPRN PRN PO 12/21/24 23:45 Acetaminophen 650 mg Q6HP PRN PO 12/21/24 23:45 Nitroglycerin 0.4 mg Q5MINP PRN SL 12/21/24 23:45 Morphine Sulfate 2 mg Q30M PRN IV 12/21/24 23:45 Laboratory Results Laboratory Tests 12/22/24 03:34 12/22/24 09:22 Chemistry Test 12/21/24 21:20 12/22/24 03:34 Albumin 3.9 g/dL (3.2-4.8) 2.8 g/dL (3.2-4.8) L Calcium Level 9.2 mg/dL (8.7-10.4) 7.5 mg/dL (8.7-10.4) L Magnesium Level 1.7 mg/dL (1.6-2.6) Total Protein 7.3 g/dL (5.7-8.2) 6.1 g/dL (5.7-8.2) Coagulation Test 12/21/24 21:20 Prothrombin Time 13.5 sec (9.3-11.8) H Prothrombin Time INR 1.31 (0.9-1.15) H Activated Partial Thromboplast Time 30.5 SEC (24.5-34.5) Cardiac Markers Test 12/21/24 21:20 B-Type Natriuretic Peptide 922.82 pg/mL (0-100) LFT Test 12/21/24 21:20 12/22/24 03:34 Alanine Aminotransferase (ALT) < 9 U/L (7-40) 34 U/L (7-40) Alkaline Phosphatase 142 U/L (46-116) H 143 U/L (46-116) H Aspartate Amino Transferase (AST) 22 U/L (13-40) 70 U/L (13-40) H Total Bilirubin 1.0 mg/dL (0.2-1.0) 0.6 mg/dL (0.2-1.0) Labs and/or images reviewed: Labs reviewed by me, Image(s) reviewed by me Assessment/Plan Assessment/Plan Acute on chronic hypoxic respiratory failure: Oxygen nasal cannula Possible community-acquired pneumonia: Rocephin and azithromycin IV Acute on chronic diastolic congestive heart failure with ejection fraction 60 percent: Lasix Status post left heart catheterization by Dr. Julio on 09/29/2024 with the findings of mild right coronary artery disease, advised aggressive risk factor management Paroxysmal atrial fibrillation: History of cardioversion; Continue Eliquis Hypertensive heart disease Acute COPD exacerbation Right Hip osteoarthritis History of gout Morbid obesity Time Spent 70 minutes Advanced care planning time 20 minutes Patient is full code Plan discussed with: Patient Date of Service: Dec 22, 2024 Billing Provider: NICOL ROMAN MD Common Visit Codes: [id number] CARE 30-74 MIN NICOL ROMAN MD Dec 22, 2024 11:32
[2024-12-22] MEDS: ALBUTEROL SULF 2.5 MG/0.5ML(0.5%) NEB SOLN NEB PRN (11:47)
[2024-12-22] MEDS: MORPHINE SULF 30 mg ER tab PO ONE (12:38)
[2024-12-22 13:21] LABS: COVID19 ANTIGEN SOFIA FIA NEGATIVE (NEGATIVE)
[2024-12-22] MEDS: AZITHROMYCIN 500MG/ 250ML 250 ML IV ONE (13:53)
[2024-12-22] MEDS: MAGNESIUM SULFATE 1GM/100ML 100 ML IV ONE (15:51)
[2024-12-22] MEDS: MORPHINE SULF 30 mg ER tab PO SCH (22:10)
--- NOTE | 2024-12-22 23:43 | DVHINCON2 ---
Date Seen: Dec 22, 2024 Referring Physician JETT Joseph Reason for Consultation CHF exacerbation History of Present Illness This is a 79-year-old female with a past medical history of congestive heart failure, hypertension, hyperlipidemia, atrial fibrillation (on Eliquis), COPD on home O2, asthma, chronic kidney disease, breast cancer status post bilateral mastectomy, arthritis, anxiety, and morbid obesity who presents to the ED with a complaint of shortness of breath and bilateral lower extremity swelling for one week. Cardiology has been consulted at this time for CHF exacerbation. Initial twelve lead electrocardiogram reveals atrial fibrillation with right bundle branch block and PVC. Initial troponin level of 30ng/L. Initial BNP level of 922.82pg/mL. 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 The patient was on hospice care prior to emergency room arrival. Chest x-ray shows cardiomegaly. Past Medical History Past medical history reviewed. No other significant than mentioned above. Past Surgical History Bilateral mastectomy Tonsillectomy Cholecystectomy Appendectomy Family History: Colon cancer G8 MOTHER Diabetes mellitus G8 MOTHER Allergies: Coded Allergies: Diphenhydramine (Verified Allergy, Unknown, 09/21/22) Uncoded Allergies: TAPE (Allergy, Unknown, 09/21/22) Home Meds Active Scripts Hydrocodone-Acetaminophen (Hydrocodone Bitartrate/AC 5-325 mg) 1 Tab Tab, 1 TAB PO QID PRN, #30 TAB Prov:NICOL ROMAN MD 10/02/24 Sulfamethoxazole W/Trimethopri (Bactrim Ds Tablet) 1 Tab Tb, 1 TAB PO BID for 10 Days, #20 TAB Prov:CESAR HAYES RESIDENT 07/15/24 Doxycycline Hyclate (Doxycycline Hyclate) 50 Mg Cap, 100 MG PO BID for 10 Days, #20 CAP Prov:CESAR HAYES RESIDENT 07/15/24 Naloxone HCl (Narcan) 4 Mg/0.1 Ml Spr, 4 MG NA PRN PRN for 1 Day, #1 SPRAY 1 Refill Prov:DEONDRE GLEZ MD 05/17/24 Oxycodone Hcl (OxyCONTIN ER Tablet) 20 Mg Tb, 1 TAB PO BID for 7 Days, #14 TAB Prov:DEONDRE GLEZ MD 05/17/24 Albuterol Sulfate (Albuterol Sulfate Hfa) 108 Mcg/Act Aer, 108 MCG IN BID for 30 Days, #1 AER 0 Refills Prov:[facility] 05/16/24 Umeclidinium [place] (Incruse Ellipta) 62.5 Mcg/Inh Inh, 62.5 MCG IN DAILY for 30 Days, #1 INHALER 0 [facility] 05/16/24 Empagliflozin (Jardiance) 10 Mg Tab, 10 MG PO DAILY for 30 Days, #30 TAB 1 Refill Prov:[facility] 05/16/24 Apixaban Base (ELIQUIS) 5 Mg Tab, 1 TAB PO BID for 30 Days, #60 TAB Prov:[facility] 05/16/24 Lisinopril (Lisinopril) 20 Mg Tab, 1 TAB PO DAILY for 30 Days, #30 TAB 5 Refills Prov:[facility] 05/16/24 Calcium Carbonate (Antacid) (Antacid) 750 Mg Chw, 750 MG PO DAILYPRN PRN for 30 Days, #30 TAB.CHEW Prov:[facility] 05/16/24 Aspirin (Aspir-Low) 81 Mg Tab, 81 MG PO DAILY for 30 Days, #30 MG Prov:[facility] 05/16/24 Ondansetron HCl (Ondansetron) 4 Mg Tab, 4 MG PO PRN PRN for NAUSEA / VOMITING for 30 Days, #30 TAB Prov:[facility] 05/16/24 Atorvastatin Calcium (ATORVASTATIN CALCIUM) 40 Mg Tab, 1 TAB PO DAILY for 30 Days, #30 TAB Prov:[facility] 05/16/24 Amlodipine Besylate (Amlodipine Besylate) 5 Mg Tab, 1 TAB PO DAILY for 30 Days, #30 TAB Prov:[facility] 05/16/24 Metoprolol Succinate (Metoprolol Succinate Er) 25 Mg Tab, 1 TAB PO DAILY for 30 Days, #30 TAB Prov:[facility] 05/16/24 Reported Medications Mometasone Furoate-Formoterol (Dulera) 1 Aer Aer, 2 PUFF INH BID 07/09/24 Allopurinol (Allopurinol) 300 Mg Tab, 1 TAB PO DAILY 07/09/24 Furosemide (Furosemide) 20 Mg Tab, 1 TAB PO BID 07/09/24 Mometasone Furoate-Formoterol (Dulera) 1 Aer Aer, INH UD for 30 Days, #13 02/02/24 Potassium Chloride (Potassium Chloride ER) 10 Meq Tab, 1 TAB PO DAILY for 30 Days, #30 02/02/24 Senna (Sennosides) 8.6 Mg Tab, 8.6 MG PO, TAB 02/02/24 Cholecalciferol (VITAMIN D3) 2,000 Unit Tab, 1 TAB PO DAILY for 30 Days 02/02/24 Current Medications Current Medications Medications (Trade) Dose Ordered Sig/[place]rad Route PRN Reason Start Time Stop Time Status Last Admin Albuterol (Ventolin Medneb) 2.5 mg Q4HPRN PRN NEB SHORTNESS OF BREATH 12/21/24 23:45 12/22/24 11:47 Ipratropium [place] (Atrovent Medneb) 0.5 mg Q4HPRN PRN NEB SHORTNESS OF BREATH 12/21/24 23:45 Carvedilol (Coreg Tablet) 3.125 mg Q12HR PO 12/22/24 10:00 12/22/24 10:15 Furosemide (Lasix Injection) 20 mg DAILY IV 12/22/24 10:00 12/22/24 10:16 Apixaban (Eliquis) 5 mg BID PO 12/22/24 10:00 12/22/24 10:15 Sodium Chloride (Saline Lock Ns) 10 ml Q8HR IV 12/22/24 06:00 12/22/24 05:50 Acetaminophen/ Hydrocodone Bitart ([place] 5/325MG Tab) 1 tab Q4HP PRN PO MODERATE PAIN (4-6 PAIN SCALE) 12/21/24 23:45 Ondansetron HCl (Zofran) 4 mg Q4HP PRN IV NAUSEA / VOMITING 12/21/24 23:45 Docusate Sodium (Colace Capsule) 100 mg BIDPRN PRN PO FOR CONSTIPATION 12/21/24 23:45 Acetaminophen (Tylenol Tablet) 650 mg Q6HP PRN PO PAIN SCALE 1-3 OR TEMP>100.4 12/21/24 23:45 Nitroglycerin (Ntrostat Sublingual) 0.4 mg Q5MINP PRN SL FOR CHEST PAIN 12/21/24 23:45 Morphine Sulfate 2 mg Q30M PRN IV FOR CHEST PAIN 12/21/24 23:45 Ceftriaxone Sodium 50 ml @ 100 mls/hr DAILY@09 IV 12/23/24 09:00 Azithromycin 250 ml @ 125 mls/hr DAILY IV 12/23/24 10:00 Morphine Sulfate (Oramorph Sustained Release Tab) 30 mg Q12HR PO 12/22/24 22:00 UNV Oxycodone HCl 20 mg Q6HPRN PRN PO SEVERE PAIN (7-10 PAIN SCALE) 12/22/24 12:30 Spironolactone (Aldactone) 25 mg DAILY PO 12/23/24 10:00 UNV Lisinopril (Zestril Tablet) 10 mg DAILY PO 12/23/24 10:00 UNV Review of Systems Constitutional: No symptom reported Ears, Nose, & Throat: No symptom reported Eyes: No symptom reported Neurological: No symptoms reported Pulmonary/Respiratory: Shortness of breath Cardiovascular: Bilateral lower extremity edema Gastrointestinal: No symptom reported Genitourinary: No symptom reported Musculoskeletal: No symptom reported Skin: No symptom reported Psychiatric: No symptom reported Endocrine: No symptom reported Hematologic/Lymphatic: No symptom reported Vital Signs Vital Signs Date Time Temp Pulse Resp B/P (MAP) Pulse Ox O2 Delivery O2 Flow Rate FiO2 12/22/24 12:14 105 117/67 12/22/24 11:48 24 95 12/22/24 11:41 Nasal Cannula 5.0 12/22/24 11:41 40 12/22/24 07:35 98.4 98.4 Physical Exam GENERAL: Alert and oriented x 3. No acute distress. EYES: PERRL, EOMI. Anicteric. HENT: Moist mucous membranes. LUNGS: Clear to auscultation bilaterally. CARDIOVASCULAR: Irregular rate and rhythm. ABDOMEN: Soft, nontender and nondistended. EXTREMITIES: +3 pitting edema. NEUROLOGIC: No focal neurological deficits. SKIN: Multiple blisters to bilateral lower extremities. Weeping wounds to bilateral lower extremities. Bilateral lower extremities wrapped. Labs/Diagnostic Data Labs Test 12/22/24 12:33 12/22/24 12:32 12/22/24 09:22 9/5/25 03:34 Range/Units Influenza Type A Antigen Negative Negative Influenza Type B Antigen Negative Negative SARS-CoV-2 Antigen (Rapid) Negative NEGATIVE D-Dimer, Quantitative 0.27 0.0-0.49 mg/L FEU Potassium Level 3.5 3.5-5.1 mmol/L White Blood Count 10.4 4.4-10.8 10^3/uL Red Blood Count 4.28 4.0-5.20 10^6/uL Hemoglobin 14.0 12.2-16.2 g/dL Hematocrit 41.2 36.0-46.0 % Mean Corpuscular Volume 96.3 # 80.0-100.0 fL Mean Corpuscular Hemoglobin 32.8 H 28.0-32.0 pg Mean Corpuscular Hemoglobin Concent 34.0 32.0-36.0 g/dL Red Cell Distribution Width 15.7 H 11.8-14.3 % Platelet Count 149 140-450 10^3/uL Mean Platelet Volume 9.2 6.9-10.8 fL Neutrophils (%) (Auto) 80.4 H 37.0-80.0 % Lymphocytes (%) (Auto) 14.1 10.0-50.0 % Monocytes (%) (Auto) 4.8 0.0-12.0 % Eosinophils (%) (Auto) 0.5 0.0-7.0 % Basophils (%) (Auto) 0.2 0.0-2.0 % Neutrophils # (Auto) 8.3 1.6-8.6 10 ^3/uL Lymphocytes # (Auto) 1.5 0.4-5.4 10 ^3/uL Monocytes # (Auto) 0.5 0-1.3 10 ^3/uL Eosinophils # (Auto) 0.1 0-0.8 10 ^3/uL Basophils # (Auto) 0 0-0.2 10 ^3/uL Nucleated Red Blood Cells 0.0 % Sodium Level 141 136-145 mmol/L Chloride Level 102 98-107 mmol/L Carbon Dioxide Level 27 20-31 mmol/L Anion Gap 12 5-15 Blood Urea Nitrogen 15 9-23 mg/dL Creatinine 0.95 0.550-1.02 mg/dL Glomerular Filtration Rate Calc 61 >90 mL/min BUN/Creatinine Ratio 15.8 10.0-20.0 Serum Glucose 105 74-106 mg/dL Calcium Level 7.5 L 8.7-10.4 mg/dL Total Bilirubin 0.6 0.2-1.0 mg/dL Aspartate Amino Transferase (AST) 70 H 13-40 U/L Alanine Aminotransferase (ALT) 34 7-40 U/L Alkaline Phosphatase 143 H 46-116 U/L Total Protein 6.1 5.7-8.2 g/dL Albumin 2.8 L 3.2-4.8 g/dL Test 12/22/24 00:18 12/21/24 23:10 12/21/24 21:20 Range/Units Troponin I High Sensitivity 34 </=34 ng/L Lactic Acid Level 1.7 0.4-2.0 mmol/L Prothrombin Time 13.5 H 9.3-11.8 sec Prothrombin Time INR 1.31 H 0.9-1.15 Activated Partial Thromboplast Time 30.5 24.5-34.5 SEC Magnesium Level 1.7 1.6-2.6 mg/dL B-Type Natriuretic Peptide 922.82 0-100 pg/mL Assessment Acute on chronic decompensated, HFrEF, NYHA class III (EF 40% per ventriculography on recent angiogram). Mild CAD involving the RCA. Hypertension. Hyperlipidemia. Atrial fibrillation status post two direct current cardioversions, likely persistent (on Eliquis). Moderate to severe tricuspid regurgitation. Moderate to severe mitral regurgitation. Chronic kidney disease. Hypokalemia. ? Bilateral lower extremity cellulitis. Pulmonary hypertension. COPD on home O2. Asthma. History of tobacco use. Morbidly obese, Class 3. Plan/Recommendation I agree with your ongoing assessment and care of plan. Patient has been seen by Jess Paz NP on my behalf, her and I discussed the plan with the patient. We will proceed with obtaining a transthoracic echocardiogram to evaluate cardiac function. Recent coronary angiogram on 09/29/24 reveals an EF of approximately 40% via ventriculography, previous echocardiogram on 09/27/24 revealed an EF of 60%. We will initiate guideline medical therapy for CHF as tolerated. Hold SGLT2i (Jardiance) at this time recent history of UTI. Consider adding Jardiance once urinalysis is done and excludes urinary tract infection. Preload and afterload reduction. Continue with strict intake and output, daily weights, and maintaining fluid restriction. [id number] VASc score: 5 points, HAS-BLED: 3 points. Continue NOAC therapy. Continue beta-keyon for rate control. Avoid antiarrhythmic agents given atrial fibrillation likely persistent at this point. Of note, the patient recently underwent a right and left heart catheterization on 09/29/2024 which revealed normal left ventricular end-diastolic pressure with pulmonary hypertension, decreased left ventricular ejection fraction of 40%, and mild CAD involving the RCA. Patient denies any cardiac symptoms. Continue with close cardiac surveillance and notify cardiology team for any ECG changes. Additional plan as per the hospital course. Plan discussed with: Patient NYHA Physical activity limitations: Class3(Marked) ordinary Date of Service: Dec 22, 2024 Billing Provider: ELIZA URBAN MD Cardiology Common Codes: [id number] INP/OBS CARE (High) Cardiology Consultation Codes: [id number] CONSULT <45MIN ELIZA URBAN MD Dec 22, 2024 13:24
[2024-12-23] VITALS (9 sets, daily range): BP systolic 105–132; BP diastolic 50–83; PULSE 85–109; RESP 16–18; TEMP 97.4–98; O2SAT 92–100
[2024-12-23 08:04] LABS: Hematocrit 40.9 % (36.0-46.0); Hemoglobin 13.3 g/dL (12.2-16.2); Mean Corpuscular Hemoglobin 27.6 pg (28.0-32.0); Mean Corpuscular Volume 84.8 fL (80.0-100.0); Nucleated Red Blood Cells % 0.1 %; Sodium 139 mmol/L (136-145)
[2024-12-23 08:05] LABS: Anion Gap 9 (5-15); Calcium 9.0 mg/dL (8.7-10.4); Carbon Dioxide 34 mmol/L (20-31); Chloride 96 mmol/L (98-107); Potassium 3.5 mmol/L (3.5-5.1)
[2024-12-23 08:10] LABS: BUN/Creatinine Ratio 11.7 (10.0-20.0); Blood Urea Nitrogen 12 mg/dL (9-23); Glucose 85 mg/dL (74-106)
--- NOTE | 2024-12-23 09:23 | DVHPN2 ---
Reviewed: Care Plan, H&P, Labs, Medications, Previous Orders, Radiology Changes from previous H/P or p: No Changes Eyes: No Pain, No Vision change, No Conjunctivae inflammation, No Eyelid inflammation, No Other, No Redness ENT: No Ear pain, No Ear discharge, No Nose pain, No Nose discharge, No Nose congestion, No Mouth pain, No Mouth swelling, No Throat pain, No Throat swelling, No Other Cardiovascular: No Chest Pain, No Palpitations, No Orthopnea, No Paroxysmal Noc. Dyspnea; Edema; No Lt Headedness, No Other Respiratory: No Cough, No Dry; Shortness of breath, SOB with excertion; No Wheezing, No Hemoptysis, No Pleuritic Pain, No Sputum, No Other Gastrointestinal: No Nausea, No Vomiting, No Abdominal Pain, No Diarrhea, No Constipation, No Melena, No Hematochezia, No Other Genitourinary: No Dysuria, No Frequency, No Incontinence, No Hematuria, No Retention; Other (Hutchinson catheter in place) Musculoskeletal: No other, No neck pain, No shoulder pain, No arm pain, No back pain, No hand pain, No leg pain, No foot pain Skin: No Rash, No Lesions, No Jaundice, No Bruising, No Other Objective Vitals Vital Signs Date Time Temp Pulse Resp B/P (MAP) Pulse Ox O2 Delivery O2 Flow Rate FiO2 12/23/24 08:46 97.5 89 18 113/50 (71) 100 97.5 12/23/24 06:01 Nasal Cannula* 6 44 Intake/Output Intake and Output 12/23/24 07:00 Intake Total 1100 ml Output Total 600 ml Balance 500 ml Intake Oral 1050 ml IV Total 50 ml Output Urine Total 600 ml # Voids 1 # Bowel Movements 1 Medications Current Medications Medications Dose Ordered Sig/Leonard Route Start Time Stop Time Status Last Admin Dose Admin Albuterol 2.5 mg Q4HPRN PRN NEB 12/21/24 23:45 12/22/24 11:47 2.5 MG Ipratropium [place] 0.5 mg Q4HPRN PRN NEB 12/21/24 23:45 Carvedilol 3.125 mg Q12HR PO 12/22/24 10:00 12/22/24 22:09 3.125 MG Furosemide 20 mg DAILY IV 12/22/24 10:00 12/22/24 10:16 20 MG Apixaban 5 mg BID PO 12/22/24 10:00 12/22/24 22:10 5 MG Sodium Chloride 10 ml Q8HR IV 12/22/24 06:00 12/23/24 06:00 10 ML Acetaminophen/ Hydrocodone Bitart 1 tab Q4HP PRN PO 12/21/24 23:45 Ondansetron HCl 4 mg Q4HP PRN IV 12/21/24 23:45 Docusate Sodium 100 mg BIDPRN PRN PO 12/21/24 23:45 Acetaminophen 650 mg Q6HP PRN PO 12/21/24 23:45 Nitroglycerin 0.4 mg Q5MINP PRN SL 12/21/24 23:45 Morphine Sulfate 2 mg Q30M PRN IV 12/21/24 23:45 Ceftriaxone Sodium 50 ml @ 100 mls/hr DAILY@09 IV 12/23/24 09:00 Azithromycin 250 ml @ 125 mls/hr DAILY IV 12/23/24 10:00 Morphine Sulfate 30 mg Q12HR PO 12/22/24 22:00 12/22/24 22:10 30 MG Oxycodone HCl 20 mg Q6HPRN PRN PO 12/22/24 12:30 12/23/24 06:31 20 MG Spironolactone 25 mg DAILY PO 12/23/24 10:00 Lisinopril 10 mg DAILY PO 12/23/24 10:00 Laboratory Results Laboratory Tests 12/23/24 06:29 Chemistry Test 12/23/24 06:29 Calcium Level 9.0 mg/dL (8.7-10.4) Coagulation Test 12/22/24 09:22 D-Dimer, Quantitative 0.27 mg/L FEU (0.0-0.49) Microbiology Microbiology Date/Time Source Procedure Growth Status 12/21/24 21:20 Blood Blood Culture - Preliminary NO GROWTH AFTER 24 HOURS OF INCUBATION. Resulted Labs and/or images reviewed: Labs reviewed by me, Image(s) reviewed by me Assessment/Plan Assessment/Plan Acute on chronic hypoxic respiratory failure: Oxygen by nasal cannula Possible community-acquired pneumonia: Rocephin and azithromycin IV Acute on chronic diastolic congestive heart failure with ejection fraction 60 % : Lasix Status post left heart catheterization by Dr. Julio on 09/29/2024 with the findings of mild right coronary artery disease, advised aggressive risk factor management Paroxysmal atrial fibrillation: History of cardioversion; Continue Eliquis Hypertensive heart disease Acute COPD exacerbation Right Hip osteoarthritis History of gout Morbid obesity at the bedside Blood cultures neg Time Spent 65 minutes Advanced care planning time 20 minutes Patient is full code Patient was with [facility] revoked Plan discussed with: Patient My Orders Orders - NICOL ROMAN MD Procedure Category Date Status Time Ceftriaxone 1gm/50ml PHA 12/23/24 In Process (Rocephin) 09:00 Azithromycin 500mg/ PHA 12/23/24 In Process 250ml (Zithromax 50 10:00 Morphine Extended PHA 12/22/24 In Process Release Tab (Oramorph 22:00 Oxycodone Immediate PHA 12/22/24 In Process Rel Tablet 12:30 * Dietary Consult CONS 12/22/24 Transmitted 18:15 Cleanse Wound With DEBRA 12/22/24 In Process Wound Clean 17:02 Apply Z-Guard DEBRA 12/22/24 In Process 17:02 Date of Service: Dec 23, 2024 Billing Provider: NICOL ROMAN MD Common Visit Codes: [id number] CARE 30-74 MIN NICOL ROMAN MD Dec 23, 2024 09:23
[2024-12-23] MEDS: SPIRONOLACTONE 25 MG TAB PO SCH (10:00)
[2024-12-23] MEDS: LISINOPRIL 5 MG TAB PO SCH (10:00)
[2024-12-23] MEDS: AZITHROMYCIN 500MG/ 250ML 250 ML IV SCH (10:46)
--- NOTE | 2024-12-23 23:03 | DVHPN2 ---
Progress Note - Dictate Date Seen: Dec 23, 2024 Medical Necessity Reason Pt with a Central, PICC or Fol: No Subjective Patient was seen and evaluated in follow up. Patient is on 5 LPM NC. The patient is c/o SOB. CO2 34, [employer] 1.03. Prelim blood cultures are negative for growth. Telemetry reviewed. vital signs Vital Sign Date Time Temp Pulse Resp B/P (MAP) Pulse Ox O2 Delivery O2 Flow Rate FiO2 12/23/24 21:52 84 115/83 12/23/24 20:00 16 Nasal Cannula* 5 40 12/23/24 18:36 95 12/23/24 16:19 97.6 97.6 Total Intake and Output 12/22/24 12/22/24 12/23/24 15:00 23:00 07:00 Intake Total 50 ml 750 ml 300 ml Output Total 600 ml Balance 50 ml 150 ml 300 ml medications Current Medications Medications Dose Ordered Sig/Leonard Route Start Time Stop Time Status Last Admin Dose Admin Albuterol 2.5 mg Q4HPRN PRN NEB 12/21/24 23:45 12/22/24 11:47 2.5 MG Ipratropium [place] 0.5 mg Q4HPRN PRN NEB 12/21/24 23:45 Carvedilol 3.125 mg Q12HR PO 12/22/24 10:00 12/23/24 21:52 3.125 MG Furosemide 20 mg DAILY IV 12/22/24 10:00 12/23/24 10:00 20 MG Apixaban 5 mg BID PO 12/22/24 10:00 12/23/24 21:51 5 MG Sodium Chloride 10 ml Q8HR IV 12/22/24 06:00 12/23/24 21:52 10 ML Acetaminophen/ Hydrocodone Bitart 1 tab Q4HP PRN PO 12/21/24 23:45 Ondansetron HCl 4 mg Q4HP PRN IV 12/21/24 23:45 Docusate Sodium 100 mg BIDPRN PRN PO 12/21/24 23:45 Acetaminophen 650 mg Q6HP PRN PO 12/21/24 23:45 Nitroglycerin 0.4 mg Q5MINP PRN SL 12/21/24 23:45 Morphine Sulfate 2 mg Q30M PRN IV 12/21/24 23:45 Ceftriaxone Sodium 50 ml @ 100 mls/hr DAILY@09 IV 12/23/24 09:00 12/23/24 10:03 100 MLS/HR Azithromycin 250 ml @ 125 mls/hr DAILY IV 12/23/24 10:00 12/23/24 10:46 125 MLS/HR Morphine Sulfate 30 mg Q12HR PO 12/22/24 22:00 12/23/24 21:51 30 MG Oxycodone HCl 20 mg Q6HPRN PRN PO 12/22/24 12:30 12/23/24 18:36 20 MG Spironolactone 25 mg DAILY PO 12/23/24 10:00 12/23/24 10:00 25 MG Lisinopril 10 mg DAILY PO 12/23/24 10:00 objective GENERAL: Alert and oriented x 3. No acute distress. EYES: PERRL, EOMI. Anicteric. HENT: Moist mucous membranes. LUNGS: Clear to auscultation bilaterally. CARDIOVASCULAR: Irregular rate and rhythm. ABDOMEN: Soft, nontender and nondistended. EXTREMITIES: +3 pitting edema. NEUROLOGIC: No focal neurological deficits. SKIN: Multiple blisters to bilateral lower extremities. Weeping wounds to bilateral lower extremities. Bilateral lower extremities wrapped. laboratory and microbiology Laboratory Tests 12/23/24 06:29 Test 12/23/24 06:29 Range/Units Serum Glucose 85 74-106 mg/dL Problem List Acute on chronic decompensated, HFrEF, NYHA class III (EF 40% per ventriculography on recent angiogram). Mild CAD involving the RCA. Hypertension. Hyperlipidemia. Atrial fibrillation status post two direct current cardioversions, likely persistent (on Eliquis). Moderate to severe tricuspid regurgitation. Moderate to severe mitral regurgitation. Chronic kidney disease. Hypokalemia. ? Bilateral lower extremity cellulitis. Pulmonary hypertension. COPD on home O2. Asthma. History of tobacco use. Morbidly obese, Class 3. Assessment/Plan Continued all current supportive medical care. Echocardiogram. Morphine and Oxycodone for pain management. Eliquis. IV antibiotics as ordered. Coreg, Lisinopril. Diuretics with Lasix. Additional plan as per the hospital course. Dietary Evaluation Review Comments: 1) Initiate MVI @ 1 tb qd 2) Encourage optimal PO intake 3) Follow-up with cardiology, pulmonology, and oncology 4) Continue to monitor I&O, labs, and skin integrity Expected Outcomes/Goals: 1) appetite and labs to improve 2) wound to improve 3) f/u in 3-5 days Plan discussed with: Patient ELIZA URBAN MD Dec 23, 2024 22:48
[2024-12-24] VITALS (10 sets, daily range): BP systolic 104–126; BP diastolic 59–84; PULSE 61–117; RESP 16–22; TEMP 97.5–97.9; O2SAT 93–99
[2024-12-24 05:06] LABS: Urine Budding Yeast MODERATE /hpf (None Seen); Urine Protein, UAD 1+ (Negative)
--- NOTE | 2024-12-24 10:52 | DVHPN2 ---
Reviewed: Care Plan, H&P, Labs, Medications, Previous Orders, Radiology Changes from previous H/P or p: No Changes Eyes: No Pain, No Vision change, No Conjunctivae inflammation, No Eyelid inflammation, No Other, No Redness ENT: No Ear pain, No Ear discharge, No Nose pain, No Nose discharge, No Nose congestion, No Mouth pain, No Mouth swelling, No Throat pain, No Throat swelling, No Other Cardiovascular: No Chest Pain, No Palpitations, No Orthopnea, No Paroxysmal Noc. Dyspnea; Edema; No Lt Headedness, No Other Respiratory: No Cough, No Dry; Shortness of breath, SOB with excertion; No Wheezing, No Hemoptysis, No Pleuritic Pain, No Sputum, No Other Gastrointestinal: No Nausea, No Vomiting, No Abdominal Pain, No Diarrhea, No Constipation, No Melena, No Hematochezia, No Other Genitourinary: No Dysuria, No Frequency, No Incontinence, No Hematuria, No Retention; Other (Hutchinson catheter in place) Musculoskeletal: No other, No neck pain, No shoulder pain, No arm pain, No back pain, No hand pain, No leg pain, No foot pain Skin: No Rash, No Lesions, No Jaundice, No Bruising, No Other Objective Vitals Vital Signs Date Time Temp Pulse Resp B/P (MAP) Pulse Ox O2 Delivery O2 Flow Rate FiO2 12/24/24 10:32 117 126/84 12/24/24 09:00 97.5 22 93 97.5 12/24/24 08:00 Nasal Cannula* 5 40 Intake/Output Intake and Output 12/24/24 07:00 Intake Total 1600 ml Output Total 800 ml Balance 800 ml Intake Oral 1300 ml IV Total 300 ml Output Urine Total 800 ml # Bowel Movements 1 Medications Current Medications Medications Dose Ordered Sig/Leonard Route Start Time Stop Time Status Last Admin Dose Admin Albuterol 2.5 mg Q4HPRN PRN NEB 12/21/24 23:45 12/22/24 11:47 2.5 MG Ipratropium [place] 0.5 mg Q4HPRN PRN NEB 12/21/24 23:45 Carvedilol 3.125 mg Q12HR PO 12/22/24 10:00 12/24/24 10:32 3.125 MG Furosemide 20 mg DAILY IV 12/22/24 10:00 12/24/24 10:31 20 MG Apixaban 5 mg BID PO 12/22/24 10:00 12/24/24 10:33 5 MG Sodium Chloride 10 ml Q8HR IV 12/22/24 06:00 12/24/24 05:33 10 ML Acetaminophen/ Hydrocodone Bitart 1 tab Q4HP PRN PO 12/21/24 23:45 Ondansetron HCl 4 mg Q4HP PRN IV 12/21/24 23:45 Docusate Sodium 100 mg BIDPRN PRN PO 12/21/24 23:45 Acetaminophen 650 mg Q6HP PRN PO 12/21/24 23:45 Nitroglycerin 0.4 mg Q5MINP PRN SL 12/21/24 23:45 Morphine Sulfate 2 mg Q30M PRN IV 12/21/24 23:45 Ceftriaxone Sodium 50 ml @ 100 mls/hr DAILY@09 IV 12/23/24 09:00 12/24/24 10:30 100 MLS/HR Azithromycin 250 ml @ 125 mls/hr DAILY IV 12/23/24 10:00 12/23/24 10:46 125 MLS/HR Morphine Sulfate 30 mg Q12HR PO 12/22/24 22:00 12/24/24 10:32 30 MG Oxycodone HCl 20 mg Q6HPRN PRN PO 12/22/24 12:30 12/24/24 06:56 20 MG Spironolactone 25 mg DAILY PO 12/23/24 10:00 12/24/24 10:33 25 MG Lisinopril 10 mg DAILY PO 12/23/24 10:00 Laboratory Results Laboratory Tests 12/23/24 06:29 Urinalysis Test 12/24/24 04:30 Urine Color Yellow (Yellow) Urine Clarity Clear (Clear) Urine pH 5.5 (5.0-9.0) Urine Specific [place] 1.017 (1.001-1.035) Urine Protein 1+ (Negative) H Urine Ketones Negative (Negative) Urine Blood 1+ /uL (Negative) H Urine Nitrite Negative (Negative) Urine Bilirubin Negative (Negative) Urine Urobilinogen Normal mg/dL (Negative) Urine Leukocyte Esterase 2+ /uL (Negative) Urine RBC 21 /hpf (0 - 4) Urine Microscopic WBC 50 /HPF (0-5) H Urine Squamous Epithelial Cells None seen /hpf (<5) Urine Bacteria None seen /hpf (None Seen) Urine Hyaline Casts Few /lpf (0 - 2) Urine Mucus Few (None Seen) Urine Yeast (Budding) Moderate /hpf (None Seen) Urine Glucose Normal mg/dL (Normal) Microbiology Microbiology Date/Time Source Procedure Growth Status 12/21/24 21:20 Blood Blood Culture - Preliminary NO GROWTH AFTER 48 HOURS OF INCUBATION. Resulted Labs and/or images reviewed: Labs reviewed by me, Image(s) reviewed by me Assessment/Plan Assessment/Plan Acute on chronic hypoxic respiratory failure: Oxygen by nasal cannula Possible community-acquired pneumonia: Rocephin and azithromycin IV Acute on chronic diastolic congestive heart failure with ejection fraction 60 % : Lasix Aldactone Coreg, cardiology consult by Dr. Vitale appreciated Status post left heart catheterization by Dr. Julio on 09/29/2024 with the findings of mild right coronary artery disease, advised aggressive risk factor management Paroxysmal atrial fibrillation: History of cardioversion; Continue Eliquis Hypertensive heart disease Acute COPD exacerbation Right Hip osteoarthritis History of gout Morbid obesity at the bedside Blood cultures neg Time Spent 65 minutes Advanced care planning time 20 minutes Patient is full code Patient was with [facility] revoked Patient does not want to be discharged today Plan discussed with: Patient My Orders Orders - NICOL ROMAN MD Procedure Category Date Status Time Refer To Hospice DEBRA 12/24/24 In Process 10:43 * [employer] CONS 12/24/24 Transmitted Consult Date of Service: Dec 24, 2024 Billing Provider: NICOL ROMAN MD Common Visit Codes: [id number] INP/OBS CARE(HIGH) NICOL ROMAN MD Dec 24, 2024 10:52
--- NOTE | 2024-12-24 18:11 | DVHSR ---
APPROVED REPORT EXAM: LIMITED Two-dimensional and M-mode echocardiogram with Doppler and color Doppler. Blood Pressure: 132/74 mmHg INDICATION Re-evaluate cardiac function RISK FACTORS Obesity: Height: 5'0", Weight: 197 DIMENSIONS LVDd4.7 (3.8-5.7cm)LA (2D)3.5 (1.9-4.0cm)Aortic Root (2.0-3.7cm) LVDs3.3 (2.5-4.0cm)LA (MM) (1.9-4.0cm)Aortic Cusp Exc (1.5-2.0cm) EF (%) 40.0 (55-70%)Rt. Atrium8.9 (1.9-4.0cm)Asc. Aorta cm IVSd1.2 (0.7-1.1cm)RV (D)6.1 (1.8-2.4cm) PWd0.9 (0.7-1.1cm) Mitral Valve MitralMitral Stenosis E/A ratio0.02D MVAcm2 Tricuspid Valve TR Velocity3.45m/s [id number] Other Information Quality : Technically LimitedRhythm : Technically limited study due to body habitus and patient sitting up, limited repeat. Conclusion LV EF IS 50% AND IS LOW NORMAL REMAKABLY DILATED RV AND IS SIGNIFICANTLY HYPOKINETIC RA IS ALSO MAJORLY DILATED CRITICAL PULMONARY HYPERTENSION RVSP IS 63 MM OF HG AND IS VERY HIGH DYSKINESIS OF IVS FINDINGS CONSISTENT WITH SEVERE RIGHT FAILURE NORMAL VALVES NO EFFUSION
--- NOTE | 2024-12-24 22:58 | DVHPN2 ---
Progress Note - Dictate Date Seen: Dec 24, 2024 Medical Necessity Reason Pt with a Central, PICC or Fol: No Subjective Patient was seen and evaluated in follow up. Patient reports her SOB has improved. Patient is planned for discharge tomorrow with [facility] as no file clerk will be available at the patient's home until tomorrow. Telemetry reviewed. vital signs Vital Sign Date Time Temp Pulse Resp B/P (MAP) Pulse Ox O2 Delivery O2 Flow Rate FiO2 12/24/24 13:00 97.6 61 18 104/75 (85) 98 97.6 12/24/24 08:56 Room Air 12/24/24 08:56 0 21 Total Intake and Output 12/23/24 12/23/24 12/24/24 15:00 23:00 07:00 Intake Total 500 ml 400 ml 700 ml Output Total 600 ml 200 ml Balance 500 ml -200 ml 500 ml medications Current Medications Medications Dose Ordered Sig/Leonard Route Start Time Stop Time Status Last Admin Dose Admin Albuterol 2.5 mg Q4HPRN PRN NEB 12/21/24 23:45 12/22/24 11:47 2.5 MG Ipratropium [place] 0.5 mg Q4HPRN PRN NEB 12/21/24 23:45 Carvedilol 3.125 mg Q12HR PO 12/22/24 10:00 12/24/24 10:32 3.125 MG Furosemide 20 mg DAILY IV 12/22/24 10:00 12/24/24 10:31 20 MG Apixaban 5 mg BID PO 12/22/24 10:00 12/24/24 10:33 5 MG Sodium Chloride 10 ml Q8HR IV 12/22/24 06:00 12/24/24 05:33 10 ML Acetaminophen/ Hydrocodone Bitart 1 tab Q4HP PRN PO 12/21/24 23:45 Ondansetron HCl 4 mg Q4HP PRN IV 12/21/24 23:45 Docusate Sodium 100 mg BIDPRN PRN PO 12/21/24 23:45 Acetaminophen 650 mg Q6HP PRN PO 12/21/24 23:45 Nitroglycerin 0.4 mg Q5MINP PRN SL 12/21/24 23:45 Morphine Sulfate 2 mg Q30M PRN IV 12/21/24 23:45 Ceftriaxone Sodium 50 ml @ 100 mls/hr DAILY@09 IV 12/23/24 09:00 12/24/24 10:30 100 MLS/HR Azithromycin 250 ml @ 125 mls/hr DAILY IV 12/23/24 10:00 12/24/24 12:32 125 MLS/HR Morphine Sulfate 30 mg Q12HR PO 12/22/24 22:00 12/24/24 10:32 30 MG Oxycodone HCl 20 mg Q6HPRN PRN PO 12/22/24 12:30 12/24/24 13:41 20 MG Spironolactone 25 mg DAILY PO 12/23/24 10:00 12/24/24 10:33 25 MG objective GENERAL: Alert and oriented x 3. No acute distress. EYES: PERRL, EOMI. Anicteric. HENT: Moist mucous membranes. LUNGS: Clear to auscultation bilaterally. CARDIOVASCULAR: Irregular rate and rhythm. ABDOMEN: Soft, nontender and nondistended. EXTREMITIES: +3 pitting edema. NEUROLOGIC: No focal neurological deficits. SKIN: Multiple blisters to bilateral lower extremities. Weeping wounds to bilateral lower extremities. Bilateral lower extremities wrapped. laboratory and microbiology Laboratory Tests 12/23/24 06:29 Test 12/23/24 06:29 Range/Units Serum Glucose 85 74-106 mg/dL Problem List Acute on chronic decompensated, HFrEF, NYHA class III (EF 40% per ventriculography on recent angiogram). Mild CAD involving the RCA. Hypertension. Hyperlipidemia. Atrial fibrillation status post two direct current cardioversions, likely persistent (on Eliquis). Moderate to severe tricuspid regurgitation. Moderate to severe mitral regurgitation. Chronic kidney disease. Hypokalemia. ? Bilateral lower extremity cellulitis. Pulmonary hypertension. COPD on home O2. Asthma. History of tobacco use. Morbidly obese, Class 3. Assessment/Plan Continued all current supportive medical care. Echocardiogram. Aldactone. Morphine and Oxycodone for pain management. Eliquis. IV antibiotics as ordered. Coreg, Lisinopril. Diuretics with Lasix. Additional plan as per the hospital course. Dietary Evaluation Review Comments: 1) Initiate MVI @ 1 tb qd 2) Encourage optimal PO intake 3) Follow-up with cardiology, pulmonology, and oncology 4) Continue to monitor I&O, labs, and skin integrity Expected Outcomes/Goals: 1) appetite and labs to improve 2) wound to improve 3) f/u in 3-5 days Plan discussed with: Patient ELIZA URBAN MD Dec 24, 2024 14:02
[2024-12-25] VITALS (8 sets, daily range): BP systolic 104–128; BP diastolic 65–80; PULSE 61–93; RESP 16–20; TEMP 95.4–97.6; O2SAT 93–100
[2024-12-25] MEDS ORDERED: AZIT500T66 PO (10:50)
[2024-12-25] MEDS ORDERED: SPIR25TA PO (10:50)
[2024-12-25] MEDS ORDERED: ALBUAER3 IN (10:50)
--- NOTE | 2024-12-25 10:55 | DVHDS2 ---
Discharge Summary Date of Admission Dec 21, 2024 at 23:32 Date of Discharge: Dec 25, 2024 Admitting Diagnosis Shortness of breath Wounds: None Labs/Diagnostic Data: Laboratory Results Test 12/24/24 04:30 12/23/24 06:29 12/22/24 12:33 12/22/24 12:32 Urine Color Yellow (Yellow) Urine Clarity Clear (Clear) Urine pH 5.5 (5.0-9.0) Urine Specific [place] 1.017 (1.001-1.035) Urine Protein 1+ (Negative) Urine Ketones Negative (Negative) Urine Blood 1+ /uL (Negative) Urine Nitrite Negative (Negative) Urine Bilirubin Negative (Negative) Urine Urobilinogen Normal mg/dL (Negative) Urine Leukocyte Esterase 2+ /uL (Negative) Urine RBC 21 /hpf (0 - 4) Urine Microscopic WBC 50 /HPF (0-5) Urine Squamous Epithelial Cells None seen /hpf (<5) Urine Bacteria None seen /hpf (None Seen) Urine Hyaline Casts Few /lpf (0 - 2) Urine Mucus Few (None Seen) Urine Yeast (Budding) Moderate /hpf (None Seen) Urine Glucose Normal mg/dL (Normal) White Blood Count 8.7 10^3/uL (4.4-10.8) Red Blood Count 4.82 10^6/uL (4.0-5.20) Hemoglobin 13.3 g/dL (12.2-16.2) Hematocrit 40.9 % (36.0-46.0) Mean Corpuscular Volume 84.8 fL (80.0-100.0) Mean Corpuscular Hemoglobin 27.6 pg (28.0-32.0) Mean Corpuscular Hemoglobin Concent 32.6 g/dL (32.0-36.0) Red Cell Distribution Width 19.3 % (11.8-14.3) Platelet Count 275 10^3/uL (140-450) Mean Platelet Volume 8.4 fL (6.9-10.8) Neutrophils (%) (Auto) 66.3 % (37.0-80.0) Lymphocytes (%) (Auto) 16.0 % (10.0-50.0) Monocytes (%) (Auto) 7.5 % (0.0-12.0) Eosinophils (%) (Auto) 9.3 % (0.0-7.0) Basophils (%) (Auto) 0.9 % (0.0-2.0) Neutrophils # (Auto) 5.8 10 ^3/uL (1.6-8.6) Lymphocytes # (Auto) 1.4 10 ^3/uL (0.4-5.4) Monocytes # (Auto) 0.7 10 ^3/uL (0-1.3) Eosinophils # (Auto) 0.8 10 ^3/uL (0-0.8) Basophils # (Auto) 0.1 10 ^3/uL (0-0.2) Nucleated Red Blood Cells 0.1 % Sodium Level 139 mmol/L (136-145) Potassium Level 3.5 mmol/L (3.5-5.1) Chloride Level 96 mmol/L (98-107) Carbon Dioxide Level 34 mmol/L (20-31) Anion Gap 9 (5-15) Blood Urea Nitrogen 12 mg/dL (9-23) Creatinine 1.03 mg/dL (0.550-1.02) Glomerular Filtration Rate Calc 56 mL/min (>90) BUN/Creatinine Ratio 11.7 (10.0-20.0) Serum Glucose 85 mg/dL (74-106) Calcium Level 9.0 mg/dL (8.7-10.4) Influenza Type A Antigen Negative (Negative) Influenza Type B Antigen Negative (Negative) SARS-CoV-2 Antigen (Rapid) Negative (NEGATIVE) Test 12/22/24 09:22 12/22/24 03:34 12/22/24 00:18 12/21/24 23:10 D-Dimer, Quantitative 0.27 mg/L FEU (0.0-0.49) Total Bilirubin 0.6 mg/dL (0.2-1.0) Aspartate Amino Transferase (AST) 70 U/L (13-40) Alanine Aminotransferase (ALT) 34 U/L (7-40) Alkaline Phosphatase 143 U/L (46-116) Total Protein 6.1 g/dL (5.7-8.2) Albumin 2.8 g/dL (3.2-4.8) Troponin I High Sensitivity 34 ng/L (</=34) Lactic Acid Level 1.7 mmol/L (0.4-2.0) Test 12/21/24 21:20 Prothrombin Time 13.5 sec (9.3-11.8) Prothrombin Time INR 1.31 (0.9-1.15) Activated Partial Thromboplast Time 30.5 SEC (24.5-34.5) Magnesium Level 1.7 mg/dL (1.6-2.6) B-Type Natriuretic Peptide 922.82 pg/mL (0-100) Other Laboratory Tests 12/23/24 06:29 Consults/Reason for consult None Operations or Procedures None Condition at Discharge: Fair Final Diagnosis/Problems List 1. AFib with a RVR with hemodynamically instability status post cardioversion, currently paroxysmal AFib rate controlled on IV amiodarone tablets on Eliquis 2. Hypotension suspect septic shock/cardiogenic shock currently on Levophed 3. Sepsis suspected secondary to right-sided pneumonia/UTI 4. Right-sided pneumonia treated with the antibiotics 5. Leukocytosis 6. Acute kidney injury suspected secondary to vasomotor nephropathy currently improving 7. Hypothyroidism 8. Anxiety disorder 9. Recent history of left knee replacement 12-11-24 [facility] 10. History of blood loss anemia status post 3 units RBC transfusion after knee surgery Discharge Disposition: Hospice - Home Discharge Instruct/Medications Diet: Cardiac 2g Na,low cholest Activity: Light activity Follow Up/Referral: Follow up with the hospice Dr Joel all previous home meds Medications: Azithromycin Albuterol MDI Spironolactone [facility]mitted [facility] Scheduled Albuterol Sulfate (Albuterol Sulfate Hfa), 108 MCG IN BID Albuterol Sulfate (Ventolin Mdi), 90 MCG IN QID Allopurinol (Allopurinol), 1 TAB PO DAILY, (Reported) Amlodipine Besylate (Amlodipine Besylate), 1 TAB PO DAILY Apixaban Base (Eliquis), 1 TAB PO BID Aspirin (Aspir-Low), 81 MG PO DAILY Atorvastatin Calcium (Atorvastatin Calcium), 1 TAB PO DAILY Azithromycin (Azithromycin), 1 TAB PO DAILY Cholecalciferol (Vitamin D3), 1 TAB PO DAILY, (Reported) Doxycycline Hyclate (Doxycycline Hyclate), 100 MG PO BID Empagliflozin (Jardiance), 10 MG PO DAILY Furosemide (Furosemide), 1 TAB PO BID, (Reported) Lisinopril (Lisinopril), 1 TAB PO DAILY Metoprolol Succinate (Metoprolol Succinate Er), 1 TAB PO DAILY Mometasone Furoate-Formoterol (Dulera), INH UD, (Reported) Mometasone Furoate-Formoterol (Dulera), 2 PUFF INH BID, (Reported) Oxycodone Hcl (OxyCONTIN ER Tablet), 1 TAB PO BID Potassium Chloride (Potassium Chloride ER), 1 TAB PO DAILY, (Reported) Spironolactone (Aldactone), 1 TAB PO DAILY Sulfamethoxazole W/Trimethopri (Bactrim Ds Tablet), 1 TAB PO BID Umeclidinium [place] (Incruse Ellipta), 62.5 MCG IN DAILY Scheduled PRN Calcium Carbonate (Antacid) (Antacid), 750 MG PO DAILYPRN PRN Hydrocodone-Acetaminophen (Hydrocodone Bitartrate/AC 5-325 mg), 1 TAB PO QID PRN Naloxone HCl (Narcan), 4 MG NA PRN PRN Ondansetron HCl (Ondansetron), 4 MG PO PRN PRN for NAUSEA / VOMITING Miscellaneous Medications Senna (Sennosides), 8.6 MG PO, (Reported) 39 (Time taken for discharge summary 39 minutes) Discharge Statement: "Patient was advised to return to the ER or call 911 if any headaches, dizziness, shortness of breath, chest pain, abdominal pain, bleeding, fevers, or worsening of medical condition. Patient was counseled about treatment plan, medications, possible side effects, patientverbalized understanding. All questions were answered to the best of my ability. This discharge took greater then 30 minutes in planning, reviewing documentation, counseling the patient, and discussing with other team members." ASSESSMENT ASSESSMENT Assessment 1. AFib with a RVR with hemodynamically instability status post cardioversion, currently paroxysmal AFib rate controlled on IV amiodarone tablets on Eliquis 2. Hypotension suspect septic shock/cardiogenic shock currently on Levophed 3. Sepsis suspected secondary to right-sided pneumonia/UTI 4. Right-sided pneumonia treated with the antibiotics 5. Leukocytosis 6. Acute kidney injury suspected secondary to vasomotor nephropathy currently improving 7. Hypothyroidism 8. Anxiety disorder 9. Recent history of left knee replacement 12-11-24 [facility] 10. History of blood loss anemia status post 3 units RBC transfusion after knee surgery NICOL ROMAN MD Dec 25, 2024 10:55
--- NOTE | 2024-12-25 10:58 | DVHDS2 ---
Discharge Summary Date of Admission Dec 21, 2024 at 23:32 Date of Discharge: Dec 25, 2024 Admitting Diagnosis Shortness of breath Wounds: None Labs/Diagnostic Data: Laboratory Results Test 12/24/24 04:30 12/23/24 06:29 12/22/24 12:33 12/22/24 12:32 Urine Color Yellow (Yellow) Urine Clarity Clear (Clear) Urine pH 5.5 (5.0-9.0) Urine Specific [place] 1.017 (1.001-1.035) Urine Protein 1+ (Negative) Urine Ketones Negative (Negative) Urine Blood 1+ /uL (Negative) Urine Nitrite Negative (Negative) Urine Bilirubin Negative (Negative) Urine Urobilinogen Normal mg/dL (Negative) Urine Leukocyte Esterase 2+ /uL (Negative) Urine RBC 21 /hpf (0 - 4) Urine Microscopic WBC 50 /HPF (0-5) Urine Squamous Epithelial Cells None seen /hpf (<5) Urine Bacteria None seen /hpf (None Seen) Urine Hyaline Casts Few /lpf (0 - 2) Urine Mucus Few (None Seen) Urine Yeast (Budding) Moderate /hpf (None Seen) Urine Glucose Normal mg/dL (Normal) White Blood Count 8.7 10^3/uL (4.4-10.8) Red Blood Count 4.82 10^6/uL (4.0-5.20) Hemoglobin 13.3 g/dL (12.2-16.2) Hematocrit 40.9 % (36.0-46.0) Mean Corpuscular Volume 84.8 fL (80.0-100.0) Mean Corpuscular Hemoglobin 27.6 pg (28.0-32.0) Mean Corpuscular Hemoglobin Concent 32.6 g/dL (32.0-36.0) Red Cell Distribution Width 19.3 % (11.8-14.3) Platelet Count 275 10^3/uL (140-450) Mean Platelet Volume 8.4 fL (6.9-10.8) Neutrophils (%) (Auto) 66.3 % (37.0-80.0) Lymphocytes (%) (Auto) 16.0 % (10.0-50.0) Monocytes (%) (Auto) 7.5 % (0.0-12.0) Eosinophils (%) (Auto) 9.3 % (0.0-7.0) Basophils (%) (Auto) 0.9 % (0.0-2.0) Neutrophils # (Auto) 5.8 10 ^3/uL (1.6-8.6) Lymphocytes # (Auto) 1.4 10 ^3/uL (0.4-5.4) Monocytes # (Auto) 0.7 10 ^3/uL (0-1.3) Eosinophils # (Auto) 0.8 10 ^3/uL (0-0.8) Basophils # (Auto) 0.1 10 ^3/uL (0-0.2) Nucleated Red Blood Cells 0.1 % Sodium Level 139 mmol/L (136-145) Potassium Level 3.5 mmol/L (3.5-5.1) Chloride Level 96 mmol/L (98-107) Carbon Dioxide Level 34 mmol/L (20-31) Anion Gap 9 (5-15) Blood Urea Nitrogen 12 mg/dL (9-23) Creatinine 1.03 mg/dL (0.550-1.02) Glomerular Filtration Rate Calc 56 mL/min (>90) BUN/Creatinine Ratio 11.7 (10.0-20.0) Serum Glucose 85 mg/dL (74-106) Calcium Level 9.0 mg/dL (8.7-10.4) Influenza Type A Antigen Negative (Negative) Influenza Type B Antigen Negative (Negative) SARS-CoV-2 Antigen (Rapid) Negative (NEGATIVE) Test 12/22/24 09:22 12/22/24 03:34 12/22/24 00:18 12/21/24 23:10 D-Dimer, Quantitative 0.27 mg/L FEU (0.0-0.49) Total Bilirubin 0.6 mg/dL (0.2-1.0) Aspartate Amino Transferase (AST) 70 U/L (13-40) Alanine Aminotransferase (ALT) 34 U/L (7-40) Alkaline Phosphatase 143 U/L (46-116) Total Protein 6.1 g/dL (5.7-8.2) Albumin 2.8 g/dL (3.2-4.8) Troponin I High Sensitivity 34 ng/L (</=34) Lactic Acid Level 1.7 mmol/L (0.4-2.0) Test 12/21/24 21:20 Prothrombin Time 13.5 sec (9.3-11.8) Prothrombin Time INR 1.31 (0.9-1.15) Activated Partial Thromboplast Time 30.5 SEC (24.5-34.5) Magnesium Level 1.7 mg/dL (1.6-2.6) B-Type Natriuretic Peptide 922.82 pg/mL (0-100) Other Laboratory Tests 12/23/24 06:29 Brief Hx & Hospital Course: 79-year-old female with a history of hypertension COPD gout osteoarthritis status post left heart catheterization by Dr. Bermudez 09/29/2024 with the findings of mild right coronary artery disease acute on chronic congestive heart failure came in for shortness of breaths found to have community-acquired pneumonia treated with Rocephin and azithromycin seen by ad copy writer Dr. Vitale. The patient at the time of discharge is on room air afebrile stable vital signs discharged home. Prescription for azithromycin spironolactone and Ventolin MDI transmitted to the pharmacy. She is being discharged back to the [facility] for which the patient agrees. Consults/Reason for consult Cardiology Dr. Sunil Vitale Operations or Procedures None Condition at Discharge: Fair Final Diagnosis/Problems List Acute on chronic hypoxic respiratory failure: Oxygen by nasal cannula Possible community-acquired pneumonia: Rocephin and azithromycin IV Acute on chronic diastolic congestive heart failure with ejection fraction 60 % : Lasix Aldactone Coreg, cardiology consult by Dr. Vitale appreciated Status post left heart catheterization by Dr. Julio on 09/29/2024 with the findings of mild right coronary artery disease, advised aggressive risk factor management Paroxysmal atrial fibrillation: History of cardioversion; Continue Eliquis Hypertensive heart disease Acute COPD exacerbation Right Hip osteoarthritis History of gout Morbid obesity at the bedside Blood cultures neg Discharge Disposition: Hospice - Home Discharge Instruct/Medications Diet: Cardiac 2g Na,low cholest Activity: Light activity Follow Up/Referral: Follow up with the hospice Dr Joel all previous home meds Medications: Azithromycin Albuterol MDI Spironolactone [facility]mitted [facility] Scheduled Albuterol Sulfate (Albuterol Sulfate Hfa), 108 MCG IN BID Albuterol Sulfate (Ventolin Mdi), 90 MCG IN QID Allopurinol (Allopurinol), 1 TAB PO DAILY, (Reported) Amlodipine Besylate (Amlodipine Besylate), 1 TAB PO DAILY Apixaban Base (Eliquis), 1 TAB PO BID Aspirin (Aspir-Low), 81 MG PO DAILY Atorvastatin Calcium (Atorvastatin Calcium), 1 TAB PO DAILY Azithromycin (Azithromycin), 1 TAB PO DAILY Cholecalciferol (Vitamin D3), 1 TAB PO DAILY, (Reported) Doxycycline Hyclate (Doxycycline Hyclate), 100 MG PO BID Empagliflozin (Jardiance), 10 MG PO DAILY Furosemide (Furosemide), 1 TAB PO BID, (Reported) Lisinopril (Lisinopril), 1 TAB PO DAILY Metoprolol Succinate (Metoprolol Succinate Er), 1 TAB PO DAILY Mometasone Furoate-Formoterol (Dulera), INH UD, (Reported) Mometasone Furoate-Formoterol (Dulera), 2 PUFF INH BID, (Reported) Oxycodone Hcl (OxyCONTIN ER Tablet), 1 TAB PO BID Potassium Chloride (Potassium Chloride ER), 1 TAB PO DAILY, (Reported) Spironolactone (Aldactone), 1 TAB PO DAILY Sulfamethoxazole W/Trimethopri (Bactrim Ds Tablet), 1 TAB PO BID Umeclidinium [place] (Incruse Ellipta), 62.5 MCG IN DAILY Scheduled PRN Calcium Carbonate (Antacid) (Antacid), 750 MG PO DAILYPRN PRN Hydrocodone-Acetaminophen (Hydrocodone Bitartrate/AC 5-325 mg), 1 TAB PO QID PRN Naloxone HCl (Narcan), 4 MG NA PRN PRN Ondansetron HCl (Ondansetron), 4 MG PO PRN PRN for NAUSEA / VOMITING Miscellaneous Medications Senna (Sennosides), 8.6 MG PO, (Reported) 39 (Time taken for discharge summary 39 minutes) Discharge Statement: "Patient was advised to return to the ER or call 911 if any headaches, dizziness, shortness of breath, chest pain, abdominal pain, bleeding, fevers, or worsening of medical condition. Patient was counseled about treatment plan, medications, possible side effects, patientverbalized understanding. All questions were answered to the best of my ability. This discharge took greater then 30 minutes in planning, reviewing documentation, counseling the patient, and discussing with other team members." ASSESSMENT ASSESSMENT Hospital Course Improved Assessment Acute on chronic hypoxic respiratory failure: Oxygen by nasal cannula Possible community-acquired pneumonia: Rocephin and azithromycin IV Acute on chronic diastolic congestive heart failure with ejection fraction 60 % : Lasix Aldactone Coreg, cardiology consult by Dr. Vitale appreciated Status post left heart catheterization by Dr. Julio on 09/29/2024 with the findings of mild right coronary artery disease, advised aggressive risk factor management Paroxysmal atrial fibrillation: History of cardioversion; Continue Eliquis Hypertensive heart disease Acute COPD exacerbation Right Hip osteoarthritis History of gout Morbid obesity at the bedside Blood cultures neg Date of Service: Dec 25, 2024 Billing Provider: NICOL ROMAN MD Common Visit Codes: 12396-DFX/OBS DISCH DAY >30min NICOL ROMAN MD Dec 25, 2024 10:58
--- NOTE | 2024-12-25 22:58 | DVHPN2 ---
Progress Note - Dictate Date Seen: Dec 25, 2024 Medical Necessity Reason Pt with a Central, PICC or Fol: No Subjective Patient was seen and evaluated in follow up. No overnight events. Patient is on 4 LPM NC. Echocardiogram shows an EF of 50%. Patient is cardiac stable for discharge. Telemetry reviewed. vital signs Vital Sign Date Time Temp Pulse Resp B/P (MAP) Pulse Ox O2 Delivery O2 Flow Rate FiO2 12/25/24 13:00 97.6 68 20 104/65 (78) 99 97.6 12/25/24 08:00 Nasal Cannula* 5 40 Total Intake and Output 12/24/24 12/24/24 12/25/24 15:00 23:00 07:00 Intake Total 700 ml 700 ml Output Total 60 ml 1 ml Balance 640 ml 699 ml objective GENERAL: Alert and oriented x 3. No acute distress. EYES: PERRL, EOMI. Anicteric. HENT: Moist mucous membranes. LUNGS: Clear to auscultation bilaterally. CARDIOVASCULAR: Irregular rate and rhythm. ABDOMEN: Soft, nontender and nondistended. EXTREMITIES: +3 pitting edema. NEUROLOGIC: No focal neurological deficits. SKIN: Multiple blisters to bilateral lower extremities. Weeping wounds to bilateral lower extremities. Bilateral lower extremities wrapped. laboratory and microbiology Laboratory Tests 12/23/24 06:29 Test 12/23/24 06:29 Range/Units Serum Glucose 85 74-106 mg/dL Problem List Acute on chronic decompensated, HFrEF, NYHA class III (EF 40% per ventriculography on recent angiogram). Mild CAD involving the RCA. Hypertension. Hyperlipidemia. Atrial fibrillation status post two direct current cardioversions, likely persistent (on Eliquis). Moderate to severe tricuspid regurgitation. Moderate to severe mitral regurgitation. Chronic kidney disease. Hypokalemia. ? Bilateral lower extremity cellulitis. Pulmonary hypertension. COPD on home O2. Asthma. History of tobacco use. Morbidly obese, Class 3. Pulmonary HTN. Assessment/Plan Continued all current supportive medical care. Morphine and Oxycodone for pain management. Eliquis. IV antibiotics as ordered. Coreg, Lisinopril. Diuretics with Lasix. Additional plan as per the hospital course. Dietary Evaluation Review Comments: 1) Initiate MVI @ 1 tb qd 2) Encourage optimal PO intake 3) Follow-up with cardiology, pulmonology, and oncology 4) Continue to monitor I&O, labs, and skin integrity Expected Outcomes/Goals: 1) appetite and labs to improve 2) wound to improve 3) f/u in 3-5 days Plan discussed with: Patient ELIZA URBAN MD Dec 25, 2024 22:58
== END 2024-12-25 20:05 | disposition hospice, home (50) | DRG 871 ==
LOC: EDBD 20:20 → ER 20:20 → OVERFLOW 23:32 → TELE-CENTR 12-22 14:05
PROVIDERS: ADMIT Family Medicine; ATTEND Family Medicine
DX: A41.50 Gram-negative sepsis, unspecified (principal); I50.33 Acute on chronic diastolic (congestive) heart failure; R57.0 Cardiogenic shock; R65.21 Severe sepsis with septic shock; N17.0 Acute kidney failure with tubular necrosis; J96.21 Acute and chronic respiratory failure with hypoxia; J15.9 Unspecified bacterial pneumonia; J15.69 Pneumonia due to other Gram-negative bacteria; I13.0 Hypertensive heart and chronic kidney disease with heart failure and stage 1 through stage 4 chronic kidney disease, or unspecified chronic kidney disease; J44.1 Chronic obstructive pulmonary disease with (acute) exacerbation; F03.94 Unspecified dementia, unspecified severity, with anxiety; J44.0 Chronic obstructive pulmonary disease with (acute) lower respiratory infection; N39.0 Urinary tract infection, site not specified; I27.20 Pulmonary hypertension, unspecified; E66.01 Morbid (severe) obesity due to excess calories; I34.0 Nonrheumatic mitral (valve) insufficiency; N18.9 Chronic kidney disease, unspecified; E03.9 Hypothyroidism, unspecified; I07.1 Rheumatic tricuspid insufficiency; E87.6 Hypokalemia; E78.5 Hyperlipidemia, unspecified; Z68.38 Body mass index [BMI] 38.0-38.9, adult; I25.10 Atherosclerotic heart disease of native coronary artery without angina pectoris; I45.10 Unspecified right bundle-branch block; J98.4 Other disorders of lung; M16.11 Unilateral primary osteoarthritis, right hip; Z20.822 Contact with and (suspected) exposure to COVID-19; I95.9 Hypotension, unspecified; M10.9 Gout, unspecified; Z99.81 Dependence on supplemental oxygen; I48.0 Paroxysmal atrial fibrillation; Z96.652 Presence of left artificial knee joint; Z91.048 Other nonmedicinal substance allergy status; Z90.710 Acquired absence of both cervix and uterus; Z90.13 Acquired absence of bilateral breasts and nipples; Z87.891 Personal history of nicotine dependence; Z87.440 Personal history of urinary (tract) infections; Z85.3 Personal history of malignant neoplasm of breast; Z83.3 Family history of diabetes mellitus; Z80.0 Family history of malignant neoplasm of digestive organs; Z79.01 Long term (current) use of anticoagulants; Z74.01 Bed confinement status; Z51.5 Encounter for palliative care; Z88.8 Allergy status to other drugs, medicaments and biological substances; Z90.49 Acquired absence of other specified parts of digestive tract
CPT/HCPCS: 36415; 71045; 80048; 80053; 81001; 83605; 83735; 83880; 84132; 84484; 85025; 85379; 85610; 85730; 87040; 87426; 87804; 93005; 93306; 93970; 94640; 96365; 99291; G0378

== ENCOUNTER 2025-03-06 16:41 | Inpatient (IN) | payer OTHER, MEDICARE ==
[~2025-03-06] VITALS: Ht 149.9 cm; Wt 81.1 kg
[~2025-03-06 16:41] MED LIST changes: +ALBUAER3 IN; +AZIT500T66 PO; +SPIR25TA PO
--- NOTE | 2025-03-06 17:12 | ED.PDOC ---
SOB-HPI HPI Comments 80 year old female presents to the ED via EMS with a chief complaint of shortness of breath onset 3 days. Patient states she has been experiencing shortness of breath as well as chest discomfort for the past 3 days, worsened today. She also states she is experiencing nasal congestion. Patient is a poor historian. Denies fever, chills, cough, nausea, vomiting, diarrhea. No other symptoms or modifying factors present at this time. Chief Complaint: Shortness of Breath Time Seen by MD: 17:05 Reviewed notes: Nurses Notes, Medications, Allergies Information Source: Patient, Emergency Med Personnel Mode of Arrival: EMS Severity: Moderate Timing: Days Duration: Since onset Context: At Rest PE Risk Factors: None History of: None Prehospital treatment: None Modifying Factors: Nothing Associated Signs and Symptoms: Chest Pain Past Medical History PAST MEDICAL HISTORY: Denies Surgical History: Denies all surgeries METAL BASE BLOCKER History: No Pertinent METAL BASE BLOCKER History Family History Family History: Reviewed,noncontributory to illness, No family hx of Cancer, No family hx of DM, No family hx of Heart waqas, No family hx of HTN, No family hx ofKidney waqas, No family hx of Liver waqas, No family hx of Lung waqas, No family hx of Stroke Social History Smoker: Non-Smoker Alcohol: Denies ETOH Use Drugs: Denies Drug Use Lives In: Home Constitutional: denies: chills, diaphoresis, fatigue, fever, malaise, sweats, weakness, others EENTM: denies: blurred vision, double vision, ear bleeding, ear discharge, ear drainage, ear pain, ear ringing, eye pain, eye redness, hearing loss, mouth pain, mouth swelling, nasal discharge, nose bleeding, nose congestion, nose pain, photophobia, tearing, throat pain, throat swelling, voice changes, others Respiratory: reports: shortness of breath; denies: cough, hemoptysis, orthopnea, SOB at rest, SOB with excertion, stridor, wheezing, others Cardiovascular: reports: chest pain; denies: dizzy spells, diaphoresis, Dyspnea on exertion, edema, irregular heart beat, left arm pain, lightheadedness, palpitations, PND, syncope, others Gastrointestinal: denies: abdomen distended, abdominal pain, blood streaked bowels, constipated, diarrhea, dysphagia, difficulty swallowing, hematemesis, melena, nausea, poor appetite, poor fluid intake, rectal bleeding, rectal pain, vomiting, others Genitourinary: denies: abnormal vagina bleeding, burning, dyspareunia, dysuria, flank pain, frequency, hematuria, incontinence, pain, , vagina discharge, urgency, others Neurological: denies: dizziness, fainting, headache, left sided numbness, left sided weakness, numbness, paresthesia, pre-existing deficit, right sided numbness, right sided weakness, seizure, speech problems, tingling, tremors, weakness, others Musculoskeletal: denies: back pain, gout, joint pain, joint swelling, muscle pain, muscle stiffness, neck pain, others Integumetry: denies: bruises, change in color, change in hair/nails, dryness, laceration, lesions, lumps, rash, wounds, others Allergic/Immunocompromised: denies: Difficulty Healing, Frequent Infections, Hives, Itching, others Hematologic/Lymphatic: denies: anemia, blood clots, easy bleeding, easy bruising, swollen glands, others Endocrine: denies: excessive hunger, excessive sweating, excessive thirst, excessive urination, flushing, intolerance to cold, intolerance to heat, unexplained weight gain, unexplained weight loss, others Psychiatric: denies: anxiety, bipolar disorder, depression, hopeless, panic disorder, schizophrenia, sleepless, suicidal, others All Other Systems: Reviewed and Negative Physical Exam General Appearance: Moderate Distress, No Apparent Distress, Normal HEENT: Normal ENT Inspection, Pharynx Normal, TMs Normal Neck: Full Range of Motion, Non-Tender, Normal, Normal Inspection Respiratory: Chest Non-Tender, Lungs Clear, No Accessory Muscle Use, No Respiratory Distress, Normal Breath Sounds Cardiovascular: No Gallop, Tachycardia Breast Exam: Deferred Gastrointestinal: No Organomegaly, Non Tender, No Pulsatile Mass, Normal Bowel Sounds, Soft Genitalia: Deferred Pelvic: Deferred Rectal: Deferred Extremities: No calf tenderness, Normal capillary refill, Normal inspection, Normal range of motion, Non-tender, No pedal edema Musculoskeletal : Apperance: Normal Neurologic: Alert, lo[place]man II-XII nml as Tested, No Motor Deficits, Normal Affect, Normal Mood, No Sensory Deficits Cerebellar Function: Normal Reflexes: Normal Skin: Dry, Normal Color, Warm Lymphatic: No Adenopathy Was a procedure done? Was a procedure done?: No Differential Dx Differential Diagnosis: Asthma, Bronchitis, CHF, COPD, Pneumonia X-Ray, Labs, Meds, VS Vital Signs Date Time Temp Pulse Resp B/P (MAP) Pulse Ox O2 Delivery O2 Flow Rate FiO2 03/06/25 18:48 Nasal Cannula* 3 32 03/06/25 18:27 97.0 128 12 121/77 (92) 100 97.0 03/06/25 17:00 133 03/06/25 16:58 97.5 130 18 136/80 95 97.5 Lab Test 03/06/25 18:55 03/06/25 17:45 Range/Units Troponin I High Sensitivity 22 20 </=34 ng/L White Blood Count 7.5 4.4-10.8 10^3/uL Red Blood Count 5.19 4.0-5.20 10^6/uL Hemoglobin 14.2 12.2-16.2 g/dL Hematocrit 43.6 36.0-46.0 % Mean Corpuscular Volume 84.0 80.0-100.0 fL Mean Corpuscular Hemoglobin 27.3 L 28.0-32.0 pg Mean Corpuscular Hemoglobin Concent 32.5 32.0-36.0 g/dL Red Cell Distribution Width 24.2 H 11.8-14.3 % Platelet Count 324 140-450 10^3/uL Mean Platelet Volume 7.4 6.9-10.8 fL Neutrophils (%) (Auto) 79.2 37.0-80.0 % Lymphocytes (%) (Auto) 9.3 L 10.0-50.0 % Monocytes (%) (Auto) 10.5 0.0-12.0 % Eosinophils (%) (Auto) 0.5 0.0-7.0 % Basophils (%) (Auto) 0.5 0.0-2.0 % Neutrophils # (Auto) 5.9 1.6-8.6 10 ^3/uL Lymphocytes # (Auto) 0.7 0.4-5.4 10 ^3/uL Monocytes # (Auto) 0.8 0-1.3 10 ^3/uL Eosinophils # (Auto) 0 0-0.8 10 ^3/uL Basophils # (Auto) 0 0-0.2 10 ^3/uL Nucleated Red Blood Cells 0.2 % Sodium Level 136 136-145 mmol/L Potassium Level 3.8 3.5-5.1 mmol/L Chloride Level 97 L 98-107 mmol/L Carbon Dioxide Level 25 20-31 mmol/L Anion Gap 14 5-15 Blood Urea Nitrogen 17 9-23 mg/dL Creatinine 1.00 0.550-1.02 mg/dL Glomerular Filtration Rate Calc 57 >90 mL/min BUN/Creatinine Ratio 17.0 10.0-20.0 Serum Glucose 67 L 74-106 mg/dL Calcium Level 9.1 8.7-10.4 mg/dL Total Bilirubin 1.2 H 0.2-1.0 mg/dL Aspartate Amino Transferase (AST) 21 13-40 U/L Alanine Aminotransferase (ALT) < 9 7-40 U/L Alkaline Phosphatase 154 H 46-116 U/L B-Type Natriuretic Peptide 1170.45 0-100 pg/mL Total Protein 6.6 5.7-8.2 g/dL Albumin 3.5 3.2-4.8 g/dL X-Ray, Labs, Meds, VS Comment Patient had recurrently in the 110 range Patient's BNP elevated at 1100 Patient be admitted for CHF exacerbation and shortness of breath Patient will be given 20 mg IV Lasix Patient hemodynamically stable Time of 1ST Reevaluation: 17:35 Reevaluation 1ST: Unchanged Patient Education/Counseling: Diagnosis, Treatment, Prognosis, Need For Follow Up Family Education/Counseling: No Family Present SEPSIS Sepsis Screen Date sepsis recognized/suspect: Mar 06, 2025 Time Sepsis recognized/suspect: 1649 Recent Procedure: No On Antibiotic Therapy: No Respiratory Rate >20: No Heart Rate >90: Yes Temp<36 C (96.8 F) or >38.3 C: No SBP <90 or MAP <65 mmHG: No New Acute Mental Status Change: No Is the patient on CPAP, BIPAP,: No Physician Orders Electrocardigram (03/06/25 17:14) Electrocardigram (03/06/25 18:14) Electrocardigram (03/06/25 20:14) Urinalysis (03/06/25 17:17) Chest Xray 1 View (03/06/25 17:17) Troponin-I Hs (03/06/25 20:17) Vital Signs Date Time Temp Pulse Resp B/P (MAP) Pulse Ox O2 Delivery O2 Flow Rate FiO2 03/06/25 18:48 Nasal Cannula* 3 32 03/06/25 18:27 97.0 128 12 121/77 (92) 100 97.0 03/06/25 17:00 133 03/06/25 16:58 97.5 130 18 136/80 95 97.5 Laboratory Tests Test 03/06/25 17:45 White Blood Count 7.5 10^3/uL (4.4-10.8) Departure 1 Departure Time of Disposition: 19:52 Impression: Primary Impression: CHF (congestive heart failure) Qualified Codes: I50.21 - Acute systolic (congestive) heart failure Additional Impression: Shortness of breath Disposition: 01 HOME / SELF CARE / HOMELESS Condition: Fair Critical Care Note Critical Care Time?: No Stability Stability form required: No Heart Score Heart Score: Heart Score Response (Comments) Value History N/A 0 EKG N/A 0 Age N/A 0 Risk Factors N/A 0 Troponin N/A 0 Total 0 I personally scribed for ABAD HERCULES ([email or web address]) on 03/06/25 at 17:12. Electronically submitted by Raine Gu ([email or web address]). ABAD HERCULES Mar 06, 2025 17:12
--- NOTE | 2025-03-06 17:15 | ECG ---
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
[2025-03-06 18:08] LABS: Hematocrit 43.6 % (36.0-46.0); Hemoglobin 14.2 g/dL (12.2-16.2); Mean Corpuscular Hemoglobin 27.3 pg (28.0-32.0); Mean Corpuscular Volume 84.0 fL (80.0-100.0); Nucleated Red Blood Cells % 0.2 %
[2025-03-06 18:21] LABS: Anion Gap 14 (5-15); BUN/Creatinine Ratio 17.0 (10.0-20.0); Blood Urea Nitrogen 17 mg/dL (9-23); Calcium 9.1 mg/dL (8.7-10.4); Carbon Dioxide 25 mmol/L (20-31); Potassium 3.8 mmol/L (3.5-5.1); Sodium 136 mmol/L (136-145); Total Protein 6.6 g/dL (5.7-8.2)
[2025-03-06 18:22] LABS: Albumin 3.5 g/dL (3.2-4.8); Bilirubin, Total 1.2 mg/dL (0.2-1.0)
[2025-03-06 18:43] LABS: Alanine Aminotransferase < 9 U/L (7-40); Alkaline Phosphatase 154 U/L (46-116); Chloride 97 mmol/L (98-107); Glucose 67 mg/dL (74-106)
--- NOTE | 2025-03-06 18:48 | DVH ---
EXAM: XY CHEST XRAY 1 VIEW HISTORY: sob TECHNIQUE: 1 view of the chest COMPARISON: XY CHEST XRAY 1 VIEW on DOS: 12/21/24 FINDINGS/IMPRESSION: LUNGS: No pleural effusion, consolidation, or pneumothorax. MEDIASTINUM: [id number] cardiomegaly BONES: No acute osseous abnormality. OTHER: None.
[2025-03-06] MEDS: NITROGLYCERIN 0.4 MG SL TAB SL PRN (20:25)
[2025-03-06] MEDS: MORPHINE SULFATE INJ 2 MG/ml SYRG IV PRN (20:26)
[2025-03-06 20:58] VITALS: PULSE 83; O2SAT 93
[2025-03-06] MEDS ORDERED: ALBUTEROL SULF 2.5 MG/0.5ML(0.5%) NEB SOLN NEB PRN (23:00)
--- NOTE | 2025-03-06 23:13 | DVHHP2 ---
History of Present Illness Reason for Visit: Shortness for breath History of Present Illness 80-year-old female presents for evaluation of shortness for breath. Patient endorses a three day history of worsening shortness for breath with associated substernal chest pressure. Denies cough or fever. No other acute complaints re ported. Past Medical History CHF, hypertension, asthma, atrial fibrillation Past Surgical History Denies Family History Noncontributory Smoke: No ALCOHOL: none Drugs: None Lives: with Family Review of Systems Review of Systems Review of systems are currently negative otherwise addressed in HPI. Allergies: Coded Allergies: Penicillins (Verified Allergy, Unknown, 03/06/25) Medications Current Medications Medications Dose Ordered Sig/Leonard Route Start Time Stop Time Status Last Admin Dose Admin Nitroglycerin 0.4 mg Q5MINP PRN SL 03/06/25 20:15 03/06/25 20:25 0.4 MG Morphine Sulfate 2 mg Q30M PRN IV 03/06/25 20:15 03/06/25 20:26 2 MG Exam Vital Signs Vital Signs Date Time Temp Pulse Resp B/P (MAP) Pulse Ox O2 Delivery O2 Flow Rate FiO2 03/06/25 22:36 124 12 118/75 (89) 99 03/06/25 20:58 Nasal Cannula* 3 32 03/06/25 20:04 98.0 98.0 Exam Gen: 80-year-old female in mild distress Skin: Warm, dry, normal color and texture, no rash. HEENT: Normocephalic atraumatic, mucous membranes moist and pink. Neck: Cervical and supraclavicular nodes normal without enlargement, trachea is midline, thyroid gland is normal without masses. Pulmonary: Clear to auscultation and percussion bilaterally. Cardiac: Irregular rhythm Abdomen: Soft, nontender, nondistended, bowel sounds present all 4 quadrants, no guarding, no rigidity, no organomegaly. Extremities: No cyanosis, clubbing, no edema Neuro: Cranial nerves II through XII grossly intact, normal affect and speech, no focal motor deficits. Labs/Xrays AGE / SEX: 80 / F ADM STATUS: REG ER SERVICE [id number] ORDERING PHYSICIAN: ABAD HERCULES PROCEDURE(s): CXR1 - CHEST XRAY 1 VIEW REASON: sob ORDER NUMBER(s): [id number], ACCESSION NUMBER(s): [id number] EXAM: XY CHEST XRAY 1 VIEW HISTORY: sob TECHNIQUE: 1 view of the chest COMPARISON: XY CHEST XRAY 1 VIEW on DOS: 12/21/24 FINDINGS/IMPRESSION: LUNGS: No pleural effusion, consolidation, or pneumothorax. MEDIASTINUM: [id number] cardiomegaly BONES: No acute osseous abnormality. OTHER: None. Labs Test 03/06/25 18:55 03/06/25 17:45 Range/Units Troponin I High Sensitivity 22 </=34 ng/L White Blood Count 7.5 4.4-10.8 10^3/uL Red Blood Count 5.19 4.0-5.20 10^6/uL Hemoglobin 14.2 12.2-16.2 g/dL Hematocrit 43.6 36.0-46.0 % Mean Corpuscular Volume 84.0 80.0-100.0 fL Mean Corpuscular Hemoglobin 27.3 L 28.0-32.0 pg Mean Corpuscular Hemoglobin Concent 32.5 32.0-36.0 g/dL Red Cell Distribution Width 24.2 H 11.8-14.3 % Platelet Count 324 140-450 10^3/uL Mean Platelet Volume 7.4 6.9-10.8 fL Neutrophils (%) (Auto) 79.2 37.0-80.0 % Lymphocytes (%) (Auto) 9.3 L 10.0-50.0 % Monocytes (%) (Auto) 10.5 0.0-12.0 % Eosinophils (%) (Auto) 0.5 0.0-7.0 % Basophils (%) (Auto) 0.5 0.0-2.0 % Neutrophils # (Auto) 5.9 1.6-8.6 10 ^3/uL Lymphocytes # (Auto) 0.7 0.4-5.4 10 ^3/uL Monocytes # (Auto) 0.8 0-1.3 10 ^3/uL Eosinophils # (Auto) 0 0-0.8 10 ^3/uL Basophils # (Auto) 0 0-0.2 10 ^3/uL Nucleated Red Blood Cells 0.2 % Sodium Level 136 136-145 mmol/L Potassium Level 3.8 3.5-5.1 mmol/L Chloride Level 97 L 98-107 mmol/L Carbon Dioxide Level 25 20-31 mmol/L Anion Gap 14 5-15 Blood Urea Nitrogen 17 9-23 mg/dL Creatinine 1.00 0.550-1.02 mg/dL Glomerular Filtration Rate Calc 57 >90 mL/min BUN/Creatinine Ratio 17.0 10.0-20.0 Serum Glucose 67 L 74-106 mg/dL Calcium Level 9.1 8.7-10.4 mg/dL Total Bilirubin 1.2 H 0.2-1.0 mg/dL Aspartate Amino Transferase (AST) 21 13-40 U/L Alanine Aminotransferase (ALT) < 9 7-40 U/L Alkaline Phosphatase 154 H 46-116 U/L B-Type Natriuretic Peptide 1170.45 0-100 pg/mL Total Protein 6.6 5.7-8.2 g/dL Albumin 3.5 3.2-4.8 g/dL SEPSIS Sepsis Screen Date sepsis recognized/suspect: Mar 06, 2025 Time Sepsis recognized/suspect: 2147 Recent Procedure: No On Antibiotic Therapy: No Respiratory Rate >20: No Heart Rate >90: No Temp<36 C (96.8 F) or >38.3 C: No SBP <90 or MAP <65 mmHG: No New Acute Mental Status Change: No Is the patient on CPAP, BIPAP,: No Physician Orders Electrocardigram (03/06/25 17:14) Electrocardigram (03/06/25 18:14) Electrocardigram (03/06/25 20:14) Urinalysis (03/06/25 17:17) Chest Xray 1 View (03/06/25 17:17) Admit (03/06/25 20:04) Nitroglycerin Sublingual (Ntrostat Subli (03/06/25 20:15) Morphine Sulfate Injection (03/06/25 20:15) Stat Ekg For Chest Pain (03/06/25 20:04) Notify Of Changes From Base (03/06/25 20:04) Housing Court Judge For 24 Hours (03/06/25 20:04) Emergency Dysrhythmia Protocol (03/06/25 20:04) Rhythm Strips Once Every Shift (03/06/25 20:04) Oxygen By Nasal Cannula (03/06/25 20:04) * Wound Consult (03/06/25 ) Wound Culture W/ Gs (03/06/25 21:26) Vital Signs Date Time Temp Pulse Resp B/P (MAP) Pulse Ox O2 Delivery O2 Flow Rate FiO2 03/06/25 22:36 124 12 118/75 (89) 99 03/06/25 21:25 118/75 03/06/25 20:58 83 93 Nasal Cannula* 3 32 03/06/25 20:55 79 16 133/85 03/06/25 20:26 108 14 104/76 03/06/25 20:25 104/76 03/06/25 20:04 98.0 116 12 109/67 (81) 100 98.0 03/06/25 18:48 Nasal Cannula* 3 32 03/06/25 18:27 97.0 128 12 121/77 (92) 100 97.0 03/06/25 17:00 133 03/06/25 16:58 97.5 130 18 136/80 95 97.5 Laboratory Tests Test 03/06/25 17:45 White Blood Count 7.5 10^3/uL (4.4-10.8) Medications Medications Dose Ordered Sig/Leonard Route Start Time Stop Time Status Last Admin Dose Admin Morphine Sulfate 2 mg Q30M PRN IV 03/06/25 20:15 03/06/25 20:26 2 MG Nitroglycerin 0.4 mg Q5MINP PRN SL 03/06/25 20:15 03/06/25 20:25 0.4 MG Assessment/Plan Assessment/Plan Assessment Acute on chronic respiratory failure AFib CHF Hypertension Plan Admit the patient to telemetry to the hospitalist Echocardiogram pending IV Lasix Resume home medications Continue treatment per orders. Plan discussed with: Patient My Orders Orders - ROLANDO DEJESUS AGACNP Procedure Category Date Status Time Admit ADMIT 03/06/25 Transmitted 20:04 Nitroglycerin PHA 03/06/25 In Process Sublingual (Ntrostat 20:15 Morphine Sulfate PHA 03/06/25 In Process Injection 20:15 Stat Ekg For Chest DEBRA 03/06/25 In Process Pain 20:04 Notify Of Changes DEBRA 03/06/25 In Process From Base 20:[address] Judge For DEBRA 03/06/25 In Process 24 Hours 20:04 Emergency Dysrhythmia DEBRA 03/06/25 In Process Protocol 20:04 Rhythm Strips Once DEBRA 03/06/25 In Process Every Shift 20:04 Oxygen By Nasal RT 03/06/25 Transmitted Cannula 20:04 * Wound Consult CONS 03/06/25 Transmitted Wound Culture W/ Gs ANILA 03/06/25 Logged 21:26 Date of Service: Mar 06, 2025 Billing Provider: ROLANDO DEJESUS Common Visit Codes: [id number] INP/OBS CARE (HIGH) ROLANDO DEJESUS Mar 06, 2025 23:13
[2025-03-06] MEDS ORDERED: ONDANSETRON HCL 4 MG/2 ML VIAL IV PRN (23:15)
[2025-03-06 23:16] VITALS: BP 122/75; PULSE 120; RESP 18; O2SAT 95
[2025-03-06] MEDS: SALINE 0.65 % NASAL SPRAY 45ML BOTTLE EACHNOSTRI SCH (23:20)
[2025-03-06] MEDS: DIGOXIN (250MCG/ML) 2 ML AMPULE IV ONE (23:27)
[2025-03-06] MEDS: FUROSEMIDE 20 MG/2 ML VIAL IV ONE (23:27)
[2025-03-06 23:39] LABS: INR 1.32 (0.9-1.15); Partial Thromboplastin Time 33.9 SEC (24.5-34.5); Prothrombin Time 13.6 sec (9.3-11.8)
[2025-03-07] MEDS: KETOROLAC TROMETH 30 MG/ML 1ML VIAL IV ONE (03:21)
[2025-03-07 05:22] LABS: Potassium 3.5 mmol/L (3.5-5.1); Sodium 136 mmol/L (136-145)
[2025-03-07 05:23] LABS: Anion Gap 14 (5-15); Carbon Dioxide 25 mmol/L (20-31)
[2025-03-07 05:24] LABS: Calcium 9.1 mg/dL (8.7-10.4)
[2025-03-07 05:25] LABS: Chloride 97 mmol/L (98-107)
[2025-03-07 05:28] LABS: BUN/Creatinine Ratio 16.9 (10.0-20.0); Blood Urea Nitrogen 15 mg/dL (9-23)
[2025-03-07 05:29] LABS: Glucose 55 mg/dL (74-106)
[2025-03-07] MEDS: FUROSEMIDE 20 MG/2 ML VIAL IV SCH (06:11)
[2025-03-07 06:52] VITALS: O2SAT 95
[2025-03-07 08:00] VITALS: PULSE 95; RESP 12; O2SAT 100
[2025-03-07] MEDS ORDERED: APIXABAN 5 MG TAB PO SCH (10:00)
--- NOTE | 2025-03-07 10:41 | DVHINCON2 ---
Date Seen: Mar 07, 2025 Referring Physician JETT Love Reason for Consultation CHF, Afib History of Present Illness This is a 80-year-old female patient who presents to the emergency room with chief complaint of worsening shortness of breath and generalized weakness for three days prior to emergency room arrival. She also reports decreased appetite for approximately nine days. At the time of assessment, the patient denies any cardiac symptoms. Cardiology has been consulted for CHF and atrial fibrillation. Initial twelve lead electrocardiogram reveals atrial fibrillation with underlying right bundle branch block. Initial troponin level of 20ng/L. Initial BNP level of 1170.45pg/mL. Significant past medical history includes congestive heart failure, hypertension, hyperlipidemia, atrial fibrillation s/p 2 direct current cardioversions (on Eliquis), COPD on home O2, asthma, chronic kidney disease, breast cancer status post bilateral mastectomy, arthritis, anxiety, and morbid obesity. Per records, the patient underwent a coronary angiogram with left heart catheterization on 09/29/2024 at this facility which revealed mild CAD involving the RCA and medical therapy was warranted at that time. The patient denies following up with a inbound customer service agent in the outpatient setting. The patient was on hospice care prior to emergency room arrival. Past Medical History Past medical history reviewed. No other significant than mentioned above. Past Surgical History Bilateral mastectomy Tonsillectomy Cholecystectomy Appendectomy Family History: Colon cancer G8 MOTHER Diabetes mellitus G8 MOTHER Family History Family history reviewed. Social History Patient has a 145 pack years history (5 PPD X 29 years), quit smoking approximately 20 years ago The patient denies any drug use Patient denies any alcohol use Allergies: Coded Allergies: Diphenhydramine (Verified Allergy, Unknown, 09/21/22) Penicillins (Verified Allergy, Unknown, 03/07/25) Uncoded Allergies: TAPE (Allergy, Unknown, 09/21/22) Home Meds Active Scripts Spironolactone (Aldactone) 25 Mg Tab, 1 TAB PO DAILY, #30 TAB 1 Refill Prov:NICOL ROMAN MD 12/25/24 Albuterol Sulfate (VENTOLIN MDI) 90 Mcg Ih, 90 MCG IN QID, #1 INH Prov:NICOL ROMAN MD 12/25/24 Azithromycin (Azithromycin) 500 Mg Tab, 1 TAB PO DAILY, #10 TAB Prov:NICOL ROMAN MD 12/25/24 Hydrocodone-Acetaminophen (Hydrocodone Bitartrate/AC 5-325 mg) 1 Tab Tab, 1 TAB PO QID PRN, #30 TAB Prov:NICOL ROMAN MD 10/02/24 Sulfamethoxazole W/Trimethopri (Bactrim Ds Tablet) 1 Tab Tb, 1 TAB PO BID for 10 Days, #20 TAB Prov:CESAR HAYES [facility] 07/15/24 Doxycycline Hyclate (Doxycycline Hyclate) 50 Mg Cap, 100 MG PO BID for 10 Days, #20 CAP Prov:CESAR HAYES [facility] 07/15/24 Naloxone HCl (Narcan) 4 Mg/0.1 Ml Spr, 4 MG NA PRN PRN for 1 Day, #1 SPRAY 1 Refill Prov:DEONDRE GLEZ MD 05/17/24 Oxycodone Hcl (OxyCONTIN ER Tablet) 20 Mg Tb, 1 TAB PO BID for 7 Days, #14 TAB Prov:DEONDRE GLEZ MD 05/17/24 Albuterol Sulfate (Albuterol Sulfate Hfa) 108 Mcg/Act Aer, 108 MCG IN BID for 30 Days, #1 AER 0 Refills Prov:CHEN MANCERA [facility] 05/16/24 Umeclidinium Cut Off (Incruse Ellipta) 62.5 Mcg/Inh Inh, 62.5 MCG IN DAILY for 30 Days, #1 INHALER 0 Refills Prov:CHEN MANCERA [facility] 05/16/24 Empagliflozin (Jardiance) 10 Mg Tab, 10 MG PO DAILY for 30 Days, #30 TAB 1 Refill Prov:CHEN MANCERA [facility] 05/16/24 Apixaban Base (ELIQUIS) 5 Mg Tab, 1 TAB PO BID for 30 Days, #60 TAB Prov:CHEN MANCERA [facility] 05/16/24 Lisinopril (Lisinopril) 20 Mg Tab, 1 TAB PO DAILY for 30 Days, #30 TAB 5 Refills Prov:CHEN MANCERA [facility] 05/16/24 Calcium Carbonate (Antacid) (Antacid) 750 Mg Chw, 750 MG PO DAILYPRN PRN for 30 Days, #30 TAB.CHEW Prov:CHEN MANCERA [facility] 05/16/24 Aspirin (Aspir-Low) 81 Mg Tab, 81 MG PO DAILY for 30 Days, #30 MG Prov[facility] 05/16/24 Ondansetron HCl (Ondansetron) 4 Mg Tab, 4 MG PO PRN PRN for NAUSEA / VOMITING for 30 Days, #30 TAB Prov:[facility] 05/16/24 Atorvastatin Calcium (ATORVASTATIN CALCIUM) 40 Mg Tab, 1 TAB PO DAILY for 30 Days, #30 TAB Prov[facility] 05/16/24 Amlodipine Besylate (Amlodipine Besylate) 5 Mg Tab, 1 TAB PO DAILY for 30 Days, #30 TAB Prov[facility] 05/16/24 Metoprolol Succinate (Metoprolol Succinate Er) 25 Mg Tab, 1 TAB PO DAILY for 30 Days, #30 TAB Prov[facility] 05/16/24 Reported Medications Mometasone Furoate-Formoterol (Dulera) 1 Aer Aer, 2 PUFF INH BID 07/09/24 Allopurinol (Allopurinol) 300 Mg Tab, 1 TAB PO DAILY 07/09/24 Furosemide (Furosemide) 20 Mg Tab, 1 TAB PO BID 07/09/24 Mometasone Furoate-Formoterol (Dulera) 1 Aer Aer, INH UD for 30 Days, #13 02/02/24 Potassium Chloride (Potassium Chloride ER) 10 Meq Tab, 1 TAB PO DAILY for 30 Days, #30 02/02/24 Senna (Sennosides) 8.6 Mg Tab, 8.6 MG PO, TAB 02/02/24 Cholecalciferol (VITAMIN D3) 2,000 Unit Tab, 1 TAB PO DAILY for 30 Days 02/02/24 Home Meds Home medications reviewed. Current Medications Current Medications Medications (Trade) Dose Ordered Sig/Leonard Route PRN Reason Start Time Stop Time Status Last Admin Nitroglycerin (Ntrostat Sublingual) 0.4 mg Q5MINP PRN SL FOR CHEST PAIN 03/06/25 20:15 03/06/25 20:25 Morphine Sulfate 2 mg Q30M PRN IV FOR CHEST PAIN 03/06/25 20:15 03/06/25 20:26 Sodium Chloride ([place] Nasal [place]) 1 spr QID EACHNOSTRI 03/06/25 23:00 03/07/25 06:08 Empaglifozin (Jardiance) 10 mg DAILY PO 03/07/25 10:00 Lisinopril (Zestril Tablet) 10 mg DAILY PO 03/07/25 10:00 Carvedilol (Coreg Tablet) 3.125 mg Q12HR PO 03/07/25 10:00 Apixaban (Eliquis) 5 mg BID PO 03/07/25 10:00 Furosemide (Lasix Injection) 20 mg BIDD IV 03/07/25 06:00 03/07/25 06:11 Albuterol (Ventolin Medneb) 2.5 mg Q6HPRN PRN NEB SHORTNESS OF BREATH 03/06/25 23:00 Ondansetron HCl (Zofran) 4 mg Q4HP PRN IV NAUSEA / VOMITING 03/06/25 23:15 UNV Acetaminophen (Tylenol Tablet) 650 mg Q6HP PRN PO PAIN SCALE 1-3 OR TEMP>100.4 03/06/25 23:15 Review of Systems Constitutional: Generalized weakness Ears, Nose, & Throat: No symptom reported Eyes: No symptom reported Neurological: No symptoms reported Pulmonary/Respiratory: Shortness of breath Cardiovascular: No symptom reported Gastrointestinal: No symptom reported Genitourinary: No symptom reported Musculoskeletal: No symptom reported Skin: No symptom reported Psychiatric: No symptom reported Endocrine: No symptom reported Hematologic/Lymphatic: No symptom reported Vital Signs Vital Signs Date Time Temp Pulse Resp B/P (MAP) Pulse Ox O2 Delivery O2 Flow Rate FiO2 03/07/25 08:00 112 03/07/25 08:00 97.5 12 108/66 (80) 100 97.5 03/07/25 08:00 Nasal Cannula* 2 28 Physical Exam General Appearance: Cooperative. Morbidly obese Pulmonary/Respiratory: Clear, bilateral breaths sounds. Cardiovascular/Chest: Irregularly irregular Peripheral Pulses: 2+ Radial (R). 2+ Radial (L). 2+ Pedal (R). 2+ Pedal (L) Abdominal Exam: Normal bowel sounds. Ankle Exam: 3+ pitting edema Lower extremities: 3+ pitting edema Neuro/Mental Status: A/OX4, coherent. Thoughts/Psych: Normal thought pattern. Appropriate mood and affect. Good judgment and insight. Appearance: No acute distress. Skin Exam: Normal inspection. Normal color. Warm and dry. Labs/Diagnostic Data Labs Test 03/07/25 04:32 03/06/25 23:17 03/06/25 18:55 03/06/25 17:45 Range/Units Sodium Level 136 136-145 mmol/L Potassium Level 3.5 3.5-5.1 mmol/L Chloride Level 97 L 98-107 mmol/L Carbon Dioxide Level 25 20-31 mmol/L Anion Gap 14 5-15 Blood Urea Nitrogen 15 9-23 mg/dL Creatinine 0.89 0.550-1.02 mg/dL Glomerular Filtration Rate Calc 66 >90 mL/min BUN/Creatinine Ratio 16.9 10.0-20.0 Serum Glucose 55 L 74-106 mg/dL Calcium Level 9.1 8.7-10.4 mg/dL Prothrombin Time 13.6 H 9.3-11.8 sec Prothrombin Time INR 1.32 H 0.9-1.15 Activated Partial Thromboplast Time 33.9 24.5-34.5 SEC D-Dimer, Quantitative 0.37 0.0-0.49 mg/L FEU Troponin I High Sensitivity 22 </=34 ng/L White Blood Count 7.5 4.4-10.8 10^3/uL Red Blood Count 5.19 4.0-5.20 10^6/uL Hemoglobin 14.2 12.2-16.2 g/dL Hematocrit 43.6 36.0-46.0 % Mean Corpuscular Volume 84.0 80.0-100.0 fL Mean Corpuscular Hemoglobin 27.3 L 28.0-32.0 pg Mean Corpuscular Hemoglobin Concent 32.5 32.0-36.0 g/dL Red Cell Distribution Width 24.2 H 11.8-14.3 % Platelet Count 324 140-450 10^3/uL Mean Platelet Volume 7.4 6.9-10.8 fL Neutrophils (%) (Auto) 79.2 37.0-80.0 % Lymphocytes (%) (Auto) 9.3 L 10.0-50.0 % Monocytes (%) (Auto) 10.5 0.0-12.0 % Eosinophils (%) (Auto) 0.5 0.0-7.0 % Basophils (%) (Auto) 0.5 0.0-2.0 % Neutrophils # (Auto) 5.9 1.6-8.6 10 ^3/uL Lymphocytes # (Auto) 0.7 0.4-5.4 10 ^3/uL Monocytes # (Auto) 0.8 0-1.3 10 ^3/uL Eosinophils # (Auto) 0 0-0.8 10 ^3/uL Basophils # (Auto) 0 0-0.2 10 ^3/uL Nucleated Red Blood Cells 0.2 % Total Bilirubin 1.2 H 0.2-1.0 mg/dL Aspartate Amino Transferase (AST) 21 13-40 U/L Alanine Aminotransferase (ALT) < 9 7-40 U/L Alkaline Phosphatase 154 H 46-116 U/L B-Type Natriuretic Peptide 1170.45 0-100 pg/mL Total Protein 6.6 5.7-8.2 g/dL Albumin 3.5 3.2-4.8 g/dL Assessment Acute on chronic decompensated, HFpEF, NYHA class III Mild CAD involving the RCA Hypertension Hyperlipidemia Atrial fibrillation status post two direct current cardioversions, likely persistent (on Eliquis) Chronic kidney disease Pulmonary hypertension COPD on home O2 Asthma History of tobacco use Morbidly obese, Class 3 Plan/Recommendation We will continue with the following plan/recommendations (Dr. Julio): * Transthoracic echocardiogram to evaluate cardiac function * Previous transthoracic echocardiogram from 12/24/2024 reveals an EF of 50%, RVSP 63 mmHg * Continue guideline directed medical therapy for CHF as tolerated * Strict intake and output, daily weights, maintain fluid restriction * Preload and afterload reduction * Initiate lipid-lowering agent (given documented hx of mild CAD) * [id number] VASc score: 5 points, HAS-BLED: 3 points * Therapeutic Lovenox while inpatient, transition back to DOAC prior to discharge * Continue beta-keyon for rate control * Avoid antiarrhythmic agent given AFib likely permanent * Monitor and replete electrolytes as needed, keep potassium greater than four and magnesium greater than two * Close cardiac surveillance Thank you for allowing us to care for this patient. Please call with any questions or concerns. Critical care time spent: 44 minutes This medical document was created using an electronic medical record system with voice recognition software and computerized dictation system. Although this document has been carefully reviewed, there might still be some phonetic and typographical errors. Occasional wrong-word or ``sound-alike substitutions may have occurred due to the inherent limitations of voice recognition software. These areas are purely typographical due to imperfections of the software programs and do not reflect any compromise in the patient's medical care. Please read the chart carefully and recognize, using context, where these substitutions have occurred. Plan discussed with: Patient NYHA Physical activity limitations: Class3(Marked) ordinary (activity causes symtoms) Date of Service: Mar 07, 2025 Billing Provider: SUNIL OROURKE Cardiology Common Codes: [id number] INP/OBS CARE (High) Cardiology Consultation Codes: [id number] CONSULT <45MIN SUNIL OROURKE Mar 07, 2025 10:41
[2025-03-07 11:03] LABS: Triglycerides 94.0 mg/dL (< 150)
[2025-03-07 11:05] LABS: Cholesterol 101.0 mg/dL (< 200)
[2025-03-07 11:10] LABS: HDL Cholesterol 30.0 mg/dL (40-59); Magnesium 1.6 mg/dL (1.6-2.6)
[2025-03-07] MEDS: CARVEDILOL 3.125 MG TAB PO SCH (11:55)
[2025-03-07] MEDS: EMPAGLIFLOZIN 10 MG TAB PO SCH (11:56)
[2025-03-07] MEDS: HYDROcodone-ACET 5/325MG TAB PO PRN (11:56)
[2025-03-07] MEDS: LISINOPRIL 5 MG TAB PO SCH (11:57)
[2025-03-07] MEDS: ENOXAPARIN SOD 100 MG/1 ML SYRINGE SC SCH (12:40)
--- NOTE | 2025-03-07 13:16 | DVHPN2 ---
Reviewed: Care Plan, H&P, Labs, Medications, Previous Orders, Radiology Changes from previous H/P or p: No Changes Objective Vitals Vital Signs Date Time Temp Pulse Resp B/P (MAP) Pulse Ox O2 Delivery O2 Flow Rate FiO2 03/07/25 12:15 97.4 115 13 106/62 (77) 95 97.4 03/07/25 08:00 Nasal Cannula* 2 28 Intake/Output Intake and Output 03/07/25 07:00 Output Total 700 ml Balance -700 ml Output Urine Total 700 ml Medications Current Medications Medications Dose Ordered Sig/Leonard Route Start Time Stop Time Status Last Admin Dose Admin Nitroglycerin 0.4 mg Q5MINP PRN SL 03/06/25 20:15 03/06/25 20:25 0.4 MG Morphine Sulfate 2 mg Q30M PRN IV 03/06/25 20:15 03/06/25 20:26 2 MG Sodium Chloride 1 spr QID EACHNOSTRI 03/06/25 23:00 03/07/25 12:40 1 SPR Empaglifozin 10 mg DAILY PO 03/07/25 10:00 03/07/25 11:56 10 MG Lisinopril 10 mg DAILY PO 03/07/25 10:00 03/07/25 11:57 10 MG Carvedilol 3.125 mg Q12HR PO 03/07/25 10:00 03/07/25 11:55 3.125 MG Furosemide 20 mg BIDD IV 03/07/25 06:00 03/07/25 06:11 20 MG Albuterol 2.5 mg Q6HPRN PRN NEB 03/06/25 23:00 Ondansetron HCl 4 mg Q4HP PRN IV 03/06/25 23:15 UNV Acetaminophen 650 mg Q6HP PRN PO 03/06/25 23:15 Enoxaparin Sodium 90 mg Q12HR SC 03/07/25 11:42 03/07/25 12:40 90 MG Atorvastatin Calcium 40 mg HS PO 03/07/25 22:00 Acetaminophen/ Hydrocodone Bitart 1 tab Q6HPRN PRN PO 03/07/25 11:45 03/07/25 11:56 1 TAB Laboratory Results Laboratory Tests 03/06/25 17:45 03/07/25 04:32 Chemistry Test 03/06/25 17:45 03/07/25 04:32 Albumin 3.5 g/dL (3.2-4.8) Calcium Level 9.1 mg/dL (8.7-10.4) 9.1 mg/dL (8.7-10.4) Total Protein 6.6 g/dL (5.7-8.2) Magnesium Level 1.6 mg/dL (1.6-2.6) Coagulation Test 03/06/25 23:17 Prothrombin Time 13.6 sec (9.3-11.8) H Prothrombin Time INR 1.32 (0.9-1.15) H Activated Partial Thromboplast Time 33.9 SEC (24.5-34.5) D-Dimer, Quantitative 0.37 mg/L FEU (0.0-0.49) Lipid panel Test 03/07/25 04:32 Cholesterol Level 101 mg/dL (< 200) HDL Cholesterol 30 mg/dL (40-59) L Triglycerides Level 94 mg/dL (< 150) Cardiac Markers Test 03/06/25 17:45 B-Type Natriuretic Peptide 1170.45 pg/mL (0-100) LFT Test 03/06/25 17:45 Alanine Aminotransferase (ALT) < 9 U/L (7-40) Alkaline Phosphatase 154 U/L (46-116) H Aspartate Amino Transferase (AST) 21 U/L (13-40) Total Bilirubin 1.2 mg/dL (0.2-1.0) H HgA1c, TSH Test 03/07/25 04:32 Thyroid Stimulating Hormone (TSH) Pending Labs and/or images reviewed: Labs reviewed by me, Image(s) reviewed by me Assessment/Plan Assessment/Plan Acute on chronic decompensated, HFpEF, NYHA class III cardiology consult by Dr. Julio appreciated Mild CAD involving the RCA Hypertension Hyperlipidemia Atrial fibrillation status post two direct current cardioversions, likely persistent (on Eliquis) Chronic kidney disease Pulmonary hypertension COPD on home O2 Asthma History of tobacco use Morbidly obese, Class 3 Patient is hospice revoked Time Spent 70 minutes Advance Care planning time 20 minutes Prognosis poor Plan discussed with: Patient My Orders Orders - NICOL ROMAN MD Procedure Category Date Status Time Hydrocodone-Acet PHA 03/07/25 In Process 5/325mg Tab ([place] 11:45 Date of Service: Mar 07, 2025 Billing Provider: NICOL ROMAN MD Common Visit Codes: [id number] CARE 30-74 MIN NICOL ROMAN MD Mar 07, 2025 13:16
[2025-03-07] MEDS: MAGNESIUM SULFATE 1GM/100ML 100 ML IV ONE (14:53)
[2025-03-07] MEDS: MORPHINE SULFATE INJ 2 MG/ml SYRG IV PRN (15:00)
--- NOTE | 2025-03-07 18:17 | DVHSR ---
APPROVED REPORT EXAM: Two-dimensional and M-mode echocardiogram with Doppler and color Doppler. Blood Pressure: 102/71 mmHg INDICATION EF RISK FACTORS Height: 4'11", Weight: 200 DIMENSIONS LVDd 4.3 (3.8-5.7cm) LA (2D) (1.9-4.0cm) Aortic Root (2.0-3.7cm) LVDs 3.2 (2.5-4.0cm) LA (MM) (1.9-4.0cm) Aortic Cusp Exc (1.5-2.0cm) EF (%) 52.0 (55-70%) Rt. Atrium 7.4 (1.9-4.0cm) Asc. Aorta cm IVSd 1.0 (0.7-1.1cm) RV (D) 6.0 (1.8-2.4cm) PWd 1.1 (0.7-1.1cm) Mitral Valve Mitral Mitral Stenosis E/A ratio 0.0 2D MVA cm2 Tricuspid Valve TR Velocity 3.22m/s RVSP 57mmHg Other Information Quality : Technically Limited Rhythm : Technically limited study due to patient position. Conclusion Technically good study. Undetermined rhythm probably atrial fibrillation. Left atrial enlargement with noted and significant RV enlargement. Right atrial enlargement of significant degree. Mild dilation of the sinuses of Valsalva. Dilated vena cava. The mitral and tricuspid are structurally normal. The aortic is mildly calcified but with good excursion. Doming of the interventricular septum in systole suggesting a pressure overload. Left ventricular systolic performance is diminished. EF is approximately 40%. Right ventricular function is diminished as well. Severe tricuspid insufficiency. With significant pulmonary hypertension and a right ventricular systolic pressure of 60 mmHg. Small pericardial effusion not hemodynamically significant. No intracardiac masses thrombi or vegetations noted.
[2025-03-07 19:30] VITALS: PULSE 108; RESP 10; O2SAT 93
[2025-03-07 22:24] VITALS: BP 102/77; PULSE 117; RESP 17; TEMP 97.8; O2SAT 92
[2025-03-07] MEDS: ATORVASTATIN 20 MG TAB PO SCH (22:41)
[2025-03-07 23:23] VITALS: O2SAT 94
[2025-03-07 23:35] VITALS: BP 110/62; PULSE 75; RESP 18; TEMP 98.5; O2SAT 94
[2025-03-08] VITALS (9 sets, daily range): BP systolic 96–118; BP diastolic 64–97; PULSE 83–121; RESP 17–19; TEMP 97.1–98; O2SAT 94–99
--- NOTE | 2025-03-08 08:30 | DVHPN2 ---
Reviewed: Care Plan, H&P, Labs, Medications, Previous Orders, Radiology Changes from previous H/P or p: No Changes Objective Vitals Vital Signs Date Time Temp Pulse Resp B/P (MAP) Pulse Ox O2 Delivery O2 Flow Rate FiO2 03/08/25 06:25 118/63 03/08/25 05:00 97.3 93 17 96 97.3 03/07/25 23:35 Nasal Cannula* 3 32 Intake/Output Intake and Output 03/08/25 07:00 Intake Total 275 ml Output Total 1100 ml Balance -825 ml Intake Oral 175 ml IV Total 100 ml Output Urine Total 1100 ml # Bowel Movements 1 Medications Current Medications Medications Dose Ordered Sig/Leonard Route Start Time Stop Time Status Last Admin Dose Admin Nitroglycerin 0.4 mg Q5MINP PRN SL 03/06/25 20:15 03/06/25 20:25 0.4 MG Morphine Sulfate 2 mg Q30M PRN IV 03/06/25 20:15 03/06/25 20:26 2 MG Sodium Chloride 1 spr QID EACHNOSTRI 03/06/25 23:00 03/08/25 06:22 1 SPR Empaglifozin 10 mg DAILY PO 03/07/25 10:00 03/07/25 11:56 10 MG Lisinopril 10 mg DAILY PO 03/07/25 10:00 03/07/25 11:57 10 MG Carvedilol 3.125 mg Q12HR PO 03/07/25 10:00 03/07/25 22:42 3.125 MG Furosemide 20 mg BIDD IV 03/07/25 06:00 03/08/25 06:25 20 MG Albuterol 2.5 mg Q6HPRN PRN NEB 03/06/25 23:00 Ondansetron HCl 4 mg Q4HP PRN IV 03/06/25 23:15 Hold Acetaminophen 650 mg Q6HP PRN PO 03/06/25 23:15 Enoxaparin Sodium 90 mg Q12HR SC 03/07/25 11:42 03/07/25 22:43 90 MG Atorvastatin Calcium 40 mg HS PO 03/07/25 22:00 03/07/25 22:41 40 MG Acetaminophen/ Hydrocodone Bitart 1 tab Q6HPRN PRN PO 03/07/25 11:45 03/08/25 00:30 1 TAB Morphine Sulfate 2 mg Q4HPRN PRN IV 03/07/25 14:30 03/07/25 20:59 2 MG Laboratory Results Laboratory Tests 03/06/25 17:45 03/07/25 04:32 HgA1c, TSH Test 03/07/25 13:09 Thyroid Stimulating Hormone (TSH) 1.08 uIU/mL (0.55-4.78) Labs and/or images reviewed: Labs reviewed by me, Image(s) reviewed by me Assessment/Plan Assessment/Plan Acute on chronic decompensated, HFpEF, NYHA class III cardiology consult by Dr. Julio appreciated, echo 40 percent ejection fraction Mild CAD involving the RCA Hypertension Hyperlipidemia Atrial fibrillation status post two direct current cardioversions, likely persistent (on Eliquis) Chronic kidney disease Pulmonary hypertension COPD on home O2 Asthma History of tobacco use Morbidly obese, Class 3 Patient is hospice revoked Patient was on [facility] Time Spent 50 minutes Advance Care planning time 20 minutes Prognosis poor Discharged back to [facility] today Discharge plan discussed with the patient in the presence of TAMICA Coats Plan discussed with: Patient My Orders Orders - NICOL ROMAN MD Procedure Category Date Status Time Hydrocodone-Acet PHA 03/07/25 In Process 5/325mg Tab ([place] 11:45 Morphine Sulfate PHA 03/07/25 In Process Injection 14:30 Date of Service: Mar 08, 2025 Billing Provider: NICOL ROMAN MD Common Visit Codes: [id number] INP/OBS CARE(HIGH) NICOL ROMAN MD Mar 08, 2025 08:30
--- NOTE | 2025-03-08 08:36 | DVHDS2 ---
Discharge Summary Date of Admission Mar 06, 2025 at 20:04 Date of Discharge: Mar 08, 2025 Admitting Diagnosis Shortness of breath Wounds: None Labs/Diagnostic Data: Laboratory Results Test 03/07/25 13:09 03/07/25 04:32 03/06/25 23:17 03/06/25 18:55 Thyroid Stimulating Hormone (TSH) 1.08 uIU/mL (0.55-4.78) Sodium Level 136 mmol/L (136-145) Potassium Level 3.5 mmol/L (3.5-5.1) Chloride Level 97 mmol/L (98-107) Carbon Dioxide Level 25 mmol/L (20-31) Anion Gap 14 (5-15) Blood Urea Nitrogen 15 mg/dL (9-23) Creatinine 0.89 mg/dL (0.550-1.02) Glomerular Filtration Rate Calc 66 mL/min (>90) BUN/Creatinine Ratio 16.9 (10.0-20.0) Serum Glucose 55 mg/dL (74-106) Calcium Level 9.1 mg/dL (8.7-10.4) Magnesium Level 1.6 mg/dL (1.6-2.6) Triglycerides Level 94 mg/dL (< 150) Cholesterol Level 101 mg/dL (< 200) LDL Cholesterol 48 mg/dL (< 100) HDL Cholesterol 30 mg/dL (40-59) Prothrombin Time 13.6 sec (9.3-11.8) Prothrombin Time INR 1.32 (0.9-1.15) Activated Partial Thromboplast Time 33.9 SEC (24.5-34.5) D-Dimer, Quantitative 0.37 mg/L FEU (0.0-0.49) Troponin I High Sensitivity 22 ng/L (</=34) Test 03/06/25 17:45 White Blood Count 7.5 10^3/uL (4.4-10.8) Red Blood Count 5.19 10^6/uL (4.0-5.20) Hemoglobin 14.2 g/dL (12.2-16.2) Hematocrit 43.6 % (36.0-46.0) Mean Corpuscular Volume 84.0 fL (80.0-100.0) Mean Corpuscular Hemoglobin 27.3 pg (28.0-32.0) Mean Corpuscular Hemoglobin Concent 32.5 g/dL (32.0-36.0) Red Cell Distribution Width 24.2 % (11.8-14.3) Platelet Count 324 10^3/uL (140-450) Mean Platelet Volume 7.4 fL (6.9-10.8) Neutrophils (%) (Auto) 79.2 % (37.0-80.0) Lymphocytes (%) (Auto) 9.3 % (10.0-50.0) Monocytes (%) (Auto) 10.5 % (0.0-12.0) Eosinophils (%) (Auto) 0.5 % (0.0-7.0) Basophils (%) (Auto) 0.5 % (0.0-2.0) Neutrophils # (Auto) 5.9 10 ^3/uL (1.6-8.6) Lymphocytes # (Auto) 0.7 10 ^3/uL (0.4-5.4) Monocytes # (Auto) 0.8 10 ^3/uL (0-1.3) Eosinophils # (Auto) 0 10 ^3/uL (0-0.8) Basophils # (Auto) 0 10 ^3/uL (0-0.2) Nucleated Red Blood Cells 0.2 % Total Bilirubin 1.2 mg/dL (0.2-1.0) Aspartate Amino Transferase (AST) 21 U/L (13-40) Alanine Aminotransferase (ALT) < 9 U/L (7-40) Alkaline Phosphatase 154 U/L (46-116) B-Type Natriuretic Peptide 1170.45 pg/mL (0-100) Total Protein 6.6 g/dL (5.7-8.2) Albumin 3.5 g/dL (3.2-4.8) Other Laboratory Tests 03/07/25 04:32 03/06/25 17:45 Brief Hx & Hospital Course: 80-year-old female with multiple medical problems including hypertension hypercholesterolemia atrial fibrillation on Eliquis chronic kidney disease pulmonary hypertension COPD on home oxygen asthma chronic current smoker morbidly obese acute on chronic congestive heart failure on hospice . Hospice revoked admitted for increapatient on ce. sing shortness of breaths found to have acute CHF exacerbation treated with the Lasix and other heart failure medications echo 40 percent ejection fraction cardiology consult by Dr. Julio. The patient was recently discharged from this hospital on hospice. No further cardiac workup she is in 3 L of oxygen with the time of discharge which is her usual requirement discharged home on hospice. Discussed the discharge plan with the patient in the presence of TAMICA Coats Consults/Reason for consult Cardiology Dr. Julio Operations or Procedures Echocardiogram Condition at Discharge: Fair Final Diagnosis/Problems List Acute on chronic decompensated, HFpEF, NYHA class III cardiology consult by Dr. Julio appreciated, echo 40 percent ejection fraction Mild CAD involving the RCA Hypertension Hyperlipidemia Atrial fibrillation status post two direct current cardioversions, likely persistent (on Eliquis) Chronic kidney disease Pulmonary hypertension COPD on home O2 Asthma History of tobacco use Morbidly obese, Class 3 Discharge Disposition: Hospice - Home Discharge Instruct/Medications Diet: Cardiac 2g Na,low cholest Activity: Light activity Follow Up/Referral: Resume all previous home medications Follow up with your hospice Dr and primary Dr Medications: none Scheduled Albuterol Sulfate (Albuterol Sulfate Hfa), 108 MCG IN BID Albuterol Sulfate (Ventolin Mdi), 90 MCG IN QID Allopurinol (Allopurinol), 1 TAB PO DAILY, (Reported) Amlodipine Besylate (Amlodipine Besylate), 1 TAB PO DAILY Apixaban Base (Eliquis), 1 TAB PO BID Aspirin (Aspir-Low), 81 MG PO DAILY Atorvastatin Calcium (Atorvastatin Calcium), 1 TAB PO DAILY Azithromycin (Azithromycin), 1 TAB PO DAILY Cholecalciferol (Vitamin D3), 1 TAB PO DAILY, (Reported) Doxycycline Hyclate (Doxycycline Hyclate), 100 MG PO BID Empagliflozin (Jardiance), 10 MG PO DAILY Furosemide (Furosemide), 1 TAB PO BID, (Reported) Lisinopril (Lisinopril), 1 TAB PO DAILY Metoprolol Succinate (Metoprolol Succinate Er), 1 TAB PO DAILY Mometasone Furoate-Formoterol (Dulera), INH UD, (Reported) Mometasone Furoate-Formoterol (Dulera), 2 PUFF INH BID, (Reported) Oxycodone Hcl (OxyCONTIN ER Tablet), 1 TAB PO BID Potassium Chloride (Potassium Chloride ER), 1 TAB PO DAILY, (Reported) Spironolactone (Aldactone), 1 TAB PO DAILY Sulfamethoxazole W/Trimethopri (Bactrim Ds Tablet), 1 TAB PO BID Umeclidinium [place] (Incruse Ellipta), 62.5 MCG IN DAILY Scheduled PRN Calcium Carbonate (Antacid) (Antacid), 750 MG PO DAILYPRN PRN Hydrocodone-Acetaminophen (Hydrocodone Bitartrate/AC 5-325 mg), 1 TAB PO QID PRN Naloxone HCl (Narcan), 4 MG NA PRN PRN Ondansetron HCl (Ondansetron), 4 MG PO PRN PRN for NAUSEA / VOMITING Miscellaneous Medications Senna (Sennosides), 8.6 MG PO, (Reported) 39 (Time taken for discharge summary 39 minutes) Discharge Statement: "Patient was advised to return to the ER or call 911 if any headaches, dizziness, shortness of breath, chest pain, abdominal pain, bleeding, fevers, or worsening of medical condition. Patient was counseled about treatment plan, medications, possible side effects, patientverbalized understanding. All questions were answered to the best of my ability. This discharge took greater then 30 minutes in planning, reviewing documentation, counseling the patient, and discussing with other team members." ASSESSMENT ASSESSMENT Hospital Course Uneventful Assessment Acute on chronic decompensated, HFpEF, NYHA class III cardiology consult by Dr. Sumanth corrigan, echo 40 percent ejection fraction Mild CAD involving the RCA Hypertension Hyperlipidemia Atrial fibrillation status post two direct current cardioversions, likely persistent (on Eliquis) Chronic kidney disease Pulmonary hypertension COPD on home O2 Asthma History of tobacco use Morbidly obese, Class 3 Date of Service: Mar 08, 2025 Billing Provider: NICOL ROMAN MD Common Visit Codes: [id number] DISCH DAY >30min NICOL ROMAN MD Mar 08, 2025 08:36
[2025-03-09] VITALS (12 sets, daily range): BP systolic 93–118; BP diastolic 58–85; PULSE 80–108; RESP 16–19; TEMP 97.5–98.2; O2SAT 97–99
--- NOTE | 2025-03-09 17:39 | DVHPN2 ---
Consult Progress Note Subjective Other Systems: The patient denies any cardiac symptoms at time of assessment Objective vital signs Vital Sign Date Time Temp Pulse Resp B/P (MAP) Pulse Ox O2 Delivery O2 Flow Rate FiO2 03/09/25 17:00 98.2 93 18 101/77 (85) 98 98.2 03/09/25 07:38 Nasal Cannula* 2 28 Total Intake and Output 03/08/25 03/08/25 03/09/25 15:00 23:00 07:00 Intake Total 250 ml 700 ml Output Total 650 ml 650 ml Balance -400 ml 50 ml medications Current Medications Medications Dose Ordered Sig/Leonard Route Start Time Stop Time Status Last Admin Dose Admin Nitroglycerin 0.4 mg Q5MINP PRN SL 03/06/25 20:15 03/06/25 20:25 0.4 MG Morphine Sulfate 2 mg Q30M PRN IV 03/06/25 20:15 03/06/25 20:26 2 MG Sodium Chloride 1 spr QID EACHNOSTRI 03/06/25 23:00 03/08/25 17:55 1 SPR Empaglifozin 10 mg DAILY PO 03/07/25 10:00 03/09/25 08:50 10 MG Lisinopril 10 mg DAILY PO 03/07/25 10:00 03/07/25 11:57 10 MG Carvedilol 3.125 mg Q12HR PO 03/07/25 10:00 03/09/25 08:49 3.125 MG Furosemide 20 mg BIDD IV 03/07/25 06:00 03/09/25 05:45 20 MG Albuterol 2.5 mg Q6HPRN PRN NEB 03/06/25 23:00 Ondansetron HCl 4 mg Q4HP PRN IV 03/06/25 23:15 Hold Acetaminophen 650 mg Q6HP PRN PO 03/06/25 23:15 Atorvastatin Calcium 40 mg HS PO 03/07/25 22:00 03/08/25 21:26 40 MG Morphine Sulfate 2 mg Q4HPRN PRN IV 03/07/25 14:30 03/08/25 11:31 2 MG Acetaminophen/ Hydrocodone Bitart 1 tab Q4HP PRN PO 03/09/25 19:30 Enoxaparin Sodium 80 mg Q12HR SC 03/09/25 22:00 Examination: GENERAL:Abnormal (Generalized weakness), LUNGS:Normal, CVS:Abnormal (Atrial fibrillation), NEURO:Normal laboratory and microbiology Laboratory Tests 03/07/25 04:32 03/06/25 17:45 Test 03/07/25 04:32 Range/Units Serum Glucose 55 L 74-106 mg/dL Problem List/Assessment/Plan Problem List/Assessment/Plan Acute on chronic decompensated, HFrEF, NYHA class III Mild CAD involving the RCA Severe tricuspid insufficiency Hypertension Hyperlipidemia Atrial fibrillation status post two direct current cardioversions, likely persistent (on Eliquis) Chronic kidney disease Pulmonary hypertension COPD on home O2 Asthma History of tobacco use Morbidly obese, Class 3 Plan/Recommendations (Dr. Julio): * Transthoracic echocardiogram this admission reveals an EF of 40%, RVSP 60mmHg * Continue guideline directed medical therapy for CHF as tolerated * Strict intake and output, daily weights, maintain fluid restriction * Preload and afterload reduction * Continue lipid-lowering agent (given documented hx of mild CAD) * [id number] VASc score: 5 points, HAS-BLED: 3 points * Therapeutic Lovenox while inpatient, transition back to DOAC prior to discharge * Continue beta-keyon for rate control * Avoid antiarrhythmic agent given AFib likely permanent * Monitor and replete electrolytes as needed, keep potassium greater than four and magnesium greater than two * Close cardiac surveillance Thank you for allowing us to care for this patient. Please call with any questions or concerns. This medical document was created using an electronic medical record system with voice recognition software and computerized dictation system. Although this document has been carefully reviewed, there might still be some phonetic and typographical errors. Occasional wrong-word or ``sound-alike substitutions may have occurred due to the inherent limitations of voice recognition software. These areas are purely typographical due to imperfections of the software programs and do not reflect any compromise in the patient's medical care. Please read the chart carefully and recognize, using context, where these substitutions have occurred. Plan discussed with: Patient Dietary Evaluation Review Comments: Nutrition Recommendation: 1) Anatoliy 1 pk BID, MVI w/ minerals 1 tab daily, VitC 500mg BID, Zinc sulfate 220mg BID x 10 days 2) Monitor PO intake, lab values, weight trend, and I/O Expected Outcomes/Goals: Wound to improve FU 3-5 days Date of Service: Mar 09, 2025 Billing Provider: SUNIL OROURKE Visit Codes: [id number] INP/OBS CARE(HIGH) SUNIL OROURKE Mar 09, 2025 17:39
[2025-03-09] MEDS: HYDROcodone-ACET 5/325MG TAB PO PRN (19:37)
[2025-03-09] MEDS: ENOXAPARIN SOD 80 MG/0.8ML SYRINGE SC SCH (21:36)
[2025-03-10] VITALS (10 sets, daily range): BP systolic 92–117; BP diastolic 60–78; PULSE 48–107; RESP 14–20; TEMP 97.4–98.1; O2SAT 95–100
[2025-03-10 06:45] LABS: Sodium 139 mmol/L (136-145)
[2025-03-10 06:46] LABS: Anion Gap 10 (5-15)
[2025-03-10 06:51] LABS: BUN/Creatinine Ratio 15.7 (10.0-20.0); Blood Urea Nitrogen 13 mg/dL (9-23); Glucose 81 mg/dL (74-106)
[2025-03-10 06:53] LABS: Calcium 8.5 mg/dL (8.7-10.4); Carbon Dioxide 34 mmol/L (20-31); Chloride 95 mmol/L (98-107)
[2025-03-10 06:54] LABS: Potassium 2.5 mmol/L (3.5-5.1)
[2025-03-10 07:03] LABS: Hematocrit 40.6 % (36.0-46.0); Hemoglobin 13.2 g/dL (12.2-16.2); Mean Corpuscular Hemoglobin 27.1 pg (28.0-32.0); Mean Corpuscular Volume 83.3 fL (80.0-100.0); Nucleated Red Blood Cells % 0.2 %
[2025-03-10] MEDS: POTASSIUM CHLORIDE 60 MEQ, LIDOCAINE 1% (LOCAL ANESTH.) 6 ML in SODIUM CHL 0.9% 500 ML IV ONE (07:15)
[2025-03-10] MEDS: SPIRONOLACTONE 25 MG TAB PO SCH (11:54)
--- NOTE | 2025-03-10 12:02 | DVHPN2 ---
Reviewed: Care Plan, H&P, Labs, Medications, Previous Orders, Radiology Changes from previous H/P or p: No Changes General: Per HPI Objective Vitals Vital Signs Date Time Temp Pulse Resp B/P (MAP) Pulse Ox O2 Delivery O2 Flow Rate FiO2 03/10/25 10:19 117/78 03/10/25 10:18 107 03/10/25 08:37 97.5 16 99 97.5 03/10/25 08:31 Nasal Cannula 4.0 03/10/25 08:31 36 Intake/Output Intake and Output 03/10/25 07:00 Intake Total 590 ml Output Total 1075 ml Balance -485 ml Intake Oral 590 ml Output Urine Total 1075 ml Exam GEN: Healthy appearing, well-developed, NAD. On oxygen nasal cannula 2 L HEENT: NC/AT; MMM. CV: Irregularly irregular. No murmurs LUNGS: CTAB, no w/r/c. Significant rales up to middle lungs bilaterally ABD: Soft, NT/ND, NBS, no masses or organomegaly. EXT: skin Warm, well perfused. no rashes. Pitting edema up to shins bilaterally 2 to 3+ NEURO: Ambulating with no limitations. No focal deficits. Medications Current Medications Medications Dose Ordered Sig/Leonard Route Start Time Stop Time Status Last Admin Dose Admin Nitroglycerin 0.4 mg Q5MINP PRN SL 03/06/25 20:15 03/06/25 20:25 0.4 MG Morphine Sulfate 2 mg Q30M PRN IV 03/06/25 20:15 03/06/25 20:26 2 MG Sodium Chloride 1 spr QID EACHNOSTRI 03/06/25 23:00 03/08/25 17:55 1 SPR Empaglifozin 10 mg DAILY PO 03/07/25 10:00 03/10/25 10:17 10 MG Lisinopril 10 mg DAILY PO 03/07/25 10:00 03/10/25 10:19 10 MG Carvedilol 3.125 mg Q12HR PO 03/07/25 10:00 03/10/25 10:18 3.125 MG Furosemide 20 mg BIDD IV 03/07/25 06:00 03/10/25 05:29 20 MG Albuterol 2.5 mg Q6HPRN PRN NEB 03/06/25 23:00 Ondansetron HCl 4 mg Q4HP PRN IV 03/06/25 23:15 Hold Acetaminophen 650 mg Q6HP PRN PO 03/06/25 23:15 Atorvastatin Calcium 40 mg HS PO 03/07/25 22:00 03/09/25 21:09 40 MG Morphine Sulfate 2 mg Q4HPRN PRN IV 03/07/25 14:30 03/08/25 11:31 2 MG Acetaminophen/ Hydrocodone Bitart 1 tab Q4HP PRN PO 03/09/25 19:30 03/10/25 10:16 1 TAB Enoxaparin Sodium 80 mg Q12HR SC 03/09/25 22:00 03/10/25 10:23 80 MG Spironolactone 25 mg DAILY PO 03/10/25 10:00 03/10/25 11:54 25 MG Laboratory Results Laboratory Tests 03/10/25 05:44 Chemistry Test 03/10/25 05:44 Calcium Level 8.5 mg/dL (8.7-10.4) L Microbiology Microbiology Date/Time Source Procedure Growth Status 03/06/25 21:32 Buttock Gram Stain - Final Complete 03/06/25 21:32 Wound Culture - Final Klebsiella pneumoniae Complete Labs and/or images reviewed: Labs reviewed by me, Image(s) reviewed by me Assessment/Plan Assessment/Plan Note for 03/09 80-year-old female presents for evaluation of shortness for breath. Patient endorses a three day history of worsening shortness for breath with associated substernal chest pressure. Denies cough or fever. No other acute complaints reported. Past Medical History CHF, hypertension, asthma, atrial fibrillation 03/09: Patient hospice revoked, here for heart failure exacerbation also has pulmonary hypertension. Severely volume overload we will continue Lasix 20 IV b.i.d.. We will start wound care and physical therapy. Acute on chronic decompensated, HFrEF, NYHA class III Mild CAD involving the RCA Severe tricuspid insufficiency Hypertension Hyperlipidemia Atrial fibrillation status post two direct current cardioversions, likely persistent (on Eliquis) Chronic kidney disease Pulmonary hypertension COPD on home O2 Asthma Severe hypokalemia History of tobacco use Morbidly obese, Class 3 plan: Tylenol, [place] for pain Albuterol for shortness for breath prn Lipitor 40 HS Coreg 3 b.i.d. Jardiance 10 Lovenox 80 q.12 Lasix 20 IV b.i.d. Lisinopril 10 daily 60 Aldactone 25 daily Tele Full code Plan discussed with: Patient My Orders Orders - TOMMY PERALES MD Procedure Category Date Status Time Hydrocodone-Acet PHA 03/09/25 In Process 5/325mg Tab ([place] 19:30 Date of Service: Mar 09, 2025 Billing Provider: TOMMY PERALES MD Common Visit Codes: [id number] INP/OBS CARE(HIGH) TOMMY PERALES MD Mar 10, 2025 12:02
[2025-03-10] MEDS ORDERED: POTASSIUM CHL 20 Meq TABLET PO ONE (12:15)
--- NOTE | 2025-03-10 12:16 | DVHPN2 ---
Reviewed: Care Plan, H&P, Labs, Medications, Previous Orders, Radiology Changes from previous H/P or p: No Changes General: Per HPI Objective Vitals Vital Signs Date Time Temp Pulse Resp B/P (MAP) Pulse Ox O2 Delivery O2 Flow Rate FiO2 03/10/25 10:19 117/78 03/10/25 10:18 107 03/10/25 08:37 97.5 16 99 97.5 03/10/25 08:31 Nasal Cannula 4.0 03/10/25 08:31 36 Intake/Output Intake and Output 03/10/25 07:00 Intake Total 590 ml Output Total 1075 ml Balance -485 ml Intake Oral 590 ml Output Urine Total 1075 ml Exam GEN: Healthy appearing, well-developed, NAD. On oxygen nasal cannula 2 L HEENT: NC/AT; MMM. CV: Irregularly irregular. No murmurs LUNGS: CTAB, no w/r/c. Significant rales up to middle lungs bilaterally ABD: Soft, NT/ND, NBS, no masses or organomegaly. EXT: skin Warm, well perfused. no rashes. Pitting edema up to shins bilaterally 2 to 3+ NEURO: Ambulating with no limitations. No focal deficits. Medications Current Medications Medications Dose Ordered Sig/Leonard Route Start Time Stop Time Status Last Admin Dose Admin Nitroglycerin 0.4 mg Q5MINP PRN SL 03/06/25 20:15 03/06/25 20:25 0.4 MG Morphine Sulfate 2 mg Q30M PRN IV 03/06/25 20:15 03/06/25 20:26 2 MG Sodium Chloride 1 spr QID EACHNOSTRI 03/06/25 23:00 03/08/25 17:55 1 SPR Empaglifozin 10 mg DAILY PO 03/07/25 10:00 03/10/25 10:17 10 MG Lisinopril 10 mg DAILY PO 03/07/25 10:00 03/10/25 10:19 10 MG Carvedilol 3.125 mg Q12HR PO 03/07/25 10:00 03/10/25 10:18 3.125 MG Furosemide 20 mg BIDD IV 03/07/25 06:00 03/10/25 05:29 20 MG Albuterol 2.5 mg Q6HPRN PRN NEB 03/06/25 23:00 Ondansetron HCl 4 mg Q4HP PRN IV 03/06/25 23:15 Hold Acetaminophen 650 mg Q6HP PRN PO 03/06/25 23:15 Atorvastatin Calcium 40 mg HS PO 03/07/25 22:00 03/09/25 21:09 40 MG Morphine Sulfate 2 mg Q4HPRN PRN IV 03/07/25 14:30 03/08/25 11:31 2 MG Acetaminophen/ Hydrocodone Bitart 1 tab Q4HP PRN PO 03/09/25 19:30 03/10/25 10:16 1 TAB Enoxaparin Sodium 80 mg Q12HR SC 03/09/25 22:00 03/10/25 10:23 80 MG Spironolactone 25 mg DAILY PO 03/10/25 10:00 03/10/25 11:54 25 MG Laboratory Results Laboratory Tests 03/10/25 05:44 Chemistry Test 03/10/25 05:44 Calcium Level 8.5 mg/dL (8.7-10.4) L Microbiology Microbiology Date/Time Source Procedure Growth Status 03/06/25 21:32 Buttock Gram Stain - Final Complete 03/06/25 21:32 Wound Culture - Final Klebsiella pneumoniae Complete Labs and/or images reviewed: Labs reviewed by me, Image(s) reviewed by me Assessment/Plan Assessment/Plan 80-year-old female presents for evaluation of shortness for breath. Patient endorses a three day history of worsening shortness for breath with associated substernal chest pressure. Denies cough or fever. No other acute complaints reported. Past Medical History CHF, hypertension, asthma, atrial fibrillation 03/09: Patient hospice revoked, here for heart failure exacerbation also has pulmonary hypertension. Severely volume overload we will continue Lasix 20 IV b.i.d.. We will start wound care and physical therapy. 03/10: Patient is still volume overload. We will follow him labs today which showed elevated bicarb significantly, hypokalemia significant. We will give potassium 40 mEq pill 3 times 2 hours apart. Repeat BNP in the evening. We will keep Lasix 20 IV b.i.d. as bicarb was rising. We will give acetazolamide 500 p.o. once and recheck BNP. Otherwise continue other present management medications. Continue diuresis. We will order wound care and PT today. Acute on chronic decompensated, HFrEF, NYHA class III Mild CAD involving the RCA Severe tricuspid insufficiency Hypertension Hyperlipidemia Atrial fibrillation status post two direct current cardioversions, likely persistent (on Eliquis) Chronic kidney disease Pulmonary hypertension COPD on home O2 Asthma Severe hypokalemia History of tobacco use Morbidly obese, Class 3 plan: Tylenol, [place] for pain Albuterol for shortness for breath prn Lipitor 40 HS Coreg 3 b.i.d. Jardiance 10 Lovenox 80 q.12 Lasix 20 IV b.i.d. Lisinopril 10 daily 60 Aldactone 25 daily Tele Full code Plan discussed with: Patient My Orders Orders - TOMMY PERALES MD Procedure Category Date Status Time Hydrocodone-Acet PHA 03/09/25 In Process 5/325mg Tab ([place] 19:30 Date of Service: Mar 10, 2025 Billing Provider: TOMMY PERALES MD Common Visit Codes: [id number] INP/OBS CARE(HIGH) TOMMY PERALES MD Mar 10, 2025 12:16
--- NOTE | 2025-03-10 12:18 | DVHPN2 ---
Consult Progress Note Subjective Other Systems: Remains in controlled AFib on pvc monitor. Denies any cardiac symptoms at time of assessment (pvc monitor reporting juliet event overnight. After reviewing monitor, no actual juliet events noted. Leads were low voltage and monitor did not accurately count each QRS complex. Leads were changed overnight and monitor no longer reading juliet). Objective vital signs Vital Sign Date Time Temp Pulse Resp B/P (MAP) Pulse Ox O2 Delivery O2 Flow Rate FiO2 03/10/25 10:19 117/78 03/10/25 10:18 107 03/10/25 08:37 97.5 16 99 97.5 03/10/25 08:31 Nasal Cannula 4.0 03/10/25 08:31 36 Total Intake and Output 03/09/25 03/09/25 03/10/25 15:00 23:00 07:00 Intake Total 350 ml 240 ml Output Total 625 ml 450 ml Balance -275 ml -210 ml medications Current Medications Medications Dose Ordered Sig/Leonard Route Start Time Stop Time Status Last Admin Dose Admin Nitroglycerin 0.4 mg Q5MINP PRN SL 03/06/25 20:15 03/06/25 20:25 0.4 MG Morphine Sulfate 2 mg Q30M PRN IV 03/06/25 20:15 03/06/25 20:26 2 MG Sodium Chloride 1 spr QID EACHNOSTRI 03/06/25 23:00 03/08/25 17:55 1 SPR Empaglifozin 10 mg DAILY PO 03/07/25 10:00 03/10/25 10:17 10 MG Lisinopril 10 mg DAILY PO 03/07/25 10:00 03/10/25 10:19 10 MG Carvedilol 3.125 mg Q12HR PO 03/07/25 10:00 03/10/25 10:18 3.125 MG Furosemide 20 mg BIDD IV 03/07/25 06:00 03/10/25 05:29 20 MG Albuterol 2.5 mg Q6HPRN PRN NEB 03/06/25 23:00 Ondansetron HCl 4 mg Q4HP PRN IV 03/06/25 23:15 Hold Acetaminophen 650 mg Q6HP PRN PO 03/06/25 23:15 Atorvastatin Calcium 40 mg HS PO 03/07/25 22:00 03/09/25 21:09 40 MG Morphine Sulfate 2 mg Q4HPRN PRN IV 03/07/25 14:30 03/08/25 11:31 2 MG Acetaminophen/ Hydrocodone Bitart 1 tab Q4HP PRN PO 03/09/25 19:30 03/10/25 10:16 1 TAB Enoxaparin Sodium 80 mg Q12HR SC 03/09/25 22:00 03/10/25 10:23 80 MG Spironolactone 25 mg DAILY PO 03/10/25 10:00 03/10/25 11:54 25 MG Examination: GENERAL:Abnormal, LUNGS:Normal, CVS:Abnormal (Atrial fibrillation with controlled rate), NEURO:Normal laboratory and microbiology Laboratory Tests 03/10/25 05:44 Test 03/10/25 05:44 Range/Units Serum Glucose 81 74-106 mg/dL Problem List/Assessment/Plan Problem List/Assessment/Plan Acute on chronic decompensated, HFrEF, NYHA class III Mild CAD involving the RCA Severe tricuspid insufficiency Hypertension Hyperlipidemia Atrial fibrillation status post two direct current cardioversions, likely persistent (on Eliquis) Chronic kidney disease Pulmonary hypertension COPD on home O2 Asthma Severe hypokalemia History of tobacco use Morbidly obese, Class 3 Plan/Recommendations (Dr. Julio): * Transthoracic echocardiogram this admission reveals an EF of 40%, RVSP 60mmHg * Continue guideline directed medical therapy for CHF as tolerated * Strict intake and output, daily weights, maintain fluid restriction * Preload and afterload reduction * Continue lipid-lowering agent (given documented hx of mild CAD) * [id number] VASc score: 5 points, HAS-BLED: 3 points * Therapeutic Lovenox while inpatient, transition back to DOAC prior to discharge * Continue beta-keyon for rate control * Avoid antiarrhythmic agent given AFib likely permanent * Monitor and replete electrolytes as needed, keep potassium greater than four and magnesium greater than two * Close cardiac surveillance Thank you for allowing us to care for this patient. Please call with any questions or concerns. This medical document was created using an electronic medical record system with voice recognition software and computerized dictation system. Although this document has been carefully reviewed, there might still be some phonetic and typographical errors. Occasional wrong-word or ``sound-alike substitutions may have occurred due to the inherent limitations of voice recognition software. These areas are purely typographical due to imperfections of the software programs and do not reflect any compromise in the patient's medical care. Please read the chart carefully and recognize, using context, where these substitutions have occurred. Plan discussed with: Patient Dietary Evaluation Review Comments: Nutrition Recommendation: 1) Anatoliy 1 pk BID, MVI w/ minerals 1 tab daily, VitC 500mg BID, Zinc sulfate 220mg BID x 10 days 2) Monitor PO intake, lab values, weight trend, and I/O Expected Outcomes/Goals: Wound to improve FU 3-5 days Date of Service: Mar 10, 2025 Billing Provider: SUNIL OROURKE Common Visit Codes: [id number] INP/OBS CARE(HIGH) SUNIL OROURKE Mar 10, 2025 12:18
[2025-03-10] MEDS: POTASSIUM CHL 20 Meq TABLET PO ONE ×2 (14:40→17:38)
[2025-03-10] MEDS: POTASSIUM CHL 20 Meq TABLET PO SCH (14:41)
[2025-03-10] MEDS: acetaZOLAMIDE 250 MG TAB PO ONE (18:23)
[2025-03-11] VITALS (10 sets, daily range): BP systolic 91–100; BP diastolic 50–73; PULSE 78–110; RESP 17–20; TEMP 97.4–98.1; O2SAT 91–99
[2025-03-11] MEDS: POTASSIUM CHL 20 Meq TABLET PO ONE ×2 (03:02→03:05)
[2025-03-11 06:53] LABS: Hematocrit 43.4 % (36.0-46.0); Hemoglobin 14.1 g/dL (12.2-16.2); Mean Corpuscular Hemoglobin 27.3 pg (28.0-32.0); Mean Corpuscular Volume 84.2 fL (80.0-100.0); Nucleated Red Blood Cells % 0.1 %
[2025-03-11 07:08] LABS: Alanine Aminotransferase 13 U/L (7-40); Albumin 3.4 g/dL (3.2-4.8); Anion Gap 10 (5-15); BUN/Creatinine Ratio 14.9 (10.0-20.0); Bilirubin, Total 1.0 mg/dL (0.2-1.0); Blood Urea Nitrogen 14 mg/dL (9-23); Glucose 92 mg/dL (74-106); Potassium 3.9 mmol/L (3.5-5.1); Total Protein 6.4 g/dL (5.7-8.2)
[2025-03-11 07:10] LABS: Alkaline Phosphatase 139 U/L (46-116); Calcium 8.6 mg/dL (8.7-10.4); Carbon Dioxide 32 mmol/L (20-31); Chloride 93 mmol/L (98-107); Sodium 135 mmol/L (136-145)
--- NOTE | 2025-03-11 11:31 | DVHPN2 ---
Reviewed: Care Plan, H&P, Labs, Medications, Previous Orders, Radiology Changes from previous H/P or p: No Changes General: Per HPI Objective Vitals Vital Signs Date Time Temp Pulse Resp B/P (MAP) Pulse Ox O2 Delivery O2 Flow Rate FiO2 03/11/25 10:08 102 91/60 03/11/25 09:00 97.7 20 97 97.7 03/11/25 00:23 Nasal Cannula 5.0 03/11/25 00:23 40 Intake/Output Intake and Output 03/11/25 07:00 Intake Total 442 ml Output Total 1200 ml Balance -758 ml Intake Oral 442 ml Output Urine Total 1200 ml Exam GEN: Healthy appearing, well-developed, NAD. On oxygen nasal cannula 2 L HEENT: NC/AT; MMM. CV: Irregularly irregular. No murmurs LUNGS: CTAB, no w/r/c. Significant rales up to middle lungs bilaterally ABD: Soft, NT/ND, NBS, no masses or organomegaly. EXT: skin Warm, well perfused. no rashes. Pitting edema up to shins bilaterally 2 to 3+ NEURO: Ambulating with no limitations. No focal deficits. Medications Current Medications Medications Dose Ordered Sig/Leonrad Route Start Time Stop Time Status Last Admin Dose Admin Nitroglycerin 0.4 mg Q5MINP PRN SL 03/06/25 20:15 03/06/25 20:25 0.4 MG Morphine Sulfate 2 mg Q30M PRN IV 03/06/25 20:15 03/06/25 20:26 2 MG Sodium Chloride 1 spr QID EACHNOSTRI 03/06/25 23:00 03/11/25 06:27 1 SPR Empaglifozin 10 mg DAILY PO 03/07/25 10:00 03/11/25 10:11 10 MG Lisinopril 10 mg DAILY PO 03/07/25 10:00 03/10/25 10:19 10 MG Carvedilol 3.125 mg Q12HR PO 03/07/25 10:00 03/11/25 10:08 3.125 MG Furosemide 20 mg BIDD IV 03/07/25 06:00 03/11/25 06:26 20 MG Albuterol 2.5 mg Q6HPRN PRN NEB 03/06/25 23:00 Ondansetron HCl 4 mg Q4HP PRN IV 03/06/25 23:15 Hold Acetaminophen 650 mg Q6HP PRN PO 03/06/25 23:15 Atorvastatin Calcium 40 mg HS PO 03/07/25 22:00 03/10/25 22:23 40 MG Morphine Sulfate 2 mg Q4HPRN PRN IV 03/07/25 14:30 03/08/25 11:31 2 MG Acetaminophen/ Hydrocodone Bitart 1 tab Q4HP PRN PO 03/09/25 19:30 03/11/25 06:17 1 TAB Enoxaparin Sodium 80 mg Q12HR SC 03/09/25 22:00 03/11/25 10:11 80 MG Spironolactone 25 mg DAILY PO 03/10/25 10:00 03/11/25 10:11 25 MG Laboratory Results Laboratory Tests 03/11/25 05:18 Chemistry Test 03/11/25 05:18 Albumin 3.4 g/dL (3.2-4.8) Calcium Level 8.6 mg/dL (8.7-10.4) L Total Protein 6.4 g/dL (5.7-8.2) LFT Test 03/11/25 05:18 Alanine Aminotransferase (ALT) 13 U/L (7-40) Alkaline Phosphatase 139 U/L (46-116) H Aspartate Amino Transferase (AST) 25 U/L (13-40) Total Bilirubin 1.0 mg/dL (0.2-1.0) Microbiology Microbiology Date/Time Source Procedure Growth Status 03/06/25 21:32 Buttock Gram Stain - Final Complete 03/06/25 21:32 Wound Culture - Final Klebsiella pneumoniae Complete Labs and/or images reviewed: Labs reviewed by me, Image(s) reviewed by me Assessment/Plan Assessment/Plan 80-year-old female presents for evaluation of shortness for breath. Patient endorses a three day history of worsening shortness for breath with associated substernal chest pressure. Denies cough or fever. No other acute complaints reported. Past Medical History CHF, hypertension, asthma, atrial fibrillation 03/09: Patient hospice revoked, here for heart failure exacerbation also has pulmonary hypertension. Severely volume overload we will continue Lasix 20 IV b.i.d.. We will start wound care and physical therapy. 03/10: Patient is still volume overload. We will follow him labs today which showed elevated bicarb significantly, hypokalemia significant. We will give potassium 40 mEq pill 3 times 2 hours apart. Repeat BNP in the evening. We will keep Lasix 20 IV b.i.d. as bicarb was rising. We will give acetazolamide 500 p.o. once and recheck BNP. Otherwise continue other present management medications. Continue diuresis. We will order wound care and PT today. 03/11: Patient will discuss code status with , currently we will keep full code. Urine output over 24 hours only 1.2 L, we will continue Aldactone current dose and increase Lasix to 40 IV b.i.d.. Continue nasal cannula oxygen maintain oxygen saturation 92-95. Continuing accurate I&Os,. Continue q.2h turns and Medihoney dressing change daily with wound cleansing. Continue PT therapy. Acute on chronic decompensated, HFrEF, NYHA class III Mild CAD involving the RCA Severe tricuspid insufficiency Hypertension Hyperlipidemia Atrial fibrillation status post two direct current cardioversions, likely persistent (on Eliquis) Chronic kidney disease Pulmonary hypertension COPD on home O2 Asthma Severe hypokalemia History of tobacco use Morbidly obese, Class 3 plan: Tylenol, [place] for pain Albuterol for shortness for breath prn Lipitor 40 HS Coreg 3 b.i.d. Jardiance 10 Lovenox 80 q.12 Lasix 20 IV b.i.d. Lisinopril 10 daily 60 Aldactone 25 daily Tele Full code Plan discussed with: Patient My Orders Orders - TOMMY PERALES MD Procedure Category Date Status Time * Wound Consult CONS 03/10/25 Transmitted Pt Request For Service PT 03/10/25 Logged 11:57 Date of Service: Mar 11, 2025 Billing Provider: TOMMY PERALES MD Common Visit Codes: [id number] INP/OBS CARE(HIGH) TOMMY PERALES MD Mar 11, 2025 11:31
--- NOTE | 2025-03-11 17:33 | DVHPN2 ---
Consult Progress Note Subjective Other Systems: Patient in atrial fibrillation with controlled rate on telemetry monitor. The patient denies any cardiac symptoms at time of assessment Objective vital signs Vital Sign Date Time Temp Pulse Resp B/P (MAP) Pulse Ox O2 Delivery O2 Flow Rate FiO2 03/11/25 17:30 97.4 88 18 96/65 (75) 95 97.4 03/11/25 17:00 Room Air 0.0 03/11/25 17:00 21 Total Intake and Output 03/10/25 03/10/25 03/11/25 15:00 23:00 07:00 Intake Total 242 ml 200 ml 0 ml Output Total 800 ml 400 ml Balance 242 ml -600 ml -400 ml medications Current Medications Medications Dose Ordered Sig/Leonard Route Start Time Stop Time Status Last Admin Dose Admin Nitroglycerin 0.4 mg Q5MINP PRN SL 03/06/25 20:15 03/06/25 20:25 0.4 MG Morphine Sulfate 2 mg Q30M PRN IV 03/06/25 20:15 03/06/25 20:26 2 MG Sodium Chloride 1 spr QID EACHNOSTRI 03/06/25 23:00 03/11/25 12:00 1 SPR Empaglifozin 10 mg DAILY PO 03/07/25 10:00 03/11/25 10:11 10 MG Lisinopril 10 mg DAILY PO 03/07/25 10:00 03/10/25 10:19 10 MG Carvedilol 3.125 mg Q12HR PO 03/07/25 10:00 03/10/25 10:18 3.125 MG Albuterol 2.5 mg Q6HPRN PRN NEB 03/06/25 23:00 Ondansetron HCl 4 mg Q4HP PRN IV 03/06/25 23:15 Hold Acetaminophen 650 mg Q6HP PRN PO 03/06/25 23:15 Atorvastatin Calcium 40 mg HS PO 03/07/25 22:00 03/10/25 22:23 40 MG Morphine Sulfate 2 mg Q4HPRN PRN IV 03/07/25 14:30 03/11/25 16:36 2 MG Acetaminophen/ Hydrocodone Bitart 1 tab Q4HP PRN PO 03/09/25 19:30 03/11/25 14:25 1 TAB Enoxaparin Sodium 80 mg Q12HR SC 03/09/25 22:00 03/11/25 10:11 80 MG Spironolactone 25 mg DAILY PO 03/10/25 10:00 03/11/25 10:11 25 MG Furosemide 40 mg BIDD IV 03/11/25 18:00 Examination: GENERAL:Abnormal (Generalized weakness), LUNGS:Normal, CVS:Normal (Atrial fibrillation with controlled rate), NEURO:Normal laboratory and microbiology Laboratory Tests 03/11/25 05:18 Test 03/11/25 05:18 Range/Units Serum Glucose 92 74-106 mg/dL Problem List/Assessment/Plan Problem List/Assessment/Plan Acute on chronic decompensated, HFrEF, NYHA class III Mild CAD involving the RCA Severe tricuspid insufficiency Hypertension Hyperlipidemia Atrial fibrillation status post two direct current cardioversions, likely persistent (on Eliquis) Chronic kidney disease Pulmonary hypertension COPD on home O2 Asthma Severe hypokalemia, resolved History of tobacco use Morbidly obese, Class 3 Plan/Recommendations (Dr. Julio): * Transthoracic echocardiogram this admission reveals an EF of 40%, RVSP 60mmHg * Continue guideline directed medical therapy for CHF as tolerated * Strict intake and output, daily weights, maintain fluid restriction * Preload and afterload reduction * Continue lipid-lowering agent and single antiplatelet therapy (given documented hx of mild CAD) * [id number] VASc score: 5 points, HAS-BLED: 3 points * Therapeutic Lovenox while inpatient, transition back to DOAC prior to discharge * Continue beta-keyon for rate control * Avoid antiarrhythmic agent given AFib likely permanent * Monitor and replete electrolytes as needed, keep potassium greater than four and magnesium greater than two * Close cardiac surveillance Case discussed with . There is no further inpatient cardiac workup indicated at this time. The patient has been educated to follow up with Cardiology in the outpatient setting within 1-2 weeks post discharge. Thank you for allowing us to care for this patient. Please reconsult if needed. This medical document was created using an electronic medical record system with voice recognition software and computerized dictation system. Although this document has been carefully reviewed, there might still be some phonetic and typographical errors. Occasional wrong-word or ``sound-alike substitutions may have occurred due to the inherent limitations of voice recognition software. These areas are purely typographical due to imperfections of the software programs and do not reflect any compromise in the patient's medical care. Please read the chart carefully and recognize, using context, where these substitutions have occurred. Plan discussed with: Patient Dietary Evaluation Review Comments: Nutrition Recommendation: 1) Anatoliy 1 pk BID, MVI w/ minerals 1 tab daily, VitC 500mg BID, Zinc sulfate 220mg BID x 10 days 2) Monitor PO intake, lab values, weight trend, and I/O Expected Outcomes/Goals: Wound to improve FU 3-5 days Date of Service: Mar 11, 2025 Billing Provider: SUNIL OROURKE Common Visit Codes: [id number] INP/OBS CARE(HIGH) SUNIL OROURKE Mar 11, 2025 17:33
[2025-03-11] MEDS: FUROSEMIDE 20 MG/2 ML VIAL IV SCH (18:00)
[2025-03-12] VITALS (11 sets, daily range): BP systolic 92–137; BP diastolic 55–112; PULSE 62–123; RESP 14–19; TEMP 97.4–98.2; O2SAT 94–99
[2025-03-12 06:26] LABS: Alanine Aminotransferase 10 U/L (7-40); Calcium 8.8 mg/dL (8.7-10.4); Potassium 4.0 mmol/L (3.5-5.1)
[2025-03-12 06:27] LABS: Albumin 3.2 g/dL (3.2-4.8); Alkaline Phosphatase 134 U/L (46-116); Anion Gap 9 (5-15); BUN/Creatinine Ratio 16.5 (10.0-20.0); Blood Urea Nitrogen 16 mg/dL (9-23); Carbon Dioxide 34 mmol/L (20-31); Chloride 95 mmol/L (98-107); Glucose 61 mg/dL (74-106); Magnesium 1.6 mg/dL (1.6-2.6); Sodium 138 mmol/L (136-145); Total Protein 6.0 g/dL (5.7-8.2)
[2025-03-12 06:28] LABS: Bilirubin, Total 1.1 mg/dL (0.2-1.0)
--- NOTE | 2025-03-12 09:44 | DVHPN2 ---
Reviewed: Care Plan, H&P, Labs, Medications, Previous Orders, Radiology Changes from previous H/P or p: No Changes General: Per HPI Objective Vitals Vital Signs Date Time Temp Pulse Resp B/P (MAP) Pulse Ox O2 Delivery O2 Flow Rate FiO2 03/12/25 06:14 95/74 03/12/25 05:21 97.7 84 19 99 97.7 03/11/25 20:00 Nasal Cannula* 3 32 Intake/Output Intake and Output 03/12/25 07:00 Intake Total 980 ml Output Total 1400 ml Balance -420 ml Intake Oral 980 ml Output Urine Total 1400 ml # Bowel Movements 1 Exam GEN: Healthy appearing, well-developed, NAD. On oxygen nasal cannula 2 L HEENT: NC/AT; MMM. CV: Irregularly irregular. No murmurs LUNGS: CTAB, no w/r/c. Significant rales up to middle lungs bilaterally ABD: Soft, NT/ND, NBS, no masses or organomegaly. EXT: skin Warm, well perfused. no rashes. Pitting edema up to shins bilaterally 2 to 3+ NEURO: Ambulating with no limitations. No focal deficits. Medications Current Medications Medications Dose Ordered Sig/Leonard Route Start Time Stop Time Status Last Admin Dose Admin Nitroglycerin 0.4 mg Q5MINP PRN SL 03/06/25 20:15 03/06/25 20:25 0.4 MG Morphine Sulfate 2 mg Q30M PRN IV 03/06/25 20:15 03/06/25 20:26 2 MG Sodium Chloride 1 spr QID EACHNOSTRI 03/06/25 23:00 03/11/25 18:27 1 SPR Empaglifozin 10 mg DAILY PO 03/07/25 10:00 03/11/25 10:11 10 MG Lisinopril 10 mg DAILY PO 03/07/25 10:00 03/10/25 10:19 10 MG Carvedilol 3.125 mg Q12HR PO 03/07/25 10:00 03/10/25 10:18 3.125 MG Albuterol 2.5 mg Q6HPRN PRN NEB 03/06/25 23:00 Ondansetron HCl 4 mg Q4HP PRN IV 03/06/25 23:15 Hold Acetaminophen 650 mg Q6HP PRN PO 03/06/25 23:15 Atorvastatin Calcium 40 mg HS PO 03/07/25 22:00 03/11/25 22:38 40 MG Morphine Sulfate 2 mg Q4HPRN PRN IV 03/07/25 14:30 03/11/25 16:36 2 MG Acetaminophen/ Hydrocodone Bitart 1 tab Q4HP PRN PO 03/09/25 19:30 03/11/25 22:47 1 TAB Enoxaparin Sodium 80 mg Q12HR SC 03/09/25 22:00 03/11/25 22:38 80 MG Spironolactone 25 mg DAILY PO 03/10/25 10:00 03/11/25 10:11 25 MG Furosemide 60 mg BIDD IV 03/12/25 18:00 UNV Laboratory Results Laboratory Tests 03/11/25 05:18 03/12/25 05:32 Chemistry Test 03/12/25 05:32 Albumin 3.2 g/dL (3.2-4.8) Calcium Level 8.8 mg/dL (8.7-10.4) Magnesium Level 1.6 mg/dL (1.6-2.6) Total Protein 6.0 g/dL (5.7-8.2) LFT Test 03/12/25 05:32 Alanine Aminotransferase (ALT) 10 U/L (7-40) Alkaline Phosphatase 134 U/L (46-116) H Aspartate Amino Transferase (AST) 19 U/L (13-40) Total Bilirubin 1.1 mg/dL (0.2-1.0) H Microbiology Microbiology Date/Time Source Procedure Growth Status 03/06/25 21:32 Buttock Gram Stain - Final Complete 03/06/25 21:32 Wound Culture - Final Klebsiella pneumoniae Complete Labs and/or images reviewed: Labs reviewed by me, Image(s) reviewed by me Assessment/Plan Assessment/Plan 80-year-old female presents for evaluation of shortness for breath. Patient endorses a three day history of worsening shortness for breath with associated substernal chest pressure. Denies cough or fever. No other acute complaints reported. Past Medical History CHF, hypertension, asthma, atrial fibrillation 03/09: Patient hospice revoked, here for heart failure exacerbation also has pulmonary hypertension. Severely volume overload we will continue Lasix 20 IV b.i.d.. We will start wound care and physical therapy. 03/10: Patient is still volume overload. We will follow him labs today which showed elevated bicarb significantly, hypokalemia significant. We will give potassium 40 mEq pill 3 times 2 hours apart. Repeat BNP in the evening. We will keep Lasix 20 IV b.i.d. as bicarb was rising. We will give acetazolamide 500 p.o. once and recheck BNP. Otherwise continue other present management medications. Continue diuresis. We will order wound care and PT today. 03/11: Patient will discuss code status with , currently we will keep full code. Urine output over 24 hours only 1.2 L, we will continue Aldactone current dose and increase Lasix to 40 IV b.i.d.. Continue nasal cannula oxygen maintain oxygen saturation 92-95. Continuing accurate I&Os,. Continue q.2h turns and Medihoney dressing change daily with wound cleansing. Continue PT therapy. 03/12: Patient is still severely edematous, moving lower extremities, PT is ordered. Apparently urine output is 1.4 L only from yesterday. We will increase Lasix 60 t.i.d.. We will get ABG as bicarb is I ruled out hypercarbia. If there is no hypercarbia we will give acetazolamide. Acute on chronic decompensated, HFrEF, NYHA class III Mild CAD involving the RCA Severe tricuspid insufficiency Hypertension Hyperlipidemia Atrial fibrillation status post two direct current cardioversions, likely persistent (on Eliquis) Chronic kidney disease Pulmonary hypertension COPD on home O2 Asthma Severe hypokalemia History of tobacco use Morbidly obese, Class 3 plan: Tylenol, [place] for pain Albuterol for shortness for breath prn Lipitor 40 HS Coreg 3 b.i.d. Jardiance 10 Lovenox 80 q.12 Lasix 20 IV b.i.d. Lisinopril 10 daily 60 Aldactone 25 daily Tele Full code Plan discussed with: Patient My Orders Orders - TOMMY PERALES MD Procedure Category Date Status Time Furosemide Injection PHA 03/12/25 Logged (Lasix Injection) 18:00 Furosemide Injection PHA 03/12/25 Logged (Lasix Injection) 09:45 Abg W/ Co-Ox RT 03/12/25 Verified 09:40 Date of Service: Mar 12, 2025 Billing Provider: TOMMY PERALES MD Common Visit Codes: [id number] INP/OBS CARE(HIGH) TOMMY PERALES MD Mar 12, 2025 09:44
[2025-03-12] MEDS: FUROSEMIDE 20 MG/2 ML VIAL IV ONE (10:00)
[2025-03-12] MEDS: FUROSEMIDE 20 MG/2 ML VIAL IV SCH (12:12)
[2025-03-12] MEDS: FAMOTIDINE (10MG/ML) 2ML VL IV ONE (14:45)
[2025-03-12] MEDS: KETOROLAC TROMETH 30 MG/ML 1ML VIAL IV ONE (14:45)
[2025-03-12] MEDS ORDERED: PROPRANOLOL HCL 20 MG TAB PO PRN (15:45)
[2025-03-12] MEDS ORDERED: MORPHINE SULFATE INJ 2 MG/ml SYRG IV PRN (15:45)
[2025-03-12] MEDS: HYDROcodone-ACET 10/325MG TAB PO PRN (16:12)
[2025-03-12] MEDS: FUROSEMIDE 40 MG/4 ML VIAL IV ONE (16:14)
[2025-03-12 16:28] LABS: Potassium 4.0 mmol/L (3.5-5.1)
[2025-03-12 16:29] LABS: Anion Gap 10 (5-15); Calcium 9.1 mg/dL (8.7-10.4)
[2025-03-12 16:34] LABS: BUN/Creatinine Ratio 16.2 (10.0-20.0); Blood Urea Nitrogen 17 mg/dL (9-23); Glucose 91 mg/dL (74-106)
[2025-03-12 16:36] LABS: Base Excess 5.7 mmol/L (-2.0-3.0)
[2025-03-12 16:37] LABS: Carbon Dioxide 33 mmol/L (20-31); Chloride 92 mmol/L (98-107); Sodium 135 mmol/L (136-145)
[2025-03-12] MEDS: LORazepam 0.5 MG TAB PO PRN (17:34)
[2025-03-12] MEDS ORDERED: FUROSEMIDE 20 MG/2 ML VIAL IV SCH (18:00)
[2025-03-12] MEDS: GABAPENTIN 100 MG CAP PO SCH (21:44)
[2025-03-13] VITALS (7 sets, daily range): BP systolic 92–101; BP diastolic 60–65; PULSE 64–117; RESP 17–20; TEMP 97.1–98.3; O2SAT 95–99
[2025-03-13 07:39] LABS: Alanine Aminotransferase 11 U/L (7-40); Albumin 3.3 g/dL (3.2-4.8); Alkaline Phosphatase 144 U/L (46-116); Anion Gap 9 (5-15); BUN/Creatinine Ratio 16.4 (10.0-20.0); Blood Urea Nitrogen 19 mg/dL (9-23); Calcium 8.9 mg/dL (8.7-10.4); Carbon Dioxide 34 mmol/L (20-31); Chloride 95 mmol/L (98-107); Glucose 69 mg/dL (74-106); Potassium 3.9 mmol/L (3.5-5.1); Sodium 138 mmol/L (136-145); Total Protein 6.2 g/dL (5.7-8.2)
[2025-03-13 07:40] LABS: Bilirubin, Total 0.9 mg/dL (0.2-1.0)
--- NOTE | 2025-03-13 10:06 | DVHPN2 ---
Reviewed: Care Plan, H&P, Labs, Medications, Previous Orders, Radiology Changes from previous H/P or p: No Changes General: Per HPI Objective Vitals Vital Signs Date Time Temp Pulse Resp B/P (MAP) Pulse Ox O2 Delivery O2 Flow Rate FiO2 03/13/25 05:47 92/65 03/13/25 05:00 97.6 84 19 97 97.6 03/12/25 20:57 2.0 03/12/25 20:00 Nasal Cannula* 32 Intake/Output Intake and Output 03/13/25 07:00 Intake Total 1200 ml Output Total 1200 ml Balance 0 ml Intake Oral 1200 ml Output Urine Total 1200 ml # Bowel Movements 3 Exam GEN: Healthy appearing, well-developed, NAD. On oxygen nasal cannula 2 L HEENT: NC/AT; MMM. CV: Irregularly irregular. No murmurs LUNGS: CTAB, no w/r/c. Significant rales up to middle lungs bilaterally ABD: Soft, NT/ND, NBS, no masses or organomegaly. EXT: skin Warm, well perfused. no rashes. Pitting edema up to shins bilaterally 2 to 3+ NEURO: Ambulating with no limitations. No focal deficits. Medications Current Medications Medications Dose Ordered Sig/Leonard Route Start Time Stop Time Status Last Admin Dose Admin Nitroglycerin 0.4 mg Q5MINP PRN SL 03/06/25 20:15 03/06/25 20:25 0.4 MG Sodium Chloride 1 spr QID EACHNOSTRI 03/06/25 23:00 03/12/25 18:20 1 SPR Empaglifozin 10 mg DAILY PO 03/07/25 10:00 03/12/25 10:02 10 MG Lisinopril 10 mg DAILY PO 03/07/25 10:00 03/12/25 10:40 10 MG Carvedilol 3.125 mg Q12HR PO 03/07/25 10:00 03/12/25 10:00 3.125 MG Albuterol 2.5 mg Q6HPRN PRN NEB 03/06/25 23:00 Cancel Ondansetron HCl 4 mg Q4HP PRN IV 03/06/25 23:15 Hold Acetaminophen 650 mg Q6HP PRN PO 03/06/25 23:15 Atorvastatin Calcium 40 mg HS PO 03/07/25 22:00 03/12/25 21:44 40 MG Enoxaparin Sodium 80 mg Q12HR SC 03/09/25 22:00 03/12/25 21:44 80 MG Spironolactone 25 mg DAILY PO 03/10/25 10:00 03/12/25 10:02 25 MG Famotidine 20 mg DAILY IV 03/13/25 10:00 Acetaminophen/ Hydrocodone Bitart 1 tab Q4HP PRN PO 03/12/25 15:45 03/13/25 05:58 1 TAB Morphine Sulfate 1 mg Q4HP PRN IV 03/12/25 16:15 Gabapentin 100 mg BID PO 03/12/25 22:00 03/12/25 21:44 100 MG Lorazepam 1 mg Q4HP PRN PO 03/12/25 16:30 03/12/25 17:34 1 MG Laboratory Results Laboratory Tests 03/11/25 05:18 03/13/25 06:06 Chemistry Test 03/12/25 16:11 03/13/25 06:06 Calcium Level 9.1 mg/dL (8.7-10.4) 8.9 mg/dL (8.7-10.4) Albumin 3.3 g/dL (3.2-4.8) Total Protein 6.2 g/dL (5.7-8.2) LFT Test 03/13/25 06:06 Alanine Aminotransferase (ALT) 11 U/L (7-40) Alkaline Phosphatase 144 U/L (46-116) H Aspartate Amino Transferase (AST) 19 U/L (13-40) Total Bilirubin 0.9 mg/dL (0.2-1.0) Blood Gas Results Test 03/12/25 16:22 Arterial Blood pH 7.557 (7.350-7.450) FiO2 % 32.0 Microbiology Microbiology Date/Time Source Procedure Growth Status 03/06/25 21:32 Buttock Gram Stain - Final Complete 03/06/25 21:32 Wound Culture - Final Klebsiella pneumoniae Complete Labs and/or images reviewed: Labs reviewed by me, Image(s) reviewed by me Assessment/Plan Assessment/Plan 80-year-old female presents for evaluation of shortness for breath. Patient endorses a three day history of worsening shortness for breath with associated substernal chest pressure. Denies cough or fever. No other acute complaints reported. Past Medical History CHF, hypertension, asthma, atrial fibrillation 03/09: Patient hospice revoked, here for heart failure exacerbation also has pulmonary hypertension. Severely volume overload we will continue Lasix 20 IV b.i.d.. We will start wound care and physical therapy. 03/10: Patient is still volume overload. We will follow him labs today which showed elevated bicarb significantly, hypokalemia significant. We will give potassium 40 mEq pill 3 times 2 hours apart. Repeat BNP in the evening. We will keep Lasix 20 IV b.i.d. as bicarb was rising. We will give acetazolamide 500 p.o. once and recheck BNP. Otherwise continue other present management medications. Continue diuresis. We will order wound care and PT today. 03/11: Patient will discuss code status with , currently we will keep full code. Urine output over 24 hours only 1.2 L, we will continue Aldactone current dose and increase Lasix to 40 IV b.i.d.. Continue nasal cannula oxygen maintain oxygen saturation 92-95. Continuing accurate I&Os,. Continue q.2h turns and Medihoney dressing change daily with wound cleansing. Continue PT therapy. 03/12: Patient is still severely edematous, moving lower extremities, PT is ordered. Apparently urine output is 1.4 L only from yesterday. We will increase Lasix 60 t.i.d.. We will get ABG as bicarb is I ruled out hypercarbia. If there is no hypercarbia we will give acetazolamide. 03/13: Labs suggestive of JULIANNA, we will hold further Lasix. On exam still we will volume overload attempt edema lower extremity +1 to +2. We got ABG gas showing no hypercarbia. Patient is in metabolic alkalosis from diuresis. Blood pressure low. We will give 250 bolus LR, hold off Lasix. Patient is more sleepy this a.m.. We will repeat CBC, ammonia, Mag phos, BNP,. We will get portable chest x-ray., Elevate legs. Hold blood pressure medications, except change Coreg to metoprolol tartrate 12.5 b.i.d... Patient is on oxygen 3 L home oxygen level. Decrease breath sounds at bases. - ammonia ok. tn neg. cxr looks clear. bnp mar 1100 to 500s. labs look good. bicarb high with met graciela. will give 1x iv 250 acetazolamide. otherwise continue 1.2L fluid rst intake and will hold iv lasix today diagnosis: Acute on chronic decompensated, HFrEF, NYHA class III Mild CAD involving the RCA Severe tricuspid insufficiency Hypertension Hyperlipidemia Atrial fibrillation status post two direct current cardioversions, likely persistent (on Eliquis) Chronic kidney disease Pulmonary hypertension COPD on home O2 Asthma Severe hypokalemia History of tobacco use Morbidly obese, Class 3 plan: Tylenol, [place] for pain Albuterol for shortness for breath prn Lipitor 40 HS Coreg 3 b.i.d. Jardiance 10 Lovenox 80 q.12 Lasix 20 IV b.i.d. Lisinopril 10 daily 60 Aldactone 25 daily Tele Full code Plan discussed with: Patient My Orders Orders - TOMMY PERALES MD Procedure Category Date Status Time Famotidine Injection PHA 03/13/25 In Process (Pepcid Injection) 10:00 Hydrocodone-Acet PHA 03/12/25 In Process 10/325mg Tab ([place] 15:45 Abg W/ Co-Ox RT 03/12/25 Logged 15:45 Morphine Sulfate PHA 03/12/25 In Process Injection 16:15 Gabapentin Capsule PHA 03/12/25 In Process (Neurontin Capsule) 22:00 Lorazepam Tablet PHA 03/12/25 In Process (Ativan Tablet) 16:30 Lactated Ringer's PHA 03/13/25 Logged 10:00 Troponin-I Hs LAB 03/13/25 Logged 09:52 Troponin-I Hs LAB 03/13/25 Logged 10:52 Troponin-I Hs LAB 03/13/25 Logged 12:52 D-Dimer LAB 03/13/25 Logged 09:52 Ammonia LAB 03/13/25 Logged 09:52 Complete Blood Count LAB 03/13/25 Logged 09:52 Magnesium LAB 03/13/25 Logged 09:52 Chest Portable XY 03/13/25 Logged 09:52 B-Type Natriuretic LAB 03/13/25 Logged Peptide 09:52 Date of Service: Mar 13, 2025 Billing Provider: TOMMY PERALES MD Common Visit Codes: [id number] INP/OBS CARE(HIGH) TOMMY PERALES MD Mar 13, 2025 10:06
[2025-03-13] MEDS: LACTATED RINGER'S 250 ML IV ONE (10:23)
--- NOTE | 2025-03-13 10:36 | DVH ---
CHEST RADIOGRAPH Indication: SOB Technique: Single frontal view of the chest was obtained Comparison: XY CHEST XRAY 1 VIEW on DOS: 03/06/25, XY CHEST XRAY 1 VIEW on DOS: 12/21/24, XY CHEST PORTABLE on DOS: 10/25/24 FINDINGS: Lines and Tubes: None Lungs: No focal consolidation. Pleura: No effusion. No pneumothorax. Cardiomediastinal contours: Stable cardiomegaly Bones: No acute osseous abnormality. IMPRESSION: 1. No acute cardiopulmonary disease.
[2025-03-13 11:07] LABS: Hematocrit 42.0 % (36.0-46.0); Hemoglobin 14.0 g/dL (12.2-16.2); Mean Corpuscular Hemoglobin 27.9 pg (28.0-32.0); Mean Corpuscular Volume 83.9 fL (80.0-100.0); Nucleated Red Blood Cells % 0.2 %
[2025-03-13] MEDS: FAMOTIDINE (10MG/ML) 2ML VL IV SCH (12:10)
[2025-03-13] MEDS: METOPROLOL TARTRATE 25 MG TAB PO SCH (12:38)
[2025-03-13] MEDS ORDERED: acetaZOLAMIDE SODIUM 500 MG VL IV ONE (14:00)
[2025-03-13] MEDS: acetaZOLAMIDE 250 MG TAB PO ONE (17:40)
[2025-03-14] VITALS (8 sets, daily range): BP systolic 92–117; BP diastolic 66–76; PULSE 70–108; RESP 16–20; TEMP 96.5–98.3; O2SAT 90–99
[2025-03-14 06:19] LABS: Anion Gap 11 (5-15); Carbon Dioxide 26 mmol/L (20-31); Potassium 3.9 mmol/L (3.5-5.1)
[2025-03-14 06:21] LABS: Calcium 8.7 mg/dL (8.7-10.4)
[2025-03-14 06:23] LABS: Chloride 96 mmol/L (98-107); Sodium 133 mmol/L (136-145)
[2025-03-14 06:25] LABS: BUN/Creatinine Ratio 16.1 (10.0-20.0); Blood Urea Nitrogen 20 mg/dL (9-23); Glucose 100 mg/dL (74-106)
[2025-03-14] MEDS: SODIUM CHLORIDE 0.9% 250 ML IV ONE (09:30)
--- NOTE | 2025-03-14 10:02 | DVHPN2 ---
Reviewed: Care Plan, H&P, Labs, Medications, Previous Orders, Radiology Changes from previous H/P or p: No Changes General: Per HPI Objective Vitals Vital Signs Date Time Temp Pulse Resp B/P (MAP) Pulse Ox O2 Delivery O2 Flow Rate FiO2 03/14/25 09:37 75 96/75 03/14/25 09:07 98.3 17 96 98.3 03/14/25 08:20 Nasal Cannula* 3 32 Intake/Output Intake and Output 03/14/25 07:00 Intake Total 1150 ml Output Total 600 ml Balance 550 ml Intake Oral 1150 ml Output Urine Total 600 ml # Bowel Movements 2 Exam GEN: Healthy appearing, well-developed, NAD. On oxygen nasal cannula 2 L HEENT: NC/AT; MMM. CV: Irregularly irregular. No murmurs LUNGS: CTAB, no w/r/c. Significant rales up to middle lungs bilaterally ABD: Soft, NT/ND, NBS, no masses or organomegaly. EXT: skin Warm, well perfused. no rashes. Pitting edema up to shins bilaterally 2 to 3+ NEURO: Ambulating with no limitations. No focal deficits. Medications Current Medications Medications Dose Ordered Sig/Leonard Route Start Time Stop Time Status Last Admin Dose Admin Nitroglycerin 0.4 mg Q5MINP PRN SL 03/06/25 20:15 03/06/25 20:25 0.4 MG Sodium Chloride 1 spr QID EACHNOSTRI 03/06/25 23:00 03/13/25 22:09 1 SPR Empaglifozin 10 mg DAILY PO 03/07/25 10:00 03/14/25 09:35 10 MG Albuterol 2.5 mg Q6HPRN PRN NEB 03/06/25 23:00 Cancel Ondansetron HCl 4 mg Q4HP PRN IV 03/06/25 23:15 Hold Acetaminophen 650 mg Q6HP PRN PO 03/06/25 23:15 Atorvastatin Calcium 40 mg HS PO 03/07/25 22:00 03/13/25 21:55 40 MG Enoxaparin Sodium 80 mg Q12HR SC 03/09/25 22:00 03/14/25 09:36 80 MG Spironolactone 25 mg DAILY PO 03/10/25 10:00 03/14/25 09:36 25 MG Famotidine 20 mg DAILY IV 03/13/25 10:00 03/14/25 09:35 20 MG Acetaminophen/ Hydrocodone Bitart 1 tab Q4HP PRN PO 03/12/25 15:45 03/13/25 18:54 1 TAB Morphine Sulfate 1 mg Q4HP PRN IV 03/12/25 16:15 Gabapentin 100 mg BID PO 03/12/25 22:00 03/14/25 09:35 100 MG Lorazepam 1 mg Q4HP PRN PO 03/12/25 16:30 03/12/25 17:34 1 MG Metoprolol Tartrate 12.5 mg BID PO 03/13/25 10:15 03/14/25 09:37 12.5 MG Laboratory Results Laboratory Tests 03/13/25 10:37 03/14/25 05:09 Chemistry Test 03/13/25 10:37 03/14/25 05:09 Magnesium Level 1.6 mg/dL (1.6-2.6) Calcium Level 8.7 mg/dL (8.7-10.4) Coagulation Test 03/13/25 10:37 D-Dimer, Quantitative < 0.19 mg/L FEU (0.0-0.49) Cardiac Markers Test 03/13/25 10:37 B-Type Natriuretic Peptide 565.98 pg/mL (0-100) Microbiology Microbiology Date/Time Source Procedure Growth Status 03/06/25 21:32 Buttock Gram Stain - Final Complete 03/06/25 21:32 Wound Culture - Final Klebsiella pneumoniae Complete Labs and/or images reviewed: Labs reviewed by me, Image(s) reviewed by me Assessment/Plan Assessment/Plan 80-year-old female presents for evaluation of shortness for breath. Patient endorses a three day history of worsening shortness for breath with associated substernal chest pressure. Denies cough or fever. No other acute complaints reported. Past Medical History CHF, hypertension, asthma, atrial fibrillation 03/09: Patient hospice revoked, here for heart failure exacerbation also has pulmonary hypertension. Severely volume overload we will continue Lasix 20 IV b.i.d.. We will start wound care and physical therapy. 03/10: Patient is still volume overload. We will follow him labs today which showed elevated bicarb significantly, hypokalemia significant. We will give potassium 40 mEq pill 3 times 2 hours apart. Repeat BNP in the evening. We will keep Lasix 20 IV b.i.d. as bicarb was rising. We will give acetazolamide 500 p.o. once and recheck BNP. Otherwise continue other present management medications. Continue diuresis. We will order wound care and PT today. 03/11: Patient will discuss code status with , currently we will keep full code. Urine output over 24 hours only 1.2 L, we will continue Aldactone current dose and increase Lasix to 40 IV b.i.d.. Continue nasal cannula oxygen maintain oxygen saturation 92-95. Continuing accurate I&Os,. Continue q.2h turns and Medihoney dressing change daily with wound cleansing. Continue PT therapy. 03/12: Patient is still severely edematous, moving lower extremities, PT is ordered. Apparently urine output is 1.4 L only from yesterday. We will increase Lasix 60 t.i.d.. We will get ABG as bicarb is I ruled out hypercarbia. If there is no hypercarbia we will give acetazolamide. 03/13: Labs suggestive of JULIANNA, we will hold further Lasix. On exam still we will volume overload attempt edema lower extremity +1 to +2. We got ABG gas showing no hypercarbia. Patient is in metabolic alkalosis from diuresis. Blood pressure low. We will give 250 bolus LR, hold off Lasix. Patient is more sleepy this a.m.. We will repeat CBC, ammonia, Mag phos, BNP,. We will get portable chest x-ray., Elevate legs. Hold blood pressure medications, except change Coreg to metoprolol tartrate 12.5 b.i.d... Patient is on oxygen 3 L home oxygen level. Decrease breath sounds at bases. - ammonia ok. tn neg. cxr looks clear. bnp mar 1100 to 500s. labs look good. bicarb high with met graciela. will give 1x iv 250 acetazolamide. otherwise continue 1.2L fluid rst intake and will hold iv lasix today 03/14: Patient is sleepy again this morning. Yesterday she had similar presentation in the a.m., by the p.m. she wakes up. We have already checked hypercarbia, ammonia, TSH. With our trial of diuresis patient develop JULIANNA. We gave acetazolamide yesterday which has improved patient is metabolic alkalosis. We are holding Lasix. Creatinine is increased from 1.1-1.2, we will give another 250 bolus fluids and repeat BMP for creatinine in afternoon. Discussed with daughter Aidan, as patient was too sleepy. If creatinine is improving we will discharge patient back to [facility] hospice agency. Patient needs to be referred to [place] wound care, continue Lasix 20 oral only once daily (prior was twice daily). Continue other medications per hospice. Patient will need following of renal function, defer to hospice agency. diagnosis: Acute on chronic decompensated, HFrEF, NYHA class III Mild CAD involving the RCA Severe tricuspid insufficiency Hypertension Hyperlipidemia Atrial fibrillation status post two direct current cardioversions, likely persistent (on Eliquis) Chronic kidney disease Pulmonary hypertension COPD on home O2 Asthma Severe hypokalemia History of tobacco use Morbidly obese, Class 3 plan: Tylenol, [place] for pain Albuterol for shortness for breath prn Lipitor 40 HS Coreg 3 b.i.d. Jardiance 10 Lovenox 80 q.12 Lasix 20 IV b.i.d. Lisinopril 10 daily 60 Aldactone 25 daily Tele Full code Plan discussed with: Patient My Orders Orders - TOMMY PERALES MD Procedure Category Date Status Time Chest Portable XY 03/13/25 Resulted 09:52 Metoprolol Tartrate PHA 03/13/25 In Process Tablet (Lopressor Ta 10:15 Basic Metabolic Panel LAB 03/14/25 Logged 12:00 Date of Service: Mar 14, 2025 Billing Provider: TOMMY PERALES MD Common Visit Codes: [id number] INP/OBS CARE(HIGH) TOMMY PERALES MD Mar 14, 2025 10:02
[2025-03-14 12:35] LABS: Carbon Dioxide 27 mmol/L (20-31)
[2025-03-14 12:36] LABS: Anion Gap 8 (5-15); Calcium 8.5 mg/dL (8.7-10.4); Chloride 98 mmol/L (98-107); Potassium 3.7 mmol/L (3.5-5.1); Sodium 133 mmol/L (136-145)
[2025-03-14 12:40] LABS: Blood Urea Nitrogen 21 mg/dL (9-23)
[2025-03-14 12:41] LABS: BUN/Creatinine Ratio 17.6 (10.0-20.0); Glucose 101 mg/dL (74-106)
[2025-03-14] MEDS ORDERED: CLINIMIX PER PHARMACY 0 ML IV SCH (15:45)
[2025-03-14 15:54] LABS: Potassium 3.8 mmol/L (3.5-5.1); Sodium 137 mmol/L (136-145)
[2025-03-14 15:55] LABS: Anion Gap 10 (5-15); Carbon Dioxide 30 mmol/L (20-31)
[2025-03-14 15:56] LABS: Calcium 8.9 mg/dL (8.7-10.4)
[2025-03-14 16:00] LABS: BUN/Creatinine Ratio 17.1 (10.0-20.0); Glucose 91 mg/dL (74-106)
[2025-03-14 16:02] LABS: Blood Urea Nitrogen 24 mg/dL (9-23); Chloride 97 mmol/L (98-107)
--- NOTE | 2025-03-14 16:21 | DVH ---
COMPUTERIZED TOMOGRAPHY OF THE HEAD WITHOUT CONTRAST REASON FOR STUDY: Altered level of consciousness COMPARISON: CT HEAD WITHOUT CONTRAST on DOS: 10/21/24, CT HEAD WITHOUT CONTRAST on DOS: 07/14/24, CT HEAD WITHOUT CONTRAST on DOS: 09/21/22 TECHNIQUE: Helical tomographic scans were obtained through the brain. 2-D coronal and sagittal reformatted images are provided. Radiation optimization: All CT scans at this facility use at least one of these dose optimization techniques: Automated exposure control mA and/or kV adjustment per patient size (includes targeted exams where dose is matched to clinical indication) or iterative reconstruction. RADIATION DOSE: CTDI: 56 mGy DLP: 959 mGy-cm FINDINGS: No suspicious intracranial hyperdensity to suggest acute blood. There is no mass effect nor midline shift. There is mild generalized volume loss with compensatory enlargement of the CSF spaces. There is no hydrocephalus. The suprasellar cistern is intact. There are scattered periventricular and deep white matter hypodensities that are most consistent with chronic microangiopathic changes. The calvarium is intact. The visualized mastoid air cells and paranasal sinuses are clear. There is mild focal right frontal scalp swelling. IMPRESSION: No acute intracranial abnormality. Mild generalized volume loss with chronic small vessel ischemic change.
[2025-03-14 16:28] LABS: Alanine Aminotransferase 12.0 U/L (7-40); Albumin 3.4 g/dL (3.2-4.8); Bilirubin, Total 0.9 mg/dL (0.2-1.0); Total Protein 6.4 g/dL (5.7-8.2)
[2025-03-14 16:31] LABS: Alkaline Phosphatase 144.0 U/L (46-116); Bilirubin, Direct 0.5 mg/dL (<0.3); Magnesium 1.4 mg/dL (1.6-2.6)
[2025-03-14] MEDS: MEROPENEM 1GM IVPB 50 ML IV ONE (17:10)
[2025-03-14] MEDS: DOXYCYCLINE 100MG/100ML 100 ML IV SCH (18:29)
[2025-03-14] MEDS: AMINO ACID INFUSION IN D10W 1,000 ML IV SCH (20:59)
[2025-03-14] MEDS: MEROPENEM 1GM IVPB 50 ML IV SCH (20:59)
[2025-03-14] MEDS ORDERED: DEXTROSE (50%) 50ML SYRG IV SCH (22:00)
[2025-03-15] MEDS: InsuLIN REG 1unit/0.01ml Soln (100units/ml) SC SCH
[2025-03-15] MEDS: ACCU-CHEK COMFORT CURVE STRIP VI SCH (00:24)
[2025-03-15 01:00] VITALS: BP 113/77; PULSE 87; RESP 12; TEMP 97; O2SAT 96
[2025-03-15 05:00] VITALS: BP 102/58; PULSE 100; RESP 14; TEMP 98; O2SAT 98
[2025-03-15 06:56] LABS: Anion Gap 9 (5-15); BUN/Creatinine Ratio 20.0 (10.0-20.0); Glucose 87 mg/dL (74-106); Sodium 138 mmol/L (136-145)
[2025-03-15 06:57] LABS: Bilirubin, Total 0.8 mg/dL (0.2-1.0)
[2025-03-15 07:02] LABS: Alanine Aminotransferase 9 U/L (7-40); Albumin 2.8 g/dL (3.2-4.8); Alkaline Phosphatase 121 U/L (46-116); Blood Urea Nitrogen 23 mg/dL (9-23); Calcium 8.3 mg/dL (8.7-10.4); Carbon Dioxide 33 mmol/L (20-31); Chloride 96 mmol/L (98-107); Magnesium 1.5 mg/dL (1.6-2.6); Potassium 3.3 mmol/L (3.5-5.1); Total Protein 5.3 g/dL (5.7-8.2)
[2025-03-15 08:00] VITALS: PULSE 113
[2025-03-15 08:58] VITALS: BP 91/67; PULSE 93; RESP 14; TEMP 98; O2SAT 92
[2025-03-15] MEDS: POTASSIUM EFFERVESENT TAB 25 MEQ PO ONE (11:00)
[2025-03-15 12:48] VITALS: BP 101/66; PULSE 116; RESP 18; TEMP 97.5; O2SAT 96
[2025-03-15] MEDS: MORPHINE SULFATE 4 MG/ML SYR/VIAL IV PRN (13:18)
[2025-03-15] MEDS: POTASSIUM CHL 20 Meq TABLET PO ONE (14:47)
--- NOTE | 2025-03-15 16:29 | DVHPNRES ---
Progress Note Date Seen: Mar 15, 2025 Resident Creating Document: MCKAYLA STANTON RESIDENT Has the PT tested + for MRSA If YES, has PT been informed?: No Medical Necessity Reason Pt with a Central, PICC or Fol: No Subjective Review of Systems Patient seen and examined at bedside. Patient is on home oxygen. Patient is currently on 4 L/min of oxygen through nasal cannula. Last chest x-ray showed cardiomegaly but otherwise bilateral lung monroe were grossly clear. CT scan of the head was grossly unremarkable as well. Echocardiogram showed LVEF of 50% patient is currently on enoxaparin 80 mg q.12 due to previous history of atrial fibrillation. Clinimix was discontinued at this time. We will also discontinue meropenem and doxycycline since there is no obvious source of infection at this time. We will start the patient on IV ceftriaxone cover for possible UTI. We will continue current medical management at this time. ROS Constitutional: Denies weight loss, fever and chills. HEENT: Denies changes in vision and hearing. Respiratory: Denies shortness of breath and cough Cardiovascular: Denies chest discomfort or palpitations GI: Denies abdominal pain, nausea, vomiting and diarrhea. : Denies dysuria and urinary frequency. Musculoskeletal: Denies myalgias and joint pain Skin: Denies rash and pruritus. Neurological: Denies dizziness, headache, vision or hearing problems Objective vital signs Vital Sign Date Time Temp Pulse Resp B/P (MAP) Pulse Ox O2 Delivery O2 Flow Rate FiO2 03/15/25 14:54 108 115/70 03/15/25 13:48 20 03/15/25 12:48 97.5 96 97.5 03/15/25 08:05 Nasal Cannula* 4 36 Total Intake and Output 03/14/25 03/14/25 03/15/25 15:00 23:00 07:00 Intake Total 250 ml 120 ml 0 ml Output Total 200 ml 450 ml Balance 250 ml -80 ml -450 ml medications Current Medications Medications Dose Ordered Sig/Leonard Route Start Time Stop Time Status Last Admin Dose Admin Nitroglycerin 0.4 mg Q5MINP PRN SL 03/06/25 20:15 03/06/25 20:25 0.4 MG Sodium Chloride 1 spr QID EACHNOSTRI 03/06/25 23:00 03/15/25 12:27 1 SPR Empaglifozin 10 mg DAILY PO 03/07/25 10:00 03/14/25 09:35 10 MG Albuterol 2.5 mg Q6HPRN PRN NEB 03/06/25 23:00 Cancel Ondansetron HCl 4 mg Q4HP PRN IV 03/06/25 23:15 Hold Acetaminophen 650 mg Q6HP PRN PO 03/06/25 23:15 Atorvastatin Calcium 40 mg HS PO 03/07/25 22:00 03/13/25 21:55 40 MG Enoxaparin Sodium 80 mg Q12HR SC 03/09/25 22:00 03/15/25 11:03 80 MG Spironolactone 25 mg DAILY PO 03/10/25 10:00 03/14/25 09:36 25 MG Famotidine 20 mg DAILY IV 03/13/25 10:00 03/15/25 10:59 20 MG Acetaminophen/ Hydrocodone Bitart 1 tab Q4HP PRN PO 03/12/25 15:45 03/15/25 11:10 1 TAB Morphine Sulfate 1 mg Q4HP PRN IV 03/12/25 16:15 03/15/25 13:18 1 MG Gabapentin 100 mg BID PO 03/12/25 22:00 03/14/25 10:00 100 MG Lorazepam 1 mg Q4HP PRN PO 03/12/25 16:30 03/12/25 17:34 1 MG Metoprolol Tartrate 12.5 mg BID PO 03/13/25 10:15 03/15/25 13:54 12.5 MG Meropenem 50 ml @ 17 mls/hr Q8HR IV 03/14/25 22:00 03/15/25 23:59 03/15/25 13:16 17 MLS/HR Doxycycline Hyclate 100 ml @ 50 mls/hr Q12H IV 03/14/25 18:00 03/15/25 06:28 50 MLS/HR Meropenem 50 ml @ 17 mls/hr Q12HR IV 03/16/25 10:00 Examination Physical Examination General: Patient alert and oriented in person, place and time. Patient following commands. HEENT: Normocephalic, atraumatic, moist mucous membranes Respiratory/pulmonary: There is very mild crackles on bilateral lung [place]. No wheezes at this time. Cardiovascular: Normal heart sounds S1 and S2 with no associated murmurs Abdomen: Abdomen nondistended, there is no pain to palpation in any of the abdominal quadrants, no palpable masses. Extremities: There is mild bilateral lower extremity swelling plus Skin: No rashes or pruritus, there is no sacral edema present at this time. Neurological: Intact cranial nerves with no focal neurologic deficits laboratory and microbiology Laboratory Tests 03/15/25 05:20 03/13/25 10:37 Test 03/15/25 05:20 Range/Units Serum Glucose 87 74-106 mg/dL Microbiology Date/Time Source Procedure Growth Status 03/14/25 15:30 Blood Blood Culture - Preliminary NO GROWTH AFTER 24 HOURS OF INCUBATION. Resulted 03/06/25 21:32 Buttock Gram Stain - Final Complete 03/06/25 21:32 Wound Culture - Final Klebsiella pneumoniae Complete Labs and/or images reviewed: Labs reviewed by me, Image(s) reviewed by me Problem List/Assessment/Plan Problem List/Assessment/Plan Assessment/plan Acute hypoxic respiratory failure likely due to acute on chronic systolic heart failure HFpEF 50% Status post coronary angiogram with left heart catheterization on 09/29/2024 (mild CAD to the RCA) Atrial fibrillation status post two direct current cardioversions (on therapeutic Lovenox) Hypertensive heart disease with the acute on chronic systolic heart failure Klebsiella pneumoniae sacral wound infection Dyslipidemia COPD on home oxygen Pulmonary hypertension Severe hypokalemia History of asthma Morbidly obese Plan -stopped IV meropenem and doxycycline. We will start IV ceftriaxone. No clear source of infection, chest x-ray is grossly clear no evidence of consolidations, UA grossly unremarkable -discontinue Clinimix -continue spironolactone 25 mg daily, empagliflozin 10 mg daily, atorvastatin 40 mg daily -continue therapeutic enoxaparin 80 mg q.12 for atrial fibrillation -restart metoprolol tartrate 12.5 mg b.i.d. for accomplishing rate control. Currently attempting rhythm control -repleted potassium, monitor potassium closely -monitor magnesium -continue current medical therapy -continue wound care Goals of care discussed with the patient at bedside for 20 minutes; undecided Plan discussed with Dr. Tejada Plan discussed with: Patient, Other (Nurse) Dietary Evaluation Review Comments: Nutrition Recommendation: 1) Anatoliy 1 pk BID, MVI w/ minerals 1 tab daily, VitC 500mg BID, Zinc sulfate 220mg BID x 10 days 2) Monitor PO intake, lab values, weight trend, and I/O Expected Outcomes/Goals: Wound to improve FU 3-5 days Date of Service: Mar 15, 2025 Billing Provider: AGUILAR TEJADA MD Common Visit Codes: [id number] INP/OBS CARE(HIGH) Secondary Visit Codes: [id number] CARE PLAN 30 MINUTES (20 minutes) MCKAYLA STANTON Mar 15, 2025 16:29 AGUILAR TEJADA MD Mar 18, 2025 14:02
[2025-03-15 20:00] VITALS: PULSE 101; RESP 16; O2SAT 99
[2025-03-16] VITALS (9 sets, daily range): BP systolic 92–147; BP diastolic 54–98; PULSE 64–115; RESP 15–18; TEMP 96.7–97.8; O2SAT 94–99
[2025-03-16 07:42] LABS: Anion Gap 9 (5-15); Carbon Dioxide 31 mmol/L (20-31); Potassium 3.8 mmol/L (3.5-5.1); Sodium 138 mmol/L (136-145)
[2025-03-16 07:43] LABS: Calcium 8.8 mg/dL (8.7-10.4)
[2025-03-16 07:48] LABS: BUN/Creatinine Ratio 20.7 (10.0-20.0)
[2025-03-16 07:49] LABS: Blood Urea Nitrogen 24 mg/dL (9-23); Chloride 98 mmol/L (98-107); Glucose 72 mg/dL (74-106)
[2025-03-16] MEDS ORDERED: MEROPENEM 1GM IVPB 50 ML IV SCH (10:00)
[2025-03-16] MEDS: NALOXONE HCL 0.4 MG/ML VIAL IV ONE (10:38)
--- NOTE | 2025-03-16 13:59 | DVHPNRES ---
Progress Note Date Seen: Mar 16, 2025 Resident Creating Document: MCKAYLA STANTON RESIDENT Has the PT tested + for MRSA If YES, has PT been informed?: No Medical Necessity Reason Pt with a Central, PICC or Fol: Yes The following are medically ne: Hutchinson Catheter Subjective Review of Systems Patient seen and examined at bedside. This morning in the a.m., the patient was slightly sleepy, confused and not answering to questions as the day before. It seems that the patient was taking her own extended release morphine at bedside for which one dose of naltrexone was gave and the patient became responsive and back to her baseline. We took out all her medications from bedside and send it up to the pharmacy. Patient is currently on 4 L of oxygen through nasal cannula. We encouraged the patient to start physical therapy. The came at bedside, we explained the situation, current plan of care and we explained that we will resume hospice with social media marketing specialist. Patient still not back at her baseline respiratory landis. Patient still minimal volume overload so we will continue current medical management at this time. ROS Constitutional: Denies weight loss, fever and chills. HEENT: Denies changes in vision and hearing. Respiratory: Still reports mild to moderate shortness of breath. Denies cough Cardiovascular: Denies chest discomfort or palpitations GI: Denies abdominal pain, nausea, vomiting and diarrhea. : Denies dysuria and urinary frequency. Musculoskeletal: Denies myalgias and joint pain Skin: Denies rash and pruritus. Neurological: Denies dizziness, headache, vision or hearing problems Objective vital signs Vital Sign Date Time Temp Pulse Resp B/P (MAP) Pulse Ox O2 Delivery O2 Flow Rate FiO2 03/16/25 11:49 115 18 128/89 03/16/25 09:00 96.7 94 96.7 03/15/25 20:00 Nasal Cannula* 4 36 Total Intake and Output 03/15/25 03/15/25 03/16/25 15:00 23:00 07:00 Intake Total 510 ml 210 ml Output Total 300 ml 50 ml Balance 210 ml 160 ml medications Current Medications Medications Dose Ordered Sig/Leonard Route Start Time Stop Time Status Last Admin Dose Admin Nitroglycerin 0.4 mg Q5MINP PRN SL 03/06/25 20:15 03/06/25 20:25 0.4 MG Sodium Chloride 1 spr QID EACHNOSTRI 03/06/25 23:00 03/15/25 21:32 1 SPR Empaglifozin 10 mg DAILY PO 03/07/25 10:00 03/16/25 10:38 10 MG Albuterol 2.5 mg Q6HPRN PRN NEB 03/06/25 23:00 Cancel Ondansetron HCl 4 mg Q4HP PRN IV 03/06/25 23:15 Hold Acetaminophen 650 mg Q6HP PRN PO 03/06/25 23:15 Atorvastatin Calcium 40 mg HS PO 03/07/25 22:00 03/15/25 21:25 40 MG Enoxaparin Sodium 80 mg Q12HR SC 03/09/25 22:00 03/16/25 10:34 80 MG Spironolactone 25 mg DAILY PO 03/10/25 10:00 03/16/25 10:34 25 MG Famotidine 20 mg DAILY IV 03/13/25 10:00 03/16/25 10:34 20 MG Acetaminophen/ Hydrocodone Bitart 1 tab Q4HP PRN PO 03/12/25 15:45 03/16/25 00:16 1 TAB Morphine Sulfate 1 mg Q4HP PRN IV 03/12/25 16:15 03/16/25 11:08 1 MG Gabapentin 100 mg BID PO 03/12/25 22:00 03/16/25 11:23 100 MG Lorazepam 1 mg Q4HP PRN PO 03/12/25 16:30 03/12/25 17:34 1 MG Metoprolol Tartrate 12.5 mg BID PO 03/13/25 10:15 03/16/25 10:38 12.5 MG Ceftriaxone Sodium 50 ml @ 100 mls/hr DAILY@09 IV 03/16/25 09:00 03/16/25 10:34 100 MLS/HR Examination Physical Examination General: Patient alert and oriented in person, place and time. Patient following commands. HEENT: Normocephalic, atraumatic, moist mucous membranes Respiratory/pulmonary: There is very mild crackles on bilateral lung monroe. No wheezes at this time. Cardiovascular: Normal heart sounds S1 and S2 with no associated murmurs Abdomen: Abdomen nondistended, there is no pain to palpation in any of the abdominal quadrants, no palpable masses. Extremities: There is mild bilateral lower extremity swelling plus Skin: No rashes or pruritus, there is no sacral edema present at this time. Neurological: Intact cranial nerves with no focal neurologic deficits laboratory and microbiology Laboratory Tests 03/16/25 05:55 03/13/25 10:37 Test 03/16/25 05:55 Range/Units Serum Glucose 72 L 74-106 mg/dL Microbiology Date/Time Source Procedure Growth Status 03/14/25 15:30 Blood Blood Culture - Preliminary NO GROWTH AFTER 24 HOURS OF INCUBATION. Resulted 03/06/25 21:32 Buttock Gram Stain - Final Complete 03/06/25 21:32 Wound Culture - Final Klebsiella pneumoniae Complete Labs and/or images reviewed: Labs reviewed by me, Image(s) reviewed by me Problem List/Assessment/Plan Problem List/Assessment/Plan Assessment/plan Acute hypoxic respiratory failure likely due to acute on chronic systolic heart failure HFpEF 50% Status post coronary angiogram with left heart catheterization on 09/29/2024 (mild CAD to the RCA) Atrial fibrillation status post two direct current cardioversions (on therapeutic Lovenox) Hypertensive heart disease with acute on chronic systolic heart failure Klebsiella pneumoniae decubitus wound infection; present on admission Dyslipidemia COPD on home oxygen Pulmonary hypertension Severe hypokalemia History of asthma Morbidly obese Plan -patient was sleepy, drowsy and slightly confused this morning, patient was taking metformin extended release at bedside. We sent all medications to pharmacy. We gave one dose of naloxone and patient became awake alert and oriented. -continue IV ceftriaxone. No clear source of infection, chest x-ray is grossly clear no evidence of consolidations, UA grossly unremarkable -continue spironolactone 25 mg daily, empagliflozin 10 mg daily, atorvastatin 40 mg daily -continue therapeutic enoxaparin 80 mg q.12 for atrial fibrillation -restart metoprolol tartrate 12.5 mg b.i.d. for accomplishing rate control. Currently attempting rhythm control -repleted potassium, monitor potassium closely -monitor magnesium -continue current medical therapy Plan discussed with Dr. Tejeda Plan discussed with: Patient, Other () My Orders My Orders Orders - MCKAYLA STANTNO Procedure Category Date Status Time Ceftriaxone 1gm/50ml PHA 03/16/25 In Process (Rocephiranulfo) 09:00 Dietary Evaluation Review Comments: Nutrition Recommendation: 1) Anatoliy 1 pk BID, MVI w/ minerals 1 tab daily, VitC 500mg BID, Zinc sulfate 220mg BID x 10 days 2) Monitor PO intake, lab values, weight trend, and I/O Expected Outcomes/Goals: Wound to improve FU 3-5 days Date of Service: Mar 16, 2025 Billing Provider: MCKAYLA STANTON Common Visit Codes: [id number] CARE 30-74 MIN MCKAYLA STANTON Mar 16, 2025 13:59 AGUILAR TEJEDA MD Mar 18, 2025 14:03
[2025-03-17] VITALS (8 sets, daily range): BP systolic 99–112; BP diastolic 54–88; PULSE 62–102; RESP 16–18; TEMP 97–97.5; O2SAT 90–99
--- NOTE | 2025-03-17 12:09 | DVHPN2 ---
Subjective Complaining of buttocks pain due to the wounds Reviewed: Care Plan, H&P, Labs, Medications, Previous Orders, Radiology, Other (Consultation) Changes from previous H/P or p: Changes Objective Vitals Vital Signs Date Time Temp Pulse Resp B/P (MAP) Pulse Ox O2 Delivery O2 Flow Rate FiO2 03/17/25 10:47 62 108/77 03/17/25 09:00 97.4 16 96 97.4 03/16/25 20:00 Nasal Cannula* 3 32 Intake/Output Intake and Output 03/17/25 07:00 Intake Total 200 ml Output Total 250 ml Balance -50 ml Intake Oral 150 ml IV Total 50 ml Output Urine Total 250 ml # Voids 1 General Appearance: Alert, Oriented X3, Cooperative, No acute distress HEENT: Atraumatic Lungs: Other (Decreased air entry bilaterally with a scattered crackles) Cardiovascular: Other (Irregularly irregular) Abdomen: Normal bowel sounds, Soft, No tenderness Genitourinary: Other (Hutchinson's in place) Neuro: Normal speech, Cranial nerves 3-12 NL Skin: Other (Please kindly refer to wound care photos for details; all lesions were present on admission) Psych/Mental Status: Mental status NL, Mood NL Medications Current Medications Medications Dose Ordered Sig/Leonard Route Start Time Stop Time Status Last Admin Dose Admin Nitroglycerin 0.4 mg Q5MINP PRN SL 03/06/25 20:15 03/06/25 20:25 0.4 MG Sodium Chloride 1 spr QID EACHNOSTRI 03/06/25 23:00 03/16/25 22:03 1 SPR Empaglifozin 10 mg DAILY PO 03/07/25 10:00 03/17/25 10:45 10 MG Albuterol 2.5 mg Q6HPRN PRN NEB 03/06/25 23:00 Cancel Ondansetron HCl 4 mg Q4HP PRN IV 03/06/25 23:15 Hold Acetaminophen 650 mg Q6HP PRN PO 03/06/25 23:15 Atorvastatin Calcium 40 mg HS PO 03/07/25 22:00 03/16/25 22:03 40 MG Enoxaparin Sodium 80 mg Q12HR SC 03/09/25 22:00 03/17/25 10:45 80 MG Spironolactone 25 mg DAILY PO 03/10/25 10:00 03/17/25 10:46 25 MG Famotidine 20 mg DAILY IV 03/13/25 10:00 03/17/25 10:45 20 MG Acetaminophen/ Hydrocodone Bitart 1 tab Q4HP PRN PO 03/12/25 15:45 03/16/25 15:18 1 TAB Morphine Sulfate 1 mg Q4HP PRN IV 03/12/25 16:15 03/16/25 11:08 1 MG Gabapentin 100 mg BID PO 03/12/25 22:00 03/17/25 10:45 100 MG Lorazepam 1 mg Q4HP PRN PO 03/12/25 16:30 03/12/25 17:34 1 MG Metoprolol Tartrate 12.5 mg BID PO 03/13/25 10:15 03/17/25 10:47 12.5 MG Ceftriaxone Sodium 50 ml @ 100 mls/hr DAILY@09 IV 03/16/25 09:00 03/17/25 10:45 100 MLS/HR Laboratory Results Laboratory Tests 03/13/25 10:37 03/16/25 05:55 Microbiology Microbiology Date/Time Source Procedure Growth Status 03/14/25 15:30 Blood Blood Culture - Preliminary NO GROWTH AFTER 48 HOURS OF INCUBATION. Resulted 03/06/25 21:32 Buttock Gram Stain - Final Complete 03/06/25 21:32 Wound Culture - Final Klebsiella pneumoniae Complete Labs and/or images reviewed: Labs reviewed by me, Image(s) reviewed by me Assessment/Plan Assessment/Plan Covering Dr. Rodas: Acute on chronic hypoxic respiratory failure likely due to acute on chronic systolic heart failure CAD status post coronary angiogram with left heart catheterization on 09/29/2024 (mild CAD of RCA) Atrial fibrillation status post two direct current cardioversions (on therapeutic Lovenox) Hypertensive kidney and heart disease with the acute on chronic systolic heart failure versus suspected chronic kidney disease Klebsiella pneumoniae wounds infection; all wounds were present on admission Pain due to rule decubitus wounds; present on admission Physical deconditioning Dyslipidemia COPD on home oxygen Pulmonary hypertension Severe hypokalemia History of asthma Morbidly obese Telemetry Continue IV antibiotics Ordered reassessment for wounds by wound care Reviewed lab work including cultures Reviewed the imaging studies The patient was on home hospice; due to lack of help at home she requested re- evaluation by PT for possible SNF discharge Ordered reassessment for placement by PT and clinical social work therapist Counseled the patient importance of adopting healthy lifestyle with diet and exercise in order to lose weight Continue oxygen therapy as needed Continue pain management as indicated Continue therapeutic enoxaparin Continue GI prophylaxis Continue monitoring Late Entry. This medical document was created using an electronic medical record system with computerized dictation system. Although this document has been carefully reviewed, there might still be some phonetic and typographical errors. These areas are purely typographical due to imperfections of the software programs, and do not reflect any compromise in the patient's medical care. Plan discussed with: Patient, Other (Nurse) Date of Service: Mar 17, 2025 Billing Provider: AGUILAR TEJEDA MD Common Visit Codes: [id number] INP/OBS CARE(HIGH) AGUILAR TEJEDA MD Mar 17, 2025 12:09
[2025-03-18] VITALS (8 sets, daily range): BP systolic 93–118; BP diastolic 52–80; PULSE 61–115; RESP 15–18; TEMP 97–98.4; O2SAT 95–99
--- NOTE | 2025-03-18 14:13 | DVHPN2 ---
Subjective Worsening buttocks pain due to the wounds Reviewed: Care Plan, H&P, Labs, Medications, Previous Orders, Radiology, Other (Consultation) Changes from previous H/P or p: Changes Objective Vitals Vital Signs Date Time Temp Pulse Resp B/P (MAP) Pulse Ox O2 Delivery O2 Flow Rate FiO2 03/18/25 13:00 97.2 61 18 93/52 (66) 95 97.2 03/17/25 20:00 Nasal Cannula* 3 32 Intake/Output Intake and Output 03/18/25 07:00 Intake Total 820 ml Output Total 602 ml Balance 218 ml Intake Oral 820 ml Output Urine Total 600 ml Stool Total 2 ml # Bowel Movements 1 General Appearance: Alert, Oriented X3, Cooperative, No acute distress HEENT: Atraumatic Lungs: Other (Decreased air entry bilaterally with a scattered crackles) Cardiovascular: Other (Irregularly irregular) Abdomen: Normal bowel sounds, Soft, No tenderness Genitourinary: Other (Hutchinson's in place) Neuro: Normal speech, Cranial nerves 3-12 NL Skin: Other (Please kindly refer to wound care photos for details; all lesions were present on admission) Psych/Mental Status: Mental status NL, Mood NL Medications Current Medications Medications Dose Ordered Sig/Leonard Route Start Time Stop Time Status Last Admin Dose Admin Nitroglycerin 0.4 mg Q5MINP PRN SL 03/06/25 20:15 03/06/25 20:25 0.4 MG Sodium Chloride 1 spr QID EACHNOSTRI 03/06/25 23:00 03/18/25 05:23 1 SPR Empaglifozin 10 mg DAILY PO 03/07/25 10:00 03/18/25 11:11 10 MG Albuterol 2.5 mg Q6HPRN PRN NEB 03/06/25 23:00 Cancel Ondansetron HCl 4 mg Q4HP PRN IV 03/06/25 23:15 Hold Acetaminophen 650 mg Q6HP PRN PO 03/06/25 23:15 Atorvastatin Calcium 40 mg HS PO 03/07/25 22:00 03/17/25 21:37 40 MG Enoxaparin Sodium 80 mg Q12HR SC 03/09/25 22:00 03/18/25 11:11 80 MG Spironolactone 25 mg DAILY PO 03/10/25 10:00 03/18/25 11:12 25 MG Famotidine 20 mg DAILY IV 03/13/25 10:00 03/18/25 11:10 20 MG Acetaminophen/ Hydrocodone Bitart 1 tab Q4HP PRN PO 03/12/25 15:45 03/18/25 08:32 1 TAB Morphine Sulfate 1 mg Q4HP PRN IV 03/12/25 16:15 03/16/25 11:08 1 MG Gabapentin 100 mg BID PO 03/12/25 22:00 03/18/25 11:11 100 MG Lorazepam 1 mg Q4HP PRN PO 03/12/25 16:30 03/12/25 17:34 1 MG Metoprolol Tartrate 12.5 mg BID PO 03/13/25 10:15 03/18/25 11:12 12.5 MG Ceftriaxone Sodium 50 ml @ 100 mls/hr DAILY@09 IV 03/16/25 09:00 03/18/25 11:10 100 MLS/HR Laboratory Results Laboratory Tests 03/13/25 10:37 03/16/25 05:55 Microbiology Microbiology Date/Time Source Procedure Growth Status 03/14/25 15:30 Blood Blood Culture - Preliminary NO GROWTH AFTER 72 HOURS OF INCUBATION. Resulted 03/06/25 21:32 Buttock Gram Stain - Final Complete 03/06/25 21:32 Wound Culture - Final Klebsiella pneumoniae Complete Labs and/or images reviewed: Labs reviewed by me, Image(s) reviewed by me Assessment/Plan Assessment/Plan Covering Dr. Rodas: Acute toxic encephalopathy due to opioid overdose; resolved after treatment with IV naloxone Acute on chronic hypoxic respiratory failure likely due to acute on chronic systolic heart failure CAD status post coronary angiogram with left heart catheterization on 09/29/2024 (mild CAD of RCA) Atrial fibrillation status post two direct current cardioversions (on therapeutic Lovenox) Hypertensive kidney and heart disease with the acute on chronic systolic heart failure versus suspected chronic kidney disease Suspected sepsis due to Klebsiella pneumoniae wounds infection; all wounds were present on admission Klebsiella pneumoniae wounds infection; all wounds were present on admission Pain due to rule decubitus wounds; present on admission Physical deconditioning Dyslipidemia COPD on home oxygen Pulmonary hypertension Severe hypokalemia History of asthma Morbidly obese Telemetry Continue IV antibiotics Ordered reassessment for wounds by wound care Reviewed lab work including cultures Reviewed the imaging studies The patient was on home hospice; due to lack of help at home, she requested re- evaluation by PT for possible SNF discharge Ordered reassessment for placement by PT and social media content manager; communication order was placed to ensure reassessment Counseled the patient importance of adopting healthy lifestyle with diet and exercise in order to lose weight Continue oxygen therapy as needed Continue pain management as indicated Home opioids were sent to pharmacy Continue therapeutic enoxaparin Continue GI prophylaxis Continue monitoring Late Entry. This medical document was created using an electronic medical record system with computerized dictation system. Although this document has been carefully reviewed, there might still be some phonetic and typographical errors. These areas are purely typographical due to imperfections of the software programs, and do not reflect any compromise in the patient's medical care. Plan discussed with: Patient, Other (Nurse) My Orders Orders - AGUILAR TEJEDA MD Procedure Category Date Status Time Communication Order ORDERS 03/18/25 Transmitted 12:21 Complete Blood Count LAB 03/19/25 Verified 04:00 Comprehensive LAB 03/19/25 Verified Metabolic Panel 04:00 Date of Service: Mar 18, 2025 Billing Provider: AGUILAR TEJEDA MD Common Visit Codes: [id number] INP/OBS CARE(HIGH) AGUILAR TEJEDA MD Mar 18, 2025 14:13
[2025-03-18] MEDS: ACETAMINOPHEN 325 MG TAB PO PRN (18:50)
[2025-03-18 19:34] LABS: Hematocrit 42.6 % (36.0-46.0); Hemoglobin 13.8 g/dL (12.2-16.2); Mean Corpuscular Hemoglobin 27.4 pg (28.0-32.0); Mean Corpuscular Volume 84.5 fL (80.0-100.0); Nucleated Red Blood Cells % 0.1 %
[2025-03-19] VITALS (8 sets, daily range): BP systolic 107–124; BP diastolic 62–87; PULSE 72–112; RESP 16–18; TEMP 97.3–98.1; O2SAT 94–100
[2025-03-19 06:33] LABS: Hematocrit 42.6 % (36.0-46.0); Hemoglobin 13.7 g/dL (12.2-16.2); Mean Corpuscular Hemoglobin 27.2 pg (28.0-32.0); Mean Corpuscular Volume 84.4 fL (80.0-100.0); Nucleated Red Blood Cells % 0.2 %
[2025-03-19 06:55] LABS: Alanine Aminotransferase 18 U/L (7-40); Anion Gap 12 (5-15); BUN/Creatinine Ratio 19.4 (10.0-20.0); Blood Urea Nitrogen 21 mg/dL (9-23); Calcium 8.8 mg/dL (8.7-10.4); Carbon Dioxide 27 mmol/L (20-31); Glucose 74 mg/dL (74-106); Potassium 3.6 mmol/L (3.5-5.1); Total Protein 5.8 g/dL (5.7-8.2)
[2025-03-19 06:56] LABS: Bilirubin, Total 0.7 mg/dL (0.2-1.0)
[2025-03-19 07:09] LABS: Albumin 3.1 g/dL (3.2-4.8); Alkaline Phosphatase 130 U/L (46-116); Chloride 96 mmol/L (98-107); Sodium 135 mmol/L (136-145)
--- NOTE | 2025-03-19 13:46 | DVHPN2 ---
Reviewed: Care Plan, H&P, Labs, Medications, Previous Orders, Radiology, Other (Consultation) Changes from previous H/P or p: No Changes General: Per HPI Objective Vitals Vital Signs Date Time Temp Pulse Resp B/P (MAP) Pulse Ox O2 Delivery O2 Flow Rate FiO2 03/19/25 11:04 73 16 108/87 03/19/25 09:00 97.8 97 97.8 03/19/25 08:15 Nasal Cannula* 3 32 Intake/Output Intake and Output 03/19/25 07:00 Intake Total 640 ml Output Total 400 ml Balance 240 ml Intake Oral 640 ml Output Urine Total 400 ml Exam GEN: Healthy appearing, well-developed, NAD. On oxygen nasal cannula 2 L HEENT: NC/AT; MMM. CV: Irregularly irregular. No murmurs LUNGS: CTAB, no w/r/c. Significant rales up to middle lungs bilaterally ABD: Soft, NT/ND, NBS, no masses or organomegaly. EXT: skin Warm, well perfused. no rashes. Pitting edema up to shins bilaterally 2 to 3+ NEURO: Ambulating with no limitations. No focal deficits. General Appearance: Alert, Oriented X3, Cooperative, No acute distress HEENT: Atraumatic Lungs: Other (Decreased air entry bilaterally with a scattered crackles) Cardiovascular: Other (Irregularly irregular) Abdomen: Normal bowel sounds, Soft, No tenderness Genitourinary: Other (Swartz's in place) Neuro: Normal speech, Cranial nerves 3-12 NL Skin: Other (Please kindly refer to wound care photos for details; all lesions were present on admission) Psych/Mental Status: Mental status NL, Mood NL Medications Current Medications Medications Dose Ordered Sig/Leonard Route Start Time Stop Time Status Last Admin Dose Admin Nitroglycerin 0.4 mg Q5MINP PRN SL 03/06/25 20:15 03/06/25 20:25 0.4 MG Sodium Chloride 1 spr QID EACHNOSTRI 03/06/25 23:00 03/19/25 11:40 1 SPR Empaglifozin 10 mg DAILY PO 03/07/25 10:00 03/19/25 09:18 10 MG Albuterol 2.5 mg Q6HPRN PRN NEB 03/06/25 23:00 Cancel Ondansetron HCl 4 mg Q4HP PRN IV 03/06/25 23:15 Hold Acetaminophen 650 mg Q6HP PRN PO 03/06/25 23:15 03/18/25 18:50 650 MG Atorvastatin Calcium 40 mg HS PO 03/07/25 22:00 03/18/25 22:13 40 MG Enoxaparin Sodium 80 mg Q12HR SC 03/09/25 22:00 03/19/25 09:17 80 MG Spironolactone 25 mg DAILY PO 03/10/25 10:00 03/19/25 09:18 25 MG Famotidine 20 mg DAILY IV 03/13/25 10:00 03/19/25 09:18 20 MG Acetaminophen/ Hydrocodone Bitart 1 tab Q4HP PRN PO 03/12/25 15:45 03/18/25 22:15 1 TAB Morphine Sulfate 1 mg Q4HP PRN IV 03/12/25 16:15 03/19/25 11:04 1 MG Gabapentin 100 mg BID PO 03/12/25 22:00 03/19/25 09:18 100 MG Lorazepam 1 mg Q4HP PRN PO 03/12/25 16:30 03/12/25 17:34 1 MG Metoprolol Tartrate 12.5 mg BID PO 03/13/25 10:15 03/19/25 09:18 12.5 MG Ceftriaxone Sodium 50 ml @ 100 mls/hr DAILY@09 IV 03/16/25 09:00 03/19/25 09:17 100 MLS/HR Laboratory Results Laboratory Tests 03/19/25 05:58 Chemistry Test 03/19/25 05:58 Albumin 3.1 g/dL (3.2-4.8) L Calcium Level 8.8 mg/dL (8.7-10.4) Total Protein 5.8 g/dL (5.7-8.2) LFT Test 03/19/25 05:58 Alanine Aminotransferase (ALT) 18 U/L (7-40) Alkaline Phosphatase 130 U/L (46-116) H Aspartate Amino Transferase (AST) 29 U/L (13-40) Total Bilirubin 0.7 mg/dL (0.2-1.0) Microbiology Microbiology Date/Time Source Procedure Growth Status 03/14/25 15:30 Blood Blood Culture - Preliminary NO GROWTH AFTER 72 HOURS OF INCUBATION. Resulted 03/06/25 21:32 Buttock Gram Stain - Final Complete 03/06/25 21:32 Wound Culture - Final Klebsiella pneumoniae Complete Labs and/or images reviewed: Labs reviewed by me, Image(s) reviewed by me Assessment/Plan Assessment/Plan 80-year-old female presents for evaluation of shortness for breath. Patient endorses a three day history of worsening shortness for breath with associated substernal chest pressure. Denies cough or fever. No other acute complaints reported. Past Medical History CHF, hypertension, asthma, atrial fibrillation 03/09: Patient hospice revoked, here for heart failure exacerbation also has pulmonary hypertension. Severely volume overload we will continue Lasix 20 IV b.i.d.. We will start wound care and physical therapy. 03/10: Patient is still volume overload. We will follow him labs today which showed elevated bicarb significantly, hypokalemia significant. We will give potassium 40 mEq pill 3 times 2 hours apart. Repeat BNP in the evening. We will keep Lasix 20 IV b.i.d. as bicarb was rising. We will give acetazolamide 500 p.o. once and recheck BNP. Otherwise continue other present management medications. Continue diuresis. We will order wound care and PT today. 03/11: Patient will discuss code status with , currently we will keep full code. Urine output over 24 hours only 1.2 L, we will continue Aldactone current dose and increase Lasix to 40 IV b.i.d.. Continue nasal cannula oxygen maintain oxygen saturation 92-95. Continuing accurate I&Os,. Continue q.2h turns and Medihoney dressing change daily with wound cleansing. Continue PT therapy. 03/12: Patient is still severely edematous, moving lower extremities, PT is ordered. Apparently urine output is 1.4 L only from yesterday. We will increase Lasix 60 t.i.d.. We will get ABG as bicarb is I ruled out hypercarbia. If there is no hypercarbia we will give acetazolamide. 03/13: Labs suggestive of JULIANNA, we will hold further Lasix. On exam still we will volume overload attempt edema lower extremity +1 to +2. We got ABG gas showing no hypercarbia. Patient is in metabolic alkalosis from diuresis. Blood pressure low. We will give 250 bolus LR, hold off Lasix. Patient is more sleepy this a.m.. We will repeat CBC, ammonia, Mag phos, BNP,. We will get portable chest x-ray., Elevate legs. Hold blood pressure medications, except change Coreg to metoprolol tartrate 12.5 b.i.d... Patient is on oxygen 3 L home oxygen level. Decrease breath sounds at bases. - ammonia ok. tn neg. cxr looks clear. bnp mar 1100 to 500s. labs look good. bicarb high with met graciela. will give 1x iv 250 acetazolamide. otherwise continue 1.2L fluid rst intake and will hold iv lasix today 03/14: Patient is sleepy again this morning. Yesterday she had similar presentation in the a.m., by the p.m. she wakes up. We have already checked hypercarbia, ammonia, TSH. With our trial of diuresis patient develop JULIANNA. We gave acetazolamide yesterday which has improved patient is metabolic alkalosis. We are holding Lasix. Creatinine is increased from 1.1-1.2, we will give another 250 bolus fluids and repeat BMP for creatinine in afternoon. Discussed with daughter Aidan, as patient was too sleepy. If creatinine is improving we will discharge patient back to [facility]. Patient needs to be referred to [place] wound care, continue Lasix 20 oral only once daily (prior was twice daily). Continue other medications per hospice. Patient will need following of renal function, defer to hospice agency. 03/19- apparently opiate overdosing caused ALOC on 03/14, s/p naloxone. patient looks better today. discussed disposition and patient wants to try SNF, can also do wound care there. unable to diurese as paatient has advanced pulm HTN. needs swartz change still. tolerating po. will finisih abx in snf, bactrim 7 days. diagnosis: Acute on chronic hypoxic respiratory failure likely due to acute on chronic systolic heart failure Suspected sepsis due to Klebsiella pneumoniae wounds infection; all wounds were present on admission CAD status post coronary angiogram with left heart catheterization on 09/29/2024 (mild CAD of RCA) Acute toxic encephalopathy due to opioid overdose; resolved after treatment with IV naloxone Atrial fibrillation status post two direct current cardioversions (on Eliquis) Pain due to rule decubitus wounds; POA Physical deconditioning HTN heart disease with LVH Chronic kidney disease Hypertension Hyperlipidemia Severe tricuspid insufficiency Pulmonary hypertension COPD on home O2 Asthma Severe hypokalemia History of tobacco use Morbidly obese, Class 3 plan: Tylenol, Welch for pain Albuterol for shortness for breath prn Lipitor 40 HS Coreg 3 b.i.d. Jardiance 10 Lovenox 80 q.12 Lasix 20 IV b.i.d. Lisinopril 10 daily 60 Aldactone 25 daily Tele Full code Plan discussed with: Patient My Orders Orders - TOMMY PERALES MD Procedure Category Date Status Time * Cabinet Mounter CONS 03/19/25 Transmitted Consult Date of Service: Mar 19, 2025 Billing Provider: TOMMY PERALES MD Common Visit Codes: [id number] INP/OBS CARE(HIGH) TOMMY PERALES MD Mar 19, 2025 13:46
[2025-03-20 01:00] VITALS: BP 119/84; PULSE 82; RESP 17; TEMP 97.7; O2SAT 100
[2025-03-20 05:00] VITALS: BP 104/78; PULSE 86; RESP 18; TEMP 98.3; O2SAT 96
[2025-03-20 08:00] VITALS: PULSE 82
[2025-03-20 09:00] VITALS: BP 113/75; PULSE 71; RESP 17; TEMP 98; O2SAT 95
--- NOTE | 2025-03-20 09:25 | DVHPN2 ---
Reviewed: Care Plan, H&P, Labs, Medications, Previous Orders, Radiology, Other (Consultation) Changes from previous H/P or p: No Changes General: Per HPI Objective Vitals Vital Signs Date Time Temp Pulse Resp B/P (MAP) Pulse Ox O2 Delivery O2 Flow Rate FiO2 03/20/25 05:00 98.3 86 18 104/78 (87) 96 98.3 03/19/25 20:00 Nasal Cannula* 3 32 Intake/Output Intake and Output 03/20/25 07:00 Intake Total 1330 ml Output Total 500 ml Balance 830 ml Intake Oral 880 ml IV Total 50 ml Tube Feeding 400 ml Output Urine Total 500 ml # Bowel Movements 2 Exam GEN: Healthy appearing, well-developed, NAD. On oxygen nasal cannula 2 L HEENT: NC/AT; MMM. CV: Irregularly irregular. No murmurs LUNGS: CTAB, no w/r/c. Significant rales up to middle lungs bilaterally ABD: Soft, NT/ND, NBS, no masses or organomegaly. EXT: skin Warm, well perfused. no rashes. Pitting edema up to shins bilaterally 2 to 3+ NEURO: Ambulating with no limitations. No focal deficits. General Appearance: Alert, Oriented X3, Cooperative, No acute distress HEENT: Atraumatic Lungs: Other (Decreased air entry bilaterally with a scattered crackles) Cardiovascular: Other (Irregularly irregular) Abdomen: Normal bowel sounds, Soft, No tenderness Genitourinary: Other (Swartz's in place) Neuro: Normal speech, Cranial nerves 3-12 NL Skin: Other (Please kindly refer to wound care photos for details; all lesions were present on admission) Psych/Mental Status: Mental status NL, Mood NL Medications Current Medications Medications Dose Ordered Sig/Leonard Route Start Time Stop Time Status Last Admin Dose Admin Nitroglycerin 0.4 mg Q5MINP PRN SL 03/06/25 20:15 03/06/25 20:25 0.4 MG Sodium Chloride 1 spr QID EACHNOSTRI 03/06/25 23:00 03/19/25 17:44 1 SPR Empaglifozin 10 mg DAILY PO 03/07/25 10:00 03/19/25 09:18 10 MG Albuterol 2.5 mg Q6HPRN PRN NEB 03/06/25 23:00 Cancel Ondansetron HCl 4 mg Q4HP PRN IV 03/06/25 23:15 Hold Acetaminophen 650 mg Q6HP PRN PO 03/06/25 23:15 03/18/25 18:50 650 MG Atorvastatin Calcium 40 mg HS PO 03/07/25 22:00 03/19/25 21:20 40 MG Enoxaparin Sodium 80 mg Q12HR SC 03/09/25 22:00 03/19/25 21:21 80 MG Spironolactone 25 mg DAILY PO 03/10/25 10:00 03/19/25 09:18 25 MG Famotidine 20 mg DAILY IV 03/13/25 10:00 03/19/25 09:18 20 MG Acetaminophen/ Hydrocodone Bitart 1 tab Q4HP PRN PO 03/12/25 15:45 03/20/25 05:14 1 TAB Morphine Sulfate 1 mg Q4HP PRN IV 03/12/25 16:15 03/20/25 02:24 1 MG Gabapentin 100 mg BID PO 03/12/25 22:00 03/19/25 21:20 100 MG Lorazepam 1 mg Q4HP PRN PO 03/12/25 16:30 03/12/25 17:34 1 MG Metoprolol Tartrate 12.5 mg BID PO 03/13/25 10:15 03/19/25 21:20 12.5 MG Ceftriaxone Sodium 50 ml @ 100 mls/hr DAILY@09 IV 03/16/25 09:00 03/19/25 09:17 100 MLS/HR Laboratory Results Laboratory Tests 03/19/25 05:58 Microbiology Microbiology Date/Time Source Procedure Growth Status 03/14/25 15:30 Blood Blood Culture - Final NO GROWTH AFTER 5 DAYS OF INCUBATION. Complete 03/06/25 21:32 Buttock Gram Stain - Final Complete 03/06/25 21:32 Wound Culture - Final Klebsiella pneumoniae Complete Labs and/or images reviewed: Labs reviewed by me, Image(s) reviewed by me Assessment/Plan Assessment/Plan 80-year-old female presents for evaluation of shortness for breath. Patient endorses a three day history of worsening shortness for breath with associated substernal chest pressure. Denies cough or fever. No other acute complaints reported. Past Medical History CHF, hypertension, asthma, atrial fibrillation 03/09: Patient hospice revoked, here for heart failure exacerbation also has pulmonary hypertension. Severely volume overload we will continue Lasix 20 IV b.i.d.. We will start wound care and physical therapy. 03/10: Patient is still volume overload. We will follow him labs today which showed elevated bicarb significantly, hypokalemia significant. We will give potassium 40 mEq pill 3 times 2 hours apart. Repeat BNP in the evening. We will keep Lasix 20 IV b.i.d. as bicarb was rising. We will give acetazolamide 500 p.o. once and recheck BNP. Otherwise continue other present management medications. Continue diuresis. We will order wound care and PT today. 03/11: Patient will discuss code status with , currently we will keep full code. Urine output over 24 hours only 1.2 L, we will continue Aldactone current dose and increase Lasix to 40 IV b.i.d.. Continue nasal cannula oxygen maintain oxygen saturation 92-95. Continuing accurate I&Os,. Continue q.2h turns and Medihoney dressing change daily with wound cleansing. Continue PT therapy. 03/12: Patient is still severely edematous, moving lower extremities, PT is ordered. Apparently urine output is 1.4 L only from yesterday. We will increase Lasix 60 t.i.d.. We will get ABG as bicarb is I ruled out hypercarbia. If there is no hypercarbia we will give acetazolamide. 03/13: Labs suggestive of JULIANNA, we will hold further Lasix. On exam still we will volume overload attempt edema lower extremity +1 to +2. We got ABG gas showing no hypercarbia. Patient is in metabolic alkalosis from diuresis. Blood pressure low. We will give 250 bolus LR, hold off Lasix. Patient is more sleepy this a.m.. We will repeat CBC, ammonia, Mag phos, BNP,. We will get portable chest x-ray., Elevate legs. Hold blood pressure medications, except change Coreg to metoprolol tartrate 12.5 b.i.d... Patient is on oxygen 3 L home oxygen level. Decrease breath sounds at bases. - ammonia ok. tn neg. cxr looks clear. bnp mar 1100 to 500s. labs look good. bicarb high with met graciela. will give 1x iv 250 acetazolamide. otherwise continue 1.2L fluid rst intake and will hold iv lasix today 03/14: Patient is sleepy again this morning. Yesterday she had similar presentation in the a.m., by the p.m. she wakes up. We have already checked hypercarbia, ammonia, TSH. With our trial of diuresis patient develop JULIANNA. We gave acetazolamide yesterday which has improved patient is metabolic alkalosis. We are holding Lasix. Creatinine is increased from 1.1-1.2, we will give another 250 bolus fluids and repeat BMP for creatinine in afternoon. Discussed with daughter Aidan, as patient was too sleepy. If creatinine is improving we will discharge patient back to [facility] hospice agency. Patient needs to be referred to [place] wound care, continue Lasix 20 oral only once daily (prior was twice daily). Continue other medications per hospice. Patient will need following of renal function, defer to hospice agency. 03/19- apparently opiate overdosing caused ALOC on 03/14, s/p naloxone. patient looks better today. discussed disposition and patient wants to try SNF, can also do wound care there. unable to diurese as paatient has advanced pulm HTN. needs swartz change still. tolerating po. will finisih abx in snf, bactrim 7 days. 03/20: We will continue planning for SNF for acute PT rehab and wound care. Social to present options to patient. We will restart Lasix 40 IV daily, change Swartz if it has been more than 1 month. We will continue pain control, use some muscle relaxants. Baclofen 5 b.i.d. for 7 days. diagnosis: Acute on chronic hypoxic respiratory failure likely due to acute on chronic systolic heart failure Suspected sepsis due to Klebsiella pneumoniae wounds infection; all wounds were present on admission CAD status post coronary angiogram with left heart catheterization on 09/29/2024 (mild CAD of RCA) Acute toxic encephalopathy due to opioid overdose; resolved after treatment with IV naloxone Atrial fibrillation status post two direct current cardioversions (on Eliquis) Pain due to rule decubitus wounds; POA Physical deconditioning HTN heart disease with LVH Chronic kidney disease Hypertension Hyperlipidemia Severe tricuspid insufficiency Pulmonary hypertension COPD on home O2 Asthma Severe hypokalemia History of tobacco use Morbidly obese, Class 3 plan: Tylenol, Tracy for pain Albuterol for shortness for breath prn Lipitor 40 HS Coreg 3 b.i.d. Jardiance 10 Lovenox 80 q.12 Lasix 20 IV b.i.d. 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
[2025-03-20 13:00] VITALS: BP 120/75; PULSE 69; RESP 18; TEMP 98; O2SAT 98
--- NOTE | 2025-03-20 14:25 | DVHDS2 ---
Discharge Summary Date of Admission Mar 06, 2025 at 20:04 Date of Discharge: Mar 08, 2025 Labs/Diagnostic Data: Laboratory Results Test 03/19/25 05:58 03/15/25 05:20 03/14/25 15:20 03/13/25 14:27 White Blood Count 7.9 10^3/uL (4.4-10.8) Red Blood Count 5.04 10^6/uL (4.0-5.20) Hemoglobin 13.7 g/dL (12.2-16.2) Hematocrit 42.6 % (36.0-46.0) Mean Corpuscular Volume 84.4 fL (80.0-100.0) Mean Corpuscular Hemoglobin 27.2 pg (28.0-32.0) Mean Corpuscular Hemoglobin Concent 32.2 g/dL (32.0-36.0) Red Cell Distribution Width 24.6 % (11.8-14.3) Platelet Count 267 10^3/uL (140-450) Mean Platelet Volume 7.6 fL (6.9-10.8) Neutrophils (%) (Auto) 66.9 % (37.0-80.0) Lymphocytes (%) (Auto) 24.0 % (10.0-50.0) Monocytes (%) (Auto) 8.2 % (0.0-12.0) Eosinophils (%) (Auto) 0.5 % (0.0-7.0) Basophils (%) (Auto) 0.4 % (0.0-2.0) Neutrophils # (Auto) 5.3 10 ^3/uL (1.6-8.6) Lymphocytes # (Auto) 1.9 10 ^3/uL (0.4-5.4) Monocytes # (Auto) 0.7 10 ^3/uL (0-1.3) Eosinophils # (Auto) 0 10 ^3/uL (0-0.8) Basophils # (Auto) 0 10 ^3/uL (0-0.2) Nucleated Red Blood Cells 0.2 % Sodium Level 135 mmol/L (136-145) Potassium Level 3.6 mmol/L (3.5-5.1) Chloride Level 96 mmol/L (98-107) Carbon Dioxide Level 27 mmol/L (20-31) Anion Gap 12 (5-15) Blood Urea Nitrogen 21 mg/dL (9-23) Creatinine 1.08 mg/dL (0.550-1.02) Glomerular Filtration Rate Calc 52 mL/min (>90) BUN/Creatinine Ratio 19.4 (10.0-20.0) Serum Glucose 74 mg/dL (74-106) Calcium Level 8.8 mg/dL (8.7-10.4) Total Bilirubin 0.7 mg/dL (0.2-1.0) Aspartate Amino Transferase (AST) 29 U/L (13-40) Alanine Aminotransferase (ALT) 18 U/L (7-40) Alkaline Phosphatase 130 U/L (46-116) Total Protein 5.8 g/dL (5.7-8.2) Albumin 3.1 g/dL (3.2-4.8) Phosphorus Level 2.4 mg/dL (2.4-5.1) Magnesium Level 1.5 mg/dL (1.6-2.6) Direct Bilirubin 0.5 mg/dL (<0.3) Thyroid Stimulating Hormone (TSH) 2.09 uIU/mL (0.55-4.78) Troponin I High Sensitivity 10 ng/L (</=34) Test 03/13/25 10:37 03/12/25 16:22 03/07/25 04:32 03/06/25 23:17 D-Dimer, Quantitative < 0.19 mg/L FEU (0.0-0.49) Ammonia < 10 umol/L (11-32) B-Type Natriuretic Peptide 565.98 pg/mL (0-100) Blood Gas Specimen Type Arterial Blood Gas Sample Site Right radial Blood Gas Patient Temperature 37.0 Arterial Blood Date Drawn [id number] Arterial Blood pH 7.557 (7.350-7.450) Arterial Blood Partial Pressure CO2 31.5 mmHg (32.0-45.0) Arterial Blood Partial Pressure O2 99.0 mmHg (83.0-108.0) Arterial Blood HCO3 27.4 mmol/L (21.0-28.0) Arterial Blood Oxygen Saturation 98.1 % (94.0-98.0) Arterial Blood Base Excess 5.7 mmol/L (-2.0-3.0) Arterial Blood Oxyhemoglobin 96.8 % (94.0-98.0) Arterial Blood Carboxyhemoglobin 0.9 % (0.5-1.5) Arterial Blood Methemoglobin 0.4 % (0.0-1.5) Arterial Blood Deoxyhemoglobin 1.9 % (0.0-5.0) [place] Test Yes Blood Gas Total Hemoglobin 15.00 g/dL (12.0-16.0) Blood Gas Liter Flow 3.00 Blood Gas Modality Nasal cannula FiO2 % 32.0 Blood Gas Critical Value Read Back yes Blood Gas Notified Whom alok giron Blood Gas Notified Time [id number] Blood Gas Notified By colin brown Triglycerides Level 94 mg/dL (< 150) Cholesterol Level 101 mg/dL (< 200) LDL Cholesterol 48 mg/dL (< 100) HDL Cholesterol 30 mg/dL (40-59) Prothrombin Time 13.6 sec (9.3-11.8) Prothrombin Time INR 1.32 (0.9-1.15) Activated Partial Thromboplast Time 33.9 SEC (24.5-34.5) Other Laboratory Tests 03/19/25 05:58 Brief Hx & Hospital Course: 80-year-old female presents for evaluation of shortness for breath. Patient endorses a three day history of worsening shortness for breath with associated substernal chest pressure. Denies cough or fever. No other acute complaints reported. Past Medical History CHF, hypertension, asthma, atrial fibrillation 03/09: Patient hospice revoked, here for heart failure exacerbation also has pulmonary hypertension. Severely volume overload we will continue Lasix 20 IV b.i.d.. We will start wound care and physical therapy. 03/10: Patient is still volume overload. We will follow him labs today which showed elevated bicarb significantly, hypokalemia significant. We will give potassium 40 mEq pill 3 times 2 hours apart. Repeat BNP in the evening. We will keep Lasix 20 IV b.i.d. as bicarb was rising. We will give acetazolamide 500 p.o. once and recheck BNP. Otherwise continue other present management medications. Continue diuresis. We will order wound care and PT today. 03/11: Patient will discuss code status with , currently we will keep full code. Urine output over 24 hours only 1.2 L, we will continue Aldactone current dose and increase Lasix to 40 IV b.i.d.. Continue nasal cannula oxygen maintain oxygen saturation 92-95. Continuing accurate I&Os,. Continue q.2h turns and Medihoney dressing change daily with wound cleansing. Continue PT therapy. 03/12: Patient is still severely edematous, moving lower extremities, PT is ordered. Apparently urine output is 1.4 L only from yesterday. We will increase Lasix 60 t.i.d.. We will get ABG as bicarb is I ruled out hypercarbia. If there is no hypercarbia we will give acetazolamide. 03/13: Labs suggestive of JULIANNA, we will hold further Lasix. On exam still we will volume overload attempt edema lower extremity +1 to +2. We got ABG gas showing no hypercarbia. Patient is in metabolic alkalosis from diuresis. Blood pressure low. We will give 250 bolus LR, hold off Lasix. Patient is more sleepy this a.m.. We will repeat CBC, ammonia, Mag phos, BNP,. We will get portable chest x-ray., Elevate legs. Hold blood pressure medications, except change Coreg to metoprolol tartrate 12.5 b.i.d... Patient is on oxygen 3 L home oxygen level. Decrease breath sounds at bases. - ammonia ok. tn neg. cxr looks clear. bnp mar 1100 to 500s. labs look good. bicarb high with met graciela. will give 1x iv 250 acetazolamide. otherwise continue 1.2L fluid rst intake and will hold iv lasix today 03/14: Patient is sleepy again this morning. Yesterday she had similar presentation in the a.m., by the p.m. she wakes up. We have already checked hypercarbia, ammonia, TSH. With our trial of diuresis patient develop JULIANNA. We gave acetazolamide yesterday which has improved patient is metabolic alkalosis. We are holding Lasix. Creatinine is increased from 1.1-1.2, we will give another 250 bolus fluids and repeat BMP for creatinine in afternoon. Discussed with daughter Aidan, as patient was too sleepy. If creatinine is improving we will discharge patient back to [facility] hospice agency. Patient needs to be referred to [place] wound care, continue Lasix 20 oral only once daily (prior was twice daily). Continue other medications per hospice. Patient will need following of renal function, defer to hospice agency. 03/19- apparently opiate overdosing caused ALOC on 03/14, s/p naloxone. patient looks better today. discussed disposition and patient wants to try SNF, can also do wound care there. unable to diurese as paatient has advanced pulm HTN. needs swartz change still. tolerating po. will finisih abx in snf, bactrim 7 days. 03/20: We will continue planning for SNF for acute PT rehab and wound care. Social to present options to patient. We will restart Lasix 40 IV daily, change Swartz if it has been more than 1 month. We will continue pain control, use some muscle relaxants. Baclofen 5 b.i.d. for 7 days. diagnosis: Acute on chronic hypoxic respiratory failure likely due to acute on chronic systolic heart failure Suspected sepsis due to Klebsiella pneumoniae wounds infection; all wounds were present on admission CAD status post coronary angiogram with left heart catheterization on 09/29/2024 (mild CAD of RCA) Acute toxic encephalopathy due to opioid overdose; resolved after treatment with IV naloxone Atrial fibrillation status post two direct current cardioversions (on Eliquis) Pain due to rule decubitus wounds; POA Physical deconditioning HTN heart disease with LVH Chronic kidney disease Hypertension Hyperlipidemia Severe tricuspid insufficiency Pulmonary hypertension COPD on home O2 Asthma Severe hypokalemia History of tobacco use Morbidly obese, Class 3 Plan: - Continue physical therapy in acute PT rehab at SNF facility . SNF facility to continue wound care for sacral wound, with daily application med honey and dry gauze changes and continue q.2h turns - Continuing Lasix 40 daily - Continue other home medications - Continue oxygen 1-2 L, reassess requirement defer to SNF facility - Continue Bactrim DS b.i.d. for additional 5 days - Baclofen 5 b.i.d. for 7 days - Continue other medications per RIGOBERTO (Lipitor 40 daily, Jardiance 10 daily, gabapentin 100 mg twice daily, metoprolol 12.5 mg twice daily, Aldactone 25 mg daily,). Minimize use of benzodiazepines and excessive opiates, these have resulted inpatient becoming altered Condition at Discharge: Poor Final Diagnosis/Problems List Acute on chronic hypoxic respiratory failure likely due to acute on chronic systolic heart failure Suspected sepsis due to Klebsiella pneumoniae wounds infection; all wounds were present on admission CAD status post coronary angiogram with left heart catheterization on 09/29/2024 (mild CAD of RCA) Acute toxic encephalopathy due to opioid overdose; resolved after treatment with IV naloxone Atrial fibrillation status post two direct current cardioversions (on Eliquis) Pain due to rule decubitus wounds; POA Physical deconditioning HTN heart disease with LVH Chronic kidney disease Hypertension Hyperlipidemia Severe tricuspid insufficiency Pulmonary hypertension COPD on home O2 Asthma Severe hypokalemia History of tobacco use Morbidly obese, Class 3 Discharge Disposition: Shelter Facility Discharge Instruct/Medications Diet: Cardiac 2g Na,low cholest Activity: Light activity Follow Up/Referral: Resume all previous home medications Follow up with your hospice Dr and primary Dr Medications: none Scheduled Albuterol Sulfate (Albuterol Sulfate Hfa), 108 MCG IN BID Albuterol Sulfate (Ventolin Mdi), 90 MCG IN QID Allopurinol (Allopurinol), 1 TAB PO DAILY, (Reported) Amlodipine Besylate (Amlodipine Besylate), 1 TAB PO DAILY Apixaban Base (Eliquis), 1 TAB PO BID Aspirin (Aspir-Low), 81 MG PO DAILY Atorvastatin Calcium (Atorvastatin Calcium), 1 TAB PO DAILY Azithromycin (Azithromycin), 1 TAB PO DAILY Cholecalciferol (Vitamin D3), 1 TAB PO DAILY, (Reported) Doxycycline Hyclate (Doxycycline Hyclate), 100 MG PO BID Empagliflozin (Jardiance), 10 MG PO DAILY Furosemide (Furosemide), 1 TAB PO BID, (Reported) Lisinopril (Lisinopril), 1 TAB PO DAILY Metoprolol Succinate (Metoprolol Succinate Er), 1 TAB PO DAILY Mometasone Furoate-Formoterol (Dulera), INH UD, (Reported) Mometasone Furoate-Formoterol (Dulera), 2 PUFF INH BID, (Reported) Oxycodone Hcl (OxyCONTIN ER Tablet), 1 TAB PO BID Potassium Chloride (Potassium Chloride ER), 1 TAB PO DAILY, (Reported) Spironolactone (Aldactone), 1 TAB PO DAILY Sulfamethoxazole W/Trimethopri (Bactrim Ds Tablet), 1 TAB PO BID Umeclidinium [place] (Incruse Ellipta), 62.5 MCG IN DAILY Scheduled PRN Calcium Carbonate (Antacid) (Antacid), 750 MG PO DAILYPRN PRN Hydrocodone-Acetaminophen (Hydrocodone Bitartrate/AC 5-325 mg), 1 TAB PO QID PRN Naloxone HCl (Narcan), 4 MG NA PRN PRN Ondansetron HCl (Ondansetron), 4 MG PO PRN PRN for NAUSEA / VOMITING Miscellaneous Medications Senna (Sennosides), 8.6 MG PO, (Reported) Discharge Statement: "Patient was advised to return to the ER or call 911 if any headaches, dizziness, shortness of breath, chest pain, abdominal pain, bleeding, fevers, or worsening of medical condition. Patient was counseled about treatment plan, medications, possible side effects, patientverbalized understanding. All questions were answered to the best of my ability. This discharge took greater then 30 minutes in planning, reviewing documentation, counseling the patient, and discussing with other team members." Date of Service: Mar 20, 2025 Billing Provider: TOMMY PERALES MD Common Visit Codes: 77542-ZRM/OBS DISCH DAY >30min TOMMY PERALES MD Mar 20, 2025 14:25
[2025-03-20] MEDS: FUROSEMIDE 20 MG TAB PO SCH (14:30)
[2025-03-20] MEDS ORDERED: BACLOFEN 10 MG TAB PO SCH (22:00)
[2025-03-20] MEDS ORDERED: SULFAMETHOX W/TRIMETH(800/160MG) DS TAB PO SCH (22:00)
== END 2025-03-20 18:52 | DRG 871 ==
LOC: ER 16:41 → EDBD 16:41 → OVERFLOW 20:04 → MERGE 20:04 → TELE-CENTR 03-07 21:18
PROVIDERS: ADMIT Student in an Organized Health Care Education/Training Program; ATTEND Student in an Organized Health Care Education/Training Program
DX: A41.59 Other Gram-negative sepsis (principal); G92.8 Other toxic encephalopathy; L89.313 Pressure ulcer of right buttock, stage 3; J96.21 Acute and chronic respiratory failure with hypoxia; I50.23 Acute on chronic systolic (congestive) heart failure; Z79.01 Long term (current) use of anticoagulants; B96.1 Klebsiella pneumoniae [K. pneumoniae] as the cause of diseases classified elsewhere; I13.0 Hypertensive heart and chronic kidney disease with heart failure and stage 1 through stage 4 chronic kidney disease, or unspecified chronic kidney disease; I27.20 Pulmonary hypertension, unspecified; J44.89 Other specified chronic obstructive pulmonary disease; N18.9 Chronic kidney disease, unspecified; I07.1 Rheumatic tricuspid insufficiency; E66.813 Obesity, class 3; Z99.81 Dependence on supplemental oxygen; T40.2X1A Poisoning by other opioids, accidental (unintentional), initial encounter; I48.91 Unspecified atrial fibrillation; I25.10 Atherosclerotic heart disease of native coronary artery without angina pectoris; I45.10 Unspecified right bundle-branch block; E87.6 Hypokalemia; E78.00 Pure hypercholesterolemia, unspecified; F41.9 Anxiety disorder, unspecified; F17.200 Nicotine dependence, unspecified, uncomplicated; Z88.0 Allergy status to penicillin; Z85.3 Personal history of malignant neoplasm of breast; Z80.0 Family history of malignant neoplasm of digestive organs; Z83.3 Family history of diabetes mellitus; Z90.13 Acquired absence of bilateral breasts and nipples; Z90.49 Acquired absence of other specified parts of digestive tract; Z79.82 Long term (current) use of aspirin; Z79.899 Other long term (current) drug therapy; Y92.89 Other specified places as the place of occurrence of the external cause; Z68.35 Body mass index [BMI] 35.0-35.9, adult
CPT/HCPCS: 36415; 36600; 70450; 71045; 80048; 80053; 80061; 80076; 82140; 82565; 82805; 83735; 83880; 84100; 84443; 84484; 85025; 85379; 85610; 85730; 87040; 87077; 87081; 87186; 87205; 93005; 93306; 97110; 97163; 97164; 97530; G0378; J1885; J2003; J2185; J3490